=== PATIENT | female | born 1985 | race Caucasian/White ===

== ENCOUNTER 2018-04-30 15:58 | Emergency (ER) | payer MEDICARE, MEDICAID, SELFPAY ==
[2018-04-30 16:00] VITALS: BP 152/90; PULSE 103; RESP 18; TEMP 37.1; O2SAT 95; BMI 45.2
--- NOTE | 2018-04-30 16:10 | RAD_ITS ---
STUDY: X-RAY - ABDOMEN/PELVIS REASON FOR EXAM: Female, 33 years old. Constipation x3 days TECHNIQUE: Two AP supine views of the abdomen and pelvis. COMPARISON: None. FINDINGS: Normal visualized lung bases. Generalized paucity of bowel gas. Only mild fecal retention is noted in the rectosigmoid colon. There is no demonstrated free abdominal air. The visualized liver, spleen and kidneys are grossly normal in size and morphology. Normal soft tissue structures. Normal visualized osseous structures. RAD/Abdomen Single View IMPRESSION: No evidence of obstruction. Generalized paucity of bowel gas. Small amount of fecal retention in the rectosigmoid colon. Electronically Signed: Surendra Collins DO at 16:40 EDT Tel , Service support ,
--- NOTE | 2018-04-30 16:11 | ED.VISSUMM ---
- ER Visit Summary Date of Service: 04/30/18 Chief Complaint: Constipation History of Present Illness: The patient is a 33 F reports constipation for the past couple of days. She feels the urge to have a bowel movement but unable to pass stool. She reports rectal pressure but no abdominal pain. She denies any change in medication. She states she recently stopped drinking pop and started drinking more coffee. Prior abdominal surgery significant for cholecystectomy. She is on the Depo shot. Physical Examination: Vital signs unremarkable. Patient standing at bedside no acute distress. Heart is regular rate and rhythm. Lung sounds are clear. Abdomen is soft and nontender. Hypoactive bowel sounds noted throughout. Test Results: Abdominal x-ray reveals no obstruction. There is a small amount of fecal retention in the rectosigmoid colon. Emergency Department Course and Treatment: Rectal exam was performed. There is soft stool in the rectal vault. A soapsuds enema is performed with good results. On repeat evaluation patient feels significantly improved. Treatment Plan: [] Disposition: Discharge Impression: Constipation This note was generated with [employer] dictation software. It may contain incorrect words, spelling, and punctuation that were not noted in review of the chart prior to signing ED Disposition - Plan for ED Patient: Chief Complaint: Constipation Referrals: Winston Ruiz DO [Primary Care Provider] -
--- NOTE | 2018-04-30 18:12 | ED.DEP ---
ED Disposition - Plan for ED Patient: Disposition: Home or Assisted Living Chief Complaint: Constipation Instructions: ED Constipation Referrals: Winston Ruiz DO [Primary Care Provider] - As Needed
--- NOTE | 2018-04-30 18:21 | ED.RN ---
DISCHARGE INSTRUCTIONS GIVEN TO AND REVIEWED WITH PATIENT, PATIENT DENIES QUESTIONS OR CONCERNS AND VOICES UNDERSTANDING OF DISCHARGE INSTRUCTIONS. PT AMBULATES OUT OF ROOM WITHOUT DIFFICULTY .
== END 2018-04-30 18:22 | disposition home or self-care (01) ==
PROVIDERS: Emergency Provider Emergency Medicine; Family Provider Student in an Organized Health Care Education/Training Program; PCP Student in an Organized Health Care Education/Training Program
DX: K59.00 Constipation, unspecified (principal); E78.00 Pure hypercholesterolemia, unspecified; K21.9 Gastro-esophageal reflux disease without esophagitis; Z79.899 Other long term (current) drug therapy; Z72.0 Tobacco use
CPT/HCPCS: 74018; 99284

== ENCOUNTER 2020-05-31 07:12 | Emergency (ER) | payer MEDICARE, MEDICAID, SELFPAY ==
[2020-05-31 07:13] VITALS: BP 146/109; PULSE 99; RESP 16; TEMP 36.4; O2SAT 97; BMI 51.6
--- NOTE | 2020-05-31 07:23 | EKG12_ITS ---
Test Reason : Blood Pressure : / mmHG Vent. Rate : 087 BPM Atrial Rate : 087 BPM P-R Int : 164 ms QRS Dur : 100 ms QT Int : 380 ms P-R-T Axes : 045 011 018 degrees QTc Int : 457 ms Normal sinus rhythm Normal ECG Confirmed by CARLINE MELENDEZ, AUDRA ([id number]), production editor CODY LLANOS ([id number]) on 06/04/2020 11:12:47 AM Referred By: KRISTEN Confirmed By:AUDRA CROWLEY MD
--- NOTE | 2020-05-31 07:35 | ED.VIS.PSYCH ---
History of Present Illness Chief Complaint: Suicidal Informant: Patient Onset: Weeks Context: Sudden Onset Conflict: - - Is continued medication 1 month ago because father thought she was taking too many pills. She lives with her father and 2 children who are 13 and 10 years of age. Timing: Continuous Current Severity: Mild Maximum Severity: Moderate Worsened by: - - Continuation of medicine because her father thought she was taking too many medications. Relieved by: Nothing Associated Symptoms: Depressed, Change in sleeping, Decreased Interest, Suicidal Thoughts. Negative for: Change in Eating, Guilt, Hopelessness, Easily distracted, Grandiosity, Flight of Ideas, Increased activity, Pressured Speech, Agitated, Angry, Hostile, Threatening, Confusion, Paranoia, Visual Hallucinations, Auditory Hallucinations Specific plan (suicidal thought): Overdose Narrative: Patient a 35-year-old woman who has history of psychiatric disorders and has been admitted 13 times for suicidal ideation and prior attempts. She presents because she is thought of hurting herself for the past week. She states she would overdose. She discontinued taking her medications 1 month ago because her father told her that she is taking too many meds and she should not be on that many meds. She also states that he looked up the side effects and noted there were many side effects. Patient states she does not have menstrual periods. She did not have any exposure to person under investigation for Covid or symptoms of Covid. She has no other complaints. Prior similar symptoms: Yes Recent Illness/Hospitalization: No - Last admission several years ago. - Past Medical History (1) Suicidal behavior Status: Acute (2) Bipolar disorder Status: Chronic (3) Depression Status: Chronic (4) History of posttraumatic stress disorder (PTSD) Status: Chronic Past Medical History - Allergies and Home Meds Allergies/Adverse Reactions: Allergies adhesive tape Allergy (Verified 05/31/20 07:13) Rash mirtazapine [From Remeron] Adverse Reaction (Intermediate, Verified 04/30/18 16:00) EXTREME MOOD SWINGS EXTREME MOOD SWINGS Primary Care Physician: Winston Ruiz DO [Primary Care Provider] - Prior records reviewed: Yes Surgical History: cholecystectomy, - - states she had collapsed lungs at one time Lives: With Family Smoking Status: Former smoker Alcohol: None Drugs: None - Family History Maternal Family History: Reports: No pertinent history Paternal Family History: Reports: No pertinent history Review of Systems General: Denies: Chills, Fever, Sweats Eyes: Denies: Visual changes - bilaterally, Blurred Vision - bilaterally, Diplopia ENT: Denies: Bilateral ear pain, Rhinorrhea, Sore throat Cardiovascular: Denies: Chest pain, Palpitations Respiratory: Reports: Dyspnea on exertion - Patient states minimal activity causes her to be short of breath. This is a chronic issue.. Denies: Dyspnea, Cough Gastrointestinal: Denies: Abdominal pain, Nausea, Vomiting, Diarrhea, Melena, Hematochezia Genitourinary: Denies: Dysuria, Hematuria, Frequency Musculoskeletal: Denies: Back pain, Extremity Pain Skin: Denies: Rash, Wounds Neurological: Denies: Headache, Weakness, Numbness Psych: Reports: Depression, Anxiety, Suicidal thoughts, Suicidal ideations Endocrine: Denies: Polyuria, Polydipsia Hematologic: Denies: Easy bruising, Easy bleeding Physical Exam Vital Signs/Narrative: Vital Signs Temp Pulse Resp BP Pulse Ox 05/31/20 07:13 97.6 F L 99 16 146/109 H 97 Inital Vital Signs reviewed: Yes General: Well nourished, Well developed, Obese Head: Normocephalic, Atraumatic Eyes: Perrl, EOMI ENT: Moist mucous membranes, No rhinorrhea Neck: Supple, Nontender, No lymphadenopathy, No JVD Cardiovascular: Regular rate, Regular rhythm, No murmurs, Normal S1, Normal S2 Respiratory: No distress, CTA bilaterally, Chest nontender Abdomen: Soft, Nontender, Nondistended, Normal bowel sounds, No masses Back: Nontender, Normal Inspection Extremities: Nontender, No Edema, Healed prior injuries Skin: Normal color, No rash Neurological: Alert, Oriented x3, Cranial nerves II-XII grossly intact, Normal Strength, Normal Sensation Psych: Depressed, Blunted Affect, Poverty of Speech, Suicidal thoughts, Limited Insight, Limited Judgement. Negative for: Logical sequential goal directed thoughts, No suicidal or homicidal ideation, Normal Stable Appropriate Affect, Good Insight, Good Judgement, Normal Appearance, Irritable, Euphoric, Labile, Pressured Speech, Flight of Ideas, Incoherent thoughts, Homicidal thoughts, Hallucinations, Delusions, Paranoid Ideation Diagnostic/Tx/Re-eval Laboratory Results 05/31/20 05/31/20 05/31/20 07:40 07:40 07:40 WBC 8.1 RBC 5.33 Hgb 14.9 Hct 45.9 MCV 86.1 MCH 28.0 MCHC 32.5 RDW Std Deviation 38.7 RDW Coeff of Jeri 12.3 Plt Count 324 MPV 9.7 Immature Gran % (Auto) 0.400 Neut % (Auto) 49.4 Lymph % (Auto) 36.4 [place] % (Auto) 10.5 H Eos % (Auto) 2.6 Baso % (Auto) 0.7 Absolute Neuts (auto) 4.0 Absolute Lymphs (auto) 2.95 Nucleated RBC % 0 Sodium 139 Potassium 3.4 L Chloride 102 Carbon Dioxide 30.0 Anion Gap 7 BUN 10 Creatinine 0.88 Estim Creat Clear Calc 95.57 Est GFR (MDRD) Af Amer 94 Est GFR (MDRD) Non-Af 77 BUN/Creatinine Ratio 11.4 Glucose 98 Calcium 8.9 Serum , Qual Urine Color Urine Clarity Urine pH Ur Specific Mina Urine Protein Urine Glucose (UA) Urine Ketones Urine Occult Blood Urine Nitrite Urine Bilirubin Urine Urobilinogen Ur Leukocyte Esterase Urine RBC Urine WBC Ur Squamous Epith Cells Urine Bacteria Urine Mucus Urine Opiates Screen Urine Methadone Screen Ur Barbiturates Screen Ur Phencyclidine Scrn Ur Amphetamines Screen U Methamphetamin-MDMA U Benzodiazepines Scrn Urine Cocaine Screen U Cannabinoids Screen Ur Drug Screen Comment Ethyl Alcohol < 3.0 05/31/20 05/31/20 05/31/20 07:40 07:40 07:40 WBC RBC Hgb Hct MCV MCH MCHC RDW Std Deviation RDW Coeff of Jeri Plt Count MPV Immature Gran % (Auto) Neut % (Auto) Lymph % (Auto) [place] % (Auto) Eos % (Auto) Baso % (Auto) Absolute Neuts (auto) Absolute Lymphs (auto) Nucleated RBC % Sodium Potassium Chloride Carbon Dioxide Anion Gap BUN Creatinine Estim Creat Clear Calc Est GFR (MDRD) Af Amer Est GFR (MDRD) Non-Af BUN/Creatinine Ratio Glucose Calcium Serum , Qual NEGATIVE Urine Color Yellow Urine Clarity Clear Urine pH 6.0 Ur Specific Mina 1.015 Urine Protein Negative Urine Glucose (UA) Normal Urine Ketones Negative Urine Occult Blood 10 H Urine Nitrite Negative Urine Bilirubin Negative Urine Urobilinogen Normal Ur Leukocyte Esterase Negative Urine RBC 0-5 SEEN Urine WBC 0 SEEN Ur Squamous Epith Cells 5-10 SEEN Urine Bacteria 2+ Urine Mucus 0 SEEN Urine Opiates Screen NEGATIVE Urine Methadone Screen NEGATIVE Ur Barbiturates Screen NEGATIVE Ur Phencyclidine Scrn NEGATIVE Ur Amphetamines Screen NEGATIVE U Methamphetamin-MDMA NEGATIVE U Benzodiazepines Scrn NEGATIVE Urine Cocaine Screen NEGATIVE U Cannabinoids Screen NEGATIVE Ur Drug Screen Comment Ethyl Alcohol Has bacteriuria without symptoms. There is no evidence of infection since there is no pyuria and the macro is negative for leukoesterase and nitrites. This is a contaminated specimen since she has 5-10 epithelial cells which is abnormal. Her graph based on my medical opinion patient is medically cleared for transfer to psychiatric facility to receive definitive care for her depression and suicidal ideation. - EKG Initial EKG Interpretation: Sinus Rhythm - Normal sinus rhythm with a ventricular rate 87. CO interval 164 ms. QRS duration 100 ms. QT duration 380 ms. [place] is normal. The EKG is normal. Restraints applied: No Suicide precautions were initiated. Appropriate laboratory screening tests were ordered. Will obtain psychiatric evaluation for patient. Patient was accepted by psychiatrist at [facility]. [place] slip has been completed by me. ED Disposition - Plan for ED Patient: Disposition: Psychiatric Hospital or Unit Diagnosis: Depression with suicidal ideation Referrals: Winston Ruiz DO [Primary Care Provider] -
[2020-05-31 07:59] LABS: Mucous, Urine 0 SEEN /hpf (<or=2+); White Blood Cells 0 SEEN /hpf (0-5)
[2020-05-31 08:11] LABS: Color, Urine Yellow (Yellow); Glucose, Dipstick Normal (Normal); Ketone-Dipstick Negative (Negative); Leukocyte Esterase-Dipstick Negative /ul (Negative); Nitrite-Dipstick Negative (Negative); Occult Blood-Urine 10 /ul (Negative); Protein-Dipstick Negative (Negative); Specific Gravity, Urine 1.015 (1.002-1.030); Urine Bilirubin Dipstick Negative (Negative); Urine Clarity Clear (Clear); Urine Urobilinogen Normal (Normal)
[2020-05-31 08:16] VITALS: RESP 18
[2020-05-31 08:16] LABS: Absolute Lymphocyte Count 2.95 X10^3/uL (0.83-4.51); Basophil# 0.06 X10^3/uL; Basophil% 0.7 % (0-1); Eosinophil# 0.21 X10^3/uL; Eosinophils% 2.6 % (0-5); Hematocrit 45.9 % (37-47); Hemoglobin 14.9 g/dL (12.0-15.0); Lymphocyte # 2.95 X10^3/ul (4.0); Lymphocyte % 36.4 % (19-41); Mean Corp Hgb Conc 32.5 g/dL (32-36); Mean Corpuscular Volume 86.1 fL (81-99); Mean Platelet Vol. 9.7 fl (6.2-12.0); Monocyte# 0.85 X10^3/uL; Monocyte% 10.5 % (0-10); NRBC Flagged by Analyzer 0 % (0-5); Neutrophil % 49.4 % (47-70); Platelet Count 324 K/mm3 (150-450); RBC Distribution Width CV 12.3 % (11.6-14.6); RBC Distribution Width SD 38.7 fl (35.1-43.9); Red Blood Count 5.33 M/mm3 (4.2-5.4); White Blood Count 8.1 K/mm3 (4.4-11.0)
[2020-05-31 08:17] LABS: Bacteria 2+ /hpf (None Seen); Red Blood Cells-Urine 0-5 SEEN /hpf (0-5); Squamous Epithelial Cells - UA 5-10 SEEN /hpf (5-10)
[2020-05-31 08:19] LABS: Amphetamine Urine VISTA NEGATIVE (<1000 ng/mL); Barbiturate Urine VISTA NEGATIVE (< 200 ng/mL); Benzodiazepine Urine VISTA NEGATIVE (< 200 ng/mL); Cocaine Urine VISTA NEGATIVE (< 300 ng/mL); Ecstacy Urine VISTA NEGATIVE (< 500 ng/mL); Methadone Urine VISTA NEGATIVE (< 300 ng/mL); PCP Urine VISTA NEGATIVE (< 25 ng/mL); THC Urine VISTA NEGATIVE (< 50 ng/mL); Vista UDS pH Range 5
[2020-05-31 08:22] LABS: Internal QC Validated? YES +Cl - CLEAR BKGD; Pregnancy, Serum, hCG Quali. NEGATIVE Negative
[2020-05-31 08:24] LABS: Alcohol, Blood (Medical)-Serum < 3.0 mg/dL
[2020-05-31 08:25] LABS: Anion Gap 7 (5-15); BUN 10 mg/dL (7-18); BUN/Creat Ratio 11.4 RATIO (10-20); Calcium,Total 8.9 mg/dL (8.5-10.1); Chloride 102 mmol/L (98-107); Creatinine, Serum 0.88 mg/dL (0.55-1.02); EST Glomerular Filtration Rate 77 mL/min (>60); Est Glom Filt Rate - Afr Amer 94 mL/min (>60); Estimated Creatinine Clearance 95.57 ml/min; Glucose 98 mg/dL (74-106); Potassium 3.4 mmol/L (3.5-5.1); Sodium Level 139 mmol/L (136-145)
--- NOTE | 2020-05-31 08:31 | NURSING ---
CALLED [facility]. NEED TO FAX CHART TO THEM.
--- NOTE | 2020-05-31 08:39 | NURSING ---
FAXED CHART TO [facility]. [phone]
[2020-05-31] MEDS: LORazepam 1 MG Tablet PO (08:57)
--- NOTE | 2020-05-31 09:11 | NURSING ---
NORMAN, [facility], CALLED TO TALK TO PATIENT
[2020-05-31 10:08] VITALS: RESP 16
[2020-05-31 11:03] VITALS: RESP 14
--- NOTE | 2020-05-31 11:46 | NURSING ---
FAXED COVID RESULTS TO [facility]
--- NOTE | 2020-05-31 12:23 | CM.ED ---
Social Work Telephone call from Marce at [facility], Marce reporting that patient has been accepted at [facility] and to have updated ED staff on patient being accepted. Marce inquiring about this socially responsible investment adviser being able to assist with a release of information for patient director of casework department. Marce to fax release of information and this socially responsible investment adviser to speak with patient about signing release of information. Will continue to follow. Jacinta LIMA, VEGA
--- NOTE | 2020-05-31 12:48 | CM.ED ---
Social Work Release of information obtained. This social media project manager met with patient in room. Introduced self and social media project manager role. This social media project manager updated patient on patient transfer to [facility], patient voiced understanding. This social media project manager broached topic of release of information for the [facility]. Patient signing release of information. Patient with no further questions. Patient did request for patient father, Amaury to be updated on patient transfer. Telephone call to Amaury: This social media project manager updated Amaury on patient disposition. Amaury thanking this social media project manager. Signed release of information faxed back to the [facility]. Attn: Hanna. Jacinta Lancaster LINE HAUL OWNER OPERATOR, VEGA
[2020-05-31 13:00] VITALS: BP 119/81; PULSE 89; RESP 18; O2SAT 98
[2020-05-31 14:05] VITALS: PULSE 17
== END 2020-05-31 16:00 ==
PROVIDERS: Emergency Provider Emergency Medicine; PCP Student in an Organized Health Care Education/Training Program
DX: F31.9 Bipolar disorder, unspecified (principal); F43.10 Post-traumatic stress disorder, unspecified; R45.851 Suicidal ideations; E66.9 Obesity, unspecified; Z87.891 Personal history of nicotine dependence; Z91.5 Personal history of self-harm
CPT/HCPCS: 80048; 80307; 80320; 81001; 84703; 85025; 87635; 93005; 99284; G0480; U0002

== ENCOUNTER 2020-11-04 08:50 | Emergency (ER) | payer MEDICARE, MEDICAID, SELFPAY ==
[2020-11-04 08:51] VITALS: BP 165/111; PULSE 105; RESP 16; TEMP 35.7; O2SAT 99; BMI 61.6
--- NOTE | 2020-11-04 09:05 | ED.DCSUM_ITS ---
History of Present Illness Chief Complaint: Chest Pain Informant: Patient Narrative: 35-year-old female presents with chest pain that radiates to her back for several months. She states that it worse with eating and swallowing. She states that yesterday she could feel her food going down the center of her chest going into her back and it burned. It is worse with laying down. She states that her blood pressure was recently elevated and she was placed on lisinopril 10 mg. This was 1 month ago. She tells me that she missed her appointment for follow-up. She states that she takes 2 medications for heartburn as this feels similar she wanted to mention that. She had an appointment with a surgeon who recommended an EGD but that they could not proceed into her blood pressure was better. She currently takes famotidine and pantoprazole for GERD. She states she has been on those 2 medications for years. The patient states that she has some mental health disorders that present her from regularly seeing doctors. She called her doctor's office today to schedule follow-up but she states she was referred here for chest pain evaluation. She denies any known coronary artery disease. She has a history of smoking (having quit greater than 3 months ago) as well as polysubstance drug abuse. She denies any prior stress test or heart catheterization. - Past Medical History (1) Bipolar disorder Status: Chronic (2) Depression Status: Chronic (3) Anxiety Status: Chronic Past Medical History - Allergies and Home Meds Allergies/Adverse Reactions: Allergies adhesive tape Allergy (Verified 11/04/20 08:51) Rash mirtazapine [From Remeron] Adverse Reaction (Intermediate, Verified 11/04/20 08:51) EXTREME MOOD SWINGS EXTREME MOOD SWINGS Primary Care Physician: Winston Ruiz DO [Primary Care Provider] - 1 Week Past Medical History: - - Hypertension GERD Surgical History: cholecystectomy, - - states she had collapsed lungs at one time Smoking Status: Former smoker Drugs: - - Sober - Family History Maternal Family History: Reports: No pertinent history Paternal Family History: Reports: No pertinent history Review of Systems General: Reports: Malaise. Denies: Chills, Fever, Sweats Eyes: Denies: Visual changes - bilaterally, Diplopia ENT: Denies: Rhinorrhea, Sore throat Cardiovascular: Reports: Chest pain. Denies: Palpitations Respiratory: Denies: Dyspnea, Cough, Dyspnea on exertion Gastrointestinal: Reports: Nausea. Denies: Abdominal pain, Vomiting, Diarrhea, Melena, Hematochezia Genitourinary: Denies: Dysuria, Hematuria, Frequency Musculoskeletal: Denies: Back pain, Extremity Pain Skin: Denies: Rash, Wounds Neurological: Denies: Headache, Weakness, Numbness Physical Exam Vital Signs/Narrative: Vital Signs Temp Pulse Resp BP Pulse Ox 11/04/20 08:51 96.3 F L 105 H 16 165/111 H 99 Inital Vital Signs reviewed: Yes General: Well nourished, Well developed, Obese, No Acute Distress Head: Normocephalic, Atraumatic Eyes: Perrl, EOMI ENT: Moist mucous membranes, No rhinorrhea Neck: Supple, Nontender Cardiovascular: Regular rate, Regular rhythm, No murmurs Respiratory: No distress, CTA bilaterally, Chest nontender Abdomen: Soft, Nontender, Nondistended, Normal bowel sounds Back: Nontender, Normal Inspection Extremities: Nontender, No edema Skin: Normal color, No rash, - - Multiple healed extremity lacerations from self cutting Neurological: Alert, Oriented x3, Cranial nerves II-XII grossly intact, Normal Strength, Normal Sensation Psychological: Normal affect, Normal Mood Diagnostic/Tx/Re-eval Clinical Impression(s) from Imaging Studies Chest X-Ray 11/04/20 09:36 IMPRESSION: Normal x-ray examination of the chest and unchanged since 03/17/2016. Electronically Signed: Phong Rizzo MD at 10:01 EDT , Service support , Laboratory Last Values WBC 7.0 K/mm3 (4.4-11.0) 11/04/20 09:25 RBC 4.97 M/mm3 (4.2-5.4) 11/04/20 09:25 Hgb 13.8 g/dL (12.0-15.0) 11/04/20 09:25 Hct 41.6 % (37-47) 11/04/20 09:25 MCV 83.7 fL (81-99) 11/04/20 09:25 MCH 27.8 pg (27.0-32.0) 11/04/20 09:25 MCHC 33.2 g/dL (32-36) 11/04/20 09:25 RDW Std Deviation 38.5 fl (35.1-43.9) 11/04/20 09:25 RDW Coeff of Jeri 12.8 % (11.6-14.6) 11/04/20 09:25 Plt Count 303 K/mm3 (150-450) 11/04/20 09:25 MPV 9.9 fl (6.2-12.0) 11/04/20 09:25 Immature Gran % (Auto) 0.100 % (0.0-0.9) 11/04/20 09:25 Neut % (Auto) 47.0 % (47-70) 11/04/20 09:25 Lymph % (Auto) 38.9 % (19-41) 11/04/20 09:25 [place] % (Auto) 10.4 % (0-10) H 11/04/20 09:25 Eos % (Auto) 2.9 % (0-5) 11/04/20 09:25 Baso % (Auto) 0.7 % (0-1) 11/04/20 09:25 Absolute Neuts (auto) 3.3 X10^3/uL (2.0-7.7) 11/04/20 09:25 Absolute Lymphs (auto) 2.73 X10^3/uL (0.83-4.51) 11/04/20 09:25 Nucleated RBC % 0 % (0-5) 11/04/20 09:25 Sodium 135 mmol/L (136-145) L 11/04/20 09:25 Potassium 4.3 mmol/L (3.5-5.1) 11/04/20 09:25 Chloride 102 mmol/L (98-107) 11/04/20 09:25 Carbon Dioxide 29.0 mmol/L (21.0-32.0) 11/04/20 09:25 Anion Gap 4 (5-15) L 11/04/20 09:25 BUN 8 mg/dL (7-18) 11/04/20 09:25 Creatinine 0.81 mg/dL (0.55-1.02) 11/04/20 09:25 Estim Creat Clear Calc 89.89 ml/min 04/05/21 09:25 Est GFR (MDRD) Af Amer 102 mL/min (>60) 11/04/20 09:25 Est GFR (MDRD) Non-Af 85 mL/min (>60) 11/04/20 09:25 BUN/Creatinine Ratio 9.9 RATIO (10-20) L 11/04/20 09:25 Glucose 112 mg/dL (74-106) H 11/04/20 09:25 Calcium 8.7 mg/dL (8.5-10.1) 11/04/20 09:25 Troponin I < 0.015 ng/mL (<0.045) 11/04/20 09:25 - EKG Initial EKG Interpretation: Sinus Rhythm - EKG demonstrates a normal sinus rhythm at a rate of 91. No concerning features of ACS or ectopy noted. This appears grossly unchanged from EKG dated 31 May 2020. - Medical Decision Making Potation of the single portable chest x-ray is no acute process. EKG is a normal sinus rhythm. CBC BMP negative and troponin is negative. Patient does have risk factors for coronary artery disease (obesity and being a former smoker) I think is more likely that her chest pain is noncardiac from GERD and possibly from her hypertension. Her can increase her lisinopril to 20 mg a day have her record her readings and discuss with her doctor. I can also add some Carafate. She needs to see her doctor in about 1 week and they can reevaluate discuss potential need for cardiac stress testing. ED Disposition - Plan for ED Patient: Disposition: Home or Assisted Living Diagnosis: Hypertension, Chest pain, GERD (gastroesophageal reflux disease), Obesity Instructions: ED Chest Pain, Uncertain Cause, ED GERD (Adult), ED Hypertension, Established Prescriptions: Sucralfate [Carafate] 1 gm PO 4X/DAY #56 tab Prescription Printed Lisinopril [Zestril] 20 mg PO DAILY #30 tab Prescription Printed Referrals: Winston Ruiz DO [Primary Care Provider] - 1 Week Additional Instructions: I would recommend increasing your lisinopril to 20 mg a day. You should monitor your blood pressure and report the readings to your doctor in 1 week. I would recommend adding Carafate to your reflux regimen for the next 2 weeks.
--- NOTE | 2020-11-04 09:22 | EKG12_ITS ---
Test Reason : CP Blood Pressure : / mmHG Vent. Rate : 091 BPM Atrial Rate : 091 BPM P-R Int : 158 ms QRS Dur : 094 ms QT Int : 378 ms P-R-T Axes : 034 018 014 degrees QTc Int : 464 ms Normal sinus rhythm Normal ECG Confirmed by JUAREZ MELENDEZ, JULI ([id number]), staff editor FOREIGN SIMENTAL ([id number]) on 11/08/2020 2:22:45 PM Referred By: LING Confirmed By:JULI PIZARRO MD
--- NOTE | 2020-11-04 09:36 | RAD_ITS ---
STUDY: X-RAY CHEST REASON FOR EXAM: Female, 35 years old. Chest pain TECHNIQUE: AP upright portable view. COMPARISON: 03/17/2016. FINDINGS: The lungs are clear and expanded. There is no demonstrated pleural abnormality. Normal size heart. Normal mediastinum and sharlene. Normal visualized pulmonary arteries. Normal visualized aortic arch and descending thoracic aorta. Normal visualized thoracic spine. Normal visualized ribs, clavicles, and shoulders. There is no demonstrated abnormality of the visualized soft tissue structures of the upper abdomen. RAD/Chest 1 View (Portable) IMPRESSION: Normal x-ray examination of the chest and unchanged since 03/17/2016. Electronically Signed: Phong Rizzo MD at 10:01 EDT , Service support ,
[2020-11-04 09:40] LABS: Absolute Lymphocyte Count 2.73 X10^3/uL (0.83-4.51); Absolute Neutrophil Count 3.3 X10^3/uL (2.0-7.7); Basophil# 0.05 X10^3/uL; Basophil% 0.7 % (0-1); Eosinophils% 2.9 % (0-5); Hematocrit 41.6 % (37-47); Hemoglobin 13.8 g/dL (12.0-15.0); Lymphocyte # 2.73 X10^3/ul (4.0); Lymphocyte % 38.9 % (19-41); Mean Corp Hgb Conc 33.2 g/dL (32-36); Mean Corpuscular Hgb 27.8 pg (27.0-32.0); Mean Corpuscular Volume 83.7 fL (81-99); Mean Platelet Vol. 9.9 fl (6.2-12.0); Monocyte# 0.73 X10^3/uL; Monocyte% 10.4 % (0-10); NRBC Flagged by Analyzer 0 % (0-5); Neutrophil # 3.29 X10^3/uL (2.7-7.7); Platelet Count 303 K/mm3 (150-450); RBC Distribution Width CV 12.8 % (11.6-14.6); RBC Distribution Width SD 38.5 fl (35.1-43.9); Red Blood Count 4.97 M/mm3 (4.2-5.4)
[2020-11-04 10:06] LABS: Anion Gap 4 (5-15); BUN 8 mg/dL (7-18); BUN/Creat Ratio 9.9 RATIO (10-20); Calcium,Total 8.7 mg/dL (8.5-10.1); Chloride 102 mmol/L (98-107); Creatinine, Serum 0.81 mg/dL (0.55-1.02); EST Glomerular Filtration Rate 85 mL/min (>60); Est Glom Filt Rate - Afr Amer 102 mL/min (>60); Estimated Creatinine Clearance 89.89 ml/min; Glucose 112 mg/dL (74-106); Potassium 4.3 mmol/L (3.5-5.1); Sodium Level 135 mmol/L (136-145)
[2020-11-04 10:29] VITALS: BP 185/121; PULSE 74; RESP 16; O2SAT 97
== END 2020-11-04 10:29 | disposition home or self-care (01) ==
PROVIDERS: Emergency Provider Emergency Medicine; PCP Student in an Organized Health Care Education/Training Program
DX: R07.9 Chest pain, unspecified (principal); I10 Essential (primary) hypertension; K21.9 Gastro-esophageal reflux disease without esophagitis; F31.9 Bipolar disorder, unspecified; E66.9 Obesity, unspecified; Z68.44 Body mass index [BMI] 60.0-69.9, adult; Z79.899 Other long term (current) drug therapy; Z87.891 Personal history of nicotine dependence
CPT/HCPCS: 71045; 80048; 84484; 85025; 93005; 99285

== ENCOUNTER 2021-01-21 13:11 | Emergency (ER) | payer MEDICARE, MEDICAID, SELFPAY ==
[2021-01-21 13:12] VITALS: BP 130/59; PULSE 108; RESP 18; TEMP 36.2; O2SAT 96; BMI 55.9
--- NOTE | 2021-01-21 13:14 | RAD_ITS ---
STUDY: X-RAY - LEFT ANKLE REASON FOR EXAM: Female, 35 years old. INJURY TECHNIQUE: view(s) of the ankle. COMPARISON: None. FINDINGS: There is no evidence of osseous or articular abnormality seen. The ankle mortise is unremarkable. No soft tissue swelling There is large plantar heel spur. RAD/Ankle min 3 Views IMPRESSION: There is evidence of plantar heel spur there rest of the study is negative. Electronically Signed: [place], at 13:36 EDT Tel , Service support ,
--- NOTE | 2021-01-21 15:26 | EDS_ITS ---
HPI History of Present Illness HPI Narrative: Patient presents with left ankle injury that occurred yesterday. Patient states she tripped and fell. Patient states her pain is worse over the ankle and forefoot. Patient describes her pain as dull and aching. Patient states pain is worse with movement and weightbearing. Patient denies any paresthesias or weakness. Patient denies any other injuries. Chief Complaint: Lower Extremity Injury Occured/Mechanism Mechanism/Context: Yes fall Onset/Context/Timing Onset: Yesterday Context: Sudden Onset Timing: Continuous Quality of Pain: Dull and Aching Location: Left foot and ankle Worsened by: Weightbearing and ambulation Relieved by: Nothing Associated Symptoms Associated Symptoms: Negative for Parasthesia and Weakness PFSH [facility] Medical History Bipolar disorder Home Medications pantoprazole 40 mg PO DAILY 12/19/15 [History Last Taken 02/18/17 08:00] cholecalciferol (vitamin D3) 1 cap PO MO 02/11/17 [History Last Taken Unknown] duloxetine 30 mg PO DAILY 11/04/20 [History Last Taken Unknown] famotidine 40 mg PO BID 11/04/20 [History Last Taken Unknown] lisinopril 10 mg PO DAILY 11/04/20 [History Last Taken Unknown] lisinopril 20 mg PO DAILY #30 tab 11/04/20 [Rx Last Taken Unknown] sucralfate 1 gm PO 4X/DAY #56 tab 11/04/20 [Rx Last Taken Unknown] Allergy/AdvReac Type Severity Reaction Status Date / Time adhesive tape Allergy Rash Verified 01/21/21 13:13 mirtazapine [From Remeron] AdvReac Intermediate EXTREME Verified 01/21/21 13:13 MOOD SWINGS Social History Smoking Status: Never smoker ROS ROS ED Constitutional Constitutional ED: Denies chills or fever(s) Eyes Eyes: Denies blurry vision or change in vision ENT ENT ED: Denies rhinorrhea or sore throat Cardiovascular Cardiovascular: Denies chest pain or palpitations Respiratory/Chest Respiratory/Chest: Denies cough or dyspnea Gastrointestinal Gastrointestinal: Denies nausea or vomiting Genitourinary Genitourinary ED: Denies dysuria or hematuria Musculoskeletal Musculoskeletal: Denies back pain or neck pain Integumentary Denies abscess or rash Neurologic Neurologic: Denies headache(s) or weakness Allergic/Immunologic Allergic/Immunologic ED: Denies mouth swelling or urticaria EXAM Physical Exam Const Vital Signs: 01/21/21 13:12 01/21/21 15:44 Temperature 97.2 F L Temperature Source Temporal Pulse Rate 108 H 81 Respiratory Rate 18 18 Blood Pressure 130/59 H Blood Pressure Mean 82 Pulse Ox 96 Oxygen Delivery Method Room Air Positive well nourished, well developed and obese General Appearance ED: well developed Nutritional Appearance: obese HEENT Reports moist mucous membranes normocephalic Extremity Extremity Narrative: There is tenderness and mild edema over the left forefoot, midfoot, and left ankle. There is no deformity. There is no bony crepitance or step-off. There is no ecchymosis noted. Range of motion was limited in all motions of the left foot and ankle secondary to pain. Pedal pulses are equal bilateral. Sensation was intact to light touch in all digits. Capillary refill was less than 2 seconds in all digits. Neuro oriented x3, CN's II-XII intact bilaterally, moves all extremities and no sensory deficits noted Sensorium / Orientation: alert Psych mental status grossly normal MDM MDM MDM Narrative Medical decision making narrative: X-rays of the left foot were obtained. There are 3 views. On my interpretation, there is no acute fracture. There is no dislocation. There is no soft tissue swelling. Radiologist also interpreted the x-rays and agrees. Patient was given a walking boot. Patient was instructed to ice and elevate the left foot and ankle. Patient was instructed to take Tylenol as needed for pain. Patient was instructed to follow-up with her primary care physician in 5 to 7 days. Patient understood and was agreeable with the plan. All questions were answered. Radiography Diagnostic Testing: Radiology Impression Ankle X-Ray 01/21/21 13:14 IMPRESSION: There is evidence of plantar heel spur there rest of the study is negative. Electronically Signed: Sarwat Murphyjacey, at 13:36 EDT Tel , Service support , Discharge Plan Triage Chief Complaint: Lower Extremity Injury ED Provider: Parviz Condon Dx/Rx/DC Orders Clinical Impression: Sprain of left foot Instructions: ED Foot Sprain Prescriptions: No Action pantoprazole 40 MG tablet 40 mg PO DAILY RF: 0 cholecalciferol (vitamin D3) 50,000 UNIT capsule 1 cap PO MO RF: 0 famotidine 40 MG tablet 40 mg PO BID RF: 0 lisinopril 10 MG tablet 10 mg PO DAILY RF: 0 duloxetine 30 MG capsule 30 mg PO DAILY RF: 0 lisinopril 20 MG tablet 20 mg PO DAILY Qty: 30 RF: 0 sucralfate 1 GM tablet 1 gm PO 4X/DAY Qty: 56 RF: 0 Primary Care Provider: Winston Ruiz Referrals: Wisnton Ruiz DO [Primary Care Provider] - 5-7 Days Disposition Disposition: Home, Self Care Discharge Date/Time: 01/21/21 15:47
[2021-01-21 15:44] VITALS: PULSE 81; RESP 18
--- NOTE | 2021-01-21 15:46 | ED.RN ---
THIS NURSE REVIEWED D/C INSTRUCTIONS WITH PT. PT VERBALIZED UNDERSTANDING OF INSTRUCTIONS. PT DENIES FURTHER NEEDS OR QUESTIONS AT THIS TIME
== END 2021-01-21 15:47 | disposition home or self-care (01) ==
PROVIDERS: Emergency Provider Emergency Medicine; PCP Student in an Organized Health Care Education/Training Program
DX: S93.602A Unspecified sprain of left foot, initial encounter (principal); E66.9 Obesity, unspecified; W01.0XXA Fall on same level from slipping, tripping and stumbling without subsequent striking against object, initial encounter
CPT/HCPCS: 73610; 99282

== ENCOUNTER 2021-04-30 13:01 | Emergency (ER) | payer MEDICARE, MEDICAID, SELFPAY ==
[2021-04-30 13:02] VITALS: BP 164/131; PULSE 120; RESP 19; TEMP 36.3; O2SAT 100; BMI 53.1
--- NOTE | 2021-04-30 14:20 | EDS_ITS ---
HPI History of Present Illness Chief Complaint: Suicidal Informant: patient Onset/Context/Timing Onset: Month(s) Context: Gradual Onset Timing: Continuous Quality: Suicidal thoughts Worsened by: Nothing Relieved by: Nothing Narrative Narrative: Patient presents with suicidal ideations that have been getting worse over the past few months. Patient states she stopped taking her medications months ago. Patient states she has thought of overdosing on her pills. Patient states that after she stopped taking her medications the started using medical marijuana. Patient states she stopped that 3 days ago. Patient states she has been having some auditory and visual hallucinations. Patient states her visual hallucinations were that the blanket on her bed was moving and she was seeing shadows and flashes of light. Patient states her auditory hallucinations were hearing music and a john of air past her ear. PFSH PFS Medical History (Updated 04/30/21 @ 17:[address] Parviz Condon DO) Bipolar disorder HTN (hypertension) Home Medications NK 04/30/21 [History Last Taken Unknown] Allergy/AdvReac Type Severity Reaction Status Date / Time adhesive tape Allergy Rash Verified 04/30/21 13:04 mirtazapine [From Remeron] AdvReac Intermediate EXTREME Verified 04/30/21 13:04 MOOD SWINGS Surgical History (Updated 04/30/21 @ 14:[address] Parviz Condon DO) History of lung surgery Hx of cholecystectomy Social History (Updated 04/30/21 @ 14:[address] Parviz Condon DO) Smoking Status: Former smoker substance use type: marijuana ROS ROS ED Constitutional Constitutional ED: Denies chills or fever(s) Eyes Eyes: Denies blurry vision or change in vision ENT ENT ED: Denies rhinorrhea or sore throat Cardiovascular Cardiovascular: Denies chest pain or palpitations Respiratory/Chest Respiratory/Chest: Reports dyspnea; Denies cough Gastrointestinal Gastrointestinal: Reports nausea and vomiting Genitourinary Genitourinary ED: Denies dysuria or hematuria Musculoskeletal Musculoskeletal: Reports back pain and neck pain Integumentary Denies abscess or rash Neurologic Neurologic: Reports headache(s); Denies weakness Psychiatric Psychiatric: Reports depression, suicidal thoughts and visual hallucinations Allergic/Immunologic Allergic/Immunologic ED: Denies mouth swelling or urticaria EXAM Physical Exam Const Vital Signs: 04/30/21 13:02 04/30/21 17:07 04/30/21 18:46 Temperature 97.3 F L Temperature Source Temporal Pulse Rate 120 H 88 78 Respiratory Rate 19 H 18 16 Blood Pressure 164/131 H 132/91 H Blood Pressure Mean 142 104 Pulse Ox 100 98 Oxygen Delivery Method Room Air Room Air 04/30/21 20:26 04/30/21 21:38 Temperature Temperature Source Pulse Rate Respiratory Rate 20 H 18 Blood Pressure Blood Pressure Mean Pulse Ox Oxygen Delivery Method Positive well nourished, well developed and obese General Appearance ED: well developed Nutritional Appearance: obese morbidly obese HEENT normocephalic and atraumatic Neck supple and no JVD Resp normal respiratory effort and clear to auscultation bilaterally Cardio no murmurs Rate: regular rate Rhythm: regular rhythm GI non-tender and non-distended Auscultation: normoactive bowel sounds Palpation: soft Extremity normal to inspection General Extremety ED: Negative for edema or tenderness General Extremity: Negative for edema Neuro oriented x3, CN's II-XII intact bilaterally and no sensory deficits noted Sensorium / Orientation: alert Motor Exam: strength 5/5 throughout Psych mental status grossly normal Activity / Motor Behavior: avoids eye contact Speech: soft Mood & Affect: depressed and flat affect Thought Content: suicidality Skin Rashes: no rashes MDM MDM MDM Narrative Medical decision making narrative: Patient was given a dose of Vistaril here for her anxiety. CBC and comprehensive metabolic profile were obtained and were essentially within normal limits. Serum alcohol level was normal. Urine toxin was positive for benzodiazepines and cannabinoids. Serum hCG was negative. EKG was obtained. On my interpretation, it showed a normal sinus rhythm with a rate of 78. ND interval, QRS interval, and QTc intervals were all normal. [place] was normal. There are no acute ST or T wave changes. Patient is medically cleared for psychiatric placement. [place] slip was placed on the chart. highway maintenance worker is attempting to find placement for the patient. She was able to find placement at [facility]. Patient will be transferred there. Lab Data Attestation: I reviewed the patient's lab results. Labs: Laboratory Results - last 24 hr 04/30/21 04/30/21 04/30/21 14:09 14:09 14:09 WBC 5.7 RBC 5.72 H Hgb 15.9 H Hct 49.1 H MCV 85.8 MCH 27.8 MCHC 32.4 RDW Std Deviation 40.3 RDW Coeff of Jeri 13.1 Plt Count 352 MPV 10.3 Immature Gran % (Auto) 0.000 Neut % (Auto) 47.2 Lymph % (Auto) 40.9 [place] % (Auto) 8.5 Eos % (Auto) 2.5 Baso % (Auto) 0.9 Absolute Neuts (auto) 2.7 Absolute Lymphs (auto) 2.32 Nucleated RBC % 0 Sodium 139 Potassium 3.7 Chloride 102 Carbon Dioxide 29.0 Anion Gap 8 BUN 6 L Creatinine 0.96 Estim Creat Clear Calc 86.76 Est GFR (MDRD) Af Amer 84 Est GFR (MDRD) Non-Af 69 BUN/Creatinine Ratio 6.2 L Glucose 101 Calcium 10.2 H Total Bilirubin 1.10 H AST 154 H ALT 107 H Alkaline Phosphatase 80 Total Protein 8.4 H Albumin 4.7 Globulin 3.7 Albumin/Globulin Ratio 1.3 Serum , Qual Urine Opiates Screen Urine Methadone Screen Ur Barbiturates Screen Ur Phencyclidine Scrn Ur Amphetamines Screen U Methamphetamin-MDMA U Benzodiazepines Scrn Urine Cocaine Screen U Cannabinoids Screen Ur Drug Screen Comment Ethyl Alcohol < 3.0 04/30/21 04/30/21 14:09 16:15 WBC RBC Hgb Hct MCV MCH MCHC RDW Std Deviation RDW Coeff of Jeri Plt Count MPV Immature Gran % (Auto) Neut % (Auto) Lymph % (Auto) [place] % (Auto) Eos % (Auto) Baso % (Auto) Absolute Neuts (auto) Absolute Lymphs (auto) Nucleated RBC % Sodium Potassium Chloride Carbon Dioxide Anion Gap BUN Creatinine Estim Creat Clear Calc Est GFR (MDRD) Af Amer Est GFR (MDRD) Non-Af BUN/Creatinine Ratio Glucose Calcium Total Bilirubin AST ALT Alkaline Phosphatase Total Protein Albumin Globulin Albumin/Globulin Ratio Serum , Qual NEGATIVE Urine Opiates Screen NEGATIVE Urine Methadone Screen NEGATIVE Ur Barbiturates Screen NEGATIVE Ur Phencyclidine Scrn NEGATIVE Ur Amphetamines Screen NEGATIVE U Methamphetamin-MDMA NEGATIVE U Benzodiazepines Scrn POSITIVE H Urine Cocaine Screen NEGATIVE U Cannabinoids Screen POSITIVE H Ur Drug Screen Comment Ethyl Alcohol EKG Initial EKG: Attestation: I personally reviewed and interpreted this EKG as follows: Interpretation: Sinus Rhythm (78) and No Acute Injury Pattern Prior EKG tracings: available for review Prior: Unchanged (11/04/2020) Discharge Plan Triage Chief Complaint: Suicidal ED Provider: Parviz Condon Dx/Rx/DC Orders Clinical Impression: Depression with suicidal ideation Prescriptions: No Action NK RF: 0 Primary Care Provider: Winston Ruiz Referrals: Winston Ruiz DO [Primary Care Provider] - Disposition Disposition: Psychiatric Hospital or Unit Discharge Location: [facility]
[2021-04-30 14:42] LABS: Absolute Lymphocyte Count 2.32 X10^3/uL (0.83-4.51); Absolute Neutrophil Count 2.7 X10^3/uL (2.0-7.7); Basophil# 0.05 X10^3/uL; Basophil% 0.9 % (0-1); Eosinophil# 0.14 X10^3/uL; Eosinophils% 2.5 % (0-5); Hematocrit 49.1 % (37-47); Hemoglobin 15.9 g/dL (12.0-15.0); Lymphocyte # 2.32 X10^3/ul (0.83-4.51); Lymphocyte % 40.9 % (19-41); Mean Corp Hgb Conc 32.4 g/dL (32-36); Mean Corpuscular Hgb 27.8 pg (27.0-32.0); Mean Corpuscular Volume 85.8 fL (81-99); Mean Platelet Vol. 10.3 fl (6.2-12.0); Monocyte# 0.48 X10^3/uL; Monocyte% 8.5 % (0-10); NRBC Flagged by Analyzer 0 % (0-5); Neutrophil # 2.68 X10^3/uL (2.7-7.7); Neutrophil % 47.2 % (47-70); Platelet Count 352 K/mm3 (150-450); RBC Distribution Width CV 13.1 % (11.6-14.6); RBC Distribution Width SD 40.3 fl (35.1-43.9); Red Blood Count 5.72 M/mm3 (4.2-5.4); White Blood Count 5.7 K/mm3 (4.4-11.0)
[2021-04-30 14:44] LABS: Internal QC Validated? YES +Cl - CLEAR BKGD; Pregnancy, Serum, hCG Quali. NEGATIVE Negative
[2021-04-30 14:48] LABS: Alcohol, Blood (Medical)-Serum < 3.0 mg/dL
[2021-04-30 14:53] LABS: ALB/GLOB Ratio 1.3 RATIO (0.9-2.4); AST(SGOT) 154 U/L (15-37); Alanine Aminotransfer ALT/SGPT 107 U/L (13-56); Albumin, Serum 4.7 g/dL (3.2-5.0); Alkaline Phosphatase 80 U/L (45-117); Anion Gap 8 (5-15); BUN 6 mg/dL (7-18); BUN/Creat Ratio 6.2 RATIO (10-20); Calcium,Total 10.2 mg/dL (8.5-10.1); Chloride 102 mmol/L (98-107); Creatinine, Serum 0.96 mg/dL (0.55-1.02); EST Glomerular Filtration Rate 69 mL/min (>60); Est Glom Filt Rate - Afr Amer 84 mL/min (>60); Estimated Creatinine Clearance 86.76 ml/min; Globulin 3.7 g/dL (2.2-4.2); Glucose 101 mg/dL (74-106); Potassium 3.7 mmol/L (3.5-5.1); Protein, Total 8.4 g/dL (6.4-8.2); Sodium Level 139 mmol/L (136-145)
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
--- NOTE | 2021-04-30 16:23 | CM.ED ---
SOCIAL WORK Referral called and faxed to [facility]. Pending review at this time. Sushma Sena, CABLE FORMER, DIESEL ENGINE ASSEMBLER
[2021-04-30] MEDS: hydrOXYzine PAM 25 MG Capsule PO (16:36)
--- NOTE | 2021-04-30 16:57 | ED.RN ---
PT'S CREDIT CARD FOUND BY THIS RN IN BATHROOM. CREDIT CARD PLACED IN PATIENT BELONGINGS SINCE PT IS IN SUICIDAL PRECAUTIONS
[2021-04-30 17:05] LABS: Amphetamine Urine VISTA NEGATIVE (<1000 ng/mL); Barbiturate Urine VISTA NEGATIVE (< 200 ng/mL); Benzodiazepine Urine VISTA POSITIVE (< 200 ng/mL); Cocaine Urine VISTA NEGATIVE (< 300 ng/mL); Ecstacy Urine VISTA NEGATIVE (< 500 ng/mL); Methadone Urine VISTA NEGATIVE (< 300 ng/mL); PCP Urine VISTA NEGATIVE (< 25 ng/mL); THC Urine VISTA POSITIVE (< 50 ng/mL); Vista UDS pH Range 5
[2021-04-30 17:07] VITALS: BP 132/91; PULSE 88; RESP 18; O2SAT 98
--- NOTE | 2021-04-30 17:34 | EKG12_ITS ---
Test Reason : MEDICAL CLEARANCE Blood Pressure : / mmHG Vent. Rate : 078 BPM Atrial Rate : 078 BPM P-R Int : 170 ms QRS Dur : 100 ms QT Int : 396 ms P-R-T Axes : 050 016 023 degrees QTc Int : 451 ms Normal sinus rhythm Normal ECG Confirmed by CARLINE MELENDEZ, AUDRA ([id number]), editor news CODY LLANOS ([id number]) on 05/05/2021 7:46:52 AM Referred By: DAVID Confirmed By:AUDRA CROWLEY MD
--- NOTE | 2021-04-30 17:48 | CM.ED ---
SOCIAL WORK Received call from [employer] requesting EKG and copy of [place]. EKG obtained. Copies faxed to [facility] at this time. Sushma Sena, PENCILLER, RAIL CAR MECHANIC
--- NOTE | 2021-04-30 18:04 | CM.ED ---
SOCIAL WORK Patient accepted to [facility] by Dr. Quinteros. Patient to go to room 111B. Nurse to call report to [phone]. Rn Lpn Lvn to set up transport. Patient updated. Sushma Sena MSW, GRADUATE TEACHING ASSISTANT
--- NOTE | 2021-04-30 18:26 | ED.RN ---
2 ATTEMPTS TO GIVE REPORT. THEY ARE TO CALL BACK.
[2021-04-30 18:46] VITALS: PULSE 78; RESP 16
--- NOTE | 2021-04-30 20:04 | CM.ED ---
SOCIAL WORK Attempted to contact [facility] and [facility] for transportation due to long wait time through [employer]. Both companies report unable to help with transport. Sushma Sena, VB NET DEVELOPER, GEODETIC TECHNICIAN
[2021-04-30 20:26] VITALS: RESP 20
[2021-04-30] MEDS: Famotidine 20 MG Tablet 40 MG PO (20:46)
[2021-04-30 21:38] VITALS: RESP 18
[2021-04-30] MEDS: MELATONIN 10 MG TABLET PO (22:45)
== END 2021-05-01 01:19 ==
PROVIDERS: Emergency Provider Emergency Medicine; PCP Student in an Organized Health Care Education/Training Program
DX: F32.9 Major depressive disorder, single episode, unspecified (principal); R45.851 Suicidal ideations; E66.01 Morbid (severe) obesity due to excess calories; F12.10 Cannabis abuse, uncomplicated; Z87.891 Personal history of nicotine dependence
CPT/HCPCS: 80053; 80307; 82077; 84703; 85025; 87426; 93005; 99285

== ENCOUNTER 2021-06-26 22:38 | Emergency (ER) | payer MEDICARE, MEDICAID, SELFPAY ==
[2021-06-26 22:39] VITALS: BP 158/100; PULSE 124; RESP 16; TEMP 36.1; O2SAT 98; BMI 51.9
--- NOTE | 2021-06-26 22:54 | EDS_ITS ---
HPI HPI - Female History of Present Illness Chief Complaint: Vag Bleeding Informant: patient Pain Pain: Positive for Pelvic Pain Onset: Yesterday Context: Gradual Onset Timing: Intermittent Quality: Positive for Cramping Location: Suprapubic Worsened by: Movement Bleeding Issue: Positive for Vaginal bleeding and Passing clots Onset: Yesterday Context: Gradual Onset Timing: Continuous Current Severity: Heavy Current pads/hr: 3 Maximum Severity: Heavy Vaginal Discharge Onset: Yesterday Associated Symptoms Associated Symptoms: Negative for Dysuria and Frequency Narrative Narrative: Patient presents with vaginal bleeding and vaginal discharge that began yesterday. Patient states that she noted some brown vaginal discharge yesterday. Patient states that today her bleeding became heavier. Patient states she has been passing some clots. Patient states that at times her bleeding is heavy enough to go through 3-4 pads per hour. Patient states that in the past she had been on the Depo-Provera shot but has not followed up with an WOOD ROOM SUPERVISOR in several months. Patient states her last normal menstrual period was approximately 5 years ago. Patient denies any dysuria or urinary frequency. PFSH PFS Medical History Bipolar disorder HTN (hypertension) Home Medications Lacto.acidophilus-Bif.animalis [Daily Probiotic] 1 cap PO DAILY 06/26/21 [History Last Taken Unknown] norethindrone acetate [Aygestin] 5 mg PO DAILY #7 tab 06/27/21 [Rx Last Taken Unknown] Allergy/AdvReac Type Severity Reaction Status Date / Time adhesive tape Allergy Rash Verified 06/26/21 22:40 mirtazapine [From Remeron] AdvReac Intermediate EXTREME Verified 06/26/21 22:40 MOOD SWINGS Surgical History History of lung surgery Hx of cholecystectomy Social History Smoking Status: Current every day smoker tobacco type: cigarettes substance use type: marijuana ROS ROS ED Constitutional Constitutional ED: Denies chills or fever(s) Eyes Eyes: Denies blurry vision or change in vision ENT ENT ED: Denies rhinorrhea or sore throat Cardiovascular Cardiovascular: Denies chest pain or palpitations Respiratory/Chest Respiratory/Chest: Denies cough or dyspnea Gastrointestinal Gastrointestinal: Reports nausea and vomiting Genitourinary Genitourinary ED: Denies dysuria or hematuria Musculoskeletal Musculoskeletal: Denies back pain or neck pain Integumentary Denies abscess or rash Neurologic Neurologic: Denies headache(s) or weakness Allergic/Immunologic Allergic/Immunologic ED: Denies mouth swelling or urticaria EXAM Physical Exam Const Vital Signs: 06/26/21 22:39 06/26/21 22:56 Temperature 96.9 F L Temperature Source Temporal Pulse Rate 124 H Pulse Rate [Lying] 98 Pulse Rate [Sitting] 106 H Pulse Rate [Standing] 121 H Respiratory Rate 16 Blood Pressure 158/100 H Blood Pressure [Lying] 114/81 H Blood Pressure [Sitting] 140/96 H Blood Pressure [Standing] 130/93 H Blood Pressure Mean 119 Blood Pressure Mean [Lying] 92 Blood Pressure Mean [Sitting] 110 Blood Pressure Mean [Standing] 105 Pulse Ox 98 Oxygen Delivery Method Room Air Positive well nourished and well developed General Appearance ED: well developed HEENT Reports moist mucous membranes Neck supple and no JVD Resp normal respiratory effort and clear to auscultation bilaterally Cardio regular rate, regular rhythm and no murmurs GI normal to inspection, nondistended, normoactive bowel sounds and non-tender Palpation: soft Extremity normal to inspection General Extremety ED: Negative for edema or tenderness General Extremity: Negative for edema Neuro oriented x3, CN's II-XII intact bilaterally and no sensory deficits noted Sensorium / Orientation: alert Motor Exam: strength 5/5 throughout Psych mental status grossly normal Skin no rashes or lesions noted MDM MDM MDM Narrative Medical decision making narrative: Patient was given IV fluids. CBC was within normal limits. Comprehensive metabolic profile was normal. Urinalysis showed occult blood of 250 with greater than 100 red blood cells. There were 0-5 white blood cells. Serum hCG was negative. Patient was advised of her findings. Patient was given a prescription for a short course of Aygestin. Patient was instructed to follow-up with her WOOD ROOM SUPERVISOR in 3 to 5 days. Patient understood and was agreeable with the plan. All questions were answered. Lab Data Attestation: I reviewed the patient's lab results. Labs: Laboratory Results - last 24 hr 06/26/21 06/26/21 06/26/21 22:50 23:15 23:15 WBC 9.5 RBC 5.09 Hgb 14.6 Hct 43.6 MCV 85.7 MCH 28.7 MCHC 33.5 RDW Std Deviation 43.6 RDW Coeff of Jeri 14.0 Plt Count 294 MPV 10.3 Immature Gran % (Auto) 0.700 Neut % (Auto) 56.5 Lymph % (Auto) 31.1 [place] % (Auto) 8.2 Eos % (Auto) 2.8 Baso % (Auto) 0.7 Absolute Neuts (auto) 5.4 Absolute Lymphs (auto) 2.97 Nucleated RBC % 0 Sodium 138 Potassium 4.1 Chloride 104 Carbon Dioxide 28.0 Anion Gap 6 BUN 4 L Creatinine 0.86 Estim Creat Clear Calc 96.85 Est GFR (MDRD) Af Amer 95 Est GFR (MDRD) Non-Af 78 BUN/Creatinine Ratio 4.6 L Glucose 108 H Calcium 8.9 Total Bilirubin 0.80 AST 51 H ALT 46 Alkaline Phosphatase 73 Total Protein 7.4 Albumin 3.5 Globulin 3.9 Albumin/Globulin Ratio 0.9 Serum , Qual Urine Color Red Urine Clarity Cloudy Urine pH 5.0 Ur Specific [place] 1.015 Urine Protein 100 H Urine Glucose (UA) Normal Urine Ketones 5 H Urine Occult Blood 250 H Urine Nitrite Negative Urine Bilirubin Negative Urine Urobilinogen Normal Ur Leukocyte Esterase 100 H Urine RBC > 100 SEEN Urine WBC 0-5 SEEN Ur Squamous Epith Cells 0-5 SEEN Urine Bacteria 1+ Urine Mucus RARE 06/26/21 23:15 WBC RBC Hgb Hct MCV MCH MCHC RDW Std Deviation RDW Coeff of Jeri Plt Count MPV Immature Gran % (Auto) Neut % (Auto) Lymph % (Auto) [place] % (Auto) Eos % (Auto) Baso % (Auto) Absolute Neuts (auto) Absolute Lymphs (auto) Nucleated RBC % Sodium Potassium Chloride Carbon Dioxide Anion Gap BUN Creatinine Estim Creat Clear Calc Est GFR (MDRD) Af Amer Est GFR (MDRD) Non-Af BUN/Creatinine Ratio Glucose Calcium Total Bilirubin AST ALT Alkaline Phosphatase Total Protein Albumin Globulin Albumin/Globulin Ratio Serum , Qual NEGATIVE Urine Color Urine Clarity Urine pH Ur Specific [place] Urine Protein Urine Glucose (UA) Urine Ketones Urine Occult Blood Urine Nitrite Urine Bilirubin Urine Urobilinogen Ur Leukocyte Esterase Urine RBC Urine WBC Ur Squamous Epith Cells Urine Bacteria Urine Mucus Discharge Plan Triage Chief Complaint: Vag Bleeding ED Provider: Parviz Condon Dx/Rx/DC Orders Clinical Impression: Abnormal vaginal bleeding Instructions: ED Dysfunctional Uterine Bleeding Prescriptions: New norethindrone acetate [Aygestin] 5 mg tablet 5 mg PO DAILY Qty: 7 RF: 0 No Action Daily Probiotic 2.5 billion cell Capsule 1 cap PO DAILY RF: 0 Primary Care Provider: Winston Ruiz Referrals: Winston Ruiz, [Primary Care Provider] - 3-5 Days Salena Solis MD [STAFF PHYSICIAN] - 3-5 Days Disposition Disposition: Home, Self Care
[2021-06-26 22:56] VITALS: BP 114/81; BP 130/93; BP 140/96; PULSE 106; PULSE 121; PULSE 98
[2021-06-26 23:06] LABS: Color, Urine Red (Yellow); Glucose, Dipstick Normal (Normal); Ketone-Dipstick 5 mg/dl (Negative); Leukocyte Esterase-Dipstick 100 /ul (Negative); Nitrite-Dipstick Negative (Negative); Occult Blood-Urine 250 /ul (Negative); Protein-Dipstick 100 mg/dl (Negative); Specific Gravity, Urine 1.015 (1.002-1.030); Urine Bilirubin Dipstick Negative (Negative); Urine Clarity Cloudy (Clear); Urine Urobilinogen Normal (Normal)
[2021-06-26 23:36] LABS: Bacteria 1+ /hpf (None Seen); Red Blood Cells-Urine > 100 SEEN /hpf (0-5); Squamous Epithelial Cells - UA 0-5 SEEN /hpf (5-10); White Blood Cells 0-5 SEEN /hpf (0-5)
[2021-06-26 23:37] LABS: Mucous, Urine RARE /hpf (<or=2+)
[2021-06-26 23:48] LABS: Absolute Lymphocyte Count 2.97 X10^3/uL (0.83-4.51); Absolute Neutrophil Count 5.4 X10^3/uL (2.0-7.7); Basophil# 0.07 X10^3/uL; Basophil% 0.7 % (0-1); Eosinophil# 0.27 X10^3/uL; Eosinophils% 2.8 % (0-5); Hematocrit 43.6 % (37-47); Hemoglobin 14.6 g/dL (12.0-15.0); Lymphocyte # 2.97 X10^3/ul (0.83-4.51); Lymphocyte % 31.1 % (19-41); Mean Corp Hgb Conc 33.5 g/dL (32-36); Mean Corpuscular Hgb 28.7 pg (27.0-32.0); Mean Corpuscular Volume 85.7 fL (81-99); Mean Platelet Vol. 10.3 fl (6.2-12.0); Monocyte# 0.78 X10^3/uL; Monocyte% 8.2 % (0-10); NRBC Flagged by Analyzer 0 % (0-5); Neutrophil # 5.38 X10^3/uL (2.7-7.7); Neutrophil % 56.5 % (47-70); Platelet Count 294 K/mm3 (150-450); RBC Distribution Width SD 43.6 fl (35.1-43.9); Red Blood Count 5.09 M/mm3 (4.2-5.4); White Blood Count 9.5 K/mm3 (4.4-11.0)
[2021-06-26 23:56] LABS: Internal QC Validated? YES +Cl - CLEAR BKGD; Pregnancy, Serum, hCG Quali. NEGATIVE Negative
[2021-06-27 00:05] LABS: ALB/GLOB Ratio 0.9 RATIO (0.9-2.4); AST(SGOT) 51 U/L (15-37); Alanine Aminotransfer ALT/SGPT 46 U/L (13-56); Albumin, Serum 3.5 g/dL (3.2-5.0); Alkaline Phosphatase 73 U/L (45-117); Anion Gap 6 (5-15); BUN 4 mg/dL (7-18); BUN/Creat Ratio 4.6 RATIO (10-20); Calcium,Total 8.9 mg/dL (8.5-10.1); Chloride 104 mmol/L (98-107); Creatinine, Serum 0.86 mg/dL (0.55-1.02); EST Glomerular Filtration Rate 78 mL/min (>60); Est Glom Filt Rate - Afr Amer 95 mL/min (>60); Estimated Creatinine Clearance 96.85 ml/min; Globulin 3.9 g/dL (2.2-4.2); Glucose 108 mg/dL (74-106); Potassium 4.1 mmol/L (3.5-5.1); Protein, Total 7.4 g/dL (6.4-8.2); Sodium Level 138 mmol/L (136-145)
[2021-06-27] MEDS: 0.9% Normal Saline 1,000 ML 1000 ML IV (00:14)
[2021-06-27 02:04] VITALS: BP 128/68; PULSE 85; RESP 18; O2SAT 99
== END 2021-06-27 02:05 | disposition home or self-care (01) ==
PROVIDERS: Emergency Provider Emergency Medicine; PCP Student in an Organized Health Care Education/Training Program
DX: N93.9 Abnormal uterine and vaginal bleeding, unspecified (principal); F17.210 Nicotine dependence, cigarettes, uncomplicated
CPT/HCPCS: 80053; 81001; 84703; 85025; 96360; 96361; 99285; J7030; A4216

== ENCOUNTER 2021-10-27 17:23 | Emergency (ER) | payer MEDICARE, MEDICAID, SELFPAY ==
[2021-10-27 17:24] VITALS: BP 150/79; PULSE 93; RESP 16; TEMP 36.2; BMI 44.4
--- NOTE | 2021-10-27 17:42 | EKG12_ITS ---
Test Reason : CP Blood Pressure : / mmHG Vent. Rate : 081 BPM Atrial Rate : 081 BPM P-R Int : 156 ms QRS Dur : 102 ms QT Int : 374 ms P-R-T Axes : 045 007 010 degrees QTc Int : 434 ms Normal sinus rhythm Normal ECG Confirmed by CARLINE MELENDEZ, AUDRA ([id number]), film editor supervisor CODY LLANOS ([id number]) on 10/28/2021 10:30:49 AM Referred By: DUKE/TIM Confirmed By:AUDRA CROWLEY MD
--- NOTE | 2021-10-27 17:44 | EDS_ITS ---
HPI History of Present Illness Chief Complaint: Chest Pain Narrative Narrative: 36-year-old female presenting with abdominal pain and cramping for 1 year. She states she seen her primary care and a GI doctor. She has had upper and lower endoscopy. She was tested for H. pylori twice. She states that nobody has found a cause. She reports an unintentional 100 pound weight loss over the last year. She has chronic nausea and diarrhea. No urinary complaints. No vaginal complaints. She has not had a fever. Patient states that she has had some intermittent chest pain for the last 4 days. She states that it is like clockwork and happens every 30 minutes. She states she has a hi story of GERD and thinks it may be this. Its not sharp or pleuritic in nature. She does state that it is burning. She states she tries to eat healthy but does drink a lot of pop. Cough or shortness of breath. [facility] Medical History Bipolar disorder HTN (hypertension) Home Medications Lacto.acidophilus-Bif.animalis [Daily Probiotic] 1 cap PO DAILY 06/26/21 [History Last Taken Unknown] norethindrone acetate [Aygestin] 5 mg PO DAILY #7 tab 06/27/21 [Rx Last Taken Unknown] Allergy/AdvReac Type Severity Reaction Status Date / Time adhesive tape Allergy Rash Verified 10/27/21 17:24 mirtazapine [From Remeron] AdvReac Intermediate EXTREME Verified 10/27/21 17:24 MOOD SWINGS Surgical History History of lung surgery Hx of cholecystectomy Social History Smoking Status: Current every day smoker tobacco type: cigarettes substance use type: marijuana ROS ROS ED Constitutional Constitutional ED: Denies chills or fever(s) Eyes Eyes: Denies blurry vision or change in vision ENT ENT ED: Denies rhinorrhea or sore throat Cardiovascular Cardiovascular: Reports as per HPI Respiratory/Chest Respiratory/Chest: Denies cough or dyspnea Gastrointestinal Gastrointestinal: Reports abdominal pain, diarrhea and nausea Genitourinary Genitourinary ED: Denies dysuria or hematuria Musculoskeletal Musculoskeletal: Denies arthralgias or myalgias Integumentary Denies rash Neurologic Neurologic: Denies headache(s) or paresthesias Psychiatric Psychiatric: Denies anxiety or depression EXAM Physical Exam Const Vital Signs: 10/27/21 17:24 10/27/21 17:59 Temperature 97.2 F L Temperature Source Temporal Pulse Rate 93 72 Respiratory Rate 16 20 H Blood Pressure 150/79 H 107/52 L Blood Pressure Mean 102 70 Pulse Ox 99 Oxygen Delivery Method Room Air Positive obese General Appearance ED: NAD; Negative for pallor Nutritional Appearance: obese HEENT Reports moist mucous membranes normocephalic and atraumatic Eyes PERRL and EOMs intact bilaterally General Eye ED: Negative for pale conjunctiva or scleral icterus Cardio regular rate and regular rhythm GI soft to palpation and non-distended; Negative for hepatosplenomegaly GI Narrative: Patient reports diffuse tenderness on exam. Neuro oriented x3 Sensorium / Orientation: awake and alert Psych mental status grossly normal Skin no rashes or lesions noted and no wounds General Skin Exam: Negative for jaundice or pallor Heart Score History: Slightly/Non-Suspicious ECG: Normal Age: </= 45 years Risk Factors: 1 or 2 Risk Factors Troponin: </= Normal Limit Score: 1 MDM MDM MDM Narrative Medical decision making narrative: Patient presenting with 1 year of diarrhea and abdominal cramping. She is seen by GI, general surgery. She is at upper and lower endoscopies. She states that she wants to find the answer behind this problem. She reports 100 pound weight loss which is unintentional. Patient's EKG is sinus rhythm with a ventricular rate of 81 bpm without sign of ischemic change or dysrhythmia. Chest x-ray on my interpretation shows no acute cardiopulmonary process and radiologist agree. CBC, CMP unremarkable with exception of potassium 3.2. High-sensitivity troponin is less than 3. Lipase negative. CT of the abdomen pelvis with IV contrast shows no abnormalities but does show fatty liver. Patient counseled on findings. I do not believe her chest pain is cardiac in nature. The patient herself does not believe this either and she states she does not want to stay for a delta troponin. I think that this is reasonable. I have clinically very little suspicion for PE and therefore I did not work her up for this. Patient with a long-term chronic abdominal issue with GI follow-up and surgical follow-up I think is appropriate for discharge. Impression: 1. Chest pain noncardiac 2. Abdominal pain 3. Diarrhea 4. Fatty liver Lab Data Attestation: I reviewed the patient's lab results. Labs: Laboratory Results - last 24 hr 10/27/21 10/27/21 10/27/21 17:55 17:55 19:55 WBC 8.8 RBC 5.57 H Hgb 14.4 Hct 43.0 MCV 77.2 L MCH 25.9 L MCHC 33.5 RDW Std Deviation 42.0 RDW Coeff of Jeri 15.1 H Plt Count 370 MPV 11.0 Immature Gran % (Auto) 0.200 Neut % (Auto) 56.8 Lymph % (Auto) 30.9 [place] % (Auto) 9.1 Eos % (Auto) 2.4 Baso % (Auto) 0.6 Absolute Neuts (auto) 5.0 Absolute Lymphs (auto) 2.71 Nucleated RBC % 0 Sodium 140 Potassium 3.2 L Chloride 104 Carbon Dioxide 29.0 Anion Gap 7 BUN 4 L Creatinine 0.96 Estim Creat Clear Calc 86.76 Est GFR (MDRD) Af Amer 84 Est GFR (MDRD) Non-Af 70 BUN/Creatinine Ratio 4.2 L Glucose 89 Calcium 9.1 Total Bilirubin 0.60 Direct Bilirubin 0.15 AST 14 L ALT 21 Alkaline Phosphatase 55 Troponin I High Sens < 3 L Cancelled Total Protein 7.1 Albumin 3.6 Globulin 3.5 Lipase 105 Radiography Diagnostic Testing: Clinical Impression(s) from Imaging Studies Abdomen/Pelvis CT 10/27/21 18:20 IMPRESSION: Fatty liver, no discrete lesion No free intraperitoneal fluid, air, or suspicious adenopathy, normal appendix visualized Electronically Signed: Jerry Chavez MD at 18:47 EDT Reading Location ID and State: [facility] / [place] , Service support , Chest X-Ray 10/27/21 18:25 IMPRESSION: Normal x-ray examination of the chest. Electronically Signed: Jerry Chavez MD at 18:40 EDT , Discharge Plan Triage Chief Complaint: Chest Pain ED Provider: Miguel Voss Dx/Rx/DC Orders Instructions: ED Abdominal Pain Unkn Cause Fem, ED Chest Pain, Noncardiac Prescriptions: No Action Daily Probiotic 2.5 billion cell Capsule 1 cap PO DAILY RF: 0 norethindrone acetate [Aygestin] 5 mg tablet 5 mg PO DAILY Qty: 7 RF: 0 Primary Care Provider: Winston Ruiz Referrals: Winston Ruiz DO [Primary Care Provider] - Disposition Disposition: Home, Self Care
[2021-10-27 17:59] VITALS: BP 107/52; PULSE 72; RESP 20; O2SAT 99
[2021-10-27 18:07] LABS: Absolute Lymphocyte Count 2.71 X10^3/uL (0.83-4.51); Basophil# 0.05 X10^3/uL; Basophil% 0.6 % (0-1); Eosinophil# 0.21 X10^3/uL; Eosinophils% 2.4 % (0-5); Hemoglobin 14.4 g/dL (12.0-15.0); Lymphocyte # 2.71 X10^3/ul (0.83-4.51); Lymphocyte % 30.9 % (19-41); Mean Corp Hgb Conc 33.5 g/dL (32-36); Mean Corpuscular Hgb 25.9 pg (27.0-32.0); Mean Corpuscular Volume 77.2 fL (81-99); Monocyte% 9.1 % (0-10); NRBC Flagged by Analyzer 0 % (0-5); Neutrophil # 4.98 X10^3/uL (2.7-7.7); Neutrophil % 56.8 % (47-70); Platelet Count 370 K/mm3 (150-450); RBC Distribution Width CV 15.1 % (11.6-14.6); Red Blood Count 5.57 M/mm3 (4.2-5.4); White Blood Count 8.8 K/mm3 (4.4-11.0)
--- NOTE | 2021-10-27 18:20 | CT_ITS ---
STUDY: CT ABDOMEN AND PELVIS WITH CONTRAST REASON FOR EXAM: Female, 36 years old. Diffuse abdominal pain RADIATION DOSAGE (If Supplied By Facility): CTDIvol = ( 25.38 ) mGy, DLP = ( 1387.36 ) mGycm TECHNIQUE: Transaxial images were obtained from the dome of the diaphragm to the symphysis pubis without oral contrast. IV 100mL Isovue-370 was administered. Sagittal and coronal images were reconstructed. Individualized dose optimization techniques were used for this CT. COMPARISON: None. FINDINGS: The visualized lung bases are unremarkable. The visualized portions of the heart are within normal limits. There is decreased attenuation of the liver consistent with steatosis, there is focal fatty sparing along the falciform ligament. There is non-visualization of the gallbladder, which may be secondary to either contraction or a prior cholecystectomy. Normal spleen. Normal pancreas. Normal bilateral adrenal glands. Normal right kidney. Normal left kidney. Normal visualized stomach. Normal small intestine. Normal colon. The appendix is visualized and appears normal. Appendix seen on coronal recon images 75 through 78 Normal abdominal aorta. Normal inferior vena cava. Normal retroperitoneum. Normal urinary bladder. Normal visualized uterus. No suspicious cystic mass or free fluid. Normal abdominal wall. Normal osseous structures. CT/Abdomen/Pelvis W IV Cont ONLY IMPRESSION: Fatty liver, no discrete lesion No free intraperitoneal fluid, air, or suspicious adenopathy, normal appendix visualized Electronically Signed: Jerry Chavez MD at 18:47 EDT ,
--- NOTE | 2021-10-27 18:25 | RAD_ITS ---
STUDY: X-RAY CHEST REASON FOR EXAM: Female, 36 years old. Chest pain TECHNIQUE: Single AP portable view of the chest. COMPARISON: 11/04/2020 FINDINGS: EKG leads overlie the chest The lungs are clear and expanded. There is no demonstrated pleural abnormality. Normal size heart. Normal mediastinum and sharlene. Normal visualized pulmonary arteries. Normal visualized aortic arch and descending thoracic aorta. Normal visualized thoracic spine. Normal visualized ribs, clavicles, and shoulders. There is no demonstrated abnormality of the visualized soft tissue structures of the upper abdomen. RAD/Chest 1 View (Portable) IMPRESSION: Normal x-ray examination of the chest. Electronically Signed: Jerry Chavez MD at 18:40 EDT ,
[2021-10-27 18:32] LABS: AST(SGOT) 14 U/L (15-37); Alanine Aminotransfer ALT/SGPT 21 U/L (13-56); Albumin, Serum 3.6 g/dL (3.2-5.0); Alkaline Phosphatase 55 U/L (45-117); Anion Gap 7 (5-15); BUN 4 mg/dL (7-18); BUN/Creat Ratio 4.2 RATIO (10-20); Bilirubin, Direct 0.15 mg/dL (0.00-0.30); Calcium,Total 9.1 mg/dL (8.5-10.1); Chloride 104 mmol/L (98-107); Creatinine, Serum 0.96 mg/dL (0.55-1.02); EST Glomerular Filtration Rate 70 mL/min (>60); Est Glom Filt Rate - Afr Amer 84 mL/min (>60); Estimated Creatinine Clearance 86.76 ml/min; Globulin 3.5 g/dL (2.2-4.2); Glucose 89 mg/dL (74-106); Lipase 105 U/L (73-393); Potassium 3.2 mmol/L (3.5-5.1); Protein, Total 7.1 g/dL (6.4-8.2); Sodium Level 140 mmol/L (136-145); Troponin-I HS < 3 pg/mL (3.0-54.0)
[2021-10-27 20:27] VITALS: BP 105/52; PULSE 74; RESP 16
== END 2021-10-27 20:28 | disposition home or self-care (01) ==
PROVIDERS: Emergency Provider Student in an Organized Health Care Education/Training Program; PCP Student in an Organized Health Care Education/Training Program; Visit Provider Student in an Organized Health Care Education/Training Program
DX: R07.89 Other chest pain (principal); Z68.41 Body mass index [BMI] 40.0-44.9, adult; K76.0 Fatty (change of) liver, not elsewhere classified; K52.9 Noninfective gastroenteritis and colitis, unspecified; E66.9 Obesity, unspecified
CPT/HCPCS: 71045; 74177; 80048; 80076; 83690; 84484; 85025; 93005; 99284; Q9967; A4216

== ENCOUNTER 2022-01-01 04:43 | Emergency (ER) | payer MEDICARE, MEDICAID, SELFPAY ==
[2022-01-01 04:45] VITALS: BP 149/112; PULSE 121; RESP 18; TEMP 37; O2SAT 94; BMI 40.6
--- NOTE | 2022-01-01 05:31 | RAD_ITS ---
STUDY: X-RAY - ACUTE ABDOMINAL SERIES REASON FOR EXAM: Female, 36 years old patient with abdominal pain. TECHNIQUE: Single view of the chest. Supine, and erect view(s) of the abdomen were obtained. COMPARISON: Chest radiograph dated 10/27/2021 and radiograph of the abdomen dated 04/30/2018. FINDINGS: The lungs are clear and expanded. Normal size heart. Normal mediastinum and sharlene. There is prominence of the pulmonary hilar arteries without peripheral pulmonary vascular congestion. Normal visualized aortic arch and descending thoracic aorta. There is minimal stool visible. There are multiple air-fluid levels visible within the small bowel and colon. Appearance suggests possible sequela of acute infectious or inflammatory enteritis. There is no obvious organomegaly or mass. No pathologic calcifications are visualized. Normal visualized osseous structures. RAD/Acute Abdomen Inc Chest IMPRESSION: 1. No evidence of acute cardiopulmonary disease. 2. Findings suggest possible acute infectious or inflammatory enteritis. Electronically Signed: Josee Patterson MD at 6:40 EDT ,
[2022-01-01] MEDS: 0.9% Normal Saline 1,000 ML 999 ML IV (05:45)
[2022-01-01 05:46] LABS: Absolute Lymphocyte Count 3.29 X10^3/uL (0.83-4.51); Absolute Neutrophil Count 4.8 X10^3/uL (2.0-7.7); Basophil# 0.07 X10^3/uL; Basophil% 0.8 % (0-1); Eosinophil# 0.24 X10^3/uL; Eosinophils% 2.6 % (0-5); Hematocrit 43.5 % (37-47); Hemoglobin 14.7 g/dL (12.0-15.0); Lymphocyte # 3.29 X10^3/ul (0.83-4.51); Lymphocyte % 35.8 % (19-41); Mean Corp Hgb Conc 33.8 g/dL (32-36); Mean Corpuscular Hgb 27.1 pg (27.0-32.0); Mean Corpuscular Volume 80.3 fL (81-99); Mean Platelet Vol. 10.2 fl (6.2-12.0); Monocyte# 0.79 X10^3/uL; Monocyte% 8.6 % (0-10); NRBC Flagged by Analyzer 0 % (0-5); Neutrophil # 4.77 X10^3/uL (2.7-7.7); Platelet Count 406 K/mm3 (150-450); RBC Distribution Width CV 15.9 % (11.6-14.6); Red Blood Count 5.42 M/mm3 (4.2-5.4); White Blood Count 9.2 K/mm3 (4.4-11.0)
[2022-01-01 05:52] LABS: Mucous, Urine 0 SEEN /hpf (<or=2+)
[2022-01-01 06:07] LABS: AST(SGOT) 23 U/L (15-37); Alanine Aminotransfer ALT/SGPT 21 U/L (13-56); Alkaline Phosphatase 65 U/L (45-117); Anion Gap 8 (5-15); BUN 5 mg/dL (7-18); BUN/Creat Ratio 5.5 RATIO (10-20); Bilirubin, Direct 0.19 mg/dL (0.00-0.30); Calcium,Total 9.2 mg/dL (8.5-10.1); Chloride 103 mmol/L (98-107); Creatinine, Serum 0.91 mg/dL (0.55-1.02); EST Glomerular Filtration Rate 74 mL/min (>60); Est Glom Filt Rate - Afr Amer 89 mL/min (>60); Estimated Creatinine Clearance 91.53 ml/min; Globulin 3.6 g/dL (2.2-4.2); Glucose 108 mg/dL (74-106); Lipase 63 U/L (73-393); Magnesium 2.7 mg/dL (1.6-2.6); Potassium 2.6 mmol/L (3.5-5.1); Protein, Total 7.6 g/dL (6.4-8.2); Sodium Level 139 mmol/L (136-145)
[2022-01-01 06:16] LABS: Color, Urine Yellow (Yellow); Glucose, Dipstick Normal (Normal); Ketone-Dipstick Negative (Negative); Leukocyte Esterase-Dipstick 25 /ul (Negative); Nitrite-Dipstick Negative (Negative); Occult Blood-Urine 50 /ul (Negative); Protein-Dipstick 30 mg/dl (Negative); Specific Gravity, Urine 1.015 (1.002-1.030); Urine Bilirubin Dipstick Negative (Negative); Urine Clarity Sl. Cloudy (Clear); Urine Urobilinogen Normal (Normal)
[2022-01-01 06:20] LABS: Internal QC Validated? YES +Cl - CLEAR BKGD; Pregnancy, Urine Negative Negative
[2022-01-01 06:22] LABS: Squamous Epithelial Cells - UA 0-5 SEEN /hpf (5-10); White Blood Cells 5-10 SEEN /hpf (0-5)
[2022-01-01 06:23] LABS: Bacteria 2+ /hpf (None Seen); Red Blood Cells-Urine 0-5 SEEN /hpf (0-5)
[2022-01-01] MEDS: Ceftriaxone 1 GM/50 ML BAG IV (06:42)
--- NOTE | 2022-01-01 06:57 | ED.RN ---
0635 Pt ,made aware that her potassium is low and she is getting potassium. pt also made aware that she has a uti.pt became angry and said that she could not swallow that pill because it is toofucking big offerred to split the pill in half and she became more irrate.pt stated that she is having pain and what the fuck are you doing for my abdominal pain. i have burning between my anus and front. Pt made aware that a UTI can cause burning and abdominal pain. Pt then got on the phone and was complaining to some one on the phone and being verbally abusive about her care. made aware that the pt also wanted to take her Ativan that she has in her purse. Made dr Jiménez aware of her believing that she is not being cared for and her pain is not being addressed.
--- NOTE | 2022-01-01 07:04 | EDS_ITS ---
HPI History of Present Illness Chief Complaint: Constipation Narrative Narrative: Patient is a 36-year-old female who states that she has had abdominal issues for years. She reports she seen her doctor multiple times as well as multiple specialists with no obvious answer. She states that she has been having intermittent rectal pain and constipation and that the no one can give her an answer for. She states she contacted her doctor because of these persistent symptoms and she was advised to go to the hospital for further evaluation and secondary to this presents at this time. [facility] Medical History Bipolar disorder HTN (hypertension) Home Medications Lacto.acidophilus-Bif.animalis [Daily Probiotic] 1 cap PO DAILY 06/26/21 [History Last Taken Unknown] norethindrone acetate [Aygestin] 5 mg PO DAILY #7 tab 06/27/21 [Rx Last Taken Unknown] cephalexin 500 mg PO BID 7 Days #140 ml 01/01/22 [Rx Last Taken Unknown] methocarbamol 1,000 mg PO TID PRN #30 tab 01/01/22 [Rx Last Taken Unknown] potassium chloride 20 meq PO DAILY 10 Days #150 ml 01/01/22 [Rx Last Taken Unknown] Allergy/AdvReac Type Severity Reaction Status Date / Time adhesive tape Allergy Rash Verified 01/01/22 04:44 mirtazapine [From Remeron] AdvReac Intermediate EXTREME Verified 01/01/22 04:44 MOOD SWINGS Surgical History History of lung surgery Hx of cholecystectomy Social History Smoking Status: Current every day smoker tobacco type: cigarettes substance use type: marijuana ROS ROS ED Constitutional Constitutional ED: Denies chills or fever(s) ENT ENT ED: Denies sore throat Cardiovascular Cardiovascular: Denies chest pain Respiratory/Chest Respiratory/Chest: Denies cough or dyspnea Gastrointestinal Gastrointestinal: Reports abdominal pain, constipation and nausea; Denies diarrhea or vomiting Genitourinary Genitourinary ED: Denies dysuria Musculoskeletal Musculoskeletal: Denies back pain or myalgias Integumentary Denies rash Neurologic Neurologic: Denies headache(s) Psychiatric Psychiatric: Reports anxiety Hematologic/Lymphatic Hematologic/Lymphatic: Denies easy bleeding or easy bruising EXAM Physical Exam Const Vital Signs: 01/01/22 04:45 Temperature 98.6 F Temperature Source Temporal Pulse Rate 121 H Respiratory Rate 18 Blood Pressure 149/112 H Blood Pressure Mean 124 Pulse Ox 94 Oxygen Delivery Method Room Air Positive well nourished, well developed and obese General Appearance ED: well developed Nutritional Appearance: obese HEENT Reports moist mucous membranes Eyes PERRL and EOMs intact bilaterally Neck supple Resp normal respiratory effort and clear to auscultation bilaterally Cardio regular rate and regular rhythm GI non-tender and non-distended GI Narrative: Abdomen is obese soft nontender nondistended with hypoactive bowel sounds. No voluntary guarding or rigidity. No pulsatile mass or fluid wave. No increased tympany Palpation: soft Narrative: Rectal exam shows a singular nonthrombosed nonbleeding hemorrhoid. Rectal tone is normal there is no retained stool in the rectal vault. No masses palpated. Extremity normal to inspection Neuro oriented x3 and CN's II-XII intact bilaterally Sensorium / Orientation: alert Motor Exam: strength 5/5 throughout Psych Attitude: agitated Mood & Affect: anxious Skin no rashes or lesions noted MDM MDM MDM Narrative Medical decision making narrative: Patient presented to the ER hypertensive and tachycardic but was very nervous/anxious and states that these changes are normal for her. She stated that the symptoms are longstanding but that she is not had a adequate answer about why she is having her symptoms and so she presented for reevaluation. She does not have any obvious signs of blockage on physical exam and did not have risk factors for this so elected to perform acute abdominal series versus CT scan. The x-ray revealed a nonobstructive bowel gas pattern without fecal impaction. Blood work revealed hypokalemia at 2.6 and urinary tract infection but otherwise no leukocytosis or signs of acute kidney injury. The patient's urine was sent for culture and she was started on Rocephin. Potassium was ordered but patient did not want to take the oral pills and refused the IV potassium. Therefore this time as the physical exam and work-up does not reveal signs of obstruction and her infection is not leading to septic changes I do not feel there is need for further work-up and patient can be discharged and follow-up on an outpatient basis Lab Data Attestation: I reviewed the patient's lab results. Labs: Laboratory Results - last 24 hr 01/01/22 01/01/22 01/01/22 05:40 05:40 05:50 WBC 9.2 RBC 5.42 H Hgb 14.7 Hct 43.5 MCV 80.3 L MCH 27.1 MCHC 33.8 RDW Std Deviation 46.0 H RDW Coeff of Jeri 15.9 H Plt Count 406 MPV 10.2 Immature Gran % (Auto) 0.200 Neut % (Auto) 52.0 Lymph % (Auto) 35.8 [place] % (Auto) 8.6 Eos % (Auto) 2.6 Baso % (Auto) 0.8 Absolute Neuts (auto) 4.8 Absolute Lymphs (auto) 3.29 Nucleated RBC % 0 Sodium 139 Potassium 2.6 L* Chloride 103 Carbon Dioxide 28.0 Anion Gap 8 BUN 5 L Creatinine 0.91 Estim Creat Clear Calc 91.53 Est GFR (MDRD) Af Amer 89 Est GFR (MDRD) Non-Af 74 BUN/Creatinine Ratio 5.5 L Glucose 108 H Calcium 9.2 Magnesium 2.7 H Total Bilirubin 0.90 Direct Bilirubin 0.19 AST 23 ALT 21 Alkaline Phosphatase 65 Total Protein 7.6 Albumin 4.0 Globulin 3.6 Lipase 63 L Urine Color Yellow Urine Clarity Sl. Cloudy Urine pH 6.0 Ur Specific [place] 1.015 Urine Protein 30 H Urine Glucose (UA) Normal Urine Ketones Negative Urine Occult Blood 50 H Urine Nitrite Negative Urine Bilirubin Negative Urine Urobilinogen Normal Ur Leukocyte Esterase 25 H Urine RBC 0-5 SEEN Urine WBC 5-10 SEEN Ur Squamous Epith Cells 0-5 SEEN Urine Bacteria 2+ Urine Mucus 0 SEEN Urine Test Negative Radiography Diagnostic Testing: Clinical Impression(s) from Imaging Studies Acute Abdomen Series 01/01/22 05:31 IMPRESSION: 1. No evidence of acute cardiopulmonary disease. 2. Findings suggest possible acute infectious or inflammatory enteritis. Electronically Signed: Josee Patterson MD at 6:40 EDT Reading Location ID and State: [facility] / [place] , Service support , Acute abdominal series with 1 view chest as interpreted by the emergency medicine physician reveals a nonobstructive bowel gas pattern with no acute cardiopulmonary disease in the chest Discharge Plan Triage Chief Complaint: Constipation ED Provider: Les Jiménez Dx/Rx/DC Orders Clinical Impression: Urinary tract infection, Acute hypokalemia, Constipation Instructions: Treating Constipation, Anatomy of the Digestive System, ED Hypokalemia Prescriptions: New potassium chloride 20 mEq/15 mL liquid 20 meq PO DAILY 10 Days Qty: 150 RF: 0 cephalexin 250 mg/5 mL suspension for reconstitution 500 mg PO BID 7 Days Qty: 140 RF: 0 methocarbamol 500 mg tablet 1,000 mg PO TID PRN (Reason: Muscle pain/spasm) Qty: 30 RF: 0 No Action Daily Probiotic 2.5 billion cell Capsule 1 cap PO DAILY RF: 0 norethindrone acetate [Aygestin] 5 mg tablet 5 mg PO DAILY Qty: 7 RF: 0 Primary Care Provider: Winston Ruiz Referrals: Winston Ruiz DO [Primary Care Provider] - Activity Restrictions/Additional Instructions: Please take your medication as directed to improve your potassium value and re solve your UTI. Please talk to your doctor about having your potassium level rechecked when you finish the 10-day course of supplementation and return to the ER should you have any further concerns. Please take 1 capful of MiraLAX daily to help prevent further constipation issue Disposition Disposition: Home, Self Care Discharge Date/Time: 01/01/22 07:47
[2022-01-01 07:43] VITALS: PULSE 100; RESP 16; O2SAT 97
== END 2022-01-01 07:47 | disposition home or self-care (01) ==
PROVIDERS: Emergency Provider Emergency Medicine; PCP Student in an Organized Health Care Education/Training Program; Visit Provider Emergency Medicine
DX: K59.00 Constipation, unspecified (principal); Z68.41 Body mass index [BMI] 40.0-44.9, adult; N39.0 Urinary tract infection, site not specified; E87.6 Hypokalemia; I10 Essential (primary) hypertension; E66.9 Obesity, unspecified; F17.210 Nicotine dependence, cigarettes, uncomplicated; Z79.899 Other long term (current) drug therapy
CPT/HCPCS: 74022; 80048; 80076; 81001; 81025; 83690; 83735; 85025; 87086; 87088; 96365; 99282; A4216

== ENCOUNTER 2022-02-18 12:44 | Emergency (ER) | payer MEDICARE, MEDICAID, SELFPAY ==
[2022-02-18 12:45] VITALS: BP 141/91; PULSE 95; RESP 14; TEMP 36.8; O2SAT 100; BMI 38.4
--- NOTE | 2022-02-18 13:14 | ED.RN ---
PT REQUESTED TO BE PUT ON THE MONITOR BECAUSE SHE NEEDS TO MAKE SURE HER HEART IS OK D/T A YEAR OF VITAMIN AND POTASSIUM DEFICIENCY. PT STATES SYMPTOMS HAVE BEEN GOING ON FOR A YEAR OR LONGER. PT THEN ASKED QUESTIONS ABOUT HER HOME PULSE OX AND ASKED WHAT CERTAIN LINES MEAN. THIS NURSE WAS EXPLAINING THE INFO PT BECAME AGITATED AND ARGUMENTATIVE. AT THIS POINT THIS NURSE STOPPED TALKING AND ALLOWED THE PT TO VENT. PT WAS UNSATISFIED WITH ANY RESPONSE SO NOTHING ELSE WAS SAID EXCEPT THE DR WILL BE IN SHORTLY.
--- NOTE | 2022-02-18 13:37 | EKG12_ITS ---
Test Reason : OTHER PAIN Blood Pressure : / mmHG Vent. Rate : 067 BPM Atrial Rate : 067 BPM P-R Int : 158 ms QRS Dur : 098 ms QT Int : 412 ms P-R-T Axes : 024 013 012 degrees QTc Int : 435 ms Normal sinus rhythm Normal ECG Confirmed by JUAREZ MELENDEZ, JULI ([id number]), manager editorial GUERRERO SANTOS ([id number]) on 02/19/2022 2:19:48 PM Referred By: Confirmed By:JULI PIZARRO MD
--- NOTE | 2022-02-18 13:39 | EDS_ITS ---
HPI History of Present Illness Chief Complaint: Other, Pain/Inj Detail of Chief Complaint: Not feeling well for 1 year Informant: patient Narrative Narrative: Patient presents to the emergency department with multiple complaints. Patient states that she has not been feeling well for over a year. She tells me she is lost about 130 pounds in the last year. Patient also states that she has very little appetite and quickly gets full when she tries to eat. Patient tells me she has vitamin deficiencies of folate and B12 and potassium. Patient states she has been to her primary care physician 100s of times and they can never find a thing wrong with her. Patient tells me she has had diarrhea for a year. She has had a cough for a month or 2. She denies any fevers. She denies urinary symptoms. Patient complains of extreme fatigue. She has had paresthesias in her arms. Prior similar symptoms: Yes PFSH [facility] Medical History Bipolar disorder HTN (hypertension) Home Medications Lactobacillus acidophilus-Bifidobac.animalis 2.5 billion cell capsule (Daily Probiotic) 1 cap PO DAILY 06/26/21 [History Last Taken Unknown] norethindrone acetate 5 mg tablet (Aygestin) 5 mg PO DAILY #7 tabs 06/27/21 [Rx Last Taken Unknown] methocarbamol 500 mg tablet 1,000 mg PO TID PRN Muscle pain/spasm #30 tabs 01/01/22 [Rx Last Taken Unknown] potassium chloride 20 mEq/15 mL oral liquid 20 meq (15 mL) PO DAILY 10 days #150 mL 01/01/22 [Rx Last Taken Unknown] potassium chloride 20 mEq tablet,extended release(part/cryst) 1 tab PO DAILY 02/18/22 [History Last Taken Unknown] sulfamethoxazole 800 mg-trimethoprim 160 mg tablet 1 tab PO BID #6 TABLETS 02/18/22 [Rx Last Taken Unknown] Allergy/AdvReac Type Severity Reaction Status Date / Time adhesive tape Allergy Rash Verified 02/18/22 12:48 mirtazapine [From Remeron] AdvReac Intermediate EXTREME Verified 02/18/22 12:48 MOOD SWINGS Surgical History History of lung surgery Hx of cholecystectomy Social History Smoking Status: Current every day smoker tobacco type: cigarettes substance use type: marijuana ROS ROS ED Review of Systems ROS Unobtainable: other Constitutional Constitutional ED: Reports lethargy; Denies chills, fever(s), sweats or weight loss Eyes Eyes: Denies blurry vision, change in vision or diplopia ENT ENT ED: Denies rhinorrhea or sore throat Cardiovascular Cardiovascular: Reports chest pain and racing heartbeat; Denies orthopnea Respiratory/Chest Respiratory/Chest: Reports cough, dyspnea and dyspnea on exertion; Denies orthopnea or sputum Gastrointestinal Gastrointestinal: Denies abdominal pain, diarrhea, nausea or vomiting Genitourinary Genitourinary ED: Denies dysuria, hematuria or urinary frequency Musculoskeletal Musculoskeletal: Reports myalgias; Denies arthralgias, back pain or neck pain Integumentary Denies abscess, Abrasions or rash Neurologic Neurologic: Reports paresthesias and weakness; Denies headache(s) Psychiatric Psychiatric: Reports anxiety; Denies depression or suicidal thoughts Endocrine Endocrinology: Denies polydipsia, polyphagia or polyuria Hematologic/Lymphatic Hematologic/Lymphatic: Denies easy bleeding, easy bruising or lymphadenopathy Allergic/Immunologic Allergic/Immunologic ED: Denies mouth swelling, tongue swelling or urticaria EXAM Physical Exam Const Vital Signs: 02/18/22 12:45 02/18/22 12:51 02/18/22 14:45 Temperature 98.2 F Temperature Source Temporal Pulse Rate 95 61 Respiratory Rate 14 23 H Respiratory Effort Normal Non-Labored Respiratory Pattern Normal Blood Pressure 141/91 H 130/80 H Blood Pressure Mean 107 96 Pulse Ox 100 98 Oxygen Delivery Method Room Air Positive well nourished and well developed General Appearance ED: well developed and NAD HEENT Reports TM's clear and moist mucous membranes normocephalic and atraumatic; Negative for trauma or tenderness Tympanic Membrane ED: Yes TM's clear Eyes PERRL and EOMs intact bilaterally General Eye ED: Negative for pale conjunctiva or scleral icterus Neck no lymphadenopathy, supple and no JVD General: Negative for tenderness Chest Wall inspection of chest normal and palpation of chest normal Chest: Negative for tenderness Resp normal respiratory effort and clear to auscultation bilaterally Effort and Inspection: Negative for respiratory distress or pain with movement Auscultation: Negative for rhonchi, wheezes or diminished lung sounds Cardio regular rate, regular rhythm, S1 normal heart sound, S2 normal heart sound and no murmurs Peripheral Pulses: pulses 2+ throughout GI normal to inspection, nondistended, normoactive bowel sounds, soft to palpation, non-tender, non-distended and no masses Back/Spine no CVA tenderness and no thoracic nor lumbar tenderness Extremity normal to inspection General Extremety ED: Negative for edema General Extremity: Negative for edema Neuro oriented x3, CN's II-XII intact bilaterally, no sensory deficits noted and gait normal Sensorium / Orientation: awake, alert, oriented to person, oriented to place and oriented to time Motor Exam: strength 5/5 throughout and strength abnormal Psych mental status grossly normal Skin no rashes or lesions noted and no wounds MDM MDM MDM Narrative Medical decision making narrative: Established on arrival. Lab work-up was unremarkable other than a slightly depressed potassium at 3.2 for which I did give her 40 mEq of potassium chloride p.o. Urinalysis did show 25-50 RBCs and 10-25 WBCs as well as +2 bacteria therefore urine culture was sent. Patient will be started on Bactrim for 3 days. Etiology of patient's symptoms unclear and she is seeing her primary care physician as well as GI and general surgeon and no etiology for symptomatology has been found. This point I do not see any acute or emergent disease process. Patient will be discharged home with a prescription for Bactrim and advised to return if condition should worsen anyway. Lab Data Attestation: I reviewed the patient's lab results. Labs: Laboratory Results - last 24 hr 02/18/22 02/18/22 02/18/22 13:51 14:00 14:00 WBC 8.1 RBC 5.24 Hgb 14.3 Hct 43.6 MCV 83.2 MCH 27.3 MCHC 32.8 RDW Std Deviation 41.4 RDW Coeff of Jeri 13.6 Plt Count 357 MPV 10.7 Immature Gran % (Auto) 0.200 Neut % (Auto) 55.7 Lymph % (Auto) 34.2 [place] % (Auto) 7.1 Eos % (Auto) 2.2 Baso % (Auto) 0.6 Absolute Neuts (auto) 4.5 Absolute Lymphs (auto) 2.78 Nucleated RBC % 0 Sodium 139 Potassium 3.2 L Chloride 104 Carbon Dioxide 30.0 Anion Gap 5 BUN 5 L Creatinine 0.92 Estim Creat Clear Calc 90.54 Est GFR (MDRD) Af Amer 89 Est GFR (MDRD) Non-Af 73 BUN/Creatinine Ratio 5.5 L Glucose 93 Calcium 9.2 Magnesium 2.1 Total Bilirubin 0.70 AST 13 L ALT 15 Alkaline Phosphatase 62 Troponin I High Sens < 3 L Total Protein 7.3 Albumin 3.9 Globulin 3.4 Albumin/Globulin Ratio 1.1 Lipase 60 L TSH 0.83 Urine Color Yellow Urine Clarity Sl. Cloudy Urine pH 5.0 Ur Specific [place] 1.025 Urine Protein 30 H Urine Glucose (UA) Normal Urine Ketones 5 H Urine Occult Blood 250 H Urine Nitrite Negative Urine Bilirubin 1 H Urine Urobilinogen 1 H Ur Leukocyte Esterase 100 H Urine RBC 25-50 SEEN Urine WBC 10-25 SEEN Ur Squamous Epith Cells 0-5 SEEN Urine Bacteria 2+ Urine Mucus 0 SEEN Radiography Chest X-Ray - ED: 1 View Diagnostic Testing: Clinical Impression(s) from Imaging Studies Chest X-Ray 02/18/22 14:10 IMPRESSION: Normal x-ray examination of the chest. Electronically Signed: Baldo Florez MD at 14:29 EDT , 1 view chest x-ray obtained interpreted by myself no acute disease process. Radiology in agreement. EKG Initial EKG: Comments: Sinus rhythm with a rate of 67 bpm with no acute ST segment changes Discharge Plan Triage Chief Complaint: Other, Pain/Inj ED Provider: Harley Wilson Dx/Rx/DC Orders Clinical Impression: Weakness, Chronic diarrhea, Acute hypokalemia Instructions: ED Diarrhea, Unknown Cause, ED Hypokalemia, ED Weakness (Uncertain Cause) Prescriptions: New sulfamethoxazole-trimethoprim [sulfamethoxazole-trimethoprim] 1 TABLET tablet 1 tab PO BID Qty: 6 0RF No Action Daily Probiotic 2.5 billion cell Capsule 1 cap PO DAILY norethindrone acetate [Aygestin] 5 mg tablet 5 mg PO DAILY Qty: 7 0RF potassium chloride 20 mEq/15 mL liquid 20 meq PO DAILY 10 Days Qty: 150 0RF methocarbamol 500 mg tablet 1,000 mg PO TID PRN (Reason: Muscle pain/spasm) Qty: 30 0RF potassium chloride 20 mEq tablet,ER particles/crystals 1 tab PO DAILY Primary Care Provider: Care Physician,No Primary Referrals: Parviz Guadarrama MD [STAFF PHYSICIAN] - 3-5 Days Winston Ruiz DO [NON-STAFF] - Disposition Disposition: Home, Self Care
[2022-02-18 13:55] LABS: Mucous, Urine 0 SEEN /hpf (<or=2+)
[2022-02-18 13:57] LABS: Color, Urine Yellow (Yellow); Glucose, Dipstick Normal (Normal); Ketone-Dipstick 5 mg/dl (Negative); Leukocyte Esterase-Dipstick 100 /ul (Negative); Nitrite-Dipstick Negative (Negative); Occult Blood-Urine 250 /ul (Negative); Protein-Dipstick 30 mg/dl (Negative); Specific Gravity, Urine 1.025 (1.002-1.030); Urine Bilirubin Dipstick 1 mg/dL (Negative); Urine Clarity Sl. Cloudy (Clear); Urine Urobilinogen 1 mg/dl (Normal)
[2022-02-18 14:04] LABS: Bacteria 2+ /hpf (None Seen); Red Blood Cells-Urine 25-50 SEEN /hpf (0-5); Squamous Epithelial Cells - UA 0-5 SEEN /hpf (5-10); White Blood Cells 10-25 SEEN /hpf (0-5)
[2022-02-18] MEDS: 0.9% Normal Saline 1,000 ML 150 ML IV (14:08)
--- NOTE | 2022-02-18 14:10 | RAD_ITS ---
STUDY: X-RAY CHEST REASON FOR EXAM: Female, 36 years old. Dyspnea TECHNIQUE: Single AP portable view of the chest. COMPARISON: Comparison is made with prior study of 10/27/2021. FINDINGS: EKG electrodes are seen. The lungs are clear and expanded. There is no demonstrated pleural abnormality. Normal size heart. Normal mediastinum and sharlene. Normal visualized pulmonary arteries. Normal visualized aortic arch and descending thoracic aorta. Normal visualized thoracic spine. Normal visualized ribs, clavicles, and shoulders. There is no demonstrated abnormality of the visualized soft tissue structures of the upper abdomen. RAD/Chest 1 View (Portable) IMPRESSION: Normal x-ray examination of the chest. Electronically Signed: Baldo Florez MD at 14:29 EDT ,
[2022-02-18 14:12] LABS: Absolute Lymphocyte Count 2.78 X10^3/uL (0.83-4.51); Absolute Neutrophil Count 4.5 X10^3/uL (2.0-7.7); Basophil# 0.05 X10^3/uL; Basophil% 0.6 % (0-1); Eosinophil# 0.18 X10^3/uL; Eosinophils% 2.2 % (0-5); Hematocrit 43.6 % (37-47); Hemoglobin 14.3 g/dL (12.0-15.0); Lymphocyte # 2.78 X10^3/ul (0.83-4.51); Lymphocyte % 34.2 % (19-41); Mean Corp Hgb Conc 32.8 g/dL (32-36); Mean Corpuscular Hgb 27.3 pg (27.0-32.0); Mean Corpuscular Volume 83.2 fL (81-99); Mean Platelet Vol. 10.7 fl (6.2-12.0); Monocyte# 0.58 X10^3/uL; Monocyte% 7.1 % (0-10); NRBC Flagged by Analyzer 0 % (0-5); Neutrophil # 4.52 X10^3/uL (2.7-7.7); Neutrophil % 55.7 % (47-70); Platelet Count 357 K/mm3 (150-450); RBC Distribution Width CV 13.6 % (11.6-14.6); RBC Distribution Width SD 41.4 fl (35.1-43.9); Red Blood Count 5.24 M/mm3 (4.2-5.4); White Blood Count 8.1 K/mm3 (4.4-11.0)
[2022-02-18 14:39] LABS: ALB/GLOB Ratio 1.1 RATIO (0.9-2.4); AST(SGOT) 13 U/L (15-37); Alanine Aminotransfer ALT/SGPT 15 U/L (13-56); Albumin, Serum 3.9 g/dL (3.2-5.0); Alkaline Phosphatase 62 U/L (45-117); Anion Gap 5 (5-15); BUN 5 mg/dL (7-18); BUN/Creat Ratio 5.5 RATIO (10-20); Calcium,Total 9.2 mg/dL (8.5-10.1); Chloride 104 mmol/L (98-107); Creatinine, Serum 0.92 mg/dL (0.55-1.02); EST Glomerular Filtration Rate 73 mL/min (>60); Est Glom Filt Rate - Afr Amer 89 mL/min (>60); Estimated Creatinine Clearance 90.54 ml/min; Globulin 3.4 g/dL (2.2-4.2); Glucose 93 mg/dL (74-106); Lipase 60 U/L (73-393); Magnesium 2.1 mg/dL (1.6-2.6); Potassium 3.2 mmol/L (3.5-5.1); Protein, Total 7.3 g/dL (6.4-8.2); Sodium Level 139 mmol/L (136-145); Thyroid Stim Hormone (TSH) 0.83 uIU/mL (0.358-3.74); Troponin-I HS < 3 pg/mL (3.0-54.0)
[2022-02-18 14:45] VITALS: BP 130/80; PULSE 61; RESP 23; O2SAT 98
[2022-02-18] MEDS: Potassium Chloride Oral Tablet 20 MEQ 40 MEQ PO (15:06)
--- NOTE | 2022-02-18 15:09 | ED.RN ---
NURSE OFFERED TO EITHER DISSOLVE POTASSIUM IN WATER OR TO BREAK IN HALF AFTER PT. STATED, I'LL CHOKE ON THOSE. PT. DECLINED EITHER OPTION AND CHOSE TO TAKE PILLS WHOLE. WILL CONTINUE TO MONITOR.
[2022-02-18] MEDS: Smz/Tmp Ds Tablet 1 TABLET PO (15:25)
== END 2022-02-18 15:30 | disposition home or self-care (01) ==
PROVIDERS: Emergency Provider Emergency Medicine; Visit Provider Emergency Medicine
DX: R53.1 Weakness (principal); K52.9 Noninfective gastroenteritis and colitis, unspecified; E87.6 Hypokalemia; I10 Essential (primary) hypertension; F17.210 Nicotine dependence, cigarettes, uncomplicated; Z79.899 Other long term (current) drug therapy
CPT/HCPCS: 71045; 80053; 81001; 83690; 83735; 84443; 84484; 85025; 87086; 87088; 87811; 93005; 96360; 99283; J7030; A4216

== ENCOUNTER 2025-04-18 16:19 | Emergency (ER) | payer MEDICARE, MEDICAID, SELFPAY ==
[2025-04-18 16:20] VITALS: BP 136/78; PULSE 78; RESP 16; TEMP 36.8; O2SAT 98; BMI 35.2
--- NOTE | 2025-04-18 16:34 | EKG12_ITS ---
Test Reason : CP Blood Pressure : */* mmHG Vent. Rate : 64 BPM Atrial Rate : 64 BPM P-R Int : 144 ms QRS Dur : 98 ms QT Int : 420 ms P-R-T Axes : 24 24 23 degrees QTcB Int : 433 ms Normal sinus rhythm Poor R-wave progression ; consider anterior infarct, lead placement, or normal variant Abnormal ECG Confirmed by CARLINE MELENDEZ, AUDRA ([id number]), content editor GUERRERO SANTOS ([id number]) on 04/20/2025 10:36:30 AM Referred By: DUKE Confirmed By: AUDRA CROWLEY MD
--- NOTE | 2025-04-18 16:35 | EX.ED.DYSGE1 ---
HPI History of Present Illness Chief Complaint: Chest Pain Detail of Chief Complaint: Intermittent chest pain, concern my potassium is low, poor p.o. intake Informant: patient Onset/Context/Timing Onset: Days (For all of her symptoms) Context: Sudden Onset (Lasting 5 minutes described as a nail going through her back and her chest) Timing: Intermittent and Lasts (Approximately 5 minutes) Quality: Sharp Location: back to chest Current Severity: Gone Maximum Severity: Severe Worsened by: Nothing Relieved by: nothing Associated Symptoms Associated Symptoms: I believe my potassium is low Narrative Narrative: patient is a 39-year-old female who presents because of intermittent chest pain, concern potassium is low and not feeling well. Patient has no local physician. She is from [place]. She states she has been admitted in the past. Review of prior ER visits indicates that she canceled an appointment with Veronique Ruiz or internal medicine on February 26, 2022. ER visits are from 2021 and 2020 for hypokalemia and unspecified chest pain. There is been no recent ED visits at [facility]. She has had no recent inpatient visits either. Nothing precipitates the chest pain and nothing exacerbates or alleviates the chest pain the last 5 minutes describes a nail going through her back into her chest. She denies shortness of breath. She denies history of VTE. She has no risk factors for VTE. She is status post hysterectomy September of this year. She denies leg pain, swelling discoloration. She does endorse poor p.o. intake, thirst, she states she is taking 4 potassium powder packs a day. She also states she is on magnesium. I do not see this as at listed med. She endorses decreased urine output. She denies frequency, urgency, hematuria or dysuria. Prior similar symptoms: Yes [facility] Medical History Anemia Dumping syndrome Thyroid cancer HTN (hypertension) Bipolar disorder Home Medications ?Medication ?Instructions ?Recorded ?Last Taken ?Type sulfamethoxazole 800 1 tab PO BID #6 TABLETS 02/18/22 Unknown Rx mg-trimethoprim 160 mg tablet ascorbic acid (vitamin C) 1,000 mg 1,000 mg PO DAILY 04/18/25 Unknown History tablet ferrous sulfate 325 mg (65 mg 325 mg PO BID 04/18/25 Unknown History iron) tablet (FeroSul) folic acid 1 mg tablet 1 mg PO DAILY 04/18/25 Unknown History lamotrigine 200 mg tablet 200 mg PO DAILY 04/18/25 Unknown History levothyroxine 200 mcg tablet 200 mcg PO DAILY 04/18/25 Unknown History magnesium oxide 400 mg (241.3 mg 400 mg PO DAILY 04/18/25 Unknown History magnesium) tablet potassium chloride 20 mEq oral 20 meq PO Q6H 04/18/25 Unknown History packet prazosin 1 mg capsule 1 mg PO QHS 04/18/25 Unknown History Allergy/AdvReac Type Severity Reaction Status Date / Time adhesive tape Allergy Rash Verified 04/18/25 16:22 mirtazapine (From Remeron) AdvReac Intermediate EXTREME Verified 04/18/25 16:22 MOOD SWINGS Surgical History H/O thyroidectomy History of lung surgery Hx of cholecystectomy Social History Smoking Status: Current every day smoker tobacco type: cigarettes substance use type: marijuana ROS ROS ED Constitutional Constitutional ED: Denies chills, fever(s) or subjective Eyes Eyes: Denies blurry vision or change in vision ENT ENT ED: Denies ear pain, rhinorrhea or sore throat Cardiovascular Cardiovascular: Reports chest pain; Denies orthopnea, palpitations, paroxysmal nocturnal dyspnea or racing heartbeat Respiratory/Chest Respiratory/Chest: Denies cough, dyspnea, dyspnea on exertion, orthopnea or paroxysmal nocturnal dyspnea Gastrointestinal Gastrointestinal: Denies abdominal pain, nausea or vomiting Musculoskeletal Musculoskeletal: Reports back pain; Denies arthralgias, myalgias or neck pain Integumentary Denies abscess, Abrasions or rash Neurologic Neurologic: Denies headache(s), paresthesias or weakness Psychiatric Psychiatric: Reports depression; Denies anxiety Endocrine Endocrinology: Denies cold intolerance Hematologic/Lymphatic Hematologic/Lymphatic: Reports systems reviewed and no addt'l complaints, except as documented EXAM Physical Exam Const Vital Signs: 04/18/25 16:20 04/18/25 16:43 04/18/25 17:15 Temperature 98.3 F Temperature Source Oral Pulse Rate 78 55 L Respiratory Rate 16 23 H Respiratory Effort Normal Non-Labored Blood Pressure 136/78 H 113/66 Blood Pressure Mean 97 81 Pulse Ox 98 97 Oxygen Delivery Method Room Air 04/18/25 18:00 Temperature Temperature Source Pulse Rate 62 Respiratory Rate 18 Respiratory Effort Blood Pressure 96/52 L Blood Pressure Mean 66 Pulse Ox 100 Oxygen Delivery Method Positive well nourished and well developed General Appearance ED: well developed and NAD; Negative for cyanotic or diaphoretic HEENT Reports moist mucous membranes HEENT Narrative: Head is atraumatic and normocephalic. Ears normal Eyes PERRL and EOMs intact bilaterally General Eye ED: Negative for pale conjunctiva or scleral icterus Neck no lymphadenopathy, supple and no JVD Chest Wall palpation of chest normal Resp normal respiratory effort and clear to auscultation bilaterally Cardio regular rate, regular rhythm, S1 normal heart sound, S2 normal heart sound and no murmurs GI normal to inspection, nondistended, normoactive bowel sounds, non-tender, non-distended and no masses; Negative for hepatosplenomegaly Back/Spine no CVA tenderness Thoracic Spine / Upper Back: thoracic spinal tenderness Extremity normal to inspection General Extremety ED: Negative for edema or tenderness General Extremity: Negative for edema Neuro oriented x3, CN's II-XII intact bilaterally and no sensory deficits noted Sensorium / Orientation: alert Motor Exam: strength 5/5 throughout Psych Psych Narrative: There is no eye contact during the history or physical. Patient spoke slowly and in a monotone voice. Mood & Affect: depressed Skin no rashes or lesions noted, no wounds and skin turgor normal Skin Narrative: Patient has multiple well-healed self-inflicted wounds that are remote to her extremities. MDM MDM MDM Narrative Medical decision making narrative: Patient's chest pain is not consistent with cardiac. Because of her prior history of hypokalemia and the fact that she has had multiple results with low potassium basic metabolic panel was obtained to assess potassium and renal function as well as CO2 anion gap. Magnesium was added especially since she reports that she is taking 4 packets now of potassium and also states she is on magnesium. If her magnesium is low this may be the reason why she has persistent low hypokalemia. Neurocheck asked if there was any issues when I was in the room with her. I told her that we would look into possible causes of her chest pain and obtain blood work to assess her potassium and magnesium. She also was told that her EKG was normal. The nurse informing that she is upset because she feels this is a waste of her time because they will not find anything. I told the nurse the only thing I said before I left the room was that her EKG was normal. From what I am able to understand patient is upset that her EKG is normal Lab Data Attestation: I reviewed the patient's lab results. Lab results narrative: Electrolyte panel was normal potassium is slightly elevated magnesium. Labs: Laboratory Results - last 24 hr 04/18/25 16:50 Sodium 143 Potassium 3.6 Chloride 102 Carbon Dioxide 26.3 Anion Gap 15 BUN 4 Creatinine 0.80 Estim Creat Clear Calc 126.41 Est GFR (MDRD) Non-Af 96 BUN/Creatinine Ratio 5.1 L Glucose 83 Calcium 9.4 Magnesium 2.3 H Treatment and Re-Evaluation :: Patient's nurse Yhoana was present when I informed of the results. Patient asked what was the cause of her chest pain. She was informed that 50% of patients to go to any emergency room the answer is undetermined. She was informed that my responsibilities emergency physician is to determine if she has a life-threatening issue which she does not. Her response was hide like my paperwork to go home. Discharge Plan Triage Chief Complaint: Chest Pain ED Provider: Dwain Plasencia Dx/Rx/DC Orders Clinical Impression: Intermittent chest pain, History of posttraumatic stress disorder (PTSD), Smoker, Depression Instructions: ED Chest Pain, Noncardiac Prescriptions: No Action sulfamethoxazole-trimethoprim [sulfamethoxazole-trimethoprim] 1 TABLET tablet 1 tab PO BID Qty: 6 0RF ascorbic acid (vitamin C) 1,000 mg tablet 1,000 mg PO DAILY ferrous sulfate [FeroSul] 325 mg (65 mg iron) tablet 325 mg PO BID folic acid 1 mg tablet 1 mg PO DAILY lamotrigine 200 mg tablet 200 mg PO DAILY levothyroxine 200 mcg tablet 200 mcg PO DAILY magnesium oxide 400 mg (241.3 mg magnesium) tablet 400 mg PO DAILY potassium chloride 20 mEq packet 20 meq PO Q6H prazosin 1 mg capsule 1 mg PO QHS Primary Care Provider: JOSE A ERVIN Referrals: Care Physician,No Primary [Non-Staff, Medical] Doctor,Your [Non-Staff, None] Print Language: Yakut Disposition Disposition: Home, Self Care
[2025-04-18 17:15] VITALS: BP 113/66; PULSE 55; RESP 23; O2SAT 97
--- NOTE | 2025-04-18 17:21 | ED.RN ---
Pt was notably tearful after being seen by the MD. This RN asked what happened, why she was upset. Pt states this is just a waste of time, everything is gonna come back normal. This RN provided emotional support stating that her complaint is certainly a valid reason to be seen and that ultimately the best case would be that all the results are normal and she can go home. Pt was assured that the appropriate testing was ordered to r/o cardiac issue and to check her chemistry d/t her history. Dr. Plasencia notified of pt's behavior.
[2025-04-18 17:30] LABS: Anion Gap 15 (5-15); BUN 4 mg/dL (4-19); BUN/Creat Ratio 5.1 RATIO (10-20); Calcium,Total 9.4 mg/dL (7.6-11.0); Carbon Dioxide 26.3 mmol/L (21.0-32.0); Chloride 102 mmol/L (98-108); Estimated Creatinine Clearance 126.41 ml/min (50-250); Glucose 83 mg/dL (70-99); Magnesium 2.3 mg/dL (1.5-2.2); Potassium 3.6 mmol/L (3.3-5.1)
[2025-04-18 18:00] VITALS: BP 96/52; PULSE 62; RESP 18; O2SAT 100
[2025-04-18 18:29] VITALS: BP 96/52; PULSE 63; RESP 17; TEMP 36.8; O2SAT 97
--- NOTE | 2025-04-18 18:29 | ED.RN ---
This RN accompanied Dr. Plasencia into room to inform pt that her lab results were normal including electrolytes. Pt immediately began aggressively removing bp cuff and tele leads and begins crying. Pt asked why she is so upset and educated that this is good news. Pt states I'm just gonna go home and continue to have chest pain forever!!?? This Rn provided emotional support and education on the necessity of following up with PCP and/or specialist who can do further testing that is not possible in the ED. RN attempted to reassure pt that with certainty we can state she is not having a cardiac event which is a great finding. Pt not responsive to feedback.
== END 2025-04-18 18:37 | disposition home or self-care (01) ==
PROVIDERS: Emergency Provider Emergency Medicine; Visit Provider Emergency Medicine
DX: R07.89 Other chest pain (principal); F31.9 Bipolar disorder, unspecified; F43.10 Post-traumatic stress disorder, unspecified; I10 Essential (primary) hypertension; D64.9 Anemia, unspecified; F17.210 Nicotine dependence, cigarettes, uncomplicated; Z90.49 Acquired absence of other specified parts of digestive tract; Z90.89 Acquired absence of other organs; Z85.850 Personal history of malignant neoplasm of thyroid; Z79.890 Hormone replacement therapy; Z79.899 Other long term (current) drug therapy; Z90.710 Acquired absence of both cervix and uterus
CPT/HCPCS: 80048; 83735; 93005; 99283; A4216

== ENCOUNTER 2025-05-19 18:13 | Emergency (ER) | payer MEDICARE, MEDICAID, SELFPAY ==
[2025-05-19 18:14] VITALS: BP 131/76; PULSE 90; RESP 18; TEMP 36.8; O2SAT 99; BMI 35.3
--- NOTE | 2025-05-19 18:28 | EKG12_ITS ---
Test Reason : CP Blood Pressure : */* mmHG Vent. Rate : 81 BPM Atrial Rate : 81 BPM P-R Int : 158 ms QRS Dur : 100 ms QT Int : 388 ms P-R-T Axes : 66 30 33 degrees QTcB Int : 450 ms Normal sinus rhythm Normal ECG Confirmed by CARLINE MELENDEZ, AUDRA ([id number]), web content editor GUERRERO SANTOS ([id number]) on 05/21/2025 9:27:30 AM Referred By: CRISTINA Confirmed By: AUDRA CROWLEY MD
--- OUTSIDE RECORDS SUMMARY | 2025-05-19 18:58 | XMS RPT_ITS | CCD ---
Author Organization [facility] Care Team Providers Care Cnc Service Technician Name Role Phone NICHOLAS BRANCH Admitting Unavailable NICHOLAS BRANCH Attending Unavailable VALERI MCCORD MD Admitting Unavailable VALERI MCCORD MD Attending Unavailable VALERI MCCORD MD Primary Care Unavailable Winston Ruiz Primary Care Provider Winston Ruiz DO Primary Care Provider PHYSICIAN, PATIENT UNSURE Primary Care Physician Unavailable Winston Ruiz DO Primary Care Provider Winston Ruiz DO Primary Care Provider WINSTON RUIZ Primary Care Unavailable Winston Ruiz Primary Care Provider WINSTON RUIZ Primary Care Unavailable Winston Ruiz DO Primary Care Provider [facility], Other Prima ry Care Provider Power Delaney Unavailable Unavailable Olga Dhillon CNP Primary Care Provider Olga Dhillon CNP Primary Care Provider Santi Lam Primary Care Provider Eri Mckeon CNP Primary Care Provider [phone] Michelle Rain CNP Primary Care Provider SANTI LAM Primary Care Unavailable Michelle Rain Primary Care Provider [phone] MICHELLE RAIN Primary Care Unavailable POWER PARKER Referring Unavailable MICHELLE RAIN Primary Care Unavailable POWER PARKER Referring Unavailable Varinder Patel DO Primary Care Provider [phone] MICHELLE RAIN Primary Care Unavailable POWER PAREKR Referring Unavailable POWER PARKER Referring Unavailable POWER PARKER Attending Unavailable BRISEYDA, MICHELLE Joshi Primary Care Unavailable PATEL, VARINDER T Primary Care Unavailable SHANNAN GURROLA Attending Unavailable SWIKEIT, MICHELLE L Primary Care Unavailable BRAD GARCIA Attending Unavailable SWIKEIT, MICHELLE L Primary Care Unavailable POWER PARKER Attending Unavailable SWIHART, MICHELLE L Primary Care Unavailable SWIHART, MICHELLE L Primary Care Unavailable POWER PARKER Attending Unavailable CAROLE, SANTI Primary Care Unavailable JOSE WHITEHEAD Attending Unavailable LOPARO MAETINEE Referring Unavailable CAROLE, SANTI Primary Care Unavailable CAROLE, SANTI Primary Care Unavailable CAROLE, SANTI Primary Care Unavailable JOSE WHITEHEAD Attending Unavailable RuizWinston santoro DO L Primary Care Provider [phone] STONE, OLGA RADHA Primary Care Unavailable SYSTEM, PROVIDER NOT IN Attending Unavaila ble SYSTEM, PROVIDER NOT IN Referring Unavaila ble SYSTEM, PROVIDER NOT IN Attending Unavaila ble STONE, OLGA RADHA Primary Care Unavailable SYSTEM, PROVIDER NOT IN Referring Unavaila ble SYSTEM, PROVIDER NOT IN Attending Unavaila ble STONE, OLGA RADHA Primary Care Unavailable SYSTEM, PROVIDER NOT IN Referring Unavaila ble SYSTEM, PROVIDER NOT IN Attending Unavaila ble STONE, OLGA RADHA Primary Care Unavailable SYSTEM, PROVIDER NOT IN Referring Unavaila ble STONE, OLGA RADHA Primary Care Unavailable SYSTEM, PROVIDER NOT IN Attending Unavaila ble SYSTEM, PROVIDER NOT IN Referring Unavaila ble STONE, OLGA RADHA Primary Care Unavailable [facility], OTHER Prima ry Care Unavailable MICHELLE RAIN Referring Unavailable ELIAZAR CALDWELL JR, JR Attending Unavaila ble Michelle Rain CNP Unavailable [phone] SELF Referring Unavailable MICHELLE RAIN Primary Care Unavailable PATELVARINDER T Attending Unavailable PATEL, VARINDER T Primary Care Unavailable PATEL, VARINDER T Referring Unavailable CARLOS BROWNE Attending Unavailable BRISEYDA, MICHELLE NEAL Primary Care Unavailable POWER PARKER Referring Unavailable Jose A Dougherty CNP Primary Care Provider MICHELLE RAIN VAL Primary Care Unavailable PASKEY, TORY NEAL Attending Unavailable GILLES KIM Attending Unavailable SWIHART, MICHELLE VAL Primary Care Unavailable SWIHART, MICHELLE VAL Primary Care Unavailable PASKEY, TORY NEAL Attending Unavailable MYLES, EVANGELISTA MARTINES Admitting Unavailable NIKHIL, EVANGELISTA MARTINES Referring Unavailable SWIHART, MICHELLE VAL Primary Care Unavailable MYLES, EVANGELISTA MARTINES Attending Unavailable SWIHART, MICHELLE VAL Primary Care Unavailable MADHU NYE Attending Unavailable SWIHART, MICHELLE VAL Primary Care Unavailable DOUGHERTY, JOSE A K Primary Care Unavailable LINDSAY SHERMAN Attending Unavailab le SWIHART, MICHELLE VAL Primary Care Unavailable PASKEY, TORY NEAL Attending Unavailable SWIHART, MICHELLE VAL Primary Care Unavailable PASKEY, TORY NEAL Attending Unavailable SWIHART, MICHELLE VAL Primary Care Unavailable SANJAY TILLEY Attending Unavaila ble SWIHART, MICHELLE VAL Primary Care Unavailable SELINA OWEN Attending Unavailable SWIHART, MICHELLE VAL Primary Care Unavailable VIRAMONTESLUTHER Driscoll Attending Unavailab le SWIHART, MICHELLE VAL Primary Care Unavailable VIRAMONTESLUTHER Driscoll Attending Unavailab le VIRAMONTES, LUTHER OWEN Attending Unavailab le SWIHART, MICHELLE VAL Primary Care Unavailable NABEEL DOBBINS Attending Unavailable SWIHART, MICHELLE VAL Primary Care Unavailable SWIHART, MICHELLE VAL Primary Care Unavailable NABEEL DOBBINS Attending Unavailable BRANDON NORTON Attending Unavail able BRANDON NORTON Admitting Unavail able DOUGHERTY, JOSE A K Primary Care Unavailable CATIE ORTEGA Attending Unavailable SWIHART, MICHELLE VAL Primary Care Unavailable SWIHART, MICHELLE VAL Primary Care Unavailable CODY OTERO Attending Unavailab le PASKEY, TORY NEAL Admitting Unavailable SWIHART, MICHELLE VAL Primary Care Unavailable PASKEY, TORY NEAL Attending Unavailable PASKEY, TORY NEAL Admitting Unavailable Brad Beckman Attending Unavailable Care Physician, No Primary Primary Care Unava ilable Care Physician, No Primary Referring Unava ilable Plasencia, Dwain Attending Unavailable VICKY QUEVEDO Primary Care Unavailable MAST TIRE INSTALLER[employer]ENTRAL SUPPLY MANAGER, HARRIET Primary Care Physician PHYSICIAN, PATIENT UNSURE Primary Care DR YOHANNES Gann DO Attending Unavailable MAST HARRIET SCHAFER Attending Unavailabl e MAST HARRIET SCHAFER Primary Care Unavailabl e Allergies Allergy Classification Reported Allergen(s) Allergy Type Date of Onset Reaction(s) Facility Adhesive Tape (4 sources) Adhesive Tape Substance Allergy 10-18-[address] [facility] Mirtazapine (4 sources) Mirtazapine Drug Allergy 01-13-20 11 Mental Status Change [facility] (20 sources) Adhesive Tape; Translations: [ADHESIVE TAPE (ROSINS)] Propensity to adverse reactions (disorder) 10-18-19 09 [facility] (20 sources) Mirtazapine; Translations: [MIRTAZAPINE] Drug Allergy 01-13-20 11 Other (See Comments), Mental Status Change, Hallucinations [facility] (1 source) Adhesive Tape; Translations: [TAPE] Propensity to adverse reactions (disorder) [facility] (1 source) Mirtazapine Drug Allergy [facility] (3 sources) Adhesive Tape; Translations: [adhesive tape] Propensity to adverse reactions to drug 03-11-20 20 [place] (16 sources) Adhesive agent Propensity to adverse reactions to drug 10-29-19 23 [facility] (20 sources) Adhesive Tape-Silicones; Translations: [ADHESIVE TAPE-SILICONES] Propensity to adverse reactions to drug 10-18-19 09 [facility] (2 sources) Adhesive bandage Drug allergy [facility] Medications Current Medications Medication Drug Class(es) Dates Sig (Normalized) Sig (Original) 8 hr acetaminophen 650 mg extended release oral tablet (20 sources) Start: 06-14-2023 take 1 tablet by mouth every eight hours as needed for pain acetaminophen (TYLENOL ER) 650 MG CR tablet Indications: Radiculopathy, unspecified spinal region Take 1 (one) tablet (650 mg total) by mouth every 8 (eight) hours as needed for pain . 30 tablet 1 06/14/2023 Active acetaminophen 500 mg / diphenhydrAMINE hydrochloride 25 mg oral tablet (1 source) Histamine-1 Receptor Antagonist Start: 05-15-2025 take 1 tablet by mouth once daily at bedtime Tylenol PM Extra Strength oral tablet tab(s), Oral, qHS, 0 Refill(s) Start Date: 05/15/25 Status: Ordered Medication Dispense Status: Completed Total Allowed Fills: 1 Fills Dispensed: 0 acetaminophen 325 mg / HYDROcodone bitartrate 5 mg oral tablet (4 sources) Opioid Agonist Start: 08-06-2023 End: 08-09-2023 HYDROcodone-acetami nophen (NORCO) 5-325 mg per tablet Indications: Thyroid nodule Take 1 (one) tablet by mouth every 6 (six) hours as needed (Days supply per fill: 3) . 12 tablet 0 08/06/2023 08/09/2023 Active Start: 08-04-2023 End: 08-06-2023 take 1-2 tablets by mouth every four hours as needed 1-2 tablet, Oral, Every 4 hours PRN (may repeat), moderate to severe pain, Starting on Wed08/04/23 at 2014 Initiate with 1 tablet oral every 4 hours prn moderate to severe pain. For unrelieved pain, may repeat 1 tablet within 60 minutes of initial dose. If pain is RELIEVED after repeat dose, change to two tablets of 5/325 mg every 4 hours prn moderate to severe pain. If pain is UNrelieved after repeat dose, or patient requires dose reduction, call physician. Start: 03-07-2023 End: 03-07-2023 hydroCODone-acetaminophen (N ORCO) 5-325 MG per tablet 1 tablet Albuterol (2 sources) beta2-Adrenergic Agonist Start: 05-15-2025 albut luanne 0 Refill(s) Start Date: 05/15/25 Status: Ordered Medication Dispense Status: Completed Total Allowed Fills: 1 Fills Dispensed: 0 Start: 12-14-2024 take 2 puff(s) by in halation every six hours as needed albuterol 90 mcg/actuation inhaler Inhale 2 (two) puffs every 6 (six) hours as needed . 6.7 g 12/14/2024 Active Ascorbic Acid (20 sources) Vitamin C Start: 05-15-2025 Vitamin C qDay , 0 Refill(s) Start Date: 05/15/25 Status: Ordered Medication Dispense Status: Completed Total Allowed Fills: 1 Fills Dispensed: 0 Start: 02-27-2025 take 1 tablet by juanito th once daily ascorbic acid, vitamin C, (vitamin C) 1000 MG tablet Indications: Body aches Take 1 (one) tablet (1,000 mg total) by mouth daily . 90 tablet 02/27/2025 Active Start: 05-09-2024 take 1 tablet by juanito th once daily ascorbic acid, vitamin C, (vitamin C) 1000 MG tablet Take 1 (one) tablet (1,000 mg total) by mouth daily . 30 tablet 1 05/09/2024 Active Start: 11-22-2023 take 1 tablet by juanito th once daily ascorbic acid, vitamin C, (vitamin C) 1000 MG tablet Take 1 (one) tablet (1,000 mg total) by mouth daily . 30 tablet 1 11/22/2023 Active Start: 08-05-2023 End: 08-06-2023 take 1000 mg by mouth once daily 1,000 mg, Oral, Daily, First dose on Jenny 08/05/23 at 0900 take 1 tablet by juanito th once daily ascorbic acid, vitamin C, (vitamin C) 1000 MG tablet Take 1 (one) tablet (1,000 mg total) by mouth daily . 0 Active atorvastatin 40 mg oral tablet (4 sources) HMG-CoA Reductase Inhibitor Start: 09-10-2016 atorvastatin 40 mg oral tablet Dose : 40 mg = 1 tab(s), Oral, qHS, 0 Refill(s) Start Date: 09/10/16 Status: Ordered Medication Dispense Status: Completed Total Allowed Fills: 1 Fills Dispensed: 0 ATORVASTATIN TONEY CIUM PO Take by mouth High cholesterol 0 Active b 12 injection (1 source) Start: 05-15-2025 b 12 injection b 12 injection, 0 Refill(s), 113.6 Start Date: 05/15/25 Status: Ordered Medication Dispense Status: Completed Total Allowed Fills: 1 Fills Dispensed: 0 bisacodyl 5 mg delayed release oral tablet (16 sources) Stimulant Laxative Start: 04-08-2023 End: 06-01-2023 bisacodyL (DULCOLAX) 5 mg EC tablet Take 4 tablets 8PM the evening before your colonoscopy . 4 tablet 0 04/08/2023 06/01/2023 Discontinued (Therapy completed) Start: 10-15-2021 Bisacodyl (DUL COLAX) 5 mg tab Use as directed for Miralax / Gatorade Bowel Prep Kit 4 tablet 0 10/15/2021 Active Comment on above: Use as directed for Miralax / Gatorade Bowel Prep Kit busPIRone hydrochloride 15 mg oral tablet (9 sources) Start: 10-30-2021 End: 12-06-2021 take 0.5 tablet by mouth three times daily, then take 1 tablet by mouth three times daily busPIRone (BUSPAR) 15 mg tablet Take 0.5 tablets by mouth three times daily for 7 days, THEN 1 tablet three times daily. 101 tablet 1 10/30/2021 12/06/2021 Active Start: 09-10-2016 take 1 dose by mouth three times daily as needed for anxiety BuSpar Dose : 15 mg =, Oral, TID, PRN Anxiety, 0 Refill(s) Start Date: 09/10/16 Status: Ordered Medication Dispense Status: Completed Total Allowed Fills: 1 Fills Dispensed: 0 busPIRone HCl (B USPAR PO) Take by mouth anxiety 0 Active Comment on above: Take 0.5 tablets by mouth three times daily for 7 days, THEN 1 tablet three times daily. calcium carbonate 1250 mg / cholecalciferol 200 unt oral tablet (20 sources) Vitamin D Start: 04-06-2023 End: 04-05-2024 take 1 tablet by mouth twice daily at mealtime calcium-vitamin D (OS-TONEY +D) 500 mg-5 mcg (200 unit) per tablet Take 1 (one) tablet by mouth 2 (two) times a day with meals . 60 tablet 11 04/06/2023 04/05/2024 Active cholecalciferol 0.01 mg oral capsule (20 sources) Vitamin D take 1 capsule by mouth once daily cholecalciferol, vitamin D3, 10 mcg (400 unit) cap Take 400 Units by mouth once daily. Active take 25924 [IU] by mouth once da reza Cholecalciferol (VITAMIN D3 PO) Take 50,000 Units by mouth daily supplement 0 Active take 82469 [IU] by mouth once da rzea Cholecalciferol (VITAMIN D3 PO) Take 50,000 Units by mouth daily supplement 0 Active Comment on above: Take [address] [facility] once daily. citalopram 40 mg oral tablet (2 sources) Serotonin Reuptake Inhibitor Start: 09-10-19 CeleXA 40 mg oral tablet Dose : 40 mg = 1 tab(s), Oral, qDay, 0 Refill(s) Start Date: 09/10/16 Status: Ordered Medication Dispense Status: Completed Total Allowed Fills: 1 Fills Dispensed: 0 colestipol hydrochloride 1000 mg oral tablet (1 source) Bile Acid Sequestrant Start: 03-07-20 take 1 tablet by mouth twice daily colestipoL (Colestid) 1 gram tablet Take 1 (one) tablet (1 g total) by mouth 2 (two) times a day . 60 tablet 2 03/07/2025 Active cyclobenzaprine hydrochloride 10 mg oral tablet (20 sources) Muscle Relaxant Start: 05-15-20 cyclobenzaprine 10 mg oral tablet Dose : 10 mg = 1 tab(s), Oral, TID, PRN as needed for spasm, # 30 tab(s), 0 Refill(s) Start Date: 05/15/25 Status: Ordered Medication Dispense Status: Completed Quantity: 30.0 Unit: tab(s) Total Allowed Fills: 1 Fills Dispensed: 0 Start: 08-10-2024 take 1 tablet by juanito three times daily as needed for muscle spasms cyclobenzaprine (FLEXERIL) 10 MG tablet Indications: Radiculopathy, unspecified spinal region Take 1 (one) tablet (10 mg total) by mouth 3 (three) times a day as needed for muscle spasms . 30 tablet 08/10/2024 Active Start: 05-09-2024 take 1 tablet by juanito th three times daily as needed for muscle spasms cyclobenzaprine (FLEXERIL) 10 MG tablet Indications: Radiculopathy, unspecified spinal region Take 1 (one) tablet (10 mg total) by mouth 3 (three) times a day as needed for muscle spasms . 30 tablet 05/09/2024 Active Start: 11-22-2023 take 1 tablet by juanito three times daily as needed for muscle spasms cyclobenzaprine (FLEXERIL) 10 MG tablet Indications: Radiculopathy, unspecified spinal region Take 1 (one) tablet (10 mg total) by mouth 3 (three) times a day as needed for muscle spasms . 30 tablet 0 11/22/2023 Active Start: 07-08-2023 take 1 tablet by juanito th three times daily as needed for muscle spasms cyclobenzaprine (FLEXERIL) 10 MG tablet Indications: Radiculopathy, unspecified spinal region Take 1 (one) tablet (10 mg total) by mouth 3 (three) times a day as needed for muscle spasms . 90 tablet 0 07/08/2023 Active Start: 06-14-2023 take 1 tablet by juanito th three times daily as needed for muscle spasms cyclobenzaprine (FLEXERIL) 5 MG tablet Indications: Radiculopathy, unspecified spinal region Take 1 (one) tablet (5 mg total) by mouth 3 (three) times a day as needed for muscle spasms . 30 tablet 1 06/14/2023 Active diclofenac sodium 75 mg delayed release oral tablet (5 sources) Nonsteroidal Anti-inflammatory Drug Start: 04-02-2023 End: 05-02-2023 take 1 tablet by mouth twice daily at mealtime diclofenac sodium (VOLTAREN) 75 MG EC tablet Indications: Radiculopathy, unspecified spinal region Take 1 (one) tablet (75 mg total) by mouth 2 (two) times a day with meals . 60 tablet 0 04/02/2023 05/02/2023 Active ferrous sulfate (11 sources) Start: 05-15-2025 ferrous sulfate Oral, 0 Refill(s) Start Date: 05/15/25 Status: Ordered Medication Dispense Status: Completed Total Allowed Fills: 1 Fills Dispensed: 0 Start: 02-27-2025 take 1 tablet by juanito th twice daily ferrous sulfate 325 (65 FE) MG tablet Indications: Other iron deficiency anemia Take 1 (one) tablet (325 mg total) by mouth 2 (two) times a day . 180 tablet 02/27/2025 Active Start: 11-22-2023 End: 05-09-2025 take 1 tablet by mouth once daily at breakfast ferrous sulfate 325 (65 FE) MG tablet Take 1 (one) tablet (325 mg total) by mouth daily with breakfast . 30 tablet 2 05/09/2024 05/09/2025 Active FIBER, CALCIUM POLYCARBOPHIL , ORAL (8 sources) FIBER, CALCIUM P OLYCARBOPHIL, ORAL Take by mouth. Active FIBER, CALCIUM P OLYCARBOPHIL, ORAL Take by mouth. 0 Active Folic Acid (2 sources) Start: 05-15-2025 folic acid qDa y, 0 Refill(s) Start Date: 05/15/25 Status: Ordered Medication Dispense Status: Completed Total Allowed Fills: 1 Fills Dispensed: 0 Start: 02-27-2025 take 1 tablet by juanito once daily folic acid (FOLVITE) 1 MG tablet Indications: Hypokalemia Take 1 (one) tablet (1 mg total) by mouth daily . 90 tablet 02/27/2025 Active gabapentin 300 mg oral capsule (2 sources) Anti-epileptic Agent Start: 09-10-2016 Neurontin 300 mg oral capsule Dose : 300 mg = 1 cap(s), Oral, BIDM, 0 Refill(s) Start Date: 09/10/16 Status: Ordered Medication Dispense Status: Completed Total Allowed Fills: 1 Fills Dispensed: 0 hydrocortisone 25 mg/ml topical cream (1 source) Corticosteroid Start: 02-27-2025 hydrocortisone (Proctosol HC) 2.5 % rectal cream Indications: Rectal irritation Insert into the rectum 2 (two) times a day Apply to rectum twice daily for irritation . 30 g 02/27/2025 Active hydrOXYzine hydrochloride 50 mg oral tablet (20 sources) Antihistamine Start: 02-27-2025 take 1 tablet by mouth every six hours hydrOXYzine (ATARAX) 50 MG tablet Indications: Anxiety and depression Take 1 (one) tablet (50 mg total) by mouth every 6 (six) hours . 90 tablet 3 02/27/2025 Active Start: 08-05-2023 End: 08-06-2023 take 1 tablet by mouth every twelve hours as needed for anxiety 50 mg, Oral, Every 12 hours PRN, anxiety, Starting on [facility] 08/05/23 at 1109 Start: 08-04-2023 End: 09-03-2023 take 1 capsule by mouth twice daily as needed for anxiety hydrOXYzine (VISTARIL) 50 MG capsule Indications: Anxiety Take 1 (one) capsule (50 mg total) by mouth 2 (two) times a day as needed for anxiety . 60 capsule 0 08/04/2023 09/03/2023 Active Start: 07-08-2023 End: 09-06-2023 take 1 capsule by mouth twice daily hydrOXYzine (VISTARIL) 100 MG capsule Indications: Anxiety Take 1 (one) capsule (100 mg total) by mouth 2 (two) times a day . 60 capsule 1 07/08/2023 08/03/2023 Discontinued Start: 06-14-2023 End: 07-14-2023 take 1 capsule by mouth twice daily hydrOXYzine (VISTARIL) 50 MG capsule Indications: Anxiety Take 1 (one) capsule (50 mg total) by mouth 2 (two) times a day . 60 capsule 0 06/14/2023 07/14/2023 Active Start: 05-31-2023 End: 06-30-2023 take 1 capsule by mouth twice daily hydrOXYzine (VISTARIL) 25 MG capsule Indications: Anxiety Take 1 (one) capsule (25 mg total) by mouth 2 (two) times a day . 60 capsule 0 05/31/2023 06/14/2023 Discontinued (Reorder (Suppress CancelRx Message to Pharmacy)) Start: 09-14-2016 take [address] [facility] three times daily as needed for anxiety hydrOXYzine (VISTARIL) 50 MG capsule Indications: Anxiety Take 1 (one) capsule (50 mg total) by mouth 3 (three) times a day as needed for anxiety . 90 capsule 1 11/17/2023 Active take 50 mg by mouth every six hours hydroxyzine HCl (ATARAX ORAL) Take 50 mg by mouth every 6 hours. Active hydroxyzine HCl (ATARAX ORAL) Take by mouth. 0 Active ibuprofen 600 mg oral tablet (20 sources) Nonsteroidal Anti-inflammatory Drug Start: 05-15-2025 ibuprofen 600 mg oral tablet 0 Refill(s) Start Date: 05/15/25 Status: Ordered Medication Dispense Status: Completed Total Allowed Fills: 1 Fills Dispensed: 0 Start: 12-14-2024 take 1 tablet by juanito th every six hours as needed for pain ibuprofen (ADVIL,MOTRIN) 600 MG tablet Indications: Arthralgia, unspecified joint Take 1 (one) tablet (600 mg total) by mouth every 6 (six) hours as needed for pain . 90 tablet 12/14/2024 Active Start: 09-13-2024 End: 10-13-2024 take 1 tablet by mouth every six hours as needed for pain ibuprofen (ADVIL,MOTRIN) 600 MG tablet Take 1 (one) tablet (600 mg total) by mouth every 6 (six) hours as needed for pain . 60 tablet 09/13/2024 9:45 AM EST 09/13/2024 10/13/2024 Active Start: 12-26-2023 take 1 tablet by juanito th every eight hours as needed ibuprofen (MOTRIN) 800 mg tablet Take 1 tablet by mouth every 8 hours as needed for pain. 21 tablet 12/26/2023 Active Start: 09-10-2016 take 1 dose by mouth three times daily as needed for pain Motrin Dose : 800 mg =, Oral, TID, PRN as needed for pain, 0 Refill(s) Start Date: 09/10/16 Status: Ordered Medication Dispense Status: Completed Total Allowed Fills: 1 Fills Dispensed: 0 iv contrast (will be provided with radiology test) (3 sources) Start: 12-09-2021 End: 12-10-2021 inject 1 dose intravenously once iv contrast (will be provided with radiology test) Indications: Acute nonintractable headache, unspecified headache type , Word finding difficulty , Memory deficit , Bilateral leg paresthesia CT Brain WO/W - No IV access, insert saline lock prior to the sedation, infusion, injection for imaging exam. Discontinue saline lock post exam. If Pt. has a central line or IVAD, may access for administration according to line specific nursing protocol. Once exam is complete flush line and de-access according to line specific nursing protocol in the CT contrast administration guidelines link. 1 Each 0 12/09/2021 12/10/2021 Active Comment on above: CT Brain WO/W - No I V access, insert saline lock prior to the sedation, infusion, injection for imaging exam. Discontinue saline lock post exam. If Pt. has a central line or IVAD, may access for administration according to line specific nursing protocol. Once exam is complete flush line and de-access according to line specific nursing protocol in the CT contrast administration guidelines link. ketorolac tromethamine 10 mg oral tablet (2 sources) Nonsteroidal Anti-inflammatory Drug, Cyclooxygenase Inhibitor Start: 11-01-2023 End: 11-06-2023 take 1 tablet by mouth every six hours as needed for pain ketorolac (TORADOL) 10 mg tablet Take 1 (one) tablet (10 mg total) by mouth every 6 (six) hours as needed for pain . 20 tablet 0 11/01/2023 11/06/2023 Active Start: 10-13-2023 take 1 tablet by juanito th three times daily as needed for pain ketorolac (TORADOL) 10 mg tablet Take 1 (one) tablet (10 mg total) by mouth 3 (three) times a day as needed for pain . 15 tablet 0 10/13/2023 Active lamoTRIgine 100 mg oral tablet (20 sources) Mood Stabilizer, Anti-epileptic Agent Start: 05-15-2025 lamoTRIgine 100 mg oral tablet 0 Refill(s) Start Date: 05/15/25 Status: Ordered Medication Dispense Status: Completed Total Allowed Fills: 1 Fills Dispensed: 0 Start: 02-16-2025 End: 03-07-2025 take 1 tablet by mouth once daily lamoTRIgine (LAMICTAL) 200 MG tablet Indications: Mood disorder Take 1 (one) tablet (200 mg total) by mouth daily . Start this dose after taking 150 mg daily for one week. . 30 tablet 1 02/16/2025 03/07/2025 Discontinued (Dose adjustment) Start: 05-24-2024 End: 08-03-2024 take 1 tablet by mouth once daily lamoTRIgine (LAMICTAL) 100 MG tablet Indications: Mood disorder Take 1 (one) tablet (100 mg total) by mouth daily . 30 tablet 1 08/03/2024 Active Start: 11-17-2023 take 1 tablet by juanito th once daily lamoTRIgine (LAMICTAL) 100 MG tablet Indications: Mood disorder (HCC) Take 1 (one) tablet (100 mg total) by mouth daily Start . 30 tablet 1 11/17/2023 Active Start: 09-14-2023 take 1 tablet by juanito th once daily lamoTRIgine (LAMICTAL) 100 MG tablet Indications: Mood disorder (HCC) Take 1 (one) tablet (100 mg total) by mouth daily Start Start: 09/14/23. 30 tablet 1 09/14/2023 Active Start: 09-14-2023 take 1 tablet by juanito th once daily lamoTRIgine (LAMICTAL) 100 MG tablet Indications: Mood disorder (HCC) Take 1 (one) tablet (100 mg total) by mouth daily Start Start: 09/14/23. 30 tablet 1 09/14/2023 Active Start: 12-31-2021 End: 09-16-2023 take 1 tablet by mouth once daily, then take 2 tablets by mouth once daily lamoTRIgine (LAMICTAL) 25 MG tablet Indications: Mood disorder (HCC) Take 1 (one) tablet (25 mg total) by mouth daily for 14 days, THEN 2 (two) tablets (50 mg total) daily for 16 days. 46 tablet 0 08/17/2023 09/16/2023 Active Start: 10-30-2021 End: 12-13-2021 take 1 tablet by mouth once daily, then take 2 tablets by mouth once daily lamoTRIgine (LAMICTAL) 25 mg tablet Take 1 tablet by mouth once daily for 14 days, THEN 2 tablets once daily. 74 tablet 1 10/30/2021 12/13/2021 Active take 50 mg by mouth once daily l amotrigine (LAMICTAL ORAL) Take 50 mg by mouth once daily. Active lamotrigine (RAMIREZ ICTAL ORAL) Take by mouth. 0 Active lamoTRIgine (RAMIREZ ICTAL PO) Take by mouth 0 Active Comment on above: Take 1 tablet by juanito th once daily for 14 days, THEN 2 tablets once daily. levothyroxine sodium 0.2 mg oral tablet (20 sources) l-Thyroxine Start: 05-15-2025 levothyroxine 200 mcg (0.2 mg) oral tablet 0 Refill(s) Start Date: 05/15/25 Status: Ordered Medication Dispense Status: Completed Total Allowed Fills: 1 Fills Dispensed: 0 Start: 02-27-2025 levothyroxine (SYNTHROID, LEVOTHROID) 200 MCG tablet Indications: Hypothyroidism, unspecified type Take 1 (one) tablet (200 mcg total) by mouth daily on an empty stomach, with water, 1 hr before food / drinks / meds, and 4 hrs apart from calcium, magnesium, iron, multivitamin supplements. Take double dose next day if miss one day . 90 tablet 02/27/2025 Active Start: 11-24-2023 take 1 tablet by juanito th once daily levothyroxine (SYNTHROID, LEVOTHROID) 175 MCG tablet Indications: Hypothyroidism, unspecified type Take 1 (one) tablet (175 mcg total) by mouth daily . 30 tablet 1 11/24/2023 Active Start: 10-19-2023 End: 08-29-2024 take 1 tablet by mouth once daily before breakfast levothyroxine (SYNTHROID) 200 mcg tablet Indications: Postoperative hypothyroidism TAKE 1 TABLET BY MOUTH ONCE DAILY BEFORE BREAKFAST 30 tablet 3 09/25/2024 Active Start: 08-06-2023 End: 08-06-2023 levothyroxine (SYNTHROID, LEVOTHROID) tablet 175 mcg Start: 08-05-2023 End: 10-19-2023 levothyroxine (SYNTHROID, LEVOTHROID) 175 MCG tablet Take 1 (one) tablet (175 mcg total) by mouth daily on an empty stomach, with water, 1 hr before food / drinks / meds, and 4 hrs apart from calcium, magnesium, iron, multivitamin supplements. Take double dose next day if miss one day . 30 tablet 11 10/08/2023 10/19/2023 Discontinued (Reorder (Suppress CancelRx Message to Pharmacy)) Start: 08-05-2023 End: 08-05-2023 levothyroxine (SYNTHROID, LEVOTHROID) tablet 88 mcg End: 03-02-2024 take 175 ug by mouth every other day in the morning, then take 200 ug by mouth every week, then take 175 ug by mouth every other day levothyroxine sodium (SYNTHROID ORAL) Take 175 mcg by mouth every other day in the morning. 200 mcg 3x/wk and 175mcg every other day. 0 03/02/2024 Discontinued levothyroxine so dium (SYNTHROID ORAL) Take by mouth. 0 Active lidocaine 0.05 mg/mg medicated patch (1 source) Antiarrhythmic, Amide Local Anesthetic Start: 04-27-2025 End: 05-04-2025 Lidoderm 5% topical patch Apply 1 patch(es), Topical, Daily, X 7 day(s), # 7 patch(es), 0 Refill(s), 113.6 Start Date: 04/27/25 Stop Date: 05/04/25 Status: Ordered Medication Dispense Status: Completed Quantity: 7.0 Unit: patch(es) Total Allowed Fills: 1 Fills Dispensed: 0 LORazepam 0.5 mg oral tablet (3 sources) Benzodiazepine Start: 05-27-2022 End: 06-03-2022 take 1 tablet by mouth twice daily LORazepam (ATIVAN) 0.5 mg Indications: Nausea , Anxiety with depression Take 1 tablet by mouth twice daily for 7 days. 14 tablet 0 05/27/2022 06/03/2022 Active Start: 10-23-2021 End: 10-30-2021 take 1 tablet by mouth twice daily as needed LORazepam (ATIVAN) 0.5 mg Indications: Anxiety with depression , Situational anxiety Take 1 tablet by mouth twice daily as needed for up to 7 days. 14 tablet 0 10/23/2021 10/30/2021 Comment on above: Take 1 tablet by juanito th twice daily as needed for up to 7 days. Take 1 tablet by juanito th twice daily for 7 days. magnesium oxide 400 mg oral tablet (8 sources) Start: 02-27-2025 End: 05-28-2025 take 1 tablet by mouth once daily magnesium oxide (MAG-OX) 400 mg (241.3 mg magnesium) tablet Indications: Anxiety and depression Take 1 (one) tablet (400 mg total) by mouth daily . 90 tablet 02/27/2025 05/28/2025 Active Start: 05-29-2024 End: 06-28-2024 take 1 tablet by mouth once daily magnesium oxide (MAG-OX) 400 mg (241.3 mg magnesium) tablet Take 1 (one) tablet (400 mg total) by mouth daily . 30 tablet 05/29/2024 Active magniesum oxide (1 source) Start: 05-15-2025 magniesum oxid e magniesum oxide, 0 Refill(s), 113.6 Start Date: 05/15/25 Status: Ordered Medication Dispense Status: Completed Total Allowed Fills: 1 Fills Dispensed: 0 1 ml medroxyPROGESTERone acetate 150 mg/ml prefilled syringe (20 sources) Progestin Start: 09-03-2021 End: 08-05-2022 medroxyPROGESTERone 150 mg injection (DEPO-PROVERA) Start: 09-03-2021 medroxyPROGEST ERone (DEPO-PROVERA) 150 mg/mL injection Indications: Menorrhagia with irregular cycle Inject 1 mL intramuscularly every 12 weeks. 1 mL 4 09/03/2021 Active Comment on above: Inject 1 mL intramus cularly every 12 weeks. methylPREDNISolone (3 sources) Corticosteroid Start : 01-10 End: 01-16 methylPREDNISolone (MEDROL, LAURA,) 4 mg Dose-Pack Indications: Acute right ankle pain , Pain in right foot , Calf swelling As instructed per package 21 tablet 0 01/11/2024 01/17/2024 Active naltrexone hydrochloride 50 mg oral tablet (2 sources) Opioid Antagonist Start : 09-10 naltrexone 50 mg oral tablet Dose : 50 mg = 1 tab(s), Oral, qDay, 0 Refill(s) Start Date: 09/10/16 Status: Ordered Medication Dispense Status: Completed Total Allowed Fills: 1 Fills Dispensed: 0 Naproxen (2 sources) Nonsteroidal Anti-inflammatory Drug NAPROXEN PO Take by mouth 0 Active 24 hr nicotine 0.875 mg/hr transdermal system (3 sources) Cholinergic Nicotinic Agonist Start : 10-19 End: 11-18 apply 1 dose transdermal route once daily nicotine (NICODERM CQ) 21 mg/24 hr Indications: Tobacco use Place 1 (one) patch on the skin daily . 28 patch 0 10/20/2023 11/19/2023 Active Start: 09-14-2016 take 1 dose by mouth every two hours as needed Nicorette 2 mg oral transmucosal gum 2 mg Dose = 1 EA, Chewed, q2h, PRN Nicotine craving, 0 Refill(s) Start Date: 09/14/16 Status: Ordered Medication Dispense Status: Completed Total Allowed Fills: 1 Fills Dispensed: 0 omeprazole 40 mg delayed release oral capsule (5 sources) Proton Pump Inhibitor Start: 04-08-2023 End: 04-07-2024 take 1 capsule by mouth once daily omeprazole (PRILOSEC) 40 MG capsule Take 1 (one) capsule (40 mg total) by mouth daily . 30 capsule 11 04/08/2023 04/07/2024 Active ondansetron 4 mg disintegrating oral tablet (20 sources) Serotonin-3 Receptor Antagonist Start: 05-15-2025 ondansetron 4 mg oral tablet, disintegrating 0 Refill(s) Start Date: 05/15/25 Status: Ordered Medication Dispense Status: Completed Total Allowed Fills: 1 Fills Dispensed: 0 Start: 03-02-2025 End: 03-09-2025 take 1 tablet by mouth every eight hours as needed for nausea ondansetron (ZOFRAN-ODT) 4 MG disintegrating tablet Dissolve 1 (one) tablet (4 mg total) on top of tongue every 8 (eight) hours as needed for nausea . 20 tablet 03/02/2025 03/09/2025 Active Start: 08-04-2023 End: 08-04-2023 take 4 mg intravenously every twenty-four hours as needed for nausea and vomiting 4 mg, Intravenous, Once as needed, nausea, vomiting, Starting on Wed08/04/23 at 1632, For 1 dose, PACU (only) Administer first as needed for nausea/vomiting, or as directed by anesthesia Start: 06-01-2023 End: 10-05-2023 take 1 tablet by mouth every eight hours as needed for nausea ondansetron (ZOFRAN) 8 MG tablet Take 1 (one) tablet (8 mg total) by mouth every 8 (eight) hours as needed for nausea (nausea or vomiting) . 20 tablet 2 06/01/2023 10/05/2023 Discontinued (Therapy completed) Start: 03-07-2023 End: 03-08-2023 ondansetron (ZOFRAN-ODT) disintegrating tablet 1 Each Start: 08-04-2021 End: 02-17-2022 take 1 tablet by mouth every six hours as needed for nausea ondansetron orally disintegrating (ZOFRAN ODT) 4 mg disintegrating tablet Indications: Nausea and vomiting, unspecified vomiting type Take 1 tablet by mouth every 6 hours as needed for nausea/vomiting. 30 tablet 2 08/04/2021 02/17/2022 Discontinued (Other) Comment on above: Take 1 tablet by juanito every 6 hours as needed for nausea/vomiting. paliperidone (2 sources) Atypical Antipsychotic Paliperid one (INVEGA PO) Take by mouth Bipolar disorder 0 Active pantoprazole 40 mg delayed release oral tablet (20 sources) Proton Pump Inhibitor Start: 05-15-20 End: 08-13-19 26 take 1 tablet by mouth once daily pantoprazole 40 mg oral enteric coated tablet Dose : 40 mg =, Oral, qDay, # 30 EA, 2 Refill(s), Pharmacy: [facility], 175, cm, 05/15/25 13:56:00 EDT, Height, kg, 05/15/25 13:56:00 EDT, Dosing Weight Start Date: 05/15/25 Stop Date: 08/13/25 Status: Ordered Medication Dispense Status: Completed Quantity: 30.0 Unit: EA Total Allowed Fills: 3 Fills Dispensed: 0 Start: 05-15-2025 take 1 dose by mouth once daily Protonix Oral, qDay, 0 Refill(s) Start Date: 05/15/25 Status: Ordered Medication Dispense Status: Completed Total Allowed Fills: 1 Fills Dispensed: 0 Start: 02-27-2025 take 1 tablet by juanito th twice daily pantoprazole (PROTONIX) 40 MG tablet Indications: Gastroesophageal reflux disease without esophagitis Take 1 (one) tablet (40 mg total) by mouth 2 (two) times a day . 180 tablet 02/27/2025 Active Start: 05-09-2024 take 1 tablet by juanito th twice daily pantoprazole (PROTONIX) 40 MG tablet Take 1 (one) tablet (40 mg total) by mouth 2 (two) times a day . 60 tablet 2 05/09/2024 Active Start: 06-01-2023 End: 08-06-2023 take 1 tablet by mouth twice daily pantoprazole (PROTONIX) 40 MG tablet Take 1 (one) tablet (40 mg total) by mouth 2 (two) times a day . 60 tablet 2 06/01/2023 Active Start: 09-11-2020 End: 04-08-[address] (PROTONIX) 4 0 mg tablet Indications: Gastroesophageal reflux disease, unspecified whether esophagitis present , Nausea and vomiting, unspecified vomiting type , Generalized abdominal pain In the morning, TAKE 1 TABLET DAILY ON EMPTY STOMACH 30 tablet 5 08/04/2021 Active Start: 09-10-2016 take 1 dose by mouth once daily pantoprazole Dose : 40 mg =, Oral, qDay, 0 Refill(s) Start Date: 09/10/16 Status: Ordered Medication Dispense Status: Completed Total Allowed Fills: 1 Fills Dispensed: 0 Comment on above: In the morning, TAKE 1 TABLET DAILY ON EMPTY STOMACH polyethylene glycol 3350 [id number] mg / potassium chloride 2970 mg / sodium bicarbonate 6740 mg / sodium chloride 5860 mg / sodium sulfate 72491 mg powder for oral solution (1 source) Osmotic Laxative Start: 04-08-2023 End: 04-08-2023 polyethylene glycol (GoLYTELY) 236-22.74-6.74 -5.86 gram solution Take 4,000 mL by mouth once for 1 dose . 4000 mL 0 04/08/2023 04/08/2023 Active potassium chloride 20 meq powder for oral solution (20 sources) Start: 05-15-2025 potassium chloride 20 mEq oral powder for reconstitution 0 Refill(s) Start Date: 05/15/25 Status: Ordered Medication Dispense Status: Completed Total Allowed Fills: 1 Fills Dispensed: 0 Start: 03-02-2025 End: 03-17-2025 take 40 mEq by mouth twice daily potassium chloride (K HOME-CON) 20 mEq packet Take 40 (forty) mEq by mouth 2 (two) times a day for 15 days . 60 packet 03/02/2025 03/17/2025 Active Start: 02-28-2025 take 20 mEq by mouth twice mindi ly potassium chloride (KLOR-CON) 20 mEq packet Take 20 (twenty) mEq by mouth 2 (two) times a day . 90 packet 02/28/2025 Active Start: 06-01-2024 take 20 mEq by mouth once juan y potassium chloride (KLOR-CON) 20 mEq packet Take 20 (twenty) mEq by mouth daily . 30 packet 1 06/01/2024 Active Start: 03-02-2024 End: 04-01-2024 take 20 mEq by mouth twice daily potassium chloride (K HOME-CON) 20 mEq packet Indications: Hypokalemia Take 20 mEq by mouth two times a day. 60 Packet 0 03/02/2024 04/01/2024 Active Start: 04-02-2023 End: 07-14-2023 take 20 mEq by mouth once daily potassium chloride (KL OR-CON) 20 mEq packet Indications: Hypokalemia Take 20 (twenty) mEq by mouth daily . 30 packet 0 06/14/2023 Active Start: 03-07-2023 End: 03-12-2023 take 1 tablet by mouth twice daily at mealtime Potassium chloride 20 MEQ Tab CR tablet Take 1 tablet by mouth 2 times daily with meals for 5 days. 10 tablet 0 03/07/2023 03/12/2023 Active Start: 04-13-2022 take 15 mL by mouth once daily potassium chloride 20 mEq/15 mL solution TAKE 15ML BY MOUTH DAILY 473 mL 2 04/13/2022 Active Start: 02-13-2022 End: 05-14-2022 take 15 mL by mouth once daily potassium chloride 20 m Eq/15 mL solution Take 15 mL by mouth once daily. 473 mL 2 02/13/2022 04/13/2022 Discontinued Start: 12-31-2021 Potassium Chlo ride (Pqo-Lvfu-Gpi M20) 20 mEq oral tablet, extended release Dose : 20 mEq = 1 tab(s), Oral, qDay, # 30 tab(s), 0 Refill(s) Start Date: 12/31/21 Status: Ordered Medication Dispense Status: Completed Quantity: 30.0 Unit: tab(s) Total Allowed Fills: 1 Fills Dispensed: 0 Start: 12-31-2021 Potassium Chlo ride (Jpd-Utcy-Jdj M20) 20 mEq oral tablet, extended release Dose : 20 mEq = 1 tab(s), Oral, qDay, # 30 tab(s), 0 Refill(s) Start Date: 12/31/21 Status: Ordered Start: 12-23-2021 End: 02-13-2022 take 1 tablet by mouth once daily at breakfast potassium chloride 20 mEq TbER Indications: Hypokalemia Take 1 tablet by mouth daily with breakfast. 90 tablet 1 12/23/2021 02/13/2022 Discontinued Start: 01-27-2021 End: 08-04-2021 take 1 tablet by mouth once daily potassium chloride ER (KLOR-CON M20) 20 mEq tablet Take 1 tablet by mouth once daily. 30 tablet 5 01/27/2021 08/04/2021 Discontinued Comment on above: Take 1 tablet by juanito th daily with breakfast. Take 15 mL by mouth once daily. TAKE 15ML BY MOUTH D AILY prazosin 1 mg oral capsule (14 sources) alpha-Adrenergic Risa Start: 05-15-2025 prazosin 1 mg oral capsule 0 Refill(s) Start Date: 05/15/25 Status: Ordered Medication Dispense Status: Completed Total Allowed Fills: 1 Fills Dispensed: 0 Start: 02-27-2025 take 1 capsule by [facility] once daily prazosin (MINIPRESS) 1 MG capsule Indications: Nightmare Take 1 (one) capsule (1 mg total) by mouth nightly . 90 capsule 02/27/2025 Active Start: 05-24-2024 End: 08-03-2024 take 1 capsule by mouth once daily prazosin (MINIPRESS) 1 MG capsule Indications: Nightmares Take 1 (one) capsule (1 mg total) by mouth nightly . 30 capsule 1 08/03/2024 Active Start: 12-24-2020 End: 08-04-2021 take 1 capsule by mouth once daily prazosin (MINIPRESS) 2 mg cap Take 2 mg by mouth once daily. 12/24/2020 08/04/2021 Discontinued Start: 09-10-2016 prazosin 5 mg oral capsule Dose : 5 mg = 1 cap(s), Oral, qHS, 0 Refill(s) Start Date: 09/10/16 Status: Ordered Medication Dispense Status: Completed Total Allowed Fills: 1 Fills Dispensed: 0 PRAZOSIN HCL PO Take by mouth 0 Active predniSONE 10 mg oral tablet (6 sources) Start: 02-22-2024 End: 03-09-2024 take 2 tablets by mouth once daily, then take 1 tablet by mouth once daily, then take 0.5 tablet by mouth once daily predniSONE (DELTASONE) 10 mg tablet Indications: Tenosynovitis of right ankle , Calf swelling , Paresthesia and pain of both upper extremities Take 2 tablets by mouth once daily for 4 days, THEN 1 tablet once daily for 4 days, THEN 0.5 tablets once daily for 8 days. 16 tablet 0 02/22/2024 03/09/2024 Active Start: 10-06-2021 End: 10-30-2021 predniSONE (DELTASONE) 10 mg tablet Take 6 pills (all at once) on day 1, 5 pills on day 2, 4 pills on day 3, 3 pills on day 4, 2 pills on day 5, and 1 pill on day 6. 21 tablet 0 10/06/2021 10/30/2021 Discontinued (Course of therapy completed) Comment on above: Take 6 pills (all at once) on day 1, 5 pills on day 2, 4 pills on day 3, 3 pills on day 4, 2 pills on day 5, and 1 pill on day 6. promethazine hydrochloride 25 mg oral tablet (20 sources) Phenothiazine Start: 11-01-19 take 1 tablet by mouth every six hours as needed promethazine (PHENERGAN) 25 MG tablet Take 1 (one) tablet (25 mg total) by mouth every 6 (six) hours as needed (headache, take with 1-2 benadryl to sleep) . 20 tablet 11/01/2023 Active Start: 03-07-2023 End: 03-07-2023 Promethazine (PHENERGAN) tab let 25 mg Start: 05-27-2022 End: 03-02-2024 take 1-2 tablets by mouth every eight hours as needed for nausea promethazine (PHENERGAN) 12.5 mg tablet Indications: Nausea , Generalized abdominal pain , Early satiety , Bloating Take 1-2 tablets by mouth every 8 hours as needed for nausea, vomiting 20 tablet 1 05/27/2022 03/02/2024 Discontinued Comment on above: Take 1-2 tablets by mouth every 8 hours as needed for nausea, vomiting propranolol hydrochloride 20 mg oral tablet (8 sources) beta-Adrenergic Risa Start: 12-31-2021 propranolol 20 mg oral tablet Dose : 20 mg = 1 tab(s), Oral, BID, # 180 tab(s), 0 Refill(s) Start Date: 12/31/21 Status: Ordered Medication Dispense Status: Completed Quantity: 180.0 Unit: tab(s) Total Allowed Fills: 1 Fills Dispensed: 0 Start: 10-30-2021 End: 11-29-2021 take 1 tablet by mouth twice daily propranolol (INDERAL) 20 mg tablet Take 1 tablet by mouth twice daily. 60 tablet 1 10/30/2021 Active Comment on above: Take 1 tablet by [facility] twice daily. 24 hr QUEtiapine 150 mg extended release oral tablet (7 sources) Atypical Antipsychotic Start: End: take 1 tablet by mouth once daily QUEtiapine (SEROQUEL XR) 150 mg 24 hr tablet Indications: Mood disorder (HCC) Take 1 (one) tablet (150 mg total) by mouth nightly . 30 tablet 1 08/04/2023 Active Start: 01-04-2021 End: 06-27-2021 take 1 tablet by mouth once daily QUEtiapine (SEROQUEL) 300 mg tablet Take 300 mg by mouth once daily. 01/04/2021 06/27/2021 Discontinued Start: 09-10-2016 SEROquel 400 m g oral tablet Dose : 400 mg = 1 tab(s), Oral, qHS, 0 Refill(s) Start Date: 09/10/16 Status: Ordered Medication Dispense Status: Completed Total Allowed Fills: 1 Fills Dispensed: 0 sucralfate 1000 mg oral tablet (10 sources) Aluminum Complex Start: 05-15-2025 sucralfate 1 g oral tablet 0 Refill(s) Start Date: 05/15/25 Status: Ordered Medication Dispense Status: Completed Total Allowed Fills: 1 Fills Dispensed: 0 Start: 02-27-2025 End: 05-28-2025 take 1 tablet by mouth four times daily before mealtime sucralfate (CARAFATE) 1 gram tablet Indications: Chronic nausea Take 1 (one) tablet (1 g total) by mouth 4 (four) times a day before meals . 120 tablet 2 02/27/2025 05/28/2025 Active Start: 04-08-2023 End: 06-01-2023 take 1 tablet by mouth four times daily before mealtime sucralfate (CARAFATE) 1 gram tablet Take 1 (one) tablet (1 g total) by mouth 4 (four) times a day before meals . 30 tablet 0 04/08/2023 06/01/2023 Discontinued (Therapy completed) topiramate (2 sources) Topiramate (TOPAMAX PO) Take by mouth 0 Active tranexamic acid 650 mg oral tablet (1 source) Antifibrinolytic Agent Start: 06-20-20 End: 06-25-20 take 2 tablets by mouth three times daily tranexamic acid (LYSTEDA) 650 mg tablet Indications: Abnormal uterine bleeding Take 2 (two) tablets (1,300 mg total) by mouth 3 (three) times a day for 5 days . 30 tablet 06/20/2024 06/25/2024 Active traZODone hydrochloride 50 mg oral tablet (20 sources) Serotonin Reuptake Inhibitor Start: 05-15-20 traZODone 50 mg oral tablet 0 Refill(s) Start Date: 05/15/25 Status: Ordered Medication Dispense Status: Completed Total Allowed Fills: 1 Fills Dispensed: 0 Start: 05-24-2024 End: 10-02-2024 traZODone (DESYREL) 50 MG ta blet Indications: Insomnia due to other mental disorder Take 1.5 (one and a half) tablets (75 mg total) by mouth nightly as needed for sleep . 45 tablet 1 08/03/2024 Active Start: 11-17-2023 End: 01-16-2024 traZODone (DESYREL) 50 MG ta blet Indications: Insomnia due to other mental disorder Take 1.5 (one and a half) tablets (75 mg total) by mouth nightly as needed for sleep . 45 tablet 1 11/17/2023 01/16/2024 Active Start: 09-21-2023 End: 11-18-2023 take 0.5 tablet by mouth once daily, then take 1 tablet by mouth once daily traZODone (DESYREL) 50 MG tablet Indications: Insomnia due to other mental disorder Take 0.5 (one-half) tablet (25 mg total) by mouth nightly AND 1 (one) tablet (50 mg total) nightly. 45 tablet 0 10/19/2023 11/18/2023 Active Start: 09-07-2023 take 0.5 tablet by m outh once daily as needed for sleep traZODone (DESYREL) 50 MG tablet Indications: Insomnia due to other mental disorder Take 0.5 (one-half) tablet (25 mg total) by mouth nightly as needed for sleep . May take with one of the 50-mg trazodone tablets nightly for sleep . 30 tablet 1 09/07/2023 Active Start: 08-17-2023 take 1 tablet by juanito th once daily as needed for sleep traZODone (DESYREL) 50 MG tablet Indications: Insomnia due to other mental disorder Take 1 (one) tablet (50 mg total) by mouth nightly as needed for sleep . 30 tablet 1 08/17/2023 Active Start: 09-10-2016 traZODone 100 mg oral tablet Dose : 100 mg = 1 tab(s), Oral, qHS, 0 Refill(s) Start Date: 09/10/16 Status: Ordered Medication Dispense Status: Completed Total Allowed Fills: 1 Fills Dispensed: 0 trazodone HCl (T RAZODONE ORAL) Take by mouth. 0 Active vitamin b12 1 mg/ml injectable solution (20 sources) Vitamin B12 Start: 12-14-2024 inject 1 mL by subcutaneous injection every 30 days cyanocobalamin (B-12) 1,000 mcg/mL injection Indications: B12 deficiency Inject 1 mL (1,000 mcg total) under the skin every 30 (thirty) days . 1 mL 2 12/14/2024 Active take 1 tablet by mouth once juan y cyanocobalamin (VITAMIN B-12) 1,000 mcg tab Take 1,000 mcg by mouth once daily. Active Comment on above: Take 1,000 mcg by [facility] once daily. Completed/Discontinued Medications Medication Drug Class(es) Dates Sig (Normalized) Sig (Original) acetaminophen 325 mg / oxyCODONE hydrochloride 5 mg oral tablet (2 sources) Opioid Agonist Start: 05-07-2023 End: 05-14-2023 oxyCODONE-acetami nophen (PERCOCET) 5-325 mg per tablet Indications: Bilateral carpal tunnel syndrome Take 1 (one) tablet by mouth every 6 (six) hours as needed for pain (Days supply per fill: 5) . 20 tablet 0 05/07/2023 05/14/2023 baclofen 20 mg oral tablet (2 sources) gamma-Aminobutyr ic Acid-ergic Agonist Start: 04-27-2025 End: 05-02-2025 baclofen 20 mg oral tablet Dose : 20 mg = 1 tab(s), Oral, TID, # 15 tab(s), 0 Refill(s) Start Date: 04/27/25 Stop Date: 05/02/25 Status: Ordered Medication Dispense Status: Completed Quantity: 15.0 Unit: tab(s) Total Allowed Fills: 1 Fills Dispensed: 0 calcium chloride 0.0014 meq/ml / potassium chloride 0.004 meq/ml / sodium chloride 0.103 meq/ml / sodium lactate 0.028 meq/ml injectable solution (2 sources) Start: 08-04-2023 End: 08-05-2023 take 50 mL intravenously every hour 50 mL/hr, Intravenous, Continuous, Starting on Wed08/04/23 at 1730, PACU (only) Start: 08-04-2023 End: 08-05-2023 lactated Ringers infusion calcium polycarbophil 625 mg oral tablet (1 source) Start: 02-27-2025 End: 03-07-2025 take 1 tablet by mouth once daily polycarbophil (FIBERCON) 625 mg tablet Indications: Diarrhea, unspecified type Take 1 (one) tablet (625 mg total) by mouth daily . 30 tablet 2 02/27/2025 03/07/2025 Discontinued (Alternate therapy) cephalexin 50 mg/ml oral suspension (3 sources) Cephalosporin Antibacterial Start: 01-01-2022 End: 02-17-2022 take 10 mL by mouth twice daily cephALEXin (KEFLEX) 250 mg/5 mL suspension TAKE 10 ML BY MOUTH TWICE DAILY FOR 7 DAYS, DISCRAD REMAINDER. 0 01/01/2022 02/17/2022 Discontinued (Other) Comment on above: TAKE 10 ML BY MOUTH TWICE DAILY FOR 7 DAYS, DISCRAD REMAINDER. cosyntropin (CORTROSYN) IV Push 0.25 mg (2 sources) Start: 07-14-2023 End: 07-14-2023 cosyntropin (CORTROSYN) IV Push 0.25 mg dicyclomine hydrochloride 20 mg oral tablet (20 sources) Anticholinergic Start: 06-01-2023 End: 05-31-2024 take 1 tablet by mouth four times daily as needed dicyclomine (BENTYL) 20 mg tablet Take 1 (one) tablet (20 mg total) by mouth 4 (four) times a day as needed . 120 tablet 5 06/01/2023 10/05/2023 Discontinued (Patient's Request) Start: 03-07-2023 End: 03-07-2023 Dicyclomine (BENTYL) capsule 10 mg docusate sodium 50 mg / sennosides, shelter 8.6 mg oral tablet (1 source) Start: 08-04-2023 End: 08-06-2023 take 1 tablet by mouth twice daily 1 tablet, Oral, 2 times daily, First dose on Wed08/04/23 at 2200 NOT for abdominal surgery patients. Hold for loose stools. Do Not Crush or Chew if administering orally due to bitter taste. May be crushed if given via tube. DULoxetine 60 mg delayed release oral capsule (1 source) Serotonin and Norepinephrine Reuptake Inhibitor Start: 11-14-2020 End: 02-13-2021 take 1 capsule by mouth once daily DULoxetine (CYMBALTA) 60 mg capsule Indications: Anxiety with depression Take 1 capsule by mouth once daily. 30 capsule 2 11/14/2020 02/13/2021 Discontinued 0.3 ml enoxaparin sodium 100 mg/ml prefilled syringe (2 sources) Low Molecular Weight Heparin Start: 08-05-2023 End: 08-06-2023 inject 30 mg by subcutaneous injection once daily 30 mg, Subcutaneous, Daily, First dose on Jenny 08/05/23 at 0900 Administer in abdomen unless otherwise directed by prescriber. Notify physician if patient refuses. Indication: VTE Prophylaxis Start: 08-04-2023 End: 08-04-2023 enoxaparin (LOVENOX) syringe 40 mg Ethinyl Estradiol / Levonorgestrel (4 sources) Progestin, Estrogen, Progestin-containing Intrauterine Device Start: 11-05-2023 End: 06-20-2024 take 1 tablet by mouth once daily levonorgestrel-ethinyl estradiol (AVIANE,ALESSE,LESSINA) 0.1-20 mg-mcg per tablet Indications: Breakthrough bleeding on Nexplanon Take 1 (one) tablet by mouth daily . 30 tablet 1 11/05/2023 06/20/2024 Discontinued (Patient Discharge) Start: 11-05-2023 End: 11-04-2024 take 1 tablet by mouth once daily levonorgestrel-ethinyl estradiol (AVIANE,ALESSE,LESSINA) 0.1-20 mg-mcg per tablet Indications: Breakthrough bleeding on Nexplanon Take 1 (one) tablet by mouth daily . 30 tablet 1 11/05/2023 11/04/2024 Active etonogestrel 68 mg drug implant (14 sources) Progestin Start: 09-28-2023 End: 09-28-2023 etonogestreL (NEXPLANON) 68 mg subdermal implant 68 mg Start: 09-28-2023 End: 09-28-2023 etonogestreL (NEXPLANON) 68 mg subdermal implant 68 mg etonogestrel (NE XPLANON) 68 mg impl subdermal implant 68 mg by SUBDERMAL route. Active fentaNYL (SUBLIMAZE) inj syringe 25 mcg (1 source) Start: 08-04-2023 End: 08-04-2023 25 mcg, Intravenous, Every 5 min PRN, Pain, Starting on Wed08/04/23 at 1632, For 12 doses, PACU (only) [] Do not give more than 300 mcg while in PACU. Gatorade Sports Drink (8 sources) Start: 10-15-2021 Gatorade Sports Drink Use as directed for Miralax / Gatorade Bowel Prep Kit 0 10/15/2021 Active Comment on above: Use as directed for Miralax / Gatorade Bowel Prep Kit hydroCHLOROthiazide 12.5 mg oral capsule (1 source) Thiazide Diuretic Start: 12-09-2020 End: 06-27-2021 take 1 capsule by mouth once daily hydroCHLOROthiazide 12.5 mg capsule Indications: Essential hypertension Take 1 capsule by mouth once daily. 30 capsule 12 12/09/2020 06/27/2021 Discontinued 0.5 ml HYDROmorphone hydrochloride 1 mg/ml prefilled syringe (2 sources) Opioid Agonist Start: 08-04-2023 End: 08-06-2023 take 0.25 mg intravenously every three hours as needed 0.25 mg, Intravenous, Every 3 hours PRN (may repeat), moderate to severe pain, Starting on Wed08/04/23 at 2015 Initiate with 0.25 mg IV every 3 hours prn moderate to severe pain. For unrelieved pain, may repeat 0.25 mg within 30 minutes of initial dose. Start: 08-04-2023 End: 08-04-2023 0.25 mg, Intravenous, Every 5 min PRN, Pain, Starting on Wed08/04/23 at 1632, For 8 doses, PACU (only) Give if fentanyl not effective or not ordered. Do not give more than 2 mg total. lisinopril 20 mg oral tablet (1 source) Angiotensin Converting Enzyme Inhibitor Start: 11-14-2020 End: 06-27-2021 take 1 tablet by mouth once daily lisinopril (ZESTRIL, PRINIVIL) 20 mg tablet Indications: Essential hypertension Take 1 tablet by mouth once daily. 30 tablet 11/14/2020 06/27/2021 Discontinued medroxyPROGESTERone 150 mg/mL intramuscular suspension (2 sources) Start: 12-31-2021 inject 1 mL by intramuscular injection every three months medroxyPROGESTERone 150 mg/mL intramuscular suspension Dose : 150 mg = 1 mL, Intramuscular, q3mo, # 1 mL, 0 Refill(s) Start Date: 12/31/21 Status: Ordered Medication Dispense Status: Completed Quantity: 1.0 Unit: mL Total Allowed Fills: 1 Fills Dispensed: 0 Start: 12-31-2021 inject 1 mL by intra muscular injection every three months medroxyPROGESTERone 150 mg/mL intramuscular suspension Dose : 150 mg = 1 mL, Intramuscular, q3mo, # 1 mL, 0 Refill(s) Start Date: 12/31/21 Status: Ordered meloxicam 15 mg oral tablet (12 sources) Nonsteroidal Anti-inflammatory Drug Start: 04-27-2023 End: 04-26-2024 take 1 tablet by mouth once daily meloxicam (MOBIC) 15 MG tablet Indications: Radiculopathy, unspecified spinal region Take 1 (one) tablet (15 mg total) by mouth daily . 30 tablet 11 04/27/2023 07/14/2023 Discontinued (Ineffective) metoclopramide 5 mg oral tablet (1 source) Dopamine-2 Receptor Antagonist Start: 02-27-2025 End: 03-07-2025 take 1 tablet by mouth three times daily metoclopramide (REGLAN) 5 MG tablet Indications: Chronic nausea Take 1 (one) tablet (5 mg total) by mouth 3 (three) times a day . 90 tablet 02/27/2025 03/07/2025 Discontinued 5 ml midazolam 1 mg/ml injection (1 source) Benzodiazepine Start: 08-04-2023 End: 08-04-2023 midazolam (VERSED) injection 2 mg Start: 08-04-2023 End: 08-04-2023 midazolam (VERSED) injection 2 mg naloxone (NARCAN) injection 0.1 mg (1 source) Start: 08-04-2023 End: 08-06-2023 naloxone (NARCAN) injection 0.1 mg ondansetron (ZOFRAN-ODT) disintegrating tablet 4 mg (1 source) Start: 08-04-2023 End: 08-06-2023 take 1 tablet by mouth every six hours as needed for nausea and vomiting ondansetron (ZOFRAN-ODT) disintegrating tablet 4 mg perflutren lipid microspheres 1.3 mL in NaCl (PF) 0.9% 10 mL injection (DEFINITY) (20 sources) Start: 11-14-2020 End: 02-13-2022 perflutren lipid microspheres 1.3 mL in NaCl (PF) 0.9% 10 mL injection (DEFINITY) [id number] a3-dha 18 mg iron-800 mcg-290 mg cppt (20 sources) End: 03-02-2024 [id number] ga3-dha 18 mg iron-800 mcg-290 mg cppt Take by mouth. 0 03/02/2024 Discontinued [id number] xmo--[id number] 18 mg iron-800 mcg-290 mg cppt Take by mouth. 0 Active Comment on above: Take by mouth. polyethylene glycol 3350 44962 mg powder for oral solution (8 sources) Osmotic Laxative Start: 10-15-2021 polyethylene glycol 3350 (MIRALAX, GLYCOLAX) 17 gram/dose powder Use as directed for Miralax / Gatorade Bowel Prep Kit 238 g 0 10/15/2021 Active Comment on above: Use as directed for Miralax / Gatorade Bowel Prep Kit potassium bicarbonate 25 meq effervescent oral tablet (1 source) Start: 03-07-2023 End: 03-07-2023 potassium bicarbonate (EFFER-K) effervescent tablet 50 mEq POTASSIUM-99 ORAL (20 sources) End: 03-02-2024 POTASSIUM-99 ORAL Take by mouth. 0 03/02/2024 Discontinued POTASSIUM-99 ORA L Take by mouth. 0 Active Comment on above: Take by mouth. 1000 ml sodium chloride 9 mg/ml injection (20 sources) Start: 08-04-2023 End: 08-05-2023 take 30 mL intravenously every hour 30 mL/hr, Intravenous, Continuous, Starting on Wed08/04/23 at 2115 Start: 11-14-2020 End: 02-13-2022 sodium chloride 0.9 % (flush ) 10 mL (BD POSIFLUSH) Problems Active Problems Problem Classification Problem Date Documented Da te Episodic/Chronic Abdominal pain (20 sources) Chronic pelvic pain of female; Translations: [Pelvic and perineal pain] Onset: 3 Resolved: 4 Episodic Anal and rectal conditions (2 sources) Proctoptosis; Translations: [Anal prolapse] Episodic Anxiety disorders (20 sources) Generalized anxiety disorder; Translations: [Generalized anxiety disorder] Onset: 2 Chronic Calculus of urinary tract (2 sources) Calculus of kidney; Translations: [Calculus of kidney] Onset: 5 Episodic Cancer of thyroid (3 sources) Malignant tumor of thyroid gland; Translations: [Malignant neoplasm of thyroid gland] Onset: 4 10-19-2023 Chronic Cancer of thyroid (1 source) History of malignant neoplasm of thyroid 05-15-2025 Episodic Chronic obstructive pulmonary disease and bronchiectasis (2 sources) Mucopurulent chronic bronchitis; Translations: [Mucopurulent chronic bronchitis] Onset: 5 Chronic Complications of surgical procedures or medical care (4 sources) Postoperative hypothyroidism; Translations: [Postprocedural hypothyroidism] Onset: 4 02-22-2024 Chronic Complications of surgical procedures or medical care (1 source) 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 Episodic Contraceptive and procreative management (4 sources) Patient encounter status; Translations: [Encounter for surveillance of injectable contraceptive] Episodic Disorders of lipid metabolism (20 sources) Hypercholesterolemia; Translations: [Hypertriglyceridemia] Onset: 6 03-11-2020 Chronic Esophageal disorders (20 sources) Gastroesophageal reflux disease; Translations: [Gastro-esophageal reflux disease without esophagitis] Onset: 1 Resolved: 1 03-11-2020 Chronic Essential hypertension (20 sources) Essential hypertension; Translations: [Essential (primary) hypertension] Onset: 1 09-20-2020 Chronic Gastritis and duodenitis (3 sources) Helicobacter pylori-associated gastritis; Translations: [Gastritis, unspecified, without bleeding] Episodic Genitourinary symptoms and ill-defined conditions (1 source) Hematuria, unspecified; Translations: [Hematuria, unspecified] Onset: 2 Episodic Menstrual disorders (20 sources) Amenorrhea; Translations: [Amenorrhea, unspecified] Onset: 4 10-30-2013 Chronic Miscellaneous mental health disorders (1 source) Hypochondriasis; Translations: [Other hypochondriacal disorders] Chronic Mood disorders (20 sources) Depressive disorder; Translations: [Depression] Onset: 1 12-17-2010 Chronic Nausea and vomiting (13 sources) Nausea and vomiting; Translations: [Nausea with vomiting, unspecified] Onset: 4 Episodic Nonmalignant breast conditions (1 source) Pain of breast; Translations: [Mastodynia] Episodic Nonspecific chest pain (4 sources) Chest pain, unspecified; Translations: [Other chest pain] Onset: 3 Episodic Nutritional deficiencies (20 sources) Vitamin D deficiency; Translations: [Vitamin D deficiency, unspecified] Onset: 3 11-07-2012 Chronic Nutritional deficiencies (4 sources) Cobalamin deficiency; Translations: [Deficiency of other specified B group vitamins] Episodic Osteoarthritis (3 sources) Arthritis 09-10-2016 Chronic Other aftercare (1 source) Marijuana user; Translations: [Other intermediate (current) drug therapy] Episodic Other aftercare (4 sources) Surgical follow-up; Translations: [Aftercare following surgery for neoplasm] 08-13-2023 Episodic Other connective tissue disease (3 sources) Fibromyositis 09-10-2016 Episodic Other connective tissue disease (1 source) Pain in right foot; Translations: [Pain in right foot] 01-11-2024 Episodic Other connective tissue disease (3 sources) Swollen calf; Translations: [Other specified soft tissue disorders] 01-11-2024 Episodic Other connective tissue disease (1 source) Tenosynovitis of right ankle; Translations: [Synovitis and tenosynovitis, unspecified] 02-22-2024 Episodic Other connective tissue disease (1 source) Synovitis and tenosynovitis, unspecified; Translations: [Tenosynovitis of right ankle] Onset: 4 Episodic Other connective tissue disease (1 source) Peroneal tendinitis, right leg; Translations: [Peroneal tendinitis of lower leg, right] Onset: 4 Episodic Other female genital disorders (1 source) Deep pain on intercourse; Translations: [Deep dyspareunia] Chronic Other female genital disorders (10 sources) Abnormal uterine bleeding; Translations: [Abnormal uterine and vaginal bleeding, unspecified] Onset: 5 Chronic Other female genital disorders (5 sources) Abnormal uterine and vaginal bleeding, unspecified; Translations: [Abnormal uterine and vaginal bleeding, unspecified] Onset: 2 Chronic Other gastrointestinal disorders (1 source) Irritable bowel syndrome; Translations: [Irritable bowel syndrome without diarrhea] 10-05-2023 Chronic Other gastrointestinal disorders (20 sources) Diarrhea; Translations: [Diarrhea, unspecified] Onset: 3 Resolved: 4 Episodic Other gastrointestinal disorders (1 source) Constipation, unspecified; Translations: [Constipation, unspecified] Onset: 2 Episodic Other gastrointestinal disorders (1 source) Abdominal bloating; Translations: [Abdominal distension (gaseous)] Episodic Other gastrointestinal disorders (3 sources) Dysphagia; Translations: [Dysphagia, unspecified] Onset: 5 08-03-2023 Episodic Other gastrointestinal disorders (1 source) Swallowing painful; Translations: [Dysphagia, unspecified] 08-03-2023 Episodic Other gastrointestinal disorders (4 sources) Oropharyngeal dysphagia; Translations: [Dysphagia, oropharyngeal phase] 08-30-2023 Episodic Other gastrointestinal disorders (4 sources) Dysphagia, unspecified; Translations: [Dysphagia, unspecified] Onset: 5 Episodic Other gastrointestinal disorders (4 sources) Diarrhea, unspecified; Translations: [Diarrhea, unspecified] Onset: 5 Episodic Other lower respiratory disease (1 source) Dyspnea; Translations: [Shortness of breath] 02-05-2021 Episodic Other nervous system disorders (20 sources) Bilateral carpal tunnel syndrome; Translations: [Carpal tunnel syndrome, bilateral upper limbs] Onset: 3 Chronic Other nervous system disorders (1 source) Pain in limb - multiple; Translations: [Paresthesia of skin] 02-22-2024 Episodic Other non-traumatic joint disorders (2 sources) Acute ankle pain; Translations: [Pain in right ankle and joints of right foot] 01-11-2024 Episodic Other non-traumatic joint disorders (1 source) Pain in right ankle and joints of right foot; Translations: [Acute right ankle pain] Onset: 4 Episodic Other nutritional; endocrine; and metabolic disorders (2 sources) Morbid obesity; Translations: [Morbid (severe) obesity due to excess calories] Onset: 0 03-07-2020 Chronic Other nutritional; endocrine; and metabolic disorders (2 sources) Severe obesity; Translations: [Morbid (severe) obesity due to excess calories] Onset: 0 03-11-2020 Chronic Other nutritional; endocrine; and metabolic disorders (9 sources) Obese class II; Translations: [Obesity, unspecified] Onset: 4 03-02-2024 Chronic Other nutritional; endocrine; and metabolic disorders (1 source) Obesity, unspecified; Translations: [Obesity, Class II, BMI 35-39.9] Onset: 4 Chronic Other nutritional; endocrine; and metabolic disorders (2 sources) Abnormal weight loss; Translations: [Abnormal weight loss] Episodic Other nutritional; endocrine; and metabolic disorders (1 source) Personal history of other endocrine, nutritional and metabolic disease; Translations: [History of hypothyroidism] Onset: 4 Episodic Other screening for suspected conditions (not mental disorders or infectious disease) (2 sources) Cancer cervix screening status; Translations: [Encounter for screening for malignant neoplasm of cervix] Episodic Other upper respiratory disease (2 sources) Disorder of the larynx; Translations: [Paralysis of vocal cords and larynx, unilateral] 08-30-2023 Chronic Other upper respiratory disease (1 source) Vocal cord paralysis 05-15-2025 Chronic Other upper respiratory disease (1 source) Feeling of lump in throat; Translations: [Globus sensation] 08-03-2023 Episodic Other upper respiratory disease (5 sources) Vocal fatigue; Translations: [Other voice and resonance disorders] 08-13-2023 Episodic Other upper respiratory disease (2 sources) Pain in throat; Translations: [Pain in throat] 08-14-2024 Episodic Personality disorders (20 sources) Borderline personality disorder; Translations: [Borderline personality disorder] Onset: 2 Chronic Residual codes; unclassified (20 sources) Obstructive sleep apnea syndrome; Translations: [Obstructive sleep apnea (adult) (pediatric)] Onset: 3 03-11-2020 Chronic Residual codes; unclassified (3 sources) Sleep apnea 09-10-2016 Chronic Residual codes; unclassified (1 source) Obstructive sleep apnea (adult) (pediatric); Translations: [AGUSTO (obstructive sleep apnea)] Onset: 1 Chronic Residual codes; unclassified (2 sources) Early satiety; Translations: [Early satiety] Episodic Residual codes; unclassified (2 sources) Pain; Translations: [Pain, unspecified] 01-11-2024 Episodic Residual codes; unclassified (1 source) Pain, unspecified; Translations: [Pain] Onset: 4 Episodic Schizophrenia and other psychotic disorders (20 sources) Schizoaffective schizophrenia; Translations: [Schizoaffective disorder, unspecified] Onset: 3 10-28-2022 Chronic Spondylosis; intervertebral disc disorders; other back problems (3 sources) Degeneration of lumbar intervertebral disc; Translations: [Other intervertebral disc degeneration, lumbar region] 04-27-2023 Chronic Substance-related disorders (20 sources) Psychoactive substance abuse; Translations: [Cannabis abuse, uncomplicated] Onset: 6 06-03-2016 Chronic Syncope (2 sources) Syncope and collapse; Translations: [Syncope and collapse] Onset: 5 Episodic Thyroid disorders (20 sources) Nontoxic single thyroid nodule; Translations: [Thyroid nodule] Onset: 8 06-09-2018 Chronic Unclassified (1 source) VAGINAL BLEEDING, DYSURIA Onset: 2 Unclassified (2 sources) Consult Onset: 5 Unclassified (1 source) Bipolar (qualifier value) 05-15-2025 Unclassified (1 source) First encounter by subject 05-15-2025 Urinary tract infections (1 source) Urinary tract infection, site not specified; Translations: [Urinary tract infection, site not specified] Onset: 2 Episodic Past or Other Problems Problem Classification Problem Date Documented Date Episodic/Chronic Cardiac dysrhythmias (2 sources) Palpitations; Translations: [Palpitations] Onset: 08-02-2024 Episodic Deficiency and other anemia (3 sources) Anemia; Translations: [Anemia, unspecified] Onset: 08-31-2024 08-31-2024 Episodic Deficiency and other anemia (2 sources) Anemia, unspecified; Translations: [Anemia, unspecified] Onset: 08-31-2024 Episodic Diabetes mellitus without complication (20 sources) Impaired fasting glycemia; Translations: [Impaired fasting glucose] Onset: 03-03-2016 03-03-2016 Episodic Fluid and electrolyte disorders (12 sources) Hypokalemia; Translations: [Hypokalemia] Onset: 06-24-2022 Episodic Headache; including migraine (20 sources) Acute headache; Translations: [Acute nonintractable headache, unspecified headache type] Onset: 12-09-2021 Episodic Malaise and fatigue (20 sources) Fatigue; Translations: [Other fatigue] Onset: 07-08-2023 Episodic Mood disorders (14 sources) Mood disorders; Translations: [Depression, unspecified] Onset: 05-03-2023 Resolved: 09-08-2023 Other complications of (17 sources) Supervision of other high risk pregnancies, unspecified trimester; Translations: [Supervision of other high-risk ] Onset: 07-02-2009 Resolved: 03-18-2010 03-18-2010 Episodic Other complications of (17 sources) Reduced movement; Translations: [Decreased movements, unspecified trimester, not applicable or unspecified] Onset: 09-05-2009 Resolved: 03-18-2010 03-18-2010 Episodic Other connective tissue disease (20 sources) Plantar fascial fibromatosis; Translations: [Plantar fascial fibromatosis] Onset: 04-05-2012 04-05-2012 Episodic Other connective tissue disease (20 sources) Myofascial pain syndrome; Translations: [Myalgia, other site] Onset: 08-12-2016 08-12-2016 Episodic Other connective tissue disease (20 sources) Muscle pain; Translations: [Myalgia, unspecified site] Onset: 07-13-2017 07-13-2017 Episodic Other connective tissue disease (4 sources) Other specified soft tissue disorders; Translations: [Calf swelling] Onset: 01-11-2024 Episodic Other nervous system disorders (20 sources) Word finding difficulty ; Translations: [Other speech disturbances] Onset: 12-09-2021 12-09-2021 Episodic Other nervous system disorders (20 sources) Paresthesia of lower extremity; Translations: [Paresthesia of skin] Onset: 12-09-2021 12-09-2021 Episodic Other nervous system disorders (2 sources) Paresthesia of skin; Translations: [Disturbance of skin sensation] Onset: 03-02-2024 03-02-2024 Episodic Other non-traumatic joint disorders (20 sources) Pain in lower limb; Translations: [Pain in unspecified knee] Onset: 12-09-2006 12-09-2006 Episodic Other nutritional; endocrine; and metabolic disorders (20 sources) Body mass index 40+ - severely obese; Translations: [Morbid (severe) obesity due to excess calories] Onset: 12-09-2006 Resolved: 02-23-2022 10-26-2017 Chronic Other nutritional; endocrine; and metabolic disorders (20 sources) Unintentional weight loss; Translations: [Abnormal weight loss] Onset: 04-08-2023 Episodic Other upper respiratory disease (2 sources) Pain in throat; Translations: [Pain in throat] Onset: 08-14-2024 Episodic Other upper respiratory disease (2 sources) Other voice and resonance disorders; Translations: [Other voice and resonance disorders] Onset: 08-14-2024 Episodic Pleurisy; pneumothorax; pulmonary collapse (20 sources) Pleural effusion; Translations: [Pleural effusion, not elsewhere classified] Onset: 06-27-2008 07-10-2008 Episodic Residual codes; unclassified (20 sources) Memory impairment; Translations: [Other amnesia] Onset: 12-09-2021 12-09-2021 Episodic Residual codes; unclassified (2 sources) Personal history of other drug therapy; Translations: [Personal history of other drug therapy] Onset: 08-17-2023 Episodic Residual codes; unclassified (1 source) Tobacco use; Translations: [Tobacco use] Onset: 03-02-2024 Episodic Spondylosis; intervertebral disc disorders; other back problems (20 sources) Low back pain; Translations: [Neck pain] Onset: 08-12-2016 03-11-2020 Episodic Sprains and strains (20 sources) Sprain of ligament of lumbosacral joint; Translations: [Sprain of unspecified parts of lumbar spine and pelvis, initial encounter] Onset: 05-31-2023 04-27-2023 Episodic Suicide and intentional self-inflicted injury (2 sources) Suicidal ideations; Translations: [Suicidal ideations] Onset: 09-07-2023 Episodic Superficial injury; contusion (2 sources) Contusion of left elbow, initial encounter; Translations: [Contusion of left elbow, initial encounter] Onset: 05-23-2023 Episodic Results Test Name Value Interpretation Reference Range Facility .Auto Diffon 05-15-2025 Basophil, Absolute 0.1 10 3/mcL Normal 0.0-0.3 [facility] Comment on above: Performed By: #### A WOLF, FE, ADIFF, CBC, IBC, GFR, CMP #### [address] [id number] Basophils/100 WBC (Bld) 0.7 % Normal 0.0-2.5 [facility] Comment on above: Performed By: #### A WOLF, FE, ADIFF, CBC, IBC, GFR, CMP #### [address] [address] Eosinophil, Absolute 0.1 10 3/mcL Normal 0.0-0.7 [facility] Comment on above: Performed By: #### A WOLF, FE, ADIFF, CBC, IBC, GFR, CMP #### [address] [address] Eosinophils/100 WBC (Bld) 1.9 % Normal 0.0-6.0 [facility] Comment on above: Performed By: #### A WOLF, FE, ADIFF, CBC, IBC, GFR, CMP #### [address] [address] Lymphocyte, Absolute 1.7 10 3/mcL Normal 0.9-4.3 [facility] Comment on above: Performed By: #### A WOLF, FE, ADIFF, CBC, IBC, GFR, CMP #### [address] [address] Lymphocytes/100 WBC (Bld) 21.7 % Normal 20.0-40.0 [facility] Comment on above: Performed By: #### A WOLF, FE, ADIFF, CBC, IBC, GFR, CMP #### [address] [address] Monocyte, Absolute 0.6 10 3/mcL Normal 0.1-1.4 [facility] Comment on above: Performed By: #### A WOLF, FE, ADIFF, CBC, IBC, GFR, CMP #### [address] [address] Monocytes/100 WBC (Bld) 7.1 % Normal 2.0-13.0 [facility] Comment on above: Performed By: #### A WOLF, FE, ADIFF, CBC, IBC, GFR, CMP #### [address] [address] Neutrophils/100 WBC (Bld) 68.6 % Normal 50.0-75.0 [facility] Comment on above: Performed By: #### A WOLF, FE, ADIFF, CBC, IBC, GFR, CMP #### [address] [address] .GFRon 05-15-2025 Estimated Glomerular Filtration Rate 96 ml/min/1.73sqm Normal [facility] Comment on above: Result Comment: Stages of Chronic Kidney Disease (CKD) Stage Description eGFR(ml/min/1.73 sq.m.) CKD 1 Normal kidney function or >=90 normal kindney function with possible kidney damage (ex. Proteinuria) CKD 2 Kidney damage with mild loss 60-89 of kidney function CKD 3a Mild to moderate loss of kidney 45-59 function CKD 3b Moderate to severe loss of 30-44 of kindey function CKD 4 Severe loss of kidney function 15-29 CKD 5 Kidney failure <15 Note: (go live 2024) the eGFR calculation was updated to the 2020 CKD-EPI creatinine equation without a race factor to calculate the eGFR results. Performed By: #### A WOLF, FE, ADIFF, CBC, IBC, GFR, CMP #### [address] [address] .NEUABSon 05-15-2025 Neutrophil, Absolute 5.4 10 3/mcL Normal 2.3-8.1 [facility] Comment on above: Performed By: #### A WOLF, FE, ADIFF, CBC, IBC, GFR, CMP #### [address] [address] CBCon 05-15-2025 Erythrocyte distribution width (RBC) [Ratio] 13.4 % Normal 11.5-15.5 [facility] Comment on above: Performed By: #### A WOLF, FE, ADIFF, CBC, IBC, GFR, CMP #### [place] [address] Hematocrit (Bld) [Volume fraction] 40.8 % Normal 34.0-46.0 [facility] Comment on above: Performed By: #### A WOLF, FE, ADIFF, CBC, IBC, GFR, CMP #### [place] [address] Hgb 14.0 G/dL Normal 12.0-16.0 [facility] Comment on above: Performed By: #### A WOLF, FE, ADIFF, CBC, IBC, GFR, CMP #### [place] [address] MCH (RBC) [Entitic mass] 31.4 pg Normal 27.0-33.0 [facility] Comment on above: Performed By: #### A WOLF, FE, ADIFF, CBC, IBC, GFR, CMP #### [place] [address] MCHC 34.2 G/dL Normal 32.0-36.0 [facility] Comment on above: Performed By: #### A WOLF, FE, ADIFF, CBC, IBC, GFR, CMP #### [place] [address] MCV (RBC) [Entitic vol] 91.8 fL Normal 80.0-99.0 [facility] Comment on above: Performed By: #### A WOLF, FE, ADIFF, CBC, IBC, GFR, CMP #### [place] [id number] Platelet 307 10 3/mcL Normal 150-450 [facility] Comment on above: Performed By: #### A WOLF, FE, ADIFF, CBC, IBC, GFR, CMP #### [place] [id number] Platelet mean volume (Bld) [Entitic vol] 8.8 fL Normal 6.6-10.5 [facility] Comment on above: Performed By: #### A WOLF, FE, ADIFF, CBC, IBC, GFR, CMP #### [address] [address] RBC 4.44 10 6/mcL Normal 4.10-5.30 [facility] Comment on above: Performed By: #### A WOLF, FE, ADIFF, CBC, IBC, GFR, CMP #### [address] [address] WBC 7.8 10 3/mcL Normal 4.5-10.8 [facility] Comment on above: Performed By: #### A WOLF, FE, ADIFF, CBC, IBC, GFR, CMP #### [address] [address] CMPon 05-15-2025 Albumin Level 4.2 G/dL Normal 3.5-5.0 [facility] Comment on above: Performed By: #### A WOLF, FE, ADIFF, CBC, IBC, GFR, CMP #### [place] [id number] Albumin/Globulin [Mass ratio] 1.5 {ratio} Normal 1.1-2.5 [facility] Comment on above: Performed By: #### A WOLF, FE, ADIFF, CBC, IBC, GFR, CMP #### [address] [address] ALP [Catalytic activity/Vol] 53 U/L Normal 40-135 [facility] Comment on above: Performed By: #### A WOLF, FE, ADIFF, CBC, IBC, GFR, CMP #### [address] [address] ALT [Catalytic activity/Vol] 12 U/L Low 14-59 [facility] Comment on above: Performed By: #### A WOLF, FE, ADIFF, CBC, IBC, GFR, CMP #### [address] [address] AST [Catalytic activity/Vol] 10 U/L Normal 10-40 [facility] Comment on above: Performed By: #### A WOLF, FE, ADIFF, CBC, IBC, GFR, CMP #### [address] [address] Bili Total 0.4 mg/dL Normal 0.2-1.0 [facility] Comment on above: Result Comment: Use of this assay is not recommended for patients undergoing treatment with eltrombopag due to the potential for falsely elevated results. Performed By: #### A WOLF, FE, ADIFF, CBC, IBC, GFR, CMP #### [address] [address] BUN/Creatinine Ratio 13 ratio Normal 7-27 [facility] Comment on above: Performed By: #### A WOLF, FE, ADIFF, CBC, IBC, GFR, CMP #### [address] [address] Calcium [Mass/Vol] 9.0 mg/dL Normal 8.4-10.[address] [facility] Comment on above: Performed By: #### A WOLF, FE, ADIFF, CBC, IBC, GFR, CMP #### [address] [address] Chloride [Moles/Vol] 100 mmol/L Normal 98-107 [facility] Comment on above: Performed By: #### A WOLF, FE, ADIFF, CBC, IBC, GFR, CMP #### [address] [address] CO2 [Moles/Vol] 33 mmol/L High 22-29 [facility] Comment on above: Performed By: #### A WOLF, FE, ADIFF, CBC, IBC, GFR, CMP #### [address] [address] Creatinine [Mass/Vol] 0.79 mg/dL Normal 0.51-0.95 [facility] Comment on above: Performed By: #### A WOLF, FE, ADIFF, CBC, IBC, GFR, CMP #### [address] [address] Electrolyte Balance 7.0 mEq/L Normal 4.0-15.0 [facility] Comment on above: Performed By: #### A WOLF, FE, ADIFF, CBC, IBC, GFR, CMP #### [address] [address] Globulin 2.8 G/dL Normal 2.7-4.4 [facility] Comment on above: Performed By: #### A WOLF, FE, ADIFF, CBC, IBC, GFR, CMP #### [place] [address] Glucose [Mass/Vol] 77 mg/dL Normal 70-[address] [facility] Comment on above: Performed By: #### A WOLF, FE, ADIFF, CBC, IBC, GFR, CMP #### [place] [id number] Potassium [Moles/Vol] 3.5 mmol/L Normal 3.5-5.1 [facility] Comment on above: Performed By: #### A WOLF, FE, ADIFF, CBC, IBC, GFR, CMP #### [address] [address] Sodium [Moles/Vol] 140 mmol/L Normal 136-[address] [facility] Comment on above: Performed By: #### A WOLF, FE, ADIFF, CBC, IBC, GFR, CMP #### [address] [address] Total Protein 7.0 G/dL Normal 6.4-8.2 [facility] Comment on above: Performed By: #### A WOLF, FE, ADIFF, CBC, IBC, GFR, CMP #### [address] [address] Urea nitrogen [Mass/Vol] 10 mg/dL Normal 7-18 [facility] Comment on above: Performed By: #### A WOLF, FE, ADIFF, CBC, IBC, GFR, CMP #### [place] [address] [place], [place] [address] FEon 05-15-2025 Iron [Mass/Vol] 55 ug/dL Normal 50-170 [facility] Comment on above: Performed By: #### A WOLF, FE, ADIFF, CBC, IBC, GFR, CMP #### [place] [address] [place], [place] [address] IBCon 05-15-2025 TIBC 328 mcg/dL Normal 250-450 [facility] Comment on above: Performed By: #### A WOLF, FE, ADIFF, CBC, IBC, GFR, CMP #### [place] [address] [place], [place] [address] LABORATORYOrdered By: SYSTEM SYSTEM on 05-15-2025 Albumin BCP dye [Mass/Vol] 4.2 G/dL Normal 3.5 - 5.0 G/dL AO ADM SS Albumin/Globulin [Mass ratio] 1.5 {ratio} Normal 1.1 - 2.5 ratio AO ADM SS ALP [Catalytic activity/Vol] 53 U/L Normal 40 - 135 U/L AO ADM SS ALT With P-5'-P [Catalytic activity/Vol] 12 U/L Low 14 - 59 U/L AO ADM SS AST With P-5'-P [Catalytic activity/Vol] 10 U/L Normal 10 - 40 U/L AO ADM SS Basophils (Bld) [#/Vol] 0.1 103/mcL Normal 0.0 - 0.3 10^3/mcL AO Workflow SS Basophils/100 WBC (Bld) 0.7 % Normal 0.0 - 2.5 % AO Workflow SS Bilirubin [Mass/Vol] 0.4 mg/dL Normal 0.2 - 1.0 mg/dL AO ADM SS Comment on above: Interpretive Data: U se of this assay is not recommended for patients undergoing treatment with eltrombopag due to the potential for falsely elevated results. Calcium [Mass/Vol] 9.0 mg/dL Normal 8.4 - 10. 2 mg/dL AO ADM SS Chloride [Moles/Vol] 100 mmol/L Normal 98 - 107 mmol/L AO ADM SS CO2 [Moles/Vol] 33 mmol/L High 22 - 29 mmol/L AO ADM SS Creatinine [Mass/Vol] 0.79 mg/dL Normal 0.51 - 0.95 mg/dL AO ADM SS Electrolyte Balance 7.0 mEq/L Normal 4.0 - 15 .0 mEq/L AO ADM SS Eosinophil, Absolute 0.1 103/mcL Normal 0.0 - 0.7 10^3/mcL AO Workflow SS Eosinophils/100 WBC (Bld) 1.9 % Normal 0.0 - 6.0 % AO Workflow SS Erythrocyte distribution width (RBC) [Ratio] 13.4 % Normal 11.5 - 15.5 % AO Workflow SS Globulin 2.8 G/dL Normal 2.7 - 4.4 G/dL AO ADM SS GLOMERULAR FILTRATION RATE/1.73 SQ M.PREDICTED:ARVRAT: PT:SER/PLAS/BLD:QN: CREATININE-BASED FORMULA (CKD-EPI 2020) 96 ml/min/1.73sqm Invalid Interpretation Code AO Chemistry S Comment on above: Interpretive Data: Stages of Chronic Kidney Disease (CKD) Stage Description eGFR(ml/min/1.73 sq.m.) CKD 1 Normal kidney function or >=90 normal kindney function with possible kidney damage (ex. Proteinuria) CKD 2 Kidney damage with mild loss 60-89 of kidney function CKD 3a Mild to moderate loss of kidney 45-59 function CKD 3b Moderate to severe loss of 30-44 of kindey function CKD 4 Severe loss of kidney function 15-29 CKD 5 Kidney failure <15 Note: (go live 2024) the eGFR calculation was updated to the 2020 CKD-EPI creatinine equation without a race factor to calculate the eGFR results. Glucose [Mass/Vol] 77 mg/dL Normal 70 - 105 mg/dL AO ADM SS Hematocrit (Bld) [Volume fraction] 40.8 % Normal 34.0 - 46.0 % AO Workflow SS Hemoglobin (Bld) [Mass/Vol] 14.0 G/dL Normal 12.0 - 16.0 G/dL AO Workflow SS Iron [Mass/Vol] 55 ug/dL Normal 50 - 170 mcg/dL AO ADM SS Iron binding capacity [Mass/Vol] 328 mcg/dL Normal 250 - 450 mcg/dL AO ADM SS Lymphocytes (Bld) [#/Vol] 1.7 103/mcL Normal 0.9 - 4.3 10^3/mcL AO Workflow SS Lymphocytes/100 WBC (Bld) 21.7 % Normal 20.0 - 40.0 % AO Workflow SS MCH (RBC) [Entitic mass] 31.4 pg Normal 27.0 - 33.0 pg AO Workflow SS MCHC 34.2 G/dL Normal 32.0 - 36.0 G/dL AO Workflow SS MCV (RBC) [Entitic vol] 91.8 fL Normal 80.0 - 99.0 fL AO Workflow SS Monocytes (Bld) [#/Vol] 0.6 103/mcL Normal 0.1 - 1.4 10^3/mcL AO Workflow SS Monocytes/100 WBC (Bld) 7.1 % Normal 2.0 - 13.0 % AO Workflow SS Neutrophils (Bld) [#/Vol] 5.4 103/mcL Normal 2.3 - 8.1 10^3/mcL AO Workflow SS Neutrophils/100 WBC (Bld) 68.6 % Normal 50.0 - 75.0 % AO Workflow SS Platelet mean volume (Bld) [Entitic vol] 8.8 fL Normal 6.6 - 10.5 fL AO Workflow SS Platelets (Bld) [#/Vol] 307 103/mcL Normal 150 - 450 10^3/mcL AO Workflow SS Potassium [Moles/Vol] 3.5 mmol/L Normal 3.5 - 5.1 mmol/L AO ADM SS Protein [Mass/Vol] 7.0 G/dL Normal 6.4 - 8.2 G/dL AO ADM SS RBC (Bld) [#/Vol] 4.44 106/mcL Normal 4.10 - 5.3 0 10^6/mcL AO Workflow SS Sodium [Moles/Vol] 140 mmol/L Normal 136 - 145 mmol/L AO ADM SS Urea nitrogen [Mass/Vol] 10 mg/dL Normal 7 - 18 mg/dL AO ADM SS Urea nitrogen/Creatinine [Mass ratio] 13 ratio Normal 7 - 27 ratio AO ADM SS WBC (Bld) [#/Vol] 7.8 103/mcL Normal 4.5 - 10.8 10^3/mcL AO Workflow SS .Auto Diffon 04-27-2025 Basophil, Absolute 0.1 10 3/mcL Normal 0.0-0.3 [facility] Comment on above: Performed By: #### B MP, TROPHS, ADIFF, CBC, ANEU, MDW, GFR #### [place] [address] [place], [place] [address] Basophils/100 WBC (Bld) 0.8 % Normal 0.0-2.5 [facility] Comment on above: Performed By: #### B MP, TROPHS, ADIFF, CBC, ANEU, MDW, GFR #### [address] [address] Eosinophil, Absolute 0.1 10 3/mcL Normal 0.0-0.7 [facility] Comment on above: Performed By: #### B MP, TROPHS, ADIFF, CBC, ANEU, MDW, GFR #### [address] [address] Eosinophils/100 WBC (Bld) 2.0 % Normal 0.0-6.0 [facility] Comment on above: Performed By: #### B MP, TROPHS, ADIFF, CBC, ANEU, MDW, GFR #### [address] [address] Lymphocyte, Absolute 2.0 10 3/mcL Normal 0.9-4.3 [facility] Comment on above: Performed By: #### B MP, TROPHS, ADIFF, CBC, ANEU, MDW, GFR #### [address] [address] Lymphocytes/100 WBC (Bld) 26.4 % Normal 20.0-40.0 [facility] Comment on above: Performed By: #### B MP, TROPHS, ADIFF, CBC, ANEU, MDW, GFR #### [address] [address] Monocyte, Absolute 0.7 10 3/mcL Normal 0.1-1.4 [facility] Comment on above: Performed By: #### B MP, TROPHS, ADIFF, CBC, ANEU, MDW, GFR #### [address] [address] Monocytes/100 WBC (Bld) 9.7 % Normal 2.0-13.0 [facility] Comment on above: Performed By: #### B MP, TROPHS, ADIFF, CBC, ANEU, MDW, GFR #### [address] [address] Neutrophils/100 WBC (Bld) 61.1 % Normal 50.0-75.0 [facility] Comment on above: Performed By: #### B MP, TROPHS, ADIFF, CBC, ANEU, MDW, GFR #### [address] [address] .GFRon 04-27-2025 Estimated Glomerular Filtration Rate 92 ml/min/1.73sqm Normal [facility] Comment on above: Result Comment: Stages of Chronic Kidney Disease (CKD) Stage Description eGFR(ml/min/1.73 sq.m.) CKD 1 Normal kidney function or >=90 normal kindney function with possible kidney damage (ex. Proteinuria) CKD 2 Kidney damage with mild loss 60-89 of kidney function CKD 3a Mild to moderate loss of kidney 45-59 function CKD 3b Moderate to severe loss of 30-44 of kindey function CKD 4 Severe loss of kidney function 15-29 CKD 5 Kidney failure <15 Note: (go live 2024) the eGFR calculation was updated to the 2020 CKD-EPI creatinine equation without a race factor to calculate the eGFR results. Performed By: #### A WOLF, FE, ADIFF, CBC, IBC, GFR, CMP #### [address] [address] .MDWon 04-27-2025 Monocyte Distribution Width Not performed Normal 0.00-20.00 [facility] Comment on above: Result Comment: MDW testing performed only on adult ER patients between the ages of 18-89 years. Performed By: #### A WOLF, FE, ADIFF, CBC, IBC, GFR, CMP #### [address] [address] .NEUABSon 04-27-2025 Neutrophil, Absolute 4.6 10 3/mcL Normal 2.3-8.1 [facility] Comment on above: Performed By: #### A WOLF, FE, ADIFF, CBC, IBC, GFR, CMP #### [address] [address] BMPon 04-27-2025 BUN/Creatinine Ratio 6 ratio Low 7-27 [facility] Comment on above: Performed By: #### A WOLF, FE, ADIFF, CBC, IBC, GFR, CMP #### [place] [id number] Calcium [Mass/Vol] 9.2 mg/dL Normal 8.4-10.[address] [facility] Comment on above: Performed By: #### A WOLF, FE, ADIFF, CBC, IBC, GFR, CMP #### [place] [address] Chloride [Moles/Vol] 103 mmol/L Normal 98-107 [facility] Comment on above: Performed By: #### A WOLF, FE, ADIFF, CBC, IBC, GFR, CMP #### [place] [address] CO2 [Moles/Vol] 32 mmol/L High 22-29 [facility] Comment on above: Performed By: #### A WOLF, FE, ADIFF, CBC, IBC, GFR, CMP #### [place] [address] Creatinine [Mass/Vol] 0.82 mg/dL Normal 0.51-0.95 [facility] Comment on above: Performed By: #### A WOLF, FE, ADIFF, CBC, IBC, GFR, CMP #### [place] [address] Electrolyte Balance 7.0 mEq/L Normal 4.0-15.0 [facility] Comment on above: Performed By: #### A WOLF, FE, ADIFF, CBC, IBC, GFR, CMP #### [place] [address] Glucose [Mass/Vol] 105 mg/dL Normal 70-[address] [facility] Comment on above: Performed By: #### A WOLF, FE, ADIFF, CBC, IBC, GFR, CMP #### [address] [address] Potassium [Moles/Vol] 3.9 mmol/L Normal 3.5-5.1 [facility] Comment on above: Performed By: #### A WOLF, FE, ADIFF, CBC, IBC, GFR, CMP #### [address] [address] Sodium [Moles/Vol] 142 mmol/L Normal 136-[address] [facility] Comment on above: Performed By: #### A WOLF, FE, ADIFF, CBC, IBC, GFR, CMP #### [address] [address] Urea nitrogen [Mass/Vol] 5 mg/dL Low 7-18 [facility] Comment on above: Performed By: #### A WOLF, FE, ADIFF, CBC, IBC, GFR, CMP #### [address] [address] CBCon 04-27-2025 Erythrocyte distribution width (RBC) [Ratio] 13.4 % Normal 11.5-15.5 [facility] Comment on above: Performed By: #### B RAJIV, TROPHS, ADIFF, CBC, ANEU, MDW, GFR #### [address] [address] Hematocrit (Bld) [Volume fraction] 42.7 % Normal 34.0-46.0 [facility] Comment on above: Performed By: #### B RAJIV, TROPHS, ADIFF, CBC, ANEU, MDW, GFR #### [address] [address] Hgb 14.9 G/dL Normal 12.0-16.0 [facility] Comment on above: Performed By: #### B RAJIV, TROPHS, ADIFF, CBC, ANEU, MDW, GFR #### [address] [address] MCH (RBC) [Entitic mass] 31.6 pg Normal 27.0-33.0 [facility] Comment on above: Performed By: #### B MP, TROPHS, ADIFF, CBC, ANEU, MDW, GFR #### [place] [address] MCHC 34.9 G/dL Normal 32.0-36.0 [facility] Comment on above: Performed By: #### B MP, TROPHS, ADIFF, CBC, ANEU, MDW, GFR #### [place] [address] MCV (RBC) [Entitic vol] 90.6 fL Normal 80.0-99.0 [facility] Comment on above: Performed By: #### B MP, TROPHS, ADIFF, CBC, ANEU, MDW, GFR #### [place] [address] Platelet 279 10 3/mcL Normal 150-450 [facility] Comment on above: Performed By: #### B MP, TROPHS, ADIFF, CBC, ANEU, MDW, GFR #### [place] [address] Platelet mean volume (Bld) [Entitic vol] 7.9 fL Normal 6.6-10.5 [facility] Comment on above: Performed By: #### B MP, TROPHS, ADIFF, CBC, ANEU, MDW, GFR #### [place] [address] RBC 4.72 10 6/mcL Normal 4.10-5.30 [facility] Comment on above: Performed By: #### B MP, TROPHS, ADIFF, CBC, ANEU, MDW, GFR #### [place] [address] WBC 7.7 10 3/mcL Normal 4.5-10.8 [facility] Comment on above: Performed By: #### B MP, TROPHS, ADIFF, CBC, ANEU, MDW, GFR #### [place] [address] LABORATORYOrdered By: SYSTEM SYSTEM on 04-27-2025 Basophils (Bld) [#/Vol] 0.1 103/mcL Normal 0.0 - 0.3 10^3/mcL AO Workflow SS Basophils/100 WBC (Bld) 0.8 % Normal 0.0 - 2.5 % AO Workflow SS Calcium [Mass/Vol] 9.2 mg/dL Normal 8.4 - 10. 2 mg/dL AO ADM SS Chloride [Moles/Vol] 103 mmol/L Normal 98 - 107 mmol/L AO ADM SS CO2 [Moles/Vol] 32 mmol/L High 22 - 29 mmol/L AO ADM SS Creatinine [Mass/Vol] 0.82 mg/dL Normal 0.51 - 0.95 mg/dL AO ADM SS Electrolyte Balance 7.0 mEq/L Normal 4.0 - 15 .0 mEq/L AO ADM SS Eosinophil, Absolute 0.1 103/mcL Normal 0.0 - 0.7 10^3/mcL AO Workflow SS Eosinophils/100 WBC (Bld) 2.0 % Normal 0.0 - 6.0 % AO Workflow SS Erythrocyte distribution width (RBC) [Ratio] 13.4 % Normal 11.5 - 15.5 % AO Workflow SS Estimated Glomerular Filtration Rate 92 ml/min/1.73sqm Invalid Interpretation Code AO Chemistry S Comment on above: Interpretive Data: Stages of Chronic Kidney Disease (CKD) Stage Description eGFR(ml/min/1.73 sq.m.) CKD 1 Normal kidney function or >=90 normal kindney function with possible kidney damage (ex. Proteinuria) CKD 2 Kidney damage with mild loss 60-89 of kidney function CKD 3a Mild to moderate loss of kidney 45-59 function CKD 3b Moderate to severe loss of 30-44 of kindey function CKD 4 Severe loss of kidney function 15-29 CKD 5 Kidney failure <15 Note: (go live 2024) the eGFR calculation was updated to the 2020 CKD-EPI creatinine equation without a race factor to calculate the eGFR results. Glucose [Mass/Vol] 105 mg/dL Normal 70 - 105 mg/dL AO ADM SS Hematocrit (Bld) [Volume fraction] 42.7 % Normal 34.0 - 46.0 % AO Workflow SS Hemoglobin (Bld) [Mass/Vol] 14.9 G/dL Normal 12.0 - 16.0 G/dL AO Workflow SS Lymphocytes (Bld) [#/Vol] 2.0 103/mcL Normal 0.9 - 4.3 10^3/mcL AO Workflow SS Lymphocytes/100 WBC (Bld) 26.4 % Normal 20.0 - 40.0 % AO Workflow SS MCH (RBC) [Entitic mass] 31.6 pg Normal 27.0 - 33.0 pg AO Workflow SS MCHC 34.9 G/dL Normal 32.0 - 36.0 G/dL AO Workflow SS MCV (RBC) [Entitic vol] 90.6 fL Normal 80.0 - 99.0 fL AO Workflow SS Monocyte distribution width Auto (Bld) [Entitic vol] Not Performed 1 *NA* (04/27/25 7:49 PM) Invalid Interpretation Code 0.00 - 20.00 AO Hematology S Comment on above: Result Comment: MDW testing performed only on adult ER patients between the ages of 18-89 years. Monocytes (Bld) [#/Vol] 0.7 103/mcL Normal 0.1 - 1.4 10^3/mcL AO Workflow SS Monocytes/100 WBC (Bld) 9.7 % Normal 2.0 - 13.0 % AO Workflow SS Neutrophils (Bld) [#/Vol] 4.6 103/mcL Normal 2.3 - 8.1 10^3/mcL AO Workflow SS Neutrophils/100 WBC (Bld) 61.1 % Normal 50.0 - 75.0 % AO Workflow SS Platelet mean volume (Bld) [Entitic vol] 7.9 fL Normal 6.6 - 10.5 fL AO Workflow SS Platelets (Bld) [#/Vol] 279 103/mcL Normal 150 - 450 10^3/mcL AO Workflow SS Potassium [Moles/Vol] 3.9 mmol/L Normal 3.5 - 5.1 mmol/L AO ADM SS RBC (Bld) [#/Vol] 4.72 106/mcL Normal 4.10 - 5.3 0 10^6/mcL AO Workflow SS Sodium [Moles/Vol] 142 mmol/L Normal 136 - 145 mmol/L AO ADM SS Troponin I.cardiac DL <= 0.01 ng/mL [Mass/Vol] ng/L Normal 0 - 51 ng/L AO ADM SS Comment on above: Interpretive Data: H igh Sensitive Troponin I Reference Ranges: Female: 0-51 ng/L Male: 0-76 ng/L Testing performed on [employer] using a homogeneous sandwich chemiluminescent immunoassay based on [employer] technology. Urea nitrogen [Mass/Vol] 5 mg/dL Low 7 - 18 mg/dL AO ADM SS Urea nitrogen/Creatinine [Mass ratio] 6 ratio Low 7 - 27 ratio AO ADM SS WBC (Bld) [#/Vol] 7.7 103/mcL Normal 4.5 - 10.8 10^3/mcL AO Workflow SS TROPHSon 04-27-2025 High Sensitivity Troponin I <4 Normal 0-51 [facility] Comment on above: Result Comment: High Sensitive Troponin I Reference Ranges: Female: 0-51 ng/L Male: 0-76 ng/L Testing performed on [employer] using a homogeneous sandwich chemiluminescent immunoassay based on [employer] technology. Performed By: #### A WOLF, FE, ADIFF, CBC, IBC, GFR, CMP #### [place] [id number] [place], [place] [address] XR SPINE LUMBOSACRAL MINIMUM 4 VIEWSon 04-27-2025 XR SPINE LUMBOSACRAL MINIMUM 4 VIEWS ORIGINAL EXAMINATION: 4 XRAY VIEWS OF THE LUMBAR SPINE 04/27/2025 8:47 pm COMPARISON: None. HISTORY: ORDERING SYSTEM PROVIDED HISTORY: Reason for Exam: fall, pain FINDINGS: Vertebral body heights and alignment are preserved. No significant degenerative change by radiograph. IMPRESSION: No acute osseous abnormality. Interpreted by: Rocky Duenas Preliminary Report By: Rocky Duenas Electronically signed By Rocky Duenas Dictated Date: 04/27/2025 9:08:21 PM Prelim Date: 04/27/2025 9:09:08 PM Sign Date: 04/27/2025 9:09:08 PM Ordering Provider: YOHANNES HOGUE RP Normal [facility] 12 Lead EKGon 04-18-2025 12 Lead EKG [facility] [address] [place] [address] 12 Lead EKG 04/18/25 1630 MR#: [id number] Acct: [id number] Name: DAMARIS DYKES Rep #: [id number] : 1985 39 From: Brendan Kumar MD Attending Dr: Status: DEP ER Ordering Dr: Dwain Plasencia MD Date: 04/18/25 Location: ED Sex: F C Admitted: Test Reason : CP Blood Pressure : */* mmHG Vent. Rate : 64 BPM Atrial Rate : 64 BPM P-R Int : 144 ms QRS Dur : 98 ms QT Int : 420 ms P-R-T Axes : 24 24 23 degrees QTcB Int : 433 ms Normal sinus rhythm Poor R-wave progression ; consider anterior infarct, lead placement, or normal variant Abnormal ECG Confirmed by CARLINE MELENDEZ, BRENDAN ([id number]), editorial project manager GUERRERO SANTOS ([id number]) on 04/20/2025 10:36:30 AM Referred By: Confirmed By: BRENDAN KUMAR MD 04/20/25 1036 Date Brendan Kumar MD CC: Dr. Dwain Plasencia MD; JOSE A DOUGHERTY Signed Normal [facility] Basic Metabolic Profile (BMP )on 04-18-2025 BUN/CRE 5.1 RATIO Low 10-20 [facility] Comment on above: Performed By: #### L 501.5200, L500.2500 #### [facility] [address] [place], [address] Calcium [Mass/Vol] 9.4 mg/dL Normal 7.6-11.0 [facility] Comment on above: Performed By: #### L [id number], [id number] #### [facility] [address] [place], [address] Chloride [Moles/Vol] 102 mmol/L Normal 98-108 [facility] Comment on above: Performed By: #### L [id number], [id number] #### [facility] [address] [place], [address] CO2 [Moles/Vol] 26.3 mmol/L Normal 21.0-32.0 [facility] Comment on above: Performed By: #### L [id number], [id number] #### [facility] [address] [place], [address] Creatinine [Mass/Vol] 0.80 mg/dL Normal 0.70-1.20 [facility] Comment on above: Performed By: #### L [id number], L500.2500 #### [facility] [address] [place], [address] ECRCL 126.41 ml/min Normal 50-250 [facility] Comment on above: Performed By: #### L [id number], L500.2500 #### [facility] [address] [place], [address] GAP 15 Normal 5-15 [facility] Comment on above: Performed By: #### L [id number], L500.2500 #### [facility] [address] [place], [address] GFR/1.73 sq M.predicted among non-blacks MDRD (S/P/Bld) [Vol rate/Area] 96 mL/min/{1.73_m2} Normal >60 [facility] Comment on above: Result Comment: mL/m in/1.73m2 CKD-EPI Creatinine Equation (2020) Performed By: #### L 501.5200, L500.2500 #### [facility] [address] [place], [place], [id number] Glucose [Mass/Vol] 83 mg/dL Normal 70-99 [facility] Comment on above: Performed By: #### L 501.5200, L500.2500 #### [facility] [address] [place], [address] Potassium [Moles/Vol] 3.6 mmol/L Normal 3.3-5.1 [facility] Comment on above: Performed By: #### L 501.5200, L500.2500 #### [facility] [address] [place], [address] Sodium [Moles/Vol] 143 mmol/L Normal 133-145 [facility] Comment on above: Performed By: #### L 501.5200, L500.2500 #### [facility] [address] [place], [address] Urea nitrogen [Mass/Vol] 4 mg/dL Normal 4-19 [facility] Comment on above: Performed By: #### L 501.5200, L500.2500 #### [facility] [address] [place], [address] Emergency Department Summary on 04-18-2025 Emergency Department Summary [facility] Medical Records Department [address] [place] [address] Emergency Department Summary 04/18/25 MR#: [id number] Acct: [id number] Name: DAMARIS DYKES Rep #: [id number] : 1985 39 From: Dwain Plasencia MD PCP: JOSE A DOUGHERTY Status:REG ER Location: ED ADDENDUM by Dr. Dwain Plasencia MD on 04/18/25 at 1833 EKG that was obtained at 1630 was remarkable for a abnormal R wave progression. Rate was 64. OH interval 244 ms per cures duration 98 ms. QT duration of 120 ms. Kermit is normal. There is no ischemic changes noted. 04/18/25 1833 Cosigner Signature (if applicable): cc: JOSE A DOUGHERTY * Signed HPI History of Present Illness Chief Complaint: Chest Pain Detail of Chief Complaint: Intermittent chest pain, concern my potassium is low, poor p.o. intake Informant: patient Onset/Context/Timing Onset: Days (For all of her symptoms) Context: Sudden Onset (Lasting 5 minutes described as a nail going through her back and her chest) Timing: Intermittent and Lasts (Approximately 5 minutes) Quality: Sharp Location: back to chest Current Severity: Gone Maximum Severity: Severe Worsened by: Nothing Relieved by: nothing Associated Symptoms Associated Symptoms: I believe my potassium is low Narrative Narrative: patient is a 39-year-old female who presents because of intermittent chest pain, concern potassium is low and not feeling well. Patient has no local physician. She is from [place]. She states she has been admitted in the past. Review of prior ER visits indicates that she canceled an appointment with Veronique Ruiz or internal medicine on February 26, 2022. ER visits are from 2021 and 2020 for hypokalemia and unspecified chest pain. There is been no recent ED visits at [facility]. She has had no recent inpatient visits either. Nothing precipitates the chest pain and nothing exacerbates or alleviates the chest pain the last 5 minutes describes a nail going through her back into her chest. She denies shortness of breath. She denies history of VTE. She has no risk factors for VTE. She is status post hysterectomy September of this year. She denies leg pain, swelling discoloration. She does endorse poor p.o. intake, thirst, she states she is taking 4 potassium powder packs a day. She also states she is on magnesium. I do not see this as at listed med. She endorses decreased urine output. She denies frequency, urgency, hematuria or dysuria. Prior similar symptoms: Yes [facility] Medical History Anemia Dumping syndrome Thyroid cancer HTN (hypertension) Bipolar disorder Home Medications ???Medication ???Instructions ???Recorded ???Last Taken ???Type sulfamethoxazole 800 1 tab PO BID #6 TABLETS 02/18/22 U nknown Rx mg-trimethoprim 160 mg tablet ascorbic acid (vitamin C) 1,000 mg 1,000 mg PO DAILY 04/18/25 Unkno wn History tablet ferrous sulfate 325 mg (65 mg 325 mg PO BID 04/18/25 Unknown His tory iron) tablet (FeroSul) folic acid 1 mg tablet 1 mg PO DAILY 04/18/25 Unknown His tory lamotrigine 200 mg tablet 200 mg PO DAILY 04/18/25 Unknown H istory levothyroxine 200 mcg tablet 200 mcg PO DAILY 04/18/25 Unknown History magnesium oxide 400 mg (241.3 mg 400 mg PO DAILY 04/18/25 Unknown H istory magnesium) tablet potassium chloride 20 mEq oral 20 meq PO Q6H 04/18/25 Unknown His tory packet prazosin 1 mg capsule 1 mg PO QHS 04/18/25 Unknown Histo ry Allergy/AdvReac Type Severity Reaction Status Date / Time adhesive tape Allergy Rash Verified 04/18/25 16:22 mirtazapine (From Remeron) AdvReac Intermediate EXTREME Verified 04/18/25 16:22 MOOD SWINGS Surgical History H/O thyroidectomy History of lung surgery Hx of cholecystectomy Social History Smoking Status: Current every day smoker tobacco type: cigarettes substance use type: marijuana ROS ROS ED Constitutional Constitutional ED: Denies chills, fever(s) or subjective Eyes Eyes: Denies blurry vision or change in vision ENT ENT ED: Denies ear pain, rhinorrhea or sore throat Cardiovascular Cardiovascular: Reports chest pain; Denies orthopnea, palpitations, paroxysmal nocturnal dyspnea or racing heartbeat Respiratory/Chest Respiratory/Chest: Denies cough, dyspnea, dyspnea on exertion, orthopnea or paroxysmal nocturnal dyspnea Gastrointestinal Gastrointestinal: Denies abdominal pain, nausea or vomiting Musculoskeletal Musculoskeletal: Reports back pain; Denies arthralgias, myalgias or neck pain Integumentary Denies abscess, Abrasions or rash Neurologic Neurologic: Denies headache(s), paresthesias or weakness Psychiatric Psych (more content not included)... Normal [facility] Magnesiumon 04-18-2025 Magnesium [Mass/Vol] 2.3 mg/dL High 1.5-2.2 [facility] Comment on above: Performed By: #### L 501.5200, L500.2500 #### [facility] [address] [place], [place], [id number] CELIAC DISEASE COMPREHENSIVE PANELon 03-23-2025 IMMUNOGLOBULIN A 130 mg/dL Normal 47-310 [facility] Comment on above: Order Comment: FASTI NG:YES FASTING: YES Performed By: #### 1 [id number] #### [facility]/[place] [address] [facility] [place] [address] Carrier Loader: Lalo Treadwell M.D.,PhD INTERPRETATION see note Normal [facility] Comment on above: Order Comment: FASTI NG:YES FASTING: YES Result Comment: No s erological evidence of celiac disease. tTG IgA may normalize in individuals with celiac disease who maintain a gluten-free diet. Consider HLA DQ2 and DQ8 testing to rule out celiac disease. Celiac disease is extremely rare in the absence of DQ2 or DQ8. Performed By: #### 1 [id number] #### [facility]Psychiatric [address] [facility] [place] Carrier Loader: Lalo Treadwell M.D.,PhD TISSUE TRANSGLUTAMINASE AB, IGA <1.0 Normal <15.0 [facility] Comment on above: Order Comment: FASTI NG:YES FASTING: YES Result Comment: Value Interpretation <15.0 Antibody not detected > or = 15.0 Antibody detected Performed By: #### 1 [id number] #### [facility] [address] [facility] [place], [place] Carrier Loader: Lalo Treadwell M.D.,PhD TISSUE EXAMon 03-20-2025 TISSUE EXAM Surgical Pathology R eport Case: [id number] Authorizing Provider: Brandon Norton, Collected: 03/20/2025 09:24 AM Ordering Location: [facility] Surgery Received: 03/20/2025 01:28 PM Center Periop Pathologist: Iain Chester DO Specimens: A) - Esophagus, distal esophagus bx B) - Duodenum A. Esophagus, Distal, biopsy: Squamous mucosa with mild non-specific chronic inflammation and reactive epithelial change. Negative for intestinal metaplasia and dysplasia. B. Duodenum, biopsy: Duodenal mucosa without diagnostic abnormality. at 0857 EDT Dysphagia, unspecified type [R13.10] Nausea and vomiting, unspecified vomiting type [R11.2] Diarrhea, unspecified type [R19.7] A. Received in formalin, designated esophagus biopsy-distal esophagus biopsy, are 2 pink-koch fragment(s) of tissue measuring 0.4 x 0.3 x 0.2 cm in aggregate. Totally submitted in 1 cassette(s). B. Received in formalin, designated duodenum biopsy, are 4 pink-berger fragment(s) of tissue measuring 0.5 x 0.4 x 0.2 cm in aggregate. Totally submitted in 1 cassette(s). JK Gross examination performed at: [facility] - [address] [place] [id number] Microscopic examination is performed. Normal [facility] Comment on above: Performed By: #### 4 [id number] #### LAB [address] [place], [place] [id number] Lul Brennan M.D. [id number] ED Prov Noteon 03-02-2025 ED Prov Note HPI: 03/02/2025, Time: @NOWNR@ Damaris Le Donis is a 39 y.o. female presenting to the ED for here because her potassium is low and nauseated with decreased appetite and stomach upset, beginning last few days ago. The complaint has been constant, moderate in severity, and worsened by nothing. States has not been able to afford her medications including her potassium pills. No fever or chills. Also complains of diffuse mild chest discomfort yesterday but not today ROS: Pertinent positives and negatives are stated within HPI, all other systems reviewed and are negative. PAST HISTORY Past Medical History: @PMHP@ Past Surgical History: has a past surgical history that includes Plantar fascia surgery (Bilateral); Cholecystectomy; Lung surgery (Left); Esophagogastroduodenoscopy (02/24/2021); Colonoscopy (11/10/2021); Carpal Tunnel Release Open (Right, 04/29/2023); Colonoscopy (N/A, 05/14/2023); US Thyroid Biopsy With FNA (06/08/2023); Multiple tooth extractions; PIERCINGS AND TATTOOS; Dilation and curettage of uterus; Colposcopy; Thoracentesis; Thyroidectomy (Bilateral, 08/04/2023); and HYSTERECTOMY ROBOTIC XI WITH BILATERAL SALPINGECTOMY (N/A, 09/12/2024). Social History: reports that she has been smoking cigarettes. She has a 20 pack-year smoking history. She has never used smokeless tobacco. She reports that she does not currently use alcohol. She reports current drug use. Frequency: 7.00 times per week. Drug: Marijuana. Family History: family history includes Achalasia in her maternal grandmother and mother; Alzheimer's disease in her maternal grandmother; Arthritis in her mother; Asthma in her brother and mother; Breast cancer in her paternal grandmother; COPD in her maternal grandmother; Colon cancer in her maternal great-grandfather; Coronary artery disease in her maternal grandmother; Diabetes in her maternal grandmother and mother; Fibromyalgia in her mother; Heart attack in her maternal grandmother; Heart failure in her mother; Hypertension in her father and mother; Peripheral vascular disease in her father and mother; Restless legs syndrome in her mother; Rheum arthritis in her maternal grandmother; Sleep apnea in her mother; Stroke in her mother; Thyroid disease in her mother; psychiatric disorder in her mother. The patient's home medications have been reviewed. Allergies: Mirtazapine and Adhesive tape-silicones RESULTS All laboratory and radiology results have been personally reviewed by myself LABS: Results for orders placed or performed during the hospital encounter of 03/02/25 EKG 12-lead Collection Time: 03/02/25 12:09 PM Result Value Ref Range Ventricular Rate 61 BPM Atrial Rate 61 BPM P-R Interval 144 ms QRS Duration 106 ms Q-T Interval 462 ms QTC Calculation (Bezet) 465 ms P Kermit 19 degrees R Kermit 18 degrees T Kermit 9 degrees POC CBC and Differential Collection Time: 03/02/25 12:15 PM Result Value Ref Range WBC 7.67 4.50 - 11.00 K/mcL RBC 5.47 (H) 4.00 - 5.20 M/mcL Hemoglobin 16.6 (H) 12.0 - 16.0 g/dL Hematocrit 48.5 (H) 36.0 - 46.0 % MCV 88.7 80.0 - 100.0 fL MCH 30.3 26.0 - 34.0 pg MCHC 34.2 31.0 - 37.0 g/dL RDW - CV 12.8 11.6 - 14.8 % Platelets 348 150 - 400 K/mcL MPV 9.9 9.4 - 12.4 fL Neutrophils 55.7 % Lymphocytes 34.4 % Monocytes 7.4 % Eosinophils 2.0 % Basophils 0.4 % IG Percent 0.10 % Neutrophils Abs 4.27 1.70 - 7.00 K/mcL Lymphocytes Abs 2.64 0.90 - 4.00 K/mcL Monocytes Abs 0.57 0.30 - 0.90 K/mcL Eosinophils Abs 0.15 0.00 - 0.50 K/mcL Basophils Abs 0.03 0.00 - 0.30 K/mcL IG Absolute 0.01 0.00 - 0.30 K/mcL POC Basic Metabolic Panel Collection Time: 03/02/25 12:22 PM Result Value Ref Range Glucose 95 65 - 99 mg/dL BUN 5 (L) 8 - 25 mg/dL Creatinine 0.78 0.40 - 1.10 mg/dL GFR 99 >=60 mL/min/1.73 m2 Sodium 139 135 - 145 mmol/L Potassium 2.7 (CL) 3.5 - 5.1 mmol/L Chloride 92 (L) 98 - 108 mmol/L TCO2 31 21 - 32 mmol/L Ionized Calcium 4.2 (L) 4.5 - 5.3 mg/dL POC Troponin I Collection Time: 03/02/25 12:47 PM Result Value Ref Range Troponin I <0.05 <0.05 ng/mL POC Basic Metabolic Panel Collection Time: 03/02/25 3:19 PM Result Value Ref Range Glucose 91 65 - 99 mg/dL BUN 4 (L) 8 - 25 mg/dL Creatinine 0.73 0.40 - 1.10 mg/dL GFR 107 >=60 mL/min/1.73 m2 Sodium 141 135 - 145 mmol/L Potassium 2.6 (CL) 3.5 - 5.1 mmol/L Chloride 96 (L) 98 - 108 mmol/L TCO2 33 (H) 21 - 32 mmol/L Ionized Calcium 4.3 (L) 4.5 - 5.3 mg/dL POC Basic Metabolic Panel Collection Time: 03/02/25 6:47 PM Result Value Ref Range Glucose 102 (H) 65 - 99 mg/dL BUN 4 (L) 8 - 25 mg/dL Creatinine 0.75 0.40 - 1.10 mg/dL GFR 103 >=60 mL/min/1.73 m2 Sodium 142 135 - 145 mmol/L Potassium 2.9 (L) 3.5 - 5.1 mmol/L Chloride 9 (more content not included)... Normal [facility] POC BASIC METABOLIC PANEL - [facility] 03-02-2025 Chloride [Moles/Vol] 97 mmol/L Low 98-108 [facility] Comment on above: Order Comment: [facility] has implemented the eGFR calculation approach that does not have a coefficient for race that conforms to the NKF-ASN Task Force Recommendations. CO2 [Moles/Vol] 34 mmol/L High 21-32 [facility] Comment on above: Order Comment: [facility] has implemented the eGFR calculation approach that does not have a coefficient for race that conforms to the NKF-ASN Task Force Recommendations. Creatinine [Mass/Vol] 0.75 mg/dL Normal 0.40-1.10 [facility] Comment on above: Order Comment: [facility] has implemented the eGFR calculation approach that does not have a coefficient for race that conforms to the NKF-ASN Task Force Recommendations. Glucose [Mass/Vol] 102 mg/dL High 65-99 [facility] Comment on above: Order Comment: [facility] has implemented the eGFR calculation approach that does not have a coefficient for race that conforms to the NKF-ASN Task Force Recommendations. POC GFR 103 mL/min/1.73 m2 Normal >=60 [facility] Comment on above: Order Comment: [facility] has implemented the eGFR calculation approach that does not have a coefficient for race that conforms to the NKF-ASN Task Force Recommendations. Result Comment: Rigo mated GFR was calculated using the 2020 CKD-EPI creatinine equation. POC IONIZED CALCIUM 4.5 mg/dL Normal 4.5-5.3 [facility] Comment on above: Order Comment: [facility] has implemented the eGFR calculation approach that does not have a coefficient for race that conforms to the NKF-ASN Task Force Recommendations. Potassium [Moles/Vol] 2.9 mmol/L Low 3.5-5.1 [facility] Comment on above: Order Comment: [facility] has implemented the eGFR calculation approach that does not have a coefficient for race that conforms to the NKF-ASN Task Force Recommendations. Sodium [Moles/Vol] 142 mmol/L Normal 135-145 [facility] Comment on above: Order Comment: [facility] has implemented the eGFR calculation approach that does not have a coefficient for race that conforms to the NKF-ASN Task Force Recommendations. Urea nitrogen [Mass/Vol] 4 mg/dL Low 8-25 [facility] Comment on above: Order Comment: [facility] has implemented the eGFR calculation approach that does not have a coefficient for race that conforms to the NKF-ASN Task Force Recommendations. Chloride [Moles/Vol] 96 mmol/L Low 98-108 [facility] Comment on above: Order Comment: Criti toney result acted upon time of test. Test performed at bedside.[facility] has implemented the eGFR calculation approach that does not have a coefficient for race that conforms to the NKF-ASN Task Force Recommendations. CO2 [Moles/Vol] 33 mmol/L High 21-32 [facility] Comment on above: Order Comment: Criti toney result acted upon time of test. Test performed at bedside.[facility] has implemented the eGFR calculation approach that does not have a coefficient for race that conforms to the NKF-ASN Task Force Recommendations. Creatinine [Mass/Vol] 0.73 mg/dL Normal 0.40-1.10 [facility] Comment on above: Order Comment: Criti toney result acted upon time of test. Test performed at bedside.[facility] has implemented the eGFR calculation approach that does not have a coefficient for race that conforms to the NKF-ASN Task Force Recommendations. Glucose [Mass/Vol] 91 mg/dL Normal 65-99 [facility] Comment on above: Order Comment: Criti toney result acted upon time of test. Test performed at bedside.[facility] has implemented the eGFR calculation approach that does not have a coefficient for race that conforms to the NKF-ASN Task Force Recommendations. POC GFR 107 mL/min/1.73 m2 Normal >=60 [facility] Comment on above: Order Comment: Criti toney result acted upon time of test. Test performed at bedside.[facility] has implemented the eGFR calculation approach that does not have a coefficient for race that conforms to the NKF-ASN Task Force Recommendations. Result Comment: Rigo mated GFR was calculated using the 2020 CKD-EPI creatinine equation. POC IONIZED CALCIUM 4.3 mg/dL Low 4.5-5.3 [facility] Comment on above: Order Comment: Criti toney result acted upon time of test. Test performed at bedside.[facility] has implemented the eGFR calculation approach that does not have a coefficient for race that conforms to the NKF-ASN Task Force Recommendations. Potassium [Moles/Vol] 2.6 mmol/L Off scale low 3.5-5.1 [facility] Comment on above: Order Comment: Criti toney result acted upon time of test. Test performed at bedside.[facility] has implemented the eGFR calculation approach that does not have a coefficient for race that conforms to the NKF-ASN Task Force Recommendations. Sodium [Moles/Vol] 141 mmol/L Normal 135-145 [facility] Comment on above: Order Comment: Criti toney result acted upon time of test. Test performed at bedside.[facility] has implemented the eGFR calculation approach that does not have a coefficient for race that conforms to the NKF-ASN Task Force Recommendations. Urea nitrogen [Mass/Vol] 4 mg/dL Low 8-25 [facility] Comment on above: Order Comment: Criti toney result acted upon time of test. Test performed at bedside.[facility] has implemented the eGFR calculation approach that does not have a coefficient for race that conforms to the NKF-ASN Task Force Recommendations. Chloride [Moles/Vol] 92 mmol/L Low 98-108 [facility] Comment on above: Order Comment: Criti toney result acted upon time of test. Test performed at bedside. [facility] has implemented the eGFR calculation approach that does not have a coefficient for race that conforms to the NKF-ASN Task Force Recommendations. CO2 [Moles/Vol] 31 mmol/L Normal 21-32 [facility] Comment on above: Order Comment: Criti toney result acted upon time of test. Test performed at bedside. [facility] has implemented the eGFR calculation approach that does not have a coefficient for race that conforms to the NKF-ASN Task Force Recommendations. Creatinine [Mass/Vol] 0.78 mg/dL Normal 0.40-1.10 [facility] Comment on above: Order Comment: Criti toney result acted upon time of test. Test performed at bedside. [facility] has implemented the eGFR calculation approach that does not have a coefficient for race that conforms to the NKF-ASN Task Force Recommendations. Glucose [Mass/Vol] 95 mg/dL Normal 65-99 [facility] Comment on above: Order Comment: Criti toney result acted upon time of test. Test performed at bedside. [facility] has implemented the eGFR calculation approach that does not have a coefficient for race that conforms to the NKF-ASN Task Force Recommendations. POC GFR 99 mL/min/1.73 m2 Normal >=60 [facility] Comment on above: Order Comment: Criti toney result acted upon time of test. Test performed at bedside. [facility] has implemented the eGFR calculation approach that does not have a coefficient for race that conforms to the NKF-ASN Task Force Recommendations. Result Comment: Rigo mated GFR was calculated using the 2020 CKD-EPI creatinine equation. POC IONIZED CALCIUM 4.2 mg/dL Low 4.5-5.3 [facility] Comment on above: Order Comment: Criti toney result acted upon time of test. Test performed at bedside. [facility] has implemented the eGFR calculation approach that does not have a coefficient for race that conforms to the NKF-ASN Task Force Recommendations. Potassium [Moles/Vol] 2.7 mmol/L Off scale low 3.5-5.1 [facility] Comment on above: Order Comment: Criti toney result acted upon time of test. Test performed at bedside. [facility] has implemented the eGFR calculation approach that does not have a coefficient for race that conforms to the NKF-ASN Task Force Recommendations. Sodium [Moles/Vol] 139 mmol/L Normal 135-145 [facility] Comment on above: Order Comment: Criti toney result acted upon time of test. Test performed at bedside. [facility] has implemented the eGFR calculation approach that does not have a coefficient for race that conforms to the NKF-ASN Task Force Recommendations. Urea nitrogen [Mass/Vol] 5 mg/dL Low 8-25 [facility] Comment on above: Order Comment: Criti toney result acted upon time of test. Test performed at bedside. [facility] has implemented the eGFR calculation approach that does not have a coefficient for race that conforms to the NKF-ASN Task Force Recommendations. POC CBC AND DIFFERENTIALon 0 03-02-2025 BASOPHILS ABSOLUTE COUNT 0.03 K/mcL Normal 0.00-0.30 [facility] Basophils/100 WBC (Bld) 0.4 % Normal [facility] Eosinophils (Bld) [#/Vol] 0.15 10*3/uL Normal 0.00-0.50 [facility] Eosinophils/100 WBC (Bld) 2.0 % Normal [facility] Erythrocyte distribution width (RBC) [Ratio] 12.8 % Normal 11.6-14.8 [facility] Hematocrit (Bld) [Volume fraction] 48.5 % High 36.0-46.0 [facility] Hemoglobin (Bld) [Mass/Vol] 16.6 g/dL High 12.0-16.0 [facility] Comment on above: Result Comment: Hemo globin result outside normal range for a female patient, consider a mixing issue. IG ABSOLUTE 0.01 K/mcL Normal 0.00-0.30 [facility] IG PERCENT 0.10 % Normal [facility] Comment on above: Result Comment: The IG parameter is the percentage of metamyelocytes, myelocytes and promyelocytes. An immature granulocyte count (IG) of 1% or more suggests the possibility of infection, an IG count of 3% is very likely related to an infection. Lymphocytes (Bld) [#/Vol] 2.64 10*3/uL Normal 0.90-4.00 [facility] Lymphocytes/100 WBC (Bld) 34.4 % Normal [facility] MCH (RBC) [Entitic mass] 30.3 pg Normal 26.0-34.0 [facility] MCV (RBC) [Entitic vol] 88.7 fL Normal 80.0-100.0 [facility] MEAN CORPUSCULAR HEMOGLOBIN CONC 34.2 g/dL Normal 31.0-37.0 [facility] Monocytes (Bld) [#/Vol] 0.57 10*3/uL Normal 0.30-0.90 [facility] [facility] Monocytes/100 WBC (Bld) 7.4 % Normal [facility] NEUTROPHILS ABSOLUTE COUNT 4.27 K/mcL Normal 1.70-7.00 [facility] Neutrophils/100 WBC (Bld) 55.7 % Normal [facility] Platelet mean volume (Bld) [Entitic vol] 9.9 fL Normal 9.4-12.4 [facility] Platelets (Bld) [#/Vol] 348 10*3/uL Normal 150-400 [facility] RBC (Bld) [#/Vol] 5.47 10*6/uL High 4.00-5.20 [facility] WBC (Bld) [#/Vol] 7.67 10*3/uL Normal 4.50-11.00 [facility] POC TROPONIN I RALSon 2024 POC TROPONIN I < Normal <0.05 [facility] XR CHEST PA/APon 03-02-2025 XR CHEST PA/AP EXAMINATION: XR CHEST PA/AP 03/02/2025 12:43 pm HISTORY: ORDERING SYSTEM PROVIDED HISTORY: cp, TECHNOLOGIST PROVIDED HISTORY: Illness/Other Reason for exam: chest pain Cancer History: Thyroid cancer Surgery, RadiationHistory: Thyroidectomy Encounter Type: Initial Additional signs and symptoms: back pain ORDERING SYSTEM PROVIDED DIAGNOSIS CODES: COMPARISON: 01/08/2025 FINDINGS: Heart and vascularity are unremarkable. Lungs are free of focal infiltrates. Grossly no bony abnormality is appreciated. EKG leads overlie the chest. IMPRESSION: No acute heart or lung disease identified. Workstation ID: [id number] Dictated by: ELIAZAR VILLAR on WedMar 02, 2025 12:50:49 PM EDT Transcribed by: ELIAZAR VILLAR on WedMar 02, 2025 12:50:49 PM EDT Finalized by: ELIAZAR VILLAR on WedMar 02, 2025 12:50:49 PM EDT Normal [facility] Comment on above: Order Comment: Injur y/Trauma or Illness?:Illness/OtherHow long have you had these symptoms (acute/chronic)?:AcuteReason for exam?:chest painHistory of cancer?:Thyroid cancerSurgeries, chemotherapy, or radiation?:ThyroidectomyType of Exam?:InitialAdditional signs and symptoms?:back pain CT KIDNEY STONEon 01-14-2025 CT KIDNEY STONE EXAMINATION: CT KIDNEY STONE HISTORY: ORDERING SYSTEM PROVIDED HISTORY: Urolithiasis, symptomatic, TECHNOLOGIST PROVIDED HISTORY: Illness/Other Reason for exam: Urolithiasis, symptomatic Encounter Type: Initial Additional signs and symptoms: pain ORDERING SYSTEM PROVIDED DIAGNOSIS CODES: COMPARISON: None TECHNIQUE: Dose reduction techniques were achieved by using automated exposure control and/or adjustment of mA and/or kV according to patient size and/or use of iterative reconstruction technique. Noncontrast images from the lung bases through the symphysis CONTRAST: None FINDINGS: The lung bases are clear. Cholecystectomy is noted. Included portions of the liver and spleen appear normal. The pancreas and adrenals are unremarkable. The right kidney appears normal. Suspected nonobstructing sub mm calculi in the left kidney. The left kidney otherwise appears normal. No hydronephrosis or ureteral calculus. No upper abdominal or periaortic lymphadenopathy. Scans of the pelvis show no mass, lymphadenopathy or free fluid. Hysterectomy noted. No bladder wall thickening or bladder calculus. The stomach and small bowel loops appear normal. No small bowel obstruction. No free air. The appendix is normal. Negative for colitis or diverticulitis. No hernias are identified. Bony structures are unremarkable. IMPRESSION: Possible tiny nonobstructing sub mm left renal calculi. Negative for hydronephrosis or ureteral calculus. Otherwise unremarkable noncontrast CT study. Workstation ID: [id number] Dictated by: ELIAZAR BEAN on WedJan 14, 2025 11:54:46 AM EDT Transcribed by: ELIAZAR BEAN on [place] Jan 14, 2025 11:54:46 AM EDT Finalized by: ELIAZAR BEAN on [place] Jan 14, 2025 11:54:46 AM EDT [facility] Comment on above: Order Comment: [facility] has implemented the eGFR calculation approach that does not have a coefficient for race that conforms to the NKF-ASN Task Force Recommendations. ED Prov Noteon 01-14-2025 ED Prov Note ED PROVIDER NOTE [facility] EMERGENCY [facility] NAME: Damaris Dykes AGE: 39 y.o. : 1985 VISIT DATE: 01/14/2025 CSN: [id number] PCP: Michelle Rain, BEATRICE Chief Complaint Patient presents with Abdominal Pain Chief complaint abdominal pain History of present illness 3-year-old female who is here with left-sided flank pain radiating to left lower quadrant with anorexia nausea hurts to urinate. She is well-known to emergency department for bronchitis and hypokalemia. 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, side unknown Dumping syndrome Gastric Gallstones GERD (gastroesophageal reflux disease) Heart palpitations 09/2024 wearing heart monitor 09-12-2024 in preop Heel spur Hyperlipidemia Hypertension Knee dislocation left MDD (major depressive disorder) Obesity 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, normal COLONOSCOPY N/A 05/14/2023 with biopsy; Surgeon: Brandon Norton MD COLPOSCOPY DILATION AND CURETTAGE OF UTERUS ESOPHAGOGASTRODUODENOSCOPY 02/24/[address] [facility], mild chronic inactive gastritis with rare h-pylori HYSTERECTOMY ROBOTIC XI WITH BILATERAL SALPINGECTOMY N/A 09/12/2024 Procedure: HYSTERECTOMY ROBOTIC XI WITH BILATERAL SALPINGECTOMY; Surgeon: Tory Vela MD; Location: Main DC; Service: [employer]; Laterality: N/A; Dr. Montoya proctoring LUNG SURGERY Left early 20's, filled with fluid MULTIPLE TOOTH EXTRACTIONS wears dentures PIERCINGS AND TATTOOS PLANTAR FASCIA SURGERY Bilateral THORACENTESIS THYROIDECTOMY Bilateral 08/04/2023 TOTAL THYROIDECTOMY-papillary carcinoma classic subtype pT1a pN......Dr. Gilles Kim US THYROID BIOPSY WITH FNA 06/08/2023 US THYROID BIOPSY WITH FNA 06/08/2023 Danny Arevalo DO ULTRASOUND Family History Problem Relation Age of Onset Arthritis Mother Diabetes Mother edentulous Achalasia Mother Asthma Mother with atopy Hypertension Mother Other (psychiatric disorder) Mother Stroke Mother Thyroid disease Mother Fibromyalgia Mother Sleep apnea Mother Restless legs syndrome Mother Peripheral vascular disease Mother Heart failure Mother Hypertension Father Peripheral vascular disease Father Achalasia Maternal Grandmother Alzheimer's disease Maternal Grandmother COPD Maternal Grandmother Coronary artery disease Maternal Grandmother Heart attack Maternal Grandmother Diabetes Maternal Grandmother Rheum arthritis Maternal Grandmother Breast cancer Paternal Grandmother Asthma Brother atopy Colon cancer Maternal Great-Grandfather unknown age of onset Rectal cancer Neg Hx Social History [1] Previous Medications Medication Sig acetaminophen (TYLENOL ER) 650 MG CR tablet Take 1 (one) tablet (650 mg total) by mouth every 8 (eight) hours as needed for pain . albuterol 90 mcg/actuation inhaler Inhale 2 (two) puffs every 6 (six) hours as needed . ascorbic acid, vitamin C, (vitamin C) 1000 MG tablet Take 1 (one) tablet (1,000 mg total) by mouth daily . cyanocobalamin (B-12) 1,000 mcg/mL injection Inject 1 mL (1,000 mcg total) under the skin every 30 (thirty) days . cyclobenzaprine (FLEXERIL) 10 MG tablet Take 1 (one) tablet (10 mg total) by mouth 3 (three) times a day as needed for muscle spasms . ferrous sulfate 325 (65 FE) MG tablet Take 1 (one) tablet (325 mg total) by mouth 2 (two) times a day . hydrOXYzine (ATARAX) 50 MG tablet Take 1 (one) tablet (50 mg total) by mouth every 6 (six) hours . ibuprofen (ADVIL,MOTRIN) 600 MG tablet Take 1 (one) tablet (600 mg total) by mouth every 6 (six) hours as needed for pain . lamoTRIgine (LAMICTAL) 100 MG tablet Take 1 (one) tablet (100 mg total) by mouth daily . levothyroxine (SYNTHROID, LEVOTHROID) 200 MCG tablet Take 1 (one) tablet (200 mcg total) by mouth daily on an empty stomach, with water, 1 hr before food / drinks / meds, and 4 hrs apart from calcium, magnesium, iron, multivitamin supplements. Take double dose next day if miss one day . magnesium oxide (MAG (more content not included)... Normal [facility] POC BASIC METABOLIC PANEL Elieser De León 01-14-2025 Chloride [Moles/Vol] 100 mmol/L Normal 98-108 [facility] Comment on above: Order Comment: [facility] has implemented the eGFR calculation approach that does not have a coefficient for race that conforms to the NKF-ASN Task Force Recommendations. CO2 [Moles/Vol] 31 mmol/L Normal 21-32 [facility] Comment on above: Order Comment: [facility] has implemented the eGFR calculation approach that does not have a coefficient for race that conforms to the NKF-ASN Task Force Recommendations. Creatinine [Mass/Vol] 0.77 mg/dL Normal 0.40-1.10 [facility] Comment on above: Order Comment: [facility] has implemented the eGFR calculation approach that does not have a coefficient for race that conforms to the NKF-ASN Task Force Recommendations. Glucose [Mass/Vol] 109 mg/dL High 65-99 [facility] Comment on above: Order Comment: [facility] has implemented the eGFR calculation approach that does not have a coefficient for race that conforms to the NKF-ASN Task Force Recommendations. POC GFR 100 mL/min/1.73 m2 Normal >=60 [facility] Comment on above: Order Comment: [facility] has implemented the eGFR calculation approach that does not have a coefficient for race that conforms to the NKF-ASN Task Force Recommendations. Result Comment: Rigo mated GFR was calculated using the 2020 CKD-EPI creatinine equation. POC IONIZED CALCIUM 4.7 mg/dL Normal 4.5-5.3 [facility] Comment on above: Order Comment: [facility] has implemented the eGFR calculation approach that does not have a coefficient for race that conforms to the NKF-ASN Task Force Recommendations. Potassium [Moles/Vol] 2.9 mmol/L Low 3.5-5.1 [facility] Comment on above: Order Comment: [facility] has implemented the eGFR calculation approach that does not have a coefficient for race that conforms to the NKF-ASN Task Force Recommendations. Sodium [Moles/Vol] 139 mmol/L Normal 135-145 [facility] Comment on above: Order Comment: [facility] has implemented the eGFR calculation approach that does not have a coefficient for race that conforms to the NKF-ASN Task Force Recommendations. Urea nitrogen [Mass/Vol] 5 mg/dL Low 8-25 [facility] Comment on above: Order Comment: [facility] has implemented the eGFR calculation approach that does not have a coefficient for race that conforms to the NKF-ASN Task Force Recommendations. POC CBC AND DIFFERENTIALon 0 01-14-2025 BASOPHILS ABSOLUTE COUNT 0.05 K/mcL Normal 0.00-0.30 [facility] Basophils/100 WBC (Bld) 0.6 % Normal [facility] Eosinophils (Bld) [#/Vol] 0.15 10*3/uL Normal 0.00-0.50 [facility] Eosinophils/100 WBC (Bld) 1.8 % Normal [facility] Erythrocyte distribution width (RBC) [Ratio] 12.9 % Normal 11.6-14.8 [facility] Hematocrit (Bld) [Volume fraction] 45.1 % Normal 36.0-46.0 [facility] Hemoglobin (Bld) [Mass/Vol] 15.1 g/dL Normal 12.0-16.0 [facility] IG ABSOLUTE 0.01 K/mcL Normal 0.00-0.30 [facility] IG PERCENT 0.10 % Normal [facility] Comment on above: Result Comment: The IG parameter is the percentage of metamyelocytes, myelocytes and promyelocytes. An immature granulocyte count (IG) of 1% or more suggests the possibility of infection, an IG count of 3% is very likely related to an infection. Lymphocytes (Bld) [#/Vol] 2.46 10*3/uL Normal 0.90-4.00 [facility] Lymphocytes/100 WBC (Bld) 29.6 % Normal [facility] MCH (RBC) [Entitic mass] 30.1 pg Normal 26.0-34.0 [facility] MCV (RBC) [Entitic vol] 89.8 fL Normal 80.0-100.0 [facility] MEAN CORPUSCULAR HEMOGLOBIN CONC 33.5 g/dL Normal 31.0-37.0 [facility] Monocytes (Bld) [#/Vol] 0.66 10*3/uL Normal 0.30-0.90 [facility] Monocytes/100 WBC (Bld) 8.0 % Normal [facility] NEUTROPHILS ABSOLUTE COUNT 4.97 K/mcL Normal 1.70-7.00 [facility] Neutrophils/100 WBC (Bld) 59.9 % Normal [facility] Platelet mean volume (Bld) [Entitic vol] 9.6 fL Normal 9.4-12.4 [facility] Platelets (d) [#/Vol] 377 10*3/uL Normal 150-400 [facility] RBC (d) [#/Vol] 5.02 10*6/uL Normal 4.00-5.20 [facility] WBC (Bld) [#/Vol] 8.30 10*3/uL Normal 4.50-11.00 [facility] POC URINALYSIS DIPSTICK,AUTO - RALSon 01-14-2025 POC BILIRUBIN, URINE Small Abnormal Negative [facility] POC BLOOD, URINE Trace-intact Abnormal Negative [facility] POC GLUCOSE, URINE Negative Normal Negative [facility] POC KETONES, URINE 15 mg/dL Abnormal Negative [facility] POC LEUKOCYTE ESTERASE, URINE Negative Normal Negative [facility] POC NITRITE, URINE Negative Normal Negative [facility] POC PH, URINE 5.5 Normal 5.0-7.0 [facility] POC SPECIFIC GRAVITY >= High 1.005-1.025 [facility] POC UROBILINOGEN 0.2 mg/dL Normal < 2.0 [facility] Protein (U) [Mass/Vol] 30 mg/dL Abnormal Negative [facility] ED Prov Noteon 01-08-2025 ED Prov Note ED PROVIDER NOTE [facility] EMERGENCY DEPARTMENT NAME: Damaris Dykes AGE: 39 y.o. : 1985 VISIT DATE: 01/08/2025 CSN: [id number] PCP: Michelle Rain, CENTRAL SUPPLY MANAGER Chief Complaint Patient presents with Cough Chief complaint chest tightness History of present illness 39-year-old female who was recently treated for bronchitis with Medrol antibiotic and Mucinex still short of breath now she is having paresthesias along the chest and arms. When she gets the symptoms typically her potassium is low and is here for assessment. 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, normal COLONOSCOPY N/A 05/14/2023 with biopsy; Surgeon: Brandon Norton MD COLPOSCOPY DILATION AND CURETTAGE OF UTERUS ESOPHAGOGASTRODUODENOSCOPY 02/24/[address] [facility], mild chronic inactive gastritis with rare h-pylori HYSTERECTOMY ROBOTIC XI WITH BILATERAL SALPINGECTOMY N/A 09/12/2024 Procedure: HYSTERECTOMY ROBOTIC XI WITH BILATERAL SALPINGECTOMY; Surgeon: Tory Vela MD; Location: Main OR; Service: [employer]; Laterality: N/A; Dr. Montoya proctoring LUNG SURGERY Left early 20's, filled with fluid MULTIPLE TOOTH EXTRACTIONS wears dentures PIERCINGS AND TATTOOS PLANTAR FASCIA SURGERY Bilateral THORACENTESIS THYROIDECTOMY Bilateral 08/04/2023 TOTAL THYROIDECTOMY-papillary carcinoma classic subtype pT1a pN......Dr. Gilles Kim THYROID BIOPSY WITH FNA 06/08/2023 THYROID BIOPSY WITH FNA 06/08/2023 Danny Arevalo DO ULTRASOUND Family History Problem Relation Age of Onset Arthritis Mother Diabetes Mother edentulous Achalasia Mother Asthma Mother with atopy Hypertension Mother Other (psychiatric disorder) Mother Stroke Mother Thyroid disease Mother Fibromyalgia Mother Sleep apnea Mother Restless legs syndrome Mother Peripheral vascular disease Mother Heart failure Mother Hypertension Father Peripheral vascular disease Father Achalasia Maternal Grandmother Alzheimer's disease Maternal Grandmother COPD Maternal Grandmother Coronary artery disease Maternal Grandmother Heart attack Maternal Grandmother Diabetes Maternal Grandmother Rheum arthritis Maternal Grandmother Breast cancer Paternal Grandmother Asthma Brother atopy Colon cancer Maternal Great-Grandfather unknown age of onset Rectal cancer Neg Hx Social History [1] Previous Medications Medication Sig acetaminophen (TYLENOL ER) 650 MG CR tablet Take 1 (one) tablet (650 mg total) by mouth every 8 (eight) hours as needed for pain . albuterol 90 mcg/actuation inhaler Inhale 2 (two) puffs every 6 (six) hours as needed . ascorbic acid, vitamin C, (vitamin C) 1000 MG tablet Take 1 (one) tablet (1,000 mg total) by mouth daily . cyanocobalamin (B-12) 1,000 mcg/mL injection Inject 1 mL (1,000 mcg total) under the skin every 30 (thirty) days . cyclobenzaprine (FLEXERIL) 10 MG tablet Take 1 (one) tablet (10 mg total) by mouth 3 (three) times a day as needed for muscle spasms . ferrous sulfate 325 (65 FE) MG tablet Take 1 (one) tablet (325 mg total) by mouth 2 (two) times a day . hydrOXYzine (ATARAX) 50 MG tablet Take 1 (one) tablet (50 mg total) by mouth every 6 (six) hours . ibuprofen (ADVIL,MOTRIN) 600 MG tablet Take 1 (one) tablet (600 mg total) by mouth every 6 (six) hours as needed for pain . lamoTRIgine (LAMICTAL) 100 MG tablet Take 1 (one) tablet (100 mg total) by mouth daily . levothyroxine (SYNTHROID, LEVOTHROID) 200 MCG tablet Take 1 (one) tablet (200 mcg total) by mouth daily on an empty stomach, with water, 1 hr before food / drinks / meds, and 4 hrs apart from calcium, magnesium, iron, multivitamin supplements. Take double dose next day if miss one (more content not included)... Normal [facility] POC BASIC METABOLIC PANEL - [facility] 01-08-2025 Chloride [Moles/Vol] 99 mmol/L Normal 98-108 [facility] Comment on above: Order Comment: Criti toney result acted upon time of test. Test performed at bedside. [facility] has implemented the eGFR calculation approach that does not have a coefficient for race that conforms to the NKF-ASN Task Force Recommendations. CO2 [Moles/Vol] 34 mmol/L High 21-32 [facility] Comment on above: Order Comment: Criti otney result acted upon time of test. Test performed at bedside. [facility] has implemented the eGFR calculation approach that does not have a coefficient for race that conforms to the NKF-ASN Task Force Recommendations. Creatinine [Mass/Vol] 0.64 mg/dL Normal 0.40-1.10 [facility] Comment on above: Order Comment: Criti toney result acted upon time of test. Test performed at bedside. [facility] has implemented the eGFR calculation approach that does not have a coefficient for race that conforms to the NKF-ASN Task Force Recommendations. Glucose [Mass/Vol] 95 mg/dL Normal 65-99 [facility] Comment on above: Order Comment: Criti toney result acted upon time of test. Test performed at bedside. [facility] has implemented the eGFR calculation approach that does not have a coefficient for race that conforms to the NKF-ASN Task Force Recommendations. POC GFR 115 mL/min/1.73 m2 Normal >=60 [facility] Comment on above: Order Comment: Criti toney result acted upon time of test. Test performed at bedside. [facility] has implemented the eGFR calculation approach that does not have a coefficient for race that conforms to the NKF-ASN Task Force Recommendations. Result Comment: Rigo mated GFR was calculated using the 2020 CKD-EPI creatinine equation. POC IONIZED CALCIUM 4.3 mg/dL Low 4.5-5.3 [facility] Comment on above: Order Comment: Criti toney result acted upon time of test. Test performed at bedside. [facility] has implemented the eGFR calculation approach that does not have a coefficient for race that conforms to the NKF-ASN Task Force Recommendations. Potassium [Moles/Vol] 2.5 mmol/L Off scale low 3.5-5.1 [facility] Comment on above: Order Comment: Criti toney result acted upon time of test. Test performed at bedside. [facility] has implemented the eGFR calculation approach that does not have a coefficient for race that conforms to the NKF-ASN Task Force Recommendations. Sodium [Moles/Vol] 142 mmol/L Normal 135-145 [facility] Comment on above: Order Comment: Criti toney result acted upon time of test. Test performed at bedside. [facility] has implemented the eGFR calculation approach that does not have a coefficient for race that conforms to the NKF-ASN Task Force Recommendations. Urea nitrogen [Mass/Vol] 5 mg/dL Low 8-25 [facility] Comment on above: Order Comment: Criti toney result acted upon time of test. Test performed at bedside. [facility] has implemented the eGFR calculation approach that does not have a coefficient for race that conforms to the NKF-ASN Task Force Recommendations. POC CBC AND DIFFERENTIALon 0 01-08-2025 BASOPHILS ABSOLUTE COUNT 0.04 K/mcL Normal 0.00-0.30 [facility] Basophils/100 WBC (Bld) 0.5 % Normal [facility] Eosinophils (Bld) [#/Vol] 0.16 10*3/uL Normal 0.00-0.50 [facility] Eosinophils/100 WBC (Bld) 2.1 % Normal [facility] Erythrocyte distribution width (RBC) [Ratio] 12.8 % Normal 11.6-14.8 [facility] Hematocrit (Bld) [Volume fraction] 42.5 % Normal 36.0-46.0 [facility] Hemoglobin (Bld) [Mass/Vol] 14.2 g/dL Normal 12.0-16.0 [facility] IG ABSOLUTE 0.00 K/mcL Normal 0.00-0.30 [facility] IG PERCENT 0.00 % Normal [facility] Comment on above: Result Comment: The IG parameter is the percentage of metamyelocytes, myelocytes and promyelocytes. An immature granulocyte count (IG) of 1% or more suggests the possibility of infection, an IG count of 3% is very likely related to an infection. Lymphocytes (Bld) [#/Vol] 2.05 10*3/uL Normal 0.90-4.00 [facility] Lymphocytes/100 WBC (Bld) 26.3 % Normal [facility] MCH (RBC) [Entitic mass] 29.8 pg Normal 26.0-34.0 [facility] MCV (RBC) [Entitic vol] 89.3 fL Normal 80.0-100.0 [facility] MEAN CORPUSCULAR HEMOGLOBIN CONC 33.4 g/dL Normal 31.0-37.0 [facility] Monocytes (Bld) [#/Vol] 0.79 10*3/uL Normal 0.30-0.90 [facility] Monocytes/100 WBC (Bld) 10.1 % Normal [facility] NEUTROPHILS ABSOLUTE COUNT 4.75 K/mcL Normal 1.70-7.00 [facility] Neutrophils/100 WBC (Bld) 61.0 % Normal [facility] Platelet mean volume (Bld) [Entitic vol] 9.7 fL Normal 9.4-12.4 [facility] Platelets (Bld) [#/Vol] 303 10*3/uL Normal 150-400 [facility] RBC (Bld) [#/Vol] 4.76 10*6/uL Normal 4.00-5.20 [facility] WBC (Bld) [#/Vol] 7.79 10*3/uL Normal 4.50-11.00 [facility] POC TROPONIN I RALSon 2024 POC TROPONIN I < Normal <0.05 [facility] XR CHEST AP/PA AND LATon XR CHEST AP/PA AND LAT EXAMINATION: XR CHEST AP/PA AND LAT 01/08/2025 6:14 pm HISTORY: ORDERING SYSTEM PROVIDED HISTORY: Cough congestion, TECHNOLOGIST PROVIDED HISTORY: Illness/Other Reason for exam: cough for several days and worsening Cancer History: Thyroid cancer Surgery, RadiationHistory: Thyroidectomy Encounter Type: Initial Additional signs and symptoms: na ORDERING SYSTEM PROVIDED DIAGNOSIS CODES: COMPARISON: August 02, 2024. FINDINGS: Heart and mediastinal contours are normal. The lungs and pleural spaces are clear. IMPRESSION: No active disease. Workstation ID: [id number] Dictated by: PABLO WEBB on WedJan 08, 2025 7:58:04 PM EDT Transcribed by: PABLO WEBB on WedJan 08, 2025 7:58:04 PM EDT Finalized by: PABLO WEBB on WedJan 08, 2025 7:58:04 PM EDT Normal [facility] Comment on above: Order Comment: Injur y/Trauma or Illness?:Illness/OtherHow long have you had these symptoms (acute/chronic)?:AcuteReason for exam?:cough for several days and worseningHistory of cancer?:Thyroid cancerSurgeries, chemotherapy, or radiation?:ThyroidectomyType of Exam?:InitialAdditional signs and symptoms?:na ED Prov Noteon 12-14-2024 ED Prov Note ED PROVIDER NOTE [facility] EM[facility] NAME: Damaris Dykes AGE: 39 y.o. : 1985 VISIT DATE: 12/14/2024 CSN: [id number] PCP: Michelle Rain, CENTRAL SUPPLY MANAGER Chief Complaint Patient presents with Cough Chest Discomfort Chief complaint cough History of present illness 39-year-old female has a past medical history of bronchitis. She is here with a 2-day history of nonproductive cough with mucopurulent discharge. This has been present and now saw her primary care was placed on Tessalon Perles now is here with ongoing cough. 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, normal COLONOSCOPY N/A 05/14/2023 with biopsy; Surgeon: Brandon Norton MD COLPOSCOPY DILATION AND CURETTAGE OF UTERUS ESOPHAGOGASTRODUODENOSCOPY 02/24/[address] [facility], mild chronic inactive gastritis with rare h-pylori HYSTERECTOMY ROBOTIC XI WITH BILATERAL SALPINGECTOMY N/A 09/12/2024 Procedure: HYSTERECTOMY ROBOTIC XI WITH BILATERAL SALPINGECTOMY; Surgeon: Tory Vela MD; Location: Main OR; Service: [employer]; Laterality: N/A; Dr. Montoya proctoring LUNG SURGERY Left early 20's, filled with fluid MULTIPLE TOOTH EXTRACTIONS wears dentures PIERCINGS AND TATTOOS PLANTAR FASCIA SURGERY Bilateral THORACENTESIS THYROIDECTOMY Bilateral 08/04/2023 TOTAL THYROIDECTOMY-papillary carcinoma classic subtype pT1a pN......Dr. Gilles Kim US THYROID BIOPSY WITH FNA 06/08/2023 US THYROID BIOPSY WITH FNA 06/08/2023 Danny Arevalo DO [facility] ULTRASOUND Family History Problem Relation Age of Onset Arthritis Mother Diabetes Mother edentulous Achalasia Mother Asthma Mother with atopy Hypertension Mother Other (psychiatric disorder) Mother Stroke Mother Thyroid disease Mother Fibromyalgia Mother Sleep apnea Mother Restless legs syndrome Mother Peripheral vascular disease Mother Heart failure Mother Hypertension Father Peripheral vascular disease Father Achalasia Maternal Grandmother Alzheimer's disease Maternal Grandmother COPD Maternal Grandmother Coronary artery disease Maternal Grandmother Heart attack Maternal Grandmother Diabetes Maternal Grandmother Rheum arthritis Maternal Grandmother Breast cancer Paternal Grandmother Asthma Brother atopy Colon cancer Maternal Great-Grandfather unknown age of onset Rectal cancer Neg Hx Social History [1] Previous Medications Medication Sig acetaminophen (TYLENOL ER) 650 MG CR tablet Take 1 (one) tablet (650 mg total) by mouth every 8 (eight) hours as needed for pain . ascorbic acid, vitamin C, (vitamin C) 1000 MG tablet Take 1 (one) tablet (1,000 mg total) by mouth daily . benzonatate (TESSALON) 100 MG capsule Take 1 (one) capsule (100 mg total) by mouth 3 (three) times a day as needed for cough . cyanocobalamin (B-12) 1,000 mcg/mL injection Inject 1 mL (1,000 mcg total) under the skin every 30 (thirty) days . cyclobenzaprine (FLEXERIL) 10 MG tablet Take 1 (one) tablet (10 mg total) by mouth 3 (three) times a day as needed for muscle spasms . ferrous sulfate 325 (65 FE) MG tablet Take 1 (one) tablet (325 mg total) by mouth 2 (two) times a day . hydrOXYzine (ATARAX) 50 MG tablet Take 1 (one) tablet (50 mg total) by mouth every 6 (six) hours . ibuprofen (ADVIL,MOTRIN) 600 MG tablet Take 1 (one) tablet (600 mg total) by mouth every 6 (six) hours as needed for pain . lamoTRIgine (LAMICTAL) 100 MG tablet Take 1 (one) tablet (100 mg total) by mouth daily . levothyroxine (SYNTHROID, LEVOTHROID) 200 MCG tablet Take 1 (one) tablet (200 mcg total) by mouth daily on an empty stomach, with water, 1 hr before food / drinks / meds, and 4 hrs apart from calcium, magnesium, iron, multivitamin supplements. Take double dose next day if miss one day . magnesium (more content not included)... Normal [facility] ED Prov Noteon 10-30-2024 ED Prov Note [facility] ATTENDING NOTE: NAME: Damaris Dykes CSN: [id number] 39 y.o. PCP: Michelle Rain CNP History: Chief Complaint: Nausea HPI: The history was obtained from the patient. Damaris is a 39 y.o. female who presents with a chief complaint of Nausea. As per the patient she has been sick for about 2 weeks with nausea vomiting diarrhea unable to keep anything down also having some upper abdominal burning has a history of dumping syndrome abnormal electrolytes hypertension hyperlipidemia and wanted to get checked out. 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, normal COLONOSCOPY N/A 05/14/2023 with biopsy; Surgeon: Brandon Norton MD COLPOSCOPY DILATION AND CURETTAGE OF UTERUS ESOPHAGOGASTRODUODENOSCOPY 02/24/[address] [facility], mild chronic inactive gastritis with rare h-pylori HYSTERECTOMY ROBOTIC XI WITH BILATERAL SALPINGECTOMY N/A 09/12/2024 Procedure: HYSTERECTOMY ROBOTIC XI WITH BILATERAL SALPINGECTOMY; Surgeon: Tory Vela MD; Location: Main OR; Service: T[employer]-Rob[employer]; Laterality: N/A; Dr. Montoya proctoring LUNG SURGERY Left early 20's, filled with fluid MULTIPLE TOOTH EXTRACTIONS wears dentures PIERCINGS AND TATTOOS PLANTAR FASCIA SURGERY Bilateral THORACENTESIS THYROIDECTOMY Bilateral 08/04/2023 TOTAL THYROIDECTOMY-papillary carcinoma classic subtype pT1a pN......Dr. Gilles Kim US THYROID BIOPSY WITH FNA 06/08/2023 US THYROID BIOPSY WITH FNA 06/08/2023 aDnny Arevalo DO ULTRASOUND FAM. Hx: Family History Problem Relation Age of Onset Arthritis Mother Diabetes Mother edentulous Achalasia Mother Asthma Mother with atopy Hypertension Mother Other (psychiatric disorder) Mother Stroke Mother Thyroid disease Mother Fibromyalgia Mother Sleep apnea Mother Restless legs syndrome Mother Peripheral vascular disease Mother Hypertension Father Peripheral vascular disease Father Achalasia Maternal Grandmother Alzheimer's disease Maternal Grandmother COPD Maternal Grandmother Coronary artery disease Maternal Grandmother Heart attack Maternal Grandmother Diabetes Maternal Grandmother Rheum arthritis Maternal Grandmother Breast cancer Paternal Grandmother Asthma Brother atopy Colon cancer Maternal Great-Grandfather unknown age of onset Rectal cancer Neg Hx SOC. Hx: Social History [1] MEDs: Previous Medications Medication Sig acetaminophen (TYLENOL ER) 650 MG CR tablet Take 1 (one) tablet (650 mg total) by mouth every 8 (eight) hours as needed for pain . ascorbic acid, vitamin C, (vitamin C) 1000 MG tablet Take 1 (one) tablet (1,000 mg total) by mouth daily . (Patient taking differently: Take 1 (one) tablet (1,000 mg total) by mouth daily in the evening .) cyclobenzaprine (FLEXERIL) 10 MG tablet Take 1 (one) tablet (10 mg total) by mouth 3 (three) times a day as needed for muscle spasms . ferrous sulfate 325 (65 FE) MG tablet Take 1 (one) tablet (325 mg total) by mouth daily with breakfast . (Patient taking differently: Take 1 (one) tablet (325 mg total) by mouth daily in the evening .) ibuprofen (ADVIL,MOTRIN) 600 MG tablet Take 1 (one) tablet (600 mg total) by mouth every 6 (six) hours as needed for pain . lamoTRIgine (LAMICTAL) 100 MG tablet Take 1 (one) tablet (100 mg total) by mouth daily . (Patient taking differently: Take 1 (one) tablet (100 mg total) by mouth daily in the evening .) levothyroxine (SYNTHROID, LEVOTHROID) 200 MCG tablet Take 1 (one) tablet (200 mcg total) by mouth daily on an empty stomach, with water, 1 hr before food / drinks / meds, and 4 hrs apart from calcium, magnesium, iron, multivitamin supplements. Take double dose next day if miss one day . magnesium oxide (MAG-OX) 400 mg (24 (more content not included)... Normal [facility] POC CBC AND DIFFERENTIALon 0 10-30-2024 BASOPHILS ABSOLUTE COUNT 0.02 K/mcL Normal 0.00-0.30 [facility] Basophils/100 WBC (Bld) 0.2 % Normal [facility] Eosinophils (Bld) [#/Vol] 0.11 10*3/uL Normal 0.00-0.50 [facility] Eosinophils/100 WBC (Bld) 1.1 % Normal [facility] Erythrocyte distribution width (RBC) [Ratio] 12.4 % Normal 11.6-14.8 [facility] Hematocrit (Bld) [Volume fraction] 44.2 % Normal 36.0-46.0 [facility] Hemoglobin (Bld) [Mass/Vol] 14.7 g/dL Normal 12.0-16.0 [facility] IG ABSOLUTE 0.01 K/mcL Normal 0.00-0.30 [facility] IG PERCENT 0.10 % Normal [facility] Comment on above: Result Comment: The IG parameter is the percentage of metamyelocytes, myelocytes and promyelocytes. An immature granulocyte count (IG) of 1% or more suggests the possibility of infection, an IG count of 3% is very likely related to an infection. Lymphocytes (Bld) [#/Vol] 2.20 10*3/uL Normal 0.90-4.00 [facility] Lymphocytes/100 WBC (Bld) 21.6 % Normal [facility] MCH (RBC) [Entitic mass] 30.1 pg Normal 26.0-34.0 [facility] MCV (RBC) [Entitic vol] 90.4 fL Normal 80.0-100.0 [facility] MEAN CORPUSCULAR HEMOGLOBIN CONC 33.3 g/dL Normal 31.0-37.0 [facility] Monocytes (Bld) [#/Vol] 0.66 10*3/uL Normal 0.30-0.90 [facility] Monocytes/100 WBC (Bld) 6.5 % Normal [facility] NEUTROPHILS ABSOLUTE COUNT 7.19 K/mcL High 1.70-7.00 [facility] Neutrophils/100 WBC (Bld) 70.5 % Normal [facility] Platelet mean volume (Bld) [Entitic vol] 9.8 fL Normal 9.4-12.4 [facility] Platelets (Bld) [#/Vol] 335 10*3/uL Normal 150-400 [facility] RBC (Bld) [#/Vol] 4.89 10*6/uL Normal 4.00-5.20 [facility] WBC (Bld) [#/Vol] 10.19 10*3/uL Normal 4.50-11.00 [facility] POC LIVER PANEL PLUS [facility] 10-30-2024 Albumin [Mass/Vol] 4.7 g/dL Normal 3.2-5.2 [facility] ALP [Catalytic activity/Vol] 52 U/L Normal 40-140 [facility] ALT [Catalytic activity/Vol] 8 U/L Normal 0-40 [facility] Amylase [Catalytic activity/Vol] 32 U/L Normal 25-115 [facility] Amylase [Catalytic activity/Vol] 15 U/L Normal 7-33 [facility] AST [Catalytic activity/Vol] 25 U/L Normal 0-45 [facility] Bilirubin [Mass/Vol] 0.7 mg/dL Normal 0.0-1.3 [facility] Protein [Mass/Vol] 7.8 g/dL Normal 6.0-8.0 [facility] POC VBG (EPOC) WITH FULL ROSS [facility] BASE EXCESS, VENOUS 4.9 High -2.0-2.0 [facility] Comment on above: Order Comment: [facility] has implemented the eGFR calculation approach that does not have a coefficient for race that conforms to the NKF-ASN Task Force Recommendations. Specimens collected in a lithium heparin tube may show erroneous pO2, pCO2 and related calculations due to aerobic handling. If the most accurate venous blood gas results are needed, use a heparinized blood gas syringe. Critical result acted upon time of test. Test performed at bedside. CALCIUM IONIZED 4.3 mg/dL Low 4.5-5.3 [facility] Comment on above: Order Comment: [facility] has implemented the eGFR calculation approach that does not have a coefficient for race that conforms to the NKF-ASN Task Force Recommendations. Specimens collected in a lithium heparin tube may show erroneous pO2, pCO2 and related calculations due to aerobic handling. If the most accurate venous blood gas results are needed, use a heparinized blood gas syringe. Critical result acted upon time of test. Test performed at bedside. Chloride [Moles/Vol] 98 mmol/L Normal 98-108 [facility] Comment on above: Order Comment: [facility] has implemented the eGFR calculation approach that does not have a coefficient for race that conforms to the NKF-ASN Task Force Recommendations. Specimens collected in a lithium heparin tube may show erroneous pO2, pCO2 and related calculations due to aerobic handling. If the most accurate venous blood gas results are needed, use a heparinized blood gas syringe. Critical result acted upon time of test. Test performed at bedside. Creatinine [Mass/Vol] 0.82 mg/dL Normal 0.40-1.10 [facility] Comment on above: Order Comment: [facility] has implemented the eGFR calculation approach that does not have a coefficient for race that conforms to the NKF-ASN Task Force Recommendations. Specimens collected in a lithium heparin tube may show erroneous pO2, pCO2 and related calculations due to aerobic handling. If the most accurate venous blood gas results are needed, use a heparinized blood gas syringe. Critical result acted upon time of test. Test performed at bedside. Glucose [Mass/Vol] 93 mg/dL Normal 65-99 [facility] Comment on above: Order Comment: [facility] has implemented the eGFR calculation approach that does not have a coefficient for race that conforms to the NKF-ASN Task Force Recommendations. Specimens collected in a lithium heparin tube may show erroneous pO2, pCO2 and related calculations due to aerobic handling. If the most accurate venous blood gas results are needed, use a heparinized blood gas syringe. Critical result acted upon time of test. Test performed at bedside. HCO3 (Bld) [Moles/Vol] 30.7 mmol/L High 24.0-28.0 [facility] Comment on above: Order Comment: [facility] has implemented the eGFR calculation approach that does not have a coefficient for race that conforms to the NKF-ASN Task Force Recommendations. Specimens collected in a lithium heparin tube may show erroneous pO2, pCO2 and related calculations due to aerobic handling. If the most accurate venous blood gas results are needed, use a heparinized blood gas syringe. Critical result acted upon time of test. Test performed at bedside. Hematocrit (Bld) [Volume fraction] 47 % High 36-46 [facility] Comment on above: Order Comment: [facility] has implemented the eGFR calculation approach that does not have a coefficient for race that conforms to the NKF-ASN Task Force Recommendations. Specimens collected in a lithium heparin tube may show erroneous pO2, pCO2 and related calculations due to aerobic handling. If the most accurate venous blood gas results are needed, use a heparinized blood gas syringe. Critical result acted upon time of test. Test performed at bedside. HEMOGLOBIN, CALCULATED 15.9 g/dL Normal 12.0-16.0 [facility] Comment on above: Order Comment: [facility] has implemented the eGFR calculation approach that does not have a coefficient for race that conforms to the NKF-ASN Task Force Recommendations. Specimens collected in a lithium heparin tube may show erroneous pO2, pCO2 and related calculations due to aerobic handling. If the most accurate venous blood gas results are needed, use a heparinized blood gas syringe. Critical result acted upon time of test. Test performed at bedside. Oxygen saturation in Blood 46.8 % Normal 40.0-70.0 [facility] Comment on above: Order Comment: [facility] has implemented the eGFR calculation approach that does not have a coefficient for race that conforms to the NKF-ASN Task Force Recommendations. Specimens collected in a lithium heparin tube may show erroneous pO2, pCO2 and related calculations due to aerobic handling. If the most accurate venous blood gas results are needed, use a heparinized blood gas syringe. Critical result acted upon time of test. Test performed at bedside. PCO2 VENOUS 48.3 mm Hg Normal 41.0-51.0 [facility] Comment on above: Order Comment: [facility] has implemented the eGFR calculation approach that does not have a coefficient for race that conforms to the NKF-ASN Task Force Recommendations. Specimens collected in a lithium heparin tube may show erroneous pO2, pCO2 and related calculations due to aerobic handling. If the most accurate venous blood gas results are needed, use a heparinized blood gas syringe. Critical result acted upon time of test. Test performed at bedside. PH VENOUS 7.41 Normal 7.32-7.42 [facility] Comment on above: Order Comment: [facility] has implemented the eGFR calculation approach that does not have a coefficient for race that conforms to the NKF-ASN Task Force Recommendations. Specimens collected in a lithium heparin tube may show erroneous pO2, pCO2 and related calculations due to aerobic handling. If the most accurate venous blood gas results are needed, use a heparinized blood gas syringe. Critical result acted upon time of test. Test performed at bedside. PO2 VENOUS 26 mm Hg Normal 25-40 [facility] Comment on above: Order Comment: [facility] has implemented the eGFR calculation approach that does not have a coefficient for race that conforms to the NKF-ASN Task Force Recommendations. Specimens collected in a lithium heparin tube may show erroneous pO2, pCO2 and related calculations due to aerobic handling. If the most accurate venous blood gas results are needed, use a heparinized blood gas syringe. Critical result acted upon time of test. Test performed at bedside. POC GFR 93 mL/min/1.73 m2 Normal >=60 [facility] Comment on above: Order Comment: [facility] has implemented the eGFR calculation approach that does not have a coefficient for race that conforms to the NKF-ASN Task Force Recommendations. Specimens collected in a lithium heparin tube may show erroneous pO2, pCO2 and related calculations due to aerobic handling. If the most accurate venous blood gas results are needed, use a heparinized blood gas syringe. Critical result acted upon time of test. Test performed at bedside. Result Comment: Rigo mated GFR was calculated using the 2020 CKD-EPI creatinine equation. POC LACTATE 0.9 mmol/L Normal 0.6-2.0 [facility] Comment on above: Order Comment: [facility] has implemented the eGFR calculation approach that does not have a coefficient for race that conforms to the NKF-ASN Task Force Recommendations. Specimens collected in a lithium heparin tube may show erroneous pO2, pCO2 and related calculations due to aerobic handling. If the most accurate venous blood gas results are needed, use a heparinized blood gas syringe. Critical result acted upon time of test. Test performed at bedside. Potassium [Moles/Vol] 2.7 mmol/L Off scale low 3.5-5.1 [facility] Comment on above: Order Comment: [facility] has implemented the eGFR calculation approach that does not have a coefficient for race that conforms to the NKF-ASN Task Force Recommendations. Specimens collected in a lithium heparin tube may show erroneous pO2, pCO2 and related calculations due to aerobic handling. If the most accurate venous blood gas results are needed, use a heparinized blood gas syringe. Critical result acted upon time of test. Test performed at bedside. Sodium [Moles/Vol] 141 mmol/L Normal 135-145 [facility] Comment on above: Order Comment: [facility] has implemented the eGFR calculation approach that does not have a coefficient for race that conforms to the NKF-ASN Task Force Recommendations. Specimens collected in a lithium heparin tube may show erroneous pO2, pCO2 and related calculations due to aerobic handling. If the most accurate venous blood gas results are needed, use a heparinized blood gas syringe. Critical result acted upon time of test. Test performed at bedside. Urea nitrogen [Mass/Vol] 4 mg/dL Low 8-25 [facility] Comment on above: Order Comment: [facility] has implemented the eGFR calculation approach that does not have a coefficient for race that conforms to the NKF-ASN Task Force Recommendations. Specimens collected in a lithium heparin tube may show erroneous pO2, pCO2 and related calculations due to aerobic handling. If the most accurate venous blood gas results are needed, use a heparinized blood gas syringe. Critical result acted upon time of test. Test performed at bedside. Remove drug implant deviceon 10-06-2024 Tory Vela MD 10/07/2024 5:55 PM Remove drug implant device Date/Time: 10/06/2024 2:52 PM Performed by: Tory Vela MD Authorized by: Tory Vela MD Consent: Consent obtained: Verbal and written Consent given by: Patient Procedural risks discussed: Bleeding, possible continued pain, possible conversion to open surgery, damage to other organs, , possible loss of function, repeat procedure, failure rate and infection Patient questions answered: yes Patient agrees, verbalizes understanding, and wants to proceed: yes Educational handouts given: yes Instructions and paperwork completed: yes Indication: Indication: Presence of non-biodegradable drug delivery implant Pre-procedure: Pre-procedure timeout performed: yes Prepped with: alcohol 70% and povidone-iodine Local anesthetic: Lidocaine with epinephrine The site was cleaned and prepped in a sterile fashion: yes Procedure: Procedure: Removal Small stab incision was made in arm: yes Left/right: Left Comments: Stab incision made, nexplanon grasped with hemostat and removed intact. Steri-strip placed and hemostatic. Pt tolerated procedure well [facility] HEMOGLOBINon 09-13-2024 Hemoglobin (Bld) [Mass/Vol] 11.3 g/dL Low 12.0-16.0 [facility] Comment on above: Performed By: #### [id number] #### [facility] LAB [address] [place], [place] [address] Lul Brennan M.D. [id number] OP NOTEon 09-12-2024 OP NOTE Operative Note DATE: 09/12/2024 TIME: 8:28 PM PREOPERATIVE DIAGNOSIS: Abnormal uterine bleeding [N93.9] POSTOPERATIVE DIAGNOSIS: Post-Op Diagnosis Codes: * Abnormal uterine bleeding [N93.9] PROCEDURE(S) PERFORMED: Procedure(s): HYSTERECTOMY ROBOTIC XI WITH BILATERAL SALPINGECTOMY INDICATIONS: Damaris Dykes is a 39 y.o. G2, P2 who presents with a longstanding history of abnormal uterine bleeding which has been worsening over the past 2 to 3 years. She is attempted previous medications including a progesterone IUD Depo-Provera and Nexplanon without improvement of her bleeding concerns. An endometrial biopsy was noted to be benign. She desires definitive surgical management with hysterectomy at this time. Risks of surgery reviewed in great detail, risks of bleeding, infection, injury to surrounding organs, bowel, bladder, ureters, risks of anesthesia and blood clots discussed. All questions were answered and consent was obtained. FINDINGS: 8 to 9 cm uterus, normal-appearing fallopian tubes and ovaries SURGEON: Tory Vela MD OR STAFF: Wood Finisher: Consuelo Guadarrama RN Wood Finisher Relief: Vicky Garcia RN Scrub Person: Yanci Villa RN Scrub Person Assist: Mouna Samuel ST Float: Keisha Cassidy RN STFA: Sarika Hayes ST ANESTHESIA STAFF: Anesthesiologist: Tremaine Waldron MD Anesthesiologist Project Management Manager: Isaac Madsen AA; Tamika Johnson AA SPECIMEN(S): ID Type Source Tests Collected by Time Destination A : Tissue Uterus, Cervix, Bilateral Fallopian Tubes TISSUE EXAM Tory Vela MD 09/12/2024 1146 IMPLANTS: Implant Name Type Inv. Item Serial No. Drawbridge Operator Lot No. LRB No. Used Action HEMOSTAT 4 X 4IN SURGICEL SNOW STERL - [id number] HEMOSTAT 4 X 4IN SURGICEL SNOW STERL ETHICON [id number] N/A 1 Implanted ESTIMATED BLOOD LOSS: 25 mL UOP: 300 mL TYPE OF ANESTHESIA USED: General INTRA AND IMMEDIATE POST-OP COMPLICATIONS: None PROCEDURE: The patient was brought to the operating room where general anesthetic was placed and was found to be adequate. She was prepped and draped in normal sterile fashion and placed in the dorsolithotomy position and in [facility] stirrups. SCDs were on and running for the duration of the procedure and a Mejia catheter in place for the duration of the procedure. A weighted speculum was placed the anterior lip of the cervix was grasped with a tenaculum. Uterus was sounded and the cervix just slightly dilated for a Pauline uterine manipulator to be placed into the uterine cavity. Gloves were changed and attention then turned to the abdomen. An 8 mm supraumbilical skin incision was made with the scalpel and the Veress needle placed through this incision into the abdominal cavity with a low opening intra-abdominal pressure. The abdomen was progressively insufflated with CO2 gas. The Veress needle was removed and an 8 mm bladeless trocar and sleeve were placed through this incision into the abdomen with proper placement confirmed with the laparoscope. 3 additional port sites were placed greater than 8 cm apart from each other in the left upper quadrant, and 2 within the right upper quadrant, all under direct visualization. 1 of these port sites was a 12 m port site with air seal. The robot was then docked to the patient and appropriate instruments were installed. The right fallopian tube was grasped and identified and followed out to its fimbriated edge and the underlying mesosalpinx cut and cauterized away using the vessel sealer. This dissection continued up to the level of the uterine cornua. The utero-ovarian ligament was clamped transected and ligated at that time followed by the right round ligament. Dissection took place down the anterior leaf of the broad ligament towards the lower uterine segment and vesicovaginal tissue dissected so that a bladder flap would start to be created. The similar procedure was then carried out on the patient's left side. Using blunt and sharp dissection, bladder tissue was dissected away off of the cervix and uterine arteries able to be slightly skeletonized as well. Following this the uterine arteries were clamped transected and ligated bilaterally using the vessel sealer device followed by cauterizing and cutting of surrounding small supporting accessory vasculature. Bladder tissue at this point was felt to be safely mobilized away from the lower uterine segment. Using monopolar scissors,the cervical vaginal junction was then anterior with monopolar cautery and the underlying blue Betty cup able to be identified. Using this as a marker the cervical vaginal junction was incised circumferentially for the uterus to then be uterus and cervix to then be able to be completely excised and was then able to be removed vaginally with help of the Pauline manipulator. The vaginal cuff was then closed with a 2 oh STRATAFIX suture in a running manner across the entire length (more content not included)... Normal [facility] POC , URINE - RALSo n 09-12-2024 Beta HCG ( test) Ql (U) Negative Normal Negative [facility] Comment on above: Order Comment: Negat marta: Dilute urine specimens, as indicated by a low specific gravity (<1.010) may not contain representitive levels of hCG. If is still suspected, a serum test or repeat urine test using a first morning urine specimen should be considered. Performed By: #### [id number] #### LAB [address] [place], [place] [address] Lul Brennan M.D. [id number] TISSUE EXAMon 09-12-2024 TISSUE EXAM Surgical Pathology R eport Case: [id number] Authorizing Provider: Tory Vela MD Collected: 09/12/2024 11:46 AM Ordering Location: [facility] Periop Received: 09/12/2024 02:06 PM Pathologist: Iain Chester DO Specimen: Uterus, Cervix, Bilateral Fallopian Tubes A. Uterus, Cervix & Bilateral Fallopian Tubes, hysterectomy with bilateral salpingectomy: Uterus: Weakly proliferative endometrium. Cervix with mild nonspecific chronic inflammation. Negative for squamous intraepithelial lesion. Right Fallopian Tube: Without diagnostic abnormality. Left Fallopian Tube: Without diagnostic abnormality. Abnormal uterine bleeding [N93.9] A. The specimen is received in formalin, designated uterus, cervix, bilateral fallopian tubes, and consists of a uterus with attached cervix and bilateral fallopian tubes. Uterus and cervix together measure 9.5 x 5.5 x 4 cm. Uterus and cervix together weigh 92 g. Serosal surface is finely wrinkled to bosselated pink-berger. Cervical mucosa is glistening smooth pink-koch. Cervical os measures 0.9 cm in length. Upon transection squamocolumnar junction is distinct. Endocervical canal measures 1.5 cm length while the endometrial cavity measures 5.5 cm in length and 3 cm in width. The endometrium is berger with superficial hemorrhage and averages 0.1 cm in thickness. Sectioning through the myometrium demonstrates it to be coarsely trabeculated. No bulging masses are identified. The left fallopian tube measures 4.5 cm length and average 0.8 cm in diameter. Fimbria are identified at the distal end and are free. Upon transection a pinpoint lumen is identified. The right fallopian tube measures 6.5 cm length and averages 0.8 cm in diameter. Fimbria are identified at the distal end and are free. Upon transection a pinpoint lumen is identified. Bulb Assembler sections of the specimen are submitted in 6 cassettes as follows: Block 1 anterior cervix and lower uterine segment. Block 2 posterior cervix and lower uterine segment. Block 3 full-thickness section of anterior endometrium and myometrium. Block 4 full-thickness section of posterior endometrium and myometrium. Block 5 sections of left fallopian tube. Block 6 sections of right fallopian tube. TRISTA Gross examination performed at: [facility] - [address] [place] [address] Microscopic examination is performed. Normal [facility] Comment on above: Performed By: #### [id number] #### [address] [address] Lul Brennan M.D. [id number] Endometrial biopsyon 025 Tory Vela MD 08/21/2024 3:50 PM Endometrial biopsy Date/Time: 08/21/2024 3:34 PM Performed by: Tory Vela MD Authorized by: Tory Vela MD Consent: Consent obtained: verbal and written Consent given by: patient Risks discussed: bleeding, conversion to surgery, , damage to other organs, loss of function, infection, need for repeat procedure and pain Patient agrees, verbalizes understanding, and wants to proceed: yes Indications: Indications: abnormal uterine bleeding Pre-procedure: Urine test: negative Premeds: acetaminophen Procedure: A bimanual exam was performed: no Prepped with: Betadine Tenaculum used: yes A local block was performed: no Cervix dilated: no Number of passes: 1 Findings: Cervix: normal Specimen collected: specimen collected and sent to pathology Patient tolerance: tolerated well, no immediate complications [facility] HCG ( test) Ql (U)O rdered By: Tiara Nassar on 08-21-2024 Internal Control Pass [facility] Interpretation and review of laboratory results Normal [facility] POC , urineOrdered By: Tiara Nassar on 08-21-2024 HCG ( test) Ql (U) Negative Negative [facility] TISSUE EXAMon 08-21-2024 TISSUE EXAM Surgical Pathology R eport Case: [id number] Authorizing Provider: Tory Vela MD Collected: 08/21/2024 03:34 PM Ordering Location: [facility] Received: 08/22/2024 07:56 AM Obstetrics and Gynecology Pathologist: Kevin Bush IV, MD Specimen: Endometrium A. Endometrium, biopsy: Benign weakly proliferative endometrium. (N93.9) A. Received in formalin, designated Endometrium Tissue, is soft tissue which consists of multiple wispy hemorrhagic, mucoid koch tissue fragments aggregating to 0.4 x 0.4 x 0.2 cm. Totally submitted in 1 cassette(s). JK Gross examination performed at: [facility] - [address] [place], [place] [id number] Microscopic examination is performed. Normal [facility] [place] [facility] Comment on above: Performed By: #### [id number] #### LAB [address] [place] [address] Lul Brennan M.D. [id number] ED Prov Noteon 08-04-2024 ED Prov Note ED PROVIDER NOTE [facility] NAME: Damaris Dykes AGE: 39 y.o. : 1985 VISIT DATE: 08/04/2024 CSN: [id number] PCP: Michelle Rain CNP Chief Complaint Patient presents with Leg Swelling Patient presents to ED for evaluation of right leg swelling. She also endorses that earlier today at work she thought that her hands turned blue. She states she called her primary care provider office today and they directed her here for further evaluation. She denies any recent procedures surgeries and or long travel. No specific aggravating or alleviating factors. 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, normal COLONOSCOPY N/A 05/14/2023 with biopsy; Surgeon: Brandon Norton MD COLPOSCOPY DILATION AND CURETTAGE OF UTERUS ESOPHAGOGASTRODUODENOSCOPY 02/24/[address] [facility], mild chronic inactive gastritis with rare h-pylori LUNG SURGERY Left early 20's, filled with fluid MULTIPLE TOOTH EXTRACTIONS wears dentures PIERCINGS AND TATTOOS PLANTAR FASCIA SURGERY Bilateral THORACENTESIS THYROIDECTOMY Bilateral 08/04/2023 TOTAL THYROIDECTOMY-papillary carcinoma classic subtype pT1a pN......Dr. Gilles Kim US THYROID BIOPSY WITH FNA 06/08/2023 US THYROID BIOPSY WITH FNA 06/08/2023 Danny Arevalo DO ULTRASOUND Family History Problem Relation Age of Onset Arthritis Mother Diabetes Mother edentulous Achalasia Mother Asthma Mother with atopy Hypertension Mother Other (psychiatric disorder) Mother Stroke Mother Thyroid disease Mother Fibromyalgia Mother Sleep apnea Mother Restless legs syndrome Mother Peripheral vascular disease Mother Hypertension Father Peripheral vascular disease Father Achalasia Maternal Grandmother Alzheimer's disease Maternal Grandmother COPD Maternal Grandmother Coronary artery disease Maternal Grandmother Heart attack Maternal Grandmother Diabetes Maternal Grandmother Rheum arthritis Maternal Grandmother Breast cancer Paternal Grandmother Asthma Brother atopy Colon cancer Maternal Great-Grandfather unknown age of onset Rectal cancer Neg Hx Social History Socioeconomic History Marital status: Single Tobacco Use Smoking status: Every Day Current packs/day: 1.00 Average packs/day: 1 pack/day for 20.0 years (20.0 ttl pk-yrs) Types: Cigarettes Smokeless tobacco: Never Vaping Use Vaping status: Never Used Substance and Sexual Activity Alcohol use: Not Currently Drug use: Not Currently Frequency: 1.0 times per week Types: Marijuana Comment: medical Sexual activity: Yes Partners: Male control/protection: None Social Drivers of Health Financial Resource Strain: High Risk (05/03/2023) Overall Financial Resource Strain (CARDIA) Difficulty of Paying Living Expenses: Very hard Food Insecurity: Food Insecurity Present (08/05/2023) Hunger Vital Sign Worried About Running Out of Food in the Last Year: Often true Ran Out of Food in the Last Year: Sometimes true Transportation Needs: No Transportation Needs (08/05/2023) PRAPARE - Transportation Lack of Transportation (Medical): No Lack of Transportation (Non-Medical): No Physical Activity: Inactive (05/03/2023) Exercise Vital Sign Days of Exercise per Week: 0 days Minutes of Exercise per Session: 0 min Stress: Stress Concern Present (05/03/2023) [employer] - Occupational Stress Questionnaire Feeling of Stress : Very much Social Connections: Socially Isolated (05/03/2023) Social Connection and Isolation Panel [NHANES] Frequency of Communication with Friends and Family: Never Frequency of Social Gatherings with Friends and Family: Never Attends Cheondoism Services: Never Active Member of Clubs or Organizations: No Attends Club or Organization Meetings: Never Marital Status: Living with partner Housing Stability: High Risk (08/05/2023) Housing Stability Vital Sign Unable to Pay for (more content not included)... Normal [facility] DUPLEX VENOUS LEG RIGHTon 08-04-2024 DUPLEX VENOUS LEG RIGHT Patient Info Name: DAMARIS DYKES Age: 39 years : 1985 Gender: Female Exam Date: 08/04/2024 3:29 PM Patient Status: Emergency Match Up Worker: Luiza Villar RDMS (AB), RVS Referring Physician: ROSE River; Indications M79.604 - Pain in right leg Procedure Description 90508 Duplex examination using B-mode, color and spectral Doppler of extremity veins including responses to compression and other maneuvers; unilateral or limited study. Conclusions * No evidence of deep or superficial vein thrombosis in the right lower extremity. Risk Factors Patient has a history of hypertension, hyperlipidemia, tobacco use-current and malignancy. . Report Signatures Finalized by Eliel Perez MD on 08/04/2024 03:55 PM External Iliac: - External Iliac: Normal External Iliac: Normal External Iliac: - External Iliac: - External Iliac: - Common Femoral: Complete Common Femoral: Normal Common Femoral: Normal Common Femoral: Complete Common Femoral: Normal Common Femoral: Normal Femoral: Complete Femoral: - Femoral: Normal Femoral: - Femoral: Normal Femoral: - Peroneal: Complete Peroneal: - Peroneal: - Peroneal: - Peroneal: - Peroneal: - Profunda Femoral: Complete Profunda Femoral: - Profunda Femoral: - Profunda Femoral: - Profunda Femoral: - Popliteal: Complete Popliteal: - Popliteal: Normal Popliteal: - Popliteal: Normal Popliteal: - Posterior Tibial: Complete Posterior Tibial: - Posterior Tibial: - Posterior Tibial: - Posterior Tibial: - Posterior Tibial: - Gastrocnemius: - Gastrocnemius: - Gastrocnemius: - Gastrocnemius: - Gastrocnemius: - Gastrocnemius: - Soleal: - Soleal: - Soleal: - Soleal: - Soleal: - Soleal: - Great Saphenous: Complete Great Saphenous: - Great Saphenous: Normal Great Saphenous: - Great Saphenous: Normal Great Saphenous: - Small Saphenous: - Small Saphenous: - Small Saphenous: - Small Saphenous: - Small Saphenous: - Small Saphenous: - - Normal [facility] US TRANSVAGINALon 08-03-2024 US TRANSVAGINAL Transvaginal ultraso und of the uterus performed. Transvaginal ultrasound shows uterus to measure 8.3 x 3.9 x 5.6 cm. Endometrial stripe is normal in appearance and measures 0.47 cm. Right ovary measures 3.3 x 3.2 x 2.7 cm. Within the right ovary is a simple appearing follicular cyst measuring 2.8 x 2.0 x 1.6 cm. Left ovary is normal measuring 2.9 x 2.3 x 2.0 cm. Normal transvaginal ultrasound of the uterus and ovaries with a simple appearing follicular cyst. Follicular cyst is a normal finding in a woman still of childbearing age. Overall normal transvaginal ultrasound. Dictated by: CODY PEACOCK on WedAug 08, 2024 7:51:12 AM EST Transcribed by: CODY PEACOCK on WedAug 08, 2024 7:51:12 AM EST Finalized by: CODY PEACOCK on WedAug 08, 2024 7:51:12 AM EST Normal [facility] ED Prov Noteon 08-02-2024 ED Prov Note ED PROVIDER NOTE [facility] NAME: Damaris Dykes AGE: 39 y.o. : 1985 VISIT DATE: 08/02/2024 CSN: [id number] PCP: Michelle Rain CNP Chief Complaint Patient presents with Chest Pain 39-year-old female patient presents ER for evaluation of palpitations. Patient states she has had palpitations for approximately 2 days, states at times feels chest tightness. No associate shortness of breath nausea emesis, no dyspnea with exertion. 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, normal COLONOSCOPY N/A 05/14/2023 with biopsy; Surgeon: Brandon Norton MD COLPOSCOPY DILATION AND CURETTAGE OF UTERUS ESOPHAGOGASTRODUODENOSCOPY 02/24/[address] [facility], mild chronic inactive gastritis with rare h-pylori LUNG SURGERY Left early s, filled with fluid MULTIPLE TOOTH EXTRACTIONS wears dentures PIERCINGS AND TATTOOS PLANTAR FASCIA SURGERY Bilateral THORACENTESIS THYROIDECTOMY Bilateral 08/04/2023 TOTAL THYROIDECTOMY-papillary carcinoma classic subtype pT1a pN......Dr. Gilles Kim THYROID BIOPSY WITH FNA 06/08/2023 THYROID BIOPSY WITH FNA 06/08/2023 Danny Arevalo DO ULTRASOUND Family History Problem Relation Age of Onset Arthritis Mother Diabetes Mother edentulous Achalasia Mother Asthma Mother with atopy Hypertension Mother Other (psychiatric disorder) Mother Stroke Mother Thyroid disease Mother Fibromyalgia Mother Sleep apnea Mother Restless legs syndrome Mother Peripheral vascular disease Mother Hypertension Father Peripheral vascular disease Father Achalasia Maternal Grandmother Alzheimer's disease Maternal Grandmother COPD Maternal Grandmother Coronary artery disease Maternal Grandmother Heart attack Maternal Grandmother Diabetes Maternal Grandmother Rheum arthritis Maternal Grandmother Breast cancer Paternal Grandmother Asthma Brother atopy Colon cancer Maternal Great-Grandfather unknown age of onset Rectal cancer Neg Hx Social History Socioeconomic History Marital status: Single Tobacco Use Smoking status: Every Day Current packs/day: 1.00 Average packs/day: 1 pack/day for 20.0 years (20.0 ttl pk-yrs) Types: Cigarettes Smokeless tobacco: Never Vaping Use Vaping status: Never Used Substance and Sexual Activity Alcohol use: Not Currently Drug use: Not Currently Frequency: 1.0 times per week Types: Marijuana Comment: medical Sexual activity: Yes Partners: Male control/protection: None Social Drivers of Health Financial Resource Strain: High Risk (05/03/2023) Overall Financial Resource Strain (CARDIA) Difficulty of Paying Living Expenses: Very hard Food Insecurity: Food Insecurity Present (08/05/2023) Hunger Vital Sign Worried About Running Out of Food in the Last Year: Often true Ran Out of Food in the Last Year: Sometimes true Transportation Needs: No Transportation Needs (08/05/2023) PRAPARE - Transportation Lack of Transportation (Medical): No Lack of Transportation (Non-Medical): No Physical Activity: Inactive (05/03/2023) Exercise Vital Sign Days of Exercise per Week: 0 days Minutes of Exercise per Session: 0 min Stress: Stress Concern Present (05/03/2023) [employer] - Occupational Stress Questionnaire Feeling of Stress : Very much Social Connections: Socially Isolated (05/03/2023) Social Connection and Isolation Panel [NHANES] Frequency of Communication with Friends and Family: Never Frequency of Social Gatherings with Friends and Family: Never Attends Cheondoism Services: Never Active Member of Clubs or Organizations: No Attends Club or Organization Meetings: Never Marital Status: Living with partner Housing Stability: High Risk (08/05/2023) Housing Stability Vital Sign Unable to Pay for Housing in the Last Year: Yes Number of Places Lived in the Last Year: 5 Unstable Housing in the Last Year: No Previous Medications (more content not included)... Normal [facility] POC BASIC METABOLIC PANEL - [facility] 08-02-2024 Chloride [Moles/Vol] 103 mmol/L Normal 98-108 [facility] Comment on above: Order Comment: [facility] has implemented the eGFR calculation approach that does not have a coefficient for race that conforms to the NKF-ASN Task Force Recommendations. CO2 [Moles/Vol] 31 mmol/L Normal 21-32 [facility] Comment on above: Order Comment: [facility] has implemented the eGFR calculation approach that does not have a coefficient for race that conforms to the NKF-ASN Task Force Recommendations. Creatinine [Mass/Vol] 0.91 mg/dL Normal 0.40-1.10 [facility] Comment on above: Order Comment: [facility] has implemented the eGFR calculation approach that does not have a coefficient for race that conforms to the NKF-ASN Task Force Recommendations. Glucose [Mass/Vol] 66 mg/dL Normal 65-99 [facility] Comment on above: Order Comment: [facility] has implemented the eGFR calculation approach that does not have a coefficient for race that conforms to the NKF-ASN Task Force Recommendations. POC GFR 82 mL/min/1.73 m2 Normal >=60 [facility] Comment on above: Order Comment: [facility] has implemented the eGFR calculation approach that does not have a coefficient for race that conforms to the NKF-ASN Task Force Recommendations. Result Comment: Rigo mated GFR was calculated using the 2020 CKD-EPI creatinine equation. POC IONIZED CALCIUM 4.6 mg/dL Normal 4.5-5.3 [facility] Comment on above: Order Comment: [facility] has implemented the eGFR calculation approach that does not have a coefficient for race that conforms to the NKF-ASN Task Force Recommendations. Potassium [Moles/Vol] 3.6 mmol/L Normal 3.5-5.1 [facility] Comment on above: Order Comment: [facility] has implemented the eGFR calculation approach that does not have a coefficient for race that conforms to the NKF-ASN Task Force Recommendations. Sodium [Moles/Vol] 141 mmol/L Normal 135-145 [facility] Comment on above: Order Comment: [facility] has implemented the eGFR calculation approach that does not have a coefficient for race that conforms to the NKF-ASN Task Force Recommendations. Urea nitrogen [Mass/Vol] 9 mg/dL Normal 8-25 [facility] Comment on above: Order Comment: [facility] has implemented the eGFR calculation approach that does not have a coefficient for race that conforms to the NKF-ASN Task Force Recommendations. POC CBC AND DIFFERENTIALon 0 - BASOPHILS ABSOLUTE COUNT 0.03 K/mcL Normal 0.00-0.30 [facility] Basophils/100 WBC (Bld) 0.3 % Normal [facility] Eosinophils (Bld) [#/Vol] 0.22 10*3/uL Normal 0.00-0.50 [facility] Eosinophils/100 WBC (Bld) 2.3 % Normal [facility] Erythrocyte distribution width (RBC) [Ratio] 13.1 % Normal 11.6-14.8 [facility] Hematocrit (Bld) [Volume fraction] 39.0 % Normal 36.0-46.0 [facility] Hemoglobin (Bld) [Mass/Vol] 13.3 g/dL Normal 12.0-16.0 [facility] IG ABSOLUTE 0.01 K/mcL Normal 0.00-0.30 [facility] IG PERCENT 0.10 % Normal [facility] Comment on above: Result Comment: The IG parameter is the percentage of metamyelocytes, myelocytes and promyelocytes. An immature granulocyte count (IG) of 1% or more suggests the possibility of infection, an IG count of 3% is very likely related to an infection. Lymphocytes (Bld) [#/Vol] 2.69 10*3/uL Normal 0.90-4.00 [facility] Lymphocytes/100 WBC (Bld) 27.6 % Normal [facility] MCH (RBC) [Entitic mass] 31.3 pg Normal 26.0-34.0 [facility] MCV (RBC) [Entitic vol] 91.8 fL Normal 80.0-100.0 [facility] MEAN CORPUSCULAR HEMOGLOBIN CONC 34.1 g/dL Normal 31.0-37.0 [facility] Monocytes (Bld) [#/Vol] 0.80 10*3/uL Normal 0.30-0.90 [facility] Monocytes/100 WBC (Bld) 8.2 % Normal [facility] NEUTROPHILS ABSOLUTE COUNT 6.00 K/mcL Normal 1.70-7.00 [facility] Neutrophils/100 WBC (Bld) 61.5 % Normal [facility] Platelet mean volume (Bld) [Entitic vol] 9.6 fL Normal 9.4-12.4 [facility] Platelets (Bld) [#/Vol] 332 10*3/uL Normal 150-400 [facility] RBC (Bld) [#/Vol] 4.25 10*6/uL Normal 4.00-5.20 [facility] WBC (Bld) [#/Vol] 9.75 10*3/uL Normal 4.50-11.00 [facility] POC TROPONIN I Genet 2024 POC TROPONIN I < Normal <0.05 [facility] XR CHEST PA/APon 08-02-2024 XR CHEST PA/AP EXAMINATION: XR CHEST PA/AP 08/02/2024 5:36 pm HISTORY: ORDERING SYSTEM PROVIDED HISTORY: CP, TECHNOLOGIST PROVIDED HISTORY: Illness/Other Reason for exam: chest pain and tightness with fatigue for 2 days Cancer History: Thyroid cancer Surgery, RadiationHistory: Thyroidectomy Encounter Type: Initial Additional signs and symptoms: na ORDERING SYSTEM PROVIDED DIAGNOSIS CODES: COMPARISON: 05/29/2024 FINDINGS: A single, portable, upright, frontal view of the chest was obtained. The cardiomediastinal silhouette is unremarkable. There is no pneumothorax, pulmonary vascular congestion, pleural effusion, or focal airspace consolidation. IMPRESSION: No acute cardiopulmonary disease. Workstation ID: [id number] Dictated by: SUZIE KAUR on WedAug 02, 2024 7:36:08 PM EST Transcribed by: SUZIE KAUR on WedAug 02, 2024 7:36:08 PM EST Finalized by: SUZIE KAUR on WedAug 02, 2024 7:36:08 PM EST Normal [facility] Comment on above: Order Comment: Injur y/Trauma or Illness?:Illness/OtherHow long have you had these symptoms (acute/chronic)?:AcuteReason for exam?:chest pain and tightness with fatigue for 2 daysHistory of cancer?:Thyroid cancerSurgeries, chemotherapy, or radiation?:ThyroidectomyType of Exam?:InitialAdditional signs and symptoms?:na ED Prov Noteon 05-29-2024 ED Prov Note HPI: 05/29/2024, Time: @NOWINDY@ Damaris Le Donis is a 39 y.o. female presenting to the ED for palpitations noted as she was about to go to bed, beginning last few hours ago. The complaint has been intermittent, moderate in severity, and worsened by nothing. No alleviating factors. History of hypokalemia of unknown cause but no longer takes potassium supplements. No fever chills or fatigue and no chest pain or difficulty breathing or diaphoresis ROS: Pertinent positives and negatives are stated within HPI, all other systems reviewed and are negative. PAST HISTORY Past Medical History: @[facility]@ Past Surgical History: has a past surgical history that includes Plantar fascia surgery (Bilateral); Cholecystectomy; Lung surgery (Left); Esophagogastroduodenoscopy (02/24/2021); Colonoscopy (11/10/2021); Carpal Tunnel Release Open (Right, 04/29/2023); Colonoscopy (N/A, 05/14/2023); US Thyroid Biopsy With FNA (06/08/2023); Multiple tooth extractions; PIERCINGS AND TATTOOS; Dilation and curettage of uterus; Colposcopy; Thoracentesis; and Thyroidectomy (Bilateral, 08/04/2023). Social History: reports that she has been smoking cigarettes. She has a 20 pack-year smoking history. She has never used smokeless tobacco. She reports that she does not currently use alcohol. She reports that she does not currently use drugs after having used the following drugs: Marijuana. Frequency: 1.00 time per week. Family History: family history includes Achalasia in her maternal grandmother and mother; Alzheimer's disease in her maternal grandmother; Arthritis in her mother; Asthma in her brother and mother; Breast cancer in her paternal grandmother; COPD in her maternal grandmother; Colon cancer in her maternal great-grandfather; Coronary artery disease in her maternal grandmother; Diabetes in her maternal grandmother and mother; Fibromyalgia in her mother; Heart attack in her maternal grandmother; Hypertension in her father and mother; Peripheral vascular disease in her father and mother; Restless legs syndrome in her mother; Rheum arthritis in her maternal grandmother; Sleep apnea in her mother; Stroke in her mother; Thyroid disease in her mother; psychiatric disorder in her mother. The patient's home medications have been reviewed. Allergies: Mirtazapine and Adhesive tape-silicones RESULTS All laboratory and radiology results have been personally reviewed by myself LABS: Results for orders placed or performed during the hospital encounter of 05/29/24 POC CBC and Differential Collection Time: 05/29/24 9:25 PM Result Value Ref Range WBC 11.29 (H) 4.50 - 11.00 K/mcL RBC 4.68 4.00 - 5.20 M/mcL Hemoglobin 14.1 12.0 - 16.0 g/dL Hematocrit 41.2 36.0 - 46.0 % MCV 88.0 80.0 - 100.0 fL MCH 30.1 26.0 - 34.0 pg MCHC 34.2 31.0 - 37.0 g/dL RDW - CV 12.7 11.6 - 14.8 % Platelets 349 150 - 400 K/mcL MPV 9.5 9.4 - 12.4 fL Neutrophils 55.8 % Lymphocytes 31.2 % Monocytes 10.1 % Eosinophils 2.5 % Basophils 0.3 % IG Percent 0.10 % Neutrophils Abs 6.31 1.70 - 7.00 K/mcL Lymphocytes Abs 3.52 0.90 - 4.00 K/mcL Monocytes Abs 1.14 (H) 0.30 - 0.90 K/mcL Eosinophils Abs 0.28 0.00 - 0.50 K/mcL Basophils Abs 0.03 0.00 - 0.30 K/mcL IG Absolute 0.01 0.00 - 0.30 K/mcL POC Basic Metabolic Panel Collection Time: 05/29/24 9:31 PM Result Value Ref Range Glucose 80 65 - 99 mg/dL BUN 9 8 - 25 mg/dL Creatinine 0.78 0.40 - 1.10 mg/dL GFR 99 >=60 mL/min/1.73 m2 Sodium 141 135 - 145 mmol/L Potassium 3.1 (L) 3.5 - 5.1 mmol/L Chloride 101 98 - 108 mmol/L TCO2 29 21 - 32 mmol/L Ionized Calcium 4.6 4.5 - 5.3 mg/dL POC Troponin I Collection Time: 05/29/24 9:52 PM Result Value Ref Range Troponin I <0.05 <0.05 ng/mL RADIOLOGY: Interpreted by Radiologist. XR Chest 1 View (Results Pending) NURSING NOTES AND VITALS REVIEWED The nursing notes within the ED encounter and vital signs as below have been reviewed. BP 111/71 Pulse 87 Temp 99.2 degrees F (37.3 degrees C) (Temporal) Resp (!) 23 Ht 5' 10 Wt 127 kg (280 lb) SpO2 98% BMI 40.18 kg/m Oxygen Saturation Interpretation: Normal PHY SICAL EXAM Constitutional/General: Alert and oriented x3, well appearing, non toxic in NAD Head: NC/AT Eyes: PERRL, EOMI Mouth: Oropharynx clear, handling secretions, no trismus Neck: Supple, full ROM, no meningeal signs Pulmonary: Lungs clear to auscultation bilaterally, no wheezes, rales, or rhonchi. Not in respiratory distress Cardiovascular: Regular rate and rhythm, no murmurs, gallops, or rubs. 2+ distal pulses Abdomen: Soft, non tender, non distended, (more content not included)... Normal [facility] POC BASIC METABOLIC PANEL - [facility] 05-29-2024 Chloride [Moles/Vol] 101 mmol/L Normal 98-108 [facility] Comment on above: Order Comment: [facility] has implemented the eGFR calculation approach that does not have a coefficient for race that conforms to the NKF-ASN Task Force Recommendations. CO2 [Moles/Vol] 29 mmol/L Normal 21-32 [facility] Comment on above: Order Comment: [facility] has implemented the eGFR calculation approach that does not have a coefficient for race that conforms to the NKF-ASN Task Force Recommendations. Creatinine [Mass/Vol] 0.78 mg/dL Normal 0.40-1.10 [facility] Comment on above: Order Comment: [facility] has implemented the eGFR calculation approach that does not have a coefficient for race that conforms to the NKF-ASN Task Force Recommendations. Glucose [Mass/Vol] 80 mg/dL Normal 65-99 [facility] Comment on above: Order Comment: [facility] has implemented the eGFR calculation approach that does not have a coefficient for race that conforms to the NKF-ASN Task Force Recommendations. POC GFR 99 mL/min/1.73 m2 Normal >=60 [facility] Comment on above: Order Comment: [facility] has implemented the eGFR calculation approach that does not have a coefficient for race that conforms to the NKF-ASN Task Force Recommendations. Result Comment: Rigo mated GFR was calculated using the 2020 CKD-EPI creatinine equation. POC IONIZED CALCIUM 4.6 mg/dL Normal 4.5-5.3 [facility] Comment on above: Order Comment: [facility] has implemented the eGFR calculation approach that does not have a coefficient for race that conforms to the NKF-ASN Task Force Recommendations. Potassium [Moles/Vol] 3.1 mmol/L Low 3.5-5.1 [facility] Comment on above: Order Comment: [facility] has implemented the eGFR calculation approach that does not have a coefficient for race that conforms to the NKF-ASN Task Force Recommendations. Sodium [Moles/Vol] 141 mmol/L Normal 135-145 [facility] Comment on above: Order Comment: [facility] has implemented the eGFR calculation approach that does not have a coefficient for race that conforms to the NKF-ASN Task Force Recommendations. Urea nitrogen [Mass/Vol] 9 mg/dL Normal 8-25 [facility] Comment on above: Order Comment: [facility] has implemented the eGFR calculation approach that does not have a coefficient for race that conforms to the NKF-ASN Task Force Recommendations. POC CBC AND DIFFERENTIALon 1 BASOPHILS ABSOLUTE COUNT 0.03 K/mcL Normal 0.00-0.30 [facility] Basophils/100 WBC (Bld) 0.3 % Normal [facility] Eosinophils (Bld) [#/Vol] 0.28 10*3/uL Normal 0.00-0.50 [facility] Eosinophils/100 WBC (Bld) 2.5 % Normal [facility] Erythrocyte distribution width (RBC) [Ratio] 12.7 % Normal 11.6-14.8 [facility] Hematocrit (Bld) [Volume fraction] 41.2 % Normal 36.0-46.0 [facility] Hemoglobin (Bld) [Mass/Vol] 14.1 g/dL Normal 12.0-16.0 [facility] IG ABSOLUTE 0.01 K/mcL Normal 0.00-0.30 [facility] IG PERCENT 0.10 % Normal [facility] Comment on above: Result Comment: The IG parameter is the percentage of metamyelocytes, myelocytes and promyelocytes. An immature granulocyte count (IG) of 1% or more suggests the possibility of infection, an IG count of 3% is very likely related to an infection. Lymphocytes (Bld) [#/Vol] 3.52 10*3/uL Normal 0.90-4.00 [facility] Lymphocytes/100 WBC (Bld) 31.2 % Normal [facility] MCH (RBC) [Entitic mass] 30.1 pg Normal 26.0-34.0 [facility] MCV (RBC) [Entitic vol] 88.0 fL Normal 80.0-100.0 [facility] MEAN CORPUSCULAR HEMOGLOBIN CONC 34.2 g/dL Normal 31.0-37.0 [facility] Monocytes (Bld) [#/Vol] 1.14 10*3/uL High 0.30-0.90 [facility] Monocytes/100 WBC (Bld) 10.1 % Normal [facility] NEUTROPHILS ABSOLUTE COUNT 6.31 K/mcL Normal 1.70-7.00 [facility] Neutrophils/100 WBC (Bld) 55.8 % Normal [facility] Platelet mean volume (Bld) [Entitic vol] 9.5 fL Normal 9.4-12.4 [facility] Platelets (Bld) [#/Vol] 349 10*3/uL Normal 150-400 [facility] RBC (Bld) [#/Vol] 4.68 10*6/uL Normal 4.00-5.20 [facility] WBC (Bld) [#/Vol] 11.29 10*3/uL High 4.50-11.00 [facility] POC TROPONIN I Genet 2023 POC TROPONIN I < Normal <0.05 [facility] XR CHEST PA/APon 05-29-2024 XR CHEST PA/AP EXAMINATION: XR CHEST PA/AP 05/29/2024 9:42 pm HISTORY: ORDERING SYSTEM PROVIDED HISTORY: PALPITATIONS CHEST TIGHTNESS, TECHNOLOGIST PROVIDED HISTORY: Illness/Other Reason for exam: palpitations Cancer History: Thyroid cancer Surgery, RadiationHistory: Thyroidectomy Encounter Type: Initial Additional signs and symptoms: chest tightness ORDERING SYSTEM PROVIDED DIAGNOSIS CODES: COMPARISON: PA chest from 03/31/2023. FINDINGS: Trachea, mediastinum and heart size are unremarkable. No infiltrate or nodule or effusion or pneumothorax is noted. Diaphragm and bony elements are intact. IMPRESSION: Nonacute portable chest. Workstation ID: [id number] Dictated by: DEO KING on WedMay 29, 2024 11:00:17 PM EDT Transcribed by: DEO KING on WedMay 29, 2024 11:00:17 PM EDT Finalized by: DEO KING on WedMay 29, 2024 11:00:17 PM EDT Normal [facility] Comment on above: Order Comment: [facility] has implemented the eGFR calculation approach that does not have a coefficient for race that conforms to the NKF-ASN Task Force Recommendations. [facility] 04-17-2024 [facility] Telephone (AGSPINE2) DAMARIS DYKES ([id number]) 1985 F Date Time Provider Department 04/17/24 LIBERTAD CONTI AGSPINE2 During your visit today, we recorded the following information about you: Leonela Hamilton 04/17/2024 4:14 PM Signed Received an appointment confirmation sheet from [facility] to fill out once patient is scheduled. Scanned blank copy into patient's chart. Please print once patient is scheduled and fax back. Leonela Hamilton Allergies As of Date: 04/17/2024 Noted Allergy Reaction ADHESIVE TAPE (ROSINS) 10/17/2008 Comments: blisters REMERON (MIRTAZAPINE) 01/12/2011 1 - Mental Status Change Date Reviewed: 03/02/2024 Reviewed by: Carlos Browne MD - Fully Assessed Reason for Visit: Appointment [186] Cmt: New patient Prescriptions as of 04/17/2024 - FIBER, CALCIUM POLYCARBOPHIL, ORAL Take by mouth. - levothyroxine (SYNTHROID) 200 mcg tablet Take 1 tablet by mouth daily before breakfast. - etonogestrel (NEXPLANON) 68 mg impl subdermal implant 68 mg by SUBDERMAL route. - lamotrigine (LAMICTAL ORAL) Take 50 mg by mouth once daily. - hydroxyzine HCl (ATARAX ORAL) Take 50 mg by mouth every 6 hours. - trazodone HCl (TRAZODONE ORAL) Take 50 mg by mouth daily at bedtime. - ibuprofen (MOTRIN) 800 mg tablet Take 1 tablet by mouth every 8 hours as needed for pain. - cyanocobalamin (VITAMIN B-12) 1,000 mcg tab Take 1,000 mcg by mouth once daily. - cholecalciferol, vitamin D3, 10 mcg (400 unit) cap Take 400 Units by mouth once daily. - pantoprazole DR (PROTONIX) 40 mg tablet In the morning, TAKE 1 TABLET DAILY ON EMPTY STOMACH Problem List As Of Date 04/17/2024 Noted Resolved PAIN JOINT, KNEE [M25.569] 12/09/2006 Obesity, Class III, BMI 40-49.9 (morbid obesity*12/09/2006 02/23/2022 PLEURAL EFFUSION NOS [J90] 06/27/2008 Supervision of Other High-Risk [O09.8*07/02/2009 03/18/2010 Decreased Movements, Affecting Management*09/05/2009 03/18/2010 Depression [F32.A] 12/17/2010 Plantar fascial fibromatosis [M72.2] 04/05/2012 Vitamin d deficiency [E55.9] 11/07/2012 AGUSTO (obstructive sleep apnea) [G47.33] 07/05/2013 Amenorrhea [N91.2] 10/30/2013 Impaired fasting blood sugar [R73.01] 03/03/2016 Hypertriglyceridemia [E78.1] 03/03/2016 Tetrahydrocannabinol (THC) use disorder, mild, *06/03/2016 Cervicalgia [M54.2] 08/12/2016 Chronic low back pain without sciatica [M54.50,*08/12/2016 Diffuse myofascial pain syndrome [M79.18] 08/12/2016 Myalgia [M79.10] 07/13/2017 Thyroid nodule [E04.1] 06/09/2018 Essential hypertension [I10] 09/20/2020 Gastroesophageal reflux disease [K21.9] 02/17/2021 Gastroesophageal reflux disease with esophagiti*02/24/2021 02/24/2021 Borderline personality disorder (HCC) [F60.3] 10/31/2021 Chronic post-traumatic stress disorder (PTSD) [*10/31/2021 MG (generalized anxiety disorder) [F41.1] 10/31/2021 Bipolar 2 disorder (HCC) [F31.81] 10/31/2021 Acute nonintractable headache [R51.9] 12/09/2021 Word finding difficulty [R47.89] 12/09/2021 Memory deficit [R41.3] 12/09/2021 Bilateral leg paresthesia [R20.2] 12/09/2021 Chronic bilateral thoracic back pain [M54.6, G8*12/09/2021 Thunderclap headache [G44.53] 12/09/2021 Obesity, Class II, BMI 35-39.9 [E66.9] 03/02/2024 Encounter Status:Closed by LEONELA HAMILTON on 04/17/24 [facility] 03-14-2024 [facility]NP[facility] Telephone (AGSTOW) DAMARIS DYKES ([id number]) 1985 F Date Time Provider Department 03/14/24 VARINDER PATEL During your visit today, we recorded the following information about you: Josee Boyd MA 03/14/2024 4:20 PM Signed Authorization #: Approved Lab Results: not required Test date and time: 03/29/24 1:30 pm Facility for test: [facility] Name of test: MRI cervical spine w/o IV contrast Patient cancelled test as she is moving out of the area Josee Boyd MA March 14, 2024 4:19 PM Allergies As of Date: 03/14/2024 Noted Allergy Reaction ADHESIVE TAPE (ROSINS) 10/17/2008 Comments: blisters REMERON (MIRTAZAPINE) 01/12/2011 1 - Mental Status Change Date Reviewed: 03/02/2024 Reviewed by: Carlos Browne MD - Fully Assessed Reason for Visit: Orders [681] Cmt: MRI cervical spine w/o IV contrast Prescriptions as of 03/14/2024 - FIBER, CALCIUM POLYCARBOPHIL, ORAL Take by mouth. - levothyroxine (SYNTHROID) 200 mcg tablet Take 1 tablet by mouth daily before breakfast. - potassium chloride (KLOR-CON) 20 mEq packet Take 20 mEq by mouth two times a day. - etonogestrel (NEXPLANON) 68 mg impl subdermal implant 68 mg by SUBDERMAL route. - lamotrigine (LAMICTAL ORAL) Take 50 mg by mouth once daily. - hydroxyzine HCl (ATARAX ORAL) Take 50 mg by mouth every 6 hours. - trazodone HCl (TRAZODONE ORAL) Take 50 mg by mouth daily at bedtime. - ibuprofen (MOTRIN) 800 mg tablet Take 1 tablet by mouth every 8 hours as needed for pain. - cyanocobalamin (VITAMIN B-12) 1,000 mcg tab Take 1,000 mcg by mouth once daily. - cholecalciferol, vitamin D3, 10 mcg (400 unit) cap Take 400 Units by mouth once daily. - pantoprazole DR (PROTONIX) 40 mg tablet In the morning, TAKE 1 TABLET DAILY ON EMPTY STOMACH Problem List As Of Date 03/14/2024 Noted Resolved PAIN JOINT, KNEE [M25.569] 12/09/2006 Obesity, Class III, BMI 40-49.9 (morbid obesity*12/09/2006 02/23/2022 PLEURAL EFFUSION NOS [J90] 06/27/2008 Supervision of Other High-Risk [O09.8*07/02/2009 03/18/2010 Decreased Movements, Affecting Management*09/05/2009 03/18/2010 Depression [F32.A] 12/17/2010 Plantar fascial fibromatosis [M72.2] 04/05/2012 Vitamin d deficiency [E55.9] 11/07/2012 AGUSTO (obstructive sleep apnea) [G47.33] 07/05/2013 Amenorrhea [N91.2] 10/30/2013 Impaired fasting blood sugar [R73.01] 03/03/2016 Hypertriglyceridemia [E78.1] 03/03/2016 Tetrahydrocannabinol (THC) use disorder, mild, *06/03/2016 Cervicalgia [M54.2] 08/12/2016 Chronic low back pain without sciatica [M54.50,*08/12/2016 Diffuse myofascial pain syndrome [M79.18] 08/12/2016 Myalgia [M79.10] 07/13/2017 Thyroid nodule [E04.1] 06/09/2018 Essential hypertension [I10] 09/20/2020 Gastroesophageal reflux disease [K21.9] 02/17/2021 Gastroesophageal reflux disease with esophagiti*02/24/2021 02/24/2021 Borderline personality disorder (HCC) [F60.3] 10/31/2021 Chronic post-traumatic stress disorder (PTSD) [*10/31/2021 MG (generalized anxiety disorder) [F41.1] 10/31/2021 Bipolar 2 disorder (HCC) [F31.81] 10/31/2021 Acute nonintractable headache [R51.9] 12/09/2021 Word finding difficulty [R47.89] 12/09/2021 Memory deficit [R41.3] 12/09/2021 Bilateral leg paresthesia [R20.2] 12/09/2021 Chronic bilateral thoracic back pain [M54.6, G8*12/09/2021 Thunderclap headache [G44.53] 12/09/2021 Obesity, Class II, BMI 35-39.9 [E66.9] 03/02/2024 Encounter Status:Closed by JOSEE BOYD on 03/14/24 [facility] CNPN Telephone (AGSTOW) DONISDAMARIS ([id number]) 1985 F Date Time Provider Department 03/14/24 VARINDER PATEL AGSCONNOR During your visit today, we recorded the following information about you: Josee Boyd MA 03/14/2024 4:18 PM Signed Authorization #: not required Lab Results: not required Test date and time: 04/26/24 8:50 am Facility for test: [facility] Name of test: EMG bilateral hands Patient cancelled test as she is moving out of the area Josee Boyd MA March 14, 2024 4:17 PM Allergies As of Date: 03/14/2024 Noted Allergy Reaction ADHESIVE TAPE (ROSINS) 10/17/2008 Comments: blisters REMERON (MIRTAZAPINE) 01/12/2011 1 - Mental Status Change Date Reviewed: 03/02/2024 Reviewed by: Carlos Browne MD - Fully Assessed Reason for Visit: Orders [681] Cmt: EMG bilateral hands Prescriptions as of 03/14/2024 - FIBER, CALCIUM POLYCARBOPHIL, ORAL Take by mouth. - levothyroxine (SYNTHROID) 200 mcg tablet Take 1 tablet by mouth daily before breakfast. - potassium chloride (KLOR-CON) 20 mEq packet Take 20 mEq by mouth two times a day. - etonogestrel (NEXPLANON) 68 mg impl subdermal implant 68 mg by SUBDERMAL route. - lamotrigine (LAMICTAL ORAL) Take 50 mg by mouth once daily. - hydroxyzine HCl (ATARAX ORAL) Take 50 mg by mouth every 6 hours. - trazodone HCl (TRAZODONE ORAL) Take 50 mg by mouth daily at bedtime. - ibuprofen (MOTRIN) 800 mg tablet Take 1 tablet by mouth every 8 hours as needed for pain. - cyanocobalamin (VITAMIN B-12) 1,000 mcg tab Take 1,000 mcg by mouth once daily. - cholecalciferol, vitamin D3, 10 mcg (400 unit) cap Take 400 Units by mouth once daily. - pantoprazole DR (PROTONIX) 40 mg tablet In the morning, TAKE 1 TABLET DAILY ON EMPTY STOMACH Problem List As Of Date 03/14/2024 Noted Resolved PAIN JOINT, KNEE [M25.569] 12/09/2006 Obesity, Class III, BMI 40-49.9 (morbid obesity*12/09/2006 02/23/2022 PLEURAL EFFUSION NOS [J90] 06/27/2008 Supervision of Other High-Risk [O09.8*07/02/2009 03/18/2010 Decreased Movements, Affecting Management*09/05/2009 03/18/2010 Depression [F32.A] 12/17/2010 Plantar fascial fibromatosis [M72.2] 04/05/2012 Vitamin d deficiency [E55.9] 11/07/2012 AGUSTO (obstructive sleep apnea) [G47.33] 07/05/2013 Amenorrhea [N91.2] 10/30/2013 Impaired fasting blood sugar [R73.01] 03/03/2016 Hypertriglyceridemia [E78.1] 03/03/2016 Tetrahydrocannabinol (THC) use disorder, mild, *06/03/2016 Cervicalgia [M54.2] 08/12/2016 Chronic low back pain without sciatica [M54.50,*08/12/2016 Diffuse myofascial pain syndrome [M79.18] 08/12/2016 Myalgia [M79.10] 07/13/2017 Thyroid nodule [E04.1] 06/09/2018 Essential hypertension [I10] 09/20/2020 Gastroesophageal reflux disease [K21.9] 02/17/2021 Gastroesophageal reflux disease with esophagiti*02/24/2021 02/24/2021 Borderline personality disorder (HCC) [F60.3] 10/31/2021 Chronic post-traumatic stress disorder (PTSD) [*10/31/2021 MG (generalized anxiety disorder) [F41.1] 10/31/2021 Bipolar 2 disorder (HCC) [F31.81] 10/31/2021 Acute nonintractable headache [R51.9] 12/09/2021 Word finding difficulty [R47.89] 12/09/2021 Memory deficit [R41.3] 12/09/2021 Bilateral leg paresthesia [R20.2] 12/09/2021 Chronic bilateral thoracic back pain [M54.6, G8*12/09/2021 Thunderclap headache [G44.53] 12/09/2021 Obesity, Class II, BMI 35-39.9 [E66.9] 03/02/2024 Encounter Status:Closed by JOSEE BOYD on 03/14/24 [facility] 03-03-2024 CNPN Telephone (BubbleGabW) DAMARIS DYKES ([id number]) 1985 F Date Time Provider Department 03/03/24 VARINDER PATEL BubbleGabArabella During your visit today, we recorded the following information about you: Allergies As of Date: 03/03/2024 Noted Allergy Reaction ADHESIVE TAPE (ROSINS) 10/17/2008 Comments: blisters REMERON (MIRTAZAPINE) 01/12/2011 1 - Mental Status Change Date Reviewed: 03/02/2024 Reviewed by: Carlos Bronwe MD - Fully Assessed Reason for Visit: Orders [681] Cmt: MRI Cervical spine w/ IV contrast Prescriptions as of 03/03/2024 - FIBER, CALCIUM POLYCARBOPHIL, ORAL Take by mouth. - levothyroxine (SYNTHROID) 200 mcg tablet Take 1 tablet by mouth daily before breakfast. - potassium chloride (KLOR-CON) 20 mEq packet Take 20 mEq by mouth two times a day. - predniSONE (DELTASONE) 10 mg tablet Take 2 tablets by mouth once daily for 4 days, THEN 1 tablet once daily for 4 days, THEN 0.5 tablets once daily for 8 days. - etonogestrel (NEXPLANON) 68 mg impl subdermal implant 68 mg by SUBDERMAL route. - lamotrigine (LAMICTAL ORAL) Take 50 mg by mouth once daily. - hydroxyzine HCl (ATARAX ORAL) Take 50 mg by mouth every 6 hours. - trazodone HCl (TRAZODONE ORAL) Take 50 mg by mouth daily at bedtime. - ibuprofen (MOTRIN) 800 mg tablet Take 1 tablet by mouth every 8 hours as needed for pain. - cyanocobalamin (VITAMIN B-12) 1,000 mcg tab Take 1,000 mcg by mouth once daily. - cholecalciferol, vitamin D3, 10 mcg (400 unit) cap Take 400 Units by mouth once daily. - pantoprazole DR (PROTONIX) 40 mg tablet In the morning, TAKE 1 TABLET DAILY ON EMPTY STOMACH Problem List As Of Date 03/03/2024 Noted Resolved PAIN JOINT, KNEE [M25.569] 12/09/2006 Obesity, Class III, BMI 40-49.9 (morbid obesity*12/09/2006 02/23/2022 PLEURAL EFFUSION NOS [J90] 06/27/2008 Supervision of Other High-Risk [O09.8*07/02/2009 03/18/2010 Decreased Movements, Affecting Management*09/05/2009 03/18/2010 Depression [F32.A] 12/17/2010 Plantar fascial fibromatosis [M72.2] 04/05/2012 Vitamin d deficiency [E55.9] 11/07/2012 AGUSTO (obstructive sleep apnea) [G47.33] 07/05/2013 Amenorrhea [N91.2] 10/30/2013 Impaired fasting blood sugar [R73.01] 03/03/2016 Hypertriglyceridemia [E78.1] 03/03/2016 Tetrahydrocannabinol (THC) use disorder, mild, *06/03/2016 Cervicalgia [M54.2] 08/12/2016 Chronic low back pain without sciatica [M54.50,*08/12/2016 Diffuse myofascial pain syndrome [M79.18] 08/12/2016 Myalgia [M79.10] 07/13/2017 Thyroid nodule [E04.1] 06/09/2018 Essential hypertension [I10] 09/20/2020 Gastroesophageal reflux disease [K21.9] 02/17/2021 Gastroesophageal reflux disease with esophagiti*02/24/2021 02/24/2021 Borderline personality disorder (HCC) [F60.3] 10/31/2021 Chronic post-traumatic stress disorder (PTSD) [*10/31/2021 MG (generalized anxiety disorder) [F41.1] 10/31/2021 Bipolar 2 disorder (HCC) [F31.81] 10/31/2021 Acute nonintractable headache [R51.9] 12/09/2021 Word finding difficulty [R47.89] 12/09/2021 Memory deficit [R41.3] 12/09/2021 Bilateral leg paresthesia [R20.2] 12/09/2021 Chronic bilateral thoracic back pain [M54.6, G8*12/09/2021 Thunderclap headache [G44.53] 12/09/2021 Obesity, Class II, BMI 35-39.9 [E66.9] 03/02/2024 Encounter Status:Closed by JOSEE BOYD on 03/03/24 [facility]OV[facility] 03-02-2024 CNOV Office Visit (ENAGST ) DAMARIS DYKES ([id number]) 1985 F Date Time Provider Department 03/02/24 3:00 PM CARLOS BROWNE During your visit today, we recorded the following information about you: Pulse Blood pressure Weight Height 90/minute 111/72 125.5 kg 1.778 m Carlos Browne MD 03/02/2024 6:27 PM Signed PCP: Michelle Rain CNP. Referring Provider: Power Parker MD Subjective The history is provided by the patient. Damarisgallo Dykes is a 38 year old White female with PMHx of DDD, bipolar disorder, schizoaffective disorder who presented to the endocrine clinic for postoperative hypothyroidism s/p total thyroidectomy evaluation and management History of present illness Initial History: (03/02/24) The patient was previously followed by endocrinology before she recently moved. She was previously followed by Mo Kaur MD at [facility] Endocrine note on 10/19/2023 was reviewed and history was confirmed by the patient. She initially presented with right thyroid nodule which has been stable for many years, however recent FNA showed AUS with suspicious Afirma. Subsequently the patient underwent total thyroidectomy on 08/04/2023 and was found to have incidental papillary microcarcinoma. Postoperative course was complicated by transient hypocalcemia and unilateral vocal cord paralysis. She was initially started on levothyroxine 175 mcg daily which was recently increased to 200 mcg daily based on TSH level of 8.17. Her levothyroxine was adjusted multiple times by her primary care physician. She confirms adherence to levothyroxine which she takes in the morning around 5 AM and goes back to sleep. She complains of temperature dysregulation mostly heat intolerance. The patient reports chronic GI symptoms including diarrhea and constipation, loss of appetite which has resulted in unintentional 150 pounds weight loss. She gets some relief of her GI symptoms by smoking marijuana. She also has history of chronic hypokalemia requiring IV treatment. Review of Systems Constitutional: Positive for malaise/fatigue. Gastrointestinal: Positive for diarrhea, nausea and vomiting. Musculoskeletal: Positive for back pain, joint pain and myalgias. Neurological: Positive for dizziness. HISTORY REVIEWED (electronic chart updated): PAST MEDICAL HISTORY No date: Abnormal glandular Papanicolaou smear of cervix Comment: Abn. Pap smear (cervix) No date: Arthritis No date: Closed dislocation of knee, unspecified part Comment: left No date: Depression Comment: MDD, [facility] [employer] No date: DJD (degenerative joint disease), lumbar 09/20/2020: Essential hypertension No date: Heel spur 03/2014: Hypertriglyceridemia No date: Impaired fasting glucose No date: Methamphetamine abuse (HCC) No date: Obesity, unspecified No date: Obstructive sleep apnea Comment: no longer using C-pap No date: Other specified disorder of gallbladder No date: Pleurisy without mention of effusion or current tuberculosis Comment: Pleurisy No date: Social phobia Comment: MDD, [facility] [employer] 10/2013, 06/2014: Suicidal ideation No date: Tetrahydrocannabinol (THC) use disorder, mild, abuse No date: Thyroid cancer (HCC) No date: Thyroid nodule 03/2014: Vitamin D deficiency PAST SURGICAL HISTORY No date: ABDOMINAL SURGERY HX 11/10/2021: COLONOSCOPY No date: COLPOSCOPY CERVIX UPPER/ADJACENT VAGINA Comment: Colposcopy 11/10/2021: EGD W/O BRSH SPEC VARICIES INJ 02/24/2021: ESOPHAGOGASTRODUODENOSCOPY TRANSORAL DIAGNOSTIC 02/18/2017: HYSTEROSCOPY Comment: DANDC, hysteroscopy and IUD removal / reinsertion 08/23/2007: LAPS SURG CHOLECYSTECTOMY W/CHOLANGIOGRAPHY No date: OTHER Comment: bilateral plantar fasciectomy 07/2008: PAST SURGICAL HISTORY OF Comment: L lung surgery- 2006: TEETH COMPLETE Comment: ? peridontal disease 03/21/2008: THORACENTESIS 08/2023: THYROIDECTOMY FAMILY HISTORY Problem Relation Age of Onset Asthma Mother with atopy Diabetes Mother edentulous Hypertension Mother Psychiatry Mother Stroke Mother Thyroid Mother other (fibromyalgia) Mother other (sleep apnea) Mother RLS other (peripheral vascular disease) Mother Hypertension Father other (Peripheral vascular Disease) Father Alzheimer's Disease Maternal Grandmother COPD Maternal Grandmother Coronary Artery Disease Maternal Grandmother [place] Diabetes Maternal Grandmother Emphysema Maternal Grandmother Heart Maternal Grandmother other (RA) Maternal Grandmother Breast Cancer Paternal Grandmother Asthma Brother with atopy Social History Tobacco Use Smoking status: Every Day Packs/day: 1.00 Years: 22.00 Additional pack years: 0.00 Total pack years: 22.00 Types: Cigarettes Last attempt to quit: 08/26/2018 Years since quittin.5 Smok (more content not included)... Normal [facility] CNOV Office Visit (AGSTOW ) DAMARIS DYKES ([id number]) 1985 F Date Time Provider Department 03/02/24 8:20 AM VARINDER PATEL During your visit today, we recorded the following information about you: Pulse Blood pressure Weight 67/minute 114/76 124.7 kg Varinder Patel, 03/02/2024 12:51 PM Signed [facility] [place] [address] [facility] [address] Dept: [phone] Dept Visit Date: March 01, 2024 Name: Damaris Dykes Date of : 1985 MRN/E #: [id number] Chief Complaint: Damaris Dykes is a 38 year old female here for Patient presents with: New Patient Evaluation Cough: X 2 days Subjective Aug - s/p thryoidectomy for papillary thryoid ca. Thyroid medication: 200mcg 3x/wk then 175mcg every other day. Last TSH: 5.67, and this regimen was in response to that. States 6 pills left. Found nodule 4 yrs ago, then developed globus sensation and dysphagia. 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 Lately she is noticing feeling of globus sensation and coughing up phlegm. Hypokalemia: s/p hospitalization for the same issue. Tried to put on replacement since Aug 2023. Prefers powder packets. Following Gastroenterology at [facility]. Trouble eating and swallowing, anorexia. Found that she has bad GERD and rapid gastric dumping syndrome. She has been struggling with solid answers to her situation. She smokes marijuana to maintain a stable weight and appetite. If she stops smoking she will lose weight, appetite, and feel worse with pain. T[facility] HAND appointment next week. Has a constant menstrual bleeding. S/p Nexplanon. Has light bleeding x 1-2 weeks and then heavy bleeding around menses. Associated pain. 2yrs ago ended up hospitalized for AUB. Taking Fe supplements daily. Last H/H: 13.3/41.3. 1 mo ago with ankle pain and swelling up to the knee. Saw ortho provider in [facility] and booted with x-ray/MRI and searching for DVT. Has tendosynovitis of right leg. Concern for autoimmune process. AGUSTO: can't sleep with CPAP. Stopped wearing it. Doesn't have machine anymore. Mental Health: Last mo ran out of medication. Seeing provider in [place]. animal care service worker couldn't get her an appointment until . Given another Rx but had to restart. Mood: was great on all medications, she is struggling ramping back up. Mind is in overdrive and having a hard time keeping with her own thoughts. Denies thoughts of SI/HI/AVH. She is struggling with dark thoughts, not of self harm but lack of energy and initiative. Next appointment on 03/07/2024 with in [place]. Bilateral hand numbness, intermittent throughout the day. Endorses hx of DJD of c-spine. Review of Systems Constitutional: Negative for activity change, chills and fatigue. HENT: Positive for trouble swallowing and voice change. Respiratory: Positive for cough, choking and shortness of breath. Cardiovascular: Positive for leg swelling. Negative for chest pain and palpitations. Gastrointestinal: Negative for abdominal pain and vomiting. Genitourinary: Negative for difficulty urinating. Musculoskeletal: Negative for arthralgias. Skin: Negative for rash. Social History Tobacco Use Smoking status: Every Day Packs/day: 1.00 Years: 22.00 Additional pack years: 0.00 Total pack years: 22.00 Types: Cigarettes Last attempt to quit: 08/26/2018 Years since quittin.5 Smokeless tobacco: Never Vaping Use Vaping Use: Never used Substance Use Topics Alcohol use: No Drug use: Yes Types: Marijuana Comment: Medical marijuana card, stopped using 01-27-2022, states ALLERGIES Allergen Reactions Adhesive Tape (Karen* blisters Remeron [Mirtazapin* Mental Status Change Current Outpatient Medications Medication Sig predniSONE (DELTASONE) 10 mg tablet Take 2 tablets by mouth once daily for 4 days, THEN 1 tablet once daily for 4 days, THEN 0.5 tablets once daily for 8 days. etonogestrel (NEXPLANON) 68 mg impl subdermal implant 68 mg by SUBDERMAL route. lamotrigine (LAMICTAL ORAL) Take 50 mg by mouth once daily. hydroxyzine HCl (ATARAX ORAL) Take 50 mg by mouth every 6 hours. trazodone HCl (TRAZODONE ORAL) Take 50 mg by mouth daily at bedtime. levothyroxine sodium (SYNTHROID ORAL) Take 175 mcg by mouth every other day in the morning. 200 mcg 3x/wk and 175mcg every other day. ibuprofen (MOTRIN) 800 mg tablet Take 1 tablet by mouth every 8 hours as needed for pain. cyanocobalamin (VITAMIN B-12) 1,000 mcg tab Take 1,000 mcg by mouth once daily. cholecalciferol, vitamin D3, 10 mcg (400 unit) cap Take 400 Units by mouth once daily. pantoprazole DR (PROTONIX) 40 mg tablet In the morning, TAKE 1 TABLET DAILY ON EMPTY STOMACH FIBER, CALCIUM POLYCARBOPHIL, ORAL Take by mouth. promethazine (PHENERGAN) 12.5 mg tablet Take 1-2 tablets by mouth every 8 h (more content not included)... Normal [facility] Comprehensive metabolic 2000 panelon 03-02-2024 Albumin [Mass/Vol] 4.5 g/dL 3.9 - 4.9 g/dL [facility] ALP [Catalytic activity/Vol] 50 U/L 34 - 123 U/L [facility] ALT With P-5'-P [Catalytic activity/Vol] 6 U/L Low 7 - 38 U/L [facility] Anion gap [Moles/Vol] 14 mmol/L 8 - 15 mmol/L [facility] AST With P-5'-P [Catalytic activity/Vol] 14 U/L 13 - 35 U/L [facility] Bilirubin [Mass/Vol] 0.4 mg/dL 0.2 - 1.3 mg/dL [facility] Calcium [Mass/Vol] 8.8 mg/dL 8.5 - 10. 2 mg/dL [facility] Chloride [Moles/Vol] 99 mmol/L 98 - 107 mmol/L [facility] CO2 [Moles/Vol] 28 mmol/L 22 - 30 mmol/L [facility] Creatinine [Mass/Vol] 0.91 mg/dL 0.58 - 0.96 mg/dL [facility] GFR/1.73 sq M.predicted among non-blacks MDRD (S/P/Bld) [Vol rate/Area] 82 mL/min/{1.73_m2} - PINF [facility] Comment on above: Estimated Glomerular Filtration Rate (eGFR) is calculated using the 2020 CKD-EPI creatinine equation. This equation utilizes serum creatinine, sex, and age as parameters. The creatinine assay has traceable calibration to isotope dilution-mass spectrometry. Refer to KDIGO guidelines for clinical interpretation. In patients with unstable renal function, e.g. those with acute kidney injury, the eGFR may not accurately reflect actual GFR. Glucose [Mass/Vol] 89 mg/dL 74 - 99 mg/dL [facility] Comment on above: The [place] Diabete s Association (ADA) provides guidance for cutoff values for fasting glucose and random glucose. The ADA defines fasting as no caloric intake for at least 8 hours. Fasting plasma glucose results between 100 to 125 mg/dL indicate increased risk for diabetes (prediabetes). Fasting plasma glucose results greater than or equal to 126 mg/dL meet the criteria for diagnosis of diabetes. In the absence of unequivocal hyperglycemia, results should be confirmed by repeat testing. In a patient with classic symptoms of hyperglycemia or hyperglycemic crisis, random plasma glucose results greater than or equal to 200 mg/dL meet the criteria for diagnosis of diabetes. Reference: Standards of Medical Care in Diabetes 2016, [place] Diabetes Association. Diabetes Care. 2016.39(Suppl 1). Potassium [Moles/Vol] 3.6 mmol/L Low 3.7 - 5.1 mmol/L [facility] Protein [Mass/Vol] 7.3 g/dL 6.3 - 8.0 g/dL [facility] Sodium [Moles/Vol] 141 mmol/L 136 - 144 mmol/L [facility] Urea nitrogen [Mass/Vol] 8 mg/dL 7 - 21 mg/dL [facility] Albumin [Mass/Vol] 4.5 g/dL Normal 3.9-4.9 [facility] Comment on above: Order Comment: Morgan men Type: BLOOD SPECIMEN Ordering Facility: [facility] Address: [address] [place] [address] Performed By: #### 3 016-3, 17612-5 #### [facility] CLIA [id number] [address] [place] ALP [Catalytic activity/Vol] 50 U/L Normal 34-123 [facility] Comment on above: Order Comment: Morgan bautista Type: BLOOD SPECIMEN Ordering Facility: [facility] Address: [address] [place] [address] Performed By: #### 3 016-3, 26256-3 #### [facility] CLIA [id number] [address] ALT With P-5'-P [Catalytic activity/Vol] 6 U/L Low 7-38 [facility] Comment on above: Order Comment: Speci men Type: BLOOD SPECIMEN Ordering Facility: [facility] Address: [address] [place] [address] Performed By: #### 3 016-3, 13195-2 #### [facility] CLIA [id number] [address] [place] Anion gap [Moles/Vol] 14 mmol/L Normal 8-15 [facility] Comment on above: Order Comment: Speci men Type: BLOOD SPECIMEN Ordering Facility: [facility] Address: [address] [place] [address] Performed By: #### 3 016-3, 74244-1 #### [facility] CLIA [id number] [address] AST With P-5'-P [Catalytic activity/Vol] 14 U/L Normal 13-35 [facility] Comment on above: Order Comment: Speci men Type: BLOOD SPECIMEN Ordering Facility: [facility] Address: [address] [place] [address] Performed By: #### 3 016-3, 49516-7 #### [facility] CLIA [id number] [address] [place] Bilirubin [Mass/Vol] 0.4 mg/dL Normal 0.2-1.3 [facility] Comment on above: Order Comment: Speci men Type: BLOOD SPECIMEN Ordering Facility: [facility] Address: [address] [place] [address] Performed By: #### 3 016-3, 31801-8 #### [facility] CLIA [id number] [address] [place] Calcium [Mass/Vol] 8.8 mg/dL Normal 8.5-10.2 [facility] Comment on above: Order Comment: Speci men Type: BLOOD SPECIMEN Ordering Facility: [facility] Address: [address] [place] [address] Performed By: #### 3 016-3, 58058-4 #### [facility] CLIA [id number] [address] [place] Chloride [Moles/Vol] 99 mmol/L Normal 98-107 [facility] Comment on above: Order Comment: Speci men Type: BLOOD SPECIMEN Ordering Facility: [facility] Address: [address] [place] [address] Performed By: #### 3 016-3, 69078-0 #### [facility] CLIA [id number] [address] [place] CO2 [Moles/Vol] 28 mmol/L Normal 22-30 [facility] Comment on above: Order Comment: Speci men Type: BLOOD SPECIMEN Ordering Facility: [facility] Address: [address] [place] [address] Performed By: #### 3 016-3, 62884-5 #### [facility] CLIA [id number] [address] [place] Creatinine [Mass/Vol] 0.91 mg/dL Normal 0.58-0.96 [facility] Comment on above: Order Comment: Speci men Type: BLOOD SPECIMEN Ordering Facility: [facility] Address: [address] [place] [address] Performed By: #### 3 016-3, 41980-3 #### [facility] CLIA [id number] [address] Creatinine and Glomerular filtration rate.predicted panel (S/P/Bld) 82 mL/min/1.73m??? Normal >=60 [facility] Comment on above: Order Comment: Speci men Type: BLOOD SPECIMEN Ordering Facility: [facility] Address: [address] [place] [address] Result Comment: Rigo mated Glomerular Filtration Rate (eGFR) is calculated using the 2020 CKD-EPI creatinine equation. This equation utilizes serum creatinine, sex, and age as parameters. The creatinine assay has traceable calibration to isotope dilution-mass spectrometry. Refer to KDIGO guidelines for clinical interpretation. In patients with unstable renal function, e.g. those with acute kidney injury, the eGFR may not accurately reflect actual GFR. Performed By: #### 3 016-3, 31305-1 #### [facility] CLIA [id number] [address] [place] [address] [place] Glucose [Mass/Vol] 89 mg/dL Normal 74-99 [facility] Comment on above: Order Comment: Speci men Type: BLOOD SPECIMEN Ordering Facility: [facility] Address: [address] [place] [address] Result Comment: The [place] Diabetes Association (ADA) provides guidance for cutoff values for fasting glucose and random glucose. The ADA defines fasting as no caloric intake for at least 8 hours. Fasting plasma glucose results between 100 to 125 mg/dL indicate increased risk for diabetes (prediabetes). Fasting plasma glucose results greater than or equal to 126 mg/dL meet the criteria for diagnosis of diabetes. In the absence of unequivocal hyperglycemia, results should be confirmed by repeat testing. In a patient with classic symptoms of hyperglycemia or hyperglycemic crisis, random plasma glucose results greater than or equal to 200 mg/dL meet the criteria for diagnosis of diabetes. Reference: Standards of Medical Care in Diabetes 2016, [place] Diabetes Association. Diabetes Care. 2016.39(Suppl 1). Performed By: #### 3 016-3, 96635-1 #### [facility] CLIA [id number] [address] [place] Potassium [Moles/Vol] 3.6 mmol/L Low 3.7-5.1 [facility] Comment on above: Order Comment: Morgan bautista Type: BLOOD SPECIMEN Ordering Facility: [facility] Address: [address] [place] [address] Performed By: #### 3 016-3, 44199-3 #### [facility] CLIA [id number] [address] [place] [address] [place] Protein [Mass/Vol] 7.3 g/dL Normal 6.3-8.0 [facility] Comment on above: Order Comment: Speci men Type: BLOOD SPECIMEN Ordering Facility: [facility] Address: [address] [place] [address] Performed By: #### 3 016-3, 59202-0 #### [facility] CLIA [id number] [address] [place] Sodium [Moles/Vol] 141 mmol/L Normal 136-144 [facility] Comment on above: Order Comment: Speci men Type: BLOOD SPECIMEN Ordering Facility: [facility] Address: [address] [place] [address] Performed By: #### 3 016-3, 17222-4 #### [facility] CLIA [id number] [address] [place] Urea nitrogen [Mass/Vol] 8 mg/dL Normal 7-21 [facility] Comment on above: Order Comment: Speci men Type: BLOOD SPECIMEN Ordering Facility: [facility] Address: [address] [place] [address] Performed By: #### 3 016-3, 96168-9 #### [facility] LABORATORY CLIA [id number] [address] [place] ED NOTEon 03-02-2024 ED NOTE HNO ID: [id number] Author: WILNER MORALES RN Service: Emergency Medicine Author Type: Registered Nurse Type: ED Notes Filed: 03/02/2024 18:31 Note Text: Pt d/c per order. Pt stable and ambulatory with steady gait. She sts she will follow up with pcp. Normal [facility] ED NOTE HNO ID: [id number] Author: CASS SEGURA, TANIA Service: Emergency Medicine Author Type: Registered Nurse Type: ED Notes Filed: 03/02/2024 18:15 Note Text: Patient complaints of fatigue since yesterday states that her potassium was checked today and was low Normal [facility] ED PROV NOTEon 03-02-2024 ED PROV NOTE HNO ID: [id number] Author: VICKY JAEGER APRN.CNP Service: Emergency Medicine Author Type: Nurse Practitioner Type: ED Provider Notes Filed: 03/02/2024 18:35 Note Text: ED Provider Note Patient Name: Damaris Dykes : 1985 SERVICE DATE: 03/02/24 History Patient presents with: Fatigue 38-year-old female presenting the ED with complaints of fatigue for the past 2 days. She reports a history of similar. She was seen by primary care and endocrinology today. She had her dose of levothyroxine increased and was also prescribed 20 mEq of potassium twice daily for a potassium of 3.6. Patient states she would like to have her potassium replaced because when it becomes low she becomes symptomatic. PAST MEDICAL HISTORY No date: Abnormal glandular Papanicolaou smear of cervix Comment: Abn. Pap smear (cervix) No date: Arthritis No date: Closed dislocation of knee, unspecified part Comment: left No date: Depression Comment: MDD, [facility] No date: DJD (degenerative joint disease), lumbar 09/20/2020: Essential hypertension No date: Heel spur 03/2014: Hypertriglyceridemia No date: Impaired fasting glucose No date: Methamphetamine abuse (HCC) No date: Obesity, unspecified No date: Obstructive sleep apnea Comment: no longer using C-pap No date: Other specified disorder of gallbladder No date: Pleurisy without mention of effusion or current tuberculosis Comment: Pleurisy No date: Social phobia Comment: MDD, [facility]ing [facility] 10/2013, 06/2014: Suicidal ideation No date: Tetrahydrocannabinol (THC) use disorder, mild, abuse No date: Thyroid cancer (HCC) No date: Thyroid nodule 03/2014: Vitamin D deficiency PAST SURGICAL HISTORY No date: ABDOMINAL SURGERY HX 11/10/2021: COLONOSCOPY No date: COLPOSCOPY CERVIX UPPER/ADJACENT VAGINA Comment: Colposcopy 11/10/2021: EGD W/O BRSH SPEC VARICIES INJ 02/24/2021: ESOPHAGOGASTRODUODENOSCOPY TRANSORAL DIAGNOSTIC 02/18/2017: HYSTEROSCOPY Comment: DANINES, hysteroscopy and IUD removal / reinsertion 08/23/2007: LAPS SURG CHOLECYSTECTOMY W/CHOLANGIOGRAPHY No date: OTHER Comment: bilateral plantar fasciectomy 07/2008: PAST SURGICAL HISTORY OF Comment: L lung surgery- 2006: TEETH COMPLETE Comment: ? peridontal disease 03/21/2008: THORACENTESIS 08/2023: THYROIDECTOMY FAMILY HISTORY Problem Relation Age of Onset Asthma Mother with atopy Diabetes Mother edentulous Hypertension Mother Psychiatry Mother Stroke Mother Thyroid Mother other (fibromyalgia) Mother other (sleep apnea) Mother RLS other (peripheral vascular disease) Mother Hypertension Father other (Peripheral vascular Disease) Father Alzheimer's Disease Maternal Grandmother COPD Maternal Grandmother Coronary Artery Disease Maternal Grandmother [place] Diabetes Maternal Grandmother Emphysema Maternal Grandmother Heart Maternal Grandmother other (RA) Maternal Grandmother Breast Cancer Paternal Grandmother Asthma Brother with atopy Social History Tobacco Use Smoking status: Every Day Packs/day: 1.00 Years: 22.00 Additional pack years: 0.00 Total pack years: 22.00 Types: Cigarettes Last attempt to quit: 08/26/2018 Years since quittin.5 Smokeless tobacco: Never Vaping Use Vaping Use: Never used Substance and Sexual Activity Alcohol use: No Drug use: Yes Types: Marijuana Comment: Medical marijuana card, stopped using 01-27-2022, states Sexual activity: Not Currently Partners: Male ALLERGIES Allergen Reactions Adhesive Tape (Karen* blisters Remeron [Mirtazapin* Mental Status Change Review of Systems Constitutional: Positive for fatigue. All other systems reviewed and are negative. Physical Exam Vitals [03/02/24 181] BP Pulse Temp Temp src Resp SpO2 Weight Height 120/66 84 36.6 ?C (97.8 ?F) Tympanic 20 99 % 135.6 kg (299 lb) -- Physical Exam Vitals and nursing note reviewed. Constitutional: General: She is not in acute distress. Appearance: Normal appearance. She is not ill-appearing. HENT: Head: Normocephalic and atraumatic. Right Ear: External ear normal. Left Ear: External ear normal. Eyes: Extraocular Movements: Extraocular movements intact. Conjunctiva/sclera: Conjunctivae normal. Cardiovascular: Rate and Rhythm: Normal rate and regular rhythm. Heart sounds: Normal heart sounds. Pulmonary: Effort: Pulmonary effort is normal. Breath sounds: Normal breath sounds. Abdominal: General: Abdomen is flat. Musculoskeletal: General: Normal range of motion. Cervical back: Normal range of motion. Skin: General: Skin is warm and dry. Neurological: General: No focal deficit present. Mental Status: She is alert. Psychiatric: Behavior: Behavior normal. Diagnostic Testing ED Labs Ordered and Reviewed - No data to display Procedures ED Course / Clinical Impression Clinical Impressions as (more content not included)... Normal [facility] Panel Informationon 03-02 Interpretation and review of laboratory results Abnormal [facility] THYROID STIMULATING HORMONEo n 03-02-2024 TSH Qn 9.200 m[IU]/L High [facility] Comment on above: If the patient is pr egnant, TSH reference range varies by gestational period: First Trimester (weeks 9-12): 0.180-2.990 mIU/L Second Trimester: 0.110-3.980 mIU/L Third Trimester: 0.480-4.710 mIU/L Marcelo Joshi et al. A Practical Approach for the Verifications and Determination of Site- and Trimester-Specific Reference Intervals for Thyroid Function tests in . Thyroid, 2019:29:3:412-420. Xavi Arceo et al. 2017 Guidelines of the Citizen Of [place] Thyroid Association for the Diagnosis and Management of Thyroid Disease during and the . Thyroid, 2017:27:3:315-389. TSH SerPl-aCncon 03-02-2024 TSH Qn 9.200 m[IU]/L High 0.270-4.200 [facility] Comment on above: Order Comment: Speci men Type: BLOOD SPECIMEN Ordering Facility: [facility] Address: [address] [place] [address] Result Comment: If t he patient is , TSH reference range varies by gestational period: First Trimester (weeks 9-12): 0.180-2.990 mIU/L Second Trimester: 0.110-3.980 mIU/L Third Trimester: 0.480-4.710 mIU/L Marcelo Joshi et al. A Practical Approach for the Verifications and Determination of Site- and Trimester-Specific Reference Intervals for Thyroid Function tests in . Thyroid, 2019:29:3:412-420. Xavi Arceo, et al. 2017 Guidelines of the Citizen Of [place] Thyroid Association for the Diagnosis and Management of Thyroid Disease during and the . Thyroid, 2017:27:3:315-389. Performed By: #### 3 016-3, 84417-9 #### [facility] CLIA [id number] [address] [place] BY IFA WITH REFLEXon Nuclear Ab Ql (S) Negative Normal Negative [facility] Comment on above: Order Comment: Speci men Type: BLOOD SPECIMENOrdering Facility: [facility] Address: [address] [place] [address] Result Comment: Anti -nuclear antibody test is used as an aid in diagnosis of systemic autoimmune diseases. Where positive and clinically warranted, follow-up using disease-specific testing is recommended. Low positive titers are not uncommon with advanced age, certain chronic infections, and malignancies among others. Test methodology: Indirect fluorescence immunoassay (IFA) using HEp-2 cells. Performed By: #### A NAIFR ####[facility] LABCLIA [id number] [facility] [id number] [facility] CNOVon 02-22-2024 [facility] DAMARIS DYKES ([id number]) 1985 F Date Time Provider Department 02/22/24 9:20 AM POWER PARKER [facility] During your visit today, we recorded the following information about you: Power Parker MD 02/22/2024 10:33 AM Signed CHIEF COMPLAINT: Damaris Dykes is a 38 year old female who presents today for follow up of right ankle pain. HISTORY OF PRESENT ILLNESS: Damaris Dykes is a 38 year old female with the presenting complaint of Follow Up of the Right Ankle (MRI review). She was initially evaluated for her right ankle pain and swelling that now occurred insidiously about 3 months ago about 2 months ago on 01/11/2024. At the last visit, a DVT ultrasound study was obtained and was normal. She was started on a Medrol Dosepak as well as obtaining an MRI of her right ankle. She is also placed in a tall walking boot and advised to transition out of that after 2 weeks. The the Medrol Dosepak improved both the swelling and pain, but returned when she came off of the medication. She is still wearing the boot, which will improve the pain, but still has pain when she is in the boot. Still getting intermittent swelling. Pain on the lateral lower leg and into the dorsum of the foot. No known family history of rheumatologic problems. Also with degenerative disc disease and noting that her arms are getting numb at night and so painful that it wakes her up. Does not happen to both arms at the same time. Has had right carpal tunnel syndrome surgery, which did not improve the numbness. Has also had right plantar fasciitis surgery in her right foot. Does note that she lost about 150 pounds over the last few years because she could not eat. Will have pain with eating (diagnosed with rapid gastric dumping). Following with GI. She has had somewhat fragmented care over the last few years as she was previously living in [place], [place]. She then saw endocrinology in [place], [place]. She now has all of her care managed by her previous primary care provider, but is establishing with a new [facility] primary care provider in about 2 weeks. Damaris reports a current pain level of 3 (Ankle-Right). She describes the pain as Aching, Sore. The pain is Continuous (worse at times), and has lasted for 5 Weeks. Interventions tried include Relaxation (walking boot, Ibuprofen, tylenol). She is currently taking ibuprofen, prednisone. Most recent ankle imaging was completed on 01/28/2024 (MRI ANKLE WO IVCON RIGHT) . Patient Health Questionnaire (PHQ-9) 03/12/2017 11/10/2017 10/30/2021 PHQ-9 PHQ-2 Score 6 6 5 PHQ-9 Score 25 24 21 (0-4) minimal depression, (5-9) mild depression, (10-14) moderate depression, (15-19) moderately severe depression, (20-27) severe depression PROMIS Physical Function Score No data to display Last MRI Ankle - Impression Only MRI ANKLE WO IVCON RIGHT Collected: 01/28/2024 7:40 AM (Final result) Impression: IMPRESSION: 1. NO ACUTE OSSEOUS OR SOFT TISSUE ABNORMALITY. 2. DEGENERATIVE CHANGES IN THE LATERAL MIDFOOT AT THE LATERAL CUNEIFORM CUBOID ARTICULATION. 3. MILD PERONEAL TENDINOSIS AND TENOSYNOVITIS. 4. MILD POSTERIOR TIBIALIS TENOSYNOVITIS. 5. CHRONIC PLANTAR FASCIAL THICKENING. ... PAIN EVALUATION 02/22/2024 0905 Pain Level: 3 Pain Location: Ankle-Right Description: Aching;Sore Duration Amount of Time: 5 Duration Units: Weeks Frequency: Continuous worse at times Intervention/Comfort measure: Relaxation walking boot, Ibuprofen, tylenol REVIEW OF SYSTEMS: Constitutional: patient denies any recent fever or significant change in weight Cardiovascular: patient denies any chest pain at rest Respiratory: patient denies any shortness of breath or cough Gastrointestinal: patient denies any current abdominal discomfort Integumentary: patient denies any recent skin changes Musculoskeletal: as noted in the HPI Neurologic: as noted in the HPI Endocrine: patient denies a current diagnosis of diabetes Hemoglobin A1C (%) Date Value 01/08/2021 5.9 06/28/2019 5.1 Hematologic/Lymphatic: patient denies any easily bleeding, any recent infection and denies any recent observable lymph node enlargement Psychologic: negative for any recent depression or anxiety issues SOCIAL HISTORY: Tobacco Use: 1 packs/day, for 22 years. Last attempt to quit 08/26/2018. Types: Cigarettes FAMILY HISTORY: FAMILY HISTORY Problem Relation Age of Onset Asthma Mother with atopy Diabetes Mother edentulous Hypertension Mother Psychiatry Mother Stroke Mother Thyroid Mother other (fibromyalgia) Mother other (sleep apnea) Mother RLS other (peripheral vascular disease) Mother Hypertension Father other (Peripheral vascular Disease) Father Alzheimer's Disease Maternal Grandmother COPD Maternal Grandmother Coronary Artery Disease Maternal Grandmother [place] (more content not included)... Normal [facility] CRP SerPl-mCncon 02-22-2024 CRP [Mass/Vol] mg/L Normal <0.9 [facility] Comment on above: Order Comment: Morgan bautista Type: BLOOD SPECIMENOrdering Facility: [facility] Address: [address] [place] [address] Performed By: #### 1 988-5 ####[facility] LABIA [id number] [place] [address] [place] Cyclic citrullinated peptide IgG Qnon 02-22-2024 CCP ANTIBODY IGG QUALITATIVE Negative Normal Negative [facility] Comment on above: Order Comment: Speci men Type: BLOOD SPECIMENOrdering Facility: [facility] Address: [address] [place] [address] Performed By: #### 3 3935-8 ####[facility] [id number] [place] [address] [place] ESR Westergren method (Bld) [Velocity]on 02-22-2024 ESR (Bld) [Velocity] 2 mm/h Normal 0-20 [facility] Comment on above: Order Comment: Speci men Type: BLOOD SPECIMENOrdering Facility: [facility] Address: [address] [place] [address] Performed By: #### 4 537-7 ####[facility] [id number] [address] [place] Rheumatoid fact SerPl-aCncon 02-22-2024 Rheumatoid factor Qn [IU]/mL Normal <16 [facility] Comment on above: Order Comment: Speci men Type: BLOOD SPECIMENOrdering Facility: [facility] Address: [address] [place] [address] Performed By: #### 1 1572-5 ####[facility] [id number] [address] [place] cCP IgG SerPl-aCncon 024 Cyclic citrullinated peptide IgG Qn <15 Normal <20 [facility] Comment on above: Order Comment: Speci men Type: BLOOD SPECIMENOrdering Facility: [facility] Address: [address] [place] [address] Performed By: #### 3 3935-8 ####[facility] [id number] [place] [address] [place] CNPElizabet 02-04-2024 CNPN Telephone ([facility]) DAMARIS DYKES ([id number]) 1985 F Date Time Provider Department 02/04/24 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 Follow up visit scheduled for February 22, 2024 at [facility], for follow up MRI Allergies As of Date: 02/04/2024 Noted Allergy Reaction ADHESIVE TAPE (ROSINS) 10/17/2008 Comments: blisters REMERON (MIRTAZAPINE) 01/12/2011 1 - Mental Status Change Date Reviewed: 01/27/2024 Reviewed by: Cathy Castellano, RN - Fully Assessed Reason for Visit: Appointment [186] Prescriptions as of 02/04/2024 - etonogestrel (NEXPLANON) 68 mg impl subdermal implant 68 mg by SUBDERMAL route. - lamotrigine (LAMICTAL ORAL) Take by mouth. - hydroxyzine HCl (ATARAX ORAL) Take by mouth. - trazodone HCl (TRAZODONE ORAL) Take by mouth. - levothyroxine sodium (SYNTHROID ORAL) Take by mouth. - ibuprofen (MOTRIN) 800 mg tablet Take 1 tablet by mouth every 8 hours as needed for pain. - promethazine (PHENERGAN) 12.5 mg tablet Take 1-2 tablets by mouth every 8 hours as needed for nausea, vomiting - cyanocobalamin (VITAMIN B-12) 1,000 mcg tab Take 1,000 mcg by mouth once daily. - cholecalciferol, vitamin D3, 10 mcg (400 unit) cap Take 400 Units by mouth once daily. - [id number]-[id number]- dha 18 mg iron-800 mcg-290 mg cppt Take by mouth. - POTASSIUM-99 ORAL Take by mouth. - pantoprazole DR (PROTONIX) 40 mg tablet In the morning, TAKE 1 TABLET DAILY ON EMPTY STOMACH Problem List As Of Date 02/04/2024 Noted Resolved PAIN JOINT, KNEE [M25.569] 12/09/2006 Obesity, Class III, BMI 40-49.9 (morbid obesity*12/09/2006 02/23/2022 PLEURAL EFFUSION NOS [J90] 06/27/2008 Supervision of Other High-Risk [O09.8*07/02/2009 03/18/2010 Decreased Movements, Affecting Management*09/05/2009 03/18/2010 Depression [F32.A] 12/17/2010 Plantar fascial fibromatosis [M72.2] 04/05/2012 Vitamin d deficiency [E55.9] 11/07/2012 AGUSTO (obstructive sleep apnea) [G47.33] 07/05/2013 Amenorrhea [N91.2] 10/30/2013 Impaired fasting blood sugar [R73.01] 03/03/2016 Hypertriglyceridemia [E78.1] 03/03/2016 Tetrahydrocannabinol (THC) use disorder, mild, *06/03/2016 Cervicalgia [M54.2] 08/12/2016 Chronic low back pain without sciatica [M54.50,*08/12/2016 Diffuse myofascial pain syndrome [M79.18] 08/12/2016 Myalgia [M79.10] 07/13/2017 Thyroid nodule [E04.1] 06/09/2018 Essential hypertension [I10] 09/20/2020 Gastroesophageal reflux disease [K21.9] 02/17/2021 Gastroesophageal reflux disease with esophagiti*02/24/2021 02/24/2021 Borderline personality disorder (HCC) [F60.3] 10/31/2021 Chronic post-traumatic stress disorder (PTSD) [*10/31/2021 MG (generalized anxiety disorder) [F41.1] 10/31/2021 Bipolar 2 disorder (HCC) [F31.81] 10/31/2021 Acute nonintractable headache [R51.9] 12/09/2021 Word finding difficulty [R47.89] 12/09/2021 Memory deficit [R41.3] 12/09/2021 Bilateral leg paresthesia [R20.2] 12/09/2021 Chronic bilateral thoracic back pain [M54.6, G8*12/09/2021 Thunderclap headache [G44.53] 12/09/2021 Encounter Status:Closed by KEISHA CHAVEZ on 02/04/24 [facility] MR Ankle - right WO contrast on 01-28-2024 IMPRESSION: 1. NO ACUTE OSSEOUS OR SOFT TISSUE ABNORMALITY. 2. DEGENERATIVE CHANGES IN THE LATERAL MIDFOOT AT THE LATERAL CUNEIFORM CUBOID ARTICULATION. 3. MILD PERONEAL TENDINOSIS AND TENOSYNOVITIS. 4. MILD POSTERIOR TIBIALIS TENOSYNOVITIS. 5. CHRONIC PLANTAR FASCIAL THICKENING. Talent Coordinator: [facility]PITALMimi Transcribe Date/Time: Jan 28 2024 8:56A Dictated by : VINNY STRATTON MD This examination was interpreted and the report reviewed and electronically signed by: VINNY STRATTON MD on Jan 28 2024 9:04AM [facility] DIVISION OF RADIOLOGY * * *Final Report* * * DATE OF EXAM: Jan 28 2024 7:40AM [facility] 0164 - MRI ANKLE WO IVCON RT / PROCEDURE REASON: Acute right ankle pain * * * * Physician Interpretation * * * * MRI ANKLE WO IVCON RT INDICATION: Acute right ankle pain. No specific injury. Question of acute tendinitis versus neuropathic pain or occult fracture. MRI for further evaluation. .. COMPARISON: Radiographs dated 01/11/2024 . TECHNIQUE: Multiplanar PD, T1 and T2 weighted images. RESULT: Anterior talofibular ligament: Within normal limits. Posterior talofibular ligament: Within normal limits. Anterior-inferior tibiofibular ligament: Within normal limits. Posterior tibiofibular ligament: Within normal limits. Calcaneofibular ligament: Within normal limits. Deltoid ligament: Within normal limits. Spring ligament: Within normal limits. Posterior tibial tendon: Intact with mild tenosynovitis distally. Focal thickening of the distal tendon is noted likely due to a fibrocartilaginous node.. Flexor digitorum longus tendon: Within normal limits. Flexor hallucis longus tendon: Within normal limits. Peroneal tendons: Mild tendinosis and tenosynovitis in the peroneus longus and brevis tendons. Extensor tendons: Within normal limits. Achilles' tendon: Mild fusiform thickening of the distal Achilles tendon with increased intrinsic T2 signal compatible with mild tendinosis.. Bone marrow: Subchondral edema signal in the lateral cuneiform and cuboid at the cuneiform cuboid articulation likely due to degenerative changes. Marrow signal is otherwise normal. No fractures. No marrow replacing lesions.. Talar dome: Within normal limits. Plantar fascia: Mild thickening and increased signal of the central band of the plantar fascia compatible with chronic plantar fasciitis. The tarsal tunnel and sinus tarsi are within normal limits. Joint fluid: No joint effusion or synovitis. .. Localizer images: No additional findings. DIVISION OF RADIOLOGY Provider, Arsenio Bermudez [facility] - 01/28/2024 * * *Final Report* * * DATE OF EXAM: Jan 28 2024 7:40AM [facility] 0164 - MRI ANKLE WO IVCON RT / PROCEDURE REASON: Acute right ankle pain * * * * Physician Interpretation * * * * MRI ANKLE WO IVCON RT INDICATION: Acute right ankle pain. No specific injury. Question of acute tendinitis versus neuropathic pain or occult fracture. MRI for further evaluation. .. COMPARISON: Radiographs dated 01/11/2024 . TECHNIQUE: Multiplanar PD, T1 and T2 weighted images. RESULT: Anterior talofibular ligament: Within normal limits. Posterior talofibular ligament: Within normal limits. Anterior-inferior tibiofibular ligament: Within normal limits. Posterior tibiofibular ligament: Within normal limits. Calcaneofibular ligament: Within normal limits. Deltoid ligament: Within normal limits. Spring ligament: Within normal limits. Posterior tibial tendon: Intact with mild tenosynovitis distally. Focal thickening of the distal tendon is noted likely due to a fibrocartilaginous node.. Flexor digitorum longus tendon: Within normal limits. Flexor hallucis longus tendon: Within normal limits. Peroneal tendons: Mild tendinosis and tenosynovitis in the peroneus longus and brevis tendons. Extensor tendons: Within normal limits. Achilles' tendon: Mild fusiform thickening of the distal Achilles tendon with increased intrinsic T2 signal compatible with mild tendinosis.. Bone marrow: Subchondral edema signal in the lateral cuneiform and cuboid at the cuneiform cuboid articulation likely due to degenerative changes. Marrow signal is otherwise normal. No fractures. No marrow replacing lesions.. Talar dome: Within normal limits. Plantar fascia: Mild thickening and increased signal of the central band of the plantar fascia compatible with chronic plantar fasciitis. The tarsal tunnel and sinus tarsi are within normal limits. Joint fluid: No joint effusion or synovitis. .. Localizer images: No additional findings. IMPRESSION IMPRESSION: 1. NO ACUTE OSSEOUS OR SOFT TISSUE ABNORMALITY. 2. DEGENERATIVE CHANGES IN THE LATERAL MIDFOOT AT THE LATERAL CUNEIFORM CUBOID ARTICULATION. 3. MILD PERONEAL TENDINOSIS AND TENOSYNOVITIS. 4. MILD POSTERIOR TIBIALIS TENOSYNOVITIS. 5. CHRONIC PLANTAR FASCIAL THICKENING. Talent Coordinator: LUIS Transcribe Date/Time: Jan 28 2024 8:56A Dictated by : VINNY STRATTON MD This examination was interpreted and the report reviewed and electronically signed by: VINNY STRATTON MD on Jan 28 2024 9:04AM EST [facility] Radiology Study observation (narrative) [facility] MR Ankle - right WO contrast Ordered By: [facility]cf Provider on 01-28-[address] [facility] MRI ANKLE WO IVCON RTon 01-01 MRI ANKLE WO IVCON RT * * *Final Report* * * DATE OF EXAM: Jan 28 2024 7:40AM [facility] 0164 - MRI ANKLE WO IVCON RT / PROCEDURE REASON: Acute right ankle pain * * * * Physician Interpretation * * * * MRI ANKLE WO IVCON RT INDICATION: Acute right ankle pain. No specific injury. Question of acute tendinitis versus neuropathic pain or occult fracture. MRI for further evaluation. .. COMPARISON: Radiographs dated 01/11/2024 . TECHNIQUE: Multiplanar PD, T1 and T2 weighted images. RESULT: Anterior talofibular ligament: Within normal limits. Posterior talofibular ligament: Within normal limits. Anterior-inferior tibiofibular ligament: Within normal limits. Posterior tibiofibular ligament: Within normal limits. Calcaneofibular ligament: Within normal limits. Deltoid ligament: Within normal limits. Spring ligament: Within normal limits. Posterior tibial tendon: Intact with mild tenosynovitis distally. Focal thickening of the distal tendon is noted likely due to a fibrocartilaginous node.. Flexor digitorum longus tendon: Within normal limits. Flexor hallucis longus tendon: Within normal limits. Peroneal tendons: Mild tendinosis and tenosynovitis in the peroneus longus and brevis tendons. Extensor tendons: Within normal limits. Achilles' tendon: Mild fusiform thickening of the distal Achilles tendon with increased intrinsic T2 signal compatible with mild tendinosis.. Bone marrow: Subchondral edema signal in the lateral cuneiform and cuboid at the cuneiform cuboid articulation likely due to degenerative changes. Marrow signal is otherwise normal. No fractures. No marrow replacing lesions.. Talar dome: Within normal limits. Plantar fascia: Mild thickening and increased signal of the central band of the plantar fascia compatible with chronic plantar fasciitis. The tarsal tunnel and sinus tarsi are within normal limits. Joint fluid: No joint effusion or synovitis. .. Localizer images: No additional findings. IMPRESSION: 1. NO ACUTE OSSEOUS OR SOFT TISSUE ABNORMALITY. 2. DEGENERATIVE CHANGES IN THE LATERAL MIDFOOT AT THE LATERAL CUNEIFORM CUBOID ARTICULATION. 3. MILD PERONEAL TENDINOSIS AND TENOSYNOVITIS. 4. MILD POSTERIOR TIBIALIS TENOSYNOVITIS. 5. CHRONIC PLANTAR FASCIAL THICKENING. Talent Coordinator: LUIS Transcribe Date/Time: Jan 28 2024 8:56A Dictated by : VINNY STRATTON MD This examination was interpreted and the report reviewed and electronically signed by: VINNY STRATTON MD on Jan 28 2024 9:04AM EST [id number] Normal [facility] Basic metabolic 2000 panelon 01-27-2024 Anion gap [Moles/Vol] 8 mmol/L Normal 8-15 [facility] Comment on above: Order Comment: Speci men Type: BLOOD SPECIMENOrdering Facility: [facility] Address: [address] [id number] Performed By: #### L [id number], 88381-5 ####[facility] LABCLIA [id number] [place] [address] [place] Calcium [Mass/Vol] 9.3 mg/dL Normal 8.5-10.2 [facility] Comment on above: Order Comment: Speci men Type: BLOOD SPECIMENOrdering Facility: [facility] Address: [address] [place] [address] Performed By: #### L [id number], 88166-7 ####[facility] LABCLIA [id number] [place] [address] [place] Chloride [Moles/Vol] 101 mmol/L Normal 98-107 [facility] Comment on above: Order Comment: Speci men Type: BLOOD SPECIMENOrdering Facility: [facility] Address: [address] [place] [address] Performed By: #### L [id number], 66435-1 ####[facility] LABCLIA [id number] [place] [address] [place] CO2 [Moles/Vol] 31 mmol/L High 22-30 [facility] Comment on above: Order Comment: Speci men Type: BLOOD SPECIMENOrdering Facility: [facility] Address: [address] [place] [address] Performed By: #### L [id number], 87983-3 ####[facility] LABIA [id number] [address] STATES OF [facility] Creatinine [Mass/Vol] 1.00 mg/dL High 0.58-0.96 [facility] Comment on above: Order Comment: Speci men Type: BLOOD SPECIMENOrdering Facility: [facility] Address: [address] [place] [address] Performed By: #### L [id number], 69453-8 ####[facility] LABIA [id number] [address] Creatinine and Glomerular filtration rate.predicted panel (S/P/Bld) 74 mL/min/1.73m??? Normal >=60 [facility] Comment on above: Order Comment: Speci men Type: BLOOD SPECIMENOrdering Facility: [facility] Address: [address] [place] [address] Result Comment: Rigo mated Glomerular Filtration Rate (eGFR) is calculated using the 2020 CKD-EPI creatinine equation. This equation utilizes serum creatinine, sex, and age as parameters. The creatinine assay has traceable calibration to isotope dilution-mass spectrometry. Refer to KDIGO guidelines for clinical interpretation. In patients with unstable renal function, e.g. those with acute kidney injury, the eGFR may not accurately reflect actual GFR. Performed By: #### L [id number], 95695-2 ####[facility] LABIA [id number] [place] [address] [place] Glucose [Mass/Vol] 79 mg/dL Normal 74-99 [facility] Comment on above: Order Comment: Speci men Type: BLOOD SPECIMENOrdering Facility: [facility] Address: [address] [place] [address] Result Comment: The [place] Diabetes Association (ADA) provides guidance for cutoff values for fasting glucose and random glucose. The ADA defines fasting as no caloric intake for at least 8 hours. Fasting plasma glucose results between 100 to 125 mg/dL indicate increased risk for diabetes (prediabetes). Fasting plasma glucose results greater than or equal to 126 mg/dL meet the criteria for diagnosis of diabetes. In the absence of unequivocal hyperglycemia, results should be confirmed by repeat testing. In a patient with classic symptoms of hyperglycemia or hyperglycemic crisis, random plasma glucose results greater than or equal to 200 mg/dL meet the criteria for diagnosis of diabetes. Reference: Standards of Medical Care in Diabetes 2016, [place] Diabetes Association. Diabetes Care. 2016.39(Suppl 1). Performed By: #### Adi [id number], 67727-0 ####[facility] LABCLIA [id number] [place] [id number] [place] Potassium [Moles/Vol] 3.2 mmol/L Low 3.7-5.1 [facility] Comment on above: Order Comment: Leoneli men Type: BLOOD SPECIMENOrdering Facility: [facility] Address: [address] [place] [address] Performed By: #### L [id number], 54064-3 ####[facility] LABCLIA [id number] [place] [address] [place] Sodium [Moles/Vol] 140 mmol/L Normal 136-144 [facility] Comment on above: Order Comment: Speci men Type: BLOOD SPECIMENOrdering Facility: [facility] Address: [address] [place] [address] Performed By: #### L [id number], 75688-5 ####[facility] LABCLIA [id number] [place] [address] [place] Urea nitrogen [Mass/Vol] 6 mg/dL Low 7-21 [facility] Comment on above: Order Comment: Speci men Type: BLOOD SPECIMENOrdering Facility: [facility] Address: [address] [place] [address] Performed By: #### L [id number], 70428-4 ####[facility] LABCLIA [id number] [place] [address] [place] CBC W Auto Differential pane l (Bld)on 01-27-2024 Basophils (Bld) [#/Vol] 0.09 10*3/uL Normal <0.11 [facility] Comment on above: Order Comment: Speci men Type: BLOOD SPECIMENOrdering Facility: [facility] Address: [address] [place] [address] Performed By: #### 5 7021-8 ####[facility] LABCLIA [id number] [place] [id number] [place] Basophils/100 WBC (Bld) 0.8 % Normal [facility] Comment on above: Order Comment: Speci men Type: BLOOD SPECIMENOrdering Facility: [facility] Address: [address] [place] [address] Performed By: #### 5 7021-8 ####[facility] LABCLIA [id number] [place] [address] [place] Differential cell count method Nom (Bld) Auto Normal [facility] Comment on above: Order Comment: Speci men Type: BLOOD SPECIMENOrdering Facility: [facility] Address: [address] [place] [address] Performed By: #### 5 7021-8 ####[facility] LABCLIA [id number] [place] [address] [place] Eosinophils (Bld) [#/Vol] 0.18 10*3/uL Normal <0.46 [facility] Comment on above: Order Comment: Speci men Type: BLOOD SPECIMENOrdering Facility: [facility] Address: [address] [place] [address] Performed By: #### 5 7021-8 ####[facility] LABCLIA [id number] [place] [address] [place] Eosinophils/100 WBC (Bld) 1.7 % Normal [facility] Comment on above: Order Comment: Speci men Type: BLOOD SPECIMENOrdering Facility: [facility] Address: [address] [place] [address] Performed By: #### 5 7021-8 ####[facility] LABIA [id number] [place] [id number] [place] Erythrocyte distribution width (RBC) [Ratio] 16.3 % High 11.5-15.0 [facility] Comment on above: Order Comment: Speci men Type: BLOOD SPECIMENOrdering Facility: [facility] Address: [address] [place] [address] Performed By: #### 5 7021-8 ####[facility] [id number] [place] [id number] [place] Hematocrit (Bld) [Volume fraction] 41.3 % Normal 36.0-46.0 [facility] Comment on above: Order Comment: Speci men Type: BLOOD SPECIMENOrdering Facility: [facility] Address: [address] [place] [address] Performed By: #### 5 7021-8 ####[facility] LABIA [id number] [place] [id number] [place] Hemoglobin (Bld) [Mass/Vol] 13.3 g/dL Normal 11.5-15.5 [facility] Comment on above: Order Comment: Speci men Type: BLOOD SPECIMENOrdering Facility: [facility] Address: [address] [place] [address] Performed By: #### 5 7021-8 ####[facility] LABIA [id number] [place] [address] [place] Immature granulocytes (Bld) [#/Vol] 0.04 10*3/uL Normal <0.10 [facility] Comment on above: Order Comment: Speci men Type: BLOOD SPECIMENOrdering Facility: [facility] Address: [address] [place] [address] Performed By: #### 5 7021-8 ####[facility] LABCLIA [id number] [place] [address] [place] [facility] Immature granulocytes/100 WBC (Bld) 0.4 % Normal [facility] Comment on above: Order Comment: Speci men Type: BLOOD SPECIMENOrdering Facility: [facility] Address: [address] [place] [address] Performed By: #### 5 7021-8 ####[facility] LABCLIA [id number] [place] [address] [place] Lymphocytes (Bld) [#/Vol] 3.44 10*3/uL Normal 1.00-4.00 [facility] Comment on above: Order Comment: Speci men Type: BLOOD SPECIMENOrdering Facility: [facility] Address: [address] [place] [address] Performed By: #### 5 7021-8 ####[facility] LABCLIA [id number] [address] STATES [facility] Lymphocytes/100 WBC (Bld) 32.3 % Normal [facility] Comment on above: Order Comment: Speci men Type: BLOOD SPECIMENOrdering Facility: [facility] Address: [address] [place] [address] Performed By: #### 5 7021-8 ####[facility] LABCLIA [id number] [place] [address] [place] MCH (RBC) [Entitic mass] 26.5 pg Normal 26.0-34.0 [facility] Comment on above: Order Comment: Speci men Type: BLOOD SPECIMENOrdering Facility: [facility] Address: [address] [place] [address] Performed By: #### 5 7021-8 ####[facility] LABCLIA [id number] [place] [address] [place] MCHC (RBC) [Mass/Vol] 32.2 g/dL Normal 30.5-36.0 [facility] Comment on above: Order Comment: Speci men Type: BLOOD SPECIMENOrdering Facility: [facility] Address: [address] [place] [address] Performed By: #### 5 7021-8 ####[facility] LABIA [id number] [place] [id number] [place] MCV (RBC) [Entitic vol] 82.4 fL Normal 80.0-100.0 [facility] Comment on above: Order Comment: Speci men Type: BLOOD SPECIMENOrdering Facility: [facility] Address: [address] [place] [address] Performed By: #### 5 7021-8 ####[facility] [id number] [place] [id number] [place] Monocytes (Bld) [#/Vol] 0.67 10*3/uL Normal <0.87 [facility] Comment on above: Order Comment: Speci men Type: BLOOD SPECIMENOrdering Facility: [facility] Address: [address] [place] [address] Performed By: #### 5 7021-8 ####[facility] LABIA [id number] [address] [id number] [place] Monocytes/100 WBC (Bld) 6.3 % Normal [facility] Comment on above: Order Comment: Speci men Type: BLOOD SPECIMENOrdering Facility: [facility] Address: [address] [place] [address] Performed By: #### 5 7021-8 ####[facility] LABIA [id number] [place] [id number] [place] Neutrophils (Bld) [#/Vol] 6.24 10*3/uL Normal 1.45-7.50 [facility] Comment on above: Order Comment: Speci men Type: BLOOD SPECIMENOrdering Facility: [facility] Address: [address] [place] [address] Performed By: #### 5 7021-8 ####[facility] LABCLIA [id number] [place] [address] [place] Neutrophils/100 WBC (Bld) 58.5 % Normal [facility] Comment on above: Order Comment: Speci men Type: BLOOD SPECIMENOrdering Facility: [facility] Address: [address] [place] [address] Performed By: #### 5 7021-8 ####[facility] LABIA [id number] [place] [address] [place] Nucleated RBC (Bld) [#/Vol] 10*3/uL Normal <0.01 [facility] Comment on above: Order Comment: Speci men Type: BLOOD SPECIMENOrdering Facility: [facility] Address: [address] [place] [address] Performed By: #### 5 7021-8 ####[facility] LABIA [id number] [place] [id number] [place] Nucleated RBC/100 WBC (Bld) [Ratio] 0.0 /100 WBC Normal [facility] Comment on above: Order Comment: Speci men Type: BLOOD SPECIMENOrdering Facility: [facility] Address: [address] [place] [address] Performed By: #### 5 7021-8 ####[facility] LABCLIA [id number] [place] [id number] [place] Platelet mean volume (Bld) [Entitic vol] 9.3 fL Normal 9.0-12.7 [facility] Comment on above: Order Comment: Speci men Type: BLOOD SPECIMENOrdering Facility: [facility] Address: [address] [place] [address] Performed By: #### 5 7021-8 ####[facility] LABCLIA [id number] [place] [address] [place] Platelets (Bld) [#/Vol] 356 10*3/uL Normal 150-400 [facility] Comment on above: Order Comment: Speci men Type: BLOOD SPECIMENOrdering Facility: [facility] Address: [address] [place] [address] Performed By: #### 5 7021-8 ####[facility] LABIA [id number] [place] [address] [place] RBC (Bld) [#/Vol] 5.01 10*6/uL Normal 3.90-5.20 [facility] Comment on above: Order Comment: Speci men Type: BLOOD SPECIMENOrdering Facility: [facility] Address: [address] [place] [address] Performed By: #### 5 7021-8 ####[facility] LABIA [id number] [place] [address] [facility] [place] WBC (Bld) [#/Vol] 10.66 10*3/uL Normal 3.70-11.00 [facility] Comment on above: Order Comment: Speci men Type: BLOOD SPECIMENOrdering Facility: [facility] Address: [address] [place] [address] Performed By: #### 5 7021-8 ####[facility] LABIA [id number] [place] [address] [facility] ECG COMPLETEon 01-27-2024 ECG COMPLETE Ventricular Rate : 8 0 BPM Atrial Rate : 80 BPM P-R Interval : 154 ms QRS Duration : 102 ms Q-T Interval : 374 ms QTC Calculation(Bazett) : 431 ms Calculated P Kermit : 55 degrees Calculated R Kermit : 15 degrees Calculated T Kermit : 23 degrees NORMAL SINUS RHYTHM CANNOT EXCLUDE ANTERIOR MYOCARDIAL INFARCTION , AGE UNDETERMINED ABNORMAL ECG no stemi Confirmed by MD GURROLA ALIA ([id number]), editorial project manager SUZIE DHILLON ([id number]) on 02/07/2024 5:44:14 PM NAME : DAMARIS DYKES PID : [id number] : 1985 Gender : Female Race : ORD : [id number] Procedure Date : Jan 27 2024 19:00:11 Edit Date : Feb 07 2024 17:44:17 Diagnosis: NORMAL SINUS RHYTHM CANNOT EXCLUDE ANTERIOR MYOCARDIAL INFARCTION , AGE UNDETERMINED ABNORMAL ECG no stemi Confirmed by MD GURROLA ALIA ([id number]), editorial project manager SUZIE DHILLON ([id number]) on 02/07/2024 5:44:14 PM Test Reason : Chest Pain Location : 174 : TWED 011 Overread By : MD GURROLA ALIA Edited By : SUZIE DHILLON Referred By : , Acquired by : , Normal [facility] ED NOTEon 01-27-2024 ED NOTE HNO ID: [id number] Author: CATHY CASTELLANO RN Service: Nursing Author Type: Registered Nurse Type: ED Notes Filed: 01/27/2024 19:07 Note Text: Pt c/o CP x2 weeks, Pt states labs were drawn on 01/26/24 levels are low Pt c/o N/V, Pt states she has not vomited today Pt takes two forms of contraceptives d/t irregular bleeding Normal [facility] ED PROV NOTEon 01-27-2024 ED PROV NOTE HNO ID: [id number] Author: SHANNAN GURROLA MD Service: ? Author Type: Physician Type: ED Provider Notes Filed: 02/07/2024 23:06 Note Text: ED Provider Note Patient Name: Damaris Dykes : 1985 SERVICE DATE: 01/27/24 History Patient presents with: Chest Pain Patient presents with substernal chest discomfort. She has associated nausea and fatigue. She states she feels this way when her potassium is low. She has no SOB. No leg pain or edema. She has no falls or injury. No fevers or chills. She had labs done yesterday and potassium was low. PAST MEDICAL HISTORY Diagnosis Date Abnormal glandular Papanicolaou smear of cervix Abn. Pap smear (cervix) Arthritis Closed dislocation of knee, unspecified part left Depression MDD, Counseling [facility]uj[facility] CNP DJD (degenerative joint disease), lumbar Essential hypertension 09/20/2020 Heel spur Hypertriglyceridemia 03/2014 Impaired fasting glucose Methamphetamine abuse (HCC) Obesity, unspecified Obstructive sleep apnea no longer using C-pap Other specified disorder of gallbladder Pleurisy without mention of effusion or current tuberculosis Pleurisy Social phobia [facility], Counseling center Julia Mujica [employer] Suicidal ideation 10/2013, 06/2014 Tetrahydrocannabinol (THC) use disorder, mild, abuse Thyroid nodule Vitamin D deficiency 03/2014 PAST SURGICAL HISTORY Procedure Laterality Date ABDOMINAL SURGERY HX COLONOSCOPY 11/10/2021 COLPOSCOPY CERVIX UPPER/ADJACENT VAGINA Colposcopy EGD W/O BRSH SPEC VARICIES INJ 11/10/2021 ESOPHAGOGASTRODUODENOSCOPY TRANSORAL DIAGNOSTIC 02/24/2021 HYSTEROSCOPY 02/18/2017 DANDC, hysteroscopy and IUD removal / reinsertion LAPS SURG CHOLECYSTECTOMY W/CHOLANGIOGRAPHY 08/23/2007 OTHER bilateral plantar fasciectomy PAST SURGICAL HISTORY OF 07/2008 L lung surgery- TEETH COMPLETE 2006 ? peridontal disease THORACENTESIS 03/21/2008 FAMILY HISTORY Problem Relation Age of Onset Asthma Mother with atopy Diabetes Mother edentulous Hypertension Mother Psychiatry Mother Stroke Mother Thyroid Mother other (fibromyalgia) Mother other (sleep apnea) Mother RLS other (peripheral vascular disease) Mother Hypertension Father other (Peripheral vascular Disease) Father Alzheimer's Disease Maternal Grandmother COPD Maternal Grandmother Coronary Artery Disease Maternal Grandmother [place] Diabetes Maternal Grandmother Emphysema Maternal Grandmother Heart Maternal Grandmother other (RA) Maternal Grandmother Breast Cancer Paternal Grandmother Asthma Brother with atopy Social History Tobacco Use Smoking status: Every Day Packs/day: 1.00 Years: 22.00 Additional pack years: 0.00 Total pack years: 22.00 Types: Cigarettes Last attempt to quit: 08/26/2018 Years since quittin.4 Smokeless tobacco: Never Vaping Use Vaping Use: Never used Substance and Sexual Activity Alcohol use: No Drug use: Yes Types: Marijuana Comment: Medical marijuana card, stopped using 01-27-2022, states Sexual activity: Not Currently Partners: Male ALLERGIES Allergen Reactions Adhesive Tape (Karen* blisters Remeron [Mirtazapin* Mental Status Change Review of Systems Constitutional: Positive for fatigue. HENT: Negative. Eyes: Negative. Respiratory: Negative. Cardiovascular: Negative. Gastrointestinal: Negative. Endocrine: Negative. Genitourinary: Negative. Musculoskeletal: Negative. Skin: Negative. Allergic/Immunologic: Negative. Neurological: Positive for dizziness. Hematological: Negative. Psychiatric/Behavioral: Negative. Physical Exam Vitals BP Pulse Temp Temp src Resp SpO2 Weight Height 01/27/24 1859 01/27/24185801/27/24 1901 01/27/24185801/27/24185801/27/24185801/27/241858 -- 163/87 86 36.7 ?C (98 ?F) Temporal 18 100 % 121.6 kg (268 lb) Physical Exam Vitals and nursing note reviewed. Constitutional: General: She is not in acute distress. Appearance: She is well-developed. She is not ill-appearing or toxic-appearing. HENT: Head: Atraumatic. Eyes: Extraocular Movements: Extraocular movements intact. Conjunctiva/sclera: Conjunctivae normal. Cardiovascular: Rate and Rhythm: Regular rhythm. Heart sounds: Normal heart sounds. No murmur heard. Pulmonary: Effort: Pulmonary effort is normal. Breath sounds: Normal breath sounds. Abdominal: General: Bowel sounds are normal. There is no distension. Palpations: Abdomen is soft. Tenderness: There is no abdominal tenderness. There is no guarding or rebound. Musculoskeletal: General: Normal range of motion. Cervical back: Normal range of motion and neck supple. Right lower leg: No tenderness. No edema. Left lower leg: No tenderness. No edema. Skin: General: Skin is warm and dry. Neurological: General: No focal deficit present. Mental Status: She is alert and oriented to person, place, and time. Diagnostic (more content not included)... Normal [facility] HIGH SENSITIVITY TROPONIN T (INITIAL)on 01-27-2024 Troponin T.cardiac High sensitivity method [Mass/Vol] <6 Normal <12 [facility] Comment on above: Order Comment: Speci men Type: BLOOD SPECIMENOrdering Facility: [facility] Address: [address] [place] [address] Performed By: #### L [id number], 63742-1 ####[facility] [id number] [place] [address] [place] HIGH SENSITIVITY TROPONIN T (SECOND)on 01-27-2024 Troponin T.cardiac High sensitivity method [Mass/Vol] <6 Normal <12 [facility] Comment on above: Order Comment: Speci men Type: BLOOD SPECIMENOrdering Facility: [facility] Address: [address] [place] [address] Performed By: #### L [id number] ####[facility] LABCLIA [id number] [place] [address] [place] XR CHEST 2V FRONTAL/LATon XR CHEST 2V FRONTAL/LAT * * *Final Report* * * DATE OF EXAM: Jan 27 2024 7:16PM TWX [id number] - XR CHEST 2V FRONTAL/LAT / PROCEDURE REASON: Chest Pain * * * * Physician Interpretation * * * * EXAMINATION: CHEST RADIOGRAPH (2 VIEW FRONTAL and LATERAL) CLINICAL HISTORY: Chest Pain MQ: [id number] EXAM DATE/TIME: 01/27/2024 7:16 PM COMPARISON: 02/05/2021. RESULT: Lines, tubes, and devices: None. Lungs and pleura: No consolidation. No lung mass. No pleural effusion. No pneumothorax. Cardiomediastinal silhouette: Normal cardiomediastinal silhouette. Bones and soft tissues: Unremarkable. IMPRESSION: Stable exam with no acute radiographic abnormality. Talent Coordinator: PSCB Transcribe Date/Time: Jan 27 2024 7:46P Dictated by : RASHIDA MARIE MD This examination was interpreted and the report reviewed and electronically signed by: RASHIDA MARIE MD on Jan 27 2024 7:47PM EST [id number] Normal [facility] CNOVon 01-11-2024 CNOV Office Visit [facility] DAMARIS DYKES ([id number]) 1985 F Date Time Provider Department 01/11/24 1:00 PM POWER PARKER During your visit today, we recorded the following information about you: Weight Height 113.4 kg 1.778 m Power Parker MD 01/11/2024 4:12 PM Signed CHIEF COMPLAINT: Damaris Dykes is a 38 year old female who presents today for new evaluation of right foot and ankle pain. HISTORY OF PRESENT ILLNESS: She presents with acute right foot and ankle pain for the the past 4 weeks. Patient does not recall any specific injury. Symptoms started insidiously with right calf/lower leg swelling. Then developed pain in the lateral ankle and then to the dorsum of the foot. She was seen for this in the Emergency Department about 2 week ago on 12/26/2023. No imaging, but was put in a post-operative shoe, with minimal improvement. Overall, she has consistent pain in the right foot > ankle > leg. Will having increased swelling in the whole lower leg as the day progresses. Will get intermittent numbness and tingling randomly. No discoloration in her foot. Pain is the worse on the anterior and lateral ankle. Treatments so far have included medication (Ibuprofen) and the assistive use of a post-operative shoe. Did have a recent thyroidectomy in August 2023. Most recent thyroid levels had a normal TSH. 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 PAIN EVALUATION 01/11/2024 1309 Pain Level: 7 increase to a 09/10 by the end of the day Pain Location: Foot-Right Ankle Description: Aching;Sharp;Stabbing;Radia ting;Numbness;Tingling numbness, tingling at the foot and ankle Duration Amount of Time: 1 Duration Units: Months Frequency: Continuous Intervention/Comfort measure: Medication;Relaxation post op shoe, ibuprofen REVIEW OF SYSTEMS: Constitutional: patient denies any recent fever or significant change in weight Cardiovascular: patient denies any chest pain at rest Respiratory: patient denies any shortness of breath or cough Gastrointestinal: patient denies any current abdominal discomfort Integumentary: patient denies any recent skin changes Musculoskeletal: as noted in the HPI Neurologic: as noted in the HPI Endocrine: patient denies a current diagnosis of diabetes Hemoglobin A1C (%) Date Value 01/08/2021 5.9 06/28/2019 5.1 Hematologic/Lymphatic: patient denies any easily bleeding, any recent infection and denies any recent observable lymph node enlargement Psychologic: negative for any recent depression or anxiety issues SOCIAL HISTORY: Tobacco Use: 1 packs/day, for 22 years. Last attempt to quit 08/26/2018. Types: Cigarettes FAMILY HISTORY: FAMILY HISTORY Problem Relation Age of Onset Asthma Mother with atopy Diabetes Mother edentulous Hypertension Mother Psychiatry Mother Stroke Mother Thyroid Mother other (fibromyalgia) Mother other (sleep apnea) Mother RLS other (peripheral vascular disease) Mother Hypertension Father other (Peripheral vascular Disease) Father Alzheimer's Disease Maternal Grandmother COPD Maternal Grandmother Coronary Artery Disease Maternal Grandmother W[place] Diabetes Maternal Grandmother Emphysema Maternal Grandmother Heart Maternal Grandmother other (RA) Maternal Grandmother Breast Cancer Paternal Grandmother Asthma Brother with atopy ALLERGIES: ALLERGIES Allergen Reactions Adhesive Tape (Karen* blisters Remeron [Mirtazapin* Mental Status Change PAST MEDICAL HISTORY: PAST MEDICAL HISTORY Diagnosis Date Abnormal glandular Papanicolaou smear of cervix Abn. Pap smear (cervix) Arthritis Closed dislocation of knee, unspecified part left Depression MDD, Counseling center Julia Mujica CNP DJD (degenerative joint disease), lumbar Essential hypertension 09/20/2020 Heel spur Hypertriglyceridemia 03/2014 Impaired fasting glucose Methamphetamine abuse (HCC) Obesity, unspecified Obstructive sleep apnea no longer using C-pap Other specified disorder of gallbladder Pleurisy without mention of effusion or current tuberculosis Pleurisy Social phobia MDD, Counseling center Julia Mujica CNP Suicidal ideation 10/2013, 06/2014 Tetrahydrocannabinol (THC) use disorder, mild, abuse Thyroid nodule Vitamin D deficiency 03/2014 PHYSICAL EXAMINATION: Patient's vitals and nursing notes were reviewed. Vitals: Height 177.8 cm (5' 10), weight 113.4 kg (250 lb), last menstrual period 07/14/2021. Body mass index is 35.87 kg/m?. General Appearance: Well appearing, alert, in no acute distress, well-hydrated, and well nourished Body Habitus: well nourished and no acute distress Skin: Skin color, texture, turgor normal, no suspicious rashes or lesions noted Psychiatric: Mood and affect are appropriate, patient is oriented to time, place and person Cardiovascular: Pedal pulses and radial (more content not included)... Normal [facility] LEG VEIN DVT UNL VAS LABo n 01-11-2024 LEG VEIN DVT UNL VAS LAB Non-Invasive Vascular Laboratory [facility] Lower Extremity Venous Duplex Unilateral - Right Date of service/time: 01/11/2024 3:08:30 PM Name: MS. DAMARIS DYKES Date of : 1985 Age: 38 years Gender: F Medical History Prior deep vein thrombosis: No Prior superficial thrombophlebitis: No Clinical Indication Lower extremity swelling. TECHNIQUE -------- A venous duplex ultrasound examination was performed, including grayscale imaging with compression maneuvers and color Doppler and spectral Doppler examination with augmentation maneuvers and response to respiration of the below mentioned veins. FINDINGS -------- RIGHT SIDE Distal external iliac vein Doppler: normal flow. Compression: normal. Common femoral vein Doppler: normal flow. Compression: normal. Femoral vein Doppler: normal flow. Compression: normal. Popliteal vein Doppler: normal flow. Compression: normal. Posterior tibial veins Compression: normal. Peroneal veins Compression: normal. Great saphenous vein Compression: normal. Small saphenous vein Compression: normal. LEFT SIDE Common femoral vein Doppler: normal flow. Compression: normal. IMPRESSION RIGHT SIDE - DEEP VEINS Negative for acute deep vein thrombosis. RIGHT SIDE - SUPERFICIAL VEINS Negative for superficial thrombophlebitis in the great saphenous vein and small saphenous vein. LEFT SIDE - DEEP VEINS Spontaneous and respirophasic flow noted in common femoral vein. Technologist: Antonio Moran T, [facility] Ordering physician: ZORA UGALDE Interpreting physician: Vincent Ortiz MD, TEE Final CC [employer] Medical Image : [id number] [employer] See Link below for Image [facility] XR FOOT 3V AP/LAT/OBL RTon 0 01-11-2024 XR FOOT 3V AP/LAT/OBL RT * * *Final Report* * * DATE OF EXAM: Jan 11 2024 12:45PM LUX [id number] - XR FOOT 3V AP/LAT/OBL RT / PROCEDURE REASON: Pain * * * * Physician Interpretation * * * * Right foot HISTORY: 38 years old Clinical information: Pain PT STS RT FOOT GENERALIZED PAIN, NO KNOWN TRAUMA, WEIGHT BEARING TECHNIQUE: Images: XR FOOT 3V AP/LAT/OBL RT Comparison: None. RESULT: Findings: No evidence of fracture or bone destruction. No periostitis. Joint spaces maintained. There is a calcaneal enthesophyte at the origin of the plantar fascia. IMPRESSION: Plantar spur. Radiograph otherwise unremarkable. Talent Coordinator: PSCB Transcribe Date/Time: Jan 17 2024 8:21P Dictated by : NABEEL RIVER MD This examination was interpreted and the report reviewed and electronically signed by: NABEEL RIVER MD on Jan 17 2024 8:22PM EST [id number] [facility] ED NOTEon 12-26-2023 ED NOTE HNO ID: [id number] Author: NAZARIO MONTANEZ RN Service: Nursing Author Type: Registered Nurse Type: ED Notes Filed: 12/28/2023 16:20 Note Text: Emergency Services: ED Call Back Questionnaire SERVICE DATE: 12/26/2023 Are you feeling better? Yes Any questions about discharge instructions and follow-up care? No Were you able to make a follow up appointment? No, referred to appointment hotline Do you have any further questions? No Is there anything that we could have done differently to improve your ED visit? No No there is no one I want to recognize that was involved with my care. SIGNATURE: Nazario Montanez RN PATIENT NAME: Damaris Dykes DATE: December 28, 2023 TIME: 4:20 PM Normal [facility] ED NOTE HNO ID: [id number] Author: CHANCE GONZALEZ RN Service: ? Author Type: Registered Nurse Type: ED Notes Filed: 12/26/2023 06:57 Note Text: Pt arrives from home with complaints of right ankle/leg pain x2 weeks. Normal [facility] ED PROV NOTEon 12-26-2023 ED PROV NOTE HNO ID: [id number] Author: BRAD GARCIA MD Service: Emergency Medicine Author Type: Physician Type: ED Provider Notes Filed: 12/26/2023 07:11 Note Text: ED Provider Note Patient Name: Damaris Dykes : 1985 SERVICE DATE: 12/26/23 History Patient presents with: Leg Pain: Right HPI 38-year-old female who complains that over the last 2 weeks she is having pain in her ankle and lower leg. She has been doing some increased exercising, but no falls or tripping. The pain is specifically from the anterior lateral proximal foot, up the ankle and into her anterolateral lower leg about a third of the way up. It is worse with flexion and extension at her ankle, walking. Sometimes she will get some paresthesias when she is walking in that area. It is better with rest. She is tried Flexeril and Tylenol but does not feel it is helping. No other joint aches or muscle aches nausea vomiting fever chills diaphoresis. No calf pain redness or swelling. No recent prolonged immobilization. PAST MEDICAL HISTORY Diagnosis Date Abnormal glandular Papanicolaou smear of cervix Abn. Pap smear (cervix) Arthritis Closed dislocation of knee, unspecified part left Depression MDD, Counseling center Julia Mujica [employer] DJD (degenerative joint disease), lumbar Essential hypertension 09/20/2020 Heel spur Hypertriglyceridemia 03/2014 Impaired fasting glucose Methamphetamine abuse (HCC) Obesity, unspecified Obstructive sleep apnea no longer using C-pap Other specified disorder of gallbladder Pleurisy without mention of effusion or current tuberculosis Pleurisy Social phobia MDD, Counseling center Julia Mujica CNP Suicidal ideation 10/2013, 06/2014 Tetrahydrocannabinol (THC) use disorder, mild, abuse Thyroid nodule Vitamin D deficiency 03/2014 PAST SURGICAL HISTORY Procedure Laterality Date ABDOMINAL SURGERY HX COLONOSCOPY 11/10/2021 COLPOSCOPY CERVIX UPPER/ADJACENT VAGINA Colposcopy EGD W/O BRSH SPEC VARICIES INJ 11/10/2021 ESOPHAGOGASTRODUODENOSCOPY TRANSORAL DIAGNOSTIC 02/24/2021 HYSTEROSCOPY 02/18/2017 DANDC, hysteroscopy and IUD removal / reinsertion LAPS SURG CHOLECYSTECTOMY W/CHOLANGIOGRAPHY 08/23/2007 OTHER bilateral plantar fasciectomy PAST SURGICAL HISTORY OF 07/2008 L lung surgery- TEETH COMPLETE 2006 ? peridontal disease THORACENTESIS 03/21/2008 FAMILY HISTORY Problem Relation Age of Onset Asthma Mother with atopy Diabetes Mother edentulous Hypertension Mother Psychiatry Mother Stroke Mother Thyroid Mother other (fibromyalgia) Mother other (sleep apnea) Mother RLS other (peripheral vascular disease) Mother Hypertension Father other (Peripheral vascular Disease) Father Alzheimer's Disease Maternal Grandmother COPD Maternal Grandmother Coronary Artery Disease Maternal Grandmother [place] Diabetes Maternal Grandmother Emphysema Maternal Grandmother Heart Maternal Grandmother other (RA) Maternal Grandmother Breast Cancer Paternal Grandmother Asthma Brother with atopy Social History Tobacco Use Smoking status: Every Day Packs/day: 1.00 Years: 22.00 Additional pack years: 0.00 Total pack years: 22.00 Types: Cigarettes Last attempt to quit: 08/26/2018 Years since quittin.3 Smokeless tobacco: Never Vaping Use Vaping Use: Never used Substance and Sexual Activity Alcohol use: No Drug use: Yes Types: Marijuana Comment: Medical marijuana card, stopped using 01-27-2022, states Sexual activity: Not Currently Partners: Male ALLERGIES Allergen Reactions Adhesive Tape (Karen* blisters Remeron [Mirtazapin* Mental Status Change Review of Systems Constitutional: Negative for chills and fever. HENT: Negative for rhinorrhea. Eyes: Negative for pain and visual disturbance. Respiratory: Negative for shortness of breath. Cardiovascular: Negative for chest pain and palpitations. Gastrointestinal: Negative for nausea and vomiting. Genitourinary: Negative for difficulty urinating and flank pain. Musculoskeletal: Positive for gait problem. Negative for arthralgias and back pain. Skin: Negative for rash. Neurological: Negative for syncope, weakness and numbness. Hematological: Does not bruise/bleed easily. Psychiatric/Behavioral: Negative for suicidal ideas. Physical Exam Vitals [12/26/23 0654] BP Pulse Temp Temp src Resp SpO2 Weight Height 136/69 87 36.5 ?C (97.7 ?F) Oral 18 99 % 113.4 kg (250 lb) -- Physical Exam Vitals and nursing note reviewed. Constitutional: General: She is not in acute distress. Appearance: She is well-developed. HENT: Head: Normocephalic and atraumatic. Eyes: Pupils: Pupils are equal, round, and reactive to light. Neck: Thyroid: No thyromegaly. Vascular: No JVD. Trachea: No tracheal deviation. Cardiovascular: Rate and Rhythm: Normal rate and regular rhythm. Pulses: Normal pulses. Pulmonary: Effort: No r (more content not included)... Normal [facility] Thyrotropinon 12-08-2023 TSH Qn 1.17 m[IU]/L Normal 0.44-3.98 [facility] Comment on above: Order Comment: TSH t esting is performed using different testing methodology at [facility] than at other legacy [facility]. Direct result comparisons should only be made within the same method. Performed By: #### 3 016-3 #### SUZIE Joshi ([id number]) [facility] ([facility]) [address] [place] [address] HCG ( test) Ql (U)o n 09-28-2023 Internal Control Pass [facility] Interpretation and review of laboratory results Normal [facility] POC , urineon 09-28 HCG ( test) Ql (U) Negative Negative [facility] ACUTE TOXICOLOGY PANEL, BLOO Don 09-07-2023 Acetaminophen [Mass/Vol] ug/mL Normal 10.0-30.0 [facility] Comment on above: Performed By: #### D RUBL ####PRICILA HERNANDEZ ([id number])[facility] ([facility])[address] [place] [address] 25563 Ethanol [Mass/Vol] mg/dL Normal <=10 [facility] Comment on above: Performed By: #### D RUBL ####PRICILA HERNANDEZ ([id number])[facility] ([facility])[address] [place] [address] 12391 Salicylates [Mass/Vol] mg/dL Normal 4-20 [facility] Comment on above: Performed By: #### D RUBL ####PRICILA HERNANDEZ ([id number])[facility] ([facility])[address] [place] [address] 32890 Acute Toxicology Panel, Bloo don 09-07-2023 Acetaminophen [Mass/Vol] ug/mL 10.0 - 30.0 ug/mL [facility] Ethanol [Mass/Vol] mg/dL NINF - 10 mg/dL [facility] Interpretation and review of laboratory results Normal [facility] Salicylates [Mass/Vol] mg/dL 4 - 20 mg/dL [facility] CBC W Auto Differential pane l (Bld)on 09-07-2023 Basophils (Bld) [#/Vol] 0.06 10*3/uL [facility] Basophils/100 WBC (Bld) 0.7 % 0.0 - 2.0 % [facility] Eosinophils (Bld) [#/Vol] 0.17 10*3/uL [facility] Eosinophils/100 WBC (Bld) 2.1 % 0.0 - 6.0 % [facility] Erythrocyte distribution width (RBC) [Ratio] 13.7 % 11.5 - 14.5 % [facility] Hematocrit (Bld) [Volume fraction] 38.9 % 36.0 - 46.0 % [facility] Hemoglobin (Bld) [Mass/Vol] 12.3 g/dL 12.0 - 16.0 g/dL [facility] Immature granulocytes (Bld) [#/Vol] 0.02 10*3/uL [facility] Immature granulocytes/100 WBC (Bld) 0.2 % 0.0 - 0.9 % [facility] Comment on above: Immature Granulocyte Count (IG) includes promyelocytes, myelocytes and metamyelocytes but does not include bands. Percent differential counts (%) should be interpreted in the context of the absolute cell counts (cells/UL). Interpretation and review of laboratory results Abnormal [facility] Lymphocytes (Bld) [#/Vol] 2.35 10*3/uL [facility] Lymphocytes/100 WBC (Bld) 28.9 % 13.0 - 44.0 % [facility] MCH (RBC) [Entitic mass] 26.9 pg 26.0 - 34.0 pg [facility] MCHC (RBC) [Mass/Vol] 31.6 g/dL Low 32.0 - 36.0 g/dL [facility] MCV (RBC) [Entitic vol] 85 fL 80 - 100 fL [facility] Monocytes (Bld) [#/Vol] 0.73 10*3/uL [facility] Monocytes/100 WBC (Bld) 9.0 % 2.0 - 10.0 % [facility] Neutrophils (Bld) [#/Vol] 4.80 10*3/uL [facility] Comment on above: Percent differential counts (%) should be interpreted in the context of the absolute cell counts (cells/uL). Neutrophils/100 WBC (Bld) 59.1 % 40.0 - 80.0 % [facility] Nucleated RBC/100 WBC (Bld) [Ratio] 0.0 % [facility] Platelets (Bld) [#/Vol] 310 10*3/uL [facility] RBC (Bld) [#/Vol] 4.58 10*6/uL [facility] WBC (Bld) [#/Vol] 8.1 10*3/uL [facility] Basophils (Bld) [#/Vol] 0.06 x10*3/uL Normal 0.00-0.10 [facility] Comment on above: Performed By: #### 5 7021-8 ####PRICILA HERNANDEZ ([id number])[facility] ([facility])[address] [place] [address] 35607 Basophils/100 WBC (Bld) 0.7 % Normal 0.0-2.0 [facility] Comment on above: Performed By: #### 5 7021-8 ####PRICILA HERNANDEZ ([id number])[facility] ([facility])[address] [place] [address] 43591 Eosinophils (Bld) [#/Vol] 0.17 x10*3/uL Normal 0.00-0.70 [facility] Comment on above: Performed By: #### 5 7021-8 ####PRICILA HERNANDEZ ([id number])[facility] ([facility])[address] [place] [address] 84799 Eosinophils/100 WBC (Bld) 2.1 % Normal 0.0-6.0 [facility] Comment on above: Performed By: #### 5 7021-8 ####PRICILA HERNANDEZ ([id number])[facility] ([facility])[address] [place] [address] 11227 Erythrocyte distribution width (RBC) [Ratio] 13.7 % Normal 11.5-14.5 [facility] Comment on above: Performed By: #### 5 7021-8 ####PRICILA HERNANDEZ ([id number])[facility] ([facility])[address] [place] [address] 01647 Hematocrit (Bld) [Volume fraction] 38.9 % Normal 36.0-46.0 [facility] Comment on above: Performed By: #### 5 7021-8 ####PRICILA HERNANDEZ ([id number])[facility] ([facility])[address] [place] [address] 61581 Hemoglobin (Bld) [Mass/Vol] 12.3 g/dL Normal 12.0-16.0 [facility] Comment on above: Performed By: #### 5 7021-8 ####PRICILA HERNANDEZ ([id number])[facility] ([facility])[address] [place] [address] 06766 Immature granulocytes (Bld) [#/Vol] 0.02 x10*3/uL Normal 0.00-0.70 [facility] Comment on above: Performed By: #### 5 7021-8 ####PRICILA HERNANDEZ ([id number])[facility] ([facility])[address] [place] [address] 21509 Immature granulocytes/100 WBC (Bld) 0.2 % Normal 0.0-0.9 [facility] Comment on above: Result Comment: Jennifer ture Granulocyte Count (IG) includes promyelocytes, myelocytes and metamyelocytes but does not include bands. Percent differential counts (%) should be interpreted in the context of the absolute cell counts (cells/UL). Performed By: #### 5 7021-8 ####PRICILA HERNANDEZ ([id number])[facility] ([facility])[address] [place] [address] 73827 Lymphocytes (Bld) [#/Vol] 2.35 x10*3/uL Normal 1.20-4.80 [facility] Comment on above: Performed By: #### 5 7021-8 ####PRICILA HERNANDEZ ([id number])[facility] ([facility])[address] [place] [address] 62209 Lymphocytes/100 WBC (Bld) 28.9 % Normal 13.0-44.0 [facility] Comment on above: Performed By: #### 5 7021-8 ####PRICILA HERNANDEZ ([id number])[facility] ([facility])[address] [place] [address] 39564 MCH (RBC) [Entitic mass] 26.9 pg Normal 26.0-34.0 [facility] Comment on above: Performed By: #### 5 7021-8 ####PRICILA HERNANDEZ ([id number])[facility] ([facility])[address] [place] [address] 49024 MCHC (RBC) [Mass/Vol] 31.6 g/dL Low 32.0-36.0 [facility] Comment on above: Performed By: #### 5 7021-8 ####PRICILA HERNANDEZ ([id number])[facility] ([facility])[address] [place] [address] 42862 MCV (RBC) [Entitic vol] 85 fL Normal 80-100 [facility] Comment on above: Performed By: #### 5 7021-8 ####PRICILA HERNANDEZ ([id number])[facility] ([facility])[address] [place] [address] 17331 Monocytes (Bld) [#/Vol] 0.73 x10*3/uL Normal 0.10-1.00 [facility] Comment on above: Performed By: #### 5 7021-8 ####PRICILA HERANNDEZ ([id number])[facility] ([facility])[address] [place] [address] 67416 Monocytes/100 WBC (Bld) 9.0 % Normal 2.0-10.0 [facility] Comment on above: Performed By: #### 5 7021-8 ####PRICILA HERNANDEZ ([id number])[facility] ([facility])[address] [place] [address] 42728 Neutrophils (Bld) [#/Vol] 4.80 x10*3/uL Normal 1.20-7.70 [facility] Comment on above: Result Comment: Perc ent differential counts (%) should be interpreted in the context of the absolute cell counts (cells/uL). Performed By: #### 5 7021-8 ####PRICILA HERNANDEZ ([id number])[facility] ([facility])[address] [place] [address] 22477 Neutrophils/100 WBC (Bld) 59.1 % Normal 40.0-80.0 [facility] Comment on above: Performed By: #### 5 7021-8 ####PRICILA HERNANDEZ ([id number])[facility] ([facility])[address] [place] [address] 81547 Nucleated RBC/100 WBC (Bld) [Ratio] 0.0 /100 WBCs Normal 0.0-0.0 [facility] Comment on above: Performed By: #### 5 7021-8 ####PRICILA HERNANDEZ ([id number])[facility] ([facility])[address] [place] [address] 43068 Platelets (Bld) [#/Vol] 310 x10*3/uL Normal 150-450 [facility] Comment on above: Performed By: #### 5 7021-8 ####PRICILA HERNANDEZ ([id number])[facility] ([facility])[address] [place] [address] 62166 RBC (Bld) [#/Vol] 4.58 x10*6/uL Normal 4.00-5.20 [facility] Comment on above: Performed By: #### 5 7021-8 ####PRICILA HERNANDEZ ([id number])[facility] ([facility])[address] [place] [address] 47557 WBC (Bld) [#/Vol] 8.1 x10*3/uL Normal 4.4-11.3 [facility] Comment on above: Performed By: #### 5 7021-8 ####PRICILA HERNANDEZ ([id number])[facility] ([facility])[address] [place] [address] 72339 Comprehensive metabolic 2000 panelon 09-07-2023 Albumin BCP dye [Mass/Vol] 4.9 g/dL 3.4 - 5.0 g/dL [facility] ALP [Catalytic activity/Vol] 49 U/L 33 - 110 U/L [facility] ALT With P-5'-P [Catalytic activity/Vol] 10 U/L 7 - 45 U/L [facility] Comment on above: Patients treated wit h Sulfasalazine may generate falsely decreased results for ALT. Anion gap [Moles/Vol] 12 mmol/L 10 - 20 mmol/L [facility] AST With P-5'-P [Catalytic activity/Vol] 31 U/L 9 - 39 U/L [facility] Bilirubin [Mass/Vol] 0.7 mg/dL 0.0 - 1.2 mg/dL [facility] Calcium [Mass/Vol] 9.2 mg/dL 8.6 - 10. 3 mg/dL [facility] Chloride [Moles/Vol] 105 mmol/L 98 - 107 mmol/L [facility] CO2 [Moles/Vol] 25 mmol/L 21 - 32 mmol/L [facility] [facility] Creatinine [Mass/Vol] 0.84 mg/dL 0.50 - 1.05 mg/dL [facility] eGFR - PINF [facility] Comment on above: Calculations of rigo mated GFR are performed using the 2020 CKD-EPI Study Refit equation without the race variable for the IDMS-Traceable creatinine methods. https://jasn.asnjournals.org/content//ASN.32965088 88 Glucose [Mass/Vol] 83 mg/dL 74 - 99 mg/dL [facility] Interpretation and review of laboratory results Abnormal [facility] Potassium [Moles/Vol] 3.4 mmol/L Low 3.5 - 5.3 mmol/L [facility] Protein [Mass/Vol] 7.5 g/dL 6.4 - 8.2 g/dL [facility] Sodium [Moles/Vol] 139 mmol/L 136 - 145 mmol/L [facility] Urea nitrogen [Mass/Vol] 8 mg/dL 6 - 23 mg/dL [facility] Albumin BCP dye [Mass/Vol] 4.9 g/dL Normal 3.4-5.0 [facility] Comment on above: Performed By: #### 2 4323-8 ####PRICILA HERNANDEZ ([id number])[facility] ([facility])[address] [place] [address] 05497 ALP [Catalytic activity/Vol] 49 U/L Normal 33-110 [facility] Comment on above: Performed By: #### 2 4323-8 ####PRICILA HERNANDEZ ([id number])[facility] ([facility])[address] [place] [address] 26479 ALT With P-5'-P [Catalytic activity/Vol] 10 U/L Normal 7-45 [facility] Comment on above: Result Comment: Mey ents treated with Sulfasalazine may generate falsely decreased results for ALT. Performed By: #### 2 4323-8 ####PRICILA HERNANDEZ ([id number])[facility] ([facility])[address] [place] [address] 45372 Anion gap [Moles/Vol] 12 mmol/L Normal 10-20 [facility] Comment on above: Performed By: #### 2 432-8 ####PRICILA HERNANDEZ ([id number])[facility] ([facility])[address] [place] [address] 10444 AST With P-5'-P [Catalytic activity/Vol] 31 U/L Normal 9-39 [facility] Comment on above: Performed By: #### 2 4323-8 ####PRICILA HERNANDEZ ([id number])[facility] ([facility])[address] [place] [address] 99381 Bilirubin [Mass/Vol] 0.7 mg/dL Normal 0.0-1.2 [facility] Comment on above: Performed By: #### 2 4323-8 ####PRICILA HERNANDEZ ([id number])[facility] ([facility])[address] [place] [address] 83633 Calcium [Mass/Vol] 9.2 mg/dL Normal 8.6-10.3 [facility] Comment on above: Performed By: #### 2 4323-8 ####PRICILA HERNANDEZ ([id number])[facility] ([facility])[address] [place] [address] Chloride [Moles/Vol] 105 mmol/L Normal 98-107 [facility] Comment on above: Performed By: #### 2 4323-8 ####PRICILA HERNANDEZ ([id number])[facility] ([facility])[address] [place] [address] CO2 [Moles/Vol] 25 mmol/L Normal 21-32 [facility] Comment on above: Performed By: #### 2 4323-8 ####PRICILA HERNANDEZ ([id number])[facility] ([facility])[address] [place] [address] 23358 Creatinine [Mass/Vol] 0.84 mg/dL Normal 0.50-1.05 [facility] Comment on above: Performed By: #### 2 4323-8 ####PRICILA HERNANDEZ ([id number])[facility] ([facility])[address] [place] [address] 23610 GFR/1.73 sq M.predicted MDRD (S/P/Bld) [Vol rate/Area] mL/min/{1.73_m2} Normal >60 [facility] Comment on above: Result Comment: Calc ulations of estimated GFR are performed using the 2020 CKD-EPI Study Refit equation without the race variable for the IDMS-Traceable creatinine methods. https://jasn.asnjournals.org/content//ASN.52250547 88 Performed By: #### 2 4323-8 ####PRICILA HERNANDEZ ([id number])[facility] ([facility])[address] [place] [address] 11355 Glucose [Mass/Vol] 83 mg/dL Normal 74-99 [facility] Comment on above: Performed By: #### 2 4323-8 ####PRICILA HERNANDEZ ([id number])[facility] ([facility] [place] [address] Potassium [Moles/Vol] 3.4 mmol/L Low 3.5-5.3 [facility] Comment on above: Performed By: #### 2 4323-8 ####PRICILA HERNANDEZ ([id number])[facility] ([facility])[address] [place] [address] 70005 Protein [Mass/Vol] 7.5 g/dL Normal 6.4-8.2 [facility] Comment on above: Performed By: #### 2 4323-8 ####PRICILA HERNANDEZ ([id number])[facility] ([facility])[address] [place] [address] 32599 Sodium [Moles/Vol] 139 mmol/L Normal 136-145 [facility] Comment on above: Performed By: #### 2 4323-8 ####PRICILA HERNANDEZ ([id number])[facility] ([facility])[address] [place] [address] 65261 Urea nitrogen [Mass/Vol] 8 mg/dL Normal 6-23 [facility] Comment on above: Performed By: #### 2 4323-8 ####PRICILA HERNANDEZ ([id number])[facility] ([facility])[address] [place] [address] 38914 DRUG SCREEN,URINEon 09-07-19 24 Amphetamines Screen Ql (U) Negative Normal Presumptive Negative [facility] Comment on above: Order Comment: Drug screen results are presumptive and should not be used to assesscompliance with prescribed medication. Contact the performing [facility] laboratoryto add-on definitive confirmatory testing if clinically indicated.Toxicology screening results are reported qualitatively. The concentration must???be greater than or equal to the cutoff to be reported as positive. The concentrationat which the screening test can detect an individual drug or metabolite varies.The absence of expected drug(s) and/or drug metabolite(s) may indicate non-compliance,inappropriate timing of specimen collection relative to drug administration, poor drugabsorption, diluted/adulterated urine, or limitations of testing. For medical purposesonly; not valid for forensic use.Interpretive questions should be directed to the laboratory medical directors. Result Comment: CUTO FF LEVEL: 500 NG/ML Cross-reactivity has been reported with high concentrations of the following drugs: buproprion, chloroquine, chlorpromazine, ephedrine, mephentermine, fenfluramine, phentermine, phenylpropanolamine, pseudoephedrine, and propranolol. Performed By: #### D RUG3 ####PRICILA HERNANDEZ ([id number])[facility] ([facility])[address] [place] [address] Barbiturates Screen Ql (U) Negative Normal Presumptive Negative [facility] Comment on above: Order Comment: Drug screen results are presumptive and should not be used to assesscompliance with prescribed medication. Contact the performing [facility] laboratoryto add-on definitive confirmatory testing if clinically indicated.Toxicology screening results are reported qualitatively. The concentration must???be greater than or equal to the cutoff to be reported as positive. The concentrationat which the screening test can detect an individual drug or metabolite varies.The absence of expected drug(s) and/or drug metabolite(s) may indicate non-compliance,inappropriate timing of specimen collection relative to drug administration, poor drugabsorption, diluted/adulterated urine, or limitations of testing. For medical purposesonly; not valid for forensic use.Interpretive questions should be directed to the laboratory medical directors. Result Comment: CUTO FF LEVEL: 200 NG/ML Performed By: #### D RUG3 ####PRICILA HERNANDEZ ([id number])[facility] ([facility])[address] [place] [address] Benzodiazepines Ql (U) Negative Normal Presumptive Negative [facility] Comment on above: Order Comment: Drug screen results are presumptive and should not be used to assesscompliance with prescribed medication. Contact the performing [facility] laboratoryto add-on definitive confirmatory testing if clinically indicated.Toxicology screening results are reported qualitatively. The concentration must???be greater than or equal to the cutoff to be reported as positive. The concentrationat which the screening test can detect an individual drug or metabolite varies.The absence of expected drug(s) and/or drug metabolite(s) may indicate non-compliance,inappropriate timing of specimen collection relative to drug administration, poor drugabsorption, diluted/adulterated urine, or limitations of testing. For medical purposesonly; not valid for forensic use.Interpretive questions should be directed to the laboratory medical directors. Result Comment: CUTO FF LEVEL: 200 NG/ML Performed By: #### D RUG3 ####PRICILA HERNANDEZ ([id number])[facility] ([facility])[address] [place] [address] Benzoylecgonine Screen Ql (U) Negative Normal Presumptive Negative [facility] Comment on above: Order Comment: Drug screen results are presumptive and should not be used to assesscompliance with prescribed medication. Contact the performing [facility] laboratoryto add-on definitive confirmatory testing if clinically indicated.Toxicology screening results are reported qualitatively. The concentration must???be greater than or equal to the cutoff to be reported as positive. The concentrationat which the screening test can detect an individual drug or metabolite varies.The absence of expected drug(s) and/or drug metabolite(s) may indicate non-compliance,inappropriate timing of specimen collection relative to drug administration, poor drugabsorption, diluted/adulterated urine, or limitations of testing. For medical purposesonly; not valid for forensic use.Interpretive questions should be directed to the laboratory medical directors. Result Comment: CUTO FF LEVEL: 150 NG/ML Performed By: #### D RUG3 ####PRICILA HERNANDEZ ([id number])[facility] ([facility])[address] [place], [place] [id number] Cannabinoids Screen Ql (U) Negative Normal Presumptive Negative [facility] Comment on above: Order Comment: Drug screen results are presumptive and should not be used to assesscompliance with prescribed medication. Contact the performing [facility] laboratoryto add-on definitive confirmatory testing if clinically indicated.Toxicology screening results are reported qualitatively. The concentration must???be greater than or equal to the cutoff to be reported as positive. The concentrationat which the screening test can detect an individual drug or metabolite varies.The absence of expected drug(s) and/or drug metabolite(s) may indicate non-compliance,inappropriate timing of specimen collection relative to drug administration, poor drugabsorption, diluted/adulterated urine, or limitations of testing. For medical purposesonly; not valid for forensic use.Interpretive questions should be directed to the laboratory medical directors. Result Comment: CUTO FF LEVEL: 50 NG/ML Performed By: #### D RUG3 ####PRICILA HERNANDEZ ([id number])[facility] ([facility])[address] [place] [address] fentaNYL+Norfentany l Screen Ql (U) Negative Normal Presumptive Negative [facility] Comment on above: Order Comment: Drug screen results are presumptive and should not be used to assesscompliance with prescribed medication. Contact the performing [facility] laboratoryto add-on definitive confirmatory testing if clinically indicated.Toxicology screening results are reported qualitatively. The concentration must???be greater than or equal to the cutoff to be reported as positive. The concentrationat which the screening test can detect an individual drug or metabolite varies.The absence of expected drug(s) and/or drug metabolite(s) may indicate non-compliance,inappropriate timing of specimen collection relative to drug administration, poor drugabsorption, diluted/adulterated urine, or limitations of testing. For medical purposesonly; not valid for forensic use.Interpretive questions should be directed to the laboratory medical directors. Result Comment: CUTO FF LEVEL: 5 NG/ML Performed By: #### D RUG3 ####PRICILA HERNANDEZ ([id number])[facility] ([facility])[address] [place] [address] Opiates Screen Ql (U) Negative Normal Presumptive Negative [facility] Comment on above: Order Comment: Drug screen results are presumptive and should not be used to assesscompliance with prescribed medication. Contact the performing [facility] laboratoryto add-on definitive confirmatory testing if clinically indicated.Toxicology screening results are reported qualitatively. The concentration must???be greater than or equal to the cutoff to be reported as positive. The concentrationat which the screening test can detect an individual drug or metabolite varies.The absence of expected drug(s) and/or drug metabolite(s) may indicate non-compliance,inappropriate timing of specimen collection relative to drug administration, poor drugabsorption, diluted/adulterated urine, or limitations of testing. For medical purposesonly; not valid for forensic use.Interpretive questions should be directed to the laboratory medical directors. Result Comment: CUTO FF LEVEL: 300 NG/ML The opiate screen does not detect fentanyl, meperidine, or tramadol. Oxycodone is not consistently detected (refer to Oxycodone Screen, Urine result). Performed By: #### D RUG3 ####MCNULTY MARY ([id number])[facility] ([facility])[address] [place] [address] oxyCODONE+oxyMORpho ne Screen Ql (U) Negative Normal Presumptive Negative [facility] Comment on above: Order Comment: Drug screen results are presumptive and should not be used to assesscompliance with prescribed medication. Contact the performing [facility] laboratoryto add-on definitive confirmatory testing if clinically indicated.Toxicology screening results are reported qualitatively. The concentration must???be greater than or equal to the cutoff to be reported as positive. The concentrationat which the screening test can detect an individual drug or metabolite varies.The absence of expected drug(s) and/or drug metabolite(s) may indicate non-compliance,inappropriate timing of specimen collection relative to drug administration, poor drugabsorption, diluted/adulterated urine, or limitations of testing. For medical purposesonly; not valid for forensic use.Interpretive questions should be directed to the laboratory medical directors. Result Comment: CUTO FF LEVEL: 100 NG/ML This test will accurately detect both oxycodone and oxymorphone. Performed By: #### D RUG3 ####PRICILA HERNANDEZ ([id number])[facility] ([facility])[address] [place] [address] Phencyclidine Ql (U) Negative Normal Presumptive Negative [facility] Comment on above: Order Comment: Drug screen results are presumptive and should not be used to assesscompliance with prescribed medication. Contact the performing [facility] laboratoryto add-on definitive confirmatory testing if clinically indicated.Toxicology screening results are reported qualitatively. The concentration must???be greater than or equal to the cutoff to be reported as positive. The concentrationat which the screening test can detect an individual drug or metabolite varies.The absence of expected drug(s) and/or drug metabolite(s) may indicate non-compliance,inappropriate timing of specimen collection relative to drug administration, poor drugabsorption, diluted/adulterated urine, or limitations of testing. For medical purposesonly; not valid for forensic use.Interpretive questions should be directed to the laboratory medical directors. Result Comment: CUTO FF LEVEL: 25 NG/ML Cross-reactivity has been reported with dextromethorphan. Performed By: #### D RUG3 ####PRICILA HERNANDEZ ([id number])[facility] ([facility])[address] [place] [address] 14888 Drug Screen, Urineon 024 Amphetamines Screen Ql (U) Negative Presumptive Negative [facility] Comment on above: CUTOFF LEVEL: 500 NG /ML Cross-reactivity has been reported with high concentrations of the following drugs: buproprion, chloroquine, chlorpromazine, ephedrine, mephentermine, fenfluramine, phentermine, phenylpropanolamine, pseudoephedrine, and propranolol. Barbiturates Screen Ql (U) Negative Presumptive Negative [facility] Comment on above: CUTOFF LEVEL: 200 NG /ML Benzodiazepines Ql (U) Negative Presumptive Negative [facility] Comment on above: CUTOFF LEVEL: 200 NG /ML Benzoylecgonine Screen Ql (U) Negative Presumptive Negative [facility] Comment on above: CUTOFF LEVEL: 150 NG /ML Cannabinoids Screen Ql (U) Negative Presumptive Negative [facility] Comment on above: CUTOFF LEVEL: 50 NG/ ML fentaNYL+Norfentany l Screen Ql (U) Negative Presumptive Negative [facility] Comment on above: CUTOFF LEVEL: 5 NG/M L Interpretation and review of laboratory results Normal [facility] Opiates Screen Ql (U) Negative Presumptive Negative [facility] Comment on above: CUTOFF LEVEL: 300 NG /ML The opiate screen does not detect fentanyl, meperidine, or tramadol. Oxycodone is not consistently detected (refer to Oxycodone Screen, Urine result). oxyCODONE+oxyMORpho ne Screen Ql (U) Negative Presumptive Negative [facility] Comment on above: CUTOFF LEVEL: 100 NG /ML This test will accurately detect both oxycodone and oxymorphone. Phencyclidine Ql (U) Negative Presumptive Negative [facility] Comment on above: CUTOFF LEVEL: 25 NG/ ML Cross-reactivity has been reported with dextromethorphan. Drug screen results are presumptive and should not be used to assess compliance with prescribed medication. Contact the performing [facility] laboratory to add-on definitive confirmatory testing if clinically indicated. Toxicology screening results are reported qualitatively. The concentration must be greater than or equal to the cutoff to be reported as positive. The concentration at which the screening test can detect an individual drug or metabolite varies. The absence of expected drug(s) and/or drug metabolite(s) may indicate non-compliance, inappropriate timing of specimen collection relative to drug administration, poor drug absorption, diluted/adulterated urine, or limitations of testing. For medical purposes only; not valid for forensic use. Interpretive questions should be directed to the laboratory medical directors. [facility] ECG 12-LEADon 09-07-2023 ECG 12-LEAD Ventricular Rate 90 Atrial Rate 90 P-R Interval 152 QRS Duration 92 Q-T Interval 362 QTC Calculation(Bazett) 442 P Kermit 68 R Kermit 27 T Kermit 70 QRS Count 15 Q Onset 216 P Onset 140 P Offset 199 T Offset 397 QTC Fredericia 414 Diagnosis Normal sinus rhythm Normal ECG When compared with ECG of 27-MAY-2023 04:05, Previous ECG has undetermined rhythm, needs review See ED provider note for full interpretation and clinical correlation Confirmed by Damaris Peterson ([id number]) on 09/11/2023 12:53:25 PM Normal [facility] HCG ( test) IA.rapi d Ql (U)Ordered By: Hasmukh Kiser on 09-07-2023 HCG ( test) Ql (U) Negative NEGATIVE [facility] Interpretation and review of laboratory results Normal [facility] HCG ( test) IA.rapi d Ql (U)on 09-07-2023 HCG ( test) Ql (U) Negative Normal NEGATIVE [facility] Comment on above: Performed By: #### 5 8077-9 #### MCNULTY MARY ([id number]) [facility] ([facility]) [address] [place] [address] Influenza virus A and B and SARS-CoV-2 (COVID-19) identified ALEJANDRA+probe Nom (Resp)on 09-07-2023 FLUAV RNA ALEJANDRA+probe Ql (Resp) Not detected Not Detected [facility] FLUBV RNA ALEJANDRA+probe Ql (Resp) Not detected Not Detected [facility] Interpretation and review of laboratory results Normal [facility] SARS-CoV-2 (COVID-19) RNA ALEJANDRA+probe Ql (Resp) Not detected Not Detected [facility] This assay has recei piotr FDA Emergency Use Authorization (EUA) and is only authorized for the duration of time that circumstances exist to justify the authorization of the emergency use of in vitro diagnostic tests for the detection of SARS-CoV-2 virus and/or diagnosis of COVID-19 infection under section 564(b)(1) of the Act, 21 U.S.C. 360bbb-3(b)(1). Testing for SARS-CoV-2 is only recommended for patients who meet current clinical and/or epidemiological criteria as defined by federal, state, or local public health directives. This assay is an in vitro diagnostic nucleic acid amplification test for the qualitative detection of SARS-CoV-2, Influenza A, and Influenza B from nasopharyngeal specimens and has been validated for use at [facility]. Negative results do not preclude COVID-19 infections or Influenza A/B infections, and should not be used as the sole basis for diagnosis, treatment, or other management decisions. If Influenza A/B and RSV PCR results are negative, testing for Parainfluenza virus, Adenovirus and Metapneumovirus is routinely performed for [facility] pediatric oncology and intensive care inpatients, and is available on other patients by placing an add-on request. [facility] FLUAV RNA ALEJANDRA+probe Ql (Resp) Not detected Normal Not Detected [facility] Comment on above: Order Comment: This assay has received FDA Emergency Use Authorization (EUA) and is only authorized for the duration of time that circumstances exist to justify the authorization of the emergency use of in vitro diagnostic tests for the detection of SARS-CoV-2 virus and/or diagnosis of COVID-19 infection under section 564(b)(1) of the Act, 21 U.S.C. 360bbb-3(b)(1). Testing for SARS-CoV-2 is only recommended for patients who meet current clinical and/or epidemiological criteria as defined by federal, state, or local public health directives. This assay is an in vitro diagnostic nucleic acid amplification test for the qualitative detection of SARS-CoV-2, Influenza A, and Influenza B from nasopharyngeal specimens and has been validated for use at [facility]. Negative results do not preclude COVID-19 infections or Influenza A/B infections, and should not be used as the sole basis for diagnosis, treatment, or other management decisions. If Influenza A/B and RSV PCR results are negative, testing for Parainfluenza virus, Adenovirus and Metapneumovirus is routinely performed for [facility] pediatric oncology and intensive care inpatients, and is available on other patients by placing an add-on request. Performed By: #### 9 5423-0 ####PRICILA HERNANDEZ ([id number])[facility] ([facility])[address] [place] [address] FLUBV RNA ALEJANDRA+probe Ql (Resp) Not detected Normal Not Detected [facility] Comment on above: Order Comment: This assay has received FDA Emergency Use Authorization (EUA) and is only authorized for the duration of time that circumstances exist to justify the authorization of the emergency use of in vitro diagnostic tests for the detection of SARS-CoV-2 virus and/or diagnosis of COVID-19 infection under section 564(b)(1) of the Act, 21 U.S.C. 360bbb-3(b)(1). Testing for SARS-CoV-2 is only recommended for patients who meet current clinical and/or epidemiological criteria as defined by federal, state, or local public health directives. This assay is an in vitro diagnostic nucleic acid amplification test for the qualitative detection of SARS-CoV-2, Influenza A, and Influenza B from nasopharyngeal specimens and has been validated for use at [facility]. Negative results do not preclude COVID-19 infections or Influenza A/B infections, and should not be used as the sole basis for diagnosis, treatment, or other management decisions. If Influenza A/B and RSV PCR results are negative, testing for Parainfluenza virus, Adenovirus and Metapneumovirus is routinely performed for [facility] pediatric oncology and intensive care inpatients, and is available on other patients by placing an add-on request. Performed By: #### 9 5423-0 ####PRICILA HERNANDEZ ([id number])[facility] ([facility])[address] [place], [place] [id number] SARS-CoV-2 (COVID-19) RNA ALEJANDRA+probe Ql (Resp) Not detected Normal Not Detected [facility] Comment on above: Order Comment: This assay has received FDA Emergency Use Authorization (EUA) and is only authorized for the duration of time that circumstances exist to justify the authorization of the emergency use of in vitro diagnostic tests for the detection of SARS-CoV-2 virus and/or diagnosis of COVID-19 infection under section 564(b)(1) of the Act, 21 U.S.C. 360bbb-3(b)(1). Testing for SARS-CoV-2 is only recommended for patients who meet current clinical and/or epidemiological criteria as defined by federal, state, or local public health directives. This assay is an in vitro diagnostic nucleic acid amplification test for the qualitative detection of SARS-CoV-2, Influenza A, and Influenza B from nasopharyngeal specimens and has been validated for use at [facility]. Negative results do not preclude COVID-19 infections or Influenza A/B infections, and should not be used as the sole basis for diagnosis, treatment, or other management decisions. If Influenza A/B and RSV PCR results are negative, testing for Parainfluenza virus, Adenovirus and Metapneumovirus is routinely performed for [facility] pediatric oncology and intensive care inpatients, and is available on other patients by placing an add-on request. Performed By: #### 9 5423-0 ####PRICILA HERNANDEZ ([id number])[facility] ([facility])[address] [place] [address] No Panel Informationon 09-07 [facility] TSH WITH REFLEX TO FREE T4 I F ABNORMALon 09-07-2023 TSH Qn 1.08 m[IU]/L Normal 0.44-3.98 [facility] Comment on above: Order Comment: TSH t esting is performed using different testing methodology at [facility] than at [facility]. Direct result comparisons should only be made within the same method. Performed By: #### T HYDS ####PRICILA HERNANDEZ ([id number])[facility] ([facility])[address] [place] [address] TSH with reflex to Free T4 i f abnormalon 09-07-2023 Interpretation and review of laboratory results Normal [facility] TSH Qn 1.08 m[IU]/L [facility] TSH testing is perfo rmed using different testing methodology at [facility] than at other [facility]. Direct result comparisons should only be made within the same method. [facility] XR CHEST 1 VIEWon 09-07-2023 XR CHEST 1 VIEW Interpreted By: Shola Almazan, STUDY: XR CHEST 1 VIEW; 09/07/2023 4:07 pm INDICATION: Signs/Symptoms:shortness of breath, concern for aspiration COMPARISON: Radiographs 05/27/2023 ACCESSION NUMBER(S): [id number] ORDERING CLINICIAN: YASMIN ARTEAGA TECHNIQUE: Single frontal view of the chest performed. FINDINGS: LINES AND DEVICES: None. LUNGS: No focal consolidation, pulmonary edema, pleural effusion or pneumothorax. CARDIOMEDIASTINAL SILHOUETTE: The cardiomediastinal silhouette is within normal limits. IMPRESSION: No acute cardiopulmonary process. MACRO None Signed by: Shola Almazan 09/07/2023 4:31 PM Dictation workstation: [id number] [facility] XR Chest Single viewon 09-07 No acute cardiopulmo nary process. MACRO None Signed by: Shola Almazan 09/07/2023 4:31 PM Dictation workstation: [id number] MMODAL Interpreted By: Shola Almazan, STUDY: XR CHEST 1 VIEW; 09/07/2023 4:07 pm INDICATION: Signs/Symptoms:shortness of breath, concern for aspiration COMPARISON: Radiographs 05/27/2023 ACCESSION NUMBER(S): [id number] ORDERING CLINICIAN: YASMIN ARTEAGA TECHNIQUE: Single frontal view of the chest performed. FINDINGS: LINES AND DEVICES: None. LUNGS: No focal consolidation, pulmonary edema, pleural effusion or pneumothorax. CARDIOMEDIASTINAL SILHOUETTE: The cardiomediastinal silhouette is within normal limits. [facility] MMODAL Shola Almazan, DO - 09/07/2023 Interpreted By: Shola Almazan, STUDY: XR CHEST 1 VIEW; 09/07/2023 4:07 pm INDICATION: Signs/Symptoms:shortness of breath, concern for aspiration COMPARISON: Radiographs 05/27/2023 ACCESSION NUMBER(S): [id number] ORDERING CLINICIAN: YASMIN ARTEAGA TECHNIQUE: Single frontal view of the chest performed. FINDINGS: LINES AND DEVICES: None. LUNGS: No focal consolidation, pulmonary edema, pleural effusion or pneumothorax. CARDIOMEDIASTINAL SILHOUETTE: The cardiomediastinal silhouette is within normal limits. IMPRESSION: No acute cardiopulmonary process. MACRO None Signed by: Shola Almazan 09/07/2023 4:31 PM Dictation workstation: [id number] [facility] Work Phone: Radiology Study observation (narrative) [facility] Work Phone: XR Chest Single viewOrdered By: Shola Almazan on 09-07-2023 [facility] Work Phone: Basic metabolic 2000 panelon 08-05-2023 Anion gap [Moles/Vol] 10 mmol/L 10 - 20 mmol/L [facility] Calcium [Mass/Vol] 7.9 mg/dL Low 8.4 - 10. 2 mg/dL [facility] Chloride [Moles/Vol] 103 mmol/L 98 - 108 mmol/L [facility] Creatinine [Mass/Vol] 0.78 mg/dL 0.40 - 1.10 mg/dL [facility] GFR/1.73 sq M.predicted CKD-EPI (S/P/Bld) [Vol rate/Area] 99 - PINF [facility] Comment on above: Estimated GFR was ca lculated using the 2020 CKD-EPI creatinine equation. Glucose [Mass/Vol] 98 mg/dL 65 - 99 mg/dL [facility] HCO3 [Moles/Vol] 30 mmol/L 21 - 32 mmol/L [facility] Interpretation and review of laboratory results Abnormal [facility] Potassium [Moles/Vol] 3.4 mmol/L Low 3.5 - 5.1 mmol/L [facility] Sodium [Moles/Vol] 140 mmol/L 135 - 145 mmol/L [facility] Urea nitrogen [Mass/Vol] 7 mg/dL Low 8 - 25 mg/dL [facility] Urea nitrogen/Creatinine [Mass ratio] 9.0 mg/mg Low 10.0 - 20.0 [facility] has implemented the eGFR calculation approach that does not have a coefficient for race that conforms to the NKF-ASN Task Force Recommendations. [facility] CBC panel Auto (Bld)on 08-05 Erythrocyte distribution width (RBC) [Entitic vol] 14.8 % 11.6 - 14.8 % [facility] Hematocrit (Bld) [Volume fraction] 33.8 % Low 36.0 - 46.0 % [facility] Hemoglobin (Bld) [Mass/Vol] 10.9 g/dL Low 12.0 - 16.0 g/dL [facility] Interpretation and review of laboratory results Abnormal [facility] MCH (RBC) [Entitic mass] 27.1 pg 26.0 - 34.0 pg [facility] MCHC (RBC) [Mass/Vol] 32.2 g/dL 31.0 - 37.0 g/dL [facility] MCV (RBC) [Entitic vol] 84.1 fL 80.0 - 100.0 fL [facility] Nucleated RBC (Bld) [#/Vol] 0.00 10*3/uL [facility] Nucleated RBC/100 WBC (Bld) [Ratio] 0.0 % [facility] Platelet mean volume (Bld) [Entitic vol] 8.9 fL Low 9.4 - 12.4 fL [facility] Platelets (Bld) [#/Vol] 316 10*3/uL [facility] RBC (Bld) [#/Vol] 4.02 10*6/uL [facility] WBC (Bld) [#/Vol] 12.92 10*3/uL High [facility] Calcium, IonizedOrdered By: Nancy Leonard on 08-05-2023 Calcium.ionized [Mass/Vol] 4.1 mg/dL Low 4.5 - 5.3 mg/dL [facility] Calcium.ionized [Mass/Vol]Or dered By: Nancy Leonard on 08-05-2023 Interpretation and review of laboratory results Abnormal [facility] HCG ( test) Ql (U)o n 08-04-2023 Beta HCG ( test) Ql (U) Dilute urine specimens, as indicated by a low specific gravity (<1.010) may not contain outbound call center representative levels of hCG. If is still suspected, a serum test or repeat urine test using a first morning urine specimen should be considered. [facility] Interpretation and review of laboratory results Normal [facility] POC , Urineon 08-04 HCG ( test) Ql (U) Negative Negative [facility] Cortisol 1 Hr post dose dominick icotropin [Mass/Vol]on 07-14-2023 Interpretation and review of laboratory results Normal [facility] Interpretation and review of laboratory results Normal [facility] Cortisol pre dose corticotro pin [Mass/Vol]on 07-14-2023 Interpretation and review of laboratory results Normal [facility] Laboratory - Chemistry and C hemistry - challengeon 07-14-2023 Cortisol 1 Hr post dose corticotropin [Mass/Vol] 21.2 [facility] Cortisol 1 Hr post dose corticotropin [Mass/Vol] 17.9 [facility] Cortisol pre dose corticotropin [Mass/Vol] 10.6 [facility] CBC W Auto Differential pane l (Bld)on 05-27-2023 Basophils (Bld) [#/Vol] 0.06 x10*3/uL Normal 0.00-0.10 [facility] Comment on above: Performed By: #### 5 7021-8 #### PRICILA HERNANDEZ ([id number]) [facility] ([facility]) [address] [place] [address] 38155 Basophils/100 WBC (Bld) 0.8 % Normal 0.0-2.0 [facility] Comment on above: Performed By: #### 5 7021-8 #### PRICILA HERNANDEZ ([id number]) [facility] ([facility]) [address] [place] [address] 47641 Eosinophils (Bld) [#/Vol] 0.21 x10*3/uL Normal 0.00-0.70 [facility] Comment on above: Performed By: #### 5 7021-8 #### PRICILA HERNANDEZ ([id number]) [facility] ([facility]) [address] [place] [address] 29923 Eosinophils/100 WBC (Bld) 2.8 % Normal 0.0-6.0 [facility] Comment on above: Performed By: #### 5 7021-8 #### PRICILA HERNANDEZ ([id number]) [facility] ([facility]) [address] [place] [address] 37653 Erythrocyte distribution width (RBC) [Ratio] 14.9 % High 11.5-14.5 [facility] Comment on above: Performed By: #### 5 7021-8 #### PRICILA HERNANDEZ ([id number]) [facility] ([facility]) [address] [place] [address] 07925 Hematocrit (Bld) [Volume fraction] 40.1 % Normal 36.0-46.0 [facility] Comment on above: Performed By: #### 5 7021-8 #### PRICILA HERNANDEZ ([id number]) [facility] ([facility]) [address] [place] [address] 21855 Hemoglobin (Bld) [Mass/Vol] 13.4 g/dL Normal 12.0-16.0 [facility] Comment on above: Performed By: #### 5 7021-8 #### PRICILA HERNANDEZ ([id number]) [facility] ([facility]) [address] [place] [address] 59755 Immature granulocytes (Bld) [#/Vol] 0.01 x10*3/uL Normal 0.00-0.70 [facility] Comment on above: Performed By: #### 5 7021-8 #### PRICILA HERNANDEZ ([id number]) [facility] ([facility]) [address] [place] [address] 45586 Immature granulocytes/100 WBC (Bld) 0.1 % Normal 0.0-0.9 [facility] Comment on above: Result Comment: Jennifer ture Granulocyte Count (IG) includes promyelocytes, myelocytes and metamyelocytes but does not include bands. Percent differential counts (%) should be interpreted in the context of the absolute cell counts (cells/UL). Performed By: #### 5 7021-8 #### PRICILA HERNANDEZ ([id number]) [facility] ([facility]) [address] [place] [address] 79720 Lymphocytes (Bld) [#/Vol] 2.66 x10*3/uL Normal 1.20-4.80 [facility] Comment on above: Performed By: #### 5 7021-8 #### PRICILA HERNANDEZ ([id number]) [facility] ([facility]) [address] [place] [address] 40146 Lymphocytes/100 WBC (Bld) 35.2 % Normal 13.0-44.0 [facility] Comment on above: Performed By: #### 5 7021-8 #### PRICILA HERNANDEZ ([id number]) [facility] ([facility]) [address] [place] [address] 37625 MCH (RBC) [Entitic mass] 27.1 pg Normal 26.0-34.0 [facility] Comment on above: Performed By: #### 5 7021-8 #### PRICILA HERNANDEZ ([id number]) [facility] ([facility]) [address] [place] [address] 50186 MCHC (RBC) [Mass/Vol] 33.4 g/dL Normal 32.0-36.0 [facility] Comment on above: Performed By: #### 5 7021-8 #### PRICILA HERNANDEZ ([id number]) [facility] ([facility]) [address] [place] [address] 52161 MCV (RBC) [Entitic vol] 81 fL Normal 80-100 [facility] Comment on above: Performed By: #### 5 7021-8 #### PRICILA HERNANDEZ ([id number]) [facility] ([facility]) [address] [place] [address] 00292 Monocytes (Bld) [#/Vol] 0.67 x10*3/uL Normal 0.10-1.00 [facility] Comment on above: Performed By: #### 5 7021-8 #### PRICILA HERNANDEZ ([id number]) [facility] ([facility]) [address] [place] [address] 24626 Monocytes/100 WBC (Bld) 8.9 % Normal 2.0-10.0 [facility] Comment on above: Performed By: #### 5 7021-8 #### PRICILA HERNANDEZ ([id number]) [facility] ([facility]) [address] [place] [address] 43446 Neutrophils (Bld) [#/Vol] 3.95 x10*3/uL Normal 1.20-7.70 [facility] Comment on above: Result Comment: Perc ent differential counts (%) should be interpreted in the context of the absolute cell counts (cells/uL). Performed By: #### 5 7021-8 #### PRICILA HERNANDEZ ([id number]) [facility] ([facility]) [address] [place] [address] 21275 Neutrophils/100 WBC (Bld) 52.2 % Normal 40.0-80.0 [facility] Comment on above: Performed By: #### 5 7021-8 #### PRICILA HERNANDEZ ([id number]) [facility] ([facility]) [address] [place] [address] 45217 Nucleated RBC/100 WBC (Bld) [Ratio] 0.0 /100 WBCs Normal 0.0-0.0 [facility] Comment on above: Performed By: #### 5 7021-8 #### PRICILA HERNANDEZ ([id number]) [facility] ([facility]) [address] [place] [address] 46173 Platelet mean volume (Bld) [Entitic vol] 10.4 fL Normal 7.5-11.5 [facility] Comment on above: Performed By: #### 5 7021-8 #### PRICILA HERNANDEZ ([id number]) [facility] ([facility]) [address] [place] [address] 77525 Platelets (Bld) [#/Vol] 391 x10*3/uL Normal 150-450 [facility] Comment on above: Performed By: #### 5 7021-8 #### PRICILA HERNANDEZ ([id number]) [facility] ([facility]) [address] [place] [address] 00678 RBC (Bld) [#/Vol] 4.94 x10*6/uL Normal 4.00-5.20 [facility] Comment on above: Performed By: #### 5 7021-8 #### PRICILA HERNANDEZ ([id number]) [facility] ([facility]) [address] [place] [address] 28693 WBC (Bld) [#/Vol] 7.6 x10*3/uL Normal 4.4-11.3 [facility] Comment on above: Performed By: #### 5 7021-8 #### PRICILA HERNANDEZ ([id number]) [facility] ([facility]) [address] [place] [address] ANGIO CHEST FOR PULMONARY EMBOLISMon 05-27-2023 CT ANGIO CHEST FOR PULMONARY EMBOLISM Interpreted By: Hair Moran, STUDY: CT ANGIO CHEST FOR PULMONARY EMBOLISM; 05/27/2023 5:53 am INDICATION: Signs/Symptoms:PE. COMPARISON: Chest radiograph 05/27/2023 ACCESSION NUMBER(S): [id number] ORDERING CLINICIAN: NABEEL CARABALLO TECHNIQUE: Axial CTA images of the chest after intravenous administration of 90 mL Omnip[address] angiographic technique. Coronal and sagittal images are reconstructed. MIP images were created and reviewed. FINDINGS: CHEST WALL AND LOWER NECK: Asymmetric enlargement of the right thyroid lobe with questionable hypodense nodules, with evaluation limited due to streak artifact from dense contrast in right upper extremity/neck vessels. ABDOMEN: No acute abnormality of the partially visualized abdomen. VASCULAR: AORTA: No aortic aneurysm or dissection. No significant atherosclerotic disease. PULMONARY ARTERY: Normal caliber. No pulmonary embolus to the segmental level. CHEST: HEART: Normal size. No pericardial effusion. MEDIASTINUM AND EILEEN: No pathologically enlarged thoracic lymph nodes. LUNG, PLEURA, LARGE AIRWAYS: Mild dependent atelectasis. BONES: No acute osseous abnormality. IMPRESSION: No acute pulmonary embolus to the segmental level. Mild dependent atelectasis. Asymmetric enlargement of the right thyroid lobe with questionable hypodense nodules, with evaluation limited due to streak artifact from dense contrast in the right upper extremity/neck vessels. Recommend nonemergent targeted ultrasound to further characterize. MACRO: Critical Finding: See findings. Notification was initiated on 05/27/2023 at 6:16 am by Hair Moran. (-YCF-) Instructions: Signed by: Hair Moran 05/27/2023 6:17 AM Dictation workstation: [id number] Normal [facility] Comprehensive metabolic 2000 panelon 05-27-2023 Albumin BCP dye [Mass/Vol] 4.5 g/dL Normal 3.4-5.0 [facility] Comment on above: Performed By: #### 2 4323-8 #### PRICILA HERNANDEZ ([id number]) [facility] ([facility]) [address] [place] [address] 91174 ALP [Catalytic activity/Vol] 45 U/L Normal 33-110 [facility] Comment on above: Performed By: #### 2 4323-8 #### MCNULTY MARY ([id number]) [facility] ([facility]) [address] [place] [address] 24912 ALT With P-5'-P [Catalytic activity/Vol] 7 U/L Normal 7-45 [facility] Comment on above: Result Comment: Mey ents treated with Sulfasalazine may generate falsely decreased results for ALT. Performed By: #### 2 4323-8 #### PRICILA HERNANDEZ ([id number]) [facility] ([facility]) [address] [place] [address] Anion gap [Moles/Vol] 12 mmol/L Normal 10-20 [facility] Comment on above: Performed By: #### 2 4323-8 #### PRICILA HERNANDEZ ([id number]) [facility] ([facility]) [address] [place] [address] AST With P-5'-P [Catalytic activity/Vol] 11 U/L Normal 9-39 [facility] Comment on above: Performed By: #### 2 432-8 #### PRICILA HERNANDEZ ([id number]) [facility] ([facility]) [address] [place] [address] Bilirubin [Mass/Vol] 0.7 mg/dL Normal 0.0-1.2 [facility] Comment on above: Performed By: #### 2 432-8 #### PRICILA HERNANDEZ ([id number]) [facility] ([facility]) [address] [place] [address] Calcium [Mass/Vol] 9.4 mg/dL Normal 8.6-10.3 [facility] Comment on above: Performed By: #### 2 4323-8 #### PRICILA HERNANDEZ ([id number]) [facility] ([facility]) [address] [place] [address] Chloride [Moles/Vol] 100 mmol/L Normal 98-107 [facility] Comment on above: Performed By: #### 2 4323-8 #### PRICILA HERNANDEZ ([id number]) [facility] ([facility]) [address] [place] [address] CO2 [Moles/Vol] 28 mmol/L Normal 21-32 [facility] Comment on above: Performed By: #### 2 4323-8 #### PRICILA HERNANDEZ ([id number]) [facility] ([facility]) [address] [place] [address] 81838 Creatinine [Mass/Vol] 0.72 mg/dL Normal 0.50-1.05 [facility] Comment on above: Performed By: #### 2 432-8 #### PRICILA HERNANDEZ ([id number]) [facility] ([facility]) [address] [place] [address] 40291 GFR/1.73 sq M.predicted MDRD (S/P/Bld) [Vol rate/Area] mL/min/{1.73_m2} Normal >60 [facility] Comment on above: Result Comment: Calc ulations of estimated GFR are performed using the 2020 CKD-EPI Study Refit equation without the race variable for the IDMS-Traceable creatinine methods. https://jasn.asnjournals.org/content//ASN.85910546 88 Performed By: #### 2 432-8 #### PRICILA HERNANDEZ ([id number]) [facility] ([facility]) [address] [place] [address] 78628 Glucose [Mass/Vol] 94 mg/dL Normal 74-99 [facility] Comment on above: Performed By: #### 2 432-8 #### PRICILA HERNANDEZ ([id number]) [facility] ([facility]) [address] [place] [address] 39651 Potassium [Moles/Vol] 2.7 mmol/L Critically low 3.5-5.3 [facility] Comment on above: Performed By: #### 2 4323-8 #### PRICILA HERNANDEZ ([id number]) [facility] ([facility]) [address] [place] [address] 75733 Protein [Mass/Vol] 7.2 g/dL Normal 6.4-8.2 [facility] Comment on above: Performed By: #### 2 4323-8 #### PRICILA HERNANDEZ ([id number]) [facility] ([facility]) [address] [place] [address] 38886 Sodium [Moles/Vol] 137 mmol/L Normal 136-145 [facility] Comment on above: Performed By: #### 2 4323-8 #### PRICILA HERNANDEZ ([id number]) [facility] ([facility]) [address] [place] [address] 94830 Urea nitrogen [Mass/Vol] 4 mg/dL Low 6-23 [facility] Comment on above: Performed By: #### 2 4323-8 #### PRICILA HERNANDEZ ([id number]) [facility] ([facility]) [address] [place] [address] 62059 ESR Westergren method (Bld) [Velocity]on 05-27-2023 ESR (Bld) [Velocity] 13 mm/h Normal 0-20 [facility] Comment on above: Performed By: #### 4 537-7 ####PRICILA HERNANDEZ ([id number])[facility] ([facility])[address] [place] [address] 81236 Fibrin D-dimer FEUon 023 Fibrin D-dimer FEU (PPP) [Mass/Vol] 551 ng/mL FEU High <=500 [facility] Comment on above: Order Comment: The D -Dimer assay is reported in ng/mL Fibrinogen Equivalent Units (FEU). The results of this assay should NOT be used for the exclusion of Deep Vein Thrombosis and/or Pulmonary Embolism. Performed By: #### 4 8065-7 #### PRICILA HERNANDEZ ([id number]) [facility] ([facility]) [address] [place] [address] 00477 Thyrotropinon 05-27-2023 TSH Qn 1.17 m[IU]/L Normal 0.44-3.98 [facility] Comment on above: Order Comment: TSH t esting is performed using different testing methodology at [facility] than at other [facility]. Direct result comparisons should only be made within the same method. Performed By: #### 3 016-3 ####PRICILA HERNANDEZ ([id number])[facility] ([facility])[address] [place] [address] 72253 Triacylglycerol lipaseon Lipase [Catalytic activity/Vol] 9 U/L Normal 9-82 [facility] Comment on above: Order Comment: Venip uncture immediately after or during the administration of Metamizole may lead to falsely low results. Testing should be performed immediately prior to Metamizole dosing. Performed By: #### 3 040-3 #### PRICILA HERNANDEZ ([id number]) [facility] ([facility]) [address] [place] [address] Troponin I.cardiac panelon 1 Tropinin I.cardiac panel High sensitivity method <3 Normal 0-13 [facility] Comment on above: Order Comment: Less than 99th percentile of normal range cutoff- Female and children under 18 years old <14 ng/L; Male <21 ng/L: Negative Repeat testing should be performed if clinically indicated. Female and children under 18 years old 14-50 ng/L; Male 21-50 ng/L: Consistent with possible cardiac damage and possible increased clinical risk. Serial measurements may help to assess extent of myocardial damage. >50 ng/L: Consistent with cardiac damage, increased clinical risk and myocardial infarction. Serial measurements may help assess extent of myocardial damage. NOTE: Children less than 1 year old may have higher baseline troponin levels and results should be interpreted in conjunction with the overall clinical context. NOTE: Troponin I testing is performed using a different testing methodology at [facility] than at other legacy [facility]. Direct result comparisons should only be made within the same method. Performed By: #### 8 9577-1 #### PRICILA HERNANDEZ ([id number]) [facility] ([facility]) [address] [place], [place] [id number] Urinalysis complete W Reflex Culture panel (U)on 05-27-2023 Appearance (U) Clear Normal Clear [facility] Comment on above: Performed By: #### 5 8077-9 #### PRICILA HERNANDEZ ([id number]) [facility] ([facility]) [address] [place] [address] Bacteria Auto (Urine sed) [#/Area] 1+ /HPF Abnormal NONE SEEN [facility] Comment on above: Performed By: #### 5 8077-9 #### PRICILA HERNANDEZ ([id number]) [facility] ([facility]) [address] [place] [address] Bilirubin (U) [Mass/Vol] Negative Normal NEGATIVE [facility] Comment on above: Performed By: #### 5 8077-9 #### PRICILA HERNANDEZ ([id number]) [facility] ([facility]) [address] [place] [address] Color (U) Yellow Normal Straw, Yellow [facility] Comment on above: Performed By: #### 5 8077-9 #### PRICILA HERNANDEZ ([id number]) [facility] ([facility]) [address] [place] [address] Epithelial cells.squamous Auto (Urine sed) [#/Area] 1-9 (SPARSE) Normal Reference range not established. [facility] Comment on above: Performed By: #### 5 8077-9 #### PRICILA HERNANDEZ ([id number]) [facility] ([facility]) [address] [place] [address] Glucose Auto test strip (U) [Mass/Vol] Negative Normal NEGATIVE [facility] Comment on above: Performed By: #### 5 8077-9 #### PRICILA HERNANDEZ ([id number]) [facility] ([facility]) [address] [place] [address] Ketones (U) [Mass/Vol] Negative Normal NEGATIVE [facility] Comment on above: Performed By: #### 5 8077-9 #### PRICILA HERNANDEZ ([id number]) [facility] ([facility]) [address] [place] [address] Leukocyte esterase Auto test strip Ql (U) Negative Normal NEGATIVE [facility] Comment on above: Performed By: #### 5 8077-9 #### PRICILA HERNANDEZ ([id number]) [facility] ([facility]) [address] [place] [address] Mucus Auto (Urine sed) [#/Area] 1+ /LPF Normal Reference range not established. [facility] Comment on above: Performed By: #### 5 8077-9 #### PRICILA HERNANDEZ ([id number]) [facility] ([facility]) [address] [place] [address] Nitrite Auto test strip Ql (U) Negative Normal NEGATIVE [facility] Comment on above: Performed By: #### 5 8077-9 #### PRICILA HERNANDEZ ([id number]) [facility] ([facility]) [address] [place] [address] pH (U) 6.0 [pH] Normal 5.0, 5.5, 6.0, 6.5, 7.0, 7.5, 8.0 [facility] Comment on above: Performed By: #### 5 8077-9 #### PRICILA HERNANDEZ ([id number]) [facility] ([facility]) [address] [place] [address] Protein (U) [Mass/Vol] Negative Normal NEGATIVE [facility] Comment on above: Performed By: #### 5 8077-9 #### PRCIILA HERNANDEZ ([id number]) [facility] ([facility]) [address] [place] [address] RBC (U) [#/Vol] LARGE (3+) Abnormal NEGATIVE [facility] Comment on above: Performed By: #### 5 8077-9 #### PRICILA HERNANDEZ ([id number]) [facility] ([facility]) [address] [place] [address] RBC Auto (Urine sed) [#/Area] 6-10 Abnormal NONE, 1-2, 3-5 [facility] Comment on above: Performed By: #### 5 8077-9 #### PRICILA HERNANDEZ ([id number]) [facility] ([facility]) [address] [place] [address] Specific gravity (U) [Rel density] 1.008 Normal 1.005-1.035 [facility] Comment on above: Performed By: #### 5 8077-9 #### PRICILA HERNANDEZ ([id number]) [facility] ([facility]) [address] [place] [address] Urobilinogen (U) [Mass/Vol] mg/dL Normal <2.0 [facility] Comment on above: Performed By: #### 5 8077-9 #### MCNULTY MARY ([id number]) [facility] ([facility]) [address] [place] [address] WBC Auto (Urine sed) [#/Area] 1-5 Normal 1-5, NONE [facility] Comment on above: Performed By: #### 5 8077-9 #### MNCULTY MARY ([id number]) [facility] ([facility]) [facility] [place] [address] XR CHEST 1 VIEWon 05-27-2023 XR CHEST 1 VIEW Interpreted By: Corby Johnson, STUDY: XR CHEST 1 VIEW; 05/27/2023 4:34 am INDICATION: Signs/Symptoms:pain. COMPARISON: None. ACCESSION NUMBER(S): [id number] ORDERING CLINICIAN: NABEEL CARABALLO FINDINGS: AP radiograph of the chest was provided. CARDIOMEDIASTINAL SILHOUETTE: Cardiomediastinal silhouette is normal in size and configuration. LUNGS: Mild left basilar atelectasis is present without focal consolidation, pleural effusion, or pneumothorax. ABDOMEN: No remarkable upper abdominal findings. BONES: No acute osseous changes. IMPRESSION: 1. Mild left basilar atelectasis without evidence of focal consolidation, pleural effusion, or pneumothorax. MACRO: None Signed by: Corby Johnson 05/27/2023 4:52 AM Dictation workstation: [id number] [facility] XR ELBOW LEFT 1-2 VIEWSon XR ELBOW LEFT 1-2 VIEWS Interpreted By: Corey Hirsch, STUDY: XR ELBOW LEFT 1-2 VIEWS; ; 05/23/2023 2:10 pm INDICATION: Signs/Symptoms:fall/injury. COMPARISON: None. ACCESSION NUMBER(S): [id number] ORDERING CLINICIAN: TOMMY CRUZ FINDINGS: No evidence for acute fracture or dislocation. No bone lesions or cortical erosions. No radiopaque foreign bodies. No joint effusion. IMPRESSION: No evidence for acute fracture, dislocation or joint effusion. MACRO: None Signed by: Corey Hirsch 05/23/2023 2:21 PM Dictation workstation: [id number] [facility] XR HUMERUS LEFTon 05-23-2023 XR HUMERUS LEFT Interpreted By: Corey Leslie, STUDY: XR HUMERUS LEFT; ; 05/23/2023 2:11 pm INDICATION: Signs/Symptoms:fall/injury. COMPARISON: None. ACCESSION NUMBER(S): [id number] ORDERING CLINICIAN: TOMMY CRUZ FINDINGS: There is no evidence for acute fracture or dislocation. No bone lesions or cortical erosions. No radiopaque foreign body. IMPRESSION: No evidence for acute fracture, dislocation or radiopaque foreign body. Signed by: Corey Hirsch 05/23/2023 2:20 PM Dictation workstation: [id number] [facility] BETA HCG, QUAL, BLOODon HCG ( test) Ql Negative NEGATIVE [facility] CBC, EDIF, PLATELETon 2022 ABSOLUTE BASOPHIL COUNT 0.1 10*3/uL 0.0 - 0.2 10*3/uL [facility] Basophils/100 WBC (Bld) 0.8 % 0.0 - 2.0 % [facility] Differential cell count method Nom (Bld) AUTO DIFF % [facility] Eosinophils (Bld) [#/Vol] 0.2 10*3/uL 0.0 - 0.7 10*3/uL [facility] Eosinophils/100 WBC (Bld) 1.5 % 0.0 - 11.0 % [facility] Erythrocyte distribution width (RBC) [Ratio] 15.3 % High 11.5 - 14.5 % [facility] Hematocrit (Bld) [Volume fraction] 40.6 % 36.0 - 48.0 % [facility] Hemoglobin (Bld) [Mass/Vol] 13.4 g/dL [facility] Interpretation and review of laboratory results Abnormal [facility] Lymphocytes (Bld) [#/Vol] 2.8 10*3/uL 1.2 - 3.4 10*3/uL [facility] Lymphocytes/100 WBC (Bld) 25.2 % 20.0 - 55.0 % [facility] MCH (RBC) [Entitic mass] 26.4 pg 26.0 - 35.0 PG [facility] MCHC (RBC) [Mass/Vol] 32.9 g/dL [facility] MCV (RBC) [Entitic vol] 80.2 fL [facility] Monocytes (Bld) [#/Vol] 1.0 10*3/uL High 0.0 - 0.7 10*3/uL [facility] Monocytes/100 WBC (Bld) 9.1 % 0.0 - 10.0 % [facility] Neutrophils (Bld) [#/Vol] 7.1 10*3/uL High 1.4 - 6.5 10*3/uL [facility] Neutrophils/100 WBC (Bld) 63.4 % 37.0 - 75.0 % [facility] Platelet mean volume (Bld) [Entitic vol] 8.2 fL [facility] Platelets (Bld) [#/Vol] 325 10*3/uL 130 - 400 10*3/uL [facility] RBC (Bld) [#/Vol] 5.07 10*6/uL 4.0 - 5.4 10*6/uL [facility] WBC (Bld) [#/Vol] 11.2 10*3/uL High 3.6 - 11.0 10*3/uL [facility] COMPREHENSIVE METABOLIC PANE Erwin 03-07-2023 Albumin [Mass/Vol] 4.6 G/dl 3.5 - 5.0 G/dl [facility] Albumin/Globulin [Mass ratio] 1.6 {ratio} RATIO [facility] ALP [Catalytic activity/Vol] 57 U/L [facility] ALT [Catalytic activity/Vol] 15 U/L [facility] AST [Catalytic activity/Vol] 30 U/L [facility] Bilirubin [Mass/Vol] 0.6 mg/dL [facility] Calcium [Mass/Vol] 9.2 mg/dL [facility] Chloride [Moles/Vol] 96 mmol/L Low [facility] Comment on above: Please note: Triglyc eride levels of 600mg/dL or higher may positively bias chloride results by approximately 2.1 mmol CO2 [Moles/Vol] 33 mmol/L High [facility] Creatinine [Mass/Vol] 0.80 mg/dL [facility] GFR COMMENT Average GFR for 30-3 9 years old = 107. [facility] Comment on above: Chronic Kidney disea se, GFR = <60. Kidney failure, GFR = <15. The GFR estimate is not adjusted for extreme body surface area or acute process, nor has it been validated for women or ethnic groups other than and . GFR/1.73 sq M.predicted among blacks MDRD (S/P/Bld) [Vol rate/Area] 103 mL/min/{1.73_m2} ml/min/1.73s q.m [facility] GFR/1.73 sq M.predicted among non-blacks MDRD (S/P/Bld) [Vol rate/Area] 85 mL/min/{1.73_m2} ml/min/1.73s q.m [facility] Glucose post fast [Mass/Vol] 110 mg/dL High [facility] Comment on above: NORMAL <100 mg/dL PREDIABETES 101-126 mg/dL DIABETES 126 mg/dL or higher Interpretation and review of laboratory results Abnormal [facility] Potassium [Moles/Vol] 2.7 mmol/L Critically low [facility] Comment on above: Result called to laura kimball back by: HALEIGH 03/07/2023 @ 21:00 by HARPER Protein [Mass/Vol] 7.5 g/dL [facility] Sodium [Moles/Vol] 138 mmol/L [facility] Urea nitrogen [Mass/Vol] 3 mg/dL Low [facility] CT Abdomen and Pelvis WO venice ramirezon 03-07-2023 IMPRESSION: Apparent prior cholecystectomy. No acute intra-abdominal or pelvic process is otherwise identified. RADIOLOGY EXAM: CT ABDOMEN/PEL VIS WITHOUT CONTRAST HISTORY: Lower abdominal pain COMPARISON: None. TECHNIQUE: Axial CT imaging was performed through the abdomen and pelvis without intravenous contrast. Multiplanar reformats were performed. Dose reduction techniques were achieved by using automated exposure control and/or adjustment of mA and/or kV according to patient size and/or use of iterative reconstruction technique. FINDINGS: Lung bases: Lung bases are clear. No pleural effusion. GI upper: Unremarkable. Liver: Normal size and contour. Gallbladder: The gallbladder is not visualized, presumably surgically absent. Biliary system: No intra or extrahepatic biliary ductal dilatation. Pancreas: Unremarkable. Spleen: Normal size. Adrenal glands: Normal adrenal glands. Kidneys/ureters: Normal contours. No hydronephrosis or visible mass. No nephrolithiasis. No ureterolithiasis. Vessels: No aneurysm. Retroperitoneum: No lymphadenopathy. Small bowel: No wall thickening or dilatation. Colon: No wall thickening or dilatation. Appendix: Appendix is identified with normal appearance. Peritoneal cavity: No free fluid or pneumoperitoneum. Lower : Unremarkable. Bones: No acute bony abnormality. Soft tissues: No acute finding. Additional findings: None. RADIOLOGY Abran Mcclelland MD - 03/07/2023 EXAM: CT ABDOMEN/PELVIS WITHOUT CONTRAST HISTORY: Lower abdominal pain COMPARISON: None. TECHNIQUE: Axial CT imaging was performed through the abdomen and pelvis without intravenous contrast. Multiplanar reformats were performed. Dose reduction techniques were achieved by using automated exposure control and/or adjustment of mA and/or kV according to patient size and/or use of iterative reconstruction technique. FINDINGS: Lung bases: Lung bases are clear. No pleural effusion. GI upper: Unremarkable. Liver: Normal size and contour. Gallbladder: The gallbladder is not visualized, presumably surgically absent. Biliary system: No intra or extrahepatic biliary ductal dilatation. Pancreas: Unremarkable. Spleen: Normal size. Adrenal glands: Normal adrenal glands. Kidneys/ureters: Normal contours. No hydronephrosis or visible mass. No nephrolithiasis. No ureterolithiasis. Vessels: No aneurysm. Retroperitoneum: No lymphadenopathy. Small bowel: No wall thickening or dilatation. Colon: No wall thickening or dilatation. Appendix: Appendix is identified with normal appearance. Peritoneal cavity: No free fluid or pneumoperitoneum. Lower : Unremarkable. Bones: No acute bony abnormality. Soft tissues: No acute finding. Additional findings: None. IMPRESSION IMPRESSION: Apparent prior cholecystectomy. No acute intra-abdominal or pelvic process is otherwise identified. [facility] Radiology Study observation (narrative) [facility] CT Abdomen and Pelvis WO con trastOrdered By: Abran Mcclelland on 03-07-2023 [employer] Work Phone: HCG ( test) Qlon [facility] LIPASEon 03-07-2023 Lipase [Catalytic activity/Vol] 29 U/L 23 - 300 U/L [facility] MAGNESIUMon 03-07-2023 Magnesium [Mass/Vol] 2.3 mg/dL [facility] No Panel Informationon 03-07 [facility] URINALYSIS, MACROon 03-07-20 23 Bilirubin Ql (U) Negative NEGATIVE [facility] Clarity (U) CLEAR CLEAR [facility] Color (U) YELLOW YELLOW [facility] Glucose Test strip (U) [Mass/Vol] Negative NEGATIVE mg/dl [facility] Hemoglobin Ql (U) Negative NEGATIVE [facility] Ketones (U) [Mass/Vol] Negative NEGATIVE mg/dl [facility] Leukocyte esterase Test strip Ql (U) Negative NEGATIVE [facility] Nitrite Ql (U) Negative NEGATIVE [facility] pH (U) 6.5 [pH] 5.0 - 7.0 [facility] Protein Ql (U) Negative NEGATIVE mg/dl [facility] Specific gravity (U) [Rel density] 1.010 1.010 - 1.025 [facility] Urobilinogen (U) [Mass/Vol] 0.2 mg/dL [facility] Histone Antibody, IgGon Histone Ab, IgG 0.8 Units Normal 0.0-0.9 [facility] Comment on above: Result Comment: INTE RPRETIVE INFORMATION: Histone Ab, IgG 0.9 Units or less ............ Negative 1.0 - 1.5 Units .............. Weak Positive 1.6 - 2.5 Units .............. Moderate Positive 2.6 Units or greater ......... Strong Positive Performed By: [facility] [address] [place] [address] Quality Rep: Lul Colon MD, PhD Performed By: #### 5 [id number] #### [facility] [address] [place] [id number] ANCA Vasculitis Profileon ANCA IFA Pattern Not detected Normal None Detected [facility] Comment on above: Result Comment: INTE RPRETIVE INFORMATION: ANCA IFA Pattern Neutrophil Cytoplasmic Antibodies (C-ANCA = granular cytoplasmic staining, P-ANCA = perinuclear staining) are found in the serum of over 90 percent of patients with certain necrotizing systemic vasculitides, and usually in less than 5 percent of patients with collagen vascular disease or arthritis. Performed By: [place] [address] Quality Rep: Lul Colon MD, PhD Performed By: #### B 3745 ####[facility] [id number] [place] [address] ANCA IFA Titer <1:20 Normal <1:20 [facility] Comment on above: Performed By: #### B 3745 ####[facility] Reference [id number] [place] [address] Myeloperox Abs, IgG 0 AU/mL Normal 0-19 [facility] Comment on above: Result Comment: INTE RPRETIVE INFORMATION: Myeloperoxidase Abs, IgG 19 AU/mL or Less ......... Negative 20-25 AU/mL .............. Equivocal 26 AU/mL or Greater ...... Positive Approximately 90% of patients with a P-ANCA pattern by IFA have antibodies specific for MPO. Performed By: #### B 3745 ####[facility] Reference [address] [address] Serine Protease3, IgG 0 AU/mL Normal 0-19 [facility] Comment on above: Result Comment: INTE RPRETIVE INFORMATION: Serine Proteinase 3, IgG 19 AU/mL or Less ........ Negative 20-25 AU/mL ............. Equivocal 26 AU/mL or Greater ..... Positive Approximately 85% of patients with a C-ANCA pattern by IFA have antibodies specific for PR3. Performed By: #### B 3745 ####[facility] Reference [id number] [place] [address] Cyclic Citrullinated Peptide Ab, IgGon 09-05-2022 Cyclic Citrullinated Peptide Ab, IgG 0.9 U/mL Normal 0.0-7.0 [facility] Comment on above: Result Comment: Reference Range: <7.0 Negative 7.0-10.0 Equivocal >10.0 Positive [facility] [address] [place] [id number] ([phone] ANAon 09-03-2022 MELODY Screen Negative Normal NEGATIVE [facility] Comment on above: Result Comment: NEGA TIVE: <=16 years <1:10 >16 years <1:40 Test done by Indirect fluorescent antibody (HEp-2). Anti DNA Ab (DS)on 3 Anti-DNA (DS) Negative Normal NEGATIVE [facility] C-Reactive Proteinon 023 CRP [Mass/Vol] mg/L Normal 0.0-0.4 [facility] CBC With Platelet and Differ entialon 09-02-2022 Abs Imm Granulocytes 0.03 E9/L Normal [facility] Absolute Basophils 0.08 E9/L Normal 0.00-0.20 [facility] Absolute Eosinophils 0.13 E9/L Normal 0.05-0.50 [facility] Absolute Lymphocytes 1.99 E9/L Normal 1.50-4.00 [facility] Absolute Monocytes 0.54 E9/L Normal 0.10-0.95 [facility] Absolute Neutrophils 7.07 E9/L Normal 1.80-7.30 [facility] Basophils/100 WBC (Bld) 0.8 % Normal 0.0-2.0 [facility] Eosinophils/100 WBC (Bld) 1.3 % Normal 0.0-6.0 [facility] Hematocrit (Bld) [Volume fraction] 40.1 % Normal 34.0-48.0 [facility] Hemoglobin (Bld) [Mass/Vol] 12.6 g/dL Normal 11.5-15.5 [facility] Imm Granulocytes 0.3 % Normal 0.0-5.0 [facility] Lymphocytes/100 WBC (Bld) 20.2 % Normal 20.0-42.0 [facility] MCH (RBC) [Entitic mass] 25.2 pg Low 26.0-35.0 [facility] MCHC 31.4 % Low 32.0-34.5 [facility] MCV (RBC) [Entitic vol] 80.2 fL Normal 80.0-99.9 [facility] Monocytes/100 WBC (Bld) 5.5 % Normal 2.0-12.0 [facility] Neutrophils/100 WBC (Bld) 71.9 % Normal 43.0-80.0 [facility] Platelet Count 446 E9/L Normal 130-450 [facility] Platelet mean volume (Bld) [Entitic vol] 11.1 fL Normal 7.0-12.0 [facility] RBC 5.00 E12/L Normal 3.50-5.50 [facility] RDW 14.3 fL Normal 11.5-15.0 [facility] WBC 9.8 E9/L Normal 4.5-11.5 [facility] Comprehensive Metabolic Pane erwin 09-02-2022 Albumin [Mass/Vol] 4.7 g/dL Normal 3.5-5.2 [facility] ALP [Catalytic activity/Vol] 53 U/L Normal 35-104 [facility] ALT [Catalytic activity/Vol] 6 U/L Normal 0-32 [facility] Anion gap [Moles/Vol] 13 mmol/L Normal 7-16 [facility] AST [Catalytic activity/Vol] 13 U/L Normal 0-31 [facility] Bilirubin [Mass/Vol] 0.6 mg/dL Normal 0.0-1.2 [facility] Calcium [Mass/Vol] 9.3 mg/dL Normal 8.6-10.2 [facility] Chloride [Moles/Vol] 103 mmol/L Normal 98-107 [facility] CO2 [Moles/Vol] 27 mmol/L Normal 22-29 [facility] Creatinine [Mass/Vol] 0.7 mg/dL Normal 0.5-1.0 [facility] GFR Calculated >60 Normal >=60 [facility] Comment on above: Result Comment: Lynnette barrigac calculator link https://www.kidney.org/professionals/kdoqi/gfr_[email or web address] Effective May 04, 2022 These results are not intended for use in patients <18 years of age. eGFR results are calculated without a race factor using the 2020 CKD-EPI equation. Careful clinical correlation is recommended, particularly when comparing to results calculated using previous equations. The CKD-EPI equation is less accurate in patients with extremes of muscle mass, extra-renal metabolism of creatinine, excessive creatinine ingestion, or following therapy that affects renal tubular secretion. Glucose [Mass/Vol] 92 mg/dL Normal 74-99 [facility] Potassium [Moles/Vol] 4.0 mmol/L Normal 3.5-5.0 [facility] Protein [Mass/Vol] 7.5 g/dL Normal 6.4-8.3 [facility] Sodium [Moles/Vol] 143 mmol/L Normal 132-146 [facility] Urea nitrogen [Mass/Vol] 5 mg/dL Low 6-20 [facility] Hgb A1Con 09-02-2022 HbA1c (Bld) [Mass fraction] 4.8 % Normal 4.0-5.6 [facility] Lipid Panelon 09-02-2022 Cholesterol [Mass/Vol] 172 mg/dL Normal 0-199 [facility] Cholesterol in HDL [Mass/Vol] 46 mg/dL Normal >40 [facility] Cholesterol in LDL [Mass/Vol] 105 mg/dL High 0-99 [facility] Triglyceride [Mass/Vol] 107 mg/dL Normal 0-149 [facility] VLDL Cholesterol (Calculated) 21 mg/dL Normal [facility] Rheumatoid Factoron 09-02-19 23 Rheumatoid Factor <10 Normal 0-13 [facility] Sedimentation Rateon 023 Sedimentation Rate 5 mm/Hr Normal 0-20 [facility] TSH w/out Reflexon 3 TSH w/out Reflex 1.130 uIU/mL Normal 0.270-4.200 [facility] CBC With Platelet and Differ entialon 06-24-2022 Abs Imm Granulocytes 0.02 E9/L Normal [facility] Absolute Basophils 0.09 E9/L Normal 0.00-0.20 [facility] Absolute Eosinophils 0.29 E9/L Normal 0.05-0.50 [facility] Absolute Lymphocytes 3.53 E9/L Normal 1.50-4.00 [facility] Absolute Monocytes 0.91 E9/L Normal 0.10-0.95 [facility] Absolute Neutrophils 5.86 E9/L Normal 1.80-7.30 [facility] Basophils/100 WBC (Bld) 0.8 % Normal 0.0-2.0 [facility] Eosinophils/100 WBC (Bld) 2.7 % Normal 0.0-6.0 [facility] Hematocrit (Bld) [Volume fraction] 41.3 % Normal 34.0-48.0 [facility] Hemoglobin (Bld) [Mass/Vol] 13.5 g/dL Normal 11.5-15.5 [facility] Imm Granulocytes 0.2 % Normal 0.0-5.0 [facility] Lymphocytes/100 WBC (Bld) 33.0 % Normal 20.0-42.0 [facility] MCH (RBC) [Entitic mass] 27.4 pg Normal 26.0-35.0 [facility] MCHC 32.7 % Normal 32.0-34.5 [facility] MCV (RBC) [Entitic vol] 83.8 fL Normal 80.0-99.9 [facility] Monocytes/100 WBC (Bld) 8.5 % Normal 2.0-12.0 [facility] Neutrophils/100 WBC (Bld) 54.8 % Normal 43.0-80.0 [facility] Platelet Count 335 E9/L Normal 130-450 [facility] Platelet mean volume (Bld) [Entitic vol] 10.3 fL Normal 7.0-12.0 [facility] RBC 4.93 E12/L Normal 3.50-5.50 [facility] RDW 14.3 fL Normal 11.5-15.0 [facility] WBC 10.7 E9/L Normal 4.5-11.5 [facility] Comprehensive Metabolic Pane erwin 06-24-2022 Albumin [Mass/Vol] 4.3 g/dL Normal 3.5-5.2 [facility] ALP [Catalytic activity/Vol] 59 U/L Normal 35-104 [facility] ALT [Catalytic activity/Vol] 8 U/L Normal 0-32 [facility] Anion gap [Moles/Vol] 13 mmol/L Normal 7-16 [facility] AST [Catalytic activity/Vol] 14 U/L Normal 0-31 [facility] Bilirubin [Mass/Vol] 0.4 mg/dL Normal 0.0-1.2 [facility] Calcium [Mass/Vol] 9.7 mg/dL Normal 8.6-10.2 [facility] Chloride [Moles/Vol] 100 mmol/L Normal 98-107 [facility] CO2 [Moles/Vol] 27 mmol/L Normal 22-29 [facility] Creatinine [Mass/Vol] 0.9 mg/dL Normal 0.5-1.0 [facility] GFR Calculated >60 Normal >=60 [facility] Comment on above: Result Comment: Lynnette atric calculator link https://www.kidney.org/professionals/kdoqi/gfr_calculatorped Effective May 04, 2022 These results are not intended for use in patients <18 years of age. eGFR results are calculated without a race factor using the 2020 CKD-EPI equation. Careful clinical correlation is recommended, particularly when comparing to results calculated using previous equations. The CKD-EPI equation is less accurate in patients with extremes of muscle mass, extra-renal metabolism of creatinine, excessive creatinine ingestion, or following therapy that affects renal tubular secretion. Glucose [Mass/Vol] 75 mg/dL Normal 74-99 [facility] Potassium [Moles/Vol] 3.2 mmol/L Low 3.5-5.0 [facility] Protein [Mass/Vol] 7.0 g/dL Normal 6.4-8.3 [facility] Sodium [Moles/Vol] 140 mmol/L Normal 132-146 [facility] Urea nitrogen [Mass/Vol] 8 mg/dL Normal 6-20 [facility] Prothrombin Timeon 2 INR Coag (PPP) [Relative time] 1.1 {INR} Normal [facility] PT Coag (PPP) [Time] 12.0 s Normal 9.3-12.4 [facility] Urinalysis, reflex to micros copicon 06-24-2022 Bilirubin Ql (U) Negative Normal Negative [facility] Clarity (U) Clear Normal Clear [facility] Color (U) Yellow Normal Straw/Yellow [facility] Glucose Ql (U) Negative Normal Negative [facility] Hemoglobin Ql (U) LARGE Abnormal Negative [facility] Ketones Ql (U) TRACE Abnormal Negative [facility] Leukocyte esterase Test strip Ql (U) SMALL Abnormal Negative [facility] Nitrite Ql (U) Positive Abnormal Negative [facility] pH (U) 6.5 [pH] Normal 5.0-9.0 [facility] Protein Ql (U) 100 mg/dL Abnormal Negative [facility] Specific gravity (U) [Rel density] 1.010 Normal 1.005-1.030 [facility] Urobilinogen Qn (U) 1.0 {Jamie'U}/dL Normal < 2.0 [facility] Urine Microscopicon 06-24-20 22 Epithelial cells LM Ql (Urine sed) RARE Normal [facility] Urine Bacteria RARE Abnormal None Seen [facility] Urine RBC PACKED Normal 0-2 [facility] WBC (U) [#/Vol] 0 /uL Normal 0-5 [facility] HCG QUAL UR B/Oon 05-27-[address] [facility] Quality Check Yes [facility] UA DIP, URINE (POC)on 2021 BILIRUBIN UA (POCT) Negative Negative [facility] CLARITY UA (POCT) Clear [facility] COLOR UA (POCT) Other [facility] GLUCOSE UA (POCT) Negative Negative mg/dL [facility] HEMOGLOBIN/BLOOD UA (POCT) Large Abnormal Negative [facility] KETONE UA (POCT) Negative Negative mg/dL [facility] LEUKOCYTES UA (POCT) Negative Negative [facility] NITRITE UA (POCT) Negative Negative [facility] PH UA (POCT) 6.0 4.5 - 8.[address] [facility] Protein Ql (U) 30 mg/dL Abnormal Negative mg/dL [facility] SPECIFIC GRAVITY UA (POCT) 1.020 1.005 - 1.[address] [facility] UROBILINOGEN UA (POCT) 1.0 E.U./dL Normal E.U./dL [facility] CT BRAIN WO/W IVCONon [address] [facility] No Panel Informationon 12-[address] [facility] COLONOSCOPY DIAGNOSTICon [facility] EGD DIAGNOSTICon 11-10-[address] [facility] XR Chest PA and Lateralon IMPRESSION: No acute radiographic abnormality. Talent Coordinator: PSCB Transcribe Date/Time: Feb 05 2021 12:21P Dictated by : RADHA FORD MD This examination was interpreted and the report reviewed and electronically signed by: RADHA FORD MD on Feb 05 2021 12:26PM [facility] DIVISION OF RADIOLOGY * * *Final Report* * * DATE OF EXAM: Feb 05 2021 12:01PM WOX [id number] - XR CHEST 2V FRONTAL/LAT / PROCEDURE REASON: SOB (shortness of breath) * * * * Physician Interpretation * * * * EXAMINATION: CHEST RADIOGRAPH (2 VIEW FRONTAL & LATERAL) CLINICAL HISTORY: SOB (shortness of breath) MQ: XC2_6 EXAM DATE/TIME: 02/05/2021 12:01 PM COMPARISON: Chest x-ray on 10/11/2017. RESULT: Lines, tubes, and devices: None. Lungs and pleura: Small lung volume due to inadequate inspiration. No consolidation. No lung mass. No pleural effusion. No pneumothorax. Cardiomediastinal silhouette: Normal cardiomediastinal silhouette. Bones and soft tissues: Unremarkable. DIVISION OF RADIOLOGY Provider, [facility] - 02/05/2021 * * *Final Report* * * DATE OF EXAM: Feb 05 2021 12:01PM WOX [id number] - XR CHEST 2V FRONTAL/LAT / PROCEDURE REASON: SOB (shortness of breath) * * * * Physician Interpretation * * * * EXAMINATION: CHEST RADIOGRAPH (2 VIEW FRONTAL & LATERAL) CLINICAL HISTORY: SOB (shortness of breath) MQ: XC2_6 EXAM DATE/TIME: 02/05/2021 12:01 PM COMPARISON: Chest x-ray on 10/11/2017. RESULT: Lines, tubes, and devices: None. Lungs and pleura: Small lung volume due to inadequate inspiration. No consolidation. No lung mass. No pleural effusion. No pneumothorax. Cardiomediastinal silhouette: Normal cardiomediastinal silhouette. Bones and soft tissues: Unremarkable. IMPRESSION IMPRESSION: No acute radiographic abnormality. Talent Coordinator: PSCB Transcribe Date/Time: Feb 05 2021 12:21P Dictated by : RADHA FORD MD This examination was interpreted and the report reviewed and electronically signed by: RADHA FORD MD on Feb 05 2021 12:26PM EST [facility] Radiology Study observation (narrative) [facility] XR Chest PA and LateralOrder ed By: [facility] Provider on 02-05-[address] [facility] FOOT COMPLETE LTon 0 FOOT COMPLETE [address] [address] Patient: DAMARIS DYKES Phone#: : 1985 Age: 34 Gender: F Pt. Type: Out Account: [id number] Location: Ordering: VALERI MCCORD Exam Date: 12/27/2019/16:49 Family Phys: Charge Code: [id number] Physician: [place] Order #: [id number] DLP Dose#: PROCEDURE: X-RAY FOOT LT COMPLETE MIN 3 VIEWS COMPARISON: None. INDICATIONS: Left Heel Pain. FINDINGS: BONES: A 6 millimeter calcaneal spur is present. SOFT TISSUES: Negative. No visible soft tissue swelling. EFFUSION: None visible. OTHER: Negative. CONCLUSION: 1. Calcaneal spur is present. There is no other acute bone abnormality identified. Dictated by: Luna Adrian MD on 12/27/2019 at 17:03 Approved by: Luna Adrian MD on 12/27/2019 at 17:03 [facility] OS CALCIS LTon 12-27-[address] [address] Patient: DAMARIS DYKES Phone#: : 1985 Age: 34 Gender: F Pt. Type: Out Account: [id number] Location: Ordering: VALERI MCCORD Exam Date: 12/27/2019/16:47 Family Phys: Charge Code: [id number] Physician: [place] Order #: [id number] DLP Dose#: PROCEDURE: X-RAY OS CALCIS LT MIN 2 VIEWS COMPARISON: None. INDICATIONS: Left Heel Pain. FINDINGS: BONES: A 6.8 millimeter calcaneal spur is present. No other acute bone abnormality is identified. SOFT TISSUES: Negative. No visible soft tissue swelling. EFFUSION: None visible. OTHER: Negative. CONCLUSION: 1. A calcaneal spur is present. No other acute abnormality is identified. Dictated by: Luna Adrian MD on 12/27/2019 at 17:05 Approved by: Luna Adrian MD on 12/27/2019 at 17:05 Normal [facility] CYTOLOGYon 09-19-2018 CYTOLOGY Specimen originated from [facility] Specimen #: [id number] Submitting Physician: NICHOLAS BRANCH MD SPECIMEN SUBMITTED A: THYROID, RIGHT LOBE, FINE NEEDLE ASPIRATE (THINPREP, SMEARS, AND CELL BLOCK) FINAL DIAGNOSIS A. THYROID, RIGHT LOBE, FINE NEEDLE ASPIRATE (THINPREP, SMEARS, AND CELL BLOCK): Benign. [facility] follicular cells, colloid and cyst contents. Valdez Viera MD (Electronic Signature) CLINICAL DATA Right thyroid lobe nodule GROSS DESCRIPTION 30cc clear, pink-tinged CytoLyt with particles; 6 smears STAINS A: THYROID, RIGHT LOBE, FINE NEEDLE ASPIRATE (THINPREP, SMEARS, AND CELL BLOCK) SMEARS RECEIVED x 6, THIN PREP Non-Academic Affairs Manager, CELL BLOCK, H&E, Initial Date of Report: 09/21/2018 Date of Procedure: 09/19/2018 Date of Receipt: 09/19/2018 Submitted by: NICHOLAS BRANCH MD Additional Physician(s): DO WINSTON PAK Location: [facility] Diagnostic interpretation performed at [facility], [address] [facility] [address] [address]. [facility] Comment on above: Performed By: #### F NTHYR #### [employer] [facility] [address] [place] [address] [phone] US FINE NEEDLE ASPIRATIONon 09-19-2018 US FINE NEEDLE ASPIRATION * * *Final Report* * * DATE OF EXAM: Sep 19 2018 10:27AM U 1249 - US FINE NEEDLE ASPIRATION / PROCEDURE REASON: Thyroid Problem * * * * Physician Interpretation * * * * PROCEDURE PERFORMED: ULTRASOUND GUIDED FINE NEEDLE ASPIRATION BIOPSY OF RIGHT THYROID LOBE NODULE ON 09/19/2018 PRE-PROCEDURE DIAGNOSIS: Right thyroid lobe nodule POST-PROCEDURE DIAGNOSIS: Right thyroid lobe nodule INDICATION FOR PROCEDURE: The patient is a 33 years old Female who presents with solid right thyroid lobe nodule measuring 3.9 cm. STAFF RADIOLOGIST: Dr Branch MANUAL CONTROL AUGER PRESS OPERATOR(S): None CONSENT: The risks, benefits, treatment options, potential complications and personnel involved were discussed with the patient. All questions were answered and consent was obtained. The patient indicated she was willing to proceed. The staff physician personally obtained consent. TIME OUT: A time out was performed immediately prior to procedure start with the interventional team, correctly identifying the patient name, date of , procedure, anatomy (including marking of site and side), patient position, procedure consent form, relevant diagnostic and radiology test results. RESULT: PROCEDURE: After performing the time out, the right thyroid lobe nodule was localized with ultrasound, images were obtained and archived. The skin entry site was marked, and the skin overlying the right neck was prepped and draped in the usual sterile fashion. Under ultrasound guidance, fine needle aspiration biopsy of the right thyroid lobe nodule was performed using 3 25 gauge needles. The patient tolerated the procedure well. The procedure was performed by the: attending radiologist, without an registrar assistant. The attending radiologist performed the following procedural activities: All Local anesthesia was achieved utilizing 4 cc 1 % percent lidocaine. COMPLICATIONS: None SIGN-OUT DISCUSSION: Completed ESTIMATED BLOOD LOSS: Minimal SPECIMENS: 3 FNA specimens were placed on slides and in Cytolyt solution. IMPRESSION: Successful ultrasound-guided fine-needle aspiration biopsy as described. Talent Coordinator: PSCMimi Transcribe Date/Time: Sep 19 2018 11:27A Dictated by : NICHOLAS BRANCH MD This examination was interpreted and the report reviewed and electronically signed by: NICHOLAS BRANCH MD on Sep 19 2018 11:32AM EST [id number] [facility] HOSPon 09-12-2018 HOSP Patient:Adi Dykes MRN: Height:5' 10(1.778 m) Weight:342 lb 6.4 oz (155.312 kg) Outpatient Medications as of 09/19/18: pantoprazole DR (PROTONIX) 40 mg tablet fluticasone (FLONASE) 50 mcg/actuation nasal spray Ranitidine HCl (ZANTAC) 300 mg tablet atorvastatin (LIPITOR) 40 mg tablet busPIRone (BUSPAR) 15 mg tablet prazosin (MINIPRESS) 5 mg cap loratadine (CLARITIN) 10 mg tablet medroxyPROGESTERone (DEPO-PROVERA) 150 mg/mL syrg cholecalciferol, Vitamin D3, (VITAMIN D3) 50,000 unit cap capsule lamoTRIgine (LAMICTAL) 25 mg tablet tiZANidine (ZANAFLEX) 4 mg tablet ibuprofen (MOTRIN) 800 mg tablet paliperidone ER (INVEGA) 6 mg 24 hr tablet Admission/Clinic Administered Medications as of 09/19/18: Patient has no admission medications. Problem List: PAIN JOINT, KNEE [M25.569] Obesity, Class III, BMI 40-49.9 (morbid obesity) (HCC) [E66.01] Unspecified pleural effusion [J90] Depression [F32.9] Plantar fascial fibromatosis [M72.2] Vitamin D deficiency [E55.9] AGUSTO (obstructive sleep apnea) [G47.33] Amenorrhea [N91.2] Impaired fasting blood sugar [R73.01] Hypertriglyceridemia [E78.1] Tetrahydrocannabinol (THC) use disorder, mild, abuse [F12.10] Cervicalgia [M54.2] Chronic low back pain without sciatica [M54.5, G89.29] Diffuse myofascial pain syndrome [M79.18] Myalgia [M79.10] Thyroid nodule [E04.1] Allergies: Adhesive Tape (Rosins) Remeron [Mirtazapine] Date Verified: 09/14/18 Lab Values No results within the last 30 days for the following basenames: K,HCT Progress Notes (SOFT SUGAR OPERATOR [facility]): Eleni Maynard MD 09/14/2018 2:11 PM Signed Mckayla Dykes is a 33 year old who presents for her annual gynecologic exam without complaints. Menses: AUB and menorrhagia prior to depo injection, now currently no bleeding on the depo injection Contraception: Depo Provera Last Pap: 2016 normal HPV: negative History of abnormal pap: Yes - no cervical procedures Last mammogram: never Sexually active: No - states she has not been sexually active over last year Patient concerns for STD exposure: No Obstetric History T2 L2 SAB0 TAB0 Ectopic0 Multiple0 Live Births2 PAST MEDICAL HISTORY Diagnosis Date - Abnormal glandular Papanicolaou smear of cervix Abn. Pap smear (cervix) - Closed dislocation of knee, unspecified part left - Depression MDD, [facility] CNP - DJD (degenerative joint disease), lumbar - Heel spur - Hypertriglyceridemia 03/2014 - Impaired fasting glucose - Methamphetamine abuse (HCC) - Obesity, unspecified - Obstructive sleep apnea on CPAP - Other specified disorder of gallbladder - Pleurisy without mention of effusion or current tuberculosis Pleurisy - Social phobia [facility], [facility] - Suicidal ideation 10/2013, 06/2014 - Tetrahydrocannabinol (THC) use disorder, mild, abuse - Thyroid nodule - Vitamin D deficiency 03/2014 PAST SURGICAL HISTORY Procedure Laterality Date - COLPOSCOPY (VAGINOSCOPY) Colposcopy - HYSTEROSCOPY 02/18/2017 DANDC, hysteroscopy and IUD removal / reinsertion - LAP CHOLECYSTECT/CHOLANGIOGRAPH Y 08/23/07 - OTHER bilateral plantar fasciectomy - PAST SURGICAL HISTORY OF 07/2008 L lung surgery- - TEETH COMPLETE 2006 ? peridontal disease - THORACENTESIS 03/21/08 FAMILY HISTORY Problem Relation Age of Onset - Asthma Mother with atopy - Diabetes Mother edentulous - Hypertension Mother - Psychiatry Mother - Stroke Mother - Thyroid Mother - other (fibromyalgia) Mother - other (sleep apnea) Mother RLS - other (peripheral vascular disease) Mother - Alzheimer's Disease Maternal Grandmother - COPD Maternal Grandmother - Coronary Artery Disease Maternal Grandmother [place] - Diabetes Maternal Grandmother - Emphysema Maternal Grandmother - Heart Maternal Grandmother - other (RA) Maternal Grandmother - Breast Cancer Paternal Grandmother - Asthma Brother with atopy SOCIAL HISTORY Social History Substance Use Topics - Smoking status: Former Smoker Packs/day: 0.50 Years: 22.00 Types: Cigarettes Quit date: 08/26/2018 - Smokeless tobacco: Never Used - Alcohol use No REVIEW OF SYSTEMS Abdomen: No abdominal pain, nausea, vomiting, diarrhea, or constipation. Bladder: No dysuria, gross hematuria, urinary frequency, urinary urgency, or incontinence. Breast: No breast lumps, overlying skin changes, redness or skin retraction. +Has always had an inverted left nipple. +Bilateral white nipple discharge with breast stimulation since starting her psych medication Allergies and current medication updated:Yes EXAM: BP 102/68 Ht 5' 10 (1.78m) Wt 342 lb 6.4 oz (155.3kg) BMI 49.13 kg/(m2). GENERAL: pleasant, female in no apparent distress HEENT: Normocephalic and atraumatic NECK: full range of motion DERMATOLOGY: Normal, without lesions other than scarring BREAST: soft, non-tender, symmetric, no dominant mass, no lymphadenopathy, no nipple discharge and left nipple inverted which patient states her nipple has always been this way CHEST: Normal inspiratory effort ABDOMEN: soft, non-tender and no masses PELVIC: external genitalia normal, normal Bartholin's glands, urethra, Osino's glands, no vulvar lesions, no cervical lesions, good vaginal support, physiologic discharge present, normal appearing perineal body and perianal region BIMANUAL: uterus normal size, shape and consistency, no adnexal masses, non-tender and limited by body habitus NEURO: exam grossly non-focal EXTREMITIES: normal ASSESSMENT/PLAN: 1) Health maintenance: Pap/HPV up to date. Nutrition, exercise and routine health maintenance exams reviewed. Pelvic exam WNL. Discussed self breast exams. 2) Contraception: Depo Provera. Contraceptive options reviewed and information provided. To get depo injection today. 3) STD screening: Declined STD check. 4) Follow up one year or sooner as needed Eleni Maynard, DO Previous Version Eleni Maynard MD 09/14/2018 1:38 PM Signed Adelaide Tolbert LPN 09/14/2018 1:57 PM Signed The patient is here for an injection of Depoprovera. Dose: 150mg/ml Amount wasted: 0. Route: Intramuscular Site: left upper quadrant gluteus Drawbridge Operator: [employer] Lot #: [id number] Expiration Date: 05/01/22 The date due for the next injection is in 12 weeks Adelaide Tolbert LPN Progress Notes ([facility]): Salena Abdul RN, RN 09/12/2018 2:05 PM Signed Spoke with patient to schedule biopsy for 09-19-18 at 0900. Pre procedure instructions given. No further questions at this time. Patient has office number if any issues arise. Normal [facility] Vital Signs Date Time Vital Sign Value Performing Clinician Facility 03-07-2025 13:39-0400 Body height 177.8 cm Lindsay MoyaAdWired Work Phone: [facility] 03-07-2025 13:39-0400 Body mass index (BMI) [Ratio] 37.54 kg/m2 Lindsay Gerald CNP Work Phone: [facility] 03-07-2025 13:39-0400 Body weight 118.66 kg Lindsaytano MoyaAdWired Work Phone: [facility] 03-07-2025 13:39-0400 Diastolic blood pressure 65 mm[Hg] Lindsay Gerald CNP Work Phone: [facility] 03-07-2025 13:39-0400 Heart rate 58 /min Lindsay Gerald CNP Work Phone: [facility] 03-07-2025 13:39-0400 SaO2% (BldA) [Mass fraction] 95 % Lindsay Gerald CENTRAL SUPPLY MANAGER Work Phone: [facility] 03-07-2025 13:39-0400 Systolic blood pressure 103 mm[Hg] Lindsay Sherman CNP Work Phone: [facility] 10-06-2024 13:49-0500 Body mass index (BMI) [Ratio] 43.68 kg/m2 Tory Vela MD Work Phone: [facility] 10-06-2024 13:49-0500 Body weight 138.07 kg Tory Vela MD Work Phone: [facility] 10-06-2024 13:49-0500 Diastolic blood pressure 71 mm[Hg] Tory Vela MD Work Phone: [facility] 10-06-2024 13:49-0500 Heart rate 89 /min Tory Vela MD Work Phone: [facility] 10-06-2024 13:49-0500 Systolic blood pressure 110 mm[Hg] Tory Vela MD Work Phone: [facility] 09-21-2024 13:13-0500 Body mass index (BMI) [Ratio] 43.68 kg/m2 Tory Vela MD Work Phone: [facility] 09-21-2024 13:13-0500 Body weight 138.07 kg Tory Vela MD Work Phone: [facility] 09-21-2024 13:13-0500 Diastolic blood pressure 74 mm[Hg] Tory Vela MD Work Phone: [facility] 09-21-2024 13:13-0500 Heart rate 73 /min Tory Vela MD Work Phone: [facility] 09-21-2024 13:13-0500 Systolic blood pressure 107 mm[Hg] Tory Vela MD Work Phone: [facility] 08-21-2024 15:08-0500 Body mass index (BMI) [Ratio] 42.06 kg/m2 Tory Vela MD Work Phone: [facility] 08-21-2024 15:08-0500 Body weight 132.95 kg Tory Vela MD Work Phone: [facility] 08-21-2024 15:08-0500 Diastolic blood pressure 76 mm[Hg] Tory Vela MD Work Phone: [facility] 08-21-2024 15:08-0500 Heart rate 90 /min Tory Vela MD Work Phone: [facility] 08-21-2024 15:08-0500 Systolic blood pressure 116 mm[Hg] Tory Vela MD Work Phone: [facility] 08-14-2024 09:21-0500 Body height 177.8 cm Gilles Kim MD Work Phone: [facility] 08-14-2024 09:21-0500 Body mass index (BMI) [Ratio] 41.61 kg/m2 Gilles Kim MD Work Phone: [facility] 08-14-2024 09:21-0500 Body weight 131.54 kg Gilles Kim MD Work Phone: [facility] 08-14-2024 09:21-0500 Diastolic blood pressure 65 mm[Hg] Gilles Kim MD Work Phone: [facility] 08-14-2024 09:21-0500 Heart rate 93 /min Gilles Kim MD Work Phone: [facility] 08-14-2024 09:21-0500 Respiratory rate 14 /min Gilles Kim MD Work Phone: [facility] 08-14-2024 09:21-0500 SaO2% (BldA) [Mass fraction] 98 % Gilles Kim MD Work Phone: [facility] 08-14-2024 09:21-0500 Systolic blood pressure 98 mm[Hg] Gilles Kim MD Work Phone: [facility] 08-03-2024 14:28-0500 Body mass index (BMI) [Ratio] 41.32 kg/m2 Tory Vela MD Work Phone: [facility] 08-03-2024 14:28-0500 Body weight 130.64 kg Tory Vela MD Work Phone: [facility] 08-03-2024 14:28-0500 Diastolic blood pressure 80 mm[Hg] Tory Vela MD Work Phone: [facility] 08-03-2024 14:28-0500 Heart rate 76 /min Tory Vela MD Work Phone: [facility] 08-03-2024 14:28-0500 Systolic blood pressure 119 mm[Hg] Tory Vela MD Work Phone: [facility] 06-20-2024 11:13-0500 Body mass index (BMI) [Ratio] 40.79 kg/m2 Evangelista Myles CNM Work Phone: [facility] 06-20-2024 11:13-0500 Body weight 128.96 kg Evangelista Myles CNM Work Phone: [facility] 06-20-2024 11:13-0500 Diastolic blood pressure 76 mm[Hg] Evangelista Myles CNM Work Phone: [facility] 06-20-2024 11:13-0500 Heart rate 80 /min Evangelista Myles CNM Work Phone: [facility] 06-20-2024 11:13-0500 Systolic blood pressure 113 mm[Hg] Evangelista Myles CNM Work Phone: [facility] 03-02-2024 14:38-0400 Body height 177.8 cm Carlos Browne MD Work Phone: [facility] 03-02-2024 14:38-0400 Body mass index (BMI) [Ratio] 39.69 kg/m2 Carlos Browne MD Work Phone: [facility] 03-02-2024 14:38-0400 Body weight 125.47 kg Carlos Browne MD Work Phone: [facility] 03-02-2024 14:38-0400 Diastolic blood pressure 72 mm[Hg] Carlos Browne MD Work Phone: [facility] 03-02-2024 14:38-0400 Heart rate 90 /min Carlos Browne MD Work Phone: [facility] 03-02-2024 14:38-0400 Systolic blood pressure 111 mm[Hg] Carlos Browne MD Work Phone: [facility] 03-02-2024 08:20-0400 Body mass index (BMI) [Ratio] 39.46 kg/m2 Varinder Patel DO Work Phone: [facility] 03-02-2024 08:20-0400 Body weight 124.74 kg Varinder Patel DO Work Phone: [facility] 03-02-2024 08:20-0400 Diastolic blood pressure 76 mm[Hg] Varinder Patel DO Work Phone: [facility] 03-02-2024 08:20-0400 Heart rate 67 /min Varinder Patel DO Work Phone: [facility] 03-02-2024 08:20-0400 SaO2% (BldA) [Mass fraction] 98 % Varinder Patel DO Work Phone: [facility] 03-02-2024 08:20-0400 Systolic blood pressure 114 mm[Hg] Varinder Patel DO Work Phone: [facility] 01-11-2024 13:22-0400 Body height 177.8 cm Power Parker MD Work Phone: [facility] 01-11-2024 13:22-0400 Body mass index (BMI) [Ratio] 35.87 kg/m2 Power Parker MD Work Phone: [facility] 01-11-2024 13:22-0400 Body weight 113.4 kg Power Parker MD Work Phone: [facility] 10-19-2023 10:42-0400 Body mass index (BMI) [Ratio] 38.48 kg/m2 Mo Kaur MD Work Phone: [facility] 10-19-2023 10:42-0400 Body weight 121.66 kg Mo Kaur MD Work Phone: [facility] 10-19-2023 10:42-0400 Diastolic blood pressure 78 mm[Hg] Mo Kaur MD Work Phone: [facility] 10-19-2023 10:42-0400 Heart rate 92 /min Mo Kaur MD Work Phone: [facility] 10-19-2023 10:42-0400 Systolic blood pressure 126 mm[Hg] Mo Kaur MD Work Phone: [facility] 10-05-2023 11:02-0500 Body height 177.8 cm Lindsay Gerald CENTRAL SUPPLY MANAGER Work Phone: [facility] 10-05-2023 11:02-0500 Body mass index (BMI) [Ratio] 37.88 kg/m2 Lindsay Gerald CENTRAL SUPPLY MANAGER Work Phone: [facility] 10-05-2023 11:02-0500 Body weight 119.75 kg Lindsay Gerald CENTRAL SUPPLY MANAGER Work Phone: [facility] 10-05-2023 11:02-0500 Diastolic blood pressure 72 mm[Hg] Lindsay Gerald CENTRAL SUPPLY MANAGER Work Phone: [facility] 10-05-2023 11:02-0500 Heart rate 76 /min Lindsay Gerald CENTRAL SUPPLY MANAGER Work Phone: [facility] 10-05-2023 11:02-0500 SaO2% (BldA) [Mass fraction] 98 % Lindsay Gerald CENTRAL SUPPLY MANAGER Work Phone: [facility] 10-05-2023 11:02-0500 Systolic blood pressure 109 mm[Hg] Lindsay Gerald CENTRAL SUPPLY MANAGER Work Phone: [facility] 09-28-2023 15:16-0500 Body mass index (BMI) [Ratio] 37.95 kg/m2 Jaena Myles CNM Work Phone: [facility] 09-28-2023 15:16-0500 Body weight 119.98 kg Evangelista Myles CNM Work Phone: [facility] 09-28-2023 15:16-0500 Diastolic blood pressure 73 mm[Hg] Evangelista Myles CNM Work Phone: [facility] 09-28-2023 15:16-0500 Heart rate 130 /min Evangelista Myles CNM Work Phone: [facility] 09-28-2023 15:16-0500 Systolic blood pressure 118 mm[Hg] Evangelista Myles CNM Work Phone: [facility] 09-13-2023 13:50-0500 Body height 177.8 cm Parviz Dobbins MD Work Phone: [facility] 09-13-2023 13:50-0500 Body mass index (BMI) [Ratio] 37.48 kg/m2 Parviz Dobbins MD Work Phone: [facility] 09-13-2023 13:50-0500 Body temperature 99.39 [degF] Parviz Dobbins MD Work Phone: [facility] 09-13-2023 13:50-0500 Body weight 118.48 kg Parviz Dobbins MD Work Phone: [facility] 09-07-2023 20:27-0500 Diastolic blood pressure 76 mm[Hg] Jose Whitehead DO Work Phone: [facility] 09-07-2023 20:27-0500 Heart rate 98 /min Jose Whitehead DO Work Phone: [facility] 09-07-2023 20:27-0500 Respiratory rate 18 /min Jose Whitehead DO Work Phone: [facility] 09-07-2023 20:27-0500 SaO2% (BldA) [Mass fraction] 99 % Jose Whitehead DO Work Phone: [facility] 09-07-2023 20:27-0500 Systolic blood pressure 121 mm[Hg] Jose Whitehead DO Work Phone: [facility] 09-07-2023 16:01-0500 Body height 177.8 cm Jose Whitehead DO Work Phone: [facility] 09-07-2023 16:01-0500 Body mass index (BMI) [Ratio] 34.87 kg/m2 Jose Whitehead DO Work Phone: [facility] 09-07-2023 16:01-0500 Body weight 110.22 kg Jose Whitehead DO Work Phone: [facility] 08-30-2023 13:43-0500 Body height 177.8 cm Parviz Dobbins MD Work Phone: [facility] 08-30-2023 13:43-0500 Body mass index (BMI) [Ratio] 36.99 kg/m2 Parviz Dobbins MD Work Phone: [facility] 08-30-2023 13:43-0500 Body temperature 99.1 [degF] Parviz Dobbins MD Work Phone: [facility] 08-30-2023 13:43-0500 Body weight 116.94 kg Parviz Dobbins MD Work Phone: [facility] 08-13-2023 10:34-0500 Body mass index (BMI) [Ratio] 36.3 kg/m2 Gilles Kim MD Work Phone: [facility] 08-13-2023 10:34-0500 Body weight 114.76 kg Gilles Kim MD Work Phone: [facility] 08-13-2023 10:34-0500 Diastolic blood pressure 82 mm[Hg] Gilles Kim MD Work Phone: [facility] 08-13-2023 10:34-0500 Heart rate 96 /min Gilles Kim MD Work Phone: [facility] 08-13-2023 10:34-0500 Systolic blood pressure 123 mm[Hg] Gilles Kim MD Work Phone: [facility] 08-06-2023 08:27-0500 Body temperature 97.3 [degF] Gilles Kim MD Work Phone: [facility] 08-06-2023 08:27-0500 Diastolic blood pressure 85 mm[Hg] Gilles Kim MD Work Phone: [facility] 08-06-2023 08:27-0500 Heart rate 78 /min Gilles Kim MD Work Phone: [facility] 08-06-2023 08:27-0500 SaO2% (BldA) [Mass fraction] 94 % Gilles Kim MD Work Phone: [facility] 08-06-2023 08:27-0500 Systolic blood pressure 127 mm[Hg] Gilles Kim MD Work Phone: [facility] 08-06-2023 08:14-0500 Respiratory rate 17 /min Gilles Kim MD Work Phone: [facility] 08-06-2023 04:11-0500 Body mass index (BMI) [Ratio] 36.3 kg/m2 Gilles Kim MD Work Phone: [facility] 08-06-2023 04:11-0500 Body weight 114.76 kg Gilles Kim MD Work Phone: [facility] 08-04-2023 10:30-0500 Body height 177.8 cm Gilles Kim MD Work Phone: [facility] 08-03-2023 10:30-0500 Body height 177.8 cm Lindsay Sherman CENTRAL SUPPLY MANAGER Work Phone: [facility] 08-03-2023 10:30-0500 Body mass index (BMI) [Ratio] 36.56 kg/m2 Lindsay Sherman CENTRAL SUPPLY MANAGER Work Phone: [facility] 08-03-2023 10:30-0500 Body weight 115.58 kg Lindsay Sherman CENTRAL SUPPLY MANAGER Work Phone: [facility] 08-03-2023 10:30-0500 Diastolic blood pressure 77 mm[Hg] Lindsay Sherman CENTRAL SUPPLY MANAGER Work Phone: [facility] 08-03-2023 10:30-0500 Heart rate 85 /min Lindsay Sherman CENTRAL SUPPLY MANAGER Work Phone: [facility] 08-03-2023 10:30-0500 SaO2% (BldA) [Mass fraction] 98 % Lindsay Sherman CENTRAL SUPPLY MANAGER Work Phone: [facility] 08-03-2023 10:30-0500 Systolic blood pressure 112 mm[Hg] Lindsay Sherman CENTRAL SUPPLY MANAGER Work Phone: [facility] 07-08-2023 15:16-0500 Body height 177.8 cm Mo Kaur MD Work Phone: [facility] 07-08-2023 15:16-0500 Body mass index (BMI) [Ratio] 34.98 kg/m2 Mo Kaur MD Work Phone: [facility] 07-08-2023 15:16-0500 Body weight 110.59 kg Mo Kaur MD Work Phone: [facility] 07-08-2023 15:16-0500 Diastolic blood pressure 77 mm[Hg] Mo Kaur MD Work Phone: [facility] 07-08-2023 15:16-0500 Heart rate 102 /min Mo Kaur MD Work Phone: [facility] 07-08-2023 15:16-0500 Systolic blood pressure 117 mm[Hg] Mo Kaur MD Work Phone: [facility] 06-23-2023 08:31-0500 Body height 177.8 cm Mo Kaur MD Work Phone: [facility] 06-23-2023 08:31-0500 Body mass index (BMI) [Ratio] 34.61 kg/m2 Mo Kaur MD Work Phone: [facility] 06-23-2023 08:31-0500 Body weight 109.41 kg Mo Kaur MD Work Phone: [facility] 06-23-2023 08:31-0500 Diastolic blood pressure 82 mm[Hg] Mo Kaur MD Work Phone: [facility] 06-23-2023 08:31-0500 Heart rate 92 /min Mo Kaur MD Work Phone: [facility] 06-23-2023 08:31-0500 SaO2% (BldA) [Mass fraction] 99 % Mo Kaur MD Work Phone: [facility] 06-23-2023 08:31-0500 Systolic blood pressure 113 mm[Hg] Mo Kaur MD Work Phone: [facility] 04-27-2023 10:30-0400 Body height 170.2 cm Varinder Mohr MD Work Phone: [facility] 04-27-2023 10:30-0400 Body mass index (BMI) [Ratio] 40.25 kg/m2 Varinder Mohr MD Work Phone: [facility] 04-27-2023 10:30-0400 Body weight 116.57 kg Varinder Mohr MD Work Phone: [facility] 04-08-2023 09:35-0400 Body height 170.2 cm Lindsay Gerald CENTRAL SUPPLY MANAGER Work Phone: [facility] 04-08-2023 09:35-0400 Body mass index (BMI) [Ratio] 40.25 kg/m2 Lindsay Gerald CENTRAL SUPPLY MANAGER Work Phone: [facility] 04-08-2023 09:35-0400 Body weight 116.57 kg Lindsay Gerald CENTRAL SUPPLY MANAGER Work Phone: [facility] 04-08-2023 09:35-0400 Diastolic blood pressure 79 mm[Hg] Lindsay Gerald CENTRAL SUPPLY MANAGER Work Phone: [facility] 04-08-2023 09:35-0400 Heart rate 80 /min Lindsay Gerald CENTRAL SUPPLY MANAGER Work Phone: [facility] 04-08-2023 09:35-0400 SaO2% (BldA) [Mass fraction] 98 % Lindsay Sherman CENTRAL SUPPLY MANAGER Work Phone: [facility] 04-08-2023 09:35-0400 Systolic blood pressure 119 mm[Hg] Lindsay Sherman CNP Work Phone: [facility] 03-07-2023 23:21-0400 Diastolic blood pressure 67 mm[Hg] Toi Burt MD Work Phone: [facility] 03-07-2023 23:21-0400 Heart rate 76 /min Toi Burt MD Work Phone: [facility] 03-07-2023 23:21-0400 Respiratory rate 16 /min Toi Burt MD Work Phone: [facility] 03-07-2023 23:21-0400 SaO2% (BldA) [Mass fraction] 97 % Toi Burt MD Work Phone: [facility] 03-07-2023 23:21-0400 Systolic blood pressure 133 mm[Hg] Toi Burt MD Work Phone: [facility] 03-07-2023 20:13-0400 Body height 177.8 cm Toi Burt MD Work Phone: [facility] 03-07-2023 20:13-0400 Body mass index (BMI) [Ratio] 38.02 kg/m2 Toi Burt MD Work Phone: [facility] 03-07-2023 20:13-0400 Body weight 120.2 kg Toi Burt MD Work Phone: [facility] 03-07-2023 20:12-0400 Body temperature 97.11 [degF] Toi Burt MD Work Phone: [facility] 07-30-2022 17:16-0500 Body temperature 97.3 [degF] Winston Ruiz Work Phone: [facility] 07-30-2022 17:16-0500 Respiratory rate 18 /min Winston Ruiz Work Phone: [facility] 07-30-2022 17:16-0500 SaO2% (BldA) [Mass fraction] 99 % Winston Ruiz Work Phone: [facility] 05-27-2022 14:15-0400 Body temperature 97.9 [degF] Brianda Jazlyn TIRE INSTALLER.CENTRAL SUPPLY MANAGER Work Phone: [facility] 05-27-2022 14:15-0400 Body weight 115.21 kg Brianda Jazlyn TIRE INSTALLER.CENTRAL SUPPLY MANAGER Work Phone: [facility] 05-27-2022 14:15-0400 Diastolic blood pressure 80 mm[Hg] Brianda Jazlyn TIRE INSTALLER.CENTRAL SUPPLY MANAGER Work Phone: [facility] 05-27-2022 14:15-0400 Heart rate 90 /min Brianda Jazlyn TIRE INSTALLER.CENTRAL SUPPLY MANAGER Work Phone: [facility] 05-27-2022 14:15-0400 Respiratory rate 16 /min Brianda Jazlyn TIRE INSTALLER.CENTRAL SUPPLY MANAGER Work Phone: [facility] 05-27-2022 14:15-0400 SaO2% (BldA) [Mass fraction] 96 % Brianda Jazlyn TIRE INSTALLER.CENTRAL SUPPLY MANAGER Work Phone: [facility] 05-27-2022 14:15-0400 Systolic blood pressure 124 mm[Hg] Brianda Jazlyn TIRE INSTALLER.CENTRAL SUPPLY MANAGER Work Phone: [facility] 02-23-2022 08:28-0400 Body height 177.8 cm Mauro Spain MD Work Phone: [facility] 02-23-2022 08:28-0400 Body weight 122.02 kg Mauro Spain MD Work Phone: [facility] 02-23-2022 06:54-0400 Body weight 122.02 kg Jennifer Dumascalf TIRE INSTALLER.CENTRAL SUPPLY MANAGER Work Phone: [facility] 02-23-2022 06:54-0400 Diastolic blood pressure 70 mm[Hg] Jennifer Isis TIRE INSTALLER.CENTRAL SUPPLY MANAGER Work Phone: [facility] 02-23-2022 06:54-0400 Systolic blood pressure 108 mm[Hg] Jennifer Santaquin TIRE INSTALLER.CENTRAL SUPPLY MANAGER Work Phone: [facility] 02-17-2022 09:02-0400 Body weight 121.56 kg Jennifer Santaquin TIRE INSTALLER.CENTRAL SUPPLY MANAGER Work Phone: [facility] 02-17-2022 09:02-0400 Diastolic blood pressure 72 mm[Hg] Jennifer Isis TIRE INSTALLER.CENTRAL SUPPLY MANAGER Work Phone: [facility] 02-17-2022 09:02-0400 Systolic blood pressure 114 mm[Hg] Jennifer Santaquin TIRE INSTALLER.CENTRAL SUPPLY MANAGER Work Phone: [facility] 01-02-2022 10:06-0400 Body height 177.8 cm Lizandro Medeiros MD Work Phone: [facility] 01-02-2022 10:06-0400 Body temperature 98.2 [degF] Lizandro Medeiros MD Work Phone: [facility] 01-02-2022 10:06-0400 Body weight 128.37 kg Lizandro Medeiros MD Work Phone: [facility] 01-02-2022 10:06-0400 Diastolic blood pressure 70 mm[Hg] Lizandro Medeiros MD Work Phone: [facility] 01-02-2022 10:06-0400 Heart rate 103 /min Lizandro Medeiros MD Work Phone: [facility] 01-02-2022 10:06-0400 SaO2% (BldA) [Mass fraction] 97 % Lizandro Medeiros MD Work Phone: [facility] 01-02-2022 10:06-0400 Systolic blood pressure 106 mm[Hg] Lizandro Medeiros MD Work Phone: [facility] 12-31-2021 09:49-0400 Body temperature 98.24 [degF] PABLO NAYLOR MD [facility] 12-31-2021 09:49-0400 Body weight 128.6 kg PABLO NAYLOR MD [facility] 12-31-2021 09:49-0400 Diastolic blood pressure 86 mm[Hg] PABLO NAYLOR MD [facility] 12-31-2021 09:49-0400 Heart rate 89 /min PABLO NAYLOR MD [facility] 12-31-2021 09:49-0400 Mean blood pressure 96 mm[Hg] PABLO NAYLOR MD [facility] 12-31-2021 09:49-0400 Respiratory rate 17 /min PABLO NAYLOR MD [facility] 12-31-2021 09:49-0400 Systolic blood pressure 117 mm[Hg] PABLO NAYLOR MD [facility] 12-24-2021 18:29-0400 Body temperature 97 [degF] Winston Ruiz DO Work Phone: [facility] 12-24-2021 18:29-0400 Body weight 131.54 kg Winston Ruiz DO Work Phone: [facility] 12-24-2021 18:29-0400 Diastolic blood pressure 60 mm[Hg] Winston Ruiz DO Work Phone: [facility] 12-24-2021 18:29-0400 Heart rate 88 /min Winston Ruiz DO Work Phone: [facility] 12-24-2021 18:29-0400 Respiratory rate 16 /min Winston Ruiz DO Work Phone: [facility] 12-24-2021 18:29-0400 Systolic blood pressure 120 mm[Hg] Winston Ruiz DO Work Phone: [facility] 11-26-2021 14:14-0400 Body weight 137.44 kg Nurse Wstr Work Phone: [facility] 11-26-2021 14:14-0400 Diastolic blood pressure 72 mm[Hg] Nurse Wstr Work Phone: [facility] 11-26-2021 14:14-0400 Systolic blood pressure 110 mm[Hg] Nurse Wstr Work Phone: [facility] 11-10-2021 12:17-0400 Diastolic blood pressure 63 mm[Hg] Lizandro Medeiros MD Work Phone: [facility] 11-10-2021 12:17-0400 Heart rate 81 /min Lizandro Medeiros MD Work Phone: [facility] 11-10-2021 12:17-0400 Respiratory rate 16 /min Lizandro Medeiros MD Work Phone: [facility] 11-10-2021 12:17-0400 SaO2% (BldA) [Mass fraction] 97 % Lizandro Medeiros MD Work Phone: [facility] 11-10-2021 12:17-0400 Systolic blood pressure 121 mm[Hg] Lizandro Medeiros MD Work Phone: [facility] 11-10-2021 10:15-0400 Body temperature 98.6 [degF] Lizandro Medeiros MD Work Phone: [facility] 11-10-2021 10:15-0400 Body weight 140.6 kg Lizandro Medeiros MD Work Phone: [facility] 10-30-2021 09:52-0400 Body height 177.8 cm Christina Rajguru TIRE INSTALLER.CENTRAL SUPPLY MANAGER Work Phone: [facility] 10-30-2021 09:52-0400 Body weight 140.62 kg Christina Laureanoemelinaru TIRE INSTALLER.CENTRAL SUPPLY MANAGER Work Phone: [facility] 10-30-2021 09:52-0400 Diastolic blood pressure 70 mm[Hg] Christina Laureanoemelinaru TIRE INSTALLER.CENTRAL SUPPLY MANAGER Work Phone: [facility] 10-30-2021 09:52-0400 Systolic blood pressure 124 mm[Hg] Christina Laureanoguru TIRE INSTALLER.CENTRAL SUPPLY MANAGER Work Phone: [facility] Encounters Encounter Date Encounter Type Care Provider Facility Start: 05-15-2025 End: 05-15-2025 ambulatory HARRIET MAST TIRE INSTALLER-CENTRAL SUPPLY MANAGER Facility:[facility] Start: 05-15-2025 End: 05-15-2025 Patient encounter procedure HARRIET MAST TIRE INSTALLER-CENTRAL SUPPLY MANAGER [facility] Start: 04-27-2025 End: 04-27-2025 Emergency department patient visit DR YOHANNES HOGUE DO [facility] Start: 04-18-2025 End: 04-18-2025 Emergency department patient visit Dwain Plasencia Facility:[facility] Start: 04-18-2025 ambulatory Brad Baig ity:[facility] Start: 03-20-2025 End: 03-20-2025 ambulatory BRANDON SULTANA [facility] Start: 03-07-2025 End: 03-07-2025 Office outpatient visit 15 minutes Lindsay Sherman CENTRAL SUPPLY MANAGER Work Phone: [facility] Comment on above: Dysphagia, unspecifi ed type (Primary Dx); Nausea and vomiting, unspecified vomiting type; Diarrhea, unspecified type Start: 03-07-2025 End: 03-07-2025 [facility] Start: 03-02-2025 End: 03-02-2025 Emergency department patient visit NABEEL DOBBINS [facility] Start: 01-14-2025 End: 01-14-2025 Emergency department patient visit LUTHER VIRAMONTES [facility] Start: 01-08-2025 End: 01-08-2025 Emergency department patient visit MICHELLE RAIN [facility] Start: 12-14-2024 End: 12-14-2024 Emergency department patient visit MICHELLE RAIN [facility] Start: 10-30-2024 End: 10-30-2024 Emergency department patient visit MICHELLE RAIN [facility] Start: 10-06-2024 End: 10-06-2024 [facility] Start: 10-06-2024 End: 10-06-2024 Follow-up encounter Tory Vela MD Work Phone: [facility] Comment on above: Postoperative examin ation (Primary Dx); Nexplanon removal Start: 09-27-2024 [facility] Start: 09-24-2024 End: 09-25-2024 Refill Carlos Browne MD Work Phone: [facility] Comment on above: Refill Request (levo thyroxine) Start: 09-21-2024 End: 09-21-2024 Postop follow up visit related to original px Tory Vela MD Work Phone: [facility] Comment on above: Postoperative examin ation (Primary Dx) Start: 09-21-2024 End: 09-21-2024 [facility] Start: 09-12-2024 End: 09-13-2024 ambulatory MICHELLE VAL [facility] Start: 09-04-2024 ambulatory MADHU NYE [facility] Start: 08-31-2024 Preprocedural examin ation done Tory Vela MD Work Phone: [facility] Start: 08-31-2024 End: 09-04-2024 ambulatory MICHELLEJAMES NEAL [facility] Start: 08-31-2024 End: 09-04-2024 Encounter for other preprocedural examination CODY STEVE [facility] Start: 08-21-2024 End: 08-21-2024 Patient encounter procedure Tory Vela MD Work Phone: [facility] Comment on above: Abnormal uterine ble eding (Primary Dx) Start: 08-21-2024 End: 08-21-2024 ambulatory MICHELLE RAIN [facility] Start: 08-14-2024 End: 08-14-2024 Orders Only Tory Vela MD Work Phone: [facility] Comment on above: Abnormal uterine ble eding (Primary Dx) Start: 08-14-2024 End: 08-14-2024 Office outpatient visit 10 minutes Gilles Kim MD Work Phone: [facility] Comment on above: Throat pain (Primary Dx); Voice fatigue Start: 08-04-2024 End: 08-04-2024 Emergency department patient visit CATIECARITO HUNTER [facility] Start: 08-03-2024 End: 08-03-2024 Office outpatient visit 25 minutes Tory Vela MD Work Phone: [facility]etric[facility] Gynecology Comment on above: Abnormal uterine ble eding (Primary Dx); Breakthrough bleeding on Nexplanon Start: 08-03-2024 End: 08-03-2024 ambulatory EVANGELISTA MYLES [facility] Start: 08-02-2024 End: 08-02-2024 Emergency department patient visit MICHELLE RAIN [facility] Start: 06-20-2024 End: 06-20-2024 ambulatory EVANGELISTA MYLES [facility] Start: 06-20-2024 End: 06-20-2024 Office outpatient new 30 minutes Evangelista SPARKS Work Phone: [facility] Ob[facility]etrics [facility] Gynecology Comment on above: Abnormal uterine ble eding (Primary Dx) Start: 05-29-2024 End: 05-29-2024 Emergency department patient visit MICHELLE RANI [facility] Start: 05-17-2024 End: 05-22-2024 ambulatory Varinder Patel DO Work Phone: [facility] Start: 05-17-2024 End: 05-22-2024 Home visit Varinder Santos Jorge DO Work Phone: [facility] Start: 04-17-2024 End: 04-17-2024 Telephone encounter Libertad Conti MD Work Phone: [facility] Comment on above: Appointment (New pat ient ) Start: 03-14-2024 Telephone encounter Varinder Santos Jorge DO Work Phone: [facility] Comment on above: Orders (EMG bilatera l hands) Orders (MRI cervical spine w/o IV contrast) Start: 03-03-2024 Telephone encounter Varinder Akash Jorge DO Work Phone: [facility] Comment on above: Orders (MRI Cervical spine w/ IV contrast) Start: 03-02-2024 End: 03-02-2024 Emergency department patient visit VARINDER Santos PATEL Facility:[facility] Start: 03-02-2024 End: 03-02-2024 ambulatory CARLOS BROWNE Facility:[facility] Start: 03-02-2024 End: 03-02-2024 ambulatory VARINDER PATEL Facility[facility] Start: 03-02-2024 End: 03-02-2024 Patient encounter procedure Varinder Santos Jorge DO Work Phone: [facility] Comment on above: Encounter for medica l examination to establish care (Primary Dx); Essential hypertension; Hypertriglyceridemia; AGUSTO (obstructive sleep apnea); Gastroesophageal reflux disease, unspecified whether esophagitis present; MG (generalized anxiety disorder); Chronic post-traumatic stress disorder (PTSD); Bipolar 2 disorder (HCC); Borderline personality disorder (HCC); Tetrahydrocannabinol (THC) use disorder, mild, abuse; Hypokalemia; Hypothyroidism, acquired; Paresthesia of hand, bilateral; Obesity, Class II, BMI 35-39.9 Postoperative hypoth yroidism (Primary Dx); Papillary microcarcinoma of thyroid (HCC); Hypokalemia Start: 03-02-2024 End: 03-02-2024 Patient encounter status Varinder Patel DO Work Phone: [facility] Work Phone: Start: 03-02-2024 End: 03-02-2024 ambulatory SELF Facility:[facility] Start: 03-02-2024 Encounter for genera l adult medical examination without abnormal findings VARINDER PATEL [facility] Start: 02-22-2024 End: 02-22-2024 ambulatory MICHELLE L ZANAT Facility:[facility] Start: 02-22-2024 End: 02-22-2024 ambulatory MICHELLE L SWIHART Facility:[facility] Start: 02-22-2024 End: 02-22-2024 Patient encounter procedure Power Parker MD Work Phone: [facility] [place] 2] Comment on above: Tenosynovitis of rig ht ankle (Primary Dx); Calf swelling; Paresthesia and pain of both upper extremities; Postoperative hypothyroidism; S/P complete thyroidectomy Start: 02-04-2024 Telephone encounter Power vinson MD Work Phone: Orthopedics Comment on above: Appointment Start: 01-28-2024 End: 01-28-2024 ambulatory POWER PARKER Facility:[facility] Start: 01-28-2024 End: 01-28-2024 Subsequent hospital visit by physician Power Parker MD Work Phone: Radiology Comment on above: Acute right ankle pa in [M25.571] Start: 01-27-2024 End: 01-27-2024 Emergency department patient visit SHANNAN GURROLA Facility:[facility] Start: 01-27-2024 ambulatory Emilee Mccall ats RT(R) Radiology Comment on above: Radio Gen RMP Start: 01-27-2024 Patient encounter procedure Emilee Peguero RT(R) Radiology Start: 01-11-2024 End: 01-11-2024 Orders Only Power Parker MD Work Phone: [facility] Comment on above: Pain (Primary Dx) Acute right ankle pa in (Primary Dx); Pain in right foot; Calf swelling Pain [R52] Start: 12-26-2023 End: 12-26-2023 Emergency department patient visit BRAD Adi GARCIA Facility:[facility] Start: 12-08-2023 End: 12-09-2023 ambulatory [facility] Start: 12-02-2023 Documentation procedure Parviz Dobbins MD Work Phone: [facility] Start: 11-05-2023 Orders Only Jeancarloskelle Diana hall CNM Work Phone: [facility] Ob[facility]ne[facility] Comment on above: Breakthrough bleedin g on Nexplanon (Primary Dx) Start: 10-19-2023 End: 10-19-2023 Office outpatient visit 25 minutes Mo Kaur MD Work Phone: [facility] Comment on above: Thyroid cancer (HCC) (Primary Dx); S/P thyroidectomy; Hypothyroidism, unspecified type Start: 10-05-2023 End: 10-05-2023 Office outpatient visit 15 minutes Lindsay Sherman CNP Work Phone: [facility] Gastroenterology Comment on above: Gastroesophageal ref lux disease, unspecified whether esophagitis present (Primary Dx); Irritable bowel syndrome, unspecified type Start: 09-28-2023 End: 09-28-2023 Patient encounter procedure Evangelista Myles CNM Work Phone: [facility]necology Comment on above: Nexplanon insertion (Primary Dx); Encounter for other general counseling or advice on contraception Start: 09-13-2023 End: 09-13-2023 Office outpatient visit 25 minutes Parviz Dobbins MD Work Phone: [facility] Comment on above: Oropharyngeal dyspha vamshi (Primary Dx); 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 Speech Therapy Comment on above: Oropharyngeal dyspha vamshi Start: 09-07-2023 End: 09-07-2023 Emergency department patient visit Jose Whitehead DO Work Phone: [facility] Comment on above: Depression, unspecif ied depression type (Primary Dx); Depression with suicidal ideation Start: 09-07-2023 End: 09-08-2023 Transcribe Orders Parviz Dobbins MD Work Phone: [facility] Comment on above: Oropharyngeal dyspha vamshi (Primary Dx) Arrived Start: 08-30-2023 End: 08-30-2023 Office outpatient new 30 minutes Parviz Dobbins MD Work Phone: [facility] [place] Comment on above: Unilateral partial p aralysis of vocal cords or larynx (Primary Dx); Oropharyngeal dysphagia; Voice fatigue Start: 08-17-2023 End: 08-21-2023 [facility] Start: 08-13-2023 End: 08-13-2023 Postop follow up visit related to original px Gilles Kim MD Work Phone: [facility] Comment on above: Aftercare following surgery for neoplasm (Primary Dx); Voice fatigue Start: 08-04-2023 End: 08-06-2023 Subsequent hospital visit by physician Gilles Kim MD Work Phone: [facility] Start: 08-03-2023 End: 08-03-2023 Office outpatient visit 15 minutes Lindsay Sherman CNP Work Phone: [facility] Gastroenterology Comment on above: Dysphagia, unspecifi ed type (Primary Dx); Odynophagia; Globus sensation Start: 07-14-2023 End: 07-14-2023 ambulatory Lindsay Sherman CNP Work Phone: [facility] Comment on above: Fatigue, unspecified type (Primary Dx); Thyroid nodule Start: 07-08-2023 End: 07-08-2023 Office outpatient visit 15 minutes Mo Kaur MD Work Phone: [facility] Comment on above: Thyroid nodule (Prim sterling Dx); Fatigue, unspecified type Start: 06-25-2023 End: 06-25-2023 ambulatory Varinder Mohr MD Work Phone: [facility] Comment on above: Sprain of ligament o f lumbosacral joint, initial encounter (Primary Dx) Start: 06-23-2023 End: 06-23-2023 Office outpatient new 45 minutes Olga Burnett Alejo CENTRAL SUPPLY MANAGER Work Phone: [facility] Comment on above: Fatigue, unspecified type (Primary Dx); Abnormal thyroid biopsy Start: 06-14-2023 End: 06-14-2023 ambulatory Varinder Mohr MD Work Phone: [facility] Comment on above: Sprain of ligament o f lumbosacral joint, initial encounter (Primary Dx) Start: 06-10-2023 End: 06-10-2023 ambulatory PROVIDER NOT IN SYSTEM [facility] Start: 06-10-2023 End: 06-10-2023 ambulatory Varinder Mohr MD Work Phone: [facility] Comment on above: Sprain of ligament o f lumbosacral joint, initial encounter (Primary Dx) Start: 06-03-2023 End: 06-03-2023 ambulatory Varinder Mohr MD Work Phone: [facility] Comment on above: Sprain of ligament o f lumbosacral joint, subsequent encounter (Primary Dx) Start: 06-01-2023 End: 06-01-2023 Postop follow up visit related to original px Varinder Mohr MD Work Phone: [facility] Comment on above: Bilateral carpal suly afsaneh syndrome (Primary Dx) Start: 05-27-2023 End: 05-27-2023 Emergency department patient visit [facility] Start: 05-23-2023 End: 05-23-2023 Emergency department patient visit [facility] Start: 05-12-2023 End: 05-12-2023 Postop follow up visit related to original px Varinder Mohr MD Work Phone: [facility] Comment on above: Bilateral carpal suly afsaneh syndrome (Primary Dx) Start: 05-06-2023 Refill Varinder Mohr MD Work Phone: [facility] Comment on above: Bilateral carpal suly afsaneh syndrome (Primary Dx) Start: 04-27-2023 Orders Only Varinder Mohr MD Work Phone: [facility] Comment on above: Radiculopathy, unspe cified spinal region (Primary Dx); Cervicalgia; Sprain of ligament of lumbosacral joint, initial encounter Bilateral carpal suly afsaneh syndrome (Primary Dx) Radiculopathy, unspe cified spinal region (Primary Dx) Start: 04-27-2023 End: 04-27-2023 Office outpatient new 30 minutes Santi Lam CENTRAL SUPPLY MANAGER Work Phone: [facility] Comment on above: Lumbar degenerative disc disease (Primary Dx); Radiculopathy, unspecified spinal region; DDD (degenerative disc disease), cervical; Bilateral carpal tunnel syndrome Start: 04-08-2023 End: 04-08-2023 Office outpatient new 30 minutes Lindsay Sherman CENTRAL SUPPLY MANAGER Work Phone: [facility] G[facility] Comment on above: Diarrhea, unspecifie d type (Primary Dx); Unintentional weight loss; Generalized abdominal pain; Nausea; Early satiety; Gastritis, presence of bleeding unspecified, unspecified chronicity, unspecified gastritis type Start: 03-07-2023 End: 03-07-2023 Emergency department patient visit Toi Burt MD Work Phone: [facility] Emergency Department Start: 08-10-2022 Telephone encounter Winston chawla DO Work Phone: [facility] Comment on above: Patient Update Start: 07-30-2022 End: 07-30-2022 Emergency department patient visit WINSTON RUIZ [facility] Start: 07-30-2022 End: 07-30-2022 Emergency department patient visit Winston Ruiz Work Phone: [facility] Emergency Department Start: 06-24-2022 End: 06-24-2022 Emergency department patient visit WINSTON RUIZ [facility] Start: 05-27-2022 ambulatory Winston Aleman son DO Work Phone: [facility] [place] Comment on above: Nausea Start: 05-27-2022 End: 05-27-2022 Patient encounter procedure Brianda Hobson TIRE INSTALLER.CENTRAL SUPPLY MANAGER Work Phone: [facility] [place] Comment on above: Nausea (Primary Dx); Generalized abdominal pain; Weight loss, unintentional; Medical marijuana use; Fatigue, unspecified type; Early satiety; Bloating; Anxiety with depression Start: 04-13-2022 Refill Sujatha pacheco TIRE INSTALLER.CENTRAL SUPPLY MANAGER Work Phone: [facility] [place] Comment on above: Refill Request Start: 02-23-2022 End: 02-23-2022 Patient encounter procedure Jennifer Marinelli TIRE INSTALLER.CENTRAL SUPPLY MANAGER Work Phone: OB/Gynecology Comment on above: Encounter for gyneco logical examination (general) (routine) without abnormal findings (Primary Dx); Screening for cervical cancer; Encounter for screening for human papillomavirus (HPV) Bilateral carpal suly afsaneh syndrome (Primary Dx) Start: 02-23-2022 End: 02-23-2022 Patient encounter status Jennifer Marinelli APRN.CENTRAL SUPPLY MANAGER Work Phone: OB/Gynecology Start: 02-17-2022 End: 02-17-2022 Patient encounter procedure Jennifer Marinelli TIRE INSTALLER.CENTRAL SUPPLY MANAGER Work Phone: OB/Gynecology Comment on above: Breast pain (Primary Dx); Pelvic pain in female Start: 02-13-2022 Telephone encounter Sujatha rodriguez TIRE INSTALLER.CENTRAL SUPPLY MANAGER Work Phone: [facility] [place] Comment on above: Results Start: 01-02-2022 End: 01-02-2022 Patient encounter procedure Lizandro Medeiros MD Work Phone: General Surgery Comment on above: Diarrhea, unspecifie d type (Primary Dx); Anal prolapse; Abnormal weight loss Start: 01-01-2022 Telephone encounter Winston chawla DO Work Phone: [facility] [place] Comment on above: Patient Update Start: 12-31-2021 Telephone encounter Winston chawla DO Work Phone: [facility] [place] Comment on above: Patient Update Start: 12-31-2021 End: 12-31-2021 Emergency department patient visit PABLO NAYLOR MD [facility] Start: 12-30-2021 Telephone encounter Salena Solis MD Work Phone: OB/Gynecology Comment on above: Patient Question Start: 12-26-2021 Telephone encounter Winston chawla DO Work Phone: [facility] [place] Comment on above: Vomiting Start: 12-24-2021 End: 12-24-2021 Patient encounter procedure Winston Ruiz DO Work Phone: [facility] [place] Comment on above: Diarrhea, unspecifie d type (Primary Dx); Hypokalemia; Vitamin B12 deficiency; Folate deficiency; Fatigue, unspecified type Start: 12-23-2021 Telephone encounter Winston chawla DO Work Phone: [facility] [place] Comment on above: Results Start: 12-19-2021 ambulatory Winston stapleton DO Work Phone: [facility] [place] Comment on above: Vitamin d ? Start: 12-19-2021 Telephone encounter Winston chawla DO Work Phone: [facility] [place] Comment on above: Results Start: 12-10-2021 Telephone encounter Winston chawla DO Work Phone: [facility] [place] Comment on above: Results Start: 12-09-2021 End: 12-09-2021 Subsequent hospital visit by physician Alyssa [facility] [place] Moy Work Phone: Radiology Comment on above: Acute nonintractable headache, unspecified headache type [R51.9] Start: 12-09-2021 ambulatory Winston Aleman son DO Work Phone: [facility] [place] Comment on above: Headache Start: 11-26-2021 End: 11-26-2021 Nursing evaluation of patient and report Nurse Abstract Manager [facility] Work Phone: OB/Gynecology Comment on above: Encounter for manage ment and injection of depo-Provera (Primary Dx) Start: 11-17-2021 End: 11-17-2021 Patient encounter procedure Lizandro Medeiros MD Work Phone: General Surgery Comment on above: Diarrhea, unspecifie d type (Primary Dx); Helicobacter pylori gastritis; Gastroesophageal reflux disease, unspecified whether esophagitis present; Anal prolapse Start: 11-10-2021 End: 11-10-2021 Subsequent hospital visit by physician Lizandro Medeiros MD Work Phone: Ambulatory Surgery Comment on above: Helicobacter pylori gastritis [K29.70, B96.81] Start: 11-03-2021 ambulatory Christina saez TIRE INSTALLER.CENTRAL SUPPLY MANAGER Work Phone: Psychiatry Comment on above: Questions... Start: 10-30-2021 End: 10-30-2021 Patient encounter procedure Christina Manuel TIRE INSTALLER.CENTRAL SUPPLY MANAGER Work Phone: Psychiatry Comment on above: Bipolar 2 disorder ( HCC) (Primary Dx); MG (generalized anxiety disorder); Chronic post-traumatic stress disorder (PTSD); Borderline personality disorder (HCC) Start: 10-27-2021 ambulatory Winston stapleton DO Work Phone: [facility] [place] Comment on above: Chest Pain; Abdomina l Pain Start: 10-10-2021 Telephone encounter Lizandro meredith MD Work Phone: General Surgery Comment on above: 11-10-2021 Colon EGD [facility] Start: 02-05-2021 End: 02-05-2021 Subsequent hospital visit by physician Alyssa [facility] [place] Work Phone: Radiology Comment on above: SOB (shortness of br eath) [R06.02] Start: 03-11-2020 End: 03-11-2020 Subsequent hospital visit by physician Nabeel Zapata Work Phone: [facility] Start: 12-27-2019 End: 12-27-2019 Patient encounter procedure VALERI MELENDEZ [facility] Start: 09-19-2018 End: 09-19-2018 Patient encounter procedure NICHOLAS [facility] Start: 04-30-2018 End: 04-30-2018 [facility] Procedures Date Procedure Procedure Detail Performing Clinician Start: 10-06-2024 Removal of nonbiodegradable drug delivery device Tory Vela MD Work Phone: Start: 08-21-2024 Urine test visual color cmprsn meths Tory Vela MD Work Phone: Start: 08-21-2024 ENDOMETRIAL BIOPSY Tory Vela MD Work Phone: Start: 01-28-2024 Mri any jt lower extrem w/o contrast matrl Power Parker MD Work Phone: Start: 01-11-2024 Dup-scan xtr veins unilateral/limited study Zora Ugalde DO Work Phone: Start: 12-08-2023 Thyrotropin [Units/volume] in Serum or Plasma [facility] Start: 09-28-2023 Urine test visual color cmprsn meths Evangelista SPARKS Work Phone: Start: 09-07-2023 DRUG SCREEN,URINE [facility] Start: 09-07-2023 HCG, URINE, QUALITATIVE [facility] Start: 09-07-2023 CBC W Auto Differential panel - Blood [facility] Start: 09-07-2023 SARS-COV-2 AND INFLUENZA A/B PCR [facility] Start: 09-07-2023 ECG 12-LEAD [facility] Start: 09-07-2023 ACUTE TOXICOLOGY PANEL, BLOOD [facility] Start: 09-07-2023 Comprehensive metabolic 2000 panel - Serum or Plasma [facility] Start: 09-07-2023 TSH WITH REFLEX TO FREE T4 IF ABNORMAL [facility] Start: 09-07-2023 XR CHEST 1 VIEW [facility] Start: 09-07-2023 Drug tst prsmv instrmnt chem analyzers pr date Yasmin AUGUSTECENTRAL SUPPLY MANAGER Work Phone: Start: 09-07-2023 Urine test visual color cmprsn meths [facility]min Arteaga [facility] Work Phone: Start: 09-07-2023 Influenza virus A and B and SARS-CoV-2 (COVID-19) identified in Respiratory specimen by ALEJANDRA with probe detection Yasmin Arteaga [facility] Work Phone: Start: 09-07-2023 Ecg routine ecg w/least 12 lds trcg only w/o i&r Yasmin [facility]teaga [facility] Work Phone: Start: 09-07-2023 ACUTE TOXICOLOGY PANEL, BLOOD Yasmin rodriguez [facility] Work Phone: Start: 09-07-2023 End: 09-07-2023 Comprehensive metabolic panel Yasmin rodriguez [facility] Work Phone: Start: 09-07-2023 Radiologic exam chest single view Felecia Arteaga [facility] Work Phone: Start: 08-05-2023 Basic metabolic panel calcium total Gilles Kim MD Work Phone: Start: 08-04-2023 End: 08-04-2023 THYROIDECTOMY Gilles Kim MD Work Phone: Start: 08-04-2023 detection examination Gilles Kim MD Work Phone: Start: 07-14-2023 End: 07-14-2023 Cortisol total Mo Kaur MD Work Phone: Start: 07-14-2023 Acth stimulation panel adrenal insufficiency Mo Kaur MD Work Phone: Start: 05-27-2023 CT ANGIO CHEST FOR PULMONARY EMBOLISM [facility] Start: 05-27-2023 ECG 12-LEAD [facility] Start: 05-27-2023 XR CHEST 1 VIEW [facility] Start: 05-27-2023 Comprehensive metabolic 2000 panel - Serum or Plasma [facility] Start: 05-27-2023 Lipase [Enzymatic activity/volume] in Serum or Plasma [facility] Start: 05-27-2023 Thyrotropin [Units/volume] in Serum or Plasma [facility] Start: 05-27-2023 URINALYSIS MICROSCOPIC WITH REFLEX CULTURE [facility] Start: 05-27-2023 URINALYSIS WITH REFLEX MICROSCOPIC AND CULTURE [facility] Start: 05-27-2023 CBC W Auto Differential panel - Blood [facility] Start: 05-27-2023 D-DIMER, NON VTE [facility] Start: 05-27-2023 SEDIMENTATION RATE, AUTOMATED [facility] Start: 05-27-2023 TROPONIN I, HIGH SENSITIVITY [facility] PAYTON NAGI Start: 05-23-2023 NURSING COMMUNICATION - DO NOT USE IN ORDER SETS [facility] Start: 05-23-2023 XR HUMERUS LEFT [facility] Start: 05-23-2023 XR ELBOW LEFT 1-2 VIEWS [facility] Start: 03-22-2023 Microscopic observation [Identifier] in Cervix by Cyto stain Lindsay Sherman CNP Work Phone: Start: 03-07-2023 Ct abdomen & pelvis w/o contrast material Toi Burt MD Work Phone: Start: 03-07-2023 Urinalysis, reagent strip without microscopy Toi Burt MD Work Phone: Start: 03-07-2023 Complete blood count with white cell differential, automated Toi Burt MD Work Phone: Start: 03-07-2023 Comprehensive metabolic panel Toi villa MD Work Phone: Start: 06-24-2022 VAGINAL EXAM WINSTON RUIZ Start: 06-24-2022 Blood count complete auto&auto difrntl wbc WINSTON SHERMANRISON Start: 06-24-2022 Urinalysis microscopic only WINSTON ALEMAN SON Start: 06-23-2022 Urine test visual color cmprsn meths WINSTON RUIZ Start: 05-27-2022 End: 05-27-2022 Urnls dip stick/tablet rgnt auto w/o microscopy Brianda Hobson TIRE INSTALLER.CENTRAL SUPPLY MANAGER Work Phone: Start: 02-23-2022 Microscopic observation [Identifier] in Cervix by Cyto stain Winston Ruiz Work Phone: Start: 12-09-2021 Radex spine cervical 4 or 5 views Winston Ruiz DO Work Phone: Start: 12-09-2021 Ct head/brain w/o & w/contrast material Winston Ruiz DO Work Phone: Start: 11-10-2021 Esophagogastroduodenoscopy transoral diagnostic Lizandro Medeiros MD Work Phone: Start: 11-10-2021 Colonoscopy flx dx w/collj spec when pfrmd Lizandro Medeiros MD Work Phone: Start: 02-05-2021 Radiologic exam chest 2 views Hortensia dempsey TIRE INSTALLER.CENTRAL SUPPLY MANAGER Work Phone: Carpal tunnel syndrome (disorder) HARRIET MAST TIRE INSTALLER-CENTRAL SUPPLY MANAGER H/O: hysterectomy History of hysterectomy HARRIET MAST TIRE INSTALLER-CENTRAL SUPPLY MANAGER History of thyroidectomy S/P thyroidectom y Mo Vincent Kaur MD Work Phone: History of thyroidectomy S/P com plete thyroidectomy Power Parekr MD Work Phone: Hysterectomy HARRIET MAST TIRE INSTALLER-CENTRAL SUPPLY MANAGER Comment on above: 09/2024 Thyroidectomy HARRIET MAST TIRE INSTALLER-CENTRAL SUPPLY MANAGER Plan of Treatment Date Care Activity Detail Author Start: 2034 Zoster Vaccines (1 of 2) Zoster Vaccines (1 of 2) [facility] Start: 10-12-2033 Tetanus vaccination Tetanus: Every 10yrs [facility] Start: 10-12-2033 Urine microalbumin profile DTaP,Tdap,Td Vaccine (2 - T d or Tdap) [facility] Start: 03-22-2028 Screening for malignant neoplasm of cervix [facility] Start: 03-21-2027 Screening for malignant neoplasm of cervix Cervical Cancer Screening [facility] Comment on above: Postponed from 03/22/2024 (Postponed - N ot Clinically Indicated) Start: 02-23-2027 HPV TESTING HPV TESTING [facility] Start: 02-23-2027 PAP TESTING PAP TESTING [facility] Start: 03-22-2026 Screening for malignant neoplasm of cervix Pap Smear [facility] Start: 04-03-2025 End: 04-03-2025 Patient encounter procedure 04/03/2025 11:00 AM EDT Office Visit [facility] Gastroenterology [address] [place] [address] Lindsay Sherman, CENTRAL SUPPLY MANAGER [address] [place] [address] [facility] Gastroenterology Start: 03-26-2025 End: 03-26-2025 Patient encounter procedure 03/26/2025 9:00 AM EDT Office Visit [facility] [address] [place] [phone] Adilia Clayton, CENTRAL SUPPLY MANAGER [address] [place] [address] [facility] Start: 03-19-2025 End: 03-19-2025 Patient encounter procedure 03/19/2025 11:00 AM EDT Office Visit [address] [phone] Jose A Dougherty, CENTRAL SUPPLY MANAGER [facility] [place] [address] [facility] Start: 03-12-2025 End: 03-12-2025 Admission to same day surgery center 03/12/2025 9:20 AM EDT - 03/12/2025 9:50 AM EDT Surgery [facility] Periop [address] [place] [address] Brandon Norton MD [address] [place] [address] ESOPHAGOGASTRODUODENOSCOPY [facility] Periop Comment on above: ESOPHAGOGASTRODUODENOSCOPY Start: 03-12-2025 End: 03-12-2025 Egd transoral biopsy single/multiple ESOPHAGOGASTRODUODENOSCOPY Dysphagia, unspecified type Nausea and vomiting, unspecified vomiting type Diarrhea, unspecified type 03/12/2025 9:[address] [facility] Start: 03-12-2025 Subsequent hospital visit by physician 03/12/2025 9:20 AM EDT Hospital Encounter [facility] Periop [address] [place] [address] Brandon Norton MD [address] [place] [address] [facility] Start: 03-02-2025 Annual PCP Team Chronic Disease Visit Annual PCP Team Chronic Disease Visit [facility] Start: 03-02-2025 BP Controlled (<130/80) BP Controlled (<130/80) [facility] Start: 02-23-2025 Screening for malignant neoplasm of cervix [facility] Start: 12-09-2024 Depression Remission Assessment (PHQ9) Depression Remission Assessment (PHQ9) [facility] Start: 10-06-2024 End: 10-06-2024 Follow-up encounter 10/06/2024 1:30 PM EST Follow-Up [facility] Ob[facility]s [facility]necology [address] [place] [phone] Tory Vela MD [address] [place] [phone] [facility] Start: 10-03-2024 End: 10-03-2024 Patient encounter procedure 10/03/2024 2:00 PM EST Office Visit [facility] [address] [place] [address] Parviz Dobbins MD [address] [place] [id number] [facility] Start: 09-29-2024 End: 09-29-2024 Patient encounter procedure 09/29/2024 2:00 PM EST Office Visit [facility] [address] [place] [phone] Adilia Clayton, CENTRAL SUPPLY MANAGER [address] [place] [address] [facility] Start: 09-21-2024 End: 09-21-2024 Follow-up encounter 09/21/2024 1:30 PM EST Follow-Up [facility] Ob[facility]etrics [facility] Gynecology [address] [place] [phone] Tory Vela MD [address] [address] [facility] Obstetrics and Gynecology Start: 09-12-2024 End: 09-12-2024 Patient encounter procedure 09/12/2024 11:40 AM EST [facility] [address] [place] [address] Carlos Browne MD [facility] [place] [address] [facility] Comment on above: thyroid Start: 09-12-2024 End: 09-12-2024 Admission to same day surgery center 09/12/2024 10:27 AM EST - 09/12/2024 12:[address] [facility] [address] [place] [phone] Tory Vela MD [address] [address] HYSTERECTOMY ROBOTIC XI WITH BILATERAL SALPINGECTOMY [facility] Comment on above: HYSTERECTOMY ROBOTIC XI WITH BILATERAL S ALPINGECTOMY Start: 09-12-2024 End: 09-12-2024 Laparoscopy tot hysterectomy >250 g w/tube/ovar HYSTERECTOMY ROBOTIC XI WITH BILATERAL SALPINGECTOMY Abnormal uterine bleeding 09/12/2024 10:[address] [facility] Main OR Start: 09-12-2024 Subsequent hospital visit by physician [facility] Start: 09-02-2024 End: 12-02-2024 Thyroglobulin and Thyrogobulin Ab panel - Serum or Plasma THYROGLOBULIN, SERUM WITH REFLEX TO IA OR LC-MS/MS Lab Routine Papillary microcarcinoma of thyroid (HCC) Expected: 09/02/2024, Expires: 12/02/[address] [facility] Comment on above: Expected: 09/02/2024, Expires: Start: 09-02-2024 End: 12-02-2024 Thyrotropin [Units/volume] in Serum or Plasma THYROID STIMULATING HORMONE Lab Routine Postoperative hypothyroidism Expected: 09/02/2024 (Approximate), Expires: 12/02/2024 [facility] Work Phone: Comment on above: Expected: 09/02/2024 (Approximate), Expi res: 12/02/2024 Start: 09-02-2024 End: 12-02-2024 Thyroxine (T4) free [Mass/volume] in Serum or Plasma T4 FREE/FREE THYROXINE Lab Routine Postoperative hypothyroidism Expected: 09/02/2024 (Approximate), Expires: 12/02/[address] [facility] Comment on above: Expected: 09/02/2024 (Approximate), Expi res: 12/02/2024 Start: 08-31-2024 End: 08-31-2024 Patient encounter procedure 08/31/2024 2:00 PM EST Office Visit [facility] Preadmission Testing [place] [address] Discharge Disposition: Home [facility] Preadmission Testing Start: 08-24-2024 End: 08-24-2024 Patient encounter procedure 08/24/2024 1:40 PM EST Office Visit [facility] [address] [place] [address] Michelle Rain CNP [address] [place] [address] [facility] Start: 08-21-2024 End: 08-21-2024 Patient encounter procedure 08/21/2024 3:15 PM EST Procedure visit [facility] Obstetrics and Gynecology [address] [address] Tory Vela MD [address] [facility] [address] [address] [facility] Obstetrics and Gynecology Start: 08-14-2024 End: 08-14-2024 Patient encounter procedure 08/14/2024 9:15 AM EST Office Visit [facility] [address] [facility], [address] [place] [phone] Gilles Kim MD 335 [facility] [address] [address] [facility] Start: 08-10-2024 End: 08-10-2024 Patient encounter procedure 08/10/2024 2:30 PM EST Procedure visit [facility] Obstetrics and Gynecology [address] [address] Tory Vela MD 335 [facility] [address] [address] [facility] Obstetrics and Gynecology Start: 08-09-2024 End: 08-09-2024 Patient encounter procedure 08/09/2024 10:00 AM EST Office Visit [facility] [address] [place] [address] Michelle Rain CENTRAL SUPPLY MANAGER [address] [place] [address] [facility] Start: 07-06-2024 End: 07-06-2024 Patient encounter procedure 07/06/2024 11:30 AM EST Office Visit [facility] Obstetrics and Gynecology [address] [phone] vEangelista Myles, [facility] [address] [place] [address] Tory Vela MD [address] [address] [facility] Obstetrics and Gynecology Start: 07-06-2024 End: 07-06-2024 Professional / ancillary services management 07/06/2024 11:00 AM EST Ancillary Procedure [facility] Obstetrics and Gynecology [address] [phone] Evangelista Myles, [facility] [address] [place] [address] [facility] Obstetrics and Gynecology Start: 06-27-2024 End: 06-20-2025 US Pelvis transvaginal US Transvaginal Imaging Routine Abnormal uterine bleeding Expected: 06/27/2024, Expires: 06/20/2025 [facility] Work Phone: Comment on above: Expected: 06/27/2024, Expires: Start: 06-26-2024 End: 06-26-2024 Patient encounter procedure [facility] Start: 06-22-2024 End: 06-22-2024 Patient encounter procedure 06/22/2024 11:20 AM EST Office Visit [facility] [address] [place] [address] Michelle Rain, BEATRICE [address] [place] [address] [facility] Start: 06-01-2024 End: 06-01-2024 Patient encounter procedure 06/01/2024 10:00 AM EDT Office Visit [facility] [address] [place] [address] Varinder Patel DO [address] [place] [address] Return in about 3 months (around 06/02/2024), or Please have patient sign records request form.. [facility] Comment on above: Return in about 3 months (around 06/02/20 24), or Please have patient sign records request form.. Start: 05-17-2024 End: 08-16-2024 Hemoglobin A1c in Blood HEMOGLOBIN A1C Lab Routine Impaired fasting blood sugar Expected: 05/17/2024, Expires: 08/16/2024 [facility] Work Phone: Comment on above: Expected: 05/17/2024, Expires: Start: 05-17-2024 End: 08-16-2024 Lipid 1996 panel - Serum or Plasma LIPID PANEL BASIC Lab Routine Hypertriglyceridemia Expected: 05/17/2024, Expires: 08/16/[address] [facility] Comment on above: Expected: 05/17/2024, Expires: Start: 05-03-2024 End: 05-03-2024 Patient encounter procedure Rheumatology Comment on above: joint pain Start: 04-28-2024 End: 04-28-2024 Patient encounter procedure 04/28/2024 10:00 AM EDT Office Visit Endocrinology [address] [place] [address] Robyn Baum MD [address] [place] [address] hypothyroidism Endocrinology Comment on above: hypothyroidism Start: 2024 End: 2024 Patient encounter procedure 2024 3:30 PM EDT Office Visit [facility] [address] [place] [address] [place] [phone] Mo Kaur MD [address] [place] [address] [facility] Start: 2024 Screening for malignant neoplasm of breast [facility] Start: 04-17-2024 End: 04-17-2024 Patient encounter procedure 04/17/2024 11:[address] [facility]ound [address] [place] [phone] Mo Kaur MD [address] [place] [address] [facility] Start: 04-13-2024 End: 04-13-2024 Patient encounter procedure 04/13/2024 1:25 PM EDT Office Visit [facility] [address] [place] [phone] Anjali Hernandez PA-C [address] [place], [place] [phone] Gastroparesis - records sent to scanning [facility] Comment on above: Gastroparesis - records sent to scanning Start: 04-02-2024 Covid-19 Vaccine ( season) Covid-19 Vaccine () [facility] Start: 04-02-2024 Covid-19 Vaccine ( season) Covid-19 Vaccine ( season) [facility] Start: 04-02-2024 Influenza vaccination [facility] Start: 04-02-2024 End: 10-18-2024 Thyroid hormone tests Thyroglobulin Tumor Marker with Thyroglobulin Antibody Lab Routine S/P thyroidectomy Thyroid cancer (HCC) Hypothyroidism, unspecified type Expected: 04/02/2024, Expires: 10/18/2024 [facility] Comment on above: Expected: 04/02/2024, Expires: Start: 04-02-2024 End: 10-18-2024 Thyrotropin [Units/volume] in Serum or Plasma TSH with Reflex Free T4 Lab Routine S/P thyroidectomy Thyroid cancer (HCC) Hypothyroidism, unspecified type Expected: 04/02/2024, Expires: 10/18/2024 [facility] Comment on above: Expected: 04/02/2024, Expires: Start: 04-02-2024 End: 10-18-2024 US Head and neck soft tissue US Soft Tissue Neck and Thyroid Imaging Routine S/P thyroidectomy Thyroid cancer (HCC) Hypothyroidism, unspecified type Expected: 04/02/2024, Expires: 10/18/2024 [facility] Comment on above: Expected: 04/02/2024, Expires: Start: 03-22-2024 History and physical examination, annual for health maintenance Wellness Visit [facility] Start: 03-22-2024 Screening for malignant neoplasm of cervix Cervical Cancer Screening [facility] Start: 03-21-2024 End: 03-21-2024 Patient encounter procedure 03/21/2024 1:20 PM EDT Office Visit [facility] 2] [address] [address] [place] [address] [place] [address] [facility] Comment on above: Right ankle Start: 03-13-2024 End: 03-13-2024 Patient encounter procedure 03/13/2024 1:45 PM EDT Office Visit [facility] [address] [place] [address] Parviz Dobbins MD [address] [address] [facility] [place] Start: 03-09-2024 End: 03-09-2024 Patient encounter procedure 03/09/2024 3:15 PM EDT Office Visit OB/Gynecology [address] [place] [address] Opal Cisneros MD [address] [place] [address] EST Prolonged menstrual (nexplanon) OB/Gynecology Comment on above: EST Prolonged menstrual (nexplanon) Start: 03-03-2024 End: 03-03-2024 ambulatory 03/03/2024 9:30 AM EDT OT/PT/Speech Visit [facility] [address] [place] [address] Lori Jeffers, PT, DPT [address] [place] [address] 30vis max/pnr [facility] Comment on above: 30vis max/pnr Start: 03-02-2024 End: 06-01-2024 Magnesium [Mass/volume] in Serum or Plasma MAGNESIUM Lab Routine Hypokalemia Expected: 03/02/2024, Expires: 06/01/[address] [facility] Comment on above: Expected: 03/02/2024, Expires: Start: 03-02-2024 End: 08-29-2024 Thyroxine (T4) free [Mass/volume] in Serum or Plasma T4 FREE/FREE THYROXINE Lab Routine Postoperative hypothyroidism Expected: 03/02/2024 (Approximate), Expires: 08/29/[address] [facility] Comment on above: Expected: 03/02/2024 (Approximate), Expi res: 08/29/2024 Start: 03-02-2024 End: 08-29-2024 Triiodothyronine (T3) [Mass/volume] in Serum or Plasma T3 Lab Routine Postoperative hypothyroidism Expected: 03/02/2024 (Approximate), Expires: 08/29/[address] [facility] Comment on above: Expected: 03/02/2024 (Approximate), Expi res: 08/29/2024 Start: 03-02-2024 End: 03-02-2024 Patient encounter procedure 03/02/2024 8:20 AM EDT Office Visit [facility] [address] [place] [address] Varinder Patel, [address] [place], [place] [id number] Establish care with cancer thyroid [facility] Comment on above: Establish care with cancer thyroid Start: 02-22-2024 End: 05-23-2024 MELODY BY IFA WITH REFLEX MELODY BY IFA WITH REFLEX Lab Routine Calf swelling Tenosynovitis of right ankle Expected: 02/22/2024, Expires: 05/23/[address] [facility] Comment on above: Expected: 02/22/2024, Expires: Start: 02-22-2024 End: 05-23-2024 C reactive protein [Mass/volume] in Serum or Plasma C-REACTIVE PROTEIN Lab Routine Calf swelling Tenosynovitis of right ankle Expected: 02/22/2024, Expires: 05/23/[address] [facility] Comment on above: Expected: 02/22/2024, Expires: Start: 02-22-2024 End: 05-23-2024 Cyclic citrullinated peptide IgG Ab [Units/volume] in Serum or Plasma CCP ANTIBODY IGG Lab Routine Calf swelling Tenosynovitis of right ankle Expected: 02/22/2024, Expires: 05/23/[address] [facility] Comment on above: Expected: 02/22/2024, Expires: Start: 02-22-2024 End: 05-23-2024 Erythrocyte sedimentation rate SEDIMENTATION RATE, WESTERGREN Lab Routine Calf swelling Tenosynovitis of right ankle Expected: 02/22/2024, Expires: 05/23/2024 [facility] Work Phone: Comment on above: Expected: 02/22/2024, Expires: Start: 02-22-2024 End: 05-23-2024 Rheumatoid factor [Units/volume] in Serum or Plasma RHEUMATOID FACTOR Lab Routine Calf swelling Tenosynovitis of right ankle Expected: 02/22/2024, Expires: 05/23/[address] [facility] Comment on above: Expected: 02/22/2024, Expires: Start: 02-22-2024 End: 02-22-2024 Patient encounter procedure 02/22/2024 9:20 AM EDT Office Visit [facility] 2] [address] [address] [place] [address] [place] [address] review MRI [facility][Note 2] Comment on above: review MRI Start: 02-01-2024 End: 02-01-2024 Patient encounter procedure 02/01/2024 10:20 AM EDT Office Visit [facility] [place] 2] [address] [address] [place] [address] [place] [address] right foot [facility][Note 2] Comment on above: right foot Start: 01-28-2024 End: 01-28-2024 Patient encounter procedure 01/28/2024 7:30 AM EDT Appointment Radiology [address] [place] [address] Acute right ankle pain [M25.571] Radiology Comment on above: Acute right ankle pain [M25.571] Start: 12-24-2023 COVID-19 Vaccine (#1) COVID-19 Vaccine (#1) [facility] Comment on above: Postponed from 1984 (Patient Refus ed) Postponed from 04/24 (Patient Refused) Start: 12-24-2023 Medicare Wellness Visit Medicare Wellness Visit [facility] Start: 12-24-2023 Tetanus vaccination Tetanus: Every 10yrs [facility] Comment on above: Postponed from 1984 (Insurance / F inancial) Start: 12-06-2023 End: 12-06-2023 Patient encounter procedure 12/06/2023 10:00 AM EDT Office Visit [facility] [address] [place] [address] Michelle Rain, BEATRICE [address] [place] [address] [facility] Start: 11-16-2023 End: 11-16-2023 Patient encounter procedure 11/16/2023 10:00 AM EDT Office Visit [facility] [address] [place] [phone] Adilia Clayton, BEATRICE [address] [place] [address] [facility] Start: 10-20-2023 End: 10-20-2023 Patient encounter procedure 10/20/2023 12:40 PM EDT Office Visit [facility] [address] [place] [address] Michelle Rain, CENTRAL SUPPLY MANAGER [address] [place] [address] [facility] Start: 10-19-2023 End: 10-19-2023 Patient encounter procedure [facility] Start: 10-11-2023 End: 10-11-2023 Patient encounter procedure 10/11/2023 10:00 AM EDT Office Visit [facility] [address] [place] [address] Parviz Dobbins MD [address] [place] [address] [facility] Start: 10-06-2023 End: 10-06-2023 Clinical Support 10/06/2023 11:00 AM EST Clinical Support [facility] [address] [place] [address] Tod Lara LSW [facility] Start: 10-04-2023 End: 10-04-2023 Patient encounter procedure 10/04/2023 9:30 AM EST Office Visit [facility] Gastroenterology [address] [place] [phone] Lindsay Sherman, CENTRAL SUPPLY MANAGER [address] [place] [address] [facility] G[facility]enter[facility] Start: 09-21-2023 End: 09-21-2023 Patient encounter procedure [facility] Start: 09-17-2023 End: 09-17-2023 ambulatory 09/17/2023 9:[address] [facility] [address] [place] [address] Parviz Dobbins MD [address] [place] [address] Sammie Livingston, [employer] Discharge Disposition: Home [facility] Start: 09-13-2023 End: 09-13-2023 Patient encounter procedure 09/13/2023 2:00 PM EST Office Visit [facility] [address] [place] [phone] Parviz Dobbins MD [address] [address] [facility] Start: 09-09-2023 End: 09-09-2023 ambulatory 09/09/2023 1:[address] [facility] [address] [place] [address] Parviz Dobbins MD [address] [address] Kelin Corbett, [employer] W[employer] Discharge Disposition: Home [facility] Start: 09-07-2023 End: 09-07-2023 Patient encounter procedure 09/07/2023 11:30 AM EST Office Visit [facility] [address] [place] [phone] Adilia Clayton, CENTRAL SUPPLY MANAGER [address] [place] [address] [facility] Start: 09-02-2023 End: 09-02-2023 Patient encounter procedure 09/02/2023 10:[address] [facility] [address] [place] [address] Lindsay Sherman, CENTRAL SUPPLY MANAGER [address] [place] [address] [facility] Start: 08-30-2023 End: 08-30-2023 Patient encounter procedure 08/30/2023 1:45 PM EST Office Visit [facility] [address] [place] [address] Parviz Dobbins MD [address] [place] [address] [facility] Start: 08-23-2023 End: 08-23-2023 Social Work [facility] Start: 08-17-2023 End: 08-17-2023 Patient encounter procedure 08/17/2023 3:30 PM EST Office Visit [facility] [address] [place] [phone] Adilia Clayton, BEATRICE [address] [place] [address] [facility] Start: 08-13-2023 End: 08-13-2023 Patient encounter procedure 08/13/2023 10:45 AM EST Office Visit [facility] [address] [place] [address] Medical Office Building, 5th [place] [address] Gilles Kim MD 335 Axeljacqueline Carpenter [address] [address] [facility] Start: 08-04-2023 End: 08-04-2023 Admission to same day surgery center 08/04/2023 11:50 AM EST - 08/04/2023 3:[address] [facility] [address] [place] [address] Gilles Kim MD [address] [address] TOTAL THYROIDECTOMY [facility] Comment on above: TOTAL THYROIDECTOMY Start: 08-04-2023 Subsequent hospital visit by physician 08/04/2023 11:50 AM EST Hospital Encounter [facility] [address] [place] [phone] Gilles Kim MD 335 [facility] [address] [place] [address] [facility] Start: 08-04-2023 End: 08-04-2023 THYROIDECTOMY THYROIDECTOMY Thyroid nodule 08/04/2023 11:50 AM EST [facility] Start: 08-03-2023 End: 08-03-2023 Patient encounter procedure 08/03/2023 10:30 AM EST Office Visit [facility] Gastroenterology [address] [place] [address] Lindsay Sherman, CENTRAL SUPPLY MANAGER [address] [place] [address] [facility] Gastroenterology Start: 07-23-2023 End: 07-23-2023 Patient encounter procedure 07/23/2023 1:00 PM EST Office Visit [facility] 335 [facility] Medical Office Building, 5th [place] [phone] Mo Kaur MD [address] [place] [address] Gilles Kim MD 335 [facility] [address] [place] [address] [facility] Start: 07-20-2023 End: 07-20-2023 Patient encounter procedure [facility] Start: 07-14-2023 End: 07-14-2023 Patient encounter procedure 07/14/2023 10:20 AM EST Office Visit [facility] [address] [place] [address] Olga Dhillon, CENTRAL SUPPLY MANAGER [address] [place] [address] [facility] Start: 07-05-2023 End: 07-05-2023 Social Work 07/05/2023 8:00 AM EST Social Work [address] [address] Samir Atwood LISW [facility] Start: 07-01-2023 End: 07-01-2023 Patient encounter procedure 07/01/2023 8:20 AM EST Office Visit [address] [address] Olga Dhillon, CENTRAL SUPPLY MANAGER [address] [place] [address] [facility] Start: 06-28-2023 End: 06-28-2023 ambulatory 06/28/2023 9:15 AM EST [facility] [address] [place] [address] Varinder Mohr MD [address] [place] [address] Marilee Montalvo, PT [facility] Start: 06-25-2023 End: 06-25-2023 ambulatory 06/25/2023 8:30 AM EST Treatment [facility] [address] [place] [address] Varinder Mohr MD [address] [place] [address] Jnenifer Daniels PTA [facility] Start: 06-21-2023 End: 06-21-2023 ambulatory [facility] Start: 06-17-2023 End: 06-17-2023 ambulatory [facility] Start: 06-14-2023 End: 06-14-2023 Patient encounter procedure 06/14/2023 10:00 AM EST Office Visit [facility] [address] [place] [address] Olga Dhillon, CENTRAL SUPPLY MANAGER [address] [place] [address] [facility] Start: 06-14-2023 End: 06-14-2023 ambulatory [facility] Start: 06-10-2023 End: 06-10-2023 ambulatory 06/10/2023 8:30 AM EST Treatment [facility] [address] [place] [address] Varinder Mohr MD [address] [place] [address] Dean Burt PTA [facility] Start: 06-08-2023 End: 06-08-2023 Patient encounter procedure 06/08/2023 9:[address] [facility] Ultrasound [address] [place] [address] Santi Lam, CENTRAL SUPPLY MANAGER [address] [place] [address] [facility] Start: 06-07-2023 End: 06-07-2023 ambulatory [facility] Start: 06-03-2023 End: 06-03-2023 ambulatory 06/03/2023 8:30 AM EDT Treatment [facility] [address] [place] [address] Varinder Mohr MD [address] [place] [address] Dean Burt PTA Discharge Disposition: Home [facility] Start: 05-27-2023 ANNUAL PCP TEAM CHRONIC DISEASE VISIT ANNUAL PCP TEAM CHRONIC DISEASE VISIT [facility] Start: 05-25-2023 End: 05-25-2023 ambulatory 05/25/2023 8:30 AM EDT Evaluation [facility] [address] [place] [phone] Varinder Mohr MD [address] [place] [address] Franko Monroe, LIDIA Discharge Disposition: Home [facility] Start: 05-14-2023 End: 05-14-2023 Admission to same day surgery center 05/14/2023 11:50 AM EDT - 05/14/2023 12:[address] [facility] [address] [place] [phone] Brandon Norton MD [address] [place] [address] [facility] Comment on above: COLONOSCOPY Start: 05-14-2023 End: 05-14-2023 Colonoscopy COLONOSCOPY Diarrhea, unspecified type Unintentional weight loss Generalized abdominal pain 05/14/2023 11:50 AM EDT [facility] Start: 05-14-2023 Subsequent hospital visit by physician 05/14/2023 11:50 AM EDT Hospital Encounter [facility] [address] [place] [phone] Brandon Norton MD [address] [place] [address] [facility] Start: 05-12-2023 End: 05-12-2023 Patient encounter procedure 05/12/2023 10:15 AM EDT Office Visit [facility] [address] [place] [address] [place] [phone] Varinder Mohr MD [address] [place] [address] [facility] Start: 05-04-2023 End: 05-04-2023 Patient encounter procedure [facility] Start: 05-03-2023 End: 05-03-2023 Patient encounter procedure 05/03/2023 10:40 AM EDT Office Visit [facility] [address] [place] [address] Santi Lam, CENTRAL SUPPLY MANAGER [address] [place] [address] [facility] Start: 04-29-2023 End: 04-29-2023 Admission to same day surgery center 04/29/2023 1:50 PM EDT - 04/29/2023 2:[address] [facility] [address] [place] [address] Varinder Mohr MD [address] [place] [address] RIGHT CARPAL TUNNEL RELEASE [facility] Comment on above: RIGHT CARPAL TUNNEL RELEASE Start: 04-29-2023 End: 04-29-2023 RELEASE CARPAL TUNNEL RELEASE CARPAL TUNNEL Bilateral carpal tunnel syndrome 04/29/2023 1:50 PM EDT [facility] Start: 04-29-2023 Subsequent hospital visit by physician [facility] Start: 04-28-2023 End: 04-28-2023 Patient encounter procedure 04/28/2023 4:[address] [facility] [address] [place] [address] [facility] Start: 04-02-2023 COVID-19 Vaccine ( season) COVID-19 Vaccine ( season) [facility] Start: 04-02-2023 Influenza vaccination INFLUENZA VACCINE (#1) [facility] Start: 02-23-2023 BP CONTROLLED (<130/80) BP CONTROLLED (<130/80) [facility] Start: 02-17-2023 BP CONTROLLED (<130/80) BP CONTROLLED (<130/80) [facility] Start: 01-02-2023 BP CONTROLLED (<130/80) BP CONTROLLED (<130/80) [facility] Start: 12-24-2022 ANNUAL PCP TEAM CHRONIC DISEASE VISIT ANNUAL PCP TEAM CHRONIC DISEASE VISIT [facility] Start: 12-24-2022 BP CONTROLLED (<130/80) BP CONTROLLED (<130/80) [facility] Start: 12-09-2022 ANNUAL PCP TEAM CHRONIC DISEASE VISIT ANNUAL PCP TEAM CHRONIC DISEASE VISIT [facility] Start: 12-09-2022 BP CONTROLLED (<130/80) BP CONTROLLED (<130/80) [facility] Start: 12-09-2022 COVID-19 VACCINE (#1) COVID-19 VACCINE (#1) [facility] Comment on above: Postponed from 1989 (Declined at t his time) Postponed from 10/22 (Declined at this time) Start: 11-26-2022 BP CONTROLLED (<130/80) BP CONTROLLED (<130/80) [facility] Start: 10-30-2022 BP CONTROLLED (<130/80) BP CONTROLLED (<130/80) [facility] Start: 09-29-2022 ANNUAL PCP TEAM CHRONIC DISEASE VISIT ANNUAL PCP TEAM CHRONIC DISEASE VISIT [facility] Start: 08-04-2022 BP CONTROLLED (<130/80) BP CONTROLLED (<130/80) [facility] Start: 05-27-2022 End: 07-27-2022 Choriogonadotropin ( test) [Presence] in Urine HCG QUAL UR Lab Routine Nausea Expected: 05/27/2022, Expires: 07/27/2022 [facility] Work Phone: Comment on above: Expected: 05/27/2022, Expires: 2 Start: 05-27-2022 End: 07-27-2022 PAIN PANEL, UR QUANT [facility] Work Phone: Comment on above: Expected: 05/27/2022, Expires: 2 Start: 04-02-2022 Influenza vaccination [facility] Start: 03-02-2022 Influenza vaccination Flu vaccine (#1) [facility] Start: 12-30-2021 End: 03-01-2022 POTASSIUM BLD POTASSIUM BLD Lab Routine Hypokalemia Expected: 12/30/2021, Expires: 03/01/2022 [facility] Work Phone: Comment on above: Expected: 12/30/2021, Expires: 2 Start: 12-24-2021 End: 02-23-2022 CBC panel - Blood by Automated count CBC Lab Routine Fatigue, unspecified type Expected: 12/24/2021, Expires: 02/23/2022 [facility] Work Phone: Comment on above: Expected: 12/24/2021, Expires: 2 Start: 12-24-2021 End: 02-23-2022 Comprehensive metabolic 2000 panel - Serum or Plasma COMP METABOLIC PANEL Lab Routine Hypokalemia Fatigue, unspecified type Expected: 12/24/2021, Expires: 02/23/2022 [facility] Work Phone: Comment on above: Expected: 12/24/2021, Expires: 2 Start: 12-24-2021 End: 02-23-2022 FERRITIN BLD FERRITIN BLD Lab Routine Fatigue, unspecified type Expected: 12/24/2021, Expires: 02/23/2022 [facility] Work Phone: Comment on above: Expected: 12/24/2021, Expires: 2 Start: 12-24-2021 End: 02-23-2022 Folate [Mass/volume] in Serum or Plasma FOLATE SERUM Lab Routine Folate deficiency Fatigue, unspecified type Expected: 12/24/2021, Expires: 02/23/2022 [facility] Work Phone: Comment on above: Expected: 12/24/2021, Expires: 2 Start: 12-24-2021 End: 02-23-2022 IRON + TIBC IRON + TIBC Lab Routine Fatigue, unspecified type Expected: 12/24/2021, Expires: 02/23/2022 [facility] Work Phone: Comment on above: Expected: 12/24/2021, Expires: 2 Start: 12-24-2021 End: 02-23-2022 Magnesium [Mass/volume] in Serum or Plasma MAGNESIUM BLD Lab Routine Fatigue, unspecified type Expected: 12/24/2021, Expires: 02/23/2022 [facility] Work Phone: Comment on above: Expected: 12/24/2021, Expires: 2 Start: 12-24-2021 End: 02-23-2022 VITAMIN B12 BLOOD VITAMIN B12 BLOOD Lab Routine Vitamin B12 deficiency Fatigue, unspecified type Expected: 12/24/2021, Expires: 02/23/2022 [facility] Work Phone: Comment on above: Expected: 12/24/2021, Expires: 2 Start: 12-19-2021 End: 02-18-2022 INTRINSIC FACTOR BLOCKING AB [facility] Work Phone: Comment on above: Expected: 12/19/2021, Expires: 2 Start: 12-19-2021 End: 02-18-2022 Methylmalonate [Moles/volume] in Serum or Plasma [facility] Work Phone: Comment on above: Expected: 12/19/2021, Expires: 2 Start: 11-05-2021 HPV TESTING HPV TESTING [facility] Start: 11-05-2021 PAP TESTING PAP TESTING [facility] Start: 04-02-2021 Influenza vaccination INFLUENZA (#1) [facility] Start: 04-02-2020 Influenza vaccination Flu vaccine (#1) [facility] [place] Start: 03-11-2017 Tetanus vaccination TETANUS [facility] Start: 09-28-2016 Lipid panel [facility] Start: 2014 Screening for malignant neoplasm of cervix HPV (without or with Pap) [facility] Start: 2006 DTaP/Tdap/Td Vaccines (1 - Tdap) DTaP/Tdap/Td Vaccines (1 - Tdap) [facility] Start: 2005 Screening for malignant neoplasm of cervix [facility] Start: 2003 DTaP/Tdap/Td vaccine (1 - Tdap) DTaP/Tdap/Td vaccine (1 - Tdap) [facility] Start: 2003 Urine microalbumin profile DTAP,TDAP,TD (1 - Tdap) [facility] Start: 2002 Hepatitis C screening [facility] Start: 1999 HIV screening [facility] Start: 1996 Depression Screen Depression Screen [facility] Start: 1990 PNEUMOCOCCAL (1 - PCV) PNEUMOCOCCAL (1 - PCV) [facility] Start: 1990 Pneumococcal 0-64 years Vaccine (1 - PCV) Pneumococcal 0-64 years Vaccine (1 - PCV) [facility] Start: 1989 COVID-19 VACCINE (1) COVID-19 VACCINE (1) [facility] Start: 1985 MMR Vaccines (1 of 1 - Standard series) MMR Vaccines (1 of 1 - Standard series) [facility] Start: 1985 Varicella vaccination Varicella Vaccines (1 of 2 - 2-dose childhood series) [facility] Start: 1985 Varicella vaccine (1 of 2 - 2-dose childhood series) Varicella vaccine (1 of 2 - 2-dose childhood series) [facility] Start: 1984 COVID-19 Vaccine (#1) COVID-19 Vaccine (#1) [facility] Start: 1984 Hepatitis C screening HEPATITIS C VIRUS SCREENING [facility] Start: 1984 HIV screening HIV Screening [facility] Start: 1984 Lipid panel Lipid Panel [facility] Start: 1984 Medicare Annual Wellness Visit Medicare Annual Wellness Visit (AWV) [facility] Start: 1984 Physical therapy management PT Plan of Care [facility] End: 07-14-2024 Adrenocorticotropic hormone measurement ACTH Lab Routine Fatigue, unspecified type Thyroid nodule 1 Occurrences starting 07/14/2023 until 07/14/2024 [facility] Work Phone: Comment on above: 1 Occurrences starting 07/14/2023 until 07/14/2024 Adrenocorticotropic hormone measurement ACTH Lab Routine Fatigue, unspecified type Thyroid nodule 07/14/2023 8:13 AM EST [facility] End: 03-07-2026 Celiac disease screen C[facility] [place] Panel Lab Routine Nausea and vomiting, unspecified vomiting type Diarrhea, unspecified type 1 Occurrences starting 03/07/2025 until 03/07/2026 [facility] Work Phone: Comment on above: 1 Occurrences starting 03/07/2025 until 03/07/2026 Cortisol [Mass/volum e] in Serum or Plasma --AM peak specimen Cortisol, AM Lab Routine Abnormal thyroid biopsy Fatigue, unspecified type Ordered: 06/23/2023 [facility] Comment on above: Ordered: 06/23/2023 End: 03-19-2023 Diagnostic mammography computer-aided detcj bi [facility] DIAGNOSTIC BILAT Radiology Routine Breast pain 1 Occurrences starting 02/17/2022 until 03/19/2023 [facility] Work Phone: Comment on above: 1 Occurrences starting 02/17/2022 until 03/19/2023 End: 09-07-2023 Electrocardiogram, 12-lead [facility] Service Area Work Phone: Comment on above: Once for 1 Occurrences starting 09/07/19 24 until 09/07/2023 End: 03-02-2025 EMG (NEURO/NI) FOR [place] EMG (NEURO/NI) FOR [place] EMG Routine Paresthesia of hand, bilateral 1 Occurrences starting 03/02/2024 until 03/02/[address] [facility] Comment on above: 1 Occurrences starting 03/02/2024 until 03/02/2025 End: 04-08-2024 Helicobacter pylori breath test H. pylori Urea Breath Test Lab Routine Diarrhea, unspecified type Unintentional weight loss 1 Occurrences starting 04/08/2023 until 04/08/2024 [facility] Comment on above: 1 Occurrences starting 04/08/2023 until 04/08/2024 Laparoscopy tot hyst erectomy >250 g w/tube/ovar HYSTERECTOMY ROBOTIC XI WITH BILATERAL SALPINGECTOMY Abnormal uterine bleeding [facility] [place] End: 02-09-2025 MR Ankle - right WO contrast MRI ANKLE WO IVCON RIGHT Radiology Routine Acute right ankle pain 1 Occurrences starting 01/11/2024 until 02/09/2025 [facility] Work Phone: Comment on above: 1 Occurrences starting 01/11/2024 until 02/09/2025 End: 04-01-2025 MR Cervical spine WO contrast MRI CERVICAL SPINE WO IV CON Radiology Routine Paresthesia of hand, bilateral 1 Occurrences starting 03/02/2024 until 04/01/2025 [facility] Work Phone: Comment on above: 1 Occurrences starting 03/02/2024 until 04/01/2025 End: 04-08-2024 NM Gastric Emptying NM Gastric Emptying Imaging Routine Diarrhea, unspecified type Generalized abdominal pain Nausea Early satiety 1 Occurrences starting 04/08/2023 until 04/08/2024 [facility] Work Phone: Comment on above: 1 Occurrences starting 04/08/2023 until 04/08/2024 Ova and parasites id entified in Unspecified specimen by Light microscopy OVA + PARA MICROSCOPIC Microbiology Routine Diarrhea, unspecified type Ordered: 12/24/2021 [facility] Work Phone: Comment on above: Ordered: 12/24/2021 PAIN PANEL, UR QUANT PAIN PANEL, UR QUANT Lab Routine Nausea Medical marijuana use 05/27/2022 4:02 PM EDT [facility] Work Phone: PAP FLUID CERVICAL SCREENING PAP FLUID CERVICAL SCREENING Lab Routine Encounter for gynecological examination (general) (routine) without abnormal findings Screening for cervical cancer Ordered: 02/23/2022 [facility] Work Phone: Comment on above: Ordered: 02/23/2022 PELVIC US WHI PELVIC US WHI An c Imaging Routine Pelvic pain in female Ordered: 02/17/2022 [facility] Work Phone: Comment on above: Ordered: 02/17/2022 Procedure on tissue specimen [facility] Work Phone: Comment on above: Release Upon Ordering for 1 Occurrences starting 08/04/2023, 1 completed Procedure on tissue specimen Tis atiya Exam Pathology and Cytology Routine Abnormal uterine bleeding Ordered: 08/21/2024 [facility] Work Phone: Comment on above: Ordered: 08/21/2024 End: 09-07-2023 Pulse oximetry, continuous Pulse oximetry, continuous Respiratory Care STAT Continuous until discontinued starting 09/07/2023 [facility] Work Phone: Comment on above: Continuous until discontinued starting 0 09/07/2023 RELEASE CARPAL TUNNEL RELEASE CA RPAL TUNNEL Bilateral carpal tunnel syndrome [facility] End: 08-30-2024 RF videography Hypopharynx and Esophagus Views W liquid and paste contrast PO during swallowing XR Modifed Barium Swallow Imaging Routine Oropharyngeal dysphagia 1 Occurrences starting 08/30/2023 until 08/30/2024 [facility] Work Phone: Comment on above: 1 Occurrences starting 08/30/2023 until 08/30/2024 SPECIMEN VALIDITY, URINE SPECIME N VALIDITY, URINE Lab Routine Nausea Medical marijuana use Ordered: 05/27/2022 [facility] Work Phone: Comment on above: Ordered: 05/27/2022 SURGICAL PATHOLOGY [facility] Work Phone: Comment on above: Release Upon Ordering for 1 Occurrences starting 11/10/2021, 1 completed Thyrotropin [Units/v olume] in Serum or Plasma TSH Lab Routine Abnormal thyroid biopsy Fatigue, unspecified type Ordered: 06/23/2023 [facility] Work Phone: Comment on above: Ordered: 06/23/2023 End: 10-18-2024 Thyrotropin [Units/volume] in Serum or Plasma TSH with Reflex Free T4 Lab Routine S/P thyroidectomy Thyroid cancer (HCC) Hypothyroidism, unspecified type 1 Occurrences starting 10/19/2023 until 10/18/2024 [facility] Work Phone: Comment on above: 1 Occurrences starting 10/19/2023 until 10/18/2024 Thyroxine (T4) free [Mass/volume] in Serum or Plasma T4, free Lab Routine Abnormal thyroid biopsy Fatigue, unspecified type Ordered: 06/23/2023 [facility] Comment on above: Ordered: 06/23/2023 End: 04-08-2024 Tissue transglutaminase IgA measurement Tissue Transglutaminase, IgA Lab Add-On Diarrhea, unspecified type Nausea Early satiety 1 Occurrences starting 04/08/2023 until 04/08/2024 [facility] Comment on above: 1 Occurrences starting 04/08/2023 until 04/08/2024 Tissue transglutamin ase IgA measurement Tissue Transglutaminase, IgA Lab Add-On Diarrhea, unspecified type Nausea Early satiety 04/02/2023 11:11 AM EDT [facility] TOX SCREEN ROUT UR TOX SCREEN RO UT UR Lab Routine Nausea Medical marijuana use Ordered: 05/27/2022 [facility] Work Phone: Comment on above: Ordered: 05/27/2022 End: 03-19-2023 Us breast uni real time with image limited [facility] Work Phone: Comment on above: 1 Occurrences starting 02/17/2022 until 03/19/2023 End: 07-08-2024 US Head and neck soft tissue US Soft Tissue Neck and Thyroid Imaging Routine Thyroid nodule 1 Occurrences starting 07/08/2023 until 07/08/2024 [facility] Work Phone: Comment on above: 1 Occurrences starting 07/08/2023 until 07/08/2024 US Lower extremity vein US LEG V EIN DVT UNL VAS LAB Vascular Lab Routine 01/11/2024 3:08 PM EDT [facility] Work Phone: End: 08-03-2024 XR Esophagus Views W contrast PO XR Upper GI With Esophagram Imaging Routine Dysphagia, unspecified type 1 Occurrences starting 08/03/2023 until 08/03/2024 [facility] Work Phone: Comment on above: 1 Occurrences starting 08/03/2023 until 08/03/2024 End: 02-09-2025 XR Foot - right AP and Lateral and oblique XR FOOT GENERAL 3V AP/LAT/OBL RIGHT Radiology Routine Pain 1 Occurrences starting 01/11/2024 until 02/09/2025 [facility] Work Phone: Comment on above: 1 Occurrences starting 01/11/2024 until 02/09/2025 XR Foot - right AP a nd Lateral and oblique XR FOOT GENERAL 3V AP/LAT/OBL RIGHT Radiology Routine Pain 01/11/2024 12:45 PM EDT [facility] Immunizations Immunization Date Immunization Notes Care Provider Leandra godwin 10-13-2023 tetanus toxoid, redu juan carlos diphtheria toxoid, and acellular pertussis vaccine, adsorbed Mo Kaur MD Work Phone: [facility] 12-23-2022 Pneumococcal Conjuga te 20-Valent (Prevnar 20) Lindsay Sherman [facility] Work Phone: [facility] 05-25-2018 influenza virus vaccine, unspecified formulation Power Parker MD Work Phone: [facility] 09-11-2016 influenza, injectabl e, quadrivalent, preservative free PABLO NAYLOR MD [facility] 09-11-2016 influenza virus vaccine, unspecified formulation [facility] Work Phone: 06-30-2014 influenza virus vaccine, unspecified formulation Toi Burt MD Work Phone: [facility] 09-28-2011 tuberculin skin test ; purified protein derivative solution, intradermal Libertad Conti MD Work Phone: [facility] 10-13-2010 tuberculin skin test ; purified protein derivative solution, intradermal Libertad Conti MD Work Phone: [facility] 06-02-2010 influenza virus vaccine, unspecified formulation Winston Ruiz DO Work Phone: [facility] Work Phone: 10-09-2009 RHO(D) immune globul in- IV or IM Winston Ruiz DO Work Phone: [facility] Work Phone: 10-31-2007 hepatitis B vaccine, adult dosage Winston Ruiz DO Work Phone: [facility] Work Phone: 04-11-2007 hepatitis B vaccine, adult dosage Winston Ruiz DO Work Phone: [facility] Work Phone: 03-11-2007 hepatitis B vaccine, adult dosage Winston Ruiz DO Work Phone: [facility] Work Phone: Payers Date Payer Category Payer Self-pay 2024 Medicare [id number] 2017 Unknown [id number] 2017 Medicaid [id number] 2017 Medicare [id number] 2017 Medicaid [id number] 2016 Medicare [id number] 2016 Medicare [id number] 2015 Unknown [id number] 1984 Unknown [id number] 2.16.84 0.1.055691.3.579.2.651 1984 Unknown [id number] 2.16. 840.1.518125.3.579.2.204 1984 Unknown [id number] 2.16. 840.1.641987.3.579.2.204 1984 Unknown [id number] 2.16.8 40.1.535349.3.579.2.1245 1984 Unknown [id number] 2.16. 840.1.956223.3.579.2.627 1984 Unknown [id number] 2.16. 840.1.035059.3.579.2.627 1984 Unknown [id number] 2.16.84 0.1.869212.3.579.2.1243 1984 Unknown [id number] 2.16.84 0.1.109812.3.579.2.1243 1984 Unknown [id number] 2.16.8 40.1.988681.3.579.2.1243 1984 Unknown [id number] 2.16.8 40.1.357854.3.579.2.1243 1984 Unknown [id number] 2.16. 840.1.909040.3.579.2.900 1984 Unknown [id number] 2.16. 840.1.220777.3.579.2.900 1984 Unknown [id number] 2.16. 840.1.831178.3.579.2.900 1984 Unknown [id number] 2.16. 840.1.691958.3.579.2.900 1984 Unknown [id number] 2.16. 840.1.017178.3.579.2.900 1984 Unknown [id number] 2.16. 840.1.622086.3.579.2.900 1984 Unknown [id number] 2.16.8 40.1.366912.3.579.2.983 1984 Unknown [id number] 2.16. 840.1.926456.3.579.2.903 1984 Unknown [id number] 2.16. 840.1.571225.3.579.2.903 1984 Unknown [id number] 2.16. 840.1.887087.3.579.2.90 1984 Unknown [id number] 2.16. 840.1.194815.3.579.2.903 1984 Unknown [id number] 2.16. 840.1.353169.3.579.2.903 1984 Unknown [id number] 2.16. 840.1.059934.3.579.2.903 1984 Unknown [id number] 2.16. 840.1.940891.3.579.2.903 1984 Unknown [id number] 2.16. 840.1.495246.3.579.2.903 1984 Unknown [id number] 2.16. 840.1.983687.3.579.2.903 1984 Unknown [id number] 2.16. 840.1.118086.3.579.2.2 1984 Unknown [id number] 2.16. 840.1.164894.3.579.2.902 1984 Unknown [id number] 2.16. 840.1.652217.3.579.2. 1984 Unknown [id number] 2.16. 840.1.126789.3.579.2. 1984 Unknown [id number] 2.16 840.1.015088.3.579.2. 1984 Unknown [id number] 2.16 840.1.393091.3.579.2.2 1984 Unknown [id number] 2.16 840.1.015269.3.579.2. 1984 Unknown [id number] 2.16. 840.1.840790.3.579.2.3 1984 Unknown [id number] 2.16 840.1.211394.3.579.2. 1984 Unknown [id number] 2.16. 840.1.241788.3.579.2.903 1984 Unknown [id number] 2.16 840.1.172154.3.579.2.903 Unknown [id number] 2.16.8 40.1.706902.3.579.2.462 Unknown [id number] 40.1.808777.3.579.2.462 Social History Date Type Detail Facility Start: 08-29-2018 End: 03-11-2020 Tobacco smoking status NHIS Former smoker [facility] Start: 08-26-1996 End: 07-26-2023 History of tobacco use Current smoker [facility] Start: 03-11-2020 End: 01-08-2025 Tobacco use and exposure Never used [facility]NE[facility] Start: 03-11-2020 End: 03-07-2025 Alcohol intake Ex-drinker (finding) [facility] Y Start: 1985 [facility] Start: 10-06-2021 End: 01-08-2025 Tobacco smoking status VTIS Smokes tobacco daily [facility] Work Phone: Start: 08-26-1996 End: 07-26-2023 History of tobacco use Cigarette Smoker [facility] Work Phone: Start: 10-06-2021 End: 08-05-2023 Cigarettes smoked current (pack per day) - Reported 1 [facility] Start: 10-22-2021 End: 03-02-2024 Alcohol intake Current non-drinker of alcohol (finding) [facility] Start: 04-11-2020 History SDOH Alcohol Frequency [address] [facility] Start: 04-11-2020 History SDOH Alcohol Std Drinks [address] [facility] Start: 04-11-2020 History SDOH Social Connections Membership [address] [facility] Start: 04-11-2020 History SDOH Social Connections Living [address] [facility] Start: 04-11-2020 History SDOH Physical Activity DPW [address] [facility] Start: 04-11-2020 History SDOH Stress [address] [facility] Start: 04-11-2020 History SDOH Financial [address] [facility] Start: 04-10-2020 Education [address] [facility] Start: 05-21-2009 Tobacco Comment 3 CIGARETTES A DAY [facility] Start: 1985 Sex Assigned At Female [facility] Start: 01-06-2021 End: 09-07-2023 Exposure to SARS-CoV-2 (event) Not sure [facility] Start: 12-31-2021 End: 05-15-2025 Tobacco smoking status Light tobacco smoker (finding) [facility] Start: 03-07-2023 End: 08-05-2023 Tobacco use panel [facility] Start: 04-08-2023 End: 09-07-2023 Alcohol intake Lifetime non-drinker (finding) [facility] Start: 03-15-2023 Tobacco Comment Patient doesn't want to quit unless boyfriend does to make it easier [facility] Start: 04-10-2020 Gender identity Identifies as female gender (finding) [facility] Start: 10-28-2022 Sexual orientation Heterosexual (finding) [facility] Within the last year , have you been afraid of your partner or ex-partner? No [facility] Are you now , , , , never or living with a partner? Living with partner [facility] How often to you hav e a drink containing alcohol? Never [facility] How many standard drinks containing alcohol do you have on a typical day? Patient does not drink [facility] How hard is it for y ou to pay for the very basics like food, housing, medical care, and heating Very hard [facility] Do you feel stress - tense, restless, nervous, or anxious, or unable to sleep at night because your mind is troubled all the time - these days [OSQ] Very much [facility] (I/We) worried wheth er (my/our) food would run out before (I/we) got money to buy more. Sometimes true [facility] In the past 12 month s, was there a time when you were not able to pay the mortgage or rent on time? Yes [facility] Start: 05-31-2023 Tobacco Comment Patient wants to quit [facility] (I/We) worried wheth er (my/our) food would run out before (I/we) got money to buy more. Often true [facility] Start: 09-07-2023 Tobacco smoking status NHIS Never smoked tobacco [facility] Work Phone: Are you now , , , , never or living with a partner? Never [facility] Do you feel stress - tense, restless, nervous, or anxious, or unable to sleep at night because your mind is troubled all the time - these days [OSQ] Rather much [facility] (I/We) worried wheth er (my/our) food would run out before (I/we) got money to buy more. Never true [facility] Sexual Orientation [place] Valentin herrera [facility] Start: 05-18-2019 Sex Female (finding) [facility] Medical Equipment Procedure Code Equipment Code Equipment Origin al Text Equipment Identifier Dates Hemostat 2 X 4in Surgicel Snow Sterl - [id number] Start: 08-04-2023 Kit 10ml Tisseel Frozen W/ Prima Syringe - [id number] Start: 08-04-2023 Kit 10ml Tisseel Frozen W/ Prima Syringe - [id number] Start: 08-04-2023 Hemostat 4 X 4in Surgicel Snow Sterl - [id number] Start: 08-04-2023 Kit 10ml Tisseel Frozen W/ Prima Syringe - [id number] Start: 08-04-2023 Hemostat 4 X 4in Surgicel Snow Sterl - [id number] Start: 09-12-2024 Goals Date Patient Goal Desired Activity /State Personal health goal Comment on above: Formatting of this n ote might be different from the original. Good Nutrition: Make healthier food choices Reduce portion size Follow meal plan Individualized goal: choose low sat fat foods, increase fresh vegetables and lean protein 12/23/22 - given low FODMAP handout and low carb diet to follow Formatting of this n ote might be different from the original. Using tobacco doubles your risk of heart disease and can damage blood vessels in your legs. Functional Status Date Assessment Result Facility 12-31-2021 Functional Status ID band on, Allergy Band on, Call device within reach, Bed in low position, Wheels locked, Upper/Half-Length side-rails up, Phone within reach, personal items within reach [facility] 09-26-2014 Are you deaf, or do you have serious difficulty hearing No 09/26/2014 5:49 PM Tory Willingham MA No [facility] 09-26-2014 Are you blind, or do you have serious difficulty seeing, even when wearing glasses No 09/26/2014 5:49 PM Tory Willingham MA No [facility] 09-26-2014 Do you have serious difficulty walking or climbing stairs No 09/26/2014 5:49 PM Tory Willingham MA No [facility] 09-26-2014 Do you have difficul ty dressing or bathing No 09/26/2014 5:49 PM Tory Willingham MA No [facility] 09-26-2014 Because of a physica l, mental, or emotional condition, do you have difficulty doing errands alone such as visiting a physician's office or shopping No 09/26/2014 5:49 PM Tory Willingham MA No [facility] Mental Status Date Assessment Result Facility 12-31-2021 Mental Status Oriented x 4 [facility] [place] 09-26-2014 Because of a physica l, mental, or emotional condition, do you have serious difficulty concentrating, remembering, or making decisions Yes 09/26/2014 5:49 PM Tory Willingham MA Yes [facility] Clinical Notes 02-05-2021 to 04-27-2025 Note Date & Type Note Facility 04-27-2025 Hospital Discharge instructions Patient Education 04/27/2025 21:21:26 Back Care Tips Back Care Tips Caring for your back These are things you can do to prevent a recurrence of acute back pain and to reduce symptoms from chronic back pain: Maintain a healthy weight. If you are overweight, losing weight will help most types of back pain. Exercise is an important part of recovery from most types of back pain. The muscles behind and in front of the spine support the back. This means strengthening both the back muscles and the abdominal muscles will provide better support for your spine. Swimming and brisk walking are good overall exercises to improve your fitness level. Practice safe lifting methods (below). Practice good posture when sitting, standing and walking. Avoid prolonged sitting. This puts more stress on the lower back than standing or walking. Wear quality shoes with sufficient arch support. Foot and ankle alignment can affect back symptoms. Women should avoid wearing high heels. Therapeutic massage can help relax the back muscles without stretching them. During the first 24 to 72 hours after an acute injury or flare-up of chronic back pain, apply an ice pack to the painful area for 20 minutes and then remove it for 20 minutes, over a period of 60 to 90 minutes, or several times a day. As a safety precaution, do not use a heating pad at bedtime. Sleeping on a heating pad can lead to skin garcia or tissue damage. You can alternate ice and heat therapies. Medicines Talk to your healthcare provider before using medicines, especially if you have other medical problems or are taking other medicines. You may use acetaminophen or ibuprofen to control pain, unless your healthcare provider prescribed other pain medicine. If you have chronic conditions like diabetes, liver or kidney disease, stomach ulcers, or gastrointestinal bleeding, or are taking blood thinners, talk with your healthcare provider before taking any medicines. Be careful if you are given prescription pain medicines, narcotics, or medicine for muscle spasm. They can cause drowsiness, affect your coordination, reflexes, and judgment. Do not drive or operate heavy machinery while taking these types of medicines. Take prescription pain medicine only as prescribed by your healthcare provider. Lumbar stretch Here is a simple stretching exercise that will help relax muscle spasm and keep your back more limber. If exercise makes your back pain worse, don t do it. Lie on your back with your knees bent and both feet on the ground. Slowly raise your left knee to your chest as you flatten your lower back against the floor. Hold for 5 seconds. Relax and repeat the exercise with your right knee. Do 10 of these exercises for each leg. Safe lifting method Don t bend over at the waist to lift an object off the floor. Instead, bend your knees and hips in a squat. Keep your back and head upright Hold the object close to your body, directly in front of you. Straighten your legs to lift the object. Lower the object to the floor in the reverse fashion. If you must slide something across the floor, push it. Posture tips Sitting Sit in chairs with straight backs or low-back support. Keep your knees lower than your hips, with your feet flat on the floor. When driving, sit up straight. Adjust the seat forward so you are not leaning toward the steering wheel. A small pillow or rolled towel behind your lower back may help if you are driving long distances. Standing When standing for long periods, shift most of your weight to one leg at a time. Alternate legs every few minutes. Sleeping The best way to sleep is on your side with your knees bent. Put a low pillow under your head to support your neck in a neutral spine position. Avoid thick pillows that bend your neck to one side. Put a pillow between your legs to further relax your lower back. If you sleep on your back, put pillows under your knees to support your legs in a slightly flexed position. Use a firm mattress. If your mattress sags, replace it, or use a 1/2-inch plywood board under the mattress to add support. Follow-up care Follow up with your healthcare provider, or as advised. If X-rays, a CT scan or an MRI scan were taken, they will be reviewed by a radiologist. You will be notified of any new findings that may affect your care. Call 911 Call 911 if any of the following occur: Trouble breathing Confusion Very drowsy Fainting or loss of consciousness Rapid or very slow heart rate Loss of bowel or bladder control When to seek medical advice Call your healthcare provider right away if any of the following occur: Pain becomes worse or spreads to your arms or legs Weakness or numbness in one or both arms or legs Numbness in the groin area [id number] [employer] [place] [address]. All rights reserved. This information is not intended as a substitute for professional medical care. Always follow your healthcare professional's instructions. 04/27/2025 21:21:23 Causes of Syncope Causes of Syncope Syncope (fainting) has many causes. Sometimes it's not serious. In other cases, it's a sign of a heart problem. But treatment can help When syncope is not serious Most causes of syncope are not serious and may include: Strong feelings, such as anxiety or fear. A nerve signal may briefly change your heart rate and lower your blood pressure too much. Standing for too long. Standing may cause blood to pool in your legs. When this happens, your brain may not get all the blood it needs. Standing up too fast. Your blood pressure may not adjust fast enough to changes in posture and may drop too low. Certain medicines can also cause this problem. Examples of medicines that can cause a drop in blood pressure include diuretics, blood pressure medicines, and medicines for chest pain. Reaction to normal body functions. When you go to the bathroom, have gastrointestinal discomfort, nausea, or pain, your heart may have a natural reflex to slow down and lower blood pressure. This can result in syncope. This may also follow exercise, eating, laughter, weight lifting, or playing musical instruments like the trumpet or trombone. When heart trouble causes syncope A heart problem can lower the amount of oxygen-rich blood that gets to the brain. Heart trouble can be serious and even life threatening if not treated: A slow heart rate. Electrical signals tell the chambers of the heart when to pump. But the signals may be slowed or blocked (heart block) as they travel on the heart s electrical pathways. This can be caused by aging, scarred heart tissue, or damage from heart disease. When the heart rate slows, not enough blood is pumped. A fast heart rate. Some things can make the heart race. For instance, a heart attack can create abnormal electrical signals. These signals can make the heart suddenly beat very fast. The heart pumps before the chambers can fill with blood. So less blood gets to the brain and other parts of the body. Illegal drugs, certain medicines, heart disease, or an inherited condition can also cause this. A heart valve problem. Blood travels through the chambers of the heart as it pumps. Heart valves open and close to help move blood in the right direction. But a hardened or scarred valve may not open or close fully. As a result, less blood is pumped through the heart to the brain and body. Most often, syncope occurs when a person's aortic valve is narrowed and he or she does strenuous activity. A heart muscle problem. Some people develop a thickened heart muscle that blocks blood flow out of the heart to the body. This is called hypertrophic cardiomyopathy. Being dehydrated and having this condition can raise the risk for syncope. Whatever the cause of syncope, it's important to see your healthcare provider. You may need to be seen by a kiln stacker, neurologist, or an ear, nose, and throat specialist. Don't drive, operate heavy machinery, or do activities in which you could fall and injure yourself if you have syncope and have not been evaluated. [id number] [employer]. [address] [place] [address], [place] [address]. All rights reserved. This information is not intended as a substitute for professional medical care. Always follow your healthcare professional's instructions. Follow Up Care 04/27/2025 19:16:20 With:PHYSICIAN, PATIENT UNSURE Address:Unknown When:2-[address] [facility] [place] 04-27-2025 Emergency department Discharge summary Discharge Instructions Thank you for allowing [facility] to assist you with your healthcare needs. The following is important discharge information regarding your hospital visit. Diagnosis from Today's Visit Syncope What to Do Next Instructions from Your Care Team No qualifying data available. Post Acute Orders No qualifying data available. You Need to Schedule the Following Appointments Follow Up with PHYSICIAN, PATIENT UNSURE When:Within 2-4 days Allergies Adhesive Bandage Remeron Medications Please ask your primary doctor or pharmacist before taking any other medication not listed, including over the counter drugs, herbal medications, vitamins and or supplements as they may interact with your home medications. What How Much When Instructions Last Dose New baclofen (baclofen 20 mg oral tablet) 1 tab(s) by mouth Three (3) times a day Duration: 5 Days Printed Prescription New lidocaine topical (Lidoderm 5% topical patch) 1 patch(es) Topical Every day Duration: 7 Days Printed Prescription Unchanged atorvastatin (atorvastatin 40 mg oral tablet) 1 tab(s) by mouth Daily at bedtime Unchanged busPIRone (BuSpar) 15 Milligram by mouth Three (3) times a day as needed for Anxiety Unchanged citalopram (CeleXA 40 mg oral tablet) 1 tab(s) by mouth Once a day Unchanged gabapentin (Neurontin 300 mg oral capsule) 1 cap by mouth Twice daily with meals Unchanged hydrOXYzine (hydrOXYzine pamoate 50 mg oral capsule) 1 cap by mouth Every 4 hours as needed for Anxiety Unchanged ibuprofen (Motrin) 800 Milligram by mouth Three (3) times a day as needed for as needed for pain Unchanged lamoTRIgine (lamoTRIgine 25 mg oral tablet) 1 tab(s) by mouth Two (2) times a day Unchanged medroxyPROGESTERone (medroxyPROGESTERone 150 mg/ mL intramuscular suspension) 1 Milliliter Intramuscular Every 3 months Unchanged naltrexone (naltrexone 50 mg oral tablet) 1 tab(s) by mouth Once a day Unchanged nicotine (Nicorette 2 mg oral transmucosal gum) 1 Each Chewed Every 2 hours as needed for Nicotine craving Unchanged pantoprazole 40 Milligram by mouth Once a day Unchanged potassium chloride (Potassium Chloride (Uva-Hmrl-Gyo M20) 20 mEq oral tablet, extended release) 1 tab(s) by mouth Once a day Unchanged prazosin (prazosin 5 mg oral capsule) 1 cap by mouth Daily at bedtime Unchanged propranolol (propranolol 20 mg oral tablet) 1 tab(s) by mouth Two (2) times a day Unchanged QUEtiapine (SEROquel 400 mg oral tablet) 1 tab(s) by mouth Daily at bedtime Unchanged traZODone (traZODone 100 mg oral tablet) 1 tab(s) by mouth Daily at bedtime Please take this list to your next doctor s visit. Bring all medications you take, including over the counter medications, herbals and other supplements with you to your doctor s visit. Patients and families are reminded to discard old lists and to update any records with all medication providers or retail pharmacies. Education Materials Back Care Tips Caring for your back These are things you can do to prevent a recurrence of acute back pain and to reduce symptoms from chronic back pain: Maintain a healthy weight. If you are overweight, losing weight will help most types of back pain. Exercise is an important part of recovery from most types of back pain. The muscles behind and in front of the spine support the back. This means strengthening both the back muscles and the abdominal muscles will provide better support for your spine. Swimming and brisk walking are good overall exercises to improve your fitness level. Practice safe lifting methods (below). Practice good posture when sitting, standing and walking. Avoid prolonged sitting. This puts more stress on the lower back than standing or walking. Wear quality shoes with sufficient arch support. Foot and ankle alignment can affect back symptoms. Women should avoid wearing high heels. Therapeutic massage can help relax the back muscles without stretching them. During the first 24 to 72 hours after an acute injury or flare-up of chronic back pain, apply an ice pack to the painful area for 20 minutes and then remove it for 20 minutes, over a period of 60 to 90 minutes, or several times a day. As a safety precaution, do not use a heating pad at bedtime. Sleeping on a heating pad can lead to skin garcia or tissue damage. You can alternate ice and heat therapies. Medicines Talk to your healthcare provider before using medicines, especially if you have other medical problems or are taking other medicines. You may use acetaminophen or ibuprofen to control pain, unless your healthcare provider prescribed other pain medicine. If you have chronic conditions like diabetes, liver or kidney disease, stomach ulcers, or gastrointestinal bleeding, or are taking blood thinners, talk with your healthcare provider before taking any medicines. Be careful if you are given prescription pain medicines, narcotics, or medicine for muscle spasm. They can cause drowsiness, affect your coordination, reflexes, and judgment. Do not drive or operate heavy machinery while taking these types of medicines. Take prescription pain medicine only as prescribed by your healthcare provider. Lumbar stretch Here is a simple stretching exercise that will help relax muscle spasm and keep your back more limber. If exercise makes your back pain worse, don t do it. Lie on your back with your knees bent and both feet on the ground. Slowly raise your left knee to your chest as you flatten your lower back against the floor. Hold for 5 seconds. Relax and repeat the exercise with your right knee. Do 10 of these exercises for each leg. Safe lifting method Don t bend over at the waist to lift an object off the floor. Instead, bend your knees and hips in a squat. Keep your back and head upright Hold the object close to your body, directly in front of you. Straighten your legs to lift the object. Lower the object to the floor in the reverse fashion. If you must slide something across the floor, push it. Posture tips Sitting Sit in chairs with straight backs or low-back support. Keep your knees lower than your hips, with your feet flat on the floor. When driving, sit up straight. Adjust the seat forward so you are not leaning toward the steering wheel. A small pillow or rolled towel behind your lower back may help if you are driving long distances. Standing When standing for long periods, shift most of your weight to one leg at a time. Alternate legs every few minutes. Sleeping The best way to sleep is on your side with your knees bent. Put a low pillow under your head to support your neck in a neutral spine position. Avoid thick pillows that bend your neck to one side. Put a pillow between your legs to further relax your lower back. If you sleep on your back, put pillows under your knees to support your legs in a slightly flexed position. Use a firm mattress. If your mattress sags, replace it, or use a 1/2-inch plywood board under the mattress to add support. Follow-up care Follow up with your healthcare provider, or as advised. If X-rays, a CT scan or an MRI scan were taken, they will be reviewed by a radiologist. You will be notified of any new findings that may affect your care. Call 911 Call 911 if any of the following occur: Trouble breathing Confusion Very drowsy Fainting or loss of consciousness Rapid or very slow heart rate Loss of bowel or bladder control When to seek medical advice Call your healthcare provider right away if any of the following occur: Pain becomes worse or spreads to your arms or legs Weakness or numbness in one or both arms or legs Numbness in the groin area [id number] [employer] [place] [address], [place] [address]. All rights reserved. This information is not intended as a substitute for professional medical care. Always follow your healthcare professional's instructions. Causes of Syncope Syncope (fainting) has many causes. Sometimes it's not serious. In other cases, it's a sign of a heart problem. But treatment can help When syncope is not serious Most causes of syncope are not serious and may include: Strong feelings, such as anxiety or fear. A nerve signal may briefly change your heart rate and lower your blood pressure too much. Standing for too long. Standing may cause blood to pool in your legs. When this happens, your brain may not get all the blood it needs. Standing up too fast. Your blood pressure may not adjust fast enough to changes in posture and may drop too low. Certain medicines can also cause this problem. Examples of medicines that can cause a drop in blood pressure include diuretics, blood pressure medicines, and medicines for chest pain. Reaction to normal body functions. When you go to the bathroom, have gastrointestinal discomfort, nausea, or pain, your heart may have a natural reflex to slow down and lower blood pressure. This can result in syncope. This may also follow exercise, eating, laughter, weight lifting, or playing musical instruments like the trumpet or trombone. When heart trouble causes syncope A heart problem can lower the amount of oxygen-rich blood that gets to the brain. Heart trouble can be serious and even life threatening if not treated: A slow heart rate. Electrical signals tell the chambers of the heart when to pump. But the signals may be slowed or blocked (heart block) as they travel on the heart s electrical pathways. This can be caused by aging, scarred heart tissue, or damage from heart disease. When the heart rate slows, not enough blood is pumped. A fast heart rate. Some things can make the heart race. For instance, a heart attack can create abnormal electrical signals. These signals can make the heart suddenly beat very fast. The heart pumps before the chambers can fill with blood. So less blood gets to the brain and other parts of the body. Illegal drugs, certain medicines, heart disease, or an inherited condition can also cause this. A heart valve problem. Blood travels through the chambers of the heart as it pumps. Heart valves open and close to help move blood in the right direction. But a hardened or scarred valve may not open or close fully. As a result, less blood is pumped through the heart to the brain and body. Most often, syncope occurs when a person's aortic valve is narrowed and he or she does strenuous activity. A heart muscle problem. Some people develop a thickened heart muscle that blocks blood flow out of the heart to the body. This is called hypertrophic cardiomyopathy. Being dehydrated and having this condition can raise the risk for syncope. Whatever the cause of syncope, it's important to see your healthcare provider. You may need to be seen by a kiln stacker, neurologist, or an ear, nose, and throat specialist. Don't drive, operate heavy machinery, or do activities in which you could fall and injure yourself if you have syncope and have not been evaluated. [id number] [employer]. [address] [place] [address]. All rights reserved. This information is not intended as a substitute for professional medical care. Always follow your healthcare professional's instructions. Additional Information VACCINATE! IT SAVES LIVES! Members of the community who have not yet received the COVID-19 vaccine and would like to receive it can visit one of [facility] vaccine clinics. There are many vaccine clinic locations within the [facility]. For locations and available times, please visit [email or web address] It is important to note that some COVID mobile vaccine clinics are held outdoors and may be canceled in rainy or stormy conditions. To learn more about pediatric vaccinations (ages 5-11), we invite you to visit the [facility] webpage. [email or web address]/pag [email or web address]-[email or web address]-[email or web address] [email or web address]-Qjuanlpvu.html To learn more about the COVID-19 vaccine, we invite you to visit the CDC website for a list of frequently asked questions. https://www.cdc.gov/coronavirus/-ncov/vaccines/faq.html [employer] [employer] [facility] Patient Portal Access Instructions: Stay connected with your healthcare team and access your personal medical information anytime with the [employer] Patient Portal. If you would like a full copy of your medical records please contact the [facility] Medical Records Department Wednesday through Wednesday between 8a.m. and 4:30p.m. Please follow the directions below to access the portal: 1.Access the email account you provided upon registration to the hospital.2.Look for an invitation email from [facility].3.Open the email and access the invitation link: Accept Invitation to [employer] [employer]4.Fill in the required santiago to create your account. To access your account, visit [employer] or scan the [employer] code above. Click the blue button labeled Access Patient Portal and then log in with the username and password that you created in the steps above. You can then view a summary of results, a summary of your visits, and the ability to download your summaries to your computer or send the information securely to a physician. Remember that your healthcare information is confidential, so carefully consider who you will allow to register on the [facility] Patient Portal for access to your information. You can also access the [employer] Patient Portal on the [employer]. Simply click on Health Records under Health Data and then click on the [employer] logo. HOW TO SAFELY DISPOSE OF PRESCRIPTION MEDICATIONS Please use one of the following methods to safely dispose of your unused medications. 1.Use a drug disposal kit: the drug disposal pouch allows you to safely discard your old and unused drugs. Ask your nurse to give you one when you are discharged.2.Visit a local take-back location: Many local pharmacies and police departments have programs that collect old and unwanted prescription drugs. Call your local pharmacy or go to http://bit.ly/6N7Fw2l to find one close to you.3.Make use of household items: Use cat litter or old coffee grounds to dispose medications if other options are not available. Mix your drugs with these household products, seal them in an airtight container and throw it into the garbage. Call [facility]: [phone] to be sure your drugs can be disposed of in this way. Some medicines may require a different approach.4.Never flush your medications down the toilet. IF YOU HAVE BEEN PRESCRIBED AN OPIOIDS FOR PAIN If you have been prescribed an opioid (such as hydrocodone, oxycodone or morphine), it is critical to understand the possible side effects and risks of opioid pain medications. Even when taken as directed, opioids can have several side effects including: Tolerance, meaning you might need to take more of a medication for the same pain relief. Nausea, vomiting and/or constipation. Sleepiness, dizziness, dry mouth, confusion, depression or itching. Physical dependence, meaning you have withdrawal symptoms when a medication is stopped ? this can develop within a few days. KNOW YOUR RESPONSIBILITIES It is important to know exactly how much and how often to take the opioid pain medications you are prescribed. Never take opioids in higher amounts or more often than prescribed. Do not combine opioids with alcohol or other drugs that cause drowsiness, such as benzodiazepines, also known as benzos, including diazepam and alprazolam, muscle relaxants or sleep aids. Never sell or share prescription opioids. This is illegal. Store opioids in a secure place and out of reach of others (including children, family, friends and visitors). The last page(s) of this document has been signed and retained as a CHART COPY Signatures Patient Education Materials Back Care Tips Causes of Syncope Medication Leaflets My discharge plan and instructions have been reviewed and explained to me and I,MCKAYLA DYKES understand my current condition and have read and understand these discharge instructions. I have received a written copy of the plan/instructions. If I have questions, I am aware that I should contact my doctor. Patient/Bulb Assembler Signature: Date/Time: Relationship to Patient: ___ Witness Name/Signature: Date/Time: [facility] 04-27-2025 Note Exam Date Time Procedure Performing Provider Status 04/27/25 8:46 PM XR Spine Lumbosacral Minimum 4 Views ROCKY DUENAS MD; Auth (Verified) [id number] ORIGINAL EXAMINATION: 4 XRAY VIEWS OF THE LUMBAR SPINE 04/27/2025 8:47 pm COMPARISON: None. HISTORY: ORDERING SYSTEM PROVIDED HISTORY: Reason for Exam: fall, pain FINDINGS: Vertebral body heights and alignment are preserved. No significant degenerative change by radiograph. IMPRESSION: No acute osseous abnormality. Interpreted by: Rocky Duenas Preliminary Report By: Rocky Duenas Electronically signed By Rocky Duenas Dictated Date: 04/27/2025 9:08:21 PM Prelim Date: 04/27/2025 9:09:08 PM Sign Date: 04/27/2025 9:09:08 PM Ordering Provider: YOHANNES HOGUE [facility]09-26-2025 Note* Exam Date Time Procedure Performing Provider Status 04/27/25 7:46 PM EKG [ED AO] - CV YOHANNES HOGUE DO; Au (Verified) ECG Final Report Sinus rhythm Consider left atrial enlargement Electronic Signature: YOHANNES HOGUE DO 04/27/2025 19:57:35 [facility]08-06-2025 NoteDamaris Dykes 39 y.o. 1985 female Changes since last visit: 39-year-old female with history of anemia, anxiety depression, bipolar 1 disorder, MDD, arthritis, GERD, HLD, HTN, papillary carcinoma of thyroid status post thyroid resection, pleurisy, PTSD, sleep apnea returns to the office for further evaluation of ongoing stomach problems and low potassium. Last seen in the office 10/05/2023. Patient with chronic diarrhea, nausea and vomiting with previous workup with gastric emptying study with rapid gastric emptying and colonoscopy with biopsies was normal. Diarrhea is chronic and persistent and occurs regardless of food intake. Does endorse some dysphagia and globus sensation as well as sensation of food being stuck in the epigastric region occasionally will regurgitate/vomit food back up commonly emesis is just liquid. Diarrhea is mushy to watery and volume varies denies any blood in the stool or unintentional weight loss. Nausea does affect her appetite. She has used Imodium in the past and Metamucil although not taking anything currently. PCP recently prescribed Carafate and Reglan, although she has not started taking these either. She also has FiberCon supplement on med list although denies she is taking. She had an EGD in 2021 at outlying facility endoscopically normal. She takes PPI daily although does reports she is not consistent with her medications. 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, normal COLONOSCOPY N/A 05/14/2023 with biopsy; Surgeon: Brandon Norton MD COLPOSCOPY DILATION AND CURETTAGE OF UTERUS ESOPHAGOGASTRODUODENOSCOPY 02/24/[address] [facility], mild chronic inactive gastritis with rare h-pylori HYSTERECTOMY ROBOTIC XI WITH BILATERAL SALPINGECTOMY N/A 09/12/2024 Procedure: HYSTERECTOMY ROBOTIC XI WITH BILATERAL SALPINGECTOMY; Surgeon: Tory Vela MD; Location: Main OR; Service: [employer]; Laterality: N/A; Dr. Montoya proctoring LUNG SURGERY Left early 20's, filled with fluid MULTIPLE TOOTH EXTRACTIONS wears dentures PIERCINGS AND TATTOOS PLANTAR FASCIA SURGERY Bilateral THORACENTESIS THYROIDECTOMY Bilateral 08/04/2023 TOTAL THYROIDECTOMY-papillary carcinoma classic subtype pT1a pN......Dr. Gilles Kim THYROID BIOPSY WITH FNA 06/08/2023 THYROID BIOPSY WITH FNA 06/08/2023 Danny Arevalo DO ULTRASOUND Social History: Social History[1] Current Medications: Current Medications[2] Review of Systems Constitutional: Negative for fatigue and fever. Respiratory: Negative for choking and shortness of breath. Gastrointestinal: Positive for abdominal pain (Epigastric pain), diarrhea, nausea and vomiting. Negative for abdominal distention, anal bleeding, blood in stool, constipation and rectal pain. Skin: Negative for color change and pallor. Neurological: Negative for dizziness and weakness. Physical Exam Constitutional: General: She is not in acute distress. HENT: Head: Normocephalic and atraumatic. Right Ear: External ear normal. Left Ear: External ear normal. Nose: Nose normal. Mouth/Throat: Mouth: Mucous membranes are moist. Pharynx: No posterior oropharyngeal erythema. Eyes: General: No scleral icterus. Pupils: Pupils are equal, round, and reactive to light. Cardiovascular: Rate and Rhythm: Normal rate and regular rhythm. Heart sounds: No murmur heard. No gallop. Pulmonary: Effort: Pulmonary effort is normal. No respiratory distress. Breath sounds: Normal breath sounds. No wheezing. Abdominal: General: Bowel sounds are normal. There is no distension. Palpations: Abdomen is soft. There is no mass. Tenderness: There is no abdominal tenderness. Musculoskeletal: General: No deformity. Normal range of mahesh (more content not included)...[facility] [id number] History of Present illness Narrative* Lindsay Sherman CNP - 03/07/2025 3:02 PM EDT Damaris Dykes 39 y.o. 1985 female Changes since last visit: 39-year-old female with history of anemia, anxiety depression, bipolar 1 disorder, MDD, arthritis, GERD, HLD, HTN, papillary carcinoma of thyroid status post thyroid resection, pleurisy, PTSD, sleep apnea returns to the office for further evaluation of ongoing stomach problems and low potassium. Last seen in the office 10/05/2023. Patient with chronic diarrhea, nausea and vomiting with previous workup with gastric emptying study with rapid gastric emptying and colonoscopy with biopsies was normal. Diarrhea is chronic and persistent and occurs regardless of food intake. Does endorse some dysphagia and globus sensation as well as sensation of food being stuck in the epigastric region occasionally will regurgitate/vomit food back up commonly emesis is just liquid. Diarrhea is mushy to watery and volume varies denies any blood in the stool or unintentional weight loss. Nausea does affect her appetite. She has used Imodium in the past and Metamucil although not taking anything currently. PCPrecently prescribed Carafate and Reglan, although she has not started taking these either. She alsohas FiberCon supplement on med list although denies she is taking. She had an EGD in 2021 at outlying facility endoscopically normal. She takes PPI daily although does reports she is not consistent with her medications. 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, normal COLONOSCOPY N/A 05/14/2023 with biopsy; Surgeon: Brandon Norton MD COLPOSCOPY DILATION AND CURETTAGE OF UTERUS ESOPHAGOGASTRODUODENOSCOPY 02/24/[address] [facility], mild chronic inactive gastritis with rare h-pylori HYSTERECTOMY ROBOTIC XI WITH BILATERAL SALPINGECTOMY N/A 09/12/2024 Procedure: HYSTERECTOMY ROBOTIC XI WITH BILATERAL SALPINGECTOMY; Surgeon: Tory Vela MD;Location: Main OR; Service: [employer]; Laterality: N/A; Dr. Montoya proctoring LUNG SURGERY Left early 20's, filled with fluid MULTIPLE TOOTH EXTRACTIONS wears dentures PIERCINGS AND TATTOOS PLANTAR FASCIA SURGERY Bilateral THORACENTESIS THYROIDECTOMY Bilateral 08/04/2023 TOTAL THYROIDECTOMY-papillary carcinoma classic subtype pT1a pN......Dr. Gilles Kim THYROID BIOPSY WITH FNA 06/08/2023 THYROID BIOPSY WITH FNA 06/08/2023 Danny Arevalo DO ULTRASOUND Social History: Social History[1] Current Medications: Current Medications[2] Review of Systems Constitutional: Negative for fatigue and fever. Respiratory: Negative for choking and shortness of breath. Gastrointestinal: Positive for abdominal pain (Epigastric pain), diarrhea, nausea and vomiting. Negative for abdominal distention, anal bleeding, blood in stool, constipation and rectal pain. Skin: Negative for color change and pallor. Neurological: Negative for dizziness and weakness. Physical Exam Constitutional: General: She is not in acute distress. HENT: Head: Normocephalic and atraumatic. Right Ear: External ear normal. Left Ear: External ear normal. Nose: Nose normal. Mouth/Throat: Mouth: Mucous membranes are moist. Pharynx: No posterior oropharyngeal erythema. Eyes: General: No scleral icterus. Pupils: Pupils are equal, round, and reactive to light. Cardiovascular: Rate and Rhythm: Normal rate and regular rhythm. Heart sounds: No murmur heard. No gallop. Pulmonary: Effort: Pulmonary effort is normal. No respiratory distress. Breath sounds: Normal breath sounds. No wheezing. Abdominal: General: Bowel sounds are normal. There is no distension. Palpations: Abdomen is soft. There is no mass. Tenderness: There is no abdominal tenderness. Musculoskeletal: General: No deformity. Normal range of motion. Cervical back: Normal range of motion and neck supple. Skin: General: Skin is warm and dry. Coloration: Skin is not jaundiced or pale. Neurological: General: No focal deficit present. Mental Status: She is alert and oriented to person, place, and time. Psychiatric: Mood and Affect: Mood normal. Behavior: Behavior normal. Office Visit on 03/05/2025 Component Date Value Ref Range Status Glucose ([facility]) 03/05/2025 87 65 - 99 mg/dL Final Fasting reference interval BUN ([facility]) 03/05/2025 3 (L) 7 - 25 mg/dL Final Verified by repeat analysis. Creatinine ([facility]) 03/05/2025 0.8 0.50 - 0.99 mg/dL Final Verified by repeat analysis. eGFR ([facility]) 03/05/2025 95 > OR = 60 mL/min/1.73m2 Final Bun/Creatinine Ratio ([facility]) 03/05/2025 4 (L) 6 - 22 (calc) Final Sodium ([facility]) 03/05/2025 141 135 - 146 mmol/L Final Potassium ([facility]) 03/05/2025 3.4 (L) 3.5 - 5.3 mmol/L Final Chloride ([facility]) 03/05/2025 98 98 - 110 mmol/L Final CO2 ([facility]) 03/05/2025 28 20 - 32 mmol/L Final Electrolyte Balance ([facility]) 03/05/2025 15 7 - 17 mmol/L (calc) Final Calcium ([facility]) 03/05/2025 9.3 8.6 - 10.2 mg/dL Final Admission on 03/02/2025, Discharged on 03/02/2025 Component Date Value Ref Range Status WBC 03/02/2025 7.67 4.50 - 11.00 K/mcL Final RBC 03/02/2025 5.47 (H) 4.00 - 5.20 M/mcL Final Hemoglobin 03/02/2025 16.6 (H) 12.0 - 16.0 g/dL Final Hemoglobin result outside normal range for a female patient, consider a mixing issue. Hematocrit 03/02/2025 48.5 (H) 36.0 - 46.0 % Final MCV 03/02/2025 88.7 80.0 - 100.0 fL Final MCH 03/02/2025 30.3 26.0 - 34.0 pg Final MCHC 03/02/2025 34.2 31.0 - 37.0 g/dL Final RDW - CV 03/02/2025 12.8 11.6 - 14.8 % Final Platelets 03/02/2025 348 150 - 400 K/mcL Final MPV 03/02/2025 9.9 9.4 - 12.4 fL Final Neutrophils 03/02/2025 55.7 % Final Lymphocytes 03/02/2025 34.4 % Final Monocytes 03/02/2025 7.4 % Final Eosinophils 03/02/2025 2.0 % Final Basophils 03/02/2025 0.4 % Final IG Percent 03/02/2025 0.10 % Final The IG parameter is the percentage of metamyelocytes, myelocytes and promyelocytes. An immature granulocyte count (IG) of 1% or more suggests the possibility of infection, an IG count of 3% is very likely related to an infection. Neutrophils Abs 03/02/2025 4.27 1.70 - 7.00 K/mcL Final Lymphocytes Abs 03/02/2025 2.64 0.90 - 4.00 K/mcL Final Monocytes Abs 03/02/2025 0.57 0.30 - 0.90 K/mcL Final Eosinophils Abs 03/02/2025 0.15 0.00 - 0.50 K/mcL Final Basophils Abs 03/02/2025 0.03 0.00 - 0.30 K/mcL Final IG Absolute 03/02/2025 0.01 0.00 - 0.30 K/mcL Final Ventricular Rate 03/02/2025 61 BPM Final Atrial Rate 03/02/2025 61 BPM Final P-R Interval 03/02/2025 144 ms Final QRS Duration 03/02/2025 106 ms Final Q-T Interval 03/02/2025 462 ms Final QTC Calculation (Bezet) 03/02/2025 465 ms Final P Kermit 03/02/2025 19 degrees Final R Kermit 03/02/2025 18 degrees Final T Kermit 03/02/2025 9 degrees Final Glucose 03/02/2025 95 65 - 99 mg/dL Final BUN 03/02/2025 5 (L) 8 - 25 mg/dL Final Creatinine 03/02/2025 0.78 0.40 - 1.10 mg/dL Final GFR 03/02/2025 99 >=60 mL/min/1.73 m2 Final Estimated GFR was calculated using the 2020 CKD-EPI creatinine equation. Sodium 03/02/2025 139 135 - 145 mmol/L Final Potassium 03/02/2025 2.7 (CL) 3.5 - 5.1 mmol/L Final Chloride 03/02/2025 92 (L) 98 - 108 mmol/L Final TCO2 03/02/2025 31 21 - 32 mmol/L Final Ionized Calcium 03/02/2025 4.2 (L) 4.5 - 5.3 mg/dL Final Troponin I 03/02/2025 <0.05 <0.05 ng/mL Final Glucose 03/02/2025 91 65 - 99 mg/dL Final BUN 03/02/2025 4 (L) 8 - 25 mg/dL Final Creatinine 03/02/2025 0.73 0.40 - 1.10 mg/dL Final GFR 03/02/2025 107 >=60 mL/min/1.73 m2 Final Estimated GFR was calculated using the 2020 CKD-EPI creatinine equation. Sodium 03/02/2025 141 135 - 145 mmol/L Final Potassium 03/02/2025 2.6 (CL) 3.5 - 5.1 mmol/L Final Chloride 03/02/2025 96 (L) 98 - 108 mmol/L Final TCO2 03/02/2025 33 (H) 21 - 32 mmol/L Final Ionized Calcium 03/02/2025 4.3 (L) 4.5 - 5.3 mg/dL Final Glucose 03/02/2025 102 (H) 65 - 99 mg/dL Final BUN 03/02/2025 4 (L) 8 - 25 mg/dL Final Creatinine 03/02/2025 0.75 0.40 - 1.10 mg/dL Final GFR 03/02/2025 103 >=60 mL/min/1.73 m2 Final Estimated GFR was calculated using the 2020 CKD-EPI creatinine equation. Sodium 03/02/2025 142 135 - 145 mmol/L Final Potassium 03/02/2025 2.9 (L) 3.5 - 5.1 mmol/L Final Chloride 03/02/2025 97 (L) 98 - 108 mmol/L Final TCO2 03/02/2025 34 (H) 21 - 32 mmol/L Final Ionized Calcium 03/02/2025 4.5 4.5 - 5.3 mg/dL Final Office Visit on 02/27/2025 Component Date Value Ref Range Status Vitamin D, 25-Hydroxy, Total (Ques* 02/27/2025 39 30 - 100 ng/mL Final Vitamin D Status 25-OH Vitamin D: Deficiency: <20 ng/mL Insufficiency: 20 - 29 ng/mL Optimal: > or = 30 ng/mL For 25-OH Vitamin D testing on patients on D2-supplementation and patients for whom quantitation of D2 and D3 fractions is required, the QuestAssureD(TM) 25-OH VIT D, (D2,D3), LC/MS/MS is recommended: order code 95721 (patients >2yrs). See Note 1 Note 1 For additional information, please refer to http://education.Entitle/faq/SUT057 (This link is being provided for informational/ educational purposes only.) TSH ([facility]) 02/27/2025 1.68 mIU/L Final Reference Range > or = 20 Years 0.40-4.50 Ranges First trimester 0.26-2.66 Second trimester 0.55-2.73 Third trimester 0.43-2.91 Glucose ([facility]) 02/27/2025 87 65 - 99 mg/dL Final Fasting reference interval BUN ([facility]) 02/27/2025 5 (L) 7 - 25 mg/dL Final Creatinine ([facility]) 02/27/2025 0.88 0.50 - 0.99 mg/dL Final eGFR ([facility]) 02/27/2025 85 > OR = 60 mL/min/1.73m2 Final Sodium ([facility]) 02/27/2025 140 135 - 146 mmol/L Final Potassium ([facility]) 02/27/2025 2.8 (L) 3.5 - 5.3 mmol/L Final Chloride ([facility]) 02/27/2025 93 (L) 98 - 110 mmol/L Final CO2 ([facility]) 02/27/2025 28 20 - 32 mmol/L Final Electrolyte Balance ([facility]) 02/27/2025 19 (H) 7 - 17 mmol/L (calc) Final Calcium ([facility]) 02/27/2025 9.6 8.6 - 10.2 mg/dL Final Total Protein ([facility]) 02/27/2025 7.3 6.1 - 8.1 g/dL Final Albumin, Serum ([facility]) 02/27/2025 5.1 3.6 - 5.1 g/dL Final Bilirubin, Total ([facility]) 02/27/2025 0.5 0.2 - 1.2 mg/dL Final Alkaline Phosphatase ([facility]) 02/27/2025 43 31 - 125 U/L Final AST ([facility]) 02/27/2025 13 10 - 30 U/L Final ALT ([facility]) 02/27/2025 6 6 - 29 U/L Final B12 ([facility]) 02/27/2025 254 200 - 1100 pg/mL Final Please Note: Although the reference range for vitamin B12 is 200-1100 pg/mL, it has been reported that between 5 and 10% of patients with values between 200 and 400 pg/mL may experience neuropsychiatric and hematologic abnormalities due to occult B12 deficiency; less than 1% of patients with values above 400 pg/mL will have symptoms. Folate ([facility]) 02/27/2025 14.5 ng/mL Final Reference Range Low: <3.4 Borderline: 3.4-5.4 Normal: >5.4 Iron ([facility]) 02/27/2025 47 40 - 190 mcg/dL Final Tibc ([facility]) 02/27/2025 333 250 - 450 mcg/dL (calc) Final Iron Saturation ([facility]) 02/27/2025 14 (L) 16 - 45 % (calc) Final WBC ([facility]) 02/27/2025 8.9 3.8 - 10.8 Thousand/uL Final RBC ([facility]) 02/27/2025 5.27 (H) 3.80 - 5.10 Million/uL Final Hemoglobin ([facility]) 02/27/2025 16.1 (H) 11.7 - 15.5 g/dL Final Hematocrit ([facility]) 02/27/2025 49.5 (H) 35.0 - 45.0 % Final MCV ([facility]) 02/27/2025 93.9 80.0 - 100.0 fL Final MCH ([facility]) 02/27/2025 30.6 27.0 - 33.0 pg Final MCHC ([facility]) 02/27/2025 32.5 32.0 - 36.0 g/dL Final For adults, a slight decrease in the calculated MCHC value (in the range of 30 to 32 g/dL) is most likely not clinically significant; however, it should be interpreted with caution in correlation with other red cell parameters and the patient's clinical condition. RDW ([facility]) 02/27/2025 13.2 11.0 - 15.0 % Final Platelets ([facility]) 02/27/2025 325 140 - 400 Thousand/uL Final MPV ([facility]) 02/27/2025 10.4 7.5 - 12.5 fL Final Absolute Neutrophils ([facility]) 02/27/2025 5669 1500 - 7800 cells/uL Final Absolute Lymphocytes ([facility]) 02/27/2025 2394 850 - 3900 cells/uL Final Absolute Monocytes ([facility]) 02/27/2025 668 200 - 950 cells/uL Final Absolute Eosinophils ([facility]) 02/27/2025 116 15 - 500 cells/uL Final Absolute Basophils ([facility]) 02/27/2025 53 0 - 200 cells/uL Final Neutrophils ([facility]) 02/27/2025 63.7 % Final Lymphocytes ([facility]) 02/27/2025 26.9 % Final Monocytes ([facility]) 02/27/2025 7.5 % Final Eosinophils ([facility]) 02/27/2025 1.3 % Final Basophils ([facility]) 02/27/2025 0.6 % Final Assessment & Plan: Nausea and vomiting- Chronic diarrhea- Epigastric pain- Dysphagia- EGD in 2021 was normal, takes PPI inconsistently recently prescribed Carafate, has not started taking Discussed compliance with medications Metamucil or psyllium fiber supplement May use Imodium cautiously as needed Celiac serology panel Patient had her gallbladder out many years ago will trial colestipol 1 g p.o. twice daily Scheduled for EGD with duodenal biopsies by Dr. Norton at [facility] on 03/12/2025 at 9:30 AM Will follow-up after procedure Lindsay Sherman CNP Please note: Portions of this chart may have been created with [email or web address] voice recognition software. Occasional wrong-word or sound-like substitutions may have occurred due to inherent limitations of the voice recognition software. Please read the chart carefully and recognize, using context, where the substitutions have occurred. [1] Social History Socioeconomic History Marital status: Single Tobacco Use Smoking status: Every Day Current packs/day: 1.00 Average packs/day: 1 pack/day for 20.0 years (20.0 ttl pk-yrs) Types: Cigarettes Smokeless tobacco: Never Vaping Use Vaping status: Never Used Substance and Sexual Activity Alcohol use: Not Currently Drug use: Yes Frequency: 7.0 times per week Types: Marijuana Comment: daily use Sexual activity: Yes Partners: Male control/protection: None Social Drivers of Health Financial Resource Strain: High Risk (05/03/2023) Overall Financial Resource Strain (CARDIA) Difficulty of Paying Living Expenses: Very hard Food Insecurity: Food Insecurity Present (08/05/2023) Hunger Vital Sign Worried About Running Out of Food in the Last Year: Often true Ran Out of Food in the Last Year: Sometimes true Transportation Needs: No Transportation Needs (08/05/2023) PRAPARE - Transportation Lack of Transportation (Medical): No Lack of Transportation (Non-Medical): No Physical Activity: Inactive (05/03/2023) Exercise Vital Sign Days of Exercise per Week: 0 days Minutes of Exercise per Session: 0 min Stress: Stress Concern Present (05/03/2023) [employer] - Occupational Stress Questionnaire Feeling of Stress : Very much Social Connections: Socially Isolated (05/03/2023) Social Connection and Isolation Panel [NHANES] Frequency of Communication with Friends and Family: Never Frequency of Social Gatherings with Friends and Family: Never Attends Cheondoism Services: Never Active Member of Clubs or Organizations: No Attends Club or Organization Meetings: Never Marital Status: Living with partner Housing Stability: High Risk (08/05/2023) Housing Stability Vital Sign Unable to Pay for Housing in the Last Year: Yes Number of Places Lived in the Last Year: 5 Unstable Housing in the Last Year: No [2] Current Outpatient Medications Medication Sig Dispense Refill acetaminophen (TYLENOL ER) 650 MG CR tablet Take 1 (one) tablet (650 mg total) by mouth every 8 (eight) hours as needed for pain . 30 tablet 1 albuterol 90 mcg/actuation inhaler Inhale 2 (two) puffs every 6 (six) hours as needed . 6.7 g 0 ascorbic acid, vitamin C, (vitamin C) 1000 MG tablet Take 1 (one) tablet (1,000 mg total) by mouth daily . 90 tablet 0 cyanocobalamin (B-12) 1,000 mcg/mL injection Inject 1 mL (1,000 mcg total) under the skin every 30 (thirty) days . 1 mL 2 cyclobenzaprine (FLEXERIL) 10 MG tablet Take 1 (one) tablet (10 mg total) by mouth 3 (three) times a day as needed for muscle spasms . 30 tablet 0 ferrous sulfate 325 (65 FE) MG tablet Take 1 (one) tablet (325 mg total) by mouth 2 (two) times a day . 180 tablet 0 folic acid (FOLVITE) 1 MG tablet Take 1 (one) tablet (1 mg total) by mouth daily . 90 tablet 0 hydrocortisone (Proctosol HC) 2.5 % rectal cream Insert into the rectum 2 (two) times a day Apply to rectum twice daily for irritation . 30 g 0 hydrOXYzine (ATARAX) 50 MG tablet Take 1 (one) tablet (50 mg total) by mouth every 6 (six) hours . 90 tablet 3 ibuprofen (ADVIL,MOTRIN) 600 MG tablet Take 1 (one) tablet (600 mg total) by mouth every 6 (six) hours as needed for pain . 90 tablet 0 lamoTRIgine (LAMICTAL) 200 MG tablet Take 1 (one) tablet (200 mg total) by mouth daily . Start thisdose after taking 150 mg daily for one week. . 30 tablet 1 levothyroxine (SYNTHROID, LEVOTHROID) 200 MCG tablet Take 1 (one) tablet (200 mcg total) by mouth daily on an empty stomach, with water, 1 hr before food / drinks / meds, and 4 hrs apart from calcium, magnesium, iron, multivitamin supplements. Take double dose next day if miss one day . 90 tablet 0 magnesium oxide (MAG-OX) 400 mg (241.3 mg magnesium) tablet Take 1 (one) tablet (400 mg total) by mouth daily . 90 tablet 0 ondansetron (ZOFRAN-ODT) 4 MG disintegrating tablet Dissolve 1 (one) tablet (4 mg total) on top of tongue every 8 (eight) hours as needed for nausea . 20 tablet 0 pantoprazole (PROTONIX) 40 MG tablet Take 1 (one) tablet (40 mg total) by mouth 2 (two) times a day. 180 tablet 0 potassium chloride (KLOR-CON) 20 mEq packet Take 40 (forty) mEq by mouth 2 (two) times a day for 15days . 60 packet 0 prazosin (MINIPRESS) 1 MG capsule Take 1 (one) capsule (1 mg total) by mouth nightly . 90 capsule 0 sucralfate (CARAFATE) 1 gram tablet Take 1 (one) tablet (1 g total) by mouth 4 (four) times a day before meals . 120 tablet 2 colestipoL (Colestid) 1 gram tablet Take 1 (one) tablet (1 g total) by mouth 2 (two) times a day . 60 tablet 2 potassium chloride (KLOR-CON) 20 mEq packet Take 20 (twenty) mEq by mouth 2 (two) times a day . (Patient not taking: Reported on 03/07/2025 .) 90 packet 0 No current facility-administered medications for this visit. documented in this [id number] Instructions* Patient Instructions* Lindsay Sherman CNP - 03/07/2025 2:17 PM EDT Metamucil daily * Attachments The following attachments cannot be sent through Care Everywhere. * EGD (Upper Endoscopy): Pre-op (French) documented in this [id number] NotePatient Outreach ([facility]) DAMARIS DYKES ([id number]) 1985 F Date Time Provider Department 10/24/24 VARINDER PATEL [facility] During your visit today, we recorded the following information about you: Allergies As of Date: 10/24/2024 Noted Allergy Reaction ADHESIVE TAPE (ROSINS) 10/17/2008 Comments: blisters REMERON (MIRTAZAPINE) 01/12/2011 1 - Mental Status Change Date Reviewed: 03/02/2024 Reviewed by: Carlos Browne MD - Fully Assessed Visit Diagnosis:Encounter for screening mammogram for breast cancer [Z12.31] Order(s):[facility] SCREENING [facility]ACQUI [[id number]] Order #: [id number] FUTURE Prescriptions as of 11/24/2024 - levothyroxine (SYNTHROID) 200 mcg tablet TAKE 1 TABLET BY MOUTH ONCE DAILY BEFORE BREAKFAST - FIBER, CALCIUM POLYCARBOPHIL, ORAL Take by mouth. - etonogestrel (NEXPLANON) 68 mg impl subdermal implant 68 mg by SUBDERMAL route. - lamotrigine (LAMICTAL ORAL) Take 50 mg by mouth once daily. - hydroxyzine HCl (ATARAX ORAL) Take 50 mg by mouth every 6 hours. - trazodone HCl (TRAZODONE ORAL) Take 50 mg by mouth daily at bedtime. - ibuprofen (MOTRIN) 800 mg tablet Take 1 tablet by mouth every 8 hours as needed for pain. - cyanocobalamin (VITAMIN B-12) 1,000 mcg tab Take 1,000 mcg by mouth once daily. - cholecalciferol, vitamin D3, 10 mcg (400 unit) cap Take 400 Units by mouth once daily. - pantoprazole DR (PROTONIX) 40 mg tablet In the morning, TAKE 1 TABLET DAILY ON EMPTY STOMACH Problem List As Of Date 10/24/2024 Noted Resolved PAIN JOINT, KNEE [M25.569] 12/09/2006 Obesity, Class III, BMI 40-49.9 (morbid obesity*12/09/2006 02/23/2022 PLEURAL EFFUSION NOS [J90] 06/27/2008 Supervision of Other High-Risk [O09.8*07/02/2009 03/18/2010 Decreased Movements, Affecting Management*09/05/2009 03/18/2010 Depression [F32.A] 12/17/2010 Plantar fascial fibromatosis [M72.2] 04/05/2012 Vitamin d deficiency [E55.9] 11/07/2012 AGUSTO (obstructive sleep apnea) [G47.33] 07/05/2013 Amenorrhea [N91.2] 10/30/2013 Impaired fasting blood sugar [R73.01] 03/03/2016 Hypertriglyceridemia [E78.1] 03/03/2016 Tetrahydrocannabinol (THC) use disorder, mild, *06/03/2016 Cervicalgia [M54.2] 08/12/2016 Chronic low back pain without sciatica [M54.50,*08/12/2016 Diffuse myofascial pain syndrome [M79.18] 08/12/2016 Myalgia [M79.10] 07/13/2017 Thyroid nodule [E04.1] 06/09/2018 Essential hypertension [I10] 09/20/2020 Gastroesophageal reflux disease [K21.9] 02/17/2021 Gastroesophageal reflux disease with esophagiti*02/24/2021 02/24/2021 Borderline personality disorder (HCC) [F60.3] 10/31/2021 Chronic post-traumatic stress disorder (PTSD) [*10/31/2021 MG (generalized anxiety disorder) [F41.1] 10/31/2021 Bipolar 2 disorder (HCC) [F31.81] 10/31/2021 Acute nonintractable headache [R51.9] 12/09/2021 Word finding difficulty [R47.89] 12/09/2021 Memory deficit [R41.3] 12/09/2021 Bilateral leg paresthesia [R20.2] 12/09/2021 Chronic bilateral thoracic back pain [M54.6, G8*12/09/2021 Thunderclap headache [G44.53] 12/09/2021 Obesity, Class II, BMI 35-39.9 [E66.812] 03/02/2024 Encounter Status:Closed by EPIC, PRODUSER on 11/24/24[facility] 10-07-2024 NoteSubjective Damaris Dykes is a 39 y.o. female who presents to the clinic 3 weeks status post robotic TLH, BS for abnormal uterine bleeding. Eating a regular diet without difficulty. Bowel movements are normal. The patient is not having any pain.. Desires return to work The following portions of the patient's history were reviewed and updated as appropriate: allergies, current medications, past family history, past medical history, past social history, past surgical history, and problem list. Review of Systems Pertinent items are noted in HPI. Objective BP 110/71 Pulse 89 Wt (!) 138.1 kg (304 lb 6.4 oz) LMP 09/02/2024 (Approximate) BMI 43.68 kg/m General: alert, appears stated age, and cooperative Abdomen: soft, bowel sounds active, non-tender Incision: healing well, no drainage, no erythema, no hernia, no seroma, no swelling, no dehiscence, incision well approximated Vaginal cuff intact Remove drug implant device Date/Time: 10/06/2024 2:52 PM Performed by: Tory Vela MD Authorized by: Tory Vela MD Consent: Consent obtained: Verbal and written Consent given by: Patient Procedural risks discussed: Bleeding, possible continued pain, possible conversion to open surgery, damage to other organs, , possible loss of function, repeat procedure, failure rate and infection Patient questions answered: yes Patient agrees, verbalizes understanding, and wants to proceed: yes Educational handouts given: yes Instructions and paperwork completed: yes Indication: Indication: Presence of non-biodegradable drug delivery implant Pre-procedure: Pre-procedure timeout performed: yes Prepped with: alcohol 70% and povidone-iodine Local anesthetic: Lidocaine with epinephrine The site was cleaned and prepped in a sterile fashion: yes Procedure: Procedure: Removal Small stab incision was made in arm: yes Left/right: Left Comments: Stab incision made, nexplanon grasped with hemostat and removed intact. Steri-strip placed and hemostatic. Pt tolerated procedure well Assessment: Doing well postoperatively. Nexplanon removed Plan: 1. Continue any current medications. - Wound care with neplanon removal discussed - Activity restrictions: reviewed - Anticipated return to work: now with light duty, letter provided . Nothing inside vagina 4 more weeks - Follow up: annually/PRN Tory Vela MD AUTHENTICATED BY TORY VELA, ON 10/07/2024 17:55:31[facility]03-08-2025 History of Present illness Narrative* Tory Vela MD - 10/07/2024 5:41 PM ESTAssociated Order(s): Remove drug implant device Post-Procedure Diagnose(s): Nexplanon removal Subjective Damaris Dykes is a 39 y.o. female who presents to the clinic 3 weeks status post robotic TLH, BS for abnormal uterine bleeding. Eating a regular diet without difficulty. Bowel movements are normal. The patient is not having any pain.. Desires return to work The following portions of the patient's history were reviewed and updated as appropriate: allergies, current medications, past family history, past medical history, past social history, past surgicalhistory, and problem list. Review of Systems Pertinent items are noted in HPI. Objective BP 110/71 Pulse 89 Wt (!) 138.1 kg (304 lb 6.4 oz) LMP 09/02/2024 (Approximate) BMI 43.68 kg/m General: alert, appears stated age, and cooperative Abdomen: soft, bowel sounds active, non-tender Incision: healing well, no drainage, no erythema, no hernia, no seroma, no swelling, no dehiscence,incision well approximated Vaginal cuff intact Remove drug implant device Date/Time: 10/06/2024 2:52 PM Performed by: Tory Vela MD Authorized by: oTry Vela MD Consent: Consent obtained: Verbal and written Consent given by: Patient Procedural risks discussed: Bleeding, possible continued pain, possible conversion to open surgery,damage to other organs, , possible loss of function, repeat procedure, failure rate and infection Patient questions answered: yes Patient agrees, verbalizes understanding, and wants to proceed: yes Educational handouts given: yes Instructions and paperwork completed: yes Indication: Indication: Presence of non-biodegradable drug delivery implant Pre-procedure: Pre-procedure timeout performed: yes Prepped with: alcohol 70% and povidone-iodine Local anesthetic: Lidocaine with epinephrine The site was cleaned and prepped in a sterile fashion: yes Procedure: Procedure: Removal Small stab incision was made in arm: yes Left/right: Left Comments: Stab incision made, nexplanon grasped with hemostat and removed intact. Steri- strip placed and hemostatic. Pt tolerated procedure well Assessment: Doing well postoperatively. Nexplanon removed Plan: 1. Continue any current medications. - Wound care with neplanon removal discussed - Activity restrictions: reviewed - Anticipated return to work: now with light duty, letter provided . Nothing inside vagina 4 more weeks - Follow up: annually/PRN Tory Vela MD documented in this [id number] Telephone encounter Note* Telephone Encounter - Carlos Browne MD - 09/25/2024 2:38 PM EST Please schedule f/u appointment [facility]02-24-2025 Miscellaneous Notes* Telephone Encounter - Carlos Browne MD - 09/25/2024 2:38 PM EST Please schedule f/u appointment * Telephone Encounter - Isidro Chaudhary LPN - 09/25/2024 7:04 AM EST Pharmacy interfaced requesting the following refill. Requested Prescriptions Pending Prescriptions Disp Refills levothyroxine (SYNTHROID) 200 mcg tablet [Pharmacy Med Name: Levothyroxine Sodium 200 MCG Oral Tablet] 30 tablet 0 Sig: TAKE 1 TABLET BY MOUTH ONCE DAILY BEFORE BREAKFAST Patient last appointment: 03/02/2024 Next Appointment: Visit date not found Patient Phone numbers: [phone] (home) Request is for script(s) to be escript to pharmacy. Isidro Chaudhary LPN [facility] Telephone encounter Note * Telephone Encounter - Isidro Chaudhary LPN - 09/25/2024 7:04 AM EST Pharmacy interfaced requesting the following refill. Requested Prescriptions Pending Prescriptions Disp Refills levothyroxine (SYNTHROID) 200 mcg tablet [Pharmacy Med Name: Levothyroxine Sodium 200 MCG Oral Tablet] 30 tablet 0 Sig: TAKE 1 TABLET BY MOUTH ONCE DAILY BEFORE BREAKFAST Patient last appointment: 03/02/2024 Next Appointment: Visit date not found Patient Phone numbers: [phone] (home) Request is for script(s) to be escript to pharmacy. Isidro Chaudhary LPN [facility]02-20-2025 NoteSubjective Damaris Dykes is a 39 y.o. female who presents to the clinic 1 weeks status post robotic TLH-BS for abnormal uterine bleeding. Eating a regular diet without difficulty. Bowel movements are normal. Pain is mild and controlled. 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 Pathology: uterus with weakly proliferative endometrium, normal cervix The following portions of the patient's history were reviewed and updated as appropriate: allergies, current medications, past family history, past medical history, past social history, past surgical history, and problem list. Review of Systems Pertinent items are noted in HPI. Objective BP 107/74 Pulse 73 Wt (!) 138.1 kg (304 lb 6.4 oz) LMP 09/02/2024 (Approximate) BMI 43.68 kg/m General: alert, appears stated age, and cooperative Abdomen: soft, bowel sounds active, non-tender Incision: healing well, no drainage, no erythema, no hernia, no seroma, no swelling, no dehiscence, incision well approximated Pelvic: running cuff stitch in place, vaginal cuff intact Assessment: Doing well postoperatively. Operative findings again reviewed. Pathology report discussed. Plan: 1. Continue any current medications. - Wound care discussed. - Activity restrictions: no lifting more than 15 pounds - Anticipated return to work: 2-3 weeks. - Follow up: 2 weeks. Tory Vela MD AUTHENTICATED BY TORY VELA, ON 09/21/2024 16:48:17[facility]02-20-2025 History of Present illness Narrative* Tory Vela MD - 09/21/2024 1:58 PM EST Subjective Damaris Dykes is a 39 y.o. female who presents to the clinic 1 weeks status post robotic TLH-BS for abnormal uterine bleeding. Eating a regular diet without difficulty. Bowel movements are normal. Pain is mild and controlled. 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 Pathology: uterus with weakly proliferative endometrium, normal cervix The following portions of the patient's history were reviewed and updated as appropriate: allergies, current medications, past family history, past medical history, past social history, past surgicalhistory, and problem list. Review of Systems Pertinent items are noted in HPI. Objective BP 107/74 Pulse 73 Wt (!) 138.1 kg (304 lb 6.4 oz) LMP 09/02/2024 (Approximate) BMI 43.68 kg/m General: alert, appears stated age, and cooperative Abdomen: soft, bowel sounds active, non-tender Incision: healing well, no drainage, no erythema, no hernia, no seroma, no swelling, no dehiscence,incision well approximated Pelvic: running cuff stitch in place, vaginal cuff intact Assessment: Doing well postoperatively. Operative findings again reviewed. Pathology report discussed. Plan: 1. Continue any current medications. - Wound care discussed. - Activity restrictions: no lifting more than 15 pounds - Anticipated return to work: 2-3 weeks. - Follow up: 2 weeks. Tory Vela MD documented in this [id number] NotePre-Operative H&P Assessment and Plan Abnormal uterine bleeding Pt scheduled to undergo a HYSTERECTOMY ROBOTIC XI WITH BILATERAL SALPINGECTOMY with Dr. Vela on 09/12/2024. Thyroid nodule S/P thyroidectomy Last TSH was 8.30 on 08/25/2024. PCP aware and patient states her levothyroxine dosage will be increased. Continue levothyroxine perioperatively. Bipolar 1 disorder (HCC) Stable with medical therapy- continue perioperatively. Anemia Stable per recent CBC. Continue ferrous sulfate as prescribed. GERD (gastroesophageal reflux disease) Stable with pantoprazole- continue perioperatively. Pre-op examination MARIE score indicates a less than 1% risk of [place] or cardiac arrest, intraoperatively or up to 30 days post-op. Pt denies chest pain, abnormal SOB with exertion, syncope or near syncopal episodes, PND, orthopnea, or pedal edema. Intermittent palpitations- currently wearing Holter monitor. Not during exertion or stress. METS greater than 4. Apfel score of 2; 39% 24-hour risk of PONV. She does report a history of vocal cord paralysis after thyroidectomy. Please see AGUSTO risk assessment. Recommend hospital AGUSTO protocol with utilization of ETCO2 monitoring for patients with or at risk for AGUSTO while on IV opiates. Vital signs are within acceptable limits for surgery. Recent labs reviewed. 30 Holter results will most likely not be in before surgery- will discuss with anesthesia. Nicotine dependence 3/4 pack of cigarettes per day. Chief Complaint Patient presents with Pre-operative Medical Risk Stratification History of Present Illness Damaris Dykes is a 39 y.o. female who presents at the request of Dr. Rebolledo prior to HYSTERECTOMY ROBOTIC XI WITH BILATERAL SALPINGECTOMY. Damaris has a past medical history that consists of anemia, hypothyroidism, GERD, nicotine dependence, hypertension, hyperlipidemia, abnormal uterine bleeding, and bipolar disorder. She denies previous complications with anesthesia. She denies cardiopulmonary complaints. Preoperative medication instructions have been provided. Please see below regarding status of active medical conditions and assessment and plan regarding details of preoperative medical risk stratification. 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 Past Surgical History: Procedure Laterality Date CARPAL TUNNEL RELEASE OPEN Right 04/29/2023 Surgeon: Varinder Mohr MD CHOLECYSTECTOMY COLONOSCOPY 11/10/[address] [facility], normal COLONOSCOPY N/A 05/14/2023 with biopsy; Surgeon: Brandon Norton MD COLPOSCOPY DILATION AND CURETTAGE OF UTERUS ESOPHAGOGASTRODUODENOSCOPY 02/24/[address] [facility], mild chronic inactive gastritis with rare h-pylori LUNG SURGERY Left early s, filled with fluid MULTIPLE TOOTH EXTRACTIONS wears dentures PIERCINGS AND TATTOOS PLANTAR FASCIA SURGERY Bilateral THORACENTESIS THYROIDECTOMY Bilateral 08/04/2023 TOTAL THYROIDECTOMY-papillary carcinoma classic subtype pT1a pN......Dr. Gilles Kim US THYROID BIOPSY WITH FNA 06/08/2023 US THYROID BIOPSY WITH FNA 06/08/2023 Danny Arevalo DO ULTRASOUND Social History Tobacco Use Smoking status: Every Day Current packs/day: 1.00 Average packs/day: 1 pack/day for 20.0 years (20.0 ttl pk-yrs) Types: Cigarettes Smokeless tobacco: Never Substance Use Topics Alcohol use: Not Currently Family History Problem Relation Age of Onset Arthritis Mother Diabetes Mother edentulous Achalasia Mother Asthma Mother with atopy Hypertension Mother Other (psychiatric disorder) Mother Stroke Mother Thyroid disease Mother Fibromyalgia Mother Sleep apnea Mother Restless legs syndrome Mother Peripheral vascular disease Mother Hypertension Father Peripheral vascular disease Father Achalasia Maternal Grandmother Alzheimer's disease Maternal Grandmother COPD Maternal Grandmother Coronary artery disease Maternal Grandmother Heart attack Maternal Grandmother Diabetes Maternal Grandmother Rheum arthritis Maternal Grandmother Breast cancer Paternal Grandmother Asthma Brother atopy Colon (more content not included)...[facility]01-20-2025 NoteEndometrial biopsy Date/Time: 08/21/2024 3:34 PM Performed by: Tory Vela MD Authorized by: Tory Vela MD Consent: Consent obtained: verbal and written Consent given by: patient Risks discussed: bleeding, conversion to surgery, , damage to other organs, loss of function, infection, need for repeat procedure and pain Patient agrees, verbalizes understanding, and wants to proceed: yes Indications: Indications: abnormal uterine bleeding Pre-procedure: Urine test: negative Premeds: acetaminophen Procedure: A bimanual exam was performed: no Prepped with: Betadine Tenaculum used: yes A local block was performed: no Cervix dilated: no Number of passes: 1 Findings: Cervix: normal Specimen collected: specimen collected and sent to pathology Patient tolerance: tolerated well, no immediate complications AUTHENTICATED BY TORY VELA, ON 08/21/2024 15:50:29[facility]01-20-2025 History of Present illness Narrative* Tory Vela MD - 08/21/2024 3:26 PM ESTAssociated Order(s): Endometrial biopsy Endometrial biopsy Date/Time: 08/21/2024 3:34 PM Performed by: Tory Vela MD Authorized by: Tory Vela MD Consent: Consent obtained: verbal and written Consent given by: patient Risks discussed: bleeding, conversion to surgery, , damage to other organs, loss of function, infection, need for repeat procedure and pain Patient agrees, verbalizes understanding, and wants to proceed: yes Indications: Indications: abnormal uterine bleeding Pre-procedure: Urine test: negative Premeds: acetaminophen Procedure: A bimanual exam was performed: no Prepped with: Betadine Tenaculum used: yes A local block was performed: no Cervix dilated: no Number of passes: 1 Findings: Cervix: normal Specimen collected: specimen collected and sent to pathology Patient tolerance: tolerated well, no immediate complications documented in this [id number] NoteOFFICE VISIT REASON FOR VISIT Surveillance for thyroid cancer s/p total thyroidectomy. Subjective States gets intermittent throat pain. Her coughing with swallowing and saliva is improved so she elected not to get further treatment with Dr. Dobbins 1 year ago. Vitals BP 98/65 Pulse 93 Resp 14 Ht 5' 10 Wt 131.5 kg (290 lb) SpO2 98% BMI 41.61 kg/m Exam Alert, NAD, cooperative, gait normal Neck: no LA, no masses Labs, Imaging, Pathology Assessment / Plan / Follow-up Thyroid CA. JOSUE. F/u in 1 year. Vocal cord paralysis and throat pain - not sure if these are related. Re-referred to Dr. Dobbins. AUTHENTICATED BY GILLES KIM, ON 08/14/2024 09:51:23[facility] 08-14-2024 History of Present illness Narrative* Gilles Kim MD - 08/14/2024 9:49 AM EST OFFICE VISIT REASON FOR VISIT Surveillance for thyroid cancer s/p total thyroidectomy. Subjective States gets intermittent throat pain. Her coughing with swallowing and saliva is improved so she elected not to get further treatment with Dr. Dobbins 1 year ago. Vitals BP 98/65 Pulse 93 Resp 14 Ht 5' 10 Wt 131.5 kg (290 lb) SpO2 98% BMI 41.61 kg/m Exam Alert, NAD, cooperative, gait normal Neck: no LA, no masses Labs, Imaging, Pathology Assessment / Plan / Follow-up Thyroid CA. JOSUE. F/u in 1 year. Vocal cord paralysis and throat pain - not sure if these are related. Re- referred to Dr. Dobbins. documented in this [id number] NoteSubjective Patient ID: Damaris Dykes is a 39 y.o. . HPI 39 y.o. presents for consult for heavy AUB, worsening over past 2-3 yrs. Previous medications have including progestin IUD, depo-provera, and most recently nexplanon. Has bled almost daily since May. Bleeding ranges from spotting to heavy bleeding with changing protection within 2 hours. At times she passes small clots. Has mild dysmenorrhea. Recent hx of thyroid cancer, treated. Pelvic US today: uterus 8.3 x 5.6cm, thin endo stripe, R simple cyst 2.8 x 1.6cm, normal L ovary Last TSH 1.06 in April Hgb 13.3 yesterday The following portions of the patient's history were reviewed and updated as appropriate: allergies, current medications, past family history, past medical history, past social history, past surgical history, and problem list. Review of Systems Constitutional: Negative for fatigue and fever. Gastrointestinal: Negative for constipation and diarrhea. Genitourinary: Positive for pelvic pain and vaginal bleeding. Negative for dysuria, frequency and vaginal discharge. Objective Physical Exam Constitutional: General: She is not in acute distress. Appearance: Normal appearance. She is obese. Neurological: Mental Status: She is alert. Assessment/Plan: Diagnoses and all orders for this visit: Abnormal uterine bleeding - US and labs reviewed. Med mgmt not helping despite multiple attempts. Will check EMB at this point to exclude hyperplasia. Discussed progestin meds, Mirena IUD, endometrial ablation, and hysterectomy. With this being ongoing and multiple medications failed, she desires to proceed with definitive mgmt with hysterectomy at this point. Discussed TVH vs robotic TLH, plus salpingectomy. Would keep ovaries in place. Risks, benefits, and alternatives to procedure discussed in detail, including but not limited to risk of infection, bleeding requiring transfusion of blood products, damage to surrounding organs, risk of anesthesia, and possible . Pt expresses understanding and wishes to proceed. Will schedule once EMB returns. Breakthrough bleeding on Nexplanon Tory Vela MD AUTHENTICATED BY TORY VELA, ON 08/07/2024 08:17:16[facility]01-02-2025 History of Present illness Narrative* Tory Vela MD - 08/03/2024 2:29 PM EST Subjective Patient ID: Damaris Dykes is a 39 y.o. . HPI 39 y.o. presents for consult for heavy AUB, worsening over past 2-3 yrs. Previous medications have including progestin IUD, depo-provera, and most recently nexplanon. Has bled almost daily since May. Bleeding ranges from spotting to heavy bleeding with changing protection within 2 hours. At times she passes small clots. Has mild dysmenorrhea. Recent hx of thyroid cancer, treated. Pelvic US today: uterus 8.3 x 5.6cm, thin endo stripe, R simple cyst 2.8 x 1.6cm, normal L ovary Last TSH 1.06 in April Hgb 13.3 yesterday The following portions of the patient's history were reviewed and updated as appropriate: allergies, current medications, past family history, past medical history, past social history, past surgicalhistory, and problem list. Review of Systems Constitutional: Negative for fatigue and fever. Gastrointestinal: Negative for constipation and diarrhea. Genitourinary: Positive for pelvic pain and vaginal bleeding. Negative for dysuria, frequency and vaginal discharge. Objective Physical Exam Constitutional: General: She is not in acute distress. Appearance: Normal appearance. She is obese. Neurological: Mental Status: She is alert. Assessment/Plan: Diagnoses and all orders for this visit: Abnormal uterine bleeding - US and labs reviewed. Med mgmt not helping despite multiple attempts. Will check EMB at this point to exclude hyperplasia. Discussed progestin meds, Mirena IUD, endometrial ablation, and hysterectomy. With this being ongoing and multiple medications failed, she desires to proceed with definitive mgmt with hysterectomy at this point. Discussed TVH vs robotic TLH, plus salpingectomy. Would keep ovaries in place. Risks, benefits, and alternatives to procedure discussed in detail, including but not limited to risk of infection, bleeding requiring transfusion of blood products, damage to surrounding organs, risk of anesthesia, and possible . Pt expresses understanding and wishes to proceed. Will schedule once EMB returns. Breakthrough bleeding on Nexplanon Tory Vela MD documented in this [id number] NoteSubjective Patient ID: Damaris Dykes is a 39 y.o. female. Damaris is here today for batchmaker problem visit due to heavy bleeding. This has been an intermittent concern over the last several years. During the last several years, she has tried several hormonal options to try to help with the bleeding and none of those have provided consistent help. She has had an IUD that she states did not control her bleeding at all. She states that Dep[employer] worked for about 1 year of the several years that she utilized that. She did have a Nexplanon placed earlier this year on 09/28/2023. She states that it has not helped to slow her bleeding. Soon after placement she had constant spotting. She reports one 7 day period followed by a 7 day break and then spotting started again. She states that she goes between constant spotting to heavy bleeding. Since May, she states that she started having heavy bleeding every day. She states that the bleeding stopped for about 4 days and then restarted heavy again. She is using pads for her bleeding and she is filling a pad about every 2 hours. She is having discomfort from constant pad usage. She also has a history of anemia. She has had discussions with previous batchmaker providers about having hysterectomy, but at that time was over 400 pounds and was told she would not be a good candidate. She has lost over 100 pounds since that original discussion about hysterectomy. She really is desiring to have a hysterectomy as her bleeding has been an ongoing issue over several years. Today we also discussed other options including uterine ablation or UAE. Today we discussed having TVUS and scheduling with physician to discuss surgical options for her AUB. We also discussed TXA today as short term option to try to stop her current bleeding. The following portions of the patient's history were reviewed and updated as appropriate: allergies, current medications, past family history, past medical history, past social history, past surgical history, and problem list. Review of Systems Constitutional: Positive for fatigue. Objective Physical Exam Vitals and nursing note reviewed. Constitutional: Appearance: She is obese. She is not ill-appearing. HENT: Head: Normocephalic. Pulmonary: Effort: Pulmonary effort is normal. Genitourinary: General: Normal vulva. Vagina: Bleeding (large amount of blood present in vault and also noted to be on patient's thighs) present. Cervix: Normal. Uterus: Normal. Adnexa: Right adnexa normal and left adnexa normal. Skin: General: Skin is warm and dry. Neurological: Mental Status: She is alert. Psychiatric: Attention and Perception: Attention normal. Mood and Affect: Mood normal. Speech: Speech normal. Thought Content: Thought content normal. Judgment: Judgment normal. Assessment/Plan: Diagnoses and all orders for this visit: Abnormal uterine bleeding - US Transvaginal; Future - tranexamic acid (LYSTEDA) 650 mg tablet; Take 2 (two) tablets (1,300 mg total) by mouth 3 (three) times a day for 5 days . -Discussed other hormonal options today including RAFFI to help with bleeding, declines at this time -will try TXA for current bleeding; R/B/I reviewed - Desiring surgical option for several years of heavy bleeding -Schedule with physician for follow up and to discuss surgical options for AUB -TVUS scheduled Evangelista Myles APRN, CNM AUTHENTICATED BY EVANGELISTA MYLES, ON 06/20/2024 12:36:14[facility] 06-20-2024 History of Present illness Narrative* Evangelista Myles CNM - 06/20/2024 12:20 PM EST Subjective Patient ID: Damaris Dykes is a 39 y.o. female. Damaris is here today for batchmaker problem visit due to heavy bleeding. This has been an intermittent concern over the last several years. During the last several years, she has tried several hormonal options to try to help with the bleeding and none of those have provided consistent help. She has had an IUD that she states did not control her bleeding at all. She states that DepoProvera worked for about 1 year of the several years that she utilized that. She did have a Nexplanon placed earlier this year on 09/28/2023. She states that it has not helped to slow her bleeding. Soon after placement she had constant spotting. She reports one 7 day period followed by a 7 day break and then spotting started again. She states that she goes between constant spotting to heavy bleeding. Since May, she states that she started having heavy bleeding every day. She states that the bleeding stopped for about 4 days and then restarted heavy again. She is using pads for her bleeding and she is filling a pad about every 2 hours. She is having discomfort from constant pad usage. She also has a history of anemia. She has had discussions with previous batchmaker providers about having hysterectomy, but at that time wasover 400 pounds and was told she would not be a good candidate. She has lost over 100 pounds since that original discussion about hysterectomy. She really is desiring to have a hysterectomy as her bleeding has been an ongoing issue over several years. Today we also discussed other options including uterine ablation or UAE. Today we discussed having TVUS and scheduling with physician to discuss surgical options for her AUB. We also discussed TXA today as short term option to try to stop her current bleeding. The following portions of the patient's history were reviewed and updated as appropriate: allergies, current medications, past family history, past medical history, past social history, past surgicalhistory, and problem list. Review of Systems Constitutional: Positive for fatigue. Objective Physical Exam Vitals and nursing note reviewed. Constitutional: Appearance: She is obese. She is not ill-appearing. HENT: Head: Normocephalic. Pulmonary: Effort: Pulmonary effort is normal. Genitourinary: General: Normal vulva. Vagina: Bleeding (large amount of blood present in vault and also noted to be on patient's thighs) present. Cervix: Normal. Uterus: Normal. Adnexa: Right adnexa normal and left adnexa normal. Skin: General: Skin is warm and dry. Neurological: Mental Status: She is alert. Psychiatric: Attention and Perception: Attention normal. Mood and Affect: Mood normal. Speech: Speech normal. Thought Content: Thought content normal. Judgment: Judgment normal. Assessment/Plan: Diagnoses and all orders for this visit: Abnormal uterine bleeding - US Transvaginal; Future - tranexamic acid (LYSTEDA) 650 mg tablet; Take 2 (two) tablets (1,300 mg total) by mouth 3 (three)times a day for 5 days . -Discussed other hormonal options today including RAFFI to help with bleeding, declines at this time -will try TXA for current bleeding; R/B/I reviewed - Desiring surgical option for several years of heavy bleeding -Schedule with physician for follow up and to discuss surgical options for AUB -TVUS scheduled Evangelista Myles APRN, CNM documented in this [id number] NotePatient Outreach (AGA) DAMARIS DYKES ([id number]) 1985 F Date Time Provider Department 05/17/24 [facility] During your visit today, we recorded the following information about you: Allergies As of Date: 05/17/2024 Noted Allergy Reaction ADHESIVE TAPE (ROSINS) 10/17/2008 Comments: blisters REMERON (MIRTAZAPINE) 01/12/2011 1 - Mental Status Change Date Reviewed: 03/02/2024 Reviewed by: Carlos Browne MD - Fully Assessed Visit Diagnoses:Impaired fasting blood sugar [R73.01] Hypertriglyceridemia [E78.1] Order(s):HEMOGLOBIN A1C [YUENL6M] Order #: [id number] FUTURE LIPID PANEL BASIC [SQLIPB] Order #: [id number] FUTURE Prescriptions as of 05/22/2024 - FIBER, CALCIUM POLYCARBOPHIL, ORAL Take by mouth. - levothyroxine (SYNTHROID) 200 mcg tablet Take 1 tablet by mouth daily before breakfast. - etonogestrel (NEXPLANON) 68 mg impl subdermal implant 68 mg by SUBDERMAL route. - lamotrigine (LAMICTAL ORAL) Take 50 mg by mouth once daily. - hydroxyzine HCl (ATARAX ORAL) Take 50 mg by mouth every 6 hours. - trazodone HCl (TRAZODONE ORAL) Take 50 mg by mouth daily at bedtime. - ibuprofen (MOTRIN) 800 mg tablet Take 1 tablet by mouth every 8 hours as needed for pain. - cyanocobalamin (VITAMIN B-12) 1,000 mcg tab Take 1,000 mcg by mouth once daily. - cholecalciferol, vitamin D3, 10 mcg (400 unit) cap Take 400 Units by mouth once daily. - pantoprazole DR (PROTONIX) 40 mg tablet In the morning, TAKE 1 TABLET DAILY ON EMPTY STOMACH Problem List As Of Date 05/17/2024 Noted Resolved PAIN JOINT, KNEE [M25.569] 12/09/2006 Obesity, Class III, BMI 40-49.9 (morbid obesity*12/09/2006 02/23/2022 PLEURAL EFFUSION NOS [J90] 06/27/2008 Supervision of Other High-Risk [O09.8*07/02/2009 03/18/2010 Decreased Movements, Affecting Management*09/05/2009 03/18/2010 Depression [F32.A] 12/17/2010 Plantar fascial fibromatosis [M72.2] 04/05/2012 Vitamin d deficiency [E55.9] 11/07/2012 AGUSTO (obstructive sleep apnea) [G47.33] 07/05/2013 Amenorrhea [N91.2] 10/30/2013 Impaired fasting blood sugar [R73.01] 03/03/2016 Hypertriglyceridemia [E78.1] 03/03/2016 Tetrahydrocannabinol (THC) use disorder, mild, *06/03/2016 Cervicalgia [M54.2] 08/12/2016 Chronic low back pain without sciatica [M54.50,*08/12/2016 Diffuse myofascial pain syndrome [M79.18] 08/12/2016 Myalgia [M79.10] 07/13/2017 Thyroid nodule [E04.1] 06/09/2018 Essential hypertension [I10] 09/20/2020 Gastroesophageal reflux disease [K21.9] 02/17/2021 Gastroesophageal reflux disease with esophagiti*02/24/2021 02/24/2021 Borderline personality disorder (HCC) [F60.3] 10/31/2021 Chronic post-traumatic stress disorder (PTSD) [*10/31/2021 GM (generalized anxiety disorder) [F41.1] 10/31/2021 Bipolar 2 disorder (HCC) [F31.81] 10/31/2021 Acute nonintractable headache [R51.9] 12/09/2021 Word finding difficulty [R47.89] 12/09/2021 Memory deficit [R41.3] 12/09/2021 Bilateral leg paresthesia [R20.2] 12/09/2021 Chronic bilateral thoracic back pain [M54.6, G8*12/09/2021 Thunderclap headache [G44.53] 12/09/2021 Obesity, Class II, BMI 35-39.9 [E66.812] 03/02/2024 Encounter Status:Closed by EPIC, PRODUSER on 05/22/24[facility]09-16-2024 Telephone encounter Note* Telephone Encounter - Leonela Hamilton - 04/17/2024 4:11 PM EDT Received an appointment confirmation sheet from [facility] to fill out once patient is scheduled. Scanned blank copy into patient's chart. Please print once patient is scheduled and fax back. Leonela Hamilton [facility]09-16-2024 Miscellaneous Notes* Telephone Encounter - Leonela Hamilton - 04/17/2024 4:11 PM EDT Received an appointment confirmation sheet from [facility] to fill out once patient is scheduled. Scanned blank copy into patient's chart. Please print once patient is scheduled and fax back. Leonela Hamilton documented [facility] Telephone encounter Note * Telephone Encounter - Josee Boyd MA - 03/14/2024 4:18 PM EDT Authorization #: Approved Lab Results: not required Test date and time: 03/29/24 1:30 pm Facility for test: [facility] Name of test: MRI cervical spine w/o IV contrast Patient cancelled test as she is moving out of the area Josee Boyd MA March 14, 2024 4:[address] [facility]08-13-2024 Miscellaneous Notes* Telephone Encounter - Josee Boyd MA - 03/14/2024 4:18 PM EDT Authorization #: Approved Lab Results: not required Test date and time: 03/29/24 1:30 pm Facility for test: [facility] Name of test: MRI cervical spine w/o IV contrast Patient cancelled test as she is moving out of the area Josee Boyd MA March 14, 2024 4:19 PM documented in this [facility]24 Telephone encounter Note * Telephone Encounter - Josee Boyd MA - 03/14/2024 4:16 PM EDT Authorization #: not required Lab Results: not required Test date and time: 04/26/24 8:50 am Facility for test: [facility] Name of test: EMG bilateral hands Patient cancelled test as she is moving out of the area Josee Boyd MA March 14, 2024 4:[address] [facility]08-13-2024 Miscellaneous Notes* Telephone Encounter - Josee Boyd MA - 03/14/2024 4:16 PM EDT Authorization #: not required Lab Results: not required Test date and time: 04/26/24 8:50 am Facility for test: [facility] Name of test: EMG bilateral hands Patient cancelled test as she is moving out of the area Josee Boyd MA March 14, 2024 4:17 PM documented in this encounterMer[facility]-2024 NoteHNO ID: [id number] Author: CARLOS BROWNE MD Service: ? Author Type: Physician Type: Progress Notes Filed: 03/02/2024 18:27 Note Text: PCP: Michelle Rain CNP. Referring Provider: Power Parker MD Subjective The history is provided by the patient. Damaris Dykes is a 38 year old White female with PMHx of DDD, bipolar disorder, schizoaffective disorder who presented to the endocrine clinic for postoperative hypothyroidism s/p total thyroidectomy evaluation and management History of present illness Initial History: (03/02/24) The patient was previously followed by endocrinology before she recently moved. She was previously followed by Mo Kaur MD at [facility] Endocrine note on 10/19/2023 was reviewed and history was confirmed by the patient. She initially presented with right thyroid nodule which has been stable for many years, however recent FNA showed AUS with suspicious Afirma. Subsequently the patient underwent total thyroidectomy on 08/04/2023 and was found to have incidental papillary microcarcinoma. Postoperative course was complicated by transient hypocalcemia and unilateral vocal cord paralysis. She was initially started on levothyroxine 175 mcg daily which was recently increased to 200 mcg daily based on TSH level of 8.17. Her levothyroxine was adjusted multiple times by her primary care physician. She confirms adherence to levothyroxine which she takes in the morning around 5 AM and goes back to sleep. She complains of temperature dysregulation mostly heat intolerance. Thepatient reports chronic GI symptoms including diarrhea and constipation, loss of appetite which has resulted in unintentional 150 pounds weight loss. She gets some relief of her GI symptoms by smoking marijuana. She also has history of chronic hypokalemia requiring IV treatment. Review of Systems Constitutional: Positive for malaise/fatigue. Gastrointestinal: Positive for diarrhea, nausea and vomiting. Musculoskeletal: Positive for back pain, joint pain and myalgias. Neurological: Positive for dizziness. HISTORY REVIEWED (electronic chart updated): PAST MEDICAL HISTORY No date: Abnormal glandular Papanicolaou smear of cervix Comment: Abn. Pap smear (cervix) No date: Arthritis No date: Closed dislocation of knee, unspecified part Comment: left No date: Depression Comment: MDD, [facility] No date: DJD (degenerative joint disease), lumbar 09/20/2020: Essential hypertension No date: Heel spur 03/2014: Hypertriglyceridemia No date: Impaired fasting glucose No date: Methamphetamine abuse (HCC) No date: Obesity, unspecified No date: Obstructive sleep apnea Comment: no longer using C-pap No date: Other specified disorder of gallbladder No date: Pleurisy without mention of effusion or current tuberculosis Comment: Pleurisy No date: Social phobia Comment: MDD, [facility] [employer] 10/2013, 06/2014: Suicidal ideation No date: Tetrahydrocannabinol (THC) use disorder, mild, abuse No date: Thyroid cancer (HCC) No date: Thyroid nodule 03/2014: Vitamin D deficiency PAST SURGICAL HISTORY No date: ABDOMINAL SURGERY HX 11/10/2021: COLONOSCOPY No date: COLPOSCOPY CERVIX UPPER/ADJACENT VAGINA Comment: Colposcopy 11/10/2021: EGD W/O BRSH SPEC VARICIES INJ 02/24/2021: ESOPHAGOGASTRODUODENOSCOPY TRANSORAL DIAGNOSTIC 02/18/2017: HYSTEROSCOPY Comment: NESTOR, hysteroscopy and IUD removal / reinsertion 08/23/2007: LAPS SURG CHOLECYSTECTOMY W/CHOLANGIOGRAPHY No date: OTHER Comment: bilateral plantar fasciectomy 07/2008: PAST SURGICAL HISTORY OF Comment: L lung surgery- 2006: TEETH COMPLETE Comment: ? peridontal disease 03/21/2008: THORACENTESIS 08/2023: THYROIDECTOMY FAMILY HISTORY Problem Relation Age of Onset Asthma Mother with atopy Diabetes Mother edentulous Hypertension Mother Psychiatry Mother Stroke Mother Thyroid Mother other (fibromyalgia) Mother other (sleep apnea) Mother RLS other (peripheral vascular disease) Mother Hypertension Father other (Peripheral vascular Disease) Father Alzheimer's Disease Maternal Grandmother COPD Maternal Grandmother Coronary Artery Disease Maternal Grandmother [place] Diabetes Maternal Grandmother Emphysema Maternal Grandmother Heart Maternal Grandmother other (RA) Maternal Grandmother Breast Cancer Paternal Grandmother Asthma Brother with atopy Social History Tobacco Use Smoking status: Every Day Packs/day: 1.00 Years: 22.00 Additional pack years: 0.00 Total pack years: 22.00 Types: Cigarettes Last attempt to quit: 08/26/2018 Years since quittin.5 Smokeless tobacco: Never Vaping Use Vaping Use: Never used Substance Use Topics Alcohol use: No Drug use: Yes Types: Marijuana Comment: Medical marijuana card, stopped using 01-27-2022, states Current Outpatient Medications Medication Sig Dispense Refill (more content not included)...[facility]08-01-2024 History of Present illness Narrative* Carlos Browne MD - 03/02/2024 2:41 PM EDT PCP: Michelle Rain CNP. Referring Provider: Power Parker MD Subjective The history is provided by the patient. Damaris Dykes is a 38 year old White female with PMHx of DDD, bipolar disorder, schizoaffective disorder who presented to the endocrine clinic for postoperative hypothyroidism s/p total thyroidectomy evaluation and management History of present illness Initial History: (03/02/24) The patient was previously followed by endocrinology before she recently moved. She was previously followed by Mo Kaur MD at [facility] Endocrine note on 10/19/2023 was reviewed and history was confirmed by the patient. She initially presented with right thyroid nodule which has been stable for many years, however recent FNA showed AUS with suspicious Afirma. Subsequently the patient underwent total thyroidectomy on 08/04/2023 and wasfound to have incidental papillary microcarcinoma. Postoperative course was complicated by transient hypocalcemia and unilateral vocal cord paralysis. She was initially started on levothyroxine 175 mcg daily which was recently increased to 200 mcg daily based on TSH level of 8.17. Her levothyroxinewas adjusted multiple times by her primary care physician. She confirms adherence to levothyroxine which she takes in the morning around 5 AM and goes back to sleep. She complains of temperature dysregulation mostly heat intolerance. The patient reports chronic GI symptoms including diarrhea and constipation, loss of appetite which has resulted in unintentional 150 pounds weight loss. She gets some relief of her GI symptoms by smoking marijuana. She also has history of chronic hypokalemia requiring IV treatment. Review of Systems Constitutional: Positive for malaise/fatigue. Gastrointestinal: Positive for diarrhea, nausea and vomiting. Musculoskeletal: Positive for back pain, joint pain and myalgias. Neurological: Positive for dizziness. HISTORY REVIEWED (electronic chart updated): PAST MEDICAL HISTORY No date: Abnormal glandular Papanicolaou smear of cervix Comment: Abn. Pap smear (cervix) No date: Arthritis No date: Closed dislocation of knee, unspecified part Comment: left No date: Depression Comment: MDD, [facility] No date: DJD (degenerative joint disease), lumbar 09/20/2020: Essential hypertension No date: Heel spur 03/2014: Hypertriglyceridemia No date: Impaired fasting glucose No date: Methamphetamine abuse (HCC) No date: Obesity, unspecified No date: Obstructive sleep apnea Comment: no longer using C-pap No date: Other specified disorder of gallbladder No date: Pleurisy without mention of effusion or current tuberculosis Comment: Pleurisy No date: Social phobia Comment: MDD, [facility] Mujica [facility] 10/2013, 06/2014: Suicidal ideation No date: Tetrahydrocannabinol (THC) use disorder, mild, abuse No date: Thyroid cancer (HCC) No date: Thyroid nodule 03/2014: Vitamin D deficiency PAST SURGICAL HISTORY No date: ABDOMINAL SURGERY HX 11/10/2021: COLONOSCOPY No date: COLPOSCOPY CERVIX UPPER/ADJACENT VAGINA Comment: Colposcopy 11/10/2021: EGD W/O BRSH SPEC VARICIES INJ 02/24/2021: ESOPHAGOGASTRODUODENOSCOPY TRANSORAL DIAGNOSTIC 02/18/2017: HYSTEROSCOPY Comment: D&C, hysteroscopy and IUD removal / reinsertion 08/23/2007: LAPS SURG CHOLECYSTECTOMY W/CHOLANGIOGRAPHY No date: OTHER Comment: bilateral plantar fasciectomy 07/2008: PAST SURGICAL HISTORY OF Comment: L lung surgery- 2006: TEETH COMPLETE Comment: ? peridontal disease 03/21/2008: THORACENTESIS 08/2023: THYROIDECTOMY FAMILY HISTORY Problem Relation Age of Onset Asthma Mother with atopy Diabetes Mother edentulous Hypertension Mother Psychiatry Mother Stroke Mother Thyroid Mother other (fibromyalgia) Mother other (sleep apnea) Mother RLS other (peripheral vascular disease) Mother Hypertension Father other (Peripheral vascular Disease) Father Alzheimer's Disease Maternal Grandmother COPD Maternal Grandmother Coronary Artery Disease Maternal Grandmother [place] Diabetes Maternal Grandmother Emphysema Maternal Grandmother Heart Maternal Grandmother other (RA) Maternal Grandmother Breast Cancer Paternal Grandmother Asthma Brother with atopy Social History Tobacco Use Smoking status: Every Day Packs/day: 1.00 Years: 22.00 Additional pack years: 0.00 Total pack years: 22.00 Types: Cigarettes Last attempt to quit: 08/26/2018 Years since quittin.5 Smokeless tobacco: Never Vaping Use Vaping Use: Never used Substance Use Topics Alcohol use: No Drug use: Yes Types: Marijuana Comment: Medical marijuana card, stopped using 01-27-2022, states Current Outpatient Medications Medication Sig Dispense Refill FIBER, CALCIUM POLYCARBOPHIL, ORAL Take by mouth. predniSONE (DELTASONE) 10 mg tablet Take 2 tablets by mouth once daily for 4 days, THEN 1 tablet once daily for 4 days, THEN 0.5 tablets once daily for 8 days. 16 tablet 0 etonogestrel (NEXPLANON) 68 mg impl subdermal implant 68 mg by SUBDERMAL route. lamotrigine (LAMICTAL ORAL) Take 50 mg by mouth once daily. hydroxyzine HCl (ATARAX ORAL) Take 50 mg by mouth every 6 hours. trazodone HCl (TRAZODONE ORAL) Take 50 mg by mouth daily at bedtime. ibuprofen (MOTRIN) 800 mg tablet Take 1 tablet by mouth every 8 hours as needed for pain. 21 tablet0 cyanocobalamin (VITAMIN B-12) 1,000 mcg tab Take 1,000 mcg by mouth once daily. cholecalciferol, vitamin D3, 10 mcg (400 unit) cap Take 400 Units by mouth once daily. pantoprazole DR (PROTONIX) 40 mg tablet In the morning, TAKE 1 TABLET DAILY ON EMPTY STOMACH 30 tablet 5 levothyroxine (SYNTHROID) 200 mcg tablet Take 1 tablet by mouth daily before breakfast. 30 tablet 5 potassium chloride (KLOR-CON) 20 mEq packet Take 20 mEq by mouth two times a day. 60 Packet 0 No current facility-administered medications for this visit. Objective BP 111/72 Pulse 90 Ht 5' 10 (1.78m) Wt 276 lb 9.6 oz (125.5kg) LMP 07/14/2021 BMI 39.69 kg/(m^2). Physical examination Physical Exam Vitals and nursing note reviewed. Constitutional: General: She is not in acute distress. Appearance: cachectic Neck: Comments: Well-healed surgical scar Cardiovascular: Rate and Rhythm: Normal rate and regular rhythm. Heart sounds: Normal heart sounds. Pulmonary: Effort: No respiratory distress. Breath sounds: Normal breath sounds. Musculoskeletal: Right lower leg: No edema. Left lower leg: No edema. Neurological: General: No focal deficit present. Mental Status: She is not lethargic. Gait: Gait is intact. Psychiatric: Mood and Affect: Affect normal. Labs and imaging data: Reviewed Latest Ref Rng 03/02/2024 Protein, Total 6.3 - 8.0 g/dL 7.3 Albumin 3.9 - 4.9 g/dL 4.5 Calcium 8.5 - 10.2 mg/dL 8.8 Bilirubin, Total 0.2 - 1.3 mg/dL 0.4 Alkaline Phosphatase 34 - 123 U/L 50 AST 13 - 35 U/L 14 ALT 7 - 38 U/L 6 (L) Glucose 74 - 99 mg/dL 89 BUN 7 - 21 mg/dL 8 Creatinine 0.58 - 0.96 mg/dL 0.91 Sodium 136 - 144 mmol/L 141 Potassium 3.7 - 5.1 mmol/L 3.6 (L) Chloride 98 - 107 mmol/L 99 CO2 22 - 30 mmol/L 28 Anion Gap 8 - 15 mmol/L 14 eGFR >=60 mL/min/1.73m 82 Legend: (L) Low Thyroid function test TSH 0.7 on 11/17/2023 TSH 1.17 on 12/08/2023 TSH 5.6 on 01/26/2024 TSH 9 on 03/02/2024 Surgical pathology on 08/04/2023 Procedure: Total thyroidectomy Tumor focality: Unifocal Tumor site: Left lobe Tumor size (greatest dimension): 0.2 cm Histologic type: Papillary carcinoma, classic subtype Mitotic Rate Less than 3 mitoses per 2 mm2 Ki-67 Labeling Index (only for medullary or mixed medullary and follicular carcinomas) Not applicable Tumor Necrosis Not identified Angioinvasion: Not identified Lymphatic invasion: Not identified Extrathyroidal extension: Not identified Margin status: All margins negative for carcinoma Regional lymph node status: Not applicable (no regional lymph nodes submitted or found) Number of lymph nodes with tumor: Not applicable Eliz levels involved: Not applicable Size of largest metastatic deposit: Not applicable Extranodal extension: Not applicable Number of lymph nodes examined: 0 Eliz levels examined: Not applicable Distant site(s) involved: Cannot be determined AJCC 8th edition pathologic stage: Modified Classification: Not applicable pT1a, pN not assigned (no nodes submitted or found), pM cannot be determined from the submitted specimen(s) (stage I) A summary of this patient s tumor is provided above (see more details below). A. 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 Parathyroid tissue. B. Thyroid, Left, hemithyroidectomy: Papillary thyroid carcinoma, see synoptic report. C. Exophytic Thyroid Nodule, excision: Thyroid and parathyroid tissue. Previous medical records: Reviewed Assessment & Plan Assessment: Encounter Diagnosis ICD-10-CM 1. Postoperative hypothyroidism E89.0 levothyroxine (SYNTHROID) 200 mcg tablet THYROID STIMULATING HORMONE T4 FREE/FREE THYROXINE T4 FREE/FREE THYROXINE T3 2. Papillary microcarcinoma of thyroid (HCC) C73 THYROGLOBULIN, SERUM WITH REFLEX TO IA OR LC-MS/MS 3. Hypokalemia E87.6 MAGNESIUM potassium chloride (KLOR-CON) 20 mEq packet Plan: Papillary thyroid microcarcinoma s/p total thyroidectomy on 08/04/2023. Initial SAM risk is low, therefore radioactive iodine treatment was not recommended. Obtain thyroglobulin and cervical lymph node mapping ultrasound next visit Hypothyroidism uncontrolled with fluctuating TSH on levothyroxine alternating dose between 200/175.Increase levothyroxine to 200 mcg every day. Monitor thyroid function test to keep the TSH in the low normal range 0.1-0.5 Hypokalemia is likely due to GI loss, advised to go to the ER for IV replacement if symptoms are worsening. Prescribed potassium replacement. Will also check magnesium. Patient was advised to follow-up with gastroenterology and possible nephrology. Counseled about the risk of hypokalemia including arrhythmias I spent a total of 60 minutes on the date of the service which included preparing to see the patient, [id number] patient care, completing clinical documentation, obtaining and/or reviewing separately obtained history, performing a medically appropriate examination, counseling and educating the pat ient/family/caregiver, and ordering medications, tests, or procedures. I discussed the plan of care with the patient in details including different treatment options and side effects of medications prescribed in this visit. Complications of untreated or uncontrolled disease were also discussed. Patient expressed understanding and agreement. Return in about 6 months (around 09/02/2024). Carlos Browne MD [facility] - [address], [address] [place] [address] This note was partially generated using [email or web address] voice recognition system, and there may be some incorrect words, spellings, and punctuation that were not intended as it appear in the note. documented in this encounterMer[facility]24 Instructions* Patient Instructions* Varinder Patel DO - 03/02/2024 9:13 AM EDT Thank you for arriving to your appointment today! Below is a brief summary of our appointment. You were seen for: Establish care Medication changes: No changes today What you can do at home: Go to the lab Next appointment: 3 mo or sooner documented in this encounterMer[facility]08-01-2024 Nurse Note* Mimi Torres LPN - 03/02/2024 8:25 AM EDT Pt in today to establish as an new pt and discuss health plan after dx of Thyroid cancer and surgery in Aug [address] [address]08-01-[facility] Nurse Note* Mimi Torres LPN - 03/02/2024 8:25 AM EDT Pt in today to establish as an new pt and discuss health plan after dx of Thyroid cancer and surgery in Aug 2023 documented in [address] [facility]Mer[facility]08-01-2024 History of Present illness Narrative* Varinder Patel DO - 03/02/2024 8:20 AM EDT Images from the original note were not included. [facility] - [place] [address] [facility] [address] Dept: [phone] Dept Visit Date: March 01, 2024 Name: Damaris Dykes Date of : 1985 MRN/E #: [id number] Chief Complaint: Damaris Dykes is a 38 year old female here for Patient presents with: New Patient Evaluation Cough: X 2 days Subjective Aug - s/p thryoidectomy for papillary thryoid ca. Thyroid medication: 200mcg 3x/wk then 175mcg every other day. Last TSH: 5.67, and this regimen was in response to that. States 6 pills left. Found nodule 4 yrs ago, then developed globus sensation and dysphagia. 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 Lately she is noticing feeling of globus sensation and coughing up phlegm. Hypokalemia: s/p hospitalization for the same issue. Tried to put on replacement since Aug 2023. Prefers powder packets. Following Gastroenterology at [facility]. Trouble eating and swallowing, anorexia. Found that she has bad GERD and rapid gastric dumping syndrome. She has been struggling with solid answers to her situation. She smokes marijuana to maintain a stable weight and appetite. If she stops smoking she will lose weight, appetite, and feel worse with pain. TOWER HAND appointment next week. Has a constant menstrual bleeding. S/p Nexplanon. Has light bleeding x 1-2 weeks and then heavy bleeding around menses. Associated pain. 2yrs ago ended up hospitalized for AUB. Taking Fe supplements daily. Last H/H: 13.3/41.3. 1 mo ago with ankle pain and swelling up to the knee. Saw ortho provider in [facility] and booted with x-ray/MRI and searching for DVT. Has tendosynovitis of right leg. Concern for autoimmune process. AGUSTO: can't sleep with CPAP. Stopped wearing it. Doesn't have machine anymore. Mental Health: Last mo ran out of medication. Seeing provider in [place]. animal care service worker couldn't get her an appointment until May-Jun. Given another Rx but had to restart. Mood: was great on all medications, she is struggling ramping back up. Mind is in overdrive and having a hard time keeping withher own thoughts. Denies thoughts of SI/HI/AVH. She is struggling with dark thoughts, not of self harm but lack of energy and initiative. Next appointment on 03/07/2024 with in [place]. Bilateral hand numbness, intermittent throughout the day. Endorses hx of DJD of c-spine. Review of Systems Constitutional: Negative for activity change, chills and fatigue. HENT: Positive for trouble swallowing and voice change. Respiratory: Positive for cough, choking and shortness of breath. Cardiovascular: Positive for leg swelling. Negative for chest pain and palpitations. Gastrointestinal: Negative for abdominal pain and vomiting. Genitourinary: Negative for difficulty urinating. Musculoskeletal: Negative for arthralgias. Skin: Negative for rash. Social History Tobacco Use Smoking status: Every Day Packs/day: 1.00 Years: 22.00 Additional pack years: 0.00 Total pack years: 22.00 Types: Cigarettes Last attempt to quit: 08/26/2018 Years since quittin.5 Smokeless tobacco: Never Vaping Use Vaping Use: Never used Substance Use Topics Alcohol use: No Drug use: Yes Types: Marijuana Comment: Medical marijuana card, stopped using 01-27-2022, states ALLERGIES Allergen Reactions Adhesive Tape (Karen* blisters Remeron [Mirtazapin* Mental Status Change Current Outpatient Medications Medication Sig predniSONE (DELTASONE) 10 mg tablet Take 2 tablets by mouth once daily for 4 days, THEN 1 tablet once daily for 4 days, THEN 0.5 tablets once daily for 8 days. etonogestrel (NEXPLANON) 68 mg impl subdermal implant 68 mg by SUBDERMAL route. lamotrigine (LAMICTAL ORAL) Take 50 mg by mouth once daily. hydroxyzine HCl (ATARAX ORAL) Take 50 mg by mouth every 6 hours. trazodone HCl (TRAZODONE ORAL) Take 50 mg by mouth daily at bedtime. levothyroxine sodium (SYNTHROID ORAL) Take 175 mcg by mouth every other day in the morning. 200 mcg3x/wk and 175mcg every other day. ibuprofen (MOTRIN) 800 mg tablet Take 1 tablet by mouth every 8 hours as needed for pain. cyanocobalamin (VITAMIN B-12) 1,000 mcg tab Take 1,000 mcg by mouth once daily. cholecalciferol, vitamin D3, 10 mcg (400 unit) cap Take 400 Units by mouth once daily. pantoprazole DR (PROTONIX) 40 mg tablet In the morning, TAKE 1 TABLET DAILY ON EMPTY STOMACH FIBER, CALCIUM POLYCARBOPHIL, ORAL Take by mouth. promethazine (PHENERGAN) 12.5 mg tablet Take 1-2 tablets by mouth every 8 hours as needed for nausea, vomiting (Patient not taking: Reported on 03/02/2024) [id number] 18 mg iron-800 mcg-290 mg cppt Take by mouth. (Patient not taking: Reported on 05/27/2022) POTASSIUM-99 ORAL Take by mouth. (Patient not taking: Reported on 02/23/2022) No current facility-administered medications for this visit. In terms of Health Maintenance, we discussed: BP Controlled (<130/80) due on 08/04/2022 Covid-19 Vaccine() Never done Annual PCP Team Chronic Disease Visit due on 05/27/2023 Cervical Cancer Screening due on 03/22/2024 Please see social determinants section of patients chart for updated social history. Previous office notes, Lab,imaging, and microbiology results reviewed. I have confirmed and edited as necessary the chief complaint, medications, past medical, family andsocial histories. Objective BP 114/76 Pulse 67 Wt 124.7 kg (275 lb) LMP 07/14/2021 SpO2 98% BMI 39.46 kg/m Last 3 Encounter BP Readings: Date: BP: 01/27/2024 114/68 12/26/2023 136/69 05/27/2022 124/80 Body mass index is 39.46 kg/m . Physical Exam Vitals reviewed. Constitutional: General: She is not in acute distress. Appearance: Normal appearance. HENT: Head: Normocephalic. Right Ear: External ear normal. Left Ear: External ear normal. Nose: Nose normal. Mouth/Throat: Mouth: Mucous membranes are moist. Pharynx: Oropharynx is clear. Eyes: Conjunctiva/sclera: Conjunctivae normal. Neck: Comments: Linear, health surgical scar over surprasternal notch. Cardiovascular: Rate and Rhythm: Normal rate and regular rhythm. Pulses: Normal pulses. Heart sounds: No murmur heard. No friction rub. No gallop. Pulmonary: Effort: Pulmonary effort is normal. Breath sounds: No wheezing, rhonchi or rales. Abdominal: Palpations: Abdomen is soft. Tenderness: There is no abdominal tenderness. Musculoskeletal: General: Normal range of motion. Cervical back: Normal range of motion. No rigidity or tenderness. Right lower leg: No edema. Left lower leg: No edema. Skin: General: Skin is warm. Capillary Refill: Capillary refill takes less than 2 seconds. Findings: No bruising or lesion. Comments: Bilat UE and LE healed linear abrasions from prior self-injurious behavior. Neurological: Mental Status: She is alert and oriented to person, place, and time. Motor: No weakness. Coordination: Coordination normal. Gait: Gait normal. Psychiatric: Mood and Affect: Mood normal. Behavior: Behavior normal. Thought Content: Thought content normal. Judgment: Judgment normal. Plan and Recommendations: ASSESSMENT/PLAN: 1. Encounter for medical examination to establish care - ICD9: V70.9, ICD10: Z00.00 (primary diagnosis) - Follow up for annual exam in one year 2. Essential hypertension - ICD9: 401.9, ICD10: I10 - Controlled, not on medication - Recommend regular aerobic exercise 3. Hypertriglyceridemia - ICD9: 272.1, ICD10: E78.1 - Control undetermined, due for labs - Counseled on healthy diet and regular exercise 4. AGUSTO (obstructive sleep apnea) - ICD9: 327.23, ICD10: G47.33 Chronic problem - uncontrolled - pt states she was not able to comply with therapy. 5. Gastroesophageal reflux disease, unspecified whether esophagitis present - ICD9: 530.81, ICD10: K21.9 - Discussed lifestyle modifications including no meals three hours before sleep and head of bed elevation - Continue treatment with pantoprazole QD 6. MG (generalized anxiety disorder) - ICD9: 300.02, ICD10: F41.1 Chronic problem - uncontrolled - following with provider and up-titrating current therapy. 7. Chronic post-traumatic stress disorder (PTSD) - ICD9: 309.81, ICD10: F43.12 As above 8. Bipolar 2 disorder (HCC) - ICD9: 296.89, ICD10: F31.81 As above 9. Borderline personality disorder (HCC) - ICD9: 301.83, ICD10: F60.3 Historical diagnosis 10. Tetrahydrocannabinol (THC) use disorder, mild- ICD9: 305.20, ICD10: F12.10 Current use of THC is helping control pain and stomach symptoms. No cessation planned at this time.Will continue to monitor. 11. Hypokalemia - ICD9: 276.8, ICD10: E87.6 Prior ED evaluation with hypokalemia and long history of the same. Due for repeat assessment and management. - COMPREHENSIVE METABOLIC PANEL 12. Hypothyroidism, acquired - ICD9: 244.9, ICD10: E03.9 - Instructed patient on importance of taking on an empty stomach either first thing in the morning or at bedtime. - check TSH in 3 weeks - continue current dose of Synthroid 200mcg 3x/wk and 175mcg AOD. - THYROID STIMULATING HORMONE 14. Paresthesia of hand, bilateral - ICD9: 782.0, ICD10: R20.2 Acute complaint - chronic bilat hand paresthesia intermittently. No structural lesions found. C-spine x-ray reviewed with minimal dz. Will evaluate with MRI + EMG. - MRI CERVICAL SPINE WO IVCON - EMG (NEURO/NI) FOR [place] 15. Obesity, Class II, BMI 35-39.9 - ICD9: 278.00, ICD10: E66.9 Chronic problem - will continue to optimize with other conditions. Varinder Patel DO Discussed the above with the patient using shared decision-making. The patient is in agreement with the diagnostic and treatment plans. Return in about 3 months (around 06/02/2024), or Please have patient sign records request form.. I spent a total of 45 minutes on the date of the service which included preparing to see the patient, [id number] patient care, completing clinical documentation, obtaining and/or reviewing separately obtained history, performing a medically appropriate examination, counseling and educating the pat ient/family/caregiver, ordering medications, tests, or procedures, communicating with other HCPs (not separately reported), independently interpreting results (not separately reported), communicatingresults to the patient/family/caregiver, and care coordination (not separately reported). Provider: Varinder Patel DO documented in this encounterMercy [facility]08-01-2024 NoteHNO ID: [id number] Author: VARINDER PATEL, DO Service: ? Author Type: Physician Type: Progress Notes Filed: 03/02/2024 12:51 Note Text: [facility] - [place] [address] [place] [address] Dept: [phone] Dept Visit Date: March 01, 2024 Name: Damaris Dykes Date of : 1985 MRN/E #: [id number] Chief Complaint: Damaris Dykes is a 38 year old female here for Patient presents with: New Patient Evaluation Cough: X 2 days Subjective Aug - s/p thryoidectomy for papillary thryoid ca. Thyroid medication: 200mcg 3x/wk then 175mcg every other day. Last TSH: 5.67, and this regimen was in response to that. States 6 pills left. Found nodule 4 yrs ago, then developed globus sensation and dysphagia. 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 Lately she is noticing feeling of globus sensation and coughing up phlegm. Hypokalemia: s/p hospitalization for the same issue. Tried to put on replacement since Aug 2023. Prefers powder packets. Following Gastroenterology at [facility]. Trouble eating and swallowing, anorexia. Found that she has bad GERD and rapid gastric dumping syndrome. She has been struggling with solid answers to her situation. She smokes marijuana to maintain a stable weight and appetite. If she stops smoking she will lose weight, appetite, and feel worse with pain. TOWER HAND appointment next week. Has a constant menstrual bleeding. S/p Nexplanon. Has light bleeding x 1-2 weeks and then heavy bleeding around menses. Associated pain. 2yrs ago ended up hospitalized for AUB. Taking Fe supplements daily. Last H/H: 13.3/41.3. 1 mo ago with ankle pain and swelling up to the knee. Saw ortho provider in [facility] and booted with x-ray/MRI and searching for DVT. Has tendosynovitis of right leg. Concern for autoimmune process. AGUSTO: can't sleep with CPAP. Stopped wearing it. Doesn't have machine anymore. Mental Health: Last mo ran out of medication. Seeing provider in [place]. animal care service worker couldn't get her an appointment until . Given another Rx but had to restart. Mood: was great on all medications, she is struggling ramping back up. Mind is in overdrive and having a hard time keeping with her own thoughts. Denies thoughts of SI/HI/AVH. She is struggling with dark thoughts, not of self harm but lack of energy and initiative. Next appointment on 03/07/2024 with in [place]. Bilateral hand numbness, intermittent throughout the day. Endorses hx of DJD of c-spine. Review of Systems Constitutional: Negative for activity change, chills and fatigue. HENT: Positive for trouble swallowing and voice change. Respiratory: Positive for cough, choking and shortness of breath. Cardiovascular: Positive for leg swelling. Negative for chest pain and palpitations. Gastrointestinal: Negative for abdominal pain and vomiting. Genitourinary: Negative for difficulty urinating. Musculoskeletal: Negative for arthralgias. Skin: Negative for rash. Social History Tobacco Use Smoking status: Every Day Packs/day: 1.00 Years: 22.00 Additional pack years: 0.00 Total pack years: 22.00 Types: Cigarettes Last attempt to quit: 08/26/2018 Years since quittin.5 Smokeless tobacco: Never Vaping Use Vaping Use: Never used Substance Use Topics Alcohol use: No Drug use: Yes Types: Marijuana Comment: Medical marijuana card, stopped using 01-27-2022, states ALLERGIES Allergen Reactions Adhesive Tape (Karen* blisters Remeron [Mirtazapin* Mental Status Change Current Outpatient Medications Medication Sig predniSONE (DELTASONE) 10 mg tablet Take 2 tablets by mouth once daily for 4 days, THEN 1 tablet once daily for 4 days, THEN 0.5 tablets once daily for 8 days. etonogestrel (NEXPLANON) 68 mg impl subdermal implant 68 mg by SUBDERMAL route. lamotrigine (LAMICTAL ORAL) Take 50 mg by mouth once daily. hydroxyzine HCl (ATARAX ORAL) Take 50 mg by mouth every 6 hours. trazodone HCl (TRAZODONE ORAL) Take 50 mg by mouth daily at bedtime. levothyroxine sodium (SYNTHROID ORAL) Take 175 mcg by mouth every other day in the morning. 200 mcg 3x/wk and 175mcg every other day. ibuprofen (MOTRIN) 800 mg tablet Take 1 tablet by mouth every 8 hours as needed for pain. cyanocobalamin (VITAMIN B-12) 1,000 mcg tab Take 1,000 mcg by mouth once daily. cholecalciferol, vitamin D3, 10 mcg (400 unit) cap Take 400 Units by mouth once daily. pantoprazole DR (PROTONIX) 40 mg tablet In the morning, TAKE 1 TABLET DAILY ON EMPTY STOMACH FIBER, CALCIUM POLYCARBOPHIL, ORAL Take by mouth. promethazine (PHENERGAN) 12.5 mg tablet Take 1-2 tablets by mouth every 8 hours as needed for nausea, vomiting (Patient not taking: Reported on 03/02/2024) [id number]--dsl 18 mg iron-800 mcg-290 mg cppt Take by mouth. (Patient not taking: Reported on 05/27/2022) POTASSIUM-99 ORAL Take by mouth. (Patient not taking (more content not included)...[facility]07-23-2024 Instructions* Patient Instructions* Power Parker MD - 02/22/2024 10:05 AM EDT Make an appointment to see me back in 4 weeks. Get blood work done today prior to starting the prednisone. The prednisone taper has been sent to your pharmacy. Please read the instructions as there are different doses to take on different days. Call to schedule physical therapy at [phone]. Please get that started as soon as possible. Transition to wearing just the ankle brace and only use the boot if absolutely necessary. You will need to call and schedule with rheumatology and endocrinology. If you call the [facility] general scheduling number, they will be able to help do this for you. Dr. Sinclair's nurse willgive you a call in a few days in order to ensure that these have been scheduled. documented in this encounter[facility]24 NoteHNO ID: [id number] Author: POWER PARKER MD Service: ? Author Type: Physician Type: Progress Notes Filed: 02/22/2024 10:33 Note Text: CHIEF COMPLAINT: Damaris Dykes is a 38 year old female who presents today for follow up of right ankle pain. HISTORY OF PRESENT ILLNESS: Damaris Dykes is a 38 year old female with the presenting complaint of Follow Up of the Right Ankle (MRI review). She was initially evaluated for her right ankle pain and swelling that now occurred insidiously about 3 months ago about 2 months ago on 01/11/2024. At the last visit, a DVT ultrasound study was obtained and was normal. She was started on a Medrol Dosepak as well as obtaining an MRI of her right ankle. She is also placed in a tall walking boot and advised to transition out of that after 2 weeks. The the Medrol Dosepak improved both the swelling and pain, but returned when she came off of the medication. She is still wearing the boot, which will improve the pain, but still has pain when she is in the boot. Still getting intermittent swelling. Pain on the lateral lower leg and into the dorsum of the foot. No known family history of rheumatologic problems. Also with degenerative disc disease and noting that her arms are getting numb at night and so painful that it wakes her up. Does not happen to both arms at the same time. Has had right carpal tunnel syndrome surgery, which did not improve the numbness. Has also had right plantar fasciitis surgery in her right foot. Does note that she lost about 150 pounds over the last few years because she could not eat. Will have pain with eating (diagnosed with rapid gastric dumping). Following with GI. She has had somewhat fragmented care over the last few years as she was previously living in [place], [place]. She then saw endocrinology in [place], [place]. She now has all of her care managed by her previous primary care provider, but is establishing with a new [facility] primary care provider in about 2 weeks. Damaris reports a current pain level of 3 (Ankle-Right). She describes the pain as Aching, Sore. The pain is Continuous (worse at times), and has lasted for 5 Weeks. Interventions tried include Relaxation (walking boot, Ibuprofen, tylenol). She is currently taking ibuprofen, prednisone. Most recent ankle imaging was completed on 01/28/2024 (MRI ANKLE WO IVCON RIGHT) . Patient Health Questionnaire (PHQ-9) 03/12/2017 11/10/2017 10/30/2021 PHQ-9 PHQ-2 Score 6 6 5 PHQ-9 Score 25 24 21 (0-4) minimal depression, (5-9) mild depression, (10-14) moderate depression, (15-19) moderately severe depression, (20-27) severe depression PROMIS Physical Function Score No data to display Last MRI Ankle - Impression Only MRI ANKLE WO IVCON RIGHT Collected: 01/28/2024 7:40 AM (Final result) Impression: IMPRESSION: 1. NO ACUTE OSSEOUS OR SOFT TISSUE ABNORMALITY. 2. DEGENERATIVE CHANGES IN THE LATERAL MIDFOOT AT THE LATERAL CUNEIFORM CUBOID ARTICULATION. 3. MILD PERONEAL TENDINOSIS AND TENOSYNOVITIS. 4. MILD POSTERIOR TIBIALIS TENOSYNOVITIS. 5. CHRONIC PLANTAR FASCIAL THICKENING. ... PAIN EVALUATION 02/22/2024 0905 Pain Level: 3 Pain Location: Ankle-Right Description: Aching;Sore Duration Amount of Time: 5 Duration Units: Weeks Frequency: Continuous worse at times Intervention/Comfort measure: Relaxation walking boot, Ibuprofen, tylenol REVIEW OF SYSTEMS: Constitutional: patient denies any recent fever or significant change in weight Cardiovascular: patient denies any chest pain at rest Respiratory: patient denies any shortness of breath or cough Gastrointestinal: patient denies any current abdominal discomfort Integumentary: patient denies any recent skin changes Musculoskeletal: as noted in the HPI Neurologic: as noted in the HPI Endocrine: patient denies a current diagnosis of diabetes Hemoglobin A1C (%) Date Value 01/08/2021 5.9 06/28/2019 5.1 Hematologic/Lymphatic: patient denies any easily bleeding, any recent infection and denies any recent observable lymph node enlargement Psychologic: negative for any recent depression or anxiety issues SOCIAL HISTORY: Tobacco Use: 1 packs/day, for 22 years. Last attempt to quit 08/26/2018. Types: Cigarettes FAMILY HISTORY: FAMILY HISTORY Problem Relation Age of Onset Asthma Mother with atopy Diabetes Mother edentulous Hypertension Mother Psychiatry Mother Stroke Mother Thyroid Mother other (fibromyalgia) Mother other (sleep apnea) Mother RLS other (peripheral vascular disease) Mother Hypertension Father other (Peripheral vascular Disease) Father Alzheimer's Disease Maternal Grandmother COPD Maternal Grandmother Coronary Artery Disease Maternal Grandmother [place] Diabetes Maternal Grandmother Emphysema Maternal Grandmother Heart Maternal Grandmother other (RA) Maternal Grandmother Breast Cancer Paternal Grandmother Asthma Brother with atopy (more content not included)...[facility]07-23-2024 History of Present illness Narrative* Power Parker MD - 02/22/2024 9:34 AM EDT Images from the original note were not included. CHIEF COMPLAINT: Damaris Dykes is a 38 year old female who presents today for follow up of rightankle pain. HISTORY OF PRESENT ILLNESS: Damaris Dykes is a 38 year old female with the presenting complaint of Follow Up of the Right Ankle (MRI review). She was initially evaluated for her right ankle pain and swelling that now occurred insidiously about 3 months ago about 2 months ago on 01/11/2024. At thelast visit, a DVT ultrasound study was obtained and was normal. She was started on a Medrol Dosepakas well as obtaining an MRI of her right ankle. She is also placed in a tall walking boot and advised to transition out of that after 2 weeks. The the Medrol Dosepak improved both the swelling and pain, but returned when she came off of the medication. She is still wearing the boot, which will improve the pain, but still has pain when she is in the boot. Still getting intermittent swelling. Pain on the lateral lower leg and into the dorsum of the foot. No known family history of rheumatologic problems. Also with degenerative disc disease and noting that her arms are getting numb at night and so painful that it wakes her up. Does not happen to both arms at the same time. Has had right carpal tunnel syndrome surgery, which did not improve the numbness. Has also had right plantar fasciitis surgery in her right foot. Does note that she lost about 150 pounds over the last few years because she could not eat. Will have pain with eating (diagnosed with rapid gastric dumping). Following with GI. She has had somewhat fragmented care over the last few years as she was previously living in [place], [place]. She then saw endocrinology in [place], [place]. She now has all of her care managed by her previous primary care provider, but is establishing with a new [facility] primary care provider in about 2 weeks. Damaris reports a current pain level of 3 (Ankle-Right). She describes the pain as Aching, Sore. The pain is Continuous (worse at times), and has lasted for 5 Weeks. Interventions tried include Relaxation (walking boot, Ibuprofen, tylenol). She is currently taking ibuprofen, prednisone. Most recent ankle imaging was completed on 01/28/2024 (MRI ANKLE WO IVCON RIGHT) . Patient Health Questionnaire (PHQ-9) 03/12/2017 11/10/2017 10/30/2021 PHQ-9 PHQ-2 Score 6 6 5 PHQ-9 Score 25 24 21 (0-4) minimal depression, (5-9) mild depression, (10-14) moderate depression, (15-19) moderately severe depression, (20-27) severe depression PROMIS Physical Function Score No data to display Last MRI Ankle - Impression Only MRI ANKLE WO IVCON RIGHT Collected: 01/28/2024 7:40 AM (Final result) Impression: IMPRESSION: 1. NO ACUTE OSSEOUS OR SOFT TISSUE ABNORMALITY. 2. DEGENERATIVE CHANGES IN THE LATERAL MIDFOOT AT THE LATERAL CUNEIFORM CUBOID ARTICULATION. 3. MILD PERONEAL TENDINOSIS AND TENOSYNOVITIS. 4. MILD POSTERIOR TIBIALIS TENOSYNOVITIS. 5. CHRONIC PLANTAR FASCIAL THICKENING. ... PAIN EVALUATION 02/22/2024 0905 Pain Level: 3 Pain Location: Ankle-Right Description: Aching;Sore Duration Amount of Time: 5 Duration Units: Weeks Frequency: Continuous worse at times Intervention/Comfort measure: Relaxation walking boot, Ibuprofen, tylenol REVIEW OF SYSTEMS: Constitutional: patient denies any recent fever or significant change in weight Cardiovascular: patient denies any chest pain at rest Respiratory: patient denies any shortness of breath or cough Gastrointestinal: patient denies any current abdominal discomfort Integumentary: patient denies any recent skin changes Musculoskeletal: as noted in the HPI Neurologic: as noted in the HPI Endocrine: patient denies a current diagnosis of diabetes Hemoglobin A1C (%) Date Value 01/08/2021 5.9 06/28/2019 5.1 Hematologic/Lymphatic: patient denies any easily bleeding, any recent infection and denies any recent observable lymph node enlargement Psychologic: negative for any recent depression or anxiety issues SOCIAL HISTORY: Tobacco Use: 1 packs/day, for 22 years. Last attempt to quit 08/26/2018. Types: Cigarettes FAMILY HISTORY: FAMILY HISTORY Problem Relation Age of Onset Asthma Mother with atopy Diabetes Mother edentulous Hypertension Mother Psychiatry Mother Stroke Mother Thyroid Mother other (fibromyalgia) Mother other (sleep apnea) Mother RLS other (peripheral vascular disease) Mother Hypertension Father other (Peripheral vascular Disease) Father Alzheimer's Disease Maternal Grandmother COPD Maternal Grandmother Coronary Artery Disease Maternal Grandmother [place] Diabetes Maternal Grandmother Emphysema Maternal Grandmother Heart Maternal Grandmother other (RA) Maternal Grandmother Breast Cancer Paternal Grandmother Asthma Brother with atopy ALLERGIES: ALLERGIES Allergen Reactions Adhesive Tape (Karen* blisters Remeron [Mirtazapin* Mental Status Change PAST MEDICAL HISTORY: PAST MEDICAL HISTORY Diagnosis Date Abnormal glandular Papanicolaou smear of cervix Abn. Pap smear (cervix) Arthritis Closed dislocation of knee, unspecified part left Depression MDD, [facility] C[facility] DJD (degenerative joint disease), lumbar Essential hypertension 09/20/2020 Heel spur Hypertriglyceridemia 03/2014 Impaired fasting glucose Methamphetamine abuse (HCC) Obesity, unspecified Obstructive sleep apnea no longer using C-pap Other specified disorder of gallbladder Pleurisy without mention of effusion or current tuberculosis Pleurisy Social phobia MDD, [facility] CNP Suicidal ideation 10/2013, 06/2014 Tetrahydrocannabinol (THC) use disorder, mild, abuse Thyroid nodule Vitamin D deficiency 03/2014 PHYSICAL EXAMINATION: Patient's vitals and nursing notes were reviewed. Vitals: Last menstrual period 07/14/2021. There is no height or weight on file to calculate BMI. General Appearance: Well appearing, alert, in no acute distress, well-hydrated, and well nourished Body Habitus: well nourished and no acute distress Skin: Skin color, texture, turgor normal, no suspicious rashes or lesions noted Psychiatric: Mood and affect are appropriate, patient is oriented to time, place and person Cardiovascular: Pedal pulses and radial pulses normal, no signs of upper or lower extremity edema Respiratory: No respiratory distress, no audible wheezing, no labored breathing, symmetric thoracicexcursion Neurologic: Sensation is grossly intact Lymphatic: No lymph node enlargement noted in the examined area Gait: Antalgic gait to the right Right Foot and Ankle Observation: Normal alignment, multiple well-healed scars from cutting noted on her lower legs Inspection: swelling greatly improved and nearly resolved from previous exam. No calf swelling today., ecchymosis not present Palpation: tenderness to palpation over peroneal tendon and mid body of the peroneal muscle, as well as the posterior tibialis tendon just posterior to the medial malleolus Dorsiflexion: Full A/PROM noted with full muscle strength bilaterally, tenderness with resisted dorsiflexion not present Plantar flexion: Full A/PROM noted with full muscle strength bilaterally, tenderness with resisted plantarflexion not present Inversion: Full A/PROM noted with full muscle strength bilaterally, tenderness with resisted inversion mild Eversion: Full A/PROM noted with full muscle strength bilaterally, tenderness with resisted eversion mild Talar Tilt Test: no ligamentous laxity noted bilaterally Anterior Drawer Test: no ligamentous laxity noted bilaterally Calcaneal squeeze:no tenderness Achilles gutter: no swelling noted Achilles tendon: no pain elicited on examination today and negative Reyes Heel cord tightness: negative bilaterally IMAGING: Previous imaging performed on 01/28/2024, and available in the [facility] health record, showed no acute osseous abnormality but did notably have mild peroneal tendinosis and tenosynovitis as well as mild posterior tibialis tenosynovitis as well as chronic plantar fascial thickening. Additionallywith degenerative changes in the lateral midfoot and the lateral cuneiform cuboid articulation. CLINICAL IMPRESSION / ASSESSMENT: (M65.9) Tenosynovitis of right ankle (primary encounter diagnosis) (M79.89) Calf swelling (R20.2, M79.601, M79.602) Paresthesia and pain of both upper extremities (E89.0) Postoperative hypothyroidism (E89.0) S/P complete thyroidectomy Right ankle pain with swelling that started insidiously. MRI was reviewed with the patient in the office today and noted that she has tenosynovitis of both the peroneal tendon as well as the posterior tibialis tendon. This does correspond to her area of pain. No injury or trauma and all started insidiously. She also has an additional history of bilateral upper extremity paresthesias which were not improved by carpal tunnel surgery release on her right. Also has a recent post surgical thyroid resection, which still has not had normalized thyroid levels. No formal history of rheumatologic conditions but has significant GI issues including rapid gastric emptying. Because of the insidious tenosynovitis with obvious swelling, would like to get inflammatory labs today and refer for evaluation by rheumatology. Additionally, she needs to be established in endocrinology in order to help stabilize her blood work. RECOMMENDATION / PLAN: -Transition out of the tall walking boot as soon as possible into the lace up ankle brace that was provided in the office today. -Referral to formal physical therapy to start a soon as possible. -After blood work has been obtained, should start a longer course of prednisone which was prescribed in the orders today. -Referral to both rheumatology as well as endocrinology. -Blood work including WSR, CRP, MELODY with reflex, rheumatoid factor, CCP Follow up: one month Films prior to visit: No additional imaging warranted. Patient verbalizes understanding of the topics we discussed today and agrees with the treatment plan as detailed above. I spent a total of 45 minutes on the date of the service which included preparing to see the patient, [id number] patient care, completing clinical documentation, obtaining and/or reviewing separately obtained history, performing a medically appropriate examination, counseling and educating the pat ient/family/caregiver, ordering medications, tests, or procedures, communicating with other HCPs (not separately reported), independently interpreting results (not separately reported), communicatingresults to the patient/family/caregiver, and care coordination (not separately reported). Power Parker MD [facility] Sports Medicine documented in this [facility]24 Telephone encounter Note * Telephone Encounter - Keisha Chavez RN - 02/04/2024 1:52 PM EDT LVM. Follow up visit scheduled for February 22, 2024 at [facility], for follow up MRI [facility]07-05-2024 Miscellaneous Notes* Telephone Encounter - Keisha Chavez RN - 02/04/2024 1:52 PM EDT LVM. Follow up visit scheduled for February 22, 2024 at [facility], for follow up MRI documented in this encounterMer[facility]06-27-2024 NoteHNO ID: [id number] Author: EMILEE PEGUERO RT(R) Service: ? Author Type: Technologist Type: Progress Notes Filed: 01/27/2024 19:26 Note Text: Radiology Service Progress Note PATIENT NAME: Damaris Dykes DATE OF SERVICE: January 27, 2024 TIME: 7:25 PM PATIENT IDENTITY VERIFICATION COMPLETED USING TWO (2) IDENTIFIERS: Name and Date of confirmed by patient verbally. FALL SCREENING: Has the patient had 2 falls in the last year or 1 fall with injury or currently using an Ambulatory Assistive Device (Walker, Cane, Wheelchair, Crutches, etc.)? No PATIENT GENDER DATA: Female. status: : No status: NO. PATIENT RELEVANT IMPLANT DATA REVIEWED: Not Applicable PATIENT PRESENTS WITH AN IMPLANTABLE OR ATTACHED HONEY PROCESSOR: No RADIOLOGY DEPARTMENT: General X-ray: Exam(s) Completed: Chest X-Ray PERIPHERAL IV DATA: Not applicable SIGNED BY: RT Maurilio(Bk) January 27, 2024 7:25 [facility]06-27-2024 History of Present illness Narrative* Emilee Peguero RT(R) - 01/27/2024 7:25 PM EDT Radiology Service Progress Note PATIENT NAME: Damaris Dykes DATE OF SERVICE: January 27, 2024 TIME: 7:25 PM PATIENT IDENTITY VERIFICATION COMPLETED USING TWO (2) IDENTIFIERS: Name and Date of confirmedby patient verbally. FALL SCREENING: Has the patient had 2 falls in the last year or 1 fall with injury or currently using an Ambulatory Assistive Device (Walker, Cane, Wheelchair, Crutches, etc.)? No PATIENT GENDER DATA: Female. status: : No status: NO. PATIENT RELEVANT IMPLANT DATA REVIEWED: Not Applicable PATIENT PRESENTS WITH AN IMPLANTABLE OR ATTACHED HONEY PROCESSOR: No RADIOLOGY DEPARTMENT: General X-ray: Exam(s) Completed: Chest X-Ray PERIPHERAL IV DATA: Not applicable SIGNED BY: RT Maurilio(Bk) January 27, 2024 7:25 PM documented in this encounterMer[facility] St. [facility]06-11-2024 Instructions* Patient Instructions* Power Parker MD - 01/11/2024 3:57 PM EDT Try an Even-Up for the left foot. TAKE the Medrol Dosepak (steroid medication) as prescribed. Do not take any additional NSAID medication (meloxicam/Mobic, ibuprofen/Advil/Motrin, naproxen/Aleve, diclofenac/Voltaren, etc.) with the Medrol Dosepak. You may take acetaminophen/Tylenol. Please call [phone] to schedule your MRI. Once the MRI is scheduled, please call Dr. Parker's office at [phone] to schedule a follow-up appointment to review the results of the MRI. documented in this encounterMercy [facility]. [facility]06-11-2024 NoteHNO ID: [id number] Author: POWER PARKER MD Service: ? Author Type: Physician Type: Progress Notes Filed: 01/11/2024 16:12 Note Text: CHIEF COMPLAINT: Damaris Dykes is a 38 year old female who presents today for new evaluation of right foot and ankle pain. HISTORY OF PRESENT ILLNESS: She presents with acute right foot and ankle pain for the the past 4 weeks. Patient does not recall any specific injury. Symptoms started insidiously with right calf/lower leg swelling. Then developed pain in the lateral ankle and then to the dorsum of the foot. She was seen for this in the Emergency Department about 2 week ago on 12/26/2023. No imaging, but was put in a post-operative shoe, with minimal improvement. Overall, she has consistent pain in the right foot > ankle > leg. Will having increased swelling in the whole lower leg as the day progresses. Will get intermittent numbness and tingling randomly. No discoloration in her foot. Pain is the worse on the anterior and lateral ankle. Treatments so far have included medication (Ibuprofen) and the assistive use of a post-operative shoe. Did have a recent thyroidectomy in August 2023. Most recent thyroid levels had a normal TSH. 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 PAIN EVALUATION 01/11/2024 1309 Pain Level: 7 increase to a 09/10 by the end of the day Pain Location: Foot-Right Ankle Description: Aching;Sharp;Stabbing;Radiating;Numbness;Tingling numbness, tingling at the foot and ankle Duration Amount of Time: 1 Duration Units: Months Frequency: Continuous Intervention/Comfort measure: Medication;Relaxation post op shoe, ibuprofen REVIEW OF SYSTEMS: Constitutional: patient denies any recent fever or significant change in weight Cardiovascular: patient denies any chest pain at rest Respiratory: patient denies any shortness of breath or cough Gastrointestinal: patient denies any current abdominal discomfort Integumentary: patient denies any recent skin changes Musculoskeletal: as noted in the HPI Neurologic: as noted in the HPI Endocrine: patient denies a current diagnosis of diabetes Hemoglobin A1C (%) Date Value 01/08/2021 5.9 06/28/2019 5.1 Hematologic/Lymphatic: patient denies any easily bleeding, any recent infection and denies any recent observable lymph node enlargement Psychologic: negative for any recent depression or anxiety issues SOCIAL HISTORY: Tobacco Use: 1 packs/day, for 22 years. Last attempt to quit 08/26/2018. Types: Cigarettes FAMILY HISTORY: FAMILY HISTORY Problem Relation Age of Onset Asthma Mother with atopy Diabetes Mother edentulous Hypertension Mother Psychiatry Mother Stroke Mother Thyroid Mother other (fibromyalgia) Mother other (sleep apnea) Mother RLS other (peripheral vascular disease) Mother Hypertension Father other (Peripheral vascular Disease) Father Alzheimer's Disease Maternal Grandmother COPD Maternal Grandmother Coronary Artery Disease Maternal Grandmother [place] Diabetes Maternal Grandmother Emphysema Maternal Grandmother Heart Maternal Grandmother other (RA) Maternal Grandmother Breast Cancer Paternal Grandmother Asthma Brother with atopy ALLERGIES: ALLERGIES Allergen Reactions Adhesive Tape (Karen* blisters Remeron [Mirtazapin* Mental Status Change PAST MEDICAL HISTORY: PAST MEDICAL HISTORY Diagnosis Date Abnormal glandular Papanicolaou smear of cervix Abn. Pap smear (cervix) Arthritis Closed dislocation of knee, unspecified part left Depression MDD, [facility] [employer] DJD (degenerative joint disease), lumbar Essential hypertension 09/20/2020 Heel spur Hypertriglyceridemia 03/2014 Impaired fasting glucose Methamphetamine abuse (HCC) Obesity, unspecified Obstructive sleep apnea no longer using C-pap Other specified disorder of gallbladder Pleurisy without mention of effusion or current tuberculosis Pleurisy Social phobia [facility], [facility] Suicidal ideation 10/2013, 06/2014 Tetrahydrocannabinol (THC) use disorder, mild, abuse Thyroid nodule Vitamin D deficiency 03/2014 PHYSICAL EXAMINATION: Patient's vitals and nursing notes were reviewed. Vitals: Height 177.8 cm (5' 10), weight 113.4 kg (250 lb), last menstrual period 07/14/2021. Body mass index is 35.87 kg/m?. General Appearance: Well appearing, alert, in no acute distress, well-hydrated, and well nourished Body Habitus: well nourished and no acute distress Skin: Skin color, texture, turgor normal, no suspicious rashes or lesions noted Psychiatric: Mood and affect are appropriate, patient is oriented to time, place and person Cardiovascular: Pedal pulses and radial pulses normal, no signs of upper or lower extremity edema Respiratory: No respiratory distress, no audible wheezing, no labored breathing, symmetric thoracic excursion Neurologic: Sensation is grossly intact Lymphatic: (more content not included)...[facility]06-11-2024 History of Present illness Narrative* Power Parker MD - 01/11/2024 1:22 PM EDT Images from the original note were not included. CHIEF COMPLAINT: Damaris Dykes is a 38 year old female who presents today for new evaluation of right foot and ankle pain. HISTORY OF PRESENT ILLNESS: She presents with acute right foot and ankle pain for the the past 4 weeks. Patient does not recall any specific injury. Symptoms started insidiously with right calf/lowerleg swelling. Then developed pain in the lateral ankle and then to the dorsum of the foot. She was seen for this in the Emergency Department about 2 week ago on 12/26/2023. No imaging, but was put in a post-operative shoe, with minimal improvement. Overall, she has consistent pain in the right foot > ankle > leg. Will having increased swelling in the whole lower leg as the day progresses. Will get intermittent numbness and tingling randomly. No discoloration in her foot. Pain is the worse on the anterior and lateral ankle. Treatments sofar have included medication (Ibuprofen) and the assistive use of a post-operative shoe. Did have a recent thyroidectomy in August 2023. Most recent thyroid levels had a normal TSH. 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 PAIN EVALUATION 01/11/2024 1309 Pain Level: 7 increase to a 09/10 by the end of the day Pain Location: Foot-Right Ankle Description: Aching;Sharp;Stabbing;Radiating;Numbness;Tingling numbness, tingling at the foot and ankle Duration Amount of Time: 1 Duration Units: Months Frequency: Continuous Intervention/Comfort measure: Medication;Relaxation post op shoe, ibuprofen REVIEW OF SYSTEMS: Constitutional: patient denies any recent fever or significant change in weight Cardiovascular: patient denies any chest pain at rest Respiratory: patient denies any shortness of breath or cough Gastrointestinal: patient denies any current abdominal discomfort Integumentary: patient denies any recent skin changes Musculoskeletal: as noted in the HPI Neurologic: as noted in the HPI Endocrine: patient denies a current diagnosis of diabetes Hemoglobin A1C (%) Date Value 01/08/2021 5.9 06/28/2019 5.1 Hematologic/Lymphatic: patient denies any easily bleeding, any recent infection and denies any recent observable lymph node enlargement Psychologic: negative for any recent depression or anxiety issues SOCIAL HISTORY: Tobacco Use: 1 packs/day, for 22 years. Last attempt to quit 08/26/2018. Types: Cigarettes FAMILY HISTORY: FAMILY HISTORY Problem Relation Age of Onset Asthma Mother with atopy Diabetes Mother edentulous Hypertension Mother Psychiatry Mother Stroke Mother Thyroid Mother other (fibromyalgia) Mother other (sleep apnea) Mother RLS other (peripheral vascular disease) Mother Hypertension Father other (Peripheral vascular Disease) Father Alzheimer's Disease Maternal Grandmother COPD Maternal Grandmother Coronary Artery Disease Maternal Grandmother [place] Diabetes Maternal Grandmother Emphysema Maternal Grandmother Heart Maternal Grandmother other (RA) Maternal Grandmother Breast Cancer Paternal Grandmother Asthma Brother with atopy ALLERGIES: ALLERGIES Allergen Reactions Adhesive Tape (Karen* blisters Remeron [Mirtazapin* Mental Status Change PAST MEDICAL HISTORY: PAST MEDICAL HISTORY Diagnosis Date Abnormal glandular Papanicolaou smear of cervix Abn. Pap smear (cervix) Arthritis Closed dislocation of knee, unspecified part left Depression MDD, Counseling center Juliam[facility] Mujica CNP DJD (degenerative joint disease), lumbar Essential hypertension 09/20/2020 Heel spur Hypertriglyceridemia 03/2014 Impaired fasting glucose Methamphetamine abuse (HCC) Obesity, unspecified Obstructive sleep apnea no longer using C-pap Other specified disorder of gallbladder Pleurisy without mention of effusion or current tuberculosis Pleurisy Social phobia MDD, Counseling center Julia Sil BEATRICE Suicidal ideation 10/2013, 06/2014 Tetrahydrocannabinol (THC) use disorder, mild, abuse Thyroid nodule Vitamin D deficiency 03/2014 PHYSICAL EXAMINATION: Patient's vitals and nursing notes were reviewed. Vitals: Height 177.8 cm (5' 10), weight 113.4 kg (250 lb), last menstrual period 07/14/2021. Body mass index is 35.87 kg/m . General Appearance: Well appearing, alert, in no acute distress, well-hydrated, and well nourished Body Habitus: well nourished and no acute distress Skin: Skin color, texture, turgor normal, no suspicious rashes or lesions noted Psychiatric: Mood and affect are appropriate, patient is oriented to time, place and person Cardiovascular: Pedal pulses and radial pulses normal, no signs of upper or lower extremity edema Respiratory: No respiratory distress, no audible wheezing, no labored breathing, symmetric thoracicexcursion Neurologic: Sensation is grossly intact Lymphatic: No lymph node enlargement noted in the examined area Gait: antalgic gait, using a wheelchair Right Foot and Ankle Observation: Normal alignment Inspection: Swelling noted on her posterior calf and her right calf is 3 cm larger than the left. No significant swelling at the ankle or foot. No ecchymosis. Palpation: tenderness to palpation over anterior lateral ankle into the dorsum of the foot. Tenderness with minimal palpation, but no hyperalgesia. Dorsiflexion: Limited ROM secondary to pain, tenderness with resisted dorsiflexion moderate Plantar flexion: Limited ROM secondary to pain, tenderness with resisted plantarflexion moderate Inversion: Limited ROM secondary to pain, tenderness with resisted inversion moderate Eversion: Limited ROM secondary to pain, tenderness with resisted eversion moderate Talar Tilt Test: no ligamentous laxity noted bilaterally Anterior Drawer Test: no ligamentous laxity noted bilaterally Calcaneal squeeze:no tenderness Achilles gutter: no swelling noted Achilles tendon: no pain elicited on examination today and negative Reyes Metatarsal palpation: Moderate pain when examined at the third and fourth metatarsals IMAGING: Final results and radiologist's interpretation, available in the [facility] health record. Images were reviewed with the patient/family members in the office today. My personal interpretation of the performed imaging is no acute abnormality of the right foot, but does notably have significant enthesophytes at the calcaneus at the insertion of the medial plantar fascia. DVT ultrasound study done in the office today was negative. CLINICAL IMPRESSION / ASSESSMENT: (M25.571) Acute right ankle pain (primary encounter diagnosis) (M79.671) Pain in right foot (M79.89) Calf swelling Significant right foot and ankle pain as well as calf swelling with no significant injury or trauma. She is very debilitated by this and has difficulty with ambulation. DVT ultrasound study done in the office today was grossly negative for acute clot. Differential includes acute tendinitis versus ne uropathic pain versus occult fracture. Regardless, we will treat conservatively as noted below. RECOMMENDATION / PLAN: -DVT ultrasound study done stat today in the office -Recommend a MRI of her right ankle to further delineate pathology and to dictate our treatment plan of care. Patient has been instructed to schedule an office appointment after the advanced imaging is completed. At that visit, results of the advanced imaging will then be discussed with full explanation and treatment options. Advanced imaging ordered to rule-out occult fracture versus tendinopathy. -Transition from walking 2 to tall walking boot to help with ambulation -Ibuprofen was minimally helpful and will escalate to a Medrol Dosepak. -Will likely need physical therapy, but would like to hold off prior to the MRI. Follow up: three weeks Films prior to visit: MRI Patient verbalizes understanding of the topics we discussed today and agrees with the treatment plan as detailed above. Orthopaedic Medical Decision Making (MDM) Complexity of problems: Undiagnosed joint, tendon, ligament or muscle condition, Complexity of data: Independent interpretation of imaging, 1 unique sources reviewed for external notes, 1 unique test results reviewed, 2 unique tests ordered, Risk: Prescription drug management, Level of MDM: Moderate (4) Power Parker MD [facility] Medicine documented [facility] History of Present illness Narrative* Michael Estrada RT(R) - 01/11/2024 12:15 PM EDT Radiology Service Progress Note PATIENT NAME: Damaris Dykes DATE OF SERVICE: January 11, 2024 TIME: 12:43 PM PATIENT IDENTITY VERIFICATION COMPLETED USING TWO (2) IDENTIFIERS: Name and Date of confirmedby patient verbally and Name and Date of confirmed by identification band. FALL SCREENING: Has the patient had 2 falls in the last year or 1 fall with injury or currently using an Ambulatory Assistive Device (Walker, Cane, Wheelchair, Crutches, etc.)? Yes, Patient High Riskfor Falls What interventions were put in place to prevent falls during this visit? Increased Observations by Caregivers PATIENT GENDER DATA: Female. status: : No status: N/A PATIENT RELEVANT IMPLANT DATA REVIEWED: Not Applicable PATIENT PRESENTS WITH AN IMPLANTABLE OR ATTACHED HONEY PROCESSOR: No RADIOLOGY DEPARTMENT: General X-ray: Exam(s) Completed: Lower Extremity X- Ray(s): Foot, Right and Wt. Bearing PERIPHERAL IV DATA: Not applicable SIGNED BY: RT Zenobia(Bk) January 11, 2024 12:43 PM documented in this [facility]24 NoteHNO ID: [id number] Author: MICHAEL ESTRADA RT (R) Service: ? Author Type: Technologist Type: Progress Notes Filed: 01/11/2024 12:44 Note Text: Radiology Service Progress Note PATIENT NAME: Damaris Dykes DATE OF SERVICE: January 11, 2024 TIME: 12:43 PM PATIENT IDENTITY VERIFICATION COMPLETED USING TWO (2) IDENTIFIERS: Name and Date of confirmed by patient verbally and Name and Date of confirmed by identification band. FALL SCREENING: Has the patient had 2 falls in the last year or 1 fall with injury or currently using an Ambulatory Assistive Device (Walker, Cane, Wheelchair, Crutches, etc.)? Yes, Patient High Risk for Falls What interventions were put in place to prevent falls during this visit? Increased Observations by Caregivers PATIENT GENDER DATA: Female. status: : No status: N/A PATIENT RELEVANT IMPLANT DATA REVIEWED: Not Applicable PATIENT PRESENTS WITH AN IMPLANTABLE OR ATTACHED HONEY PROCESSOR: No RADIOLOGY DEPARTMENT: General X-ray: Exam(s) Completed: Lower Extremity X-Ray(s): Foot, Right and Wt. Bearing PERIPHERAL IV DATA: Not applicable SIGNED BY: RT Zenobia(R) January 11, 2024 12:43 [facility]05-02-2024 History of Present illness Narrative* She Vizcarra MA - 12/02/2023 1:59 PM EDT .ERRMSG documented in this [id number] History of Present illness Narrative* Trini Toussaint MA - 12/02/2023 1:54 PM EDT .ERRMSG documented in this [id number] Instructions* Patient Instructions* Mo Kaur MD - 10/19/2023 11:29 AM EDT Please increase levothyroxine from 175 to 200 mcg daily. Take levothyroxine (the thyroid replacement medicine) on an empty stomach (only with water) at least 1 hr before other medications/food/drinks, and 4 hours apart from any calcium, magnesium, iron or multivitamin supplements. If you miss a dose one day, take double the dose next day instead of skipping the dose or taking it in the middle of the day with food. Please have labs repeated ~6-8 weeks after increasing the dose. Labs and ultrasound in 04/2024 before next visit; try to do those at least ~1 week before next visit. documented in this [id number] History of Present illness Narrative* Mo Kaur MD - 10/19/2023 10:45 AM EDT Reason for visit/chief complaint: pt has hx thyroid nodules and had FNA last week that came back abnormal with atypia, molecular testing is pending Date: 10/19/2023 Referring Provider: No ref. provider found Primary Care Provider: Eri Mckeon, BEATRICE HPI: Subjective/interval hx: 10/19/2023: She had total thyroidectomy on 08/04/2023. She has bee taking LT4 175 mcg daily; taking appropriately. She may have missed 2 pills in the last 4 weeks. Has fatigue, cold intolerance, constipation No issues with tingling/numbness/muscle cramps/twitches. She has been gaining weight. Sometimes haspalpitations (not as much as before surgery, attribute that to stress). No tremors. Has hair loss (even before surgery, worsened after surgery). No dry skin. No neck lumps, dysphagia/choking. Had voice changes after surgery; improving. No biotin/MVI. 07/08/2023: no change in symptoms compared to last visit. No recent steroids/biotin/E containing meds. Background from the initial consult note from 06/23/2023: Ms. Dykes is a 38 y.o. female with hx of bipolar disorder, PTSD, personality disorder, schizoaffective schizophrenia, sleep apnea, cholecystectomy. She has been having issues with difficulty swallowing solids/liquids since 2018 (present all the time, stable, mainly ?gets stuck in chest then builds up, ?sometimes gets stuck at neck level; patientis not very clear on that). At that time, she had thyroid US showing a big 3.9 cm nodule on R side (reported as heterogenous) and small 4 mm nodule on L side. FNA of the R nodule was done in 09/2018 which came back benign. Repeat US since that time have shown a stable nodule. She recalls that she saw a surgeon for ?possible thyroidectomy, but that didn't happen and she doesn't remember the details. Thyroid US in 04/2023 reported R 3.7 cm TR3 nodule (as below). TSH has been normal. FNA was done on 06/08/2023; results showed AUS, and seems that it was sent for molecular testing per notes but results are not back yet. No choking on food or voice changes, but has been having pain on R side since she had the most recent FNA on 06/08/2023. She feels like choking when she lies on her back. Has nausea/vomiting/diarrhea. Appetite is good but she can't eat well because of dysphagia and she feels full soon. Gets abdominal pain on eating. Has dizziness. Has extreme fatigue, and weakness. She lost ~175 lb since 2019, but weight has been stable since then. Risk factors: -Hx of autoimmune diseases: no -Family hx of thyroid disease/cancer: no -Hx of high risk/interfering medications: no biotin/steroids/ control -Hx of head/neck irradiation: no -Smoking: yes Review of Systems: as per HPI Medical History: 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, normal COLONOSCOPY N/A 05/14/2023 with biopsy; Surgeon: Brandon Norton MD COLPOSCOPY DILATION AND CURETTAGE OF UTERUS ESOPHAGOGASTRODUODENOSCOPY 02/24/[address] [facility], mild chronic inactive gastritis with rare h-pylori LUNG SURGERY Left early s, filled with fluid MULTIPLE TOOTH EXTRACTIONS wears dentures PIERCINGS AND TATTOOS PLANTAR FASCIA SURGERY Bilateral THORACENTESIS THYROIDECTOMY Bilateral 08/04/2023 TOTAL THYROIDECTOMY-papillary carcinoma classic subtype pT1a pN......Dr. Gilles Kim THYROID BIOPSY WITH FNA 06/08/2023 THYROID BIOPSY WITH FNA 06/08/2023 Danny Arevalo DO ULTRASOUND Family History: Family History Problem Relation Age of Onset Arthritis Mother Diabetes Mother edentulous Achalasia Mother Asthma Mother with atopy Hypertension Mother Other (psychiatric disorder) Mother Stroke Mother Thyroid disease Mother Fibromyalgia Mother Sleep apnea Mother Restless legs syndrome Mother Peripheral vascular disease Mother Hypertension Father Peripheral vascular disease Father Achalasia Maternal Grandmother Alzheimer's disease Maternal Grandmother COPD Maternal Grandmother Coronary artery disease Maternal Grandmother Heart attack Maternal Grandmother Diabetes Maternal Grandmother Rheum arthritis Maternal Grandmother Breast cancer Paternal Grandmother Asthma Brother atopy Colon cancer Maternal Great-Grandfather unknown age of onset Rectal cancer Neg Hx Social History: Social History Socioeconomic History Marital status: Single Tobacco Use Smoking status: Every Day Packs/day: 1.00 Years: 20.00 Additional pack years: 0.00 Total pack years: 20.00 Types: Cigarettes Last attempt to quit: 07/26/2023 Years since quittin.2 Smokeless tobacco: Never Vaping Use Vaping Use: Never used Substance and Sexual Activity Alcohol use: Not Currently Drug use: Not Currently Frequency: 1.0 times per week Types: Marijuana Comment: medical Sexual activity: Yes Partners: Male control/protection: None Social Determinants of Health Financial Resource Strain: High Risk (05/03/2023) Overall Financial Resource Strain (CARDIA) Difficulty of Paying Living Expenses: Very hard Food Insecurity: Food Insecurity Present (08/05/2023) Hunger Vital Sign Worried About Running Out of Food in the Last Year: Often true Ran Out of Food in the Last Year: Sometimes true Transportation Needs: No Transportation Needs (08/05/2023) PRAPARE - Transportation Lack of Transportation (Medical): No Lack of Transportation (Non-Medical): No Physical Activity: Inactive (05/03/2023) Exercise Vital Sign Days of Exercise per Week: 0 days Minutes of Exercise per Session: 0 min Stress: Stress Concern Present (05/03/2023) [employer] - Occupational Stress Questionnaire Feeling of Stress : Very much Social Connections: Socially Isolated (05/03/2023) Social Connection and Isolation Panel [NHANES] Frequency of Communication with Friends and Family: Never Frequency of Social Gatherings with Friends and Family: Never Attends Cheondoism Services: Never Active Member of Clubs or Organizations: No Attends Club or Organization Meetings: Never Marital Status: Living with partner Housing Stability: High Risk (08/05/2023) Housing Stability Vital Sign Unable to Pay for Housing in the Last Year: Yes Number of Places Lived in the Last Year: 5 Unstable Housing in the Last Year: No Allergies: Allergies Allergen Reactions Mirtazapine Other (See Comments) Mental status changes Adhesive Tape-Silicones Hives blisters Current Medications: Current Outpatient Medications Medication Sig Dispense Refill acetaminophen (TYLENOL ER) 650 MG CR tablet Take 1 (one) tablet (650 mg total) by mouth every 8 (eight) hours as needed for pain . 30 tablet 1 hydrOXYzine (VISTARIL) 50 MG capsule Take 1 (one) capsule (50 mg total) by mouth 3 (three) times a day as needed for anxiety . 90 capsule 1 ketorolac (TORADOL) 10 mg tablet Take 1 (one) tablet (10 mg total) by mouth 3 (three) times a day as needed for pain . 15 tablet 0 lamoTRIgine (LAMICTAL) 100 MG tablet Take 1 (one) tablet (100 mg total) by mouth daily Start Start:09/14/23. 30 tablet 1 pantoprazole (PROTONIX) 40 MG tablet Take 1 (one) tablet (40 mg total) by mouth 2 (two) times a day. 60 tablet 2 ascorbic acid, vitamin C, (vitamin C) 1000 MG tablet Take 1 (one) tablet (1,000 mg total) by mouth daily . calcium-vitamin D (OS-TONEY +D) 500 mg-5 mcg (200 unit) per tablet Take 1 (one) tablet by mouth 2 (two) times a day with meals . (Patient not taking: Reported on 10/19/2023 .) 60 tablet 11 cyclobenzaprine (FLEXERIL) 10 MG tablet Take 1 (one) tablet (10 mg total) by mouth 3 (three) times a day as needed for muscle spasms . (Patient not taking: Reported on 10/19/2023 .) 90 tablet 0 levothyroxine (SYNTHROID, LEVOTHROID) 200 MCG tablet Take 1 (one) tablet (200 mcg total) by mouth daily on an empty stomach, with water, 1 hr before food / drinks / meds, and 4 hrs apart from calcium, magnesium, iron, multivitamin supplements. Take double dose next day if miss one day . 30 tablet 11 potassium chloride (KLOR-CON) 20 mEq packet Take 20 (twenty) mEq by mouth daily . (Patient not taking: Reported on 09/21/2023 .) 30 packet 0 traZODone (DESYREL) 50 MG tablet Take 0.5 (one-half) tablet (25 mg total) by mouth nightly AND 1 (one) tablet (50 mg total) nightly. 45 tablet 0 No current facility-administered medications for this visit. Physical Exam: Vitals: BP 126/78 Pulse 92 Wt 121.7 kg (268 lb 3.2 oz) LMP 09/18/2023 (Exact Date) BMI 38.48 kg/m , Body mass index is 38.48 kg/m ., Wt Readings from Last 5 Encounters: 10/19/23 121.7 kg (268 lb 3.2 oz) 10/19/23 119.9 kg (264 lb 6.4 oz) 10/13/23 117.9 kg (260 lb) 10/05/23 119.7 kg (264 lb) 09/28/23 120 kg (264 lb 8 oz) General/Constitutional: , well-developed and in no distress. Neck: transverse scar, no thyroid nodules/LNs felt, tenderness Neuro: no tremors, DTR normal, Chvostek's sign -ve Heart: regular rhythm Pulmonary/Chest: effort normal Musculoskeletal: nomal range of motion, normal muscle mass Lab/Imaging Data: Lab Results Component Value Date WBC 8.94 08/17/2023 HGB 12.8 08/17/2023 HCT 39.2 08/17/2023 MCV 83.6 08/17/2023 PLT 415 (H) 08/17/2023 Lab Results Component Value Date GLUCOSE 86 08/17/2023 NA 143 08/17/2023 K 4.4 08/17/2023 CL 103 08/17/2023 BUN 7 (L) 08/17/2023 CREATININE 0.67 08/17/2023 Lab Results Component Value Date ALT 10 08/17/2023 AST 13 08/17/2023 ALKPHOS 59 08/17/2023 BILITOT 0.3 08/17/2023 Lab Results Component Value Date TSH 8.17 (H) 10/18/2023 Lab Results Component Value Date CALCIUM 9.1 08/17/2023 DIANA 4.1 (L) 08/05/2023 Lab Results Component Value Date LDLCALC 159 (H) 10/28/2022 CHOL 233 (H) 10/28/2022 HDL 48 10/28/2022 TRIG 129 10/28/2022 CHOLHDL 4.9 10/28/2022 Latest Reference Range & Units 10/28/22 12:09 03/31/23 12:34 04/02/23 11:11 TSH 0.27 - 4.20 mcIU/mL 1.63 1.46 0.70 Thyroid/parathyroid US 06/09/2018: RESULT: Thyroid gland is somewhat heterogeneous in echotexture. The right lobe measures approximately 6.5 x 2.1 x 2.7 cm. The left lobe measures approximately 4.2 x 1.5 x 1.3 cm. The isthmus measures approximately 2 mm. Within the right lobe is a heterogeneous large solid nodule, measuring approximately 3.9 x 3.2 x 3.1 cm. Within the left lobe is a heterogeneous hypoechoic nodule, measuring approximately 4 x 4 x 2 mm. IMPRESSION: Somewhat heterogeneous thyroid echotexture. Approximately 3.9 cm dominant heterogeneous nodule within the right lobe. Subcentimeter hypoechoic nodule within the left lobe. Continued interval surveillance is recommended. Thyroid/parathyroid US 09/12/2020: COMPARISON: Ultrasound dated June 09, 2018 RESULT: Right Lobe: 2.0 x 2.3 x 6.7 cm; homogeneous echogenicity, expected vascular flow. Left Lobe: 1.5 x 1.6 x 5.4 cm; homogeneous echogenicity, expected vascular flow. Isthmus: 0.4 cm The most suspicious thyroid nodule(s) (up to four) as below: NODULE 1: Location: Right lower pole Size: 3.0 x 2.9 x 3.9 cm, previously 3.2 x 3.1 x 3.9 cm Characteristics: Composition: Spongiform, 0 points Echogenicity: Hypoechoic, 2 points Shape: [id number], 3 points Margin: Extra-thyroidal extension, 3 points Echogenic foci (add points for all that apply): None, 0 points Internal vascularity: absent Interval growth: Stable TI-RADS Category: TR5 ACR Recommendation: TI-RADS 5 nodule. FNA is advised. NODULE 2: Location: Left mid pole Size: 0.2 x 0.2 x 0.4 cm, previously 0.2 x 0.4 x 0.4 Characteristics: Composition: Solid or almost completely solid, 2 points Echogenicity: Hypoechoic, 2 points Shape: Uqcvg-[id number]-[id number], 0 points Margin: Smooth, 0 points Echogenic foci (add points for all that apply): None, 0 points Internal vascularity: absent Interval growth: Stable TI-RADS Category: TR4 ACR Recommendation: TI-RADS 4 nodule. No FNA or follow-up imaging is advised. IMPRESSION: Stable in size 3.9 cm nodule in the right lower pole as detailed in the synoptic report. This is a TR5 nodule and fine needle aspiration is advised if not already performed. Thyroid/parathyroid US 10/07/2021: COMPARISON: Ultrasound thyroid on 09/12/2020. RESULT: Right Lobe: 7.8 x 2.7 x 2.2 cm; homogeneous echogenicity, expected vascular flow. Left Lobe: 4.6 x 1.4 x 1.5 cm; homogeneous echogenicity, expected vascular flow. Isthmus: 0.3 cm The most suspicious thyroid nodule(s) (up to four) as below: NODULE 1: Location: Right inferior Size: 3.7 x 3.0 x 2.6 cm, previously 3.9 x 3.1 x 2.9 cm. Characteristics: Composition: Solid or almost completely solid, 2 points Echogenicity: Isoechoic, 1 point Shape: Ibhia-[id number]-[id number], 0 points Margin: Smooth, 0 points Echogenic foci (add points for all that apply): None, 0 points Internal vascularity: present Interval growth: No significant growth given differences in technique TI-RADS Category: TR3 ACR Recommendation: TI-RADS 3 nodule. FNA is recommended for nodules measuring greater than 2.5cm. IMPRESSION: Thyroid nodule(s) is/are present. Fine needle aspiration is recommended for one or more nodules as detailed in the synoptic report. Thyroid US 04/28/2023: COMPARISON: None TECHNIQUE: Ultrasound examination was performed in transverse and sagittal planes through the thyroid gland. FINDINGS: The right lobe of the thyroid measures 5.8 x 2.5 x 2.7 cm. The left lobe of the thyroid measures 5.2 x 1.4 x 1.3 cm. The isthmus measures 0.3 cm. The thyroid appears homogeneous with normal vascularity. The following lesions are identified and scored: Lesion 1: Right lower pole, measuring 3.7 x 2.6 x 2.5 cm TIRADS 3 Composition: Predominately solid Echogenicity: Mild isoechoic Shape: Wider than tall Margin: Smooth Echogenic foci: None IMPRESSION: Right TI-RADS 3 nodule, 3.7 cm. No prior comparison to assess for stability. Per TI-RADS, FNA is recommended if not already obtained. Pathology 06/08/2023: A. Thyroid, Right, fine needle aspiration (FNA) biopsy: ATYPIA OF UNDETERMINED SIGNIFICANCE ([place] Category III) Note: There is focal cytologic atypia. ThyGeNEXT and ThyraMIR Result Summary: Right Thyroid ThyGeNEXT: [id number] ThyraMIR: Positive Risk of malignancy: 95% 06/25/2023: cortisol 10.1, TSH 0.91, FT4 1 07/14/2023: ACTH stim test; cortisol 10.6 --> 21.2, ACTH 36 Thyroid/neck US 07/20/2023: Thyromegaly with predominantly homogeneous echotexture. Right inferior thyroid lobe nodule measuring up to 3.5 cm with TR3 classification. Previously biopsied on 06/08/2023. Overall stable compared to 04/28/2023. No suspicious cervical lymph nodes. Pathology 08/04/2023: Procedure: Total thyroidectomy Tumor focality: Unifocal Tumor site: Left lobe Tumor size (greatest dimension): 0.2 cm Histologic type: Papillary carcinoma, classic subtype Mitotic Rate Less than 3 mitoses per 2 mm2 Ki-67 Labeling Index (only for medullary or mixed medullary and follicular carcinomas) Not applicable Tumor Necrosis Not identified Angioinvasion: Not identified Lymphatic invasion: Not identified Extrathyroidal extension: Not identified Margin status: All margins negative for carcinoma Regional lymph node status: Not applicable (no regional lymph nodes submitted or found) Number of lymph nodes with tumor: Not applicable Eliz levels involved: Not applicable Size of largest metastatic deposit: Not applicable Extranodal extension: Not applicable Number of lymph nodes examined: 0 Eliz levels examined: Not applicable Distant site(s) involved: Cannot be determined AJCC 8th edition pathologic stage: Modified Classification: Not applicable pT1a, pN not assigned (no nodes submitted or found), pM cannot be determined from the submitted specimen(s) (stage I) A summary of this patient s tumor is provided above (see more details below). A. 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 Parathyroid tissue. B. Thyroid, Left, hemithyroidectomy: Papillary thyroid carcinoma, see synoptic report. C. Exophytic Thyroid Nodule, excision: Thyroid and parathyroid tissue. 10/18/2023: TSH 8.17, FT4 1.4, Tg 0.1, Tg-Ab <0.9 Assessment and plan: Ms. Dykes is a 38 y.o. female with hx of bipolar disorder, PTSD, personality disorder, schizoaffective schizophrenia, sleep apnea, cholecystectomy. MicroPTC: -Patient had 3.7 cm R thyroid nodule which seemed to be stable over years, and FNA was benign in 2019, but most recent FNA showed AUS and molecular testing was positive with 95% risk of malignancy. US in 07/2023 reported no suspicious lymph nodes. She had total thyroidectomy on 08/04/2023; pathology showed 0.2 cm classic PTC on L side with no invasion, and 3.8 cm NIFTP on the R side; T1a, SAM low risk cancer. Pathology also showed parathyroid tissue on both sides; Ca was low at 7.9 (no alb, but iCa was low at 4.1) on 08/05/2023, but normalized when re-checked on 08/17/2023 with Ca 9.1, alb 4.7 andalb corrected Ca of 8.5 mg/dl. She was started on LT4 175 mcg daily after surgery. 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 -Labs on 10/18/2023 showed TSH 8.17, FT4 1.4, Tg good at 0.1 with -ve Abs. Will keep TSH at goal LLN-2, so increased LT4 dose to 200 mcg daily and will repeat TSH in 6-8 weeks. Ordered repeat TSH/Tg/Ab and US in 6 months before next visit. ACTH stim test was normal in 07/2023. Return in about 6 months (around 04/20/2024) for thyroid cancer f/u. Time spent reviewing chart, during the encounter, putting orders and coordinating care on the encounter day is 38 minutes. Mo Karu MD Endocrinology documented in this [id number] History of Present illness Narrative* Evangelista Myles, CNM - 10/12/2023 5:10 PM EDT Subjective Patient ID: Damaris Dkyes is a 38 y.o. female. Damaris is here today for new patient visit. She has been having bleeding after intercourse. She would also like to talk today about control options. She has had an annual TOWER HAND exam recently on 03/22/2023. Her last menstrual period she states is 09/18/2023. She states that for the last 2 years herperiods have been every 28 to 30 days. She states the last 3 days. She states that she has intermittently used IUD and Depo-Provera to control bleeding. She states that she did have an ER visit that she had so much bleeding that she could have blood to . She received Depo-Provera to help control that bleeding. After discussion today she is interested in having a Nexplanon placed and that was completed today. Subdermal Contraceptive Implant Insertion Note Damaris Dykes desires a subdermal etonogestrel contraceptive implant insertion. She has been counseled regarding the risks, benefits and alternatives to the implant. She especially understands that her menstrual periods are expected to become irregular and unpredictable throughout the time sheis using the implant. She has no contraindications to the insertion. Her questions have been answered. She has fully reviewed the FDA-approved consent brochure, has signed the consent form, and wishes to proceed with the insertion today. Current method of contraception: no method Patient's last menstrual period was 09/18/2023 (exact date). Urine test: negative Procedure Time Out Documentation Procedure Details The inner side of the left arm was cleaned with Betadinex3 and infiltrated with 1% lidocaine with epinephrine. The contraceptive sharon was inserted according to the band saw operator cake cutting's instructions without complications. The sharon was palpable under the skin after the insertion. The insertion site was closed with Steri- strip and a pressure dressing was applied. Lot: see MAR Exp: see HERNANDEZ Damaris was given post-insertion instructions. She understands that the implant must be removed at the end of three years and may be removed sooner if she wishes. Successful insertion of nexplanon device. The following portions of the patient's history were reviewed and updated as appropriate: allergies, current medications, past family history, past medical history, past social history, past surgicalhistory, and problem list. Review of Systems All other systems reviewed and are negative. Objective Physical Exam Vitals and nursing note reviewed. Constitutional: Appearance: She is obese. HENT: Head: Normocephalic. Neurological: General: No focal deficit present. Mental Status: She is alert. Psychiatric: Attention and Perception: Attention normal. Mood and Affect: Mood normal. Speech: Speech normal. Behavior: Behavior normal. Thought Content: Thought content normal. Cognition and Memory: Cognition normal. Assessment/Plan: Diagnoses and all orders for this visit: Nexplanon insertion - etonogestreL (NEXPLANON) 68 mg subdermal implant 68 mg - POC , urine Encounter for other general counseling or advice on contraception RTO as needed for annual exam/pap Evangelista Myles APRN, CNM documented in this [id number] History of Present illness Narrative* Lindsay Sherman CNP - 10/05/2023 11:38 AM EST Damaris Le Donis 38 y.o. 1985 female Changes since last visit: 2-month follow-up, esophagram showed adequate esophageal motility, spontaneous esophageal reflux which extends the cervical esophagus. Continues to take pantoprazole 40 mg p.o. twice a day, denies any breakthrough heartburn or acid reflux symptoms. S/p total thyroidectomy by Dr. Kim on 08/04, positive papillary carcinoma of thyroid, did not need any chemo or radiation, on levothyroxine. Is havingsome aspiration with thin liquids after procedure, since resolved. Today endorses generalized abdominal pain, exacerbated with the eating, occasional nausea denies any vomiting. Denies diarrhea or constipation, stools are soft, pasty consistency and malodorous gas. No longer taking Bentyl due to causing constipation. Occasionally takes stool softeners if has not moved her bowels, denies any laxative use. 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, normal COLONOSCOPY N/A 05/14/2023 with biopsy; Surgeon: Brandon Norton MD COLPOSCOPY DILATION AND CURETTAGE OF UTERUS ESOPHAGOGASTRODUODENOSCOPY 02/24/[address] [facility], mild chronic inactive gastritis with rare h-pylori LUNG SURGERY Left early s, filled with fluid MULTIPLE TOOTH EXTRACTIONS wears dentures PIERCINGS AND TATTOOS PLANTAR FASCIA SURGERY Bilateral THORACENTESIS THYROIDECTOMY Bilateral 08/04/2023 TOTAL THYROIDECTOMY-papillary carcinoma classic subtype pT1a pN......Dr. Gilles Kim THYROID BIOPSY WITH FNA 06/08/2023 THYROID BIOPSY WITH FNA 06/08/2023 Danny Arevalo DO ULTRASOUND Social History: Social History Socioeconomic History Marital status: Single Tobacco Use Smoking status: Every Day Packs/day: 1.00 Years: 20.00 Additional pack years: 0.00 Total pack years: 20.00 Types: Cigarettes Last attempt to quit: 07/26/2023 Years since quittin.1 Smokeless tobacco: Never Vaping Use Vaping Use: Never used Substance and Sexual Activity Alcohol use: Not Currently Drug use: Not Currently Frequency: 1.0 times per week Types: Marijuana Comment: medical Sexual activity: Yes Partners: Male control/protection: None Social Determinants of Health Financial Resource Strain: High Risk (05/03/2023) Overall Financial Resource Strain (CARDIA) Difficulty of Paying Living Expenses: Very hard Food Insecurity: Food Insecurity Present (08/05/2023) Hunger Vital Sign Worried About Running Out of Food in the Last Year: Often true Ran Out of Food in the Last Year: Sometimes true Transportation Needs: No Transportation Needs (08/05/2023) PRAPARE - Transportation Lack of Transportation (Medical): No Lack of Transportation (Non-Medical): No Physical Activity: Inactive (05/03/2023) Exercise Vital Sign Days of Exercise per Week: 0 days Minutes of Exercise per Session: 0 min Stress: Stress Concern Present (05/03/2023) [employer] - Occupational Stress Questionnaire Feeling of Stress : Very much Social Connections: Socially Isolated (05/03/2023) Social Connection and Isolation Panel [NHANES] Frequency of Communication with Friends and Family: Never Frequency of Social Gatherings with Friends and Family: Never Attends Cheondoism Services: Never Active Member of Clubs or Organizations: No Attends Club or Organization Meetings: Never Marital Status: Living with partner Housing Stability: High Risk (08/05/2023) Housing Stability Vital Sign Unable to Pay for Housing in the Last Year: Yes Number of Places Lived in the Last Year: 5 Unstable Housing in the Last Year: No Current Medications: Current Outpatient Medications Medication Sig Dispense Refill acetaminophen (TYLENOL ER) 650 MG CR tablet Take 1 (one) tablet (650 mg total) by mouth every 8 (eight) hours as needed for pain . 30 tablet 1 hydrOXYzine (VISTARIL) 50 MG capsule Take 1 (one) capsule (50 mg total) by mouth 3 (three) times a day as needed for anxiety . 90 capsule 1 lamoTRIgine (LAMICTAL) 100 MG tablet Take 1 (one) tablet (100 mg total) by mouth daily Start Start:09/14/23. 30 tablet 1 levothyroxine (SYNTHROID, LEVOTHROID) 175 MCG tablet Take 1 (one) tablet (175 mcg total) by mouth every morning on an empty stomach, with water, 1 hr before food / drinks / meds, and 4 hrs apart fromcalcium, magnesium, iron, multivitamin supplements. Take double dose next day if miss one day. . 60tablet 0 pantoprazole (PROTONIX) 40 MG tablet Take 1 (one) tablet (40 mg total) by mouth 2 (two) times a day. 60 tablet 2 traZODone (DESYREL) 50 MG tablet Take 0.5 (one-half) tablet (25 mg total) by mouth nightly AND 1 (one) tablet (50 mg total) nightly. 45 tablet 0 ascorbic acid, vitamin C, (vitamin C) 1000 MG tablet Take 1 (one) tablet (1,000 mg total) by mouth daily . calcium-vitamin D (OS-TONEY +D) 500 mg-5 mcg (200 unit) per tablet Take 1 (one) tablet by mouth 2 (two) times a day with meals . (Patient not taking: Reported on 09/07/2023 .) 60 tablet 11 cyclobenzaprine (FLEXERIL) 10 MG tablet Take 1 (one) tablet (10 mg total) by mouth 3 (three) times a day as needed for muscle spasms . (Patient not taking: Reported on 09/28/2023 .) 90 tablet 0 potassium chloride (KLOR-CON) 20 mEq packet Take 20 (twenty) mEq by mouth daily . (Patient not taking: Reported on 09/21/2023 .) 30 packet 0 No current facility-administered medications for this visit. Review of Systems Constitutional: Negative for fatigue and fever. Respiratory: Negative for choking and shortness of breath. Gastrointestinal: Positive for abdominal distention, abdominal pain (Generalized) and nausea. Negative for blood in stool, constipation and diarrhea. Skin: Negative for color change and pallor. Neurological: Negative for dizziness and weakness. Physical Exam Constitutional: General: She is not in acute distress. HENT: Head: Normocephalic and atraumatic. Right Ear: External ear normal. Left Ear: External ear normal. Nose: Nose normal. Mouth/Throat: Mouth: Mucous membranes are moist. Pharynx: No posterior oropharyngeal erythema. Eyes: General: No scleral icterus. Pupils: Pupils are equal, round, and reactive to light. Cardiovascular: Rate and Rhythm: Normal rate and regular rhythm. Heart sounds: No murmur heard. No gallop. Pulmonary: Effort: Pulmonary effort is normal. No respiratory distress. Breath sounds: Normal breath sounds. No wheezing. Abdominal: General: Bowel sounds are normal. There is no distension. Palpations: Abdomen is soft. There is no mass. Tenderness: There is no abdominal tenderness. Musculoskeletal: General: No deformity. Normal range of motion. Cervical back: Normal range of motion and neck supple. Skin: General: Skin is warm and dry. Coloration: Skin is not jaundiced or pale. Neurological: General: No focal deficit present. Mental Status: She is alert and oriented to person, place, and time. Psychiatric: Mood and Affect: Mood normal. Behavior: Behavior normal. Office Visit on 09/28/2023 Component Date Value Ref Range Status POC Preg Test, Ur 09/28/2023 Negative Negative Final Internal Control 09/28/2023 Pass Final Admission on 09/09/2023, Discharged on 09/09/2023 Component Date Value Ref Range Status Strep A Screen 09/09/2023 Negative Negative Final Radiology: EXAMINATION: XR UPPER GI WITH ESOPHAGRAM HISTORY: ORDERING SYSTEM PROVIDED HISTORY: dysphagia, TECHNOLOGIST PROVIDED HISTORY: Illness/Other Reason for exam: dysphagia Encounter Type: Ongoing Additional signs and symptoms: heartburn takes meds for it Fluoro dose in mGy: 144 ORDERING SYSTEM PROVIDED DIAGNOSIS CODES: R13.10 Dysphagia, unspecified type COMPARISON: None. TECHNIQUE: Fluoro Dose Ka,r mGy: Fluoro dose in Ka,r mGy: 144. Double-contrast barium esophagram and upper GI examination. The patient was administered barium contrast, effervescent crystals and a barium tablet. FINDINGS: Initial double-contrast views of the esophagus showed adequate motility with normal contour and caliber. Mucosal pattern appeared to be grossly normal. The barium tablet passed promptly through the esophagus. Swallowing views of the pharynx and cervical esophagus showed no esophageal webs, diverticula. The stomach was normal in size, shape and position. Mucosal pattern of the stomach appeared grosslynormal. There was free flow of barium through the pylorus into a normal-appearing duodenal bulb andloop. With rolling maneuvers on the table, there was spontaneous gastroesophageal reflux which extended to the cervical esophagus. Single swallow view of barium in the recumbent position showed adequate motility. No discrete hiatal hernia. IMPRESSION: 1. Spontaneous esophageal reflux which extended to the cervical esophagus. 2. Adequate esophageal motility. JAR/trw Assessment & Plan: Upper GI with esophagram with adequate esophageal motility and spontaneous esophageal reflux, taking pantoprazole 40 mg twice daily. Generalized abdominal pain worsened with p.o. intake. + bloating and occasional nausea. Denies dysphagia, odynophagia, vomiting, unintentional weight loss, bloody or black stools. GERD- Continue pantoprazole, can trial taking once a day if evening or nighttime symptoms return resume taking twice a day Continue with previous GERD regimen recommendations Abdominal pain- Likely IBS, cannot tolerate Bentyl caused constipation -Trial low FODMAP diet -Keep food diary to identify possible food triggers or sensitivities -IBgard peppermint oil samples provided -Can trial MiraLAX as needed no bowel movement, smooth move senna tea samples provided Can follow-up as needed Lindsay Sherman CNP Please note: Portions of this chart may have been created with [email or web address] voice recognition software. Occasional wrong-word or sound-like substitutions may have occurred due to inherent limitations of the voice recognition software. Please read the chart carefully and recognize, using context, where the substitutions have occurred. documented in this [id number] Instructions* Patient Instructions* Lindsay Sherman CNP - 10/05/2023 11:35 AM EST Keep food diary to identify possible food triggers and sensitivity * Attachments The following attachments cannot be sent through Care Everywhere. * Diet: Low-FODMAP: General Info (French) documented in this [id number] History of Present illness Narrative* Parviz Dobbins MD - 09/13/2023 2:16 PM EST [facility] [address] [facility] [place] [address] [facility] [id number] Dept: [phone] MD Damaris Jacinto 38 y.o. female Patient presents with a chief complaint of Follow-up (6 week follow up swallow test, throat pain, dry throat) Temp 99.4 F (37.4 C) (Temporal) Ht 5' 10 Wt 118.5 kg (261 lb 3.2 oz) BMI 37.48 kg/m History of Presenting Illness: The patient/caregiver reports a history of complaint with the following features: She reports that she continued with difficulty swallowing. She also has radiating pains along both sides of the neck, but worse on the right. This is worse with swallowing. She has completed her swallows testing and speech therapy gave some instruction on strategies, but did not feel that three wasanything more to be done per her report. She states that this has caused a great deal of anxiety. She reports that she had dysphagia and weight loss prior to her thyroid biopsy, after which these symptoms improved. Review of systems covering 10 systems is reviewed and pertinent positives and negatives are noted as above. 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 Personality disorder in adult (HCC) Pleurisy PTSD (post-traumatic stress disorder) Schizo affective schizophrenia (HCC) Sleep apnea no CPAP Social phobia Suicidal ideation Thyroid cancer (HCC) 06/2023 Rightsided nodule 3.7 cm diameter with a 2 mm papillary CA...PATH: pT1a...HAIRSPRING ASSEMBLER: Mo Quiroz Vitamin D deficiency Current Outpatient Medications: acetaminophen (TYLENOL ER) 650 MG CR tablet, Take 1 (one) tablet (650 mg total) by mouth every 8 (eight) hours as needed for pain ., Disp: 30 tablet, Rfl: 1 ascorbic acid, vitamin C, (vitamin C) 1000 MG tablet, Take 1 (one) tablet (1,000 mg total) by mouthdaily ., Disp: , Rfl: cyclobenzaprine (FLEXERIL) 10 MG tablet, Take 1 (one) tablet (10 mg total) by mouth 3 (three) timesa day as needed for muscle spasms ., Disp: 90 tablet, Rfl: 0 [START ON 09/14/2023] lamoTRIgine (LAMICTAL) 100 MG tablet, Take 1 (one) tablet (100 mg total) by mouth daily Start Start: 09/14/23., Disp: 30 tablet, Rfl: 1 lamoTRIgine (LAMICTAL) 25 MG tablet, Take 1 (one) tablet (25 mg total) by mouth daily for 14 days, THEN 2 (two) tablets (50 mg total) daily for 16 days., Disp: 46 tablet, Rfl: 0 levothyroxine (SYNTHROID, LEVOTHROID) 175 MCG tablet, Take 1 (one) tablet (175 mcg total) by mouth every morning on an empty stomach, with water, 1 hr before food / drinks / meds, and 4 hrs apart from calcium, magnesium, iron, multivitamin supplements. Take double dose next day if miss one day. ., Disp: 60 tablet, Rfl: 0 pantoprazole (PROTONIX) 40 MG tablet, Take 1 (one) tablet (40 mg total) by mouth 2 (two) times a day ., Disp: 60 tablet, Rfl: 2 traZODone (DESYREL) 50 MG tablet, Take 1 (one) tablet (50 mg total) by mouth nightly as needed for sleep ., Disp: 30 tablet, Rfl: 1 traZODone (DESYREL) 50 MG tablet, Take 0.5 (one-half) tablet (25 mg total) by mouth nightly as needed for sleep . May take with one of the 50-mg trazodone tablets nightly for sleep ., Disp: 30 tablet, Rfl: 1 calcium-vitamin D (OS-TONEY +D) 500 mg-5 mcg (200 unit) per tablet, Take 1 (one) tablet by mouth 2 (two) times a day with meals . (Patient not taking: Reported on 09/07/2023 .), Disp: 60 tablet, Rfl: 11 dicyclomine (BENTYL) 20 mg tablet, Take 1 (one) tablet (20 mg total) by mouth 4 (four) times a day as needed . (Patient not taking: Reported on 09/07/2023 .), Disp: 120 tablet, Rfl: 5 ondansetron (ZOFRAN) 8 MG tablet, Take 1 (one) tablet (8 mg total) by mouth every 8 (eight) hours as needed for nausea (nausea or vomiting) . (Patient not taking: Reported on 09/07/2023 .), Disp: 20 tablet, Rfl: 2 potassium chloride (KLOR-CON) 20 mEq packet, Take 20 (twenty) mEq by mouth daily ., Disp: 30 packet, Rfl: 0 Allergies Allergen Reactions Mirtazapine Other (See Comments) Mental status changes Adhesive Tape-Silicones Hives blisters Past Surgical History: Procedure Laterality Date CARPAL TUNNEL RELEASE OPEN Right 04/29/2023 Surgeon: Varinder Mohr MD CHOLECYSTECTOMY COLONOSCOPY 11/10/[address] [facility], normal COLONOSCOPY N/A 05/14/2023 with biopsy; Surgeon: Brandon Norton MD COLPOSCOPY DILATION AND CURETTAGE OF UTERUS ESOPHAGOGASTRODUODENOSCOPY 02/24/[address] [facility], mild chronic inactive gastritis with rare h-pylori LUNG SURGERY Left early , filled with fluid MULTIPLE TOOTH EXTRACTIONS wears dentures PIERCINGS AND TATTOOS PLANTAR FASCIA SURGERY Bilateral THORACENTESIS THYROIDECTOMY Bilateral 08/04/2023 TOTAL THYROIDECTOMY-papillary carcinoma classic subtype pT1a pN......Dr. iGlles Kim US THYROID BIOPSY WITH FNA 06/08/2023 US THYROID BIOPSY WITH FNA 06/08/2023 Danny Arevalo DO ULTRASOUND Social History Socioeconomic History Marital status: Single Tobacco Use Smoking status: Former Packs/day: 1.50 Years: 20.00 Additional pack years: 0.00 Total pack years: 30.00 Types: Cigarettes Quit date: 07/26/2023 Years since quittin.1 Smokeless tobacco: Never Vaping Use Vaping Use: Former Substance and Sexual Activity Alcohol use: Not Currently Drug use: Not Currently Types: Marijuana Comment: medical Sexual activity: Yes Partners: Male control/protection: None Social Determinants of Health Financial Resource Strain: High Risk (05/03/2023) Overall Financial Resource Strain (CARDIA) Difficulty of Paying Living Expenses: Very hard Food Insecurity: Food Insecurity Present (08/05/2023) Hunger Vital Sign Worried About Running Out of Food in the Last Year: Often true Ran Out of Food in the Last Year: Sometimes true Transportation Needs: No Transportation Needs (08/05/2023) PRAPARE - Transportation Lack of Transportation (Medical): No Lack of Transportation (Non-Medical): No Physical Activity: Inactive (05/03/2023) Exercise Vital Sign Days of Exercise per Week: 0 days Minutes of Exercise per Session: 0 min Stress: Stress Concern Present (05/03/2023) [employer] - Occupational Stress Questionnaire Feeling of Stress : Very much Social Connections: Socially Isolated (05/03/2023) Social Connection and Isolation Panel [NHANES] Frequency of Communication with Friends and Family: Never Frequency of Social Gatherings with Friends and Family: Never Attends Cheondoism Services: Never Active Member of Clubs or Organizations: No Attends Club or Organization Meetings: Never Marital Status: Living with partner Housing Stability: High Risk (08/05/2023) Housing Stability Vital Sign Unable to Pay for Housing in the Last Year: Yes Number of Places Lived in the Last Year: 5 Unstable Housing in the Last Year: No Family History Problem Relation Age of Onset Arthritis Mother Diabetes Mother edentulous Achalasia Mother Asthma Mother with atopy Hypertension Mother Other (psychiatric disorder) Mother Stroke Mother Thyroid disease Mother Fibromyalgia Mother Sleep apnea Mother Restless legs syndrome Mother Peripheral vascular disease Mother Hypertension Father Peripheral vascular disease Father Achalasia Maternal Grandmother Alzheimer's disease Maternal Grandmother COPD Maternal Grandmother Coronary artery disease Maternal Grandmother Heart attack Maternal Grandmother Diabetes Maternal Grandmother Rheum arthritis Maternal Grandmother Breast cancer Paternal Grandmother Asthma Brother atopy Colon cancer Maternal Great-Grandfather unknown age of onset Rectal cancer Neg Hx PHYSICAL EXAM: The patient was examined today 09/13/2023 with findings as follows: CONSTITUTIONAL: General Appearance: well-appearing, nontoxic, alert, no acute distress Communication: understanding at normal conversational tones, hoarse breathy voicing, speech intelligible HEAD/FACE: Head: atraumatic, normocephalic, no lesions Facial Inspection: no lesions, healthy skin Facial Strength: motor strength normal, symmetric strength, symmetric movement Sinuses: no sinus tenderness Salivary Glands: no enlargements of parotid glands, no tenderness of parotid glands, no masses of parotid glands, clear salivary flow on palpation from Stensen's ducts, no duct stones of Stensen's duct, no enlargement of submandibular glands, no tenderness of submandibular glands, no masses of subma ndibular glands, clear salivary flow from Angela's ducts, no stones of Rosenhayn's ducts Temporomandibular Joint: no crepitus with motion, no tenderness on palpation, no trismus, motion symmetric EYES: Pupils: PERRLA, extra-ocular movements intact, no nystagmus, sclera white, no redness of eyes, no watering of eyes EARS: Bilateral External Ears: no pits, no tags Right External Ear: normally formed, no lesions, no mastoid tenderness Left External Ear: normally formed, no lesions, no mastoid tenderness Right External Auditory Canal: normal, healthy skin, no obstructing cerumen, no discharge Left External Auditory Canal: normal, healthy skin, no obstructing cerumen, no discharge Right Tympanic Membrane: normal landmarks, translucent, mobile to pneumatic otoscopy, no perforation Left Tympanic Membrane: normal landmarks, translucent, mobile to pneumatic otoscopy, no perforation Hearing: intact to spoken voice NOSE: Nasal Skin: no lesions, no lacerations, no scars Nasal Dorsum: symmetric with no visible or palpable deformities Nasal Tip: normal symmetric nasal tip, normal nasal valves Nasal Mucosa: normal, pink and moist Septum: not markedly deformed, midline, no exposed vessels, no bleeding, no septal granuloma Turbinates: normal size and conformation Nasopharynx: normal ORAL CAVITY/MOUTH: Lips, teeth, gums: normal lips, normal gums, dentition intact, no dental pain on palpation Oral Mucosa: normal, moist, no lesions Palate: normal hard palate, normal soft palate, symmetric palatal elevation Floor of Mouth: normal floor of mouth Tongue: normal tongue, no lesions, no edema, no masses, normal mucosa, mobile Tonsils: normal tonsils, symmetric, no lesions Posterior pharynx: normal NECK: Neck: no masses, trachea midline, normal range of motion, no cysts or pits, no tenderness to palpation Thyroid: normal thyroid, no enlargement, no tenderness, no nodules LYMPH NODES: Cervical: no palpable lymph node enlargement RESPIRATORY: Inspection/Auscultation: good air movement, chest expands symmetrically, course inhalatory breath sounds with vigorous breathing, no wheezing, no stridor SKIN: General Appearance: healed self harm scars on forearms, no lesions, warm and dry, normal turgor, nobruising NEUROLOGICAL SYSTEM: Orientation: oriented to time, oriented to place, oriented to person Cranial Nerves: Cranial Nerves II-XII intact, normal facial movement PSYCHIATRIC: Mood and affect: abnormal mood, tearful, anxious Assessment and Plan: She presents with ongoing dysphagia complaints. Speech evaluation with modified barium swallow and FEES. These showed some aspiration of thin liquids, but no dietary restriction or thickening if thinliquids. Strategies for positioning to reduce aspiration were reviewed. Observation for any recovery of her vocal fold function is advised. She is to undergo further evaluation with endocrinology for her papillary thyroid cancer. Pathology showed a 0.2 cm low risk nodule. She is upset an tearful today as she felt this would be the cause of her health complaints. After review of her initial ultrasound with a 3.7 cm nodule, FNA with undetermined significance, and genetic testing with a 95% risk of malignancy suggested, I have reassured her that surgical treatment was appropriate and that I would have made the same recommendation. I have encouraged her to continue with her PCP for any other health concerns that she has ongoing. She clearly suffers a great deal of anxiety and would likely benefit from treatment of this condition. She is following with psychiatry and I have encourage her to continue. She reports homelessness, loss of job, and family issues are significantly contributing to her anxiety. I have reassured her in regards to her swallowing that the findings are generally good and tired toencourage her to see the bright side of these findings. 1. Oropharyngeal dysphagia 2. 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 Voice fatigue 4. Anxiety and depression Return in about 6 months (around 03/13/2024). The patient and/or caregiver is to notify the office if no improvement or worsening of symptoms is noted prior to the scheduled follow-up for sooner evaluation. The patient and/or caregiver is able to state an understanding of these recommendations and is agreeable to the treatment plan. --Parviz Dobbins MD on 09/13/2023 at 2:58 PM An electronic signature was used to authenticate this note. * She Vizcarra MA - 09/13/2023 1:53 PM EST Review of Systems Constitutional: Positive for fatigue. Fatigue since surgery around same time daily HENT: Positive for sore throat and trouble swallowing. Eyes: Negative. Respiratory: Negative. Cardiovascular: Negative. Gastrointestinal: Positive for constipation. Endocrine: Negative. Genitourinary: Negative. Musculoskeletal: Negative. Skin: Negative. Allergic/Immunologic: Negative. Neurological: Positive for headaches. Hematological: Bruises/bleeds easily. Psychiatric/Behavioral: The patient is nervous/anxious. documented in this [id number] History of Present illness Narrative* Kelin Corbett, AIR AND WATER TESTER - 09/09/2023 1:15 PM EST [facility] Speech Language Pathology Fibroscopic Endoscopic Evaluation of Swallow (FEES) Procedure Note - Final Patient: Damaris Dykes Date of : 1985 [facility] Speech Language Pathology Fibroscopic Endoscopic Evaluation of Swallow (FEES) Procedure Note - Final Patient: Damaris Dykes Date of : 1985 General Information: General Information Ordering Physician: Dr. Dobbins Date of Onset: 08/04/23 (s/p thyroidectomy) Type of Study: Initial FEES (MBS 09/06/2023 revealing mild oral and moderate pharyngeal swallow impairment with penetration and aspiration of thin liquids) Mental Status: Alert, Cooperative, Oriented Oral Status: Permanent teeth Respiratory Status: Room air Feeding: Self Diet Prior to this Study: Regular, Thin liquid (using chin tuck intermittently) Patient Position: Upright in chair Endoscope: Passed transnasally left nare Patient Tolerance: Fair Cough: Strong Vocal Quality: Dysphonic, Reduced Intensity (raspy, breathy) History completed, risks / benefits explained, questions answered, patient identification verified,oral exam performed Girma Storz slimline scope Anatomic and Physiologic Assessment: Anatomic and Physiologic Assessment Secretion Consistency / Amount: Foamy (nasopharyngeal space) Secretion Location / Response: No excess secretions Velar Closure: Complete Base of Tongue Retraction: Present Vocal Fold/Arytenoid Mobility and General Observation: Reduced left (arytenoid hooding and mild general edema, minimal to no left arytenoid movment, left fold appears fixed in paramedian position) Laryngeal Closure: Incomplete Laryngeal Elevation: Could not assess (moderately impaired per MBS report) Pharyngeal Wall Medialization: Present (significant posterior pharyngeal wall cobblestoning) Epiglottic Retroflexion: Inconsistent Textures Used: Textures Textures used: Thin cup, Thin straw, Pureed spoon, Solids Oral Phase: Oral Preparation/Oral Phase Oral Phase: Mild Lingual Control: Spillover to pharynx (vallecular, posterior aspect of epiglottis and lateral channel) Lingual Coordination: Piecemeal degultution Pharyngeal Phase: Pharyngeal Phase Pharyngeal Phase: (mild-moderate) Reduced Tongue Base Retraction: Bilateral, Vallecular Residue (delay in retraction timing inconsistent (appearing dependent on bolus density), noted thickness to tongue base question edema) Reduced Supraglottic Closure: Penetration during Swallow Reduced Pharyngeal Sensation: Delayed pharyngeal swallow, Cued to clear residue Backflow to: Pyriforms (noted with applesauce bolus to right pyriform region) Penetration: Penetration Present Penetration: Yes Penetration Characteristics: Suspected during swallow Consistencies Penetrated: Thin cup, Thin straw Caused by: Impaired lingual control, Pharyngeal swallow delay, Reduced supraglottic closure Response: Spontaneous cough Effective Strategies Used: Limit bolus size, Chin tuck, Cough / clear throat, Repeat swallows, Change bolus administration mode Aspiration: Aspiration Present Aspiration Present?: Yes (suspect, no blue noted in subglottic space/tracheal space post swallow (question ejection or deeper aspirate that was unobservable due to white out during swallow)) First Aspiration Occurence Characteristics: High aspiration risk, Suspected during swallow Consistencies Aspirated: Thin cup, Thin straw Caused By: Impaired lingual control, Pharyngeal swallow delay, Reduced vocal chord closure Response: Spontaneous cough, Immediate cough, Able to clear Effective Strategies Used: limit bolus size, Cough / clear throat, Repeat swallows Ineffective Strategies Used: Bolus hold (was unable to hold bolus on command) Recommendations: Recommendations PO Recommendations: Regular solids, Thin liquid Strategies: Bolus hold, Double swallow liquids, Double swallow food, Vocal quality check, Cough / clear throat, Effortful swallow (trial supraglottic swallow, avoid piecemeal deglutition) Posture: Sit 90 degrees, Up 30 minutes after meal, Chin tuck with liquid Food Presentation: Small bites Liquid Presentation: Small sips Medication Presentation: Crushed in puree Treatment Techniques: Train feeding / swallowing strategies, Bolus manipulation exercises, Tongue base exercises, Vocal fold adduction exercises (vocal fold exercises for airway protection) Further Recommendations: Assess for diet tolerance, Oral care TID Suggested Consults: GI: Evaluate esophageal function, ENT: Evaluate laryngeal function (follow up ENT/GI as indicated) Factors for Returning to Prior Level of Function Body Structure and Function: Other (comment) Explain Impairments: S/p total thyroidectomy 08/04/23 (examination of tissue indicated papillary carcinoma), dysphagia, left vocal fold paralysis (suspicious for ? laryngeal nerve issue upon follow up with Dr. Kim); past hx significant for behavioral health issues, GERD Activities and Participation: Swallowing limitation Explain Limitations: ongoing sensation of globus, intermittent nasal regurgitation, choking primarily with liquids (of varying degree), does endorse that use of chin tuck which was prescribed post MBS study, is helpful to redue sensation Environmental Factors: Home situation, Family/caregiver support Explain Environmental Factors: lives with family Personal Factors: Awareness of own capacity and performance Explain Personal Factors: good awareness of recent medical status and follow up recommendations Skilled Therapy Needs: Are Skilled Therapy Services Needed After Discharge: Yes Functional Limitations: dysphagia Intensity of Skilled Therapy: 2-3 days per week Anticipated Duration of Skilled Therapy: Duration 10 - 30 days Penetration/Aspiration: 8 Point Penetration-Aspiration Scale Honey: Not Tested [place]: Not Tested Thin: 6 - Material enters the airway, passes below the vocal folds, and is ejected into larynx or out of the airway. Puree: 1 - Material does not enter airway. Mech. Soft: Not Tested Regular: 1 - Material does not enter airway. Impression: mild oral dysphagia, mild-moderate pharyngeal deficit, questionable esophageal component (suspect ongoing reflux risk). Difficulty visualizing bolus location during swallow due to white out and limitation from scope fogginess during thin liquid trials. Pt with immediate cough response post swallow with suspected penetration and aspiration events. Premature entry is noted with thin liquids, optimal control with puree and solid food boluses. Pt status is further impacted by incompleteairway clearance given paramedian fixed positioning of true left vocal fold. Use of chin tuck appeared to subjectively improve bolus control and reduced sensation of choking response per pt presentation and report. Pt will benefit from ongoing dysphagia therapy to address strategy training to maximize bolus control and airway clearance. Continued follow up with ENT for vocal fold diagnoses, adduction exercises as appropriate to ENT approval and safety to maximize protection. Diet recommendations- Liquids: thin and meds crushed in puree; solids: regular solids For complete objective data, detailed plan of care, and education refer to: Speech MBS/FEES Navigator, as well as patient Plan of Care and Education documentation. This note stands as the current Discharge Summary upon patient discharge from the hospital or completion of Speech Pathology Plan of Care. documented in this [id number] Hospital Discharge instructions * Discharge Instructions* Yasmin Arteaga APRN-CENTRAL SUPPLY MANAGER - 09/07/2023 7:59 PM EST Please follow up tomorrow with Jennifer as directed and scheduled * Attachments The following attachments cannot be sent through Care Everywhere. * _Depression, Child, [facility] (French) documented in this [facility] Work Phone: [phone] 330-582001-29-2024 History of Present illness Narrative* Parviz Dobbins MD - 08/30/2023 1:52 PM EST [facility] [address] [facility] [address] [facility] [id number] Dept: [phone] MD Damaris Jacintoghlin 38 y.o. female Patient presents with a chief complaint of Dysphagia (Dysphagia, voice fatigue/New Pt) Temp 99.1 F (37.3 C) (Temporal) Ht 5' 10 Wt 116.9 kg (257 lb 12.8 oz) BMI 36.99 kg/m History of Presenting Illness: The patient/caregiver reports a history of complaint with the following features: Onset: started after total thyroidectomy Timing: constant hoarseness, intermittent choking with nasal regurgitation Duration: month Quality: hoarse voice quality Location: throat Severity: pain none Risk factors: previously under suspicion for achalasia, history of GERD Alleviating factors: noting makes it better Aggravating factors: eating and drinking Associated factors: shortness of breath Review of systems covering 10 systems is reviewed and pertinent positives and negatives are noted as above. 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 Personality disorder in adult (HCC) Pleurisy PTSD (post-traumatic stress disorder) Schizo affective schizophrenia (HCC) Sleep apnea no CPAP Social phobia Suicidal ideation Thyroid cancer (HCC) 06/2023 Rightsided nodule 3.7 cm diameter with a 2 mm papillary CA...PATH: pT1a...HAIRSPRING ASSEMBLER: Mo Quiroz Vitamin D deficiency Current Outpatient Medications: acetaminophen (TYLENOL ER) 650 MG CR tablet, Take 1 (one) tablet (650 mg total) by mouth every 8 (eight) hours as needed for pain ., Disp: 30 tablet, Rfl: 1 ascorbic acid, vitamin C, (vitamin C) 1000 MG tablet, Take 1 (one) tablet (1,000 mg total) by mouthdaily ., Disp: , Rfl: cyclobenzaprine (FLEXERIL) 10 MG tablet, Take 1 (one) tablet (10 mg total) by mouth 3 (three) timesa day as needed for muscle spasms ., Disp: 90 tablet, Rfl: 0 lamoTRIgine (LAMICTAL) 25 MG tablet, Take 1 (one) tablet (25 mg total) by mouth daily for 14 days, THEN 2 (two) tablets (50 mg total) daily for 16 days., Disp: 46 tablet, Rfl: 0 levothyroxine (SYNTHROID, LEVOTHROID) 175 MCG tablet, Take 1 (one) tablet (175 mcg total) by mouth every morning on an empty stomach, with water, 1 hr before food / drinks / meds, and 4 hrs apart from calcium, magnesium, iron, multivitamin supplements. Take double dose next day if miss one day. ., Disp: 60 tablet, Rfl: 0 pantoprazole (PROTONIX) 40 MG tablet, Take 1 (one) tablet (40 mg total) by mouth 2 (two) times a day ., Disp: 60 tablet, Rfl: 2 traZODone (DESYREL) 50 MG tablet, Take 1 (one) tablet (50 mg total) by mouth nightly as needed for sleep ., Disp: 30 tablet, Rfl: 1 calcium-vitamin D (OS-TONEY +D) 500 mg-5 mcg (200 unit) per tablet, Take 1 (one) tablet by mouth 2 (two) times a day with meals . (Patient not taking: Reported on 05/31/2023 .), Disp: 60 tablet, Rfl: 11 dicyclomine (BENTYL) 20 mg tablet, Take 1 (one) tablet (20 mg total) by mouth 4 (four) times a day as needed . (Patient not taking: Reported on 06/14/2023 .), Disp: 120 tablet, Rfl: 5 ondansetron (ZOFRAN) 8 MG tablet, Take 1 (one) tablet (8 mg total) by mouth every 8 (eight) hours as needed for nausea (nausea or vomiting) . (Patient not taking: Reported on 06/14/2023 .), Disp: 20 tablet, Rfl: 2 potassium chloride (KLOR-CON) 20 mEq packet, Take 20 (twenty) mEq by mouth daily ., Disp: 30 packet, Rfl: 0 Allergies Allergen Reactions Mirtazapine Other (See Comments) Mental status changes Adhesive Tape-Silicones Hives blisters Past Surgical History: Procedure Laterality Date CARPAL TUNNEL RELEASE OPEN Right 04/29/2023 Surgeon: Varinder Mohr MD CHOLECYSTECTOMY COLONOSCOPY 11/10/[address] [facility], normal COLONOSCOPY N/A 05/14/2023 with biopsy; Surgeon: Brandon Norton MD COLPOSCOPY DILATION AND CURETTAGE OF UTERUS ESOPHAGOGASTRODUODENOSCOPY 02/24/[address] [facility], mild chronic inactive gastritis with rare h-pylori LUNG SURGERY Left early s, filled with fluid MULTIPLE TOOTH EXTRACTIONS wears dentures PIERCINGS AND TATTOOS PLANTAR FASCIA SURGERY Bilateral THORACENTESIS THYROIDECTOMY Bilateral 08/04/2023 TOTAL THYROIDECTOMY-papillary carcinoma classic subtype pT1a pN......Dr. Gilles Kim THYROID BIOPSY WITH FNA 06/08/2023 THYROID BIOPSY WITH FNA 06/08/2023 Danny Arevalo DO ULTRASOUND Social History Socioeconomic History Marital status: Single Tobacco Use Smoking status: Former Packs/day: 1.50 Years: 20.00 Additional pack years: 0.00 Total pack years: 30.00 Types: Cigarettes Quit date: 07/26/2023 Years since quittin.0 Smokeless tobacco: Never Vaping Use Vaping Use: Former Substance and Sexual Activity Alcohol use: Not Currently Drug use: Not Currently Types: Marijuana Comment: medical Sexual activity: Yes Partners: Male control/protection: None Social Determinants of Health Financial Resource Strain: High Risk (05/03/2023) Overall Financial Resource Strain (CARDIA) Difficulty of Paying Living Expenses: Very hard Food Insecurity: Food Insecurity Present (08/05/2023) Hunger Vital Sign Worried About Running Out of Food in the Last Year: Often true Ran Out of Food in the Last Year: Sometimes true Transportation Needs: No Transportation Needs (08/05/2023) PRAPARE - Transportation Lack of Transportation (Medical): No Lack of Transportation (Non-Medical): No Physical Activity: Inactive (05/03/2023) Exercise Vital Sign Days of Exercise per Week: 0 days Minutes of Exercise per Session: 0 min Stress: Stress Concern Present (05/03/2023) [employer]ational Health - Occupational Stress Questionnaire Feeling of Stress : Very much Social Connections: Socially Isolated (05/03/2023) Social Connection and Isolation Panel [NHANES] Frequency of Communication with Friends and Family: Never Frequency of Social Gatherings with Friends and Family: Never Attends Cheondoism Services: Never Active Member of Clubs or Organizations: No Attends Club or Organization Meetings: Never Marital Status: Living with partner Housing Stability: High Risk (08/05/2023) Housing Stability Vital Sign Unable to Pay for Housing in the Last Year: Yes Number of Places Lived in the Last Year: 5 Unstable Housing in the Last Year: No Family History Problem Relation Age of Onset Arthritis Mother Diabetes Mother edentulous Achalasia Mother Asthma Mother with atopy Hypertension Mother Other (psychiatric disorder) Mother Stroke Mother Thyroid disease Mother Fibromyalgia Mother Sleep apnea Mother Restless legs syndrome Mother Peripheral vascular disease Mother Hypertension Father Peripheral vascular disease Father Achalasia Maternal Grandmother Alzheimer's disease Maternal Grandmother COPD Maternal Grandmother Coronary artery disease Maternal Grandmother Heart attack Maternal Grandmother Diabetes Maternal Grandmother Rheum arthritis Maternal Grandmother Breast cancer Paternal Grandmother Asthma Brother atopy Colon cancer Maternal Great-Grandfather unknown age of onset Rectal cancer Neg Hx PHYSICAL EXAM: The patient was examined today 08/30/2023 with findings as follows: CONSTITUTIONAL: General Appearance: well-appearing, nontoxic, alert, no acute distress Communication: understanding at normal conversational tones, hoarse voicing, speech intelligible HEAD/FACE: Head: atraumatic, normocephalic, no lesions Facial Inspection: no lesions, healthy skin Facial Strength: motor strength normal, symmetric strength, symmetric movement Sinuses: no sinus tenderness Salivary Glands: no enlargements of parotid glands, no tenderness of parotid glands, no masses of parotid glands, clear salivary flow on palpation from Stensen's ducts, no duct stones of Stensen's duct, no enlargement of submandibular glands, no tenderness of submandibular glands, no masses of subma ndibular glands, clear salivary flow from Angela's ducts, no stones of Rosenhayn's ducts Temporomandibular Joint: no crepitus with motion, no tenderness on palpation, no trismus, motion symmetric EYES: Pupils: PERRLA, extra-ocular movements intact, no nystagmus, sclera white, no redness of eyes, no watering of eyes EARS: Bilateral External Ears: no pits, no tags Right External Ear: normally formed, no lesions, no mastoid tenderness Left External Ear: normally formed, no lesions, no mastoid tenderness Right External Auditory Canal: normal, healthy skin, no obstructing cerumen, no discharge Left External Auditory Canal: normal, healthy skin, no obstructing cerumen, no discharge Right Tympanic Membrane: normal landmarks, translucent, mobile to pneumatic otoscopy, no perforation Left Tympanic Membrane: normal landmarks, translucent, mobile to pneumatic otoscopy, no perforation Hearing: intact to spoken voice NOSE: Nasal Skin: no lesions, no lacerations, no scars Nasal Dorsum: symmetric with no visible or palpable deformities Nasal Tip: normal symmetric nasal tip, normal nasal valves Nasal Mucosa: normal, pink and moist Septum: not markedly deformed, midline, no exposed vessels, no bleeding, no septal granuloma Turbinates: normal size and conformation Nasopharynx: normal ORAL CAVITY/MOUTH: Lips, teeth, gums: normal lips, normal gums, dentition intact, no dental pain on palpation Oral Mucosa: normal, moist, no lesions Palate: normal hard palate, normal soft palate, symmetric palatal elevation Floor of Mouth: normal floor of mouth Tongue: normal tongue, no lesions, no edema, no masses, normal mucosa, mobile Tonsils: normal tonsils, symmetric, no lesions Posterior pharynx: normal HYPOPHARYNX/LARYNX: Hypopharynx: normal hypopharynx, normal tongue base, normal pyriform sinus, normal vallecula Larynx: unable to visualize due to gag, see endoscopy note, normal epiglottis, normal false vocal cords, normal true vocal cords, impaired left glottic mobility, no arytenoid edema, no post-cricoid edema, no subglottic stenosis NECK: Neck: no masses, trachea midline, normal range of motion, no cysts or pits, no tenderness to palpation Thyroid: absent LYMPH NODES: Cervical: no palpable lymph node enlargement RESPIRATORY: Inspection/Auscultation: good air movement, chest expands symmetrically, normal breath sounds, no wheezing, no stridor CARDIOVASCULAR SYSTEM: Auscultation: regular rate and rhythm, carotid pulse normal, no carotid thrills, no carotid bruits Observation/Palpation of Peripheral Vascular System: no varicosities, no cyanosis, no edema SKIN: General Appearance: no lesions, warm and dry, normal turgor, no bruising NEUROLOGICAL SYSTEM: Orientation: oriented to time, oriented to place, oriented to person Cranial Nerves: Cranial Nerves II-XII intact, normal facial movement PSYCHIATRIC: Mood and affect: normal mood, normal affect FIBEROPTIC NASOPHARYNOGLARYNGOSCOPY NOTE ([id number]) PROCEDURE PERFORMED BY: Parviz Dobbins MD PROCEDURE DATE: 08/30/2023 With the patient and/or caregiver's consent, the patient is positioned in the exam chair. The nasalcavity is then prepared with local anesthetic/decongestant of 4% Lidocaine and 0.05% oxymetazoline. Using a flexible endoscope the nasal cavity beginning on the left side is entered. There is normal moist nasal septal mucosa. The nasal septum is midline. The inferior turbinate is normal. The middleturbinate is normal. The ethmoid and frontal nasal recesses are intact and patent. The sphenoid sinus ostea is intact and patent. The maxillary sinus ostia is intact and patent The endoscope is then withdrawn and the right side is entered. The inferior turbinate is normal. The middle turbinate is normal. The ethmoid and frontal nasal recesses are intact and patent. The sphenoid sinus ostea is intact and patent. The maxillary sinus ostia is intact and patent Examination of nasopharynx shows normal adenoid and intact and patent eustachian tube orifices. Velopharyngeal closure is intact. Examination of the pharynx reveals the lateral and posterior pharyngeal wall mucosa is normal moist. Tonsils are normal. The tongue base is normal. Examination of the hypopharynx, vallecula, and pyriform sinus reveals normal. The epiglottis is normal. Examination of the vocal folds reveals motion im pairment on the left. The arytenoid and post-cricoid mucosa is normal. The visualized portions of the subglottis is normal. This completed the procedure with the patient having tolerated the procedure well. Assessment and Plan: She presents with new hoarseness complaints, with longstanding swallowing issues in the setting of GERD. On endoscopy, she has a medially placed paralyzed left vocal fold. I do no see pooling of secretions or adela aspiration of own secretions. The vocal paralysis is likely secondary to her recent thyroid surgery. Observation for any improvement over time is advised. As this lateralizes, if there is no recovery, medializing procedures may be considered. She has prior dysphagia of uncertain cause, with underlying GERD. Barium esophagram to evaluation her nasal regurgitation and aspiration complaints is advised. She denies any history of underlying neurologic disease, but has been diagnosed with dumping syndrome. The rationale for any prescribed radiographic or endoscopic evaluation, speech therapy evaluation, or other intervention is discussed. The patient and/or caregiver is advised on the risks of dysphagia to include but not limited to potential entry of food into the lungs with impairment of breathing and increased risk of pneumonia, nutritional deficit from inadequate caloric intake, weight loss, fatigue, poor wound healing, and exacerbation of other chronic disease processes. The symptom management of dysphagia specific to the patient's exam findings and complaints such as the avoidance of problem foods, modification of diet, and the practice of taking in small quantities of foods or thickening of liquids, alternating solids and liquids, the use of carbonation and temperature for improved sensory input to reduce aspiration risk is discussed. The patient and/or caregiver is able to state an understanding of these recommendations and is agreeable to the treatment plan. 1. 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 Oropharyngeal dysphagia XR Modifed Barium Swallow Ambulatory Ref to [facility] (PT/OT/ST) 3. Voice fatigue Ambulatory referral to ENT Return in about 6 weeks (around 10/11/2023). The patient and/or caregiver is to notify the office if no improvement or worsening of symptoms is noted prior to the scheduled follow-up for sooner evaluation. The patient and/or caregiver is able to state an understanding of these recommendations and is agreeable to the treatment plan. --Parviz Dobbins MD on 08/30/2023 at 2:25 PM An electronic signature was used to authenticate this note. * She Vizcarra MA - 08/30/2023 1:48 PM EST Review of Systems Constitutional: Negative. HENT: Positive for sore throat, trouble swallowing and voice change. Eyes: Negative. Respiratory: Negative. Cardiovascular: Negative. Negative for chest pain. Gastrointestinal: Negative. Endocrine: Positive for cold intolerance. Genitourinary: Negative. Musculoskeletal: Positive for back pain. Skin: Negative. Allergic/Immunologic: Negative. Neurological: Positive for light-headedness. Negative for dizziness. Hematological: Bruises/bleeds easily. Psychiatric/Behavioral: Positive for sleep disturbance. The patient is nervous/anxious. documented in this [id number] History of Present illness Narrative* She Vizcarra MA - 08/16/2023 9:55 AM EST Pt is scheduled 08/30/23 * Gilles Kim MD - 08/13/2023 10:52 AM EST OFFICE VISIT REASON FOR VISIT F/u after total thyroidectomy for papillary thyroid cancer. Subjective States her voice gets fatigued as the day goes on and that food sometimes does not go down right. Vitals BP 123/82 Pulse 96 Wt 114.8 kg (253 lb) BMI 36.30 kg/m Exam Alert, NAD, cooperative, gait normal Neck: Incision CDI Labs, Imaging, Pathology Path: 2 mm papillary CA Assessment / Plan / Follow-up Doing well. ? Laryngeal nerve issue. Will refer to ENT (Dr. Parviz Dobbins) for vocalcord evaluation. F/u with me in 1 year. She will f/u with Dr. Kaur for management of thyroid hormone. 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, normal COLONOSCOPY N/A 05/14/2023 with biopsy; Surgeon: Brandon Norton MD COLPOSCOPY DILATION AND CURETTAGE OF UTERUS ESOPHAGOGASTRODUODENOSCOPY 02/24/[address] [facility], mild chronic inactive gastritis with rare h-pylori LUNG SURGERY Left early 20's, filled with fluid MULTIPLE TOOTH EXTRACTIONS wears dentures PIERCINGS AND TATTOOS PLANTAR FASCIA SURGERY Bilateral THORACENTESIS THYROIDECTOMY Bilateral 08/04/2023 TOTAL THYROIDECTOMY-papillary carcinoma classic subtype pT1a pN......Dr. Gilles Kim US THYROID BIOPSY WITH FNA 06/08/2023 US THYROID BIOPSY WITH FNA 06/08/2023 Danny Arevalo DO ULTRASOUND documented in this [id number] History of Present illness Narrative* Gilles Kim MD - 08/13/2023 10:52 AM EST OFFICE VISIT REASON FOR VISIT F/u after total thyroidectomy for papillary thyroid cancer. Subjective States her voice gets fatigued as the day goes on and that food sometimes does not go down right. Vitals BP 123/82 Pulse 96 Wt 114.8 kg (253 lb) BMI 36.30 kg/m Exam Alert, NAD, cooperative, gait normal Neck: Incision CDI Labs, Imaging, Pathology Path: 2 mm papillary CA Assessment / Plan / Follow-up Doing well. ? Laryngeal nerve issue. Will refer to ENT (Dr. Parviz Dobbins) for vocalcord evaluation. F/u with me in 1 year. She will f/u with Dr. Kaur for management of thyroid hormone. 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, normal COLONOSCOPY N/A 05/14/2023 with biopsy; Surgeon: Brandon Norton MD COLPOSCOPY DILATION AND CURETTAGE OF UTERUS ESOPHAGOGASTRODUODENOSCOPY 02/24/[address] [facility], mild chronic inactive gastritis with rare h-pylori LUNG SURGERY Left early 20's, filled with fluid MULTIPLE TOOTH EXTRACTIONS wears dentures PIERCINGS AND TATTOOS PLANTAR FASCIA SURGERY Bilateral THORACENTESIS THYROIDECTOMY Bilateral 08/04/2023 TOTAL THYROIDECTOMY-papillary carcinoma classic subtype pT1a pN......Dr. Gilles Kim THYROID BIOPSY WITH FNA 06/08/2023 THYROID BIOPSY WITH FNA 06/08/2023 Danny Arevalo DO ULTRASOUND documented in this [id number] Note* Quick Note - Clara Bloom RN - 08/06/2023 12:44 PM EST Pt seen by [facility].Reviewed AVS with pt including new medications, when to take them and follow up appts. Educated pt on monitoring fors/s of infection at incision site. Pt verbalized understanding. Ivx 2 removed with canulas intact. Guaze and tegaderm applied to sites. Pt tolerated well. Community resources given to pt. Pt has medications from meds to bed. Assisted pt into vehicle via WC for DC. [id number] Miscellaneous Notes* Quick Note - Clara Bloom RN - 08/06/2023 12:44 PM EST Pt seen by [facility].Reviewed AVS with pt including new medications, when to take them and follow up appts. Educated pt on monitoring fors/s of infection at incision site. Pt verbalized understanding. Ivx 2 removed with canulas intact. Guaze and tegaderm applied to sites. Pt tolerated well. Community resources given to pt. Pt has medications from meds to bed. Assisted pt into vehicle via WC for DC. * Plan of Care - Leeanne Sexton RN - 08/06/2023 10:49 AM EST Problem: Actual or potential alteration in health Goal: Absence of healthcare acquired conditions Outcome: Partially Met Goal: Knowledge of Interdisciplinary Plan of Care Outcome: Partially Met Goal: Knowledge of Enviroment Outcome: Partially Met Problem: Pain Goal: Manage acute pain Outcome: Partially Met Goal: Manage chronic pain Outcome: Partially Met Goal: Reduced pain sensation Outcome: Partially Met Goal: Achievement of comfort function goal Outcome: Partially Met Problem: Falls, Risk of Goal: Absence of falls Outcome: Partially Met Problem: Pressure Ulcer - Risk of Goal: Absence of pressure ulcer Outcome: Partially Met * Plan of Care - Bre Figueredo RN - 08/05/2023 6:46 PM EST Problem: Actual or potential alteration in health Goal: Absence of healthcare acquired conditions Outcome: Partially Met Goal: Knowledge of Interdisciplinary Plan of Care Outcome: Partially Met Goal: Knowledge of Enviroment Outcome: Partially Met Problem: Pain Goal: Manage acute pain Outcome: Partially Met Goal: Manage chronic pain Outcome: Partially Met Goal: Reduced pain sensation Outcome: Partially Met Goal: Achievement of comfort function goal Outcome: Partially Met Problem: Falls, Risk of Goal: Absence of falls Outcome: Partially Met * Assessment & Plan Note - Kyra Isabel CNP - 08/05/2023 6:45 AM EST Associated Problem(s): Thyroid nodule S/p thyroidectomy 08/[address] Kim * Plan of Care - Lindsay Lucero RN - 08/04/2023 10:52 PM EST POC initiated Problem: Actual or potential alteration in health Goal: Absence of healthcare acquired conditions Outcome: Not Met Goal: Knowledge of Interdisciplinary Plan of Care Outcome: Not Met Goal: Knowledge of Enviroment Outcome: Not Met Problem: Pain Goal: Manage acute pain Outcome: Not Met Goal: Manage chronic pain Outcome: Not Met Goal: Reduced pain sensation Outcome: Not Met Goal: Achievement of comfort function goal Outcome: Not Met * Plan of Care - Leeanne Tadeo RN - 08/04/2023 8:50 PM EST Problem: Actual or potential alteration in health Goal: Absence of healthcare acquired conditions Outcome: Partially Met Goal: Knowledge of Interdisciplinary Plan of Care Outcome: Partially Met Goal: Knowledge of Enviroment Outcome: Partially Met Problem: Pain Goal: Manage acute pain Outcome: Partially Met Goal: Manage chronic pain Outcome: Partially Met Goal: Reduced pain sensation Outcome: Partially Met Goal: Achievement of comfort function goal Outcome: Partially Met * Op Note - Gilles Kim MD - 08/04/2023 12:50 PM EST OPERATIVE NOTE - 08/04/23 PATIENT: Damaris Dykes : 1985 AGE: 38 y.o. SEX: female RACE: [1] PCP: Olga Dhillon CNP REFERRAL: Gilles Kim MD Time Out Performed Yes Site Marking N/A Informed Consent Yes Referring Surgeon Gilles Kim MD Pre-op Dx Thyroid nodule high suspicion for malignancy. Procedure Total thyroidectomy Laterality N/A Post-op Dx Same Anesthesia Operations Support Specialist Loli ANGULO Positioning Supine sniffing Area prepped and draped Neck and chest Details of Procedure An 8 cm transverse incision was made 2 finger breadths above the sternal notchin a Mary's crease line and extended through the subcutaneous tissues and platysma muscle. Superior and inferior subplatysmal flaps were raised and a Mahorner retractor placed. The strap muscles were divided in the midline and retracted laterally. The tissue planes were sticky and the dissection was tedious suspicious for thyroiditis. We beganthe dissection initially on the right side. The strap muscles were mobilized off the thyroid gland.The thyroid gland was rotated medially and anteriorly. The inferior thyroid pole vessels were divided between clamps and tied with #2-0 Silk. Tiny blood vessels were ligated with clips. The superior pole vessels were divided between clamps and tied with #2-0 Silk with care to avoid injury to the superior laryngeal nerve. The inferior thyroid artery and middle thyroid vein branches immediately adjacent to the thyroid were taken down between clips and where necessary tied with #3-0 Silk. Parathyroid glands were identified and preserved. The recurrent laryngeal nerve was identified and preserved. The Ligament of Carroll was taken down carefully between clamps and tied with #3-0 Silk ties. The thyroid was mobilized off the trachea. Next, we proceeded to perform the dissection on the left side. This was performed in exactly the same manner as the right side. Close to the left inferior lobe was a lesion that possibly was a exophytic thyroid nodule vs a lymph node and this was excised and sent to pathology separately. The thyroid gland was marked for orientation and sent to pathology. Surgicel and Tisseal were used.A TLS drain was inserted. The strap muscles were reapproximated in the midline with #3-0 Vicryl. The Platysma was reapproximated with #3-0 Vicryl. The skin was closed with #4-0 Prolene simple interrupted sutures. Bacitracin, gauze, and Medipore tape were applied. Hemostasis Good EBL 20 ml. Complications None Specimens Right and left thyroid. Left inferior thyroid vs. Lymph node lesion. Wound Class 1 Sponge / Instrument / Needle Counts Correct Disposition Tolerated well. Layout PNSHETH documented in this [id number] Hospital course Narrative* Kyra Isabel CNP - 08/06/2023 12:30 PM EST DISCHARGE SUMMARY Patient: Damaris Dykes Date of : 1985 Site: [facility] Family Provider: Olga Dhillon CNP Admit Date: 08/04/2023 Discharge Date/Time: 08/06/23 12:30 PM Disposition: Home Clinical Summary Hospital Course: Damaris Dykes is a 38 y.o. female patient of Olga Dhillon CNP with a history of anxiety, depression, GERD, DDD, HLD, HTN, PTSD, vitamin D deficiency, and thyroid nodule who presented to [facility] on 08/04 for a scheduled thyroidectomy with Dr. Kim. Her perioperative course was uncomplicated and she is stable for discharge. Discharge Diagnoses: * Thyroid nodule Assessment & Plan S/p thyroidectomy 08/[address] Kim Drain removed without incident Surgical incision CDI Tolerating Regular diet , Pain controlled Pathology pending Continue Synthroid- will discharge with 175 mcg daily Follow up with Dr. Kim in 1 week Surgeries: 08/04/23 TOTAL THYROIDECTOMY Consults: No orders of the defined types were placed in this encounter. Allergies: Mirtazapine and Adhesive tape-silicones Discharge Diet: Resume home diet Condition: Good Discharge Medications: Discharge Medications New Medications Details HYDROcodone-acetaminophen 5-325 mg per tablet Commonly known as: NORCO Take 1 (one) tablet by mouth every 6 (six) hours as needed (Days supply per fill: 3) . Quantity: 12 tablet levothyroxine 175 MCG tablet Commonly known as: SYNTHROID, LEVOTHROID Take 1 (one) tablet (175 mcg total) by mouth every morning on an empty stomach, with water, 1 hr before food / drinks / meds, and 4 hrs apart from calcium, magnesium, iron, multivitamin supplements. Take double dose next day if miss one day. . Quantity: 60 tablet Medications To Continue Details acetaminophen 650 MG CR tablet Commonly known as: TYLENOL ER Take 1 (one) tablet (650 mg total) by mouth every 8 (eight) hours as needed for pain . Quantity: 30 tablet cyclobenzaprine 10 MG tablet Commonly known as: FLEXERIL Take 1 (one) tablet (10 mg total) by mouth 3 (three) times a day as needed for muscle spasms . Quantity: 90 tablet hydrOXYzine 50 MG capsule Commonly known as: VISTARIL Take 1 (one) capsule (50 mg total) by mouth 2 (two) times a day as needed for anxiety . Quantity: 60 capsule pantoprazole 40 MG tablet Commonly known as: PROTONIX Take 1 (one) tablet (40 mg total) by mouth 2 (two) times a day . Quantity: 60 tablet potassium chloride 20 mEq packet Commonly known as: KLOR-CON Take 20 (twenty) mEq by mouth daily . Quantity: 30 packet QUEtiapine 150 mg 24 hr tablet Commonly known as: SEROQUEL XR Take 1 (one) tablet (150 mg total) by mouth nightly . Quantity: 30 tablet vitamin C 1000 MG tablet Generic drug: ascorbic acid (vitamin C) Take 1 (one) tablet (1,000 mg total) by mouth daily . Unreviewed Medications Details calcium-vitamin D 500 mg-5 mcg (200 unit) per tablet Commonly known as: OS-TONEY +D Take 1 (one) tablet by mouth 2 (two) times a day with meals . Quantity: 60 tablet dicyclomine 20 mg tablet Commonly known as: BENTYL Take 1 (one) tablet (20 mg total) by mouth 4 (four) times a day as needed . Quantity: 120 tablet ondansetron 8 MG tablet Commonly known as: ZOFRAN Take 1 (one) tablet (8 mg total) by mouth every 8 (eight) hours as needed for nausea (nausea or vomiting) . Quantity: 20 tablet Physician(s) Family Provider: Olga Dhillon CNP, Address: [address] [place] [address] / [place] [phone] Follow Up: Mo Kaur MD [address] [id number] Schedule an appointment as soon as possible for a visit in 2 week(s) Gilles Kim MD [address] [place] [id number] Schedule an appointment as soon as possible for a visit in 1 week(s) Patient instructions, including activity, were given to the patient/family at discharge. Please seethe After Visit Summary in the electronic medical record for details. Time spent on discharge: < 30 minutes Completed by: Kyra Isabel CNP on 08/06/23, 2:33 PM documented in this [id number] Note* Plan of Care - Leeanne Sexton RN - 08/06/2023 10:49 AM EST Problem: Actual or potential alteration in health Goal: Absence of healthcare acquired conditions Outcome: Partially Met Goal: Knowledge of Interdisciplinary Plan of Care Outcome: Partially Met Goal: Knowledge of Enviroment Outcome: Partially Met Problem: Pain Goal: Manage acute pain Outcome: Partially Met Goal: Manage chronic pain Outcome: Partially Met Goal: Reduced pain sensation Outcome: Partially Met Goal: Achievement of comfort function goal Outcome: Partially Met Problem: Falls, Risk of Goal: Absence of falls Outcome: Partially Met Problem: Pressure Ulcer - Risk of Goal: Absence of pressure ulcer Outcome: Partially Met [id number] History of Present illness Narrative* Kyra IsabelMichael, CENTRAL SUPPLY MANAGER - 08/06/2023 10:33 AM EST [place] [facility] DAILY PROGRESS NOTE DIAGNOSIS / REASON FOR CONSULT: * Thyroid nodule Assessment & Plan S/p thyroidectomy 08/[address] Kim Drain with 30 ml serosanguinous output / 24 hours Surgical incision CDI Tolerating Regular diet Pain control, ambulate Pathology pending Will pull drain, continue Synthroid- will discharge with 175 mcg daily Follow up with Dr. Kim in 1 week Admitted with these risk variables:None. Please see assessment and plan for further details. INCIDENTAL FINDINGS: RESOLVED PROBLEMS: SURGERIES/PROCEDURES: Date Operation/Procedure Provider Name 08/04/22 TODAY' S ASSESSMENT AND PLAN OF CARE: As above DISPOSITION - TBD CHIEF COMPLAINT/ HPI / PFSHx / EVENTS OVER LAST 24HRS: Resting in bed, no acute overnight events. REVIEW OF SYSTEMS: Other than the above items the remainder of the complete ROS is otherwise unchanged from admission. PHYSICAL EXAM: Temp: [97.3 F (36.3 C)-99 F (37.2 C)] 97.3 F (36.3 C) Heart Rate: [78-91] 78 Resp: [16-18] 17 BP: (103-127)/(68-87) 127/85 GENERAL: Appears age appropriate. No acute distress. NEUROLOGICAL: Alert and oriented X 3. Follows commands with extremities x4, equal strength. No focal neurologic deficits noted. Head: Atraumatic, normocephalic. Neck: Supple, trachea midline. Surgical dressing CDI. Drain intact with serosanguinous drainage. CARDIOVASCULAR: Regular rate and rhythm. No peripheral edema noted. RESPIRATORY: Respiratory effort unlabored without use of accessory muscles. ABDOMINAL: Rounded, soft, nontender, non distended. No guarding or peritoneal signs. GENITOURINARY: Normal genitalia for age without lesion or trauma. MUSCULOSKELETAL: Extremities atraumatic without gross deformity x4. SKIN: Skin warm and dry Intake/Output Summary (Last 24 hours) at 08/06/2023 1033 Last data filed at 08/06/2023 0819 Gross per 24 hour Intake 901.23 ml Output 2278 ml Net -1376.77 ml IMAGING [briefly note any results pertinent to today's evaluation]: No new imaging LABS Lab Results Component Value Date WBC 12.92 (H) 08/05/2023 HGB 10.9 (L) 08/05/2023 HCT 33.8 (L) 08/05/2023 MCV 84.1 08/05/2023 PLT 316 08/05/2023 RBC 4.02 08/05/2023 Lab Results Component Value Date GLUCOSE 98 08/05/2023 CALCIUM 7.9 (L) 08/05/2023 NA 140 08/05/2023 K 3.4 (L) 08/05/2023 CL 103 08/05/2023 BUN 7 (L) 08/05/2023 CREATININE 0.78 08/05/2023 Lab Results Component Value Date ALT 6 04/02/2023 AST 15 04/02/2023 ALKPHOS 55 04/02/2023 BILITOT 0.4 04/02/2023 DAILY CHECKLIST: *Need for Restraints: n/a *Need for Urinary Catheter: n/a *Need for Central Access Devices: n/a *Stress Ulcer Prophylaxis: protonix- home med *VTE Prophylaxis (Body mass index is 36.3 kg/m ., Estimated Creatinine Clearance: 104.7 mL/min (by C-G formula based on SCr of 0.78 mg/dL).): marlonnox *Home Medications Reconciled: yes *Code Status: full * Kyra Isabel CNP - 08/05/2023 6:45 AM EST [place] [facility] DAILY PROGRESS NOTE DIAGNOSIS / REASON FOR CONSULT: * Thyroid nodule Assessment & Plan S/p thyroidectomy 08/[address] Kim Drain with 30 ml serosanguinous output / 24 hours Surgical incision CDI Tolerating CLD Pain control, ambulate Pathology pending Continue Synthroid Admitted with these risk variables:None. Please see assessment and plan for further details. INCIDENTAL FINDINGS: RESOLVED PROBLEMS: SURGERIES/PROCEDURES: Date Operation/Procedure Provider Name 08/04/22 TODAY' S ASSESSMENT AND PLAN OF CARE: As above DISPOSITION - TBD CHIEF COMPLAINT/ HPI / PFSHx / EVENTS OVER LAST 24HRS: Resting in bed, no acute overnight events. REVIEW OF SYSTEMS: Other than the above items the remainder of the complete ROS is otherwise unchanged from admission. PHYSICAL EXAM: Temp: [97.3 F (36.3 C)-98 F (36.7 C)] 98 F (36.7 C) Heart Rate: [67-94] 73 Resp: [16-21] 16 BP: (110-128)/(69-118) 125/79 GENERAL: Appears age appropriate. No acute distress. NEUROLOGICAL: Alert and oriented X 3. Follows commands with extremities x4, equal strength. No focal neurologic deficits noted. Head: Atraumatic, normocephalic. Neck: Supple, trachea midline. Surgical dressing CDI. Drain intact with serosanguinous drainage. CARDIOVASCULAR: Regular rate and rhythm. No peripheral edema noted. RESPIRATORY: Respiratory effort unlabored without use of accessory muscles. ABDOMINAL: Rounded, soft, nontender, non distended. No guarding or peritoneal signs. GENITOURINARY: Normal genitalia for age without lesion or trauma. MUSCULOSKELETAL: Extremities atraumatic without gross deformity x4. SKIN: Skin warm and dry Intake/Output Summary (Last 24 hours) at 08/05/2023 0645 Last data filed at 08/05/2023 0603 Gross per 24 hour Intake 1800 ml Output 1003.5 ml Net 796.5 ml IMAGING [briefly note any results pertinent to today's evaluation]: No new imaging LABS Lab Results Component Value Date WBC 6.71 07/23/2023 HGB 12.9 07/23/2023 HCT 40.4 07/23/2023 MCV 84.9 07/23/2023 PLT 406 (H) 07/23/2023 RBC 4.76 07/23/2023 Lab Results Component Value Date GLUCOSE 92 07/23/2023 CALCIUM 8.8 07/23/2023 NA 140 07/23/2023 K 3.6 07/23/2023 CL 104 07/23/2023 BUN 6 (L) 07/23/2023 CREATININE 0.74 07/23/2023 Lab Results Component Value Date ALT 6 04/02/2023 AST 15 04/02/2023 ALKPHOS 55 04/02/2023 BILITOT 0.4 04/02/2023 DAILY CHECKLIST: *Need for Restraints: n/a *Need for Urinary Catheter: n/a *Need for Central Access Devices: n/a *Stress Ulcer Prophylaxis: protonix- home med *VTE Prophylaxis (Body mass index is 36.69 kg/m ., Estimated Creatinine Clearance: 110.4 mL/min (byC-G formula based on SCr of 0.74 mg/dL).): lovenox *Home Medications Reconciled: yes *Code Status: full Associated attestation - Gilles Kim MD - 08/05/2023 4:17 PM EST Patient c/o throat discomfort. NADYA serous drainage Mild swelling subcutaneous. I stripped the drain. A/P: Regular diet. Probable home tomorrow - NADYA to be removed if < 30 ml / 24 hours by tomorrow am. Per Dr. Kaur: Discharge on Levothyroxine 175 mcg daily, take on an empty stomach, only with water, 1 hour before food / drinks / other meds, and 4 hours apart from calcium, magnesium, iron, multivitamin supplements. If misses a dose one day, take double the dose next day. documented in this [id number] Note* Plan of Care - Bre Figueredo RN - 08/05/2023 6:46 PM EST Problem: Actual or potential alteration in health Goal: Absence of healthcare acquired conditions Outcome: Partially Met Goal: Knowledge of Interdisciplinary Plan of Care Outcome: Partially Met Goal: Knowledge of Enviroment Outcome: Partially Met Problem: Pain Goal: Manage acute pain Outcome: Partially Met Goal: Manage chronic pain Outcome: Partially Met Goal: Reduced pain sensation Outcome: Partially Met Goal: Achievement of comfort function goal Outcome: Partially Met Problem: Falls, Risk of Goal: Absence of falls Outcome: Partially Met [id number] Evaluation + Plan note* Assessment & Plan Note - Kyra Isabel CNP - 08/05/2023 6:45 AM ESTAssociated Problem(s): Thyroid nodule S/p thyroidectomy 08/[address] Kim [id number] Note* Plan of Care - Lindsay Lucero RN - 08/04/2023 10:52 PM EST POC initiated Problem: Actual or potential alteration in health Goal: Absence of healthcare acquired conditions Outcome: Not Met Goal: Knowledge of Interdisciplinary Plan of Care Outcome: Not Met Goal: Knowledge of Enviroment Outcome: Not Met Problem: Pain Goal: Manage acute pain Outcome: Not Met Goal: Manage chronic pain Outcome: Not Met Goal: Reduced pain sensation Outcome: Not Met Goal: Achievement of comfort function goal Outcome: Not Met [id number] Note* Plan of Care - Leeanne Tadeo RN - 08/04/2023 8:50 PM EST Problem: Actual or potential alteration in health Goal: Absence of healthcare acquired conditions Outcome: Partially Met Goal: Knowledge of Interdisciplinary Plan of Care Outcome: Partially Met Goal: Knowledge of Enviroment Outcome: Partially Met Problem: Pain Goal: Manage acute pain Outcome: Partially Met Goal: Manage chronic pain Outcome: Partially Met Goal: Reduced pain sensation Outcome: Partially Met Goal: Achievement of comfort function goal Outcome: Partially Met [id number] Note* Op Note - Gilles Kim MD - 08/04/2023 12:50 PM EST OPERATIVE NOTE - 08/04/23 PATIENT: Damaris Dykes : 1985 AGE: 38 y.o. SEX: female RACE: [1] PCP: Olga Dhillon CNP REFERRAL: Gilles Kim MD Time Out Performed Yes Site Marking N/A Informed Consent Yes Referring Surgeon Gilles Kim MD Pre-op Dx Thyroid nodule high suspicion for malignancy. Procedure Total thyroidectomy Laterality N/A Post-op Dx Same Anesthesia Operations Support Specialist Loli ANGULO Positioning Supine sniffing Area prepped and draped Neck and chest Details of Procedure An 8 cm transverse incision was made 2 finger breadths above the sternal notchin a Mary's crease line and extended through the subcutaneous tissues and platysma muscle. Superior and inferior subplatysmal flaps were raised and a Mahorner retractor placed. The strap muscles were divided in the midline and retracted laterally. The tissue planes were sticky and the dissection was tedious suspicious for thyroiditis. We beganthe dissection initially on the right side. The strap muscles were mobilized off the thyroid gland.The thyroid gland was rotated medially and anteriorly. The inferior thyroid pole vessels were divided between clamps and tied with #2-0 Silk. Tiny blood vessels were ligated with clips. The superior pole vessels were divided between clamps and tied with #2-0 Silk with care to avoid injury to the superior laryngeal nerve. The inferior thyroid artery and middle thyroid vein branches immediately adjacent to the thyroid were taken down between clips and where necessary tied with #3-0 Silk. Parathyroid glands were identified and preserved. The recurrent laryngeal nerve was identified and preserved. The Ligament of Carroll was taken down carefully between clamps and tied with #3-0 Silk ties. The thyroid was mobilized off the trachea. Next, we proceeded to perform the dissection on the left side. This was performed in exactly the same manner as the right side. Close to the left inferior lobe was a lesion that possibly was a exophytic thyroid nodule vs a lymph node and this was excised and sent to pathology separately. The thyroid gland was marked for orientation and sent to pathology. Surgicel and Tisseal were used.A TLS drain was inserted. The strap muscles were reapproximated in the midline with #3-0 Vicryl. The Platysma was reapproximated with #3-0 Vicryl. The skin was closed with #4-0 Prolene simple interrupted sutures. Bacitracin, gauze, and Medipore tape were applied. Hemostasis Good EBL 20 ml. Complications None Specimens Right and left thyroid. Left inferior thyroid vs. Lymph node lesion. Wound Class 1 Sponge / Instrument / Needle Counts Correct Disposition Tolerated well. Layout PNSHETH [id number] Attending History and physical note* Gilles Kim MD - 08/04/2023 12:02 PM EST [x] The H&P has been reviewed and the patient has been examined. [x] It is appropriate to proceed with the planned procedure. [] Site marking was performed. Source Note - Gilles Kim MD - 07/23/2023 1:15 PM EST PATIENT: Damaris Dykes : 1985 AGE: 38 y.o. SEX: female RACE: [1] PCP: Olga Dhillon, BEATRICE REFERRAL: Mo Kaur* PLACE OF SERVICE [x] OFFICE REVIEWED Chart Reviewed HISTORIAN Source Patient Quality Good Accompanied by Her mother, Damaris MATOS I have a nodule that is probably cancer HPI 2018 had dysphagia and they found the nodule. This was biopsied and was benign. For the last 2 years has lost 170 lbs and has a variety of symptoms of inability to eat. Recently after a thyroid biopsy she has been able to eat and has gained 8 pounds. A geothermal hvac technician has told her she has rapid gastric emptying. Since the biopsy also she has right neck and shoulder pain. She has lots of diarrhea. FNA of her right sided nodule was highly suspicious for malignancy on genetic testing at 95%. Neck pain / mass Yes Dysphagia Yes Hoarseness No Weight gain / loss Yes Hot / cold intolerance No Constipation / diarrhea Yes Depression / anxiety Yes Skin / hair / nail problems No Arrythmia No FH Thyroid dz No Diagnostic w/u so far (U/S, CT, FNA, Nuc Med ) U/S and FNA ROS Questionnaire Reviewed: Today Pertinent positives checked below: Const []Fevers, [x]chills, [x]fatigue, []recent weight loss Eyes []double vision, []cataracts ENT/Mouth [x]difficulty swallowing, []bloody noses CV []high blood pressure, [x]chest pain or angina, []heart rhythm problem, [x]difficulty breathing with exertion, []blood clots, []leg swelling Resp []shortness of breath, []asthma, [x]cough, [x]sleep apnea GI [x]nausea, []vomiting, [x]constipation, [x]diarrhea, []blood in stools, [x]abdominal pain, [x]appetite changes []blood in urine, []painful urination, [x]frequent urination, []urine infections, []urinary incontinence MS [x]arthritis, []gout Skin []rashes, []skin cancer Neuro []seizures, []syncope, []stroke, [x]weakness Psych [x]depression, [x]anxiety Endo []high or low blood sugar, []thyroid problems Heme/Lymph []anemia, []lymph node enlargement, []bleeding problems Breast [x]breast pain, []nipple discharge, []breast mass Other Comments: vision changes PMH / PSH I reconciled this with [facility] information Past Medical History: Diagnosis Date Abnormal cervical Papanicolaou smear Anxiety and depression Arthritis Bipolar 1 disorder (HCC) DDD (degenerative disc disease), thoracic lumbar and cervical Dumping syndrome Gastric Gallstones GERD (gastroesophageal reflux disease) Heel spur Hyperlipidemia Hypertension Knee dislocation left MDD (major depressive disorder) Obesity Personality disorder in adult ([facility]) Pleurisy PTSD (post-traumatic stress disorder) Schizo affective schizophrenia ([facility]) Sleep apnea no CPAP Social phobia Suicidal ideation Thyroid nodule 06/2023 Right, 3.7 cm diameter; FNA: atypia, Genetic testing 95% risk of malignancy...HAIRSPRING ASSEMBLER: Mo Quiroz Vitamin D deficiency Past Surgical History: Procedure Laterality Date CARPAL TUNNEL RELEASE OPEN Right 04/29/2023 Surgeon: Varinder Mohr MD CHOLECYSTECTOMY COLONOSCOPY 11/10/[address] [facility], normal COLONOSCOPY N/A 05/14/2023 with biopsy; Surgeon: Brandon Norton MD COLPOSCOPY DILATION AND CURETTAGE OF UTERUS ESOPHAGOGASTRODUODENOSCOPY 02/24/[address] [facility], mild chronic inactive gastritis with rare h-pylori LUNG SURGERY Left early 20's, filled with fluid MULTIPLE TOOTH EXTRACTIONS wears dentures PIERCINGS AND TATTOOS PLANTAR FASCIA SURGERY Bilateral THORACENTESIS US THYROID BIOPSY WITH FNA 06/08/2023 US THYROID BIOPSY WITH FNA 06/08/2023 Danny Arevalo DO ULTRASOUND OB History 2 Para 2 Term 2 AB 0 Living 2 SAB 0 IAB Ectopic Multiple Live Births 2 FAM HX Family History Problem Relation Age of Onset Arthritis Mother Diabetes Mother edentulous Achalasia Mother Asthma Mother with atopy Hypertension Mother Other (psychiatric disorder) Mother Stroke Mother Thyroid disease Mother Fibromyalgia Mother Sleep apnea Mother Restless legs syndrome Mother Peripheral vascular disease Mother Hypertension Father Peripheral vascular disease Father Achalasia Maternal Grandmother Alzheimer's disease Maternal Grandmother COPD Maternal Grandmother Coronary artery disease Maternal Grandmother Heart attack Maternal Grandmother Diabetes Maternal Grandmother Rheum arthritis Maternal Grandmother Breast cancer Paternal Grandmother Asthma Brother atopy Colon cancer Maternal Great-Grandfather unknown age of onset Rectal cancer Neg Hx SOC HX Social History Occupational History Not on file Tobacco Use Smoking status: Every Day Packs/day: 1.50 Years: 20.00 Additional pack years: 0.00 Total pack years: 30.00 Types: Cigarettes Smokeless tobacco: Never Tobacco comments: Patient wants to quit Vaping Use Vaping Use: Former Substance and Sexual Activity Alcohol use: Not Currently Drug use: Yes Types: Marijuana Comment: medical Sexual activity: Yes Partners: Male control/protection: None MEDICATIONS Current Outpatient Medications Medication Instructions acetaminophen (TYLENOL ER) 650 mg, Oral, Every 8 hours PRN ascorbic acid (vitamin C) (VITAMIN C) 1,000 mg, Oral, Daily calcium-vitamin D (OS-TONEY +D) 500 mg-5 mcg (200 unit) per tablet 1 tablet, Oral, 2 times daily withmeals cyclobenzaprine (FLEXERIL) 10 mg, Oral, 3 times daily PRN dicyclomine (BENTYL) 20 mg, Oral, 4 times daily PRN hydrOXYzine (VISTARIL) 100 mg, Oral, 2 times daily ondansetron (ZOFRAN) 8 mg, Oral, Every 8 hours PRN pantoprazole (PROTONIX) 40 mg, Oral, 2 times daily potassium chloride (KLOR-CON) 20 mEq packet 20 mEq, Oral, Daily ALLERGIES Allergies Allergen Reactions Mirtazapine Other (See Comments) Mental status changes Adhesive Tape-Silicones Hives blisters EXAM Vitals BP 112/77 Pulse 83 Resp 14 Ht 5' 10 Wt 114.3 kg (252 lb) SpO2 98% BMI 36.16 kg/m Obesity Yes Const Alert, oriented, cooperative, pleasant, NAD HEENT AT/NC, Perr Neck no thyromegaly, right thyroid nodule about 2.5 cm diameter, no bruits Cor RRR, no murmurs Lungs clear to auscultation, no wheezes or rales Abd soft, NT, ND, no masses, no HSM, no peritoneal signs Hernia no abdominal wall hernias Musc / Back no CVA tenderness Ext no LE edema, no UE or LE deformities, normal pulses B LE's Neuro no gross deficits Psych normal affect Lymph no neck LA Skin / Other No obvious rashes LABS / RADIOLOGY Date: 06/25/2023 Wbc Hgb Hematocrit Plt Na K BUN Cr Glu AST ALT Alk Phos T. Bili Lipase Lactate free T4 1 TSH 0.91 Images reviewed personally and my interpretation is included below PATH: R thyroid nodule: atypia of undetermined significance, Genetic testing shows 95% risk of malignancy Other: ASSESSMENT / PLAN Right thyroid nodule highly suspicious for malignancy. Discussed right thyroidectomy vs. Total thyroidectomy. She feels her thyroid nodule may be responsible for her dysphagia and psychiatric issues such as depression, anxiety, etc. Only way to see is if her symptoms improve after surgery. She wishes to proceed with total thyroidectomy. Diff Dx As above. Co-morbidities PMH/PSH Yes SH Yes Age No Anticoagulation No Other Patient Morbidity risk (see co-morbidities above) Obesity, GERD, sleep apnea, psychiatric issues Procedural Risks Discussed Bleeding, Infection, Risks of anesthesia, injury to the laryngeal nerves, injury to parathyroid glands. Anticipated Anesthesia General Consent Risks / Rationale / Benefits / Alternatives discussed Yes Informed consent obtained Yes Questions Answered Yes Location [x][facility] OR ORDERS / F/U PAT: cbc, BMP, ancef liaison inspection laboratory assistant to OR; schedule OR CODING SOLUTIONS, [employer] PROBLEMS ADDRESSED & THEIR COMPLEXITY New undiagnosed w/ uncertain prognosis (OP 4_IP 2_ER 4). *For select categories, select higher level if ?2 problems addressed Documentation: Thyroid nodule DATA REVIEWED & ANALYZED *3 Points from Notes reviewed from each unique source, Each unique test ordered, Each unique test reviewed, Assessment req an independent historian (OP 4,5_IP 2,3_ER 4,5). *For select categories, select higher level if 2 of 3 categories satisfied Documentation: Review path, thyroid function tests RISK OF MANAGEMENT / TREATMENT HIGH (e.g. Rx Drug re intensive monitoring for toxicity; Extensive discussion re Dx of CA and multiple Rx options (surgery, chemo, XRT incl risks and benefits); Shared decision making re a) elective major Sx w/ identified pt / proc risk factors, b) emergency major Sx, c) hospitalization; Decision for DNR / de- escalate care due to poor prognosis) (OP 5_IP 3_ER 5). Documentation: Total thyroidectomy [employer] [id number] History and physical note* Gilles iKm MD - 08/04/2023 12:02 PM EST [x] The H&P has been reviewed and the patient has been examined. [x] It is appropriate to proceed with the planned procedure. [] Site marking was performed. Source Note - Gilles iKm MD - 07/23/2023 1:15 PM EST PATIENT: Damaris Dykes : 1985 AGE: 38 y.o. SEX: female RACE: [1] PCP: Olga Dhillon, BEATRICE REFERRAL: Mo Kaur* PLACE OF SERVICE [x] OFFICE REVIEWED Chart Reviewed HISTORIAN Source Patient Quality Good Accompanied by Her mother, Damaris MATOS I have a nodule that is probably cancer HPI 2018 had dysphagia and they found the nodule. This was biopsied and was benign. For the last 2 years has lost 170 lbs and has a variety of symptoms of inability to eat. Recently after a thyroid biopsy she has been able to eat and has gained 8 pounds. A geothermal hvac technician has told her she has rapid gastric emptying. Since the biopsy also she has right neck and shoulder pain. She has lots of diarrhea. FNA of her right sided nodule was highly suspicious for malignancy on genetic testing at 95%. Neck pain / mass Yes Dysphagia Yes Hoarseness No Weight gain / loss Yes Hot / cold intolerance No Constipation / diarrhea Yes Depression / anxiety Yes Skin / hair / nail problems No Arrythmia No FH Thyroid dz No Diagnostic w/u so far (U/S, CT, FNA, Nuc Med ) U/S and FNA ROS Questionnaire Reviewed: Today Pertinent positives checked below: Const []Fevers, [x]chills, [x]fatigue, []recent weight loss Eyes []double vision, []cataracts ENT/Mouth [x]difficulty swallowing, []bloody noses CV []high blood pressure, [x]chest pain or angina, []heart rhythm problem, [x]difficulty breathing with exertion, []blood clots, []leg swelling Resp []shortness of breath, []asthma, [x]cough, [x]sleep apnea GI [x]nausea, []vomiting, [x]constipation, [x]diarrhea, []blood in stools, [x]abdominal pain, [x]appetite changes []blood in urine, []painful urination, [x]frequent urination, []urine infections, []urinary incontinence MS [x]arthritis, []gout Skin []rashes, []skin cancer Neuro []seizures, []syncope, []stroke, [x]weakness Psych [x]depression, [x]anxiety Endo []high or low blood sugar, []thyroid problems Heme/Lymph []anemia, []lymph node enlargement, []bleeding problems Breast [x]breast pain, []nipple discharge, []breast mass Other Comments: vision changes PMH / PSH I reconciled this with [facility] information Past Medical History: Diagnosis Date Abnormal cervical Papanicolaou smear Anxiety and depression Arthritis Bipolar 1 disorder (HCC) DDD (degenerative disc disease), thoracic lumbar and cervical Dumping syndrome Gastric Gallstones GERD (gastroesophageal reflux disease) Heel spur Hyperlipidemia Hypertension Knee dislocation left MDD (major depressive disorder) Obesity Personality disorder in adult (HCC) Pleurisy PTSD (post-traumatic stress disorder) Schizo affective schizophrenia (HCC) Sleep apnea no CPAP Social phobia Suicidal ideation Thyroid nodule 06/2023 Right, 3.7 cm diameter; FNA: atypia, Genetic testing 95% risk of malignancy...HAIRSPRING ASSEMBLER: Mo Quiroz Vitamin D deficiency Past Surgical History: Procedure Laterality Date CARPAL TUNNEL RELEASE OPEN Right 04/29/2023 Surgeon: Varinder Mohr MD CHOLECYSTECTOMY COLONOSCOPY 11/10/[address] [facility], normal COLONOSCOPY N/A 05/14/2023 with biopsy; Surgeon: Brandon Norton MD COLPOSCOPY DILATION AND CURETTAGE OF UTERUS ESOPHAGOGASTRODUODENOSCOPY 02/24/[address] [facility], mild chronic inactive gastritis with rare h-pylori LUNG SURGERY Left early 20's, filled with fluid MULTIPLE TOOTH EXTRACTIONS wears dentures PIERCINGS AND TATTOOS PLANTAR FASCIA SURGERY Bilateral THORACENTESIS US THYROID BIOPSY WITH FNA 06/08/2023 US THYROID BIOPSY WITH FNA 06/08/2023 Danny Arevalo DO ULTRASOUND OB History 2 Para 2 Term 2 AB 0 Living 2 SAB 0 IAB Ectopic Multiple Live Births 2 FAM HX Family History Problem Relation Age of Onset Arthritis Mother Diabetes Mother edentulous Achalasia Mother Asthma Mother with atopy Hypertension Mother Other (psychiatric disorder) Mother Stroke Mother Thyroid disease Mother Fibromyalgia Mother Sleep apnea Mother Restless legs syndrome Mother Peripheral vascular disease Mother Hypertension Father Peripheral vascular disease Father Achalasia Maternal Grandmother Alzheimer's disease Maternal Grandmother COPD Maternal Grandmother Coronary artery disease Maternal Grandmother Heart attack Maternal Grandmother Diabetes Maternal Grandmother Rheum arthritis Maternal Grandmother Breast cancer Paternal Grandmother Asthma Brother atopy Colon cancer Maternal Great-Grandfather unknown age of onset Rectal cancer Neg Hx SOC HX Social History Occupational History Not on file Tobacco Use Smoking status: Every Day Packs/day: 1.50 Years: 20.00 Additional pack years: 0.00 Total pack years: 30.00 Types: Cigarettes Smokeless tobacco: Never Tobacco comments: Patient wants to quit Vaping Use Vaping Use: Former Substance and Sexual Activity Alcohol use: Not Currently Drug use: Yes Types: Marijuana Comment: medical Sexual activity: Yes Partners: Male control/protection: None MEDICATIONS Current Outpatient Medications Medication Instructions acetaminophen (TYLENOL ER) 650 mg, Oral, Every 8 hours PRN ascorbic acid (vitamin C) (VITAMIN C) 1,000 mg, Oral, Daily calcium-vitamin D (OS-TONEY +D) 500 mg-5 mcg (200 unit) per tablet 1 tablet, Oral, 2 times daily withmeals cyclobenzaprine (FLEXERIL) 10 mg, Oral, 3 times daily PRN dicyclomine (BENTYL) 20 mg, Oral, 4 times daily PRN hydrOXYzine (VISTARIL) 100 mg, Oral, 2 times daily ondansetron (ZOFRAN) 8 mg, Oral, Every 8 hours PRN pantoprazole (PROTONIX) 40 mg, Oral, 2 times daily potassium chloride (KLOR-CON) 20 mEq packet 20 mEq, Oral, Daily ALLERGIES Allergies Allergen Reactions Mirtazapine Other (See Comments) Mental status changes Adhesive Tape-Silicones Hives blisters EXAM Vitals BP 112/77 Pulse 83 Resp 14 Ht 5' 10 Wt 114.3 kg (252 lb) SpO2 98% BMI 36.16 kg/m Obesity Yes Const Alert, oriented, cooperative, pleasant, NAD HEENT AT/NC, Perr Neck no thyromegaly, right thyroid nodule about 2.5 cm diameter, no bruits Cor RRR, no murmurs Lungs clear to auscultation, no wheezes or rales Abd soft, NT, ND, no masses, no HSM, no peritoneal signs Hernia no abdominal wall hernias Musc / Back no CVA tenderness Ext no LE edema, no UE or LE deformities, normal pulses B LE's Neuro no gross deficits Psych normal affect Lymph no neck LA Skin / Other No obvious rashes LABS / RADIOLOGY Date: 06/25/2023 Wbc Hgb Hematocrit Plt Na K BUN Cr Glu AST ALT Alk Phos T. Bili Lipase Lactate free T4 1 TSH 0.91 Images reviewed personally and my interpretation is included below PATH: R thyroid nodule: atypia of undetermined significance, Genetic testing shows 95% risk of malignancy Other: ASSESSMENT / PLAN Right thyroid nodule highly suspicious for malignancy. Discussed right thyroidectomy vs. Total thyroidectomy. She feels her thyroid nodule may be responsible for her dysphagia and psychiatric issues such as depression, anxiety, etc. Only way to see is if her symptoms improve after surgery. She wishes to proceed with total thyroidectomy. Diff Dx As above. Co-morbidities PMH/PSH Yes SH Yes Age No Anticoagulation No Other Patient Morbidity risk (see co-morbidities above) Obesity, GERD, sleep apnea, psychiatric issues Procedural Risks Discussed Bleeding, Infection, Risks of anesthesia, injury to the laryngeal nerves, injury to parathyroid glands. Anticipated Anesthesia General Consent Risks / Rationale / Benefits / Alternatives discussed Yes Informed consent obtained Yes Questions Answered Yes Location [x][facility] OR ORDERS / F/U PAT: cbc, BMP, ancef liaison inspection laboratory assistant to OR; schedule OR CODING SOLUTIONS, [employer] PROBLEMS ADDRESSED & THEIR COMPLEXITY New undiagnosed w/ uncertain prognosis (OP 4_IP 2_ER 4). *For select categories, select higher level if ?2 problems addressed Documentation: Thyroid nodule DATA REVIEWED & ANALYZED *3 Points from Notes reviewed from each unique source, Each unique test ordered, Each unique test reviewed, Assessment req an independent historian (OP 4,5_IP 2,3_ER 4,5). *For select categories, select higher level if 2 of 3 categories satisfied Documentation: Review path, thyroid function tests RISK OF MANAGEMENT / TREATMENT HIGH (e.g. Rx Drug re intensive monitoring for toxicity; Extensive discussion re Dx of CA and multiple Rx options (surgery, chemo, XRT incl risks and benefits); Shared decision making re a) elective major Sx w/ identified pt / proc risk factors, b) emergency major Sx, c) hospitalization; Decision for DNR / de- escalate care due to poor prognosis) (OP 5_IP 3_ER 5). Documentation: Total thyroidectomy Hiphunters documented in this [id number] Nurse Note* Yesica Sosa RN - 08/04/2023 10:53 AM EST Anesthesia at bedside for consent. Pt anxious at this time and requesting medication for her anxiety. Dr. Soliman verbalizes order for Versed 2mg IV. [id number] Nurse Note* Yesica Sosa RN - 08/04/2023 10:53 AM EST Anesthesia at bedside for consent. Pt anxious at this time and requesting medication for her anxiety. Dr. Soliman verbalizes order for Versed 2mg IV. documented in this [id number] History of Present illness Narrative* Lindsay Sherman CNP - 08/03/2023 11:17 AM EST Damaris Dykes 38 y.o. 1985 female Changes since last visit: 38-year-old female returns to the office for 2-month follow-up regarding 2-year history of ongoing chronic diarrhea with urgency and incontinence, abdominal pain, nausea, early satiety, odynophagia, globus sensation, and weight loss. Since last visit she reports she had thyroid biopsy and is havingtotal thyroidectomy tomorrow with Dr. Kim. She is establishing with [facility] and has office visit next. She continues to follow with patient registration clerk Dr. Kaur. She says since having the thyroid biopsy she has been eating better, abdominal pain is resolved and no diarrhea, still with some constipationand has gained some weight, although now she says she is having more tongue, throat, neck and should er pain and also has metallic taste in her mouth most of the time. She has had recent COVID and flutesting which was negative. She quit smoking cigarettes and also quit marijuana use. She has been snacking on popcorn and pretzels, cut down on Mountain Dew consumption, and continues to eat 2 regular meals a day. Continues to endorse difficulty swallowing, says painful at times and feeling as if food is sticking in her esophagus. Notices she is recently reconnected with her mother after 20 yearsand her mother has history of achalasia and she is questioning if this is possibly what is going onwith her as well. Past Medical History: Past Medical History: Diagnosis Date Abnormal cervical Papanicolaou smear Anxiety and depression Arthritis Bipolar 1 disorder (HCC) DDD (degenerative disc disease), thoracic lumbar and cervical Dumping syndrome Gastric Gallstones GERD (gastroesophageal reflux disease) Heel spur Hyperlipidemia Hypertension Knee dislocation left MDD (major depressive disorder) Obesity Personality disorder in adult (HCC) Pleurisy PTSD (post-traumatic stress disorder) Schizo affective schizophrenia (HCC) Sleep apnea no CPAP Social phobia Suicidal ideation Thyroid nodule 06/2023 Right, 3.7 cm diameter; FNA: atypia, Genetic testing 95% risk of malignancy...HAIRSPRING ASSEMBLER: Mo Quiroz Vitamin D deficiency Surgical History & Procedures: Past Surgical History: Procedure Laterality Date CARPAL TUNNEL RELEASE OPEN Right 04/29/2023 Surgeon: Varinder Mohr MD CHOLECYSTECTOMY COLONOSCOPY 11/10/[address] [facility], normal COLONOSCOPY N/A 05/14/2023 with biopsy; Surgeon: Brandon Norton MD COLPOSCOPY DILATION AND CURETTAGE OF UTERUS ESOPHAGOGASTRODUODENOSCOPY 02/24/[address] [facility], mild chronic inactive gastritis with rare h-pylori LUNG SURGERY Left early 20's, filled with fluid MULTIPLE TOOTH EXTRACTIONS wears dentures PIERCINGS AND TATTOOS PLANTAR FASCIA SURGERY Bilateral THORACENTESIS US THYROID BIOPSY WITH FNA 06/08/2023 US THYROID BIOPSY WITH FNA 06/08/2023 Danny Arevalo DO ULTRASOUND Social History: Social History Socioeconomic History Marital status: Single Tobacco Use Smoking status: Former Packs/day: 1.50 Years: 20.00 Additional pack years: 0.00 Total pack years: 30.00 Types: Cigarettes Quit date: 07/26/2023 Years since quittin.0 Smokeless tobacco: Never Vaping Use Vaping Use: Former Substance and Sexual Activity Alcohol use: Not Currently Drug use: Not Currently Types: Marijuana Comment: medical Sexual activity: Yes Partners: Male control/protection: None Social Determinants of Health Financial Resource Strain: High Risk (05/03/2023) Overall Financial Resource Strain (CARDIA) Difficulty of Paying Living Expenses: Very hard Food Insecurity: Food Insecurity Present (05/03/2023) Hunger Vital Sign Worried About Running Out of Food in the Last Year: Sometimes true Ran Out of Food in the Last Year: Sometimes true Transportation Needs: No Transportation Needs (05/03/2023) PRAPARE - Transportation Lack of Transportation (Medical): No Lack of Transportation (Non-Medical): No Physical Activity: Inactive (05/03/2023) Exercise Vital Sign Days of Exercise per Week: 0 days Minutes of Exercise per Session: 0 min Stress: Stress Concern Present (05/03/2023) [employer] - Occupational Stress Questionnaire Feeling of Stress : Very much Social Connections: Socially Isolated (05/03/2023) Social Connection and Isolation Panel [NHANES] Frequency of Communication with Friends and Family: Never Frequency of Social Gatherings with Friends and Family: Never Attends Cheondoism Services: Never Active Member of Clubs or Organizations: No Attends Club or Organization Meetings: Never Marital Status: Living with partner Housing Stability: High Risk (05/03/2023) Housing Stability Vital Sign Unable to Pay for Housing in the Last Year: Yes Number of Places Lived in the Last Year: 4 Unstable Housing in the Last Year: Yes Current Medications: Current Outpatient Medications Medication Sig Dispense Refill acetaminophen (TYLENOL ER) 650 MG CR tablet Take 1 (one) tablet (650 mg total) by mouth every 8 (eight) hours as needed for pain . 30 tablet 1 ascorbic acid, vitamin C, (vitamin C) 1000 MG tablet Take 1 (one) tablet (1,000 mg total) by mouth daily . cyclobenzaprine (FLEXERIL) 10 MG tablet Take 1 (one) tablet (10 mg total) by mouth 3 (three) times a day as needed for muscle spasms . 90 tablet 0 hydrOXYzine (VISTARIL) 100 MG capsule Take 1 (one) capsule (100 mg total) by mouth 2 (two) times a day . 60 capsule 1 pantoprazole (PROTONIX) 40 MG tablet Take 1 (one) tablet (40 mg total) by mouth 2 (two) times a day. 60 tablet 2 calcium-vitamin D (OS-TONEY +D) 500 mg-5 mcg (200 unit) per tablet Take 1 (one) tablet by mouth 2 (two) times a day with meals . (Patient not taking: Reported on 05/31/2023 .) 60 tablet 11 dicyclomine (BENTYL) 20 mg tablet Take 1 (one) tablet (20 mg total) by mouth 4 (four) times a day as needed . (Patient not taking: Reported on 06/14/2023 .) 120 tablet 5 ondansetron (ZOFRAN) 8 MG tablet Take 1 (one) tablet (8 mg total) by mouth every 8 (eight) hours asneeded for nausea (nausea or vomiting) . (Patient not taking: Reported on 06/14/2023 .) 20 tablet 2 potassium chloride (KLOR-CON) 20 mEq packet Take 20 (twenty) mEq by mouth daily . 30 packet 0 No current facility-administered medications for this visit. Review of Systems Constitutional: Negative for fatigue and fever. HENT: Positive for sore throat and trouble swallowing. Respiratory: Negative for choking and shortness of breath. Gastrointestinal: Negative for abdominal pain, blood in stool, constipation and diarrhea. Skin: Negative for color change and pallor. Neurological: Negative for dizziness and weakness. Physical Exam Constitutional: General: She is not in acute distress. Cardiovascular: Rate and Rhythm: Normal rate and regular rhythm. Heart sounds: No murmur heard. Pulmonary: Effort: Pulmonary effort is normal. No respiratory distress. Breath sounds: Normal breath sounds. No wheezing. Abdominal: General: Bowel sounds are normal. There is no distension. Palpations: Abdomen is soft. Tenderness: There is no abdominal tenderness. Neurological: Mental Status: She is alert. Lab Draw on 07/23/2023 Component Date Value Ref Range Status Sodium 07/23/2023 140 135 - 145 mmol/L Final Potassium 07/23/2023 3.6 3.5 - 5.1 mmol/L Final Chloride 07/23/2023 104 98 - 108 mmol/L Final Bicarbonate 07/23/2023 31 21 - 32 mmol/L Final Anion Gap 07/23/2023 9 (L) 10 - 20 mmol/L Final Glucose 07/23/2023 92 65 - 99 mg/dL Final BUN 07/23/2023 6 (L) 8 - 25 mg/dL Final Creatinine 07/23/2023 0.74 0.40 - 1.10 mg/dL Final eGFR 07/23/2023 106 >=60 mL/min/1.73 m2 Final Estimated GFR was calculated using the 2020 CKD-EPI creatinine equation. BUN/Creatinine Ratio 07/23/2023 8.1 (L) 10.0 - 20.0 Final Calcium 07/23/2023 8.8 8.4 - 10.2 mg/dL Final WBC 07/23/2023 6.71 4.50 - 11.00 K/mcL Final RBC 07/23/2023 4.76 4.00 - 5.20 M/mcL Final Hemoglobin 07/23/2023 12.9 12.0 - 16.0 g/dL Final Hematocrit 07/23/2023 40.4 36.0 - 46.0 % Final MCV 07/23/2023 84.9 80.0 - 100.0 fL Final MCH 07/23/2023 27.1 26.0 - 34.0 pg Final MCHC 07/23/2023 31.9 31.0 - 37.0 g/dL Final Platelets 07/23/2023 406 (H) 150 - 400 K/mcL Final RDW - CV 07/23/2023 14.5 11.6 - 14.8 % Final MPV 07/23/2023 9.5 9.4 - 12.4 fL Final Nucleated RBC 07/23/2023 0.0 % Final Nucleated RBC Abs 07/23/2023 0.00 0.00 - 0.00 K/mcL Final Lab Draw on 07/20/2023 Component Date Value Ref Range Status Potassium 07/20/2023 3.5 3.5 - 5.1 mmol/L Final Lab Requisition on 07/14/2023 Component Date Value Ref Range Status Test Name: 07/14/2023 Adrenocorticotropic Hormone Final Result: 07/14/2023 See Scanned Result Final Office Visit on 07/14/2023 Component Date Value Ref Range Status Strep A Screen 07/14/2023 Negative Negative Final SARS-CoV-2 07/14/2023 Not Detected Not Detected Final Influenza A 07/14/2023 Not Detected Not Detected Final Influenza B 07/14/2023 Not Detected Not Detected Final Infusion/Injection on 07/14/2023 Component Date Value Ref Range Status Cortisol Post Cortrosyn 07/14/2023 17.9 1.0 - 25.0 mcg/dL Final Cortisol, Baseline Pre-Cortrosyn 07/14/2023 10.6 5.0 - 25.0 mcg/dL Final ACTH 07/20/2023 19.3 7.2 - 63.3 pg/mL Final Cortisol Post Cortrosyn 07/14/2023 21.2 1.0 - 25.0 mcg/dL Final Assessment & Plan: Dysphagia- Odynophagia- Globus sensation- Scheduled for total thyroidectomy with Dr. Kim tomorrow. -Encouraged continued abstaining from tobacco and marijuana use -Continue previously discussed dietary changes -upper GI with esophagram Complete testing in 1 month to 6 weeks from now Follow-up in 2 months Lindsay Sherman CNP Please note: Portions of this chart may have been created with [email or web address] voice recognition software. Occasional wrong-word or sound-like substitutions may have occurred due to inherent limitations of the voice recognition software. Please read the chart carefully and recognize, using context, where the substitutions have occurred. documented in this [id number] History of Present illness Narrative* Judith Stuart RN - 07/14/2023 10:08 AM EST Labs drawn as ordered, discharged patient off floor ambulatory * Judith Stuart RN - 07/14/2023 8:50 AM EST Medicated with 0.25mg Cosyntropin IVP as ordered, flushed with NS, tolerated well, discontinued IV per [facility] P&P documented in this [id number] History of Present illness Narrative* Mo Kaur MD - 07/08/2023 3:00 PM EST Reason for visit/chief complaint: pt has hx thyroid nodules and had FNA last week that came back abnormal with atypia, molecular testing is pending Date: 07/08/2023 Referring Provider: No ref. provider found Primary Care Provider: Olga Dhillon CNP HPI: Subjective/interval hx: 07/08/2023: no change in symptoms compared to last visit. No recent steroids/biotin/E containing meds. Background from the initial consult note from 06/23/2023: Ms. Dykes is a 38 y.o. female with hx of bipolar disorder, PTSD, personality disorder, schizoaffective schizophrenia, sleep apnea, cholecystectomy. She has been having issues with difficulty swallowing solids/liquids since 2018 (present all the time, stable, mainly ?gets stuck in chest then builds up, ?sometimes gets stuck at neck level; patientis not very clear on that). At that time, she had thyroid US showing a big 3.9 cm nodule on R side (reported as heterogenous) and small 4 mm nodule on L side. FNA of the R nodule was done in 09/2018 which came back benign. Repeat US since that time have shown a stable nodule. She recalls that she saw a surgeon for ?possible thyroidectomy, but that didn't happen and she doesn't remember the details. Thyroid US in 04/2023 reported R 3.7 cm TR3 nodule (as below). TSH has been normal. FNA was done on 06/08/2023; results showed AUS, and seems that it was sent for molecular testing per notes but results are not back yet. No choking on food or voice changes, but has been having pain on R side since she had the most recent FNA on 06/08/2023. She feels like choking when she lies on her back. Has nausea/vomiting/diarrhea. Appetite is good but she can't eat well because of dysphagia and she feels full soon. Gets abdominal pain on eating. Has dizziness. Has extreme fatigue, and weakness. She lost ~175 lb since 2019, but weight has been stable since then. Risk factors: -Hx of autoimmune diseases: no -Family hx of thyroid disease/cancer: no -Hx of high risk/interfering medications: no biotin/steroids/ control -Hx of head/neck irradiation: no -Smoking: yes Review of Systems: as per HPI Medical History: Past Medical History: Diagnosis Date Abdominal pain Anxiety and depression Bipolar 1 disorder (HCC) Personality disorder in adult (HCC) PTSD (post-traumatic stress disorder) Schizo affective schizophrenia (HCC) Sleep apnea Surgical History: Past Surgical History: Procedure Laterality Date CARPAL TUNNEL RELEASE OPEN Right 04/29/2023 Procedure: RIGHT CARPAL TUNNEL RELEASE; Surgeon: Varinder Mohr MD; Location: Main OR; Service: Orthopedic CHOLECYSTECTOMY COLONOSCOPY 11/10/[address] [facility], normal COLONOSCOPY N/A 05/14/2023 Procedure: COLONOSCOPY with biopsy; Surgeon: Brandon Norton MD; Location: Endo; Service: Gastroenterology ESOPHAGOGASTRODUODENOSCOPY 02/24/[address] [facility], mild chronic inactive gastritis with rare h-pylori LUNG SURGERY Left early 20's PLANTAR FASCIA SURGERY US THYROID BIOPSY WITH FNA 06/08/2023 US THYROID BIOPSY WITH FNA 06/08/2023 Danny Arevalo DO ULTRASOUND Family History: Family History Problem Relation Age of Onset Arthritis Mother Diabetes Mother Heart disease Mother Heart disease Father Colon cancer Neg Hx Rectal cancer Neg Hx Social History: Social History Socioeconomic History Marital status: Single Tobacco Use Smoking status: Every Day Packs/day: 1.5 Types: Cigarettes Smokeless tobacco: Never Tobacco comments: Patient wants to quit Vaping Use Vaping Use: Former Substance and Sexual Activity Alcohol use: Never Drug use: Not Currently Types: Marijuana Comment: medical Sexual activity: Yes Partners: Male control/protection: None Social Determinants of Health Financial Resource Strain: High Risk (05/03/2023) Overall Financial Resource Strain (CARDIA) Difficulty of Paying Living Expenses: Very hard Food Insecurity: Food Insecurity Present (05/03/2023) Hunger Vital Sign Worried About Running Out of Food in the Last Year: Sometimes true Ran Out of Food in the Last Year: Sometimes true Transportation Needs: No Transportation Needs (05/03/2023) PRAPARE - Transportation Lack of Transportation (Medical): No Lack of Transportation (Non-Medical): No Physical Activity: Inactive (05/03/2023) Exercise Vital Sign Days of Exercise per Week: 0 days Minutes of Exercise per Session: 0 min Stress: Stress Concern Present (05/03/2023) [employer] - Occupational Stress Questionnaire Feeling of Stress : Very much Social Connections: Socially Isolated (05/03/2023) Social Connection and Isolation Panel [NHANES] Frequency of Communication with Friends and Family: Never Frequency of Social Gatherings with Friends and Family: Never Attends Cheondoism Services: Never Active Member of Clubs or Organizations: No Attends Club or Organization Meetings: Never Marital Status: Living with partner Housing Stability: High Risk (05/03/2023) Housing Stability Vital Sign Unable to Pay for Housing in the Last Year: Yes Number of Places Lived in the Last Year: 4 Unstable Housing in the Last Year: Yes Allergies: Allergies Allergen Reactions Adhesive Rash Mirtazapine Other (See Comments) Adhesive Tape-Silicones Hives blisters Current Medications: Current Outpatient Medications Medication Sig Dispense Refill acetaminophen (TYLENOL ER) 650 MG CR tablet Take 1 (one) tablet (650 mg total) by mouth every 8 (eight) hours as needed for pain . 30 tablet 1 cyclobenzaprine (FLEXERIL) 10 MG tablet Take 1 (one) tablet (10 mg total) by mouth 3 (three) times a day as needed for muscle spasms . 90 tablet 0 hydrOXYzine (VISTARIL) 100 MG capsule Take 1 (one) capsule (100 mg total) by mouth 2 (two) times a day . 60 capsule 1 pantoprazole (PROTONIX) 40 MG tablet Take 1 (one) tablet (40 mg total) by mouth 2 (two) times a day. 60 tablet 2 calcium-vitamin D (OS-TONEY +D) 500 mg-5 mcg (200 unit) per tablet Take 1 (one) tablet by mouth 2 (two) times a day with meals . (Patient not taking: Reported on 05/31/2023 .) 60 tablet 11 dicyclomine (BENTYL) 20 mg tablet Take 1 (one) tablet (20 mg total) by mouth 4 (four) times a day as needed . (Patient not taking: Reported on 06/14/2023 .) 120 tablet 5 meloxicam (MOBIC) 15 MG tablet Take 1 (one) tablet (15 mg total) by mouth daily . (Patient not taking: Reported on 06/14/2023 .) 30 tablet 11 ondansetron (ZOFRAN) 8 MG tablet Take 1 (one) tablet (8 mg total) by mouth every 8 (eight) hours asneeded for nausea (nausea or vomiting) . (Patient not taking: Reported on 06/14/2023 .) 20 tablet 2 potassium chloride (KLOR-CON) 20 mEq packet Take 20 (twenty) mEq by mouth daily . (Patient not taking: Reported on 07/01/2023 .) 30 packet 0 No current facility-administered medications for this visit. Physical Exam: Vitals: BP 117/77 (BP Location: Right arm, Patient Position: Sitting, BP Cuff Size: X-large Adult) Pulse (!) 102 Ht 5' 10 Wt 110.6 kg (243 lb 12.8 oz) BMI 34.98 kg/m , Body mass index is 34.98 kg/m ., Wt Readings from Last 3 Encounters: 07/08/23 110.6 kg (243 lb 12.8 oz) 07/05/23 109.7 kg (241 lb 12.8 oz) 07/01/23 110.7 kg (244 lb) General/Constitutional: , well-developed and in no distress. Pulmonary/Chest: effort normal Musculoskeletal: nomal range of motion, normal muscle mass Lab/Imaging Data: Lab Results Component Value Date WBC 6.47 04/02/2023 HGB 13.8 04/02/2023 HCT 43.6 04/02/2023 MCV 82.7 04/02/2023 PLT 369 04/02/2023 Lab Results Component Value Date GLUCOSE 97 04/02/2023 NA 139 04/02/2023 K 3.8 06/14/2023 CL 98 04/02/2023 BUN 5 (L) 04/02/2023 CREATININE 0.64 04/02/2023 Lab Results Component Value Date ALT 6 04/02/2023 AST 15 04/02/2023 ALKPHOS 55 04/02/2023 BILITOT 0.4 04/02/2023 Lab Results Component Value Date TSH 0.91 06/25/2023 Lab Results Component Value Date CALCIUM 9.7 04/02/2023 Lab Results Component Value Date LDLCALC 159 (H) 10/28/2022 CHOL 233 (H) 10/28/2022 HDL 48 10/28/2022 TRIG 129 10/28/2022 CHOLHDL 4.9 10/28/2022 Latest Reference Range & Units 10/28/22 12:09 03/31/23 12:34 04/02/23 11:11 TSH 0.27 - 4.20 mcIU/mL 1.63 1.46 0.70 Thyroid/parathyroid US 06/09/2018: RESULT: Thyroid gland is somewhat heterogeneous in echotexture. The right lobe measures approximately 6.5 x 2.1 x 2.7 cm. The left lobe measures approximately 4.2 x 1.5 x 1.3 cm. The isthmus measures approximately 2 mm. Within the right lobe is a heterogeneous large solid nodule, measuring approximately 3.9 x 3.2 x 3.1 cm. Within the left lobe is a heterogeneous hypoechoic nodule, measuring approximately 4 x 4 x 2 mm. IMPRESSION: Somewhat heterogeneous thyroid echotexture. Approximately 3.9 cm dominant heterogeneous nodule within the right lobe. Subcentimeter hypoechoic nodule within the left lobe. Continued interval surveillance is recommended. Thyroid/parathyroid US 09/12/2020: COMPARISON: Ultrasound dated June 09, 2018 RESULT: Right Lobe: 2.0 x 2.3 x 6.7 cm; homogeneous echogenicity, expected vascular flow. Left Lobe: 1.5 x 1.6 x 5.4 cm; homogeneous echogenicity, expected vascular flow. Isthmus: 0.4 cm The most suspicious thyroid nodule(s) (up to four) as below: NODULE 1: Location: Right lower pole Size: 3.0 x 2.9 x 3.9 cm, previously 3.2 x 3.1 x 3.9 cm Characteristics: Composition: Spongiform, 0 points Echogenicity: Hypoechoic, 2 points Shape: [id number]-gbft-[id number], 3 points Margin: Extra-thyroidal extension, 3 points Echogenic foci (add points for all that apply): None, 0 points Internal vascularity: absent Interval growth: Stable TI-RADS Category: TR5 ACR Recommendation: TI-RADS 5 nodule. FNA is advised. NODULE 2: Location: Left mid pole Size: 0.2 x 0.2 x 0.4 cm, previously 0.2 x 0.4 x 0.4 Characteristics: Composition: Solid or almost completely solid, 2 points Echogenicity: Hypoechoic, 2 points Shape: [id number]-bzvy, 0 points Margin: Smooth, 0 points Echogenic foci (add points for all that apply): None, 0 points Internal vascularity: absent Interval growth: Stable TI-RADS Category: TR4 ACR Recommendation: TI-RADS 4 nodule. No FNA or follow-up imaging is advised. IMPRESSION: Stable in size 3.9 cm nodule in the right lower pole as detailed in the synoptic report. This is a TR5 nodule and fine needle aspiration is advised if not already performed. Thyroid/parathyroid US 10/07/2021: COMPARISON: Ultrasound thyroid on 09/12/2020. RESULT: Right Lobe: 7.8 x 2.7 x 2.2 cm; homogeneous echogenicity, expected vascular flow. Left Lobe: 4.6 x 1.4 x 1.5 cm; homogeneous echogenicity, expected vascular flow. Isthmus: 0.3 cm The most suspicious thyroid nodule(s) (up to four) as below: NODULE 1: Location: Right inferior Size: 3.7 x 3.0 x 2.6 cm, previously 3.9 x 3.1 x 2.9 cm. Characteristics: Composition: Solid or almost completely solid, 2 points Echogenicity: Isoechoic, 1 point Shape: [id number]-znvt-[id number], 0 points Margin: Smooth, 0 points Echogenic foci (add points for all that apply): None, 0 points Internal vascularity: present Interval growth: No significant growth given differences in technique TI-RADS Category: TR3 ACR Recommendation: TI-RADS 3 nodule. FNA is recommended for nodules measuring greater than 2.5cm. IMPRESSION: Thyroid nodule(s) is/are present. Fine needle aspiration is recommended for one or more nodules as detailed in the synoptic report. Thyroid US 04/28/2023: COMPARISON: None TECHNIQUE: Ultrasound examination was performed in transverse and sagittal planes through the thyroid gland. FINDINGS: The right lobe of the thyroid measures 5.8 x 2.5 x 2.7 cm. The left lobe of the thyroid measures 5.2 x 1.4 x 1.3 cm. The isthmus measures 0.3 cm. The thyroid appears homogeneous with normal vascularity. The following lesions are identified and scored: Lesion 1: Right lower pole, measuring 3.7 x 2.6 x 2.5 cm TIRADS 3 Composition: Predominately solid Echogenicity: Mild isoechoic Shape: Wider than tall Margin: Smooth Echogenic foci: None IMPRESSION: Right TI-RADS 3 nodule, 3.7 cm. No prior comparison to assess for stability. Per TI-RADS, FNA is recommended if not already obtained. Pathology 06/08/2023: A. Thyroid, Right, fine needle aspiration (FNA) biopsy: ATYPIA OF UNDETERMINED SIGNIFICANCE ([place] Category III) Note: There is focal cytologic atypia. ThyGeNEXT and ThyraMIR Result Summary: Right Thyroid ThyGeNEXT: [id number] ThyraMIR: Positive Risk of malignancy: 95% 06/25/2023: cortisol 10.1, TSH 0.91, FT4 1 Assessment and plan: Ms. Dykes is a 38 y.o. female with hx of bipolar disorder, PTSD, personality disorder, schizoaffective schizophrenia, sleep apnea, cholecystectomy. Thyroid nodule: -The 3.7 cm R thyroid nodule seemed to be stable over years, and FNA was benign in 2019, but most recent FNA showed AUS and molecular testing was positive with 95% risk of malignancy. -Will get US neck to assess for suspicious lymph nodes, and placed referral to surgery. If this is a 3.7 cm cancer, then I would be more inclined towards total thyroidectomy followed by BUTTS since it will be close to the 4 cm threshold (either lobectomy followed by completion on confirming the diagnosis, vs total thyroidectomy from the beginning). Thyroidectomy ?may help with her dysphagia. TFTs were normal in 06/2023. Cortisol was borderline at 10. Will get ACTH stim test to rule AI out. Return in about 3 months (around 10/01/2023) for thyroid nodule f/u. Time spent reviewing chart, during the encounter, putting orders and coordinating care on the encounter day is 25 minutes. Mo Kaur MD Endocrinology documented in this [id number] History of Present illness Narrative* Jennifer Daniels PTA - 06/25/2023 8:30 AM EST [facility] OUTPATIENT REHABILITATION DAILY TREATMENT NOTE Today's Date 06/25/2023 Patient Name: Damaris Dykes Date of : 1985 Current Visit #: [id number] Authorized Visits: [id number] Case Name: Cervicalgia; Sprain of ligament of lumbosacral joint History: Pre-Treatment Pain Scale: 7 Symptoms: stabilized Functional Diagnosis: 1. Sprain of ligament of lumbosacral joint, initial encounter Clinical Information: Subjective: She hasn't seen any progress with the stretches Objective good understanding of proper positions Treatments: Physical Therapy Exercise Log - 06/25/23 0854 OTHER Precautions/Contraindications chronic pain: mobility exercises progress to strengthening if tolerated, no forceful gripping due to carpal tunnel surgery Notes visit 4: 8:15-8:55 Therapeutic Exercise (90300) Intervention Seated Cervical Rotation AROM - 1 x daily - 1-3 sets - 10 reps - 3sec hol Parameters Seated Scapular Retraction - 1-2 x daily - 10 reps - 3-5 hold Intervention Seated Cervical Retraction - 1-2 x daily - 1 sets - 10 reps - 5 hold - Parameters Seated Shoulder Rolls - 1 x daily - 7 x weekly - 3 sets - 10 reps - Intervention Seated Trunk Rotation Stretch - 1-3 x daily - 10 reps - 3-5 sec hold Parameters Seated Flexion Stretch - 1-3 x daily - 10 reps - 3-5sec hold Intervention Seated Thoracic Lumbar Extension - 1-3 x daily - 1 sets - 10 reps - 3-5 sec hold Parameters Seated B ER yellow miniband 5''x10 Intervention Sidelying open book 10''x3 Hooklying LTR 15''x3 each Parameters Prone prop on elbows - 1 min Intervention Supine Add, Abd isometric 5''x10 Intervention PNE and graded exposure Parameters Access Code: [email or web address] URL: [email or web address] Date: 05/31/2023 Prepared by: Marilee Montalvo Exercises - Seated Cervical Rotation AROM - 1 x daily - 1-3 sets - 10 reps - 3sec hold -Seated Scapular Retraction - 1-2 x daily - 10 reps - 3-5 hold - Seated Cervical Retraction - 1-2 x daily - 1 sets - 10 reps - 5 hold - Seated Shoulder Rolls - 1 x daily - 7 x weekly - 3 sets - 10 reps - Seated Trunk Rotation Stretch - 1-3 x daily - 10 reps - 3-5 sec hold - Seated Flexion Stretch - 1-3 x daily - 10 reps - 3-5sec hold - Seated Thoracic Lumbar Extension - 1-3 x daily - 1 sets - 10 reps - 3-5 sec hold PT Treatment Times Therex Total Time 40 Direct Treatment Time 40 Total Treatment Time 40 Goals: Physical Therapy Ortho Goals: Patient will safely, correctly and independently demonstrate the ability to perform a progressive HEP to achieve maximal rehabilitation potential and prevent this condition from recurring. 2 weeks Patient will improve pain level 2 points from 5-9/10. 4 weeks Patient will demonstrate increased back muscle control and endurance to sit / stand / drive 30 mins. 4 weeks Patient will demonstrate increased endurance of cervical muscles to maintain neck posture for long time such as sitting. 4 weeks Patient will improve FOTO score to at least Lumbar 53/35 and 62/52 to show MDC/MCII and expected functional outcome. 4 weeks Patient Education: Quality of movement with patient demonstrated understanding. Post-Treatment Pain Scale: 7 Assessment: Patient had an expected response to treatment. Skilled Intervention demonstrated by modifications of treatment per exercise log including increased load and safety interventions per exercise log. Progress towards goals as expected. Plan for Next Visit: Treatment Visit with focus on pain control Jennifer Daniels PTA STATE LICENSE, [id number] documented in this [id number] Instructions* Patient Instructions* Mo Kaur MD - 06/23/2023 10:25 AM EST Please have labs at 8 am. documented in this [id number] History of Present illness Narrative* Mo Kaur MD - 06/23/2023 9:00 AM EST Reason for visit/chief complaint: pt has hx thyroid nodules and had FNA last week that came back abnormal with atypia, molecular testing is pending Date: 06/23/2023 Referring Provider: Olga Dhillon CNP Primary Care Provider: Olga Dhillon CNP HPI: Ms. Dykes is a 38 y.o. female with hx of bipolar disorder, PTSD, personality disorder, schizoaffective schizophrenia, sleep apnea, cholecystectomy. She has been having issues with difficulty swallowing solids/liquids since 2018 (present all the time, stable, mainly ?gets stuck in chest then builds up, ?sometimes gets stuck at neck level; patientis not very clear on that). At that time, she had thyroid US showing a big 3.9 cm nodule on R side (reported as heterogenous) and small 4 mm nodule on L side. FNA of the R nodule was done in 09/2018 which came back benign. Repeat US since that time have shown a stable nodule. She recalls that she saw a surgeon for ?possible thyroidectomy, but that didn't happen and she doesn't remember the details. Thyroid US in 04/2023 reported R 3.7 cm TR3 nodule (as below). TSH has been normal. FNA was done on 06/08/2023; results showed AUS, and seems that it was sent for molecular testing per notes but results are not back yet. No choking on food or voice changes, but has been having pain on R side since she had the most recent FNA on 06/08/2023. She feels like choking when she lies on her back. Has nausea/vomiting/diarrhea. Appetite is good but she can't eat well because of dysphagia and she feels full soon. Gets abdominal pain on eating. Has dizziness. Has extreme fatigue, and weakness. She lost ~175 lb since 2019, but weight has been stable since then. Risk factors: -Hx of autoimmune diseases: no -Family hx of thyroid disease/cancer: no -Hx of high risk/interfering medications: no biotin/steroids/ control -Hx of head/neck irradiation: no -Smoking: yes Review of Systems: as per HPI Medical History: Past Medical History: Diagnosis Date Abdominal pain Anxiety and depression Bipolar 1 disorder (HCC) Personality disorder in adult (HCC) PTSD (post-traumatic stress disorder) Schizo affective schizophrenia (HCC) Sleep apnea Surgical History: Past Surgical History: Procedure Laterality Date CARPAL TUNNEL RELEASE OPEN Right 04/29/2023 Procedure: RIGHT CARPAL TUNNEL RELEASE; Surgeon: Varinder Mohr MD; Location: Main OR; Service: Orthopedic CHOLECYSTECTOMY COLONOSCOPY 11/10/[address] [facility], normal COLONOSCOPY N/A 05/14/2023 Procedure: COLONOSCOPY with biopsy; Surgeon: Brandon Norton MD; Location: Endo; Service: Gastroenterology ESOPHAGOGASTRODUODENOSCOPY 02/24/[address] [facility], mild chronic inactive gastritis with rare h-pylori LUNG SURGERY Left early PLANTAR FASCIA SURGERY US THYROID BIOPSY WITH FNA 06/08/2023 US THYROID BIOPSY WITH FNA 06/08/2023 Danny Arevalo DO ULTRASOUND Family History: Family History Problem Relation Age of Onset Arthritis Mother Diabetes Mother Heart disease Mother Heart disease Father Colon cancer Neg Hx Rectal cancer Neg Hx Social History: Social History Socioeconomic History Marital status: Single Tobacco Use Smoking status: Every Day Packs/day: 1.5 Types: Cigarettes Smokeless tobacco: Never Tobacco comments: Patient wants to quit Vaping Use Vaping Use: Former Substance and Sexual Activity Alcohol use: Never Drug use: Yes Types: Marijuana Comment: medical Sexual activity: Yes Partners: Male control/protection: None Social Determinants of Health Financial Resource Strain: High Risk (05/03/2023) Overall Financial Resource Strain (CARDIA) Difficulty of Paying Living Expenses: Very hard Food Insecurity: Food Insecurity Present (05/03/2023) Hunger Vital Sign Worried About Running Out of Food in the Last Year: Sometimes true Ran Out of Food in the Last Year: Sometimes true Transportation Needs: No Transportation Needs (05/03/2023) PRAPARE - Transportation Lack of Transportation (Medical): No Lack of Transportation (Non-Medical): No Physical Activity: Inactive (05/03/2023) Exercise Vital Sign Days of Exercise per Week: 0 days Minutes of Exercise per Session: 0 min Stress: Stress Concern Present (05/03/2023) [employer] - Occupational Stress Questionnaire Feeling of Stress : Very much Social Connections: Socially Isolated (05/03/2023) Social Connection and Isolation Panel [NHANES] Frequency of Communication with Friends and Family: Never Frequency of Social Gatherings with Friends and Family: Never Attends Cheondoism Services: Never Active Member of Clubs or Organizations: No Attends Club or Organization Meetings: Never Marital Status: Living with partner Housing Stability: High Risk (05/03/2023) Housing Stability Vital Sign Unable to Pay for Housing in the Last Year: Yes Number of Places Lived in the Last Year: 4 Unstable Housing in the Last Year: Yes Allergies: Allergies Allergen Reactions Adhesive Rash Mirtazapine Other (See Comments) Adhesive Tape-Silicones Hives blisters Current Medications: Current Outpatient Medications Medication Sig Dispense Refill acetaminophen (TYLENOL ER) 650 MG CR tablet Take 1 (one) tablet (650 mg total) by mouth every 8 (eight) hours as needed for pain . 30 tablet 1 cyclobenzaprine (FLEXERIL) 5 MG tablet Take 1 (one) tablet (5 mg total) by mouth 3 (three) times a day as needed for muscle spasms . 30 tablet 1 hydrOXYzine (VISTARIL) 50 MG capsule Take 1 (one) capsule (50 mg total) by mouth 2 (two) times a day . 60 capsule 0 calcium-vitamin D (OS-TONEY +D) 500 mg-5 mcg (200 unit) per tablet Take 1 (one) tablet by mouth 2 (two) times a day with meals . (Patient not taking: Reported on 05/31/2023 .) 60 tablet 11 dicyclomine (BENTYL) 20 mg tablet Take 1 (one) tablet (20 mg total) by mouth 4 (four) times a day as needed . (Patient not taking: Reported on 06/14/2023 .) 120 tablet 5 meloxicam (MOBIC) 15 MG tablet Take 1 (one) tablet (15 mg total) by mouth daily . (Patient not taking: Reported on 06/14/2023 .) 30 tablet 11 ondansetron (ZOFRAN) 8 MG tablet Take 1 (one) tablet (8 mg total) by mouth every 8 (eight) hours asneeded for nausea (nausea or vomiting) . (Patient not taking: Reported on 06/14/2023 .) 20 tablet 2 pantoprazole (PROTONIX) 40 MG tablet Take 1 (one) tablet (40 mg total) by mouth 2 (two) times a day. (Patient not taking: Reported on 06/14/2023 .) 60 tablet 2 potassium chloride (KLOR-CON) 20 mEq packet Take 20 (twenty) mEq by mouth daily . (Patient taking differently: Take 20 (twenty) mEq by mouth 2 (two) times a day as needed .) 30 packet 0 No current facility-administered medications for this visit. Physical Exam: Vitals: BP 113/82 (BP Location: Right arm, Patient Position: Sitting, BP Cuff Size: X-large Adult) Pulse 92 Ht 5' 10 Wt 109.4 kg (241 lb 3.2 oz) SpO2 99% BMI 34.61 kg/m , Body mass index is 34.61 kg/m ., Wt Readings from Last 3 Encounters: 06/23/23 109.4 kg (241 lb 3.2 oz) 06/14/23 110.5 kg (243 lb 9.6 oz) 06/01/23 112.7 kg (248 lb 8 oz) General/Constitutional: , well-developed and in no distress. Head: atrautmatic, no facial leasions observed Eyes: no lid retraction (stare), no proptosis Neck: possible R thyroid nodule Cardiovascular: regular rhythm Pulmonary/Chest: effort normal Abdominal: soft, no tenderness Musculoskeletal: nomal range of motion, normal muscle mass Neurological: alert and oriented, no focal deficits, no tremors, DTRs normal Skin: warm and moist, no rash noted Psychiatric: emotional Lab/Imaging Data: Lab Results Component Value Date WBC 6.47 04/02/2023 HGB 13.8 04/02/2023 HCT 43.6 04/02/2023 MCV 82.7 04/02/2023 PLT 369 04/02/2023 Lab Results Component Value Date GLUCOSE 97 04/02/2023 NA 139 04/02/2023 K 3.8 06/14/2023 CL 98 04/02/2023 BUN 5 (L) 04/02/2023 CREATININE 0.64 04/02/2023 Lab Results Component Value Date ALT 6 04/02/2023 AST 15 04/02/2023 ALKPHOS 55 04/02/2023 BILITOT 0.4 04/02/2023 Lab Results Component Value Date TSH 0.70 04/02/2023 Lab Results Component Value Date CALCIUM 9.7 04/02/2023 Lab Results Component Value Date LDLCALC 159 (H) 10/28/2022 CHOL 233 (H) 10/28/2022 HDL 48 10/28/2022 TRIG 129 10/28/2022 CHOLHDL 4.9 10/28/2022 Latest Reference Range & Units 10/28/22 12:09 03/31/23 12:34 04/02/23 11:11 TSH 0.27 - 4.20 mcIU/mL 1.63 1.46 0.70 Thyroid/parathyroid US 06/09/2018: RESULT: Thyroid gland is somewhat heterogeneous in echotexture. The right lobe measures approximately 6.5 x 2.1 x 2.7 cm. The left lobe measures approximately 4.2 x 1.5 x 1.3 cm. The isthmus measures approximately 2 mm. Within the right lobe is a heterogeneous large solid nodule, measuring approximately 3.9 x 3.2 x 3.1 cm. Within the left lobe is a heterogeneous hypoechoic nodule, measuring approximately 4 x 4 x 2 mm. IMPRESSION: Somewhat heterogeneous thyroid echotexture. Approximately 3.9 cm dominant heterogeneous nodule within the right lobe. Subcentimeter hypoechoic nodule within the left lobe. Continued interval surveillance is recommended. Thyroid/parathyroid US 09/12/2020: COMPARISON: Ultrasound dated June 09, 2018 RESULT: Right Lobe: 2.0 x 2.3 x 6.7 cm; homogeneous echogenicity, expected vascular flow. Left Lobe: 1.5 x 1.6 x 5.4 cm; homogeneous echogenicity, expected vascular flow. Isthmus: 0.4 cm The most suspicious thyroid nodule(s) (up to four) as below: NODULE 1: Location: Right lower pole Size: 3.0 x 2.9 x 3.9 cm, previously 3.2 x 3.1 x 3.9 cm Characteristics: Composition: Spongiform, 0 points Echogenicity: Hypoechoic, 2 points Shape: [id number]-[id number], 3 points Margin: Extra-thyroidal extension, 3 points Echogenic foci (add points for all that apply): None, 0 points Internal vascularity: absent Interval growth: Stable TI-RADS Category: TR5 ACR Recommendation: TI-RADS 5 nodule. FNA is advised. NODULE 2: Location: Left mid pole Size: 0.2 x 0.2 x 0.4 cm, previously 0.2 x 0.4 x 0.4 Characteristics: Composition: Solid or almost completely solid, 2 points Echogenicity: Hypoechoic, 2 points Shape: Syyzn-evye-lkvn, 0 points Margin: Smooth, 0 points Echogenic foci (add points for all that apply): None, 0 points Internal vascularity: absent Interval growth: Stable TI-RADS Category: TR4 ACR Recommendation: TI-RADS 4 nodule. No FNA or follow-up imaging is advised. IMPRESSION: Stable in size 3.9 cm nodule in the right lower pole as detailed in the synoptic report. This is a TR5 nodule and fine needle aspiration is advised if not already performed. Thyroid/parathyroid US 10/07/2021: COMPARISON: Ultrasound thyroid on 09/12/2020. RESULT: Right Lobe: 7.8 x 2.7 x 2.2 cm; homogeneous echogenicity, expected vascular flow. Left Lobe: 4.6 x 1.4 x 1.5 cm; homogeneous echogenicity, expected vascular flow. Isthmus: 0.3 cm The most suspicious thyroid nodule(s) (up to four) as below: NODULE 1: Location: Right inferior Size: 3.7 x 3.0 x 2.6 cm, previously 3.9 x 3.1 x 2.9 cm. Characteristics: Composition: Solid or almost completely solid, 2 points Echogenicity: Isoechoic, 1 point Shape: Gxlcs-xyew-ywvk, 0 points Margin: Smooth, 0 points Echogenic foci (add points for all that apply): None, 0 points Internal vascularity: present Interval growth: No significant growth given differences in technique TI-RADS Category: TR3 ACR Recommendation: TI-RADS 3 nodule. FNA is recommended for nodules measuring greater than 2.5cm. IMPRESSION: Thyroid nodule(s) is/are present. Fine needle aspiration is recommended for one or more nodules as detailed in the synoptic report. Thyroid US 04/28/2023: COMPARISON: None TECHNIQUE: Ultrasound examination was performed in transverse and sagittal planes through the thyroid gland. FINDINGS: The right lobe of the thyroid measures 5.8 x 2.5 x 2.7 cm. The left lobe of the thyroid measures 5.2 x 1.4 x 1.3 cm. The isthmus measures 0.3 cm. The thyroid appears homogeneous with normal vascularity. The following lesions are identified and scored: Lesion 1: Right lower pole, measuring 3.7 x 2.6 x 2.5 cm TIRADS 3 Composition: Predominately solid Echogenicity: Mild isoechoic Shape: Wider than tall Margin: Smooth Echogenic foci: None IMPRESSION: Right TI-RADS 3 nodule, 3.7 cm. No prior comparison to assess for stability. Per TI-RADS, FNA is recommended if not already obtained. Pathology 06/08/2023: A. Thyroid, Right, fine needle aspiration (FNA) biopsy: ATYPIA OF UNDETERMINED SIGNIFICANCE ([place] Category III) Note: There is focal cytologic atypia. Assessment and plan: Ms. Dykes is a 38 y.o. female with hx of bipolar disorder, PTSD, personality disorder, schizoaffective schizophrenia, sleep apnea, cholecystectomy. Thyroid nodule: -The R thyroid nodule seems to be stable over years, and FNA was benign in 2019; these are reassuring features, but most recent FNA showed AUS and molecular testing was not resulted yet; will f/u on that. -Not sure if nodule is contributing to her ?dysphagia (I have low suspicion), but swallowing study can be considered for further evaluation. She had normal spirometry/flow volume loop in 2020 in [facility]. Further evaluation by ENT can be considered. Given her other symptoms, will get am cortisol, and repeat TSH along with FT4. Return in about 1 year (around 06/23/2024) for Thyroid nodule f/u. Time spent reviewing chart, during the encounter, putting orders and coordinating care on the encounter day is 50 minutes. Mo Kaur MD Endocrinology documented in this [id number] History of Present illness Narrative* Dean Burt PTA - 06/14/2023 8:30 AM EST [facility] OUTPATIENT REHABILITATION DAILY TREATMENT NOTE Today's Date 06/14/2023 Patient Name: Damaris Dykes Date of : 1985 Current Visit #: 4 Authorized Visits: 199 Case Name: Cervicalgia; Sprain of ligament of lumbosacral joint History: Pre-Treatment Pain Scale: 3 Symptoms: stabilized Functional Diagnosis: 1. Sprain of ligament of lumbosacral joint, initial encounter Clinical Information: Subjective: Pt reports increased pain over entire body today, states increased pain with getting dressed and just rolling over Pt repeated feeling unheard and like she wasn't worth treatment Objective Reviewed seeking counseling and benefits of movement and ex as tolerated Treatments: Physical Therapy Exercise Log - 06/14/23 0834 OTHER Precautions/Contraindications chronic pain: mobility exercises progress to strengthening if tolerated, no forceful gripping due to carpal tunnel surgery Notes Visit 3 [phone] Therapeutic Exercise (32146) Intervention Seated Cervical Rotation AROM - 1 x daily - 1-3 sets - 10 reps - 3sec hol Parameters Seated Scapular Retraction - 1-2 x daily - 10 reps - 3-5 hold Intervention Seated Cervical Retraction - 1-2 x daily - 1 sets - 10 reps - 5 hold - Parameters Seated Shoulder Rolls - 1 x daily - 7 x weekly - 3 sets - 10 reps - Intervention Seated Trunk Rotation Stretch - 1-3 x daily - 10 reps - 3-5 sec hold Parameters Seated Flexion Stretch - 1-3 x daily - 10 reps - 3-5sec hold Intervention Seated Thoracic Lumbar Extension - 1-3 x daily - 1 sets - 10 reps - 3-5 sec hold Parameters Seated B ER yellow miniband 5''x10 Intervention Sidelying open book 10''x3 Hooklying LTR 15''x3 each Parameters Prone prop on elbows - 1 min Intervention Supine Add, Abd isometric 5''x10 Intervention PNE and graded exposure Parameters Access Code: [email or web address] URL: [email or web address] Date: 05/31/2023 Prepared by: Marilee Montalvo Exercises - Seated Cervical Rotation AROM - 1 x daily - 1-3 sets - 10 reps - 3sec hold -Seated Scapular Retraction - 1-2 x daily - 10 reps - 3-5 hold - Seated Cervical Retraction - 1-2 x daily - 1 sets - 10 reps - 5 hold - Seated Shoulder Rolls - 1 x daily - 7 x weekly - 3 sets - 10 reps - Seated Trunk Rotation Stretch - 1-3 x daily - 10 reps - 3-5 sec hold - Seated Flexion Stretch - 1-3 x daily - 10 reps - 3-5sec hold - Seated Thoracic Lumbar Extension - 1-3 x daily - 1 sets - 10 reps - 3-5 sec hold PT Treatment Times Therex Total Time 36 Direct Treatment Time 36 Total Treatment Time 36 Goals: Physical Therapy Ortho Goals: Patient will safely, correctly and independently demonstrate the ability to perform a progressive HEP to achieve maximal rehabilitation potential and prevent this condition from recurring. 2 weeks Patient will improve pain level 2 points from 5-9/10. 4 weeks Patient will demonstrate increased back muscle control and endurance to sit / stand / drive 30 mins. 4 weeks Patient will demonstrate increased endurance of cervical muscles to maintain neck posture for long time such as sitting. 4 weeks Patient will improve FOTO score to at least Lumbar 53/35 and 62/52 to show MDC/MCII and expected functional outcome. 4 weeks Patient Education: Verbal HEP with patient verbalized understanding. Post-Treatment Pain Scale: 3 Assessment: Patient had an expected response to treatment. Skilled Intervention demonstrated by modifications of treatment per exercise log including assessment of patient's response and safety interventions per exercise log. Progress towards goals as expected. Plan for Next Visit: Treatment Visit with focus on progressing Dean Burt PTA STATE LICENSE, [id number] documented in this [id number] History of Present illness Narrative* William Monroe PTA - 06/10/2023 8:30 AM EST [facility] OUTPATIENT REHABILITATION DAILY TREATMENT NOTE Today's Date 06/10/2023 Patient Name: Damaris Dykes Date of : 1985 Current Visit #: 3 Authorized Visits: 199 Case Name: Cervicalgia; Sprain of ligament of lumbosacral joint History: Pre-Treatment Pain Scale: 6 Symptoms: stabilized Functional Diagnosis: 1. Sprain of ligament of lumbosacral joint, initial encounter Clinical Information: Subjective: Pt reports having a lot of pain throughout whole body today with neck hurting more thanlower back. Pt reports pain in neck and shoulders from biopsy, wrist pain and knee pain today. Objective Treatments: Physical Therapy Exercise Log - 06/10/23 0831 OTHER Precautions/Contraindications chronic pain: mobility exercises progress to strengthening if tolerated, no forceful gripping due to carpal tunnel surgery Notes Visit 2: 8:30 - 9:10 Therapeutic Exercise (25032) Intervention Seated Cervical Rotation AROM - 1 x daily - 1-3 sets - 10 reps - 3sec hol Parameters Seated Scapular Retraction - 1-2 x daily - 10 reps - 3-5 hold Intervention Seated Cervical Retraction - 1-2 x daily - 1 sets - 10 reps - 5 hold - Parameters Seated Shoulder Rolls - 1 x daily - 7 x weekly - 3 sets - 10 reps - Intervention Seated Trunk Rotation Stretch - 1-3 x daily - 10 reps - 3-5 sec hold Parameters Seated Flexion Stretch - 1-3 x daily - 10 reps - 3-5sec hold Intervention Seated Thoracic Lumbar Extension - 1-3 x daily - 1 sets - 10 reps - 3-5 sec hold Parameters Seated B ER yellow miniband 5''x10 Intervention Sidelying open book 10''x3 Hooklying LTR 15''x3 each Parameters Prone prop on elbows - 1 min Intervention PNE and graded exposure Parameters Access Code: [email or web address] URL: [email or web address] Date: 05/31/2023 Prepared by: Marilee Montalvo Exercises - Seated Cervical Rotation AROM - 1 x daily - 1-3 sets - 10 reps - 3sec hold -Seated Scapular Retraction - 1-2 x daily - 10 reps - 3-5 hold - Seated Cervical Retraction - 1-2 x daily - 1 sets - 10 reps - 5 hold - Seated Shoulder Rolls - 1 x daily - 7 x weekly - 3 sets - 10 reps - Seated Trunk Rotation Stretch - 1-3 x daily - 10 reps - 3-5 sec hold - Seated Flexion Stretch - 1-3 x daily - 10 reps - 3-5sec hold - Seated Thoracic Lumbar Extension - 1-3 x daily - 1 sets - 10 reps - 3-5 sec hold PT Treatment Times Therex Total Time 40 Direct Treatment Time 40 Total Treatment Time 40 Goals: Physical Therapy Ortho Goals: Patient will safely, correctly and independently demonstrate the ability to perform a progressive HEP to achieve maximal rehabilitation potential and prevent this condition from recurring. 2 weeks Patient will improve pain level 2 points from 5-9/10. 4 weeks Patient will demonstrate increased back muscle control and endurance to sit / stand / drive 30 mins. 4 weeks Patient will demonstrate increased endurance of cervical muscles to maintain neck posture for long time such as sitting. 4 weeks Patient will improve FOTO score to at least Lumbar 53/35 and 62/52 to show MDC/MCII and expected functional outcome. 4 weeks Patient Education: Quality of movement with patient demonstrated understanding. Post-Treatment Pain Scale: 6 Assessment: Patient had an expected response to treatment. Skilled Intervention demonstrated by modifications of treatment per exercise log including increased load and safety interventions per exercise log. Progress towards goals as expected. Plan for Next Visit: Treatment Visit with focus on pain relief and stretching William Monroe PTA STATE LICENSE, [id number] documented in this [id number] History of Present illness Narrative* Dean Burt PTA - 06/03/2023 8:30 AM EDT [facility] OUTPATIENT REHABILITATION DAILY TREATMENT NOTE Today's Date 06/03/2023 Patient Name: Damaris Dykes Date of : 1985 Current Visit #: 2 Authorized Visits: Case Name: Cervicalgia; Sprain of ligament of lumbosacral joint History: Pre-Treatment Pain Scale: 4 Symptoms: stabilized Functional Diagnosis: 1. Sprain of ligament of lumbosacral joint, subsequent encounter Clinical Information: Subjective: Pt reports lower pain than avg, states she got a new bed and slept better than she has in weeks. Some increased soreness after IE Objective Treatments: Physical Therapy Exercise Log - 06/03/23 0839 OTHER Precautions/Contraindications chronic pain: mobility exercises progress to strengthening if tolerated, no forceful gripping due to carpal tunnel surgery Notes [phone] Therapeutic Exercise (39214) Intervention Seated Cervical Rotation AROM - 1 x daily - 1-3 sets - 10 reps - 3sec hol Parameters Seated Scapular Retraction - 1-2 x daily - 10 reps - 3-5 hold Intervention Seated Cervical Retraction - 1-2 x daily - 1 sets - 10 reps - 5 hold - Parameters Seated Shoulder Rolls - 1 x daily - 7 x weekly - 3 sets - 10 reps - Intervention Seated Trunk Rotation Stretch - 1-3 x daily - 10 reps - 3-5 sec hold Parameters Seated Flexion Stretch - 1-3 x daily - 10 reps - 3-5sec hold Intervention Seated Thoracic Lumbar Extension - 1-3 x daily - 1 sets - 10 reps - 3-5 sec hold Parameters Seated B ER yellow miniband 5''x10 Intervention Sidelying open book 10''x3 Hooklying LTR 15''x3 each Intervention PNE and graded exposure Parameters Access Code: [email or web address] URL: [email or web address] Date: 05/31/2023 Prepared by: Marilee Montalvo Exercises - Seated Cervical Rotation AROM - 1 x daily - 1-3 sets - 10 reps - 3sec hold -Seated Scapular Retraction - 1-2 x daily - 10 reps - 3-5 hold - Seated Cervical Retraction - 1-2 x daily - 1 sets - 10 reps - 5 hold - Seated Shoulder Rolls - 1 x daily - 7 x weekly - 3 sets - 10 reps - Seated Trunk Rotation Stretch - 1-3 x daily - 10 reps - 3-5 sec hold - Seated Flexion Stretch - 1-3 x daily - 10 reps - 3-5sec hold - Seated Thoracic Lumbar Extension - 1-3 x daily - 1 sets - 10 reps - 3-5 sec hold PT Treatment Times Therex Total Time 27 Direct Treatment Time 27 Total Treatment Time 27 Goals: Physical Therapy Ortho Goals: Patient will safely, correctly and independently demonstrate the ability to perform a progressive HEP to achieve maximal rehabilitation potential and prevent this condition from recurring. 2 weeks Patient will improve pain level 2 points from 5-9/10. 4 weeks Patient will demonstrate increased back muscle control and endurance to sit / stand / drive 30 mins. 4 weeks Patient will demonstrate increased endurance of cervical muscles to maintain neck posture for long time such as sitting. 4 weeks Patient will improve FOTO score to at least Lumbar 53/35 and 62/52 to show MDC/MCII and expected functional outcome. 4 weeks Patient Education: Verbal HEP with patient verbalized understanding. Post-Treatment Pain Scale: 4 Assessment: Patient had an expected response to treatment. Skilled Intervention demonstrated by modifications of treatment per exercise log including assessment of patient's response and safety interventions per exercise log. Progress towards goals as expected. Plan for Next Visit: Treatment Visit with focus on progressing as tolerated Dean Burt PTA STATE LICENSE, [id number] documented in this [id number] History of Present illness Narrative* Varinder Mohr MD - 06/01/2023 10:21 AM EDT [facility] [address] ([address]) [facility] [address] [facility] [id number] Damaris Dykes is a 38 y.o. female being seen today, 06/01/23, No chief complaint on file. [chief complaint] status post carpal tunnel release HPI Dictation: Patient seen routine follow-up she had 2 retained sutures which were removed otherwise doing well [hpi] Physical Exam Dictation: [PE] wound healed nicely Assessment and Plan Dictation: [AP] is her hand as pain allows return. I have reviewed all relevant histories, medications, allergies, and problem list items with Damaris Dykes during this visit. Review of Systems Constitutional: Negative for chills and fever. HENT: Negative for congestion. Respiratory: Negative for shortness of breath. Cardiovascular: Negative for chest pain. Gastrointestinal: Negative for diarrhea, nausea and vomiting. Neurological: Negative for headaches. Psychiatric/Behavioral: Negative for behavioral problems. There were no vitals taken for this visit. Imaging: No results found. 1. Bilateral carpal tunnel syndrome Return if symptoms worsen or fail to improve. Varinder Mohr MD documented in this [id number] History of Present illness Narrative* Varinder Mohr MD - 05/12/2023 10:36 AM EDT [facility] [address]) [facility] [address] [facility] [phone] Damaris Dykes is a 38 y.o. female being seen today, 05/12/23, No chief complaint on file. [chief complaint] status post carpal tunnel release HPI Dictation: Patient seen first postop visit she complains of some numbness around the surgical scar and some tenderness as expected [hpi] Physical Exam Dictation: [PE] is healing nicely sutures removed Assessment and Plan Dictation: [AP] return in 2 weeks for reevaluation advise active range of motion of the fingers I have reviewed all relevant histories, medications, allergies, and problem list items with Damaris Dykes during this visit. Review of Systems Constitutional: Negative for chills and fever. HENT: Negative for congestion. Respiratory: Negative for shortness of breath. Cardiovascular: Negative for chest pain. Gastrointestinal: Negative for diarrhea, nausea and vomiting. Neurological: Negative for headaches. Psychiatric/Behavioral: Negative for behavioral problems. LMP 04/21/2023 (Approximate) Imaging: No results found. 1. Bilateral carpal tunnel syndrome Return in about 2 weeks (around 05/26/2023). Varinder Mohr MD documented in this [id number] History of Present illness Narrative* Varinder Mohr MD - 04/27/2023 10:54 AM EDT [facility] [address] ([address]) [facility] [address] [facility] [id number] Damaris Dykes is a 38 y.o. female being seen today, 04/27/23, Chief Complaint Patient presents with Lower Back - Pain [chief complaint] neck pain interscapular plain lower back pain pain numbness tingling both hands HPI Dictation: Rob had chronic lower back pain for several years over the last year she developed increased interscapular posterior cervical pain with x- rays showing cervical disc degeneration with loss of normal cervical lordotic curvature and degenerative disease of the lumbar spine particularL5-S1 with mild degeneration throughout the thoracic areas as well in addition she has had chronic pain numbness tingling of her hands with previous EMG done at the [facility] report was reviewed showing bilateral carpal tunnel syndrome she is right-hand dominant both equally affected should be noted she had been on Voltaren with limited response [hpi] Physical Exam Dictation: [PE] positive Phalen's Tinel's of both hands increased pain with cervical extension negative Spurling's increased pain with all lumbar range of motion paraspinal spasm no radicular symptoms lower extremities Assessment and Plan Dictation: [AP] plan I did recommend change her from Voltaren to meloxicam physical therapy in both her neck and lower back and carpal tunnel surgery starting with her right hand which will be arranged I will see her back once PT is completed as well 1 if her back continues to be symptomatic we will obtain MRIs of both cervical and lumbar spines I have reviewed all relevant histories, medications, allergies, and problem list items with Damaris Dykes during this visit. Review of Systems Constitutional: Negative for chills and fever. HENT: Negative for congestion. Respiratory: Negative for shortness of breath. Cardiovascular: Negative for chest pain. Gastrointestinal: Negative for diarrhea, nausea and vomiting. Neurological: Negative for headaches. Psychiatric/Behavioral: Negative for behavioral problems. Ht 5' 7 Wt 116.6 kg (257 lb) BMI 40.25 kg/m Imaging: No results found. 1. Lumbar degenerative disc disease 2. Radiculopathy, unspecified spinal region Ambulatory referral to Orthopedics 3. DDD (degenerative disc disease), cervical 4. Bilateral carpal tunnel syndrome Return for postop evaluation after scheduled surgery. Varinder Mohr MD documented in this [id number] History of Present illness Narrative* Lindsay Sherman, [facility] - 04/08/2023 11:21 AM EDT Damaris Dykes 37 y.o. 1985 female Reason for Consult: Chronic diarrhea, abdominal pain, nausea and weight loss HPI: 37-year-old female with history of abdominal pain, anxiety, depression, bipolar, schizoaffective schizophrenia, PTSD referred for chronic diarrhea, abdominal pain, nausea and weight loss. 2 years with ongoing symptoms has had 2 EGDs, in 2020 EGD normal with path revealing mild chronic inactive gastritis, H. pylori positive. Last EGD 10/2021 was endoscopically normal, gastric biopsy mild inactive gastritis, negative for H. pylori. Colonoscopy with attempted at the same time, unable to complete due to poor tolerance of sedation, rectum and rectosigmoid appeared normal, no biopsies. Symptoms include nausea, increased gas and bloating, belching, early satiety, reflux, globus sensation, generalized abdominal pain, explosive diarrhea, and unintentional weight loss. States one day 2 years ago shewas unable to eat, symptom onset was sudden. Starting weight was around 400 pounds, today she is 257 pounds. She tries to eat small meals several times a day, all oral intake exacerbates symptoms. Nausea is constant but rarely has emesis, explains its more reflux of stomach acid or yellow bile, denies any bloody or coffee ground appearance. Has taken pantoprazole 40 mg as needed for the last couple years. Denies dysphagia or odynophagia, but with intermittent sensation of something stuck in herthroat. Diarrhea occurs 4-5 times a day, may be small amounts, typically occurs with urgency and is explosive, has had fecal incontinence at times. Denies blood or mucus in the stool. Since onset of symptoms she started using medical marijuana daily which moderately improves her symptoms, but within 24 hours of not using marijuana her symptoms will return. Denies any restrictive dieting, dietary or medication changes. Recently established with new PCP, history of thyroid nodules and is scheduled for thyroid ultrasound. Current everyday smoker, denies alcohol use or drug use other than marijuana. Denies NSAIDs use, recently started on Voltaren for neck and back pain after spine x-rays revealed mild to severe degeneration. She denies family history of colon cancer. She expresses frustrationwith past work-up and is tearful at times when discussing ongoing symptoms and previous healthcare encounters. Past Medical History: Past Medical History: Diagnosis Date Abdominal pain Anxiety and depression Bipolar 1 disorder (HCC) Personality disorder in adult (HCC) PTSD (post-traumatic stress disorder) Schizo affective schizophrenia (HCC) Surgical History & Procedures: Past Surgical History: Procedure Laterality Date CHOLECYSTECTOMY COLONOSCOPY 11/10/[address] [facility], normal ESOPHAGOGASTRODUODENOSCOPY 02/24/[address] [facility], mild chronic inactive gastritis with rare h-pylori LUNG SURGERY Left early PLANTAR FASCIA SURGERY Social History: Social History Socioeconomic History Marital status: Single Tobacco Use Smoking status: Every Day Packs/day: 2 Types: Cigarettes Smokeless tobacco: Never Tobacco comments: Patient doesn't want to quit unless boyfriend does to make it easier Vaping Use Vaping Use: Former Substance and Sexual Activity Alcohol use: Never Drug use: Yes Types: Marijuana Comment: medical Sexual activity: Yes Partners: Male control/protection: None Family History Problem Relation Age of Onset Arthritis Mother Diabetes Mother Heart disease Mother Heart disease Father Current Medications: Current Outpatient Medications Medication Sig Dispense Refill calcium-vitamin D (OS-TONEY +D) 500 mg-5 mcg (200 unit) per tablet Take 1 (one) tablet by mouth 2 (two) times a day with meals . 60 tablet 11 diclofenac sodium (VOLTAREN) 75 MG EC tablet Take 1 (one) tablet (75 mg total) by mouth 2 (two) times a day with meals . 60 tablet 0 potassium chloride (KLOR-CON) 20 mEq packet Take 20 (twenty) mEq by mouth daily . 30 packet 0 bisacodyL (DULCOLAX) 5 mg EC tablet Take 4 tablets 8PM the evening before your colonoscopy . 4 tablet 0 omeprazole (PRILOSEC) 40 MG capsule Take 1 (one) capsule (40 mg total) by mouth daily . 30 capsule 11 polyethylene glycol (GoLYTELY) 236-22.74-6.74 -5.86 gram solution Take 4,000 mL by mouth once for 1dose . 4000 mL 0 sucralfate (CARAFATE) 1 gram tablet Take 1 (one) tablet (1 g total) by mouth 4 (four) times a day before meals . 30 tablet 0 No current facility-administered medications for this visit. Review of Systems Constitutional: Positive for appetite change and unexpected weight change. Negative for fatigue andfever. HENT: Negative for mouth sores, trouble swallowing and voice change. Eyes: Negative for redness. Respiratory: Negative for cough, choking and shortness of breath. Cardiovascular: Negative for chest pain and palpitations. Gastrointestinal: Positive for abdominal pain, diarrhea, nausea, rectal pain and vomiting. Negativefor blood in stool and constipation. Endocrine: Negative. Genitourinary: Negative for difficulty urinating. Musculoskeletal: Negative for arthralgias and joint swelling. Skin: Negative for color change and pallor. Allergic/Immunologic: Negative. Neurological: Negative for dizziness, syncope and light-headedness. Hematological: Negative. Psychiatric/Behavioral: Negative. Physical Exam Constitutional: General: She is not in acute distress. Appearance: She is obese. HENT: Head: Normocephalic and atraumatic. Right Ear: External ear normal. Left Ear: External ear normal. Nose: Nose normal. Mouth/Throat: Mouth: Mucous membranes are moist. Pharynx: No posterior oropharyngeal erythema. Eyes: General: No scleral icterus. Pupils: Pupils are equal, round, and reactive to light. Cardiovascular: Rate and Rhythm: Normal rate and regular rhythm. Heart sounds: No murmur heard. No gallop. Pulmonary: Effort: Pulmonary effort is normal. No respiratory distress. Breath sounds: Normal breath sounds. No wheezing. Abdominal: General: Bowel sounds are normal. There is no distension. Palpations: Abdomen is soft. There is no mass. Tenderness: There is no abdominal tenderness. Musculoskeletal: General: No deformity. Normal range of motion. Cervical back: Normal range of motion and neck supple. Skin: General: Skin is warm and dry. Coloration: Skin is not jaundiced or pale. Neurological: General: No focal deficit present. Mental Status: She is alert and oriented to person, place, and time. Psychiatric: Mood and Affect: Mood normal. Behavior: Behavior normal. Lab Draw on 04/02/2023 Component Date Value Ref Range Status TSH 04/02/2023 0.70 0.27 - 4.20 mcIU/mL Final Sodium 04/02/2023 139 135 - 145 mmol/L Final Potassium 04/02/2023 3.9 3.5 - 5.1 mmol/L Final Chloride 04/02/2023 98 98 - 108 mmol/L Final Bicarbonate 04/02/2023 28 21 - 32 mmol/L Final Anion Gap 04/02/2023 17 10 - 20 mmol/L Final Glucose 04/02/2023 97 65 - 99 mg/dL Final BUN 04/02/2023 5 (L) 8 - 25 mg/dL Final Creatinine 04/02/2023 0.64 0.40 - 1.10 mg/dL Final eGFR 04/02/2023 116 >=60 mL/min/1.73 m2 Final Estimated GFR was calculated using the 2020 CKD-EPI creatinine equation. BUN/Creatinine Ratio 04/02/2023 7.8 (L) 10.0 - 20.0 Final Total Protein 04/02/2023 7.6 6.0 - 8.0 g/dL Final Albumin 04/02/2023 4.8 3.2 - 5.2 g/dL Final Calcium 04/02/2023 9.7 8.4 - 10.2 mg/dL Final Alkaline Phosphatase 04/02/2023 55 40 - 140 U/L Final AST 04/02/2023 15 0-35 U/L U/L Final ALT 04/02/2023 6 0-35 U/L U/L Final Total Bilirubin 04/02/2023 0.4 0.0 - 1.3 mg/dL Final Hemoglobin A1C 04/02/2023 4.9 4.2 - 5.6 % Final Estimated Average Glucose 04/02/2023 94 74 - 114 mg/dL Final Vit D, 25-Hydroxy 04/02/2023 30 30 - 100 ng/mL Final Vitamin D status: Deficiency: <10 ng/mL Insufficiency: 10-30 ng/mL Sufficiency: 30-100 ng/mL Toxicity: >100 ng/mL Magnesium 04/02/2023 2.1 1.6 - 2.4 mg/dL Final WBC 04/02/2023 6.47 4.50 - 11.00 K/mcL Final RBC 04/02/2023 5.27 (H) 4.00 - 5.20 M/mcL Final Hemoglobin 04/02/2023 13.8 12.0 - 16.0 g/dL Final Hematocrit 04/02/2023 43.6 36.0 - 46.0 % Final MCV 04/02/2023 82.7 80.0 - 100.0 fL Final MCH 04/02/2023 26.2 26.0 - 34.0 pg Final MCHC 04/02/2023 31.7 31.0 - 37.0 g/dL Final Platelets 04/02/2023 369 150 - 400 K/mcL Final RDW - CV 04/02/2023 14.5 11.6 - 14.8 % Final MPV 04/02/2023 11.0 9.4 - 12.4 fL Final Neutrophils 04/02/2023 56.2 % Final Lymphocytes 04/02/2023 32.5 % Final Monocytes 04/02/2023 8.0 % Final Eosinophils 04/02/2023 1.9 % Final Basophils 04/02/2023 1.1 % Final IG Percent 04/02/2023 0.30 % Final The IG parameter is the percentage of metamyelocytes, myelocytes and promyelocytes. An immature granulocyte count (IG) of 1% or more suggests the possibility of infection, an IG count of 3% is very likely related to an infection. Neutrophils Abs 04/02/2023 3.64 1.70 - 7.00 K/mcL Final Lymphocytes Abs 04/02/2023 2.10 0.90 - 4.00 K/mcL Final Monocytes Abs 04/02/2023 0.52 0.30 - 0.90 K/mcL Final Eosinophils Abs 04/02/2023 0.12 0.00 - 0.50 K/mcL Final Basophils Abs 04/02/2023 0.07 0.00 - 0.30 K/mcL Final IG Absolute 04/02/2023 0.02 0.00 - 0.30 K/mcL Final Nucleated RBC 04/02/2023 0.0 % Final Nucleated RBC Abs 04/02/2023 0.00 0.00 - 0.00 K/mcL Final Admission on 03/31/2023, Discharged on 03/31/2023 Component Date Value Ref Range Status Extra Tube 03/31/2023 Hold for add-ons. Final Auto resulted. Extra Tube 03/31/2023 Hold for add-ons. Final Auto resulted. Extra Tube 03/31/2023 Hold for add-ons. Final Auto resulted. Ventricular Rate 03/31/2023 79 BPM Final Atrial Rate 03/31/2023 79 BPM Final P-R Interval 03/31/2023 150 ms Final QRS Duration 03/31/2023 98 ms Final Q-T Interval 03/31/2023 428 ms Final QTC Calculation (Bezet) 03/31/2023 490 ms Final P Kermit 03/31/2023 71 degrees Final R Kermit 03/31/2023 37 degrees Final T Kermit 03/31/2023 40 degrees Final SARS-CoV-2 03/31/2023 Not Detected Not Detected Final Influenza A 03/31/2023 Not Detected Not Detected Final Influenza B 03/31/2023 Not Detected Not Detected Final Sodium 03/31/2023 137 135 - 145 mmol/L Final Potassium 03/31/2023 2.7 (CL) 3.5 - 5.1 mmol/L Final Chloride 03/31/2023 102 98 - 108 mmol/L Final Bicarbonate 03/31/2023 30 21 - 32 mmol/L Final Anion Gap 03/31/2023 8 (L) 10 - 20 mmol/L Final Glucose 03/31/2023 106 (H) 65 - 99 mg/dL Final BUN 03/31/2023 5 (L) 8 - 25 mg/dL Final Creatinine 03/31/2023 0.94 0.40 - 1.10 mg/dL Final eGFR 03/31/2023 80 >=60 mL/min/1.73 m2 Final Estimated GFR was calculated using the 2020 CKD-EPI creatinine equation. BUN/Creatinine Ratio 03/31/2023 5.3 (L) 10.0 - 20.0 Final Calcium 03/31/2023 9.7 8.4 - 10.2 mg/dL Final Troponin I 03/31/2023 <3 <=59 ng/L Final Troponin I Interpretation 03/31/2023 Normal Final D-Dimer 03/31/2023 <0.27 0.27 - 0.49 mcg/mL FEU Final Beta-hCG Qual 03/31/2023 Negative Negative Final WBC 03/31/2023 6.86 4.50 - 11.00 K/mcL Final RBC 03/31/2023 5.21 (H) 4.00 - 5.20 M/mcL Final Hemoglobin 03/31/2023 13.8 12.0 - 16.0 g/dL Final Hematocrit 03/31/2023 41.7 36.0 - 46.0 % Final MCV 03/31/2023 80.0 80.0 - 100.0 fL Final MCH 03/31/2023 26.5 26.0 - 34.0 pg Final MCHC 03/31/2023 33.1 31.0 - 37.0 g/dL Final Platelets 03/31/2023 384 150 - 400 K/mcL Final RDW - CV 03/31/2023 14.4 11.6 - 14.8 % Final MPV 03/31/2023 10.2 9.4 - 12.4 fL Final Neutrophils 03/31/2023 52.5 % Final Lymphocytes 03/31/2023 36.0 % Final Monocytes 03/31/2023 8.6 % Final Eosinophils 03/31/2023 1.3 % Final Basophils 03/31/2023 1.3 % Final IG Percent 03/31/2023 0.30 % Final The IG parameter is the percentage of metamyelocytes, myelocytes and promyelocytes. An immature granulocyte count (IG) of 1% or more suggests the possibility of infection, an IG count of 3% is very likely related to an infection. Neutrophils Abs 03/31/2023 3.60 1.70 - 7.00 K/mcL Final Lymphocytes Abs 03/31/2023 2.47 0.90 - 4.00 K/mcL Final Monocytes Abs 03/31/2023 0.59 0.30 - 0.90 K/mcL Final Eosinophils Abs 03/31/2023 0.09 0.00 - 0.50 K/mcL Final Basophils Abs 03/31/2023 0.09 0.00 - 0.30 K/mcL Final IG Absolute 03/31/2023 0.02 0.00 - 0.30 K/mcL Final Nucleated RBC 03/31/2023 0.0 % Final Nucleated RBC Abs 03/31/2023 0.00 0.00 - 0.00 K/mcL Final TSH 03/31/2023 1.46 0.27 - 4.20 mcIU/mL Final Magnesium 03/31/2023 2.5 (H) 1.6 - 2.4 mg/dL Final Office Visit on 03/22/2023 Component Date Value Ref Range Status Case Report 03/22/2023 Final Value:Gynecologic Cytology Report Case: [id number] Authorizing Provider: Tory Mandel CNP Collected: 03/22/2023 05:01 PM Ordering Location: [facility] IMPLEMENTATION MANAGER - Received: 03/23/2023 04:41 PM [facility] First Screen: Yuki CARR(ASCP), Cheyanne Cordoba Specimen: THINPREP PAP SMEAR, Cervix / Endocervix Specimen Adequacy 03/22/2023 Satisfactory for evaluation; endocervical/transformation zone component present Final Interpretation 03/22/2023 Negative for intraepithelial lesion or malignancy Final Comment 03/22/2023 Final Value:The specimen was reprocessed in an attempt to improve cellularity/quality. Two slides were available for cytologic evaluation. Educational Note 03/22/2023 Final Value:The Pap smear is a screening test for the detection of cervical cancer and its precursor lesions. False positive and false negative results can occur. The test should be performed at regular intervals, and positive results should be confirmed before definitive therapy. Additional testing methods may be helpful in detecting abnormalities or in clinical management. The specimen has been analyzed by the [employer] imaging system, an automated imaging and review system which assists the laboratory in evaluating cells on ThinPrep tests. Following automated imaging selected santiago from every slide are reviewed by a hris specialist. Specimen processing and Primary Screening performed at: [facility] - [address] [place] [id number] HPV Results 03/22/2023 Final Value:This result contains rich text formatting which cannot be displayed here. LMP 03/22/2023 03/19/2023 Final HPV 16 03/22/2023 Negative Negative Final HPV 18 03/22/2023 Negative Negative Final HPV, Other HR Types 03/22/2023 Negative Negative Final Office Visit on 03/15/2023 Component Date Value Ref Range Status POC Preg Test, Ur 03/15/2023 Negative Negative Final Internal Control 03/15/2023 Pass Final Color, Urine 03/15/2023 Yellow Colorless, Yellow Final Clarity, Urine 03/15/2023 Clear Clear Final Specific Marana 03/15/2023 1.012 1.005 - 1.025 Final pH, Urine 03/15/2023 7.5 (H) 5.0 - 7.0 Final Protein, Urine 03/15/2023 Negative Negative mg/dL Final Glucose, Urine 03/15/2023 Negative Negative mg/dL Final Ketones, Urine 03/15/2023 Negative Negative mg/dL Final Bilirubin, Urine 03/15/2023 Negative Negative Final Urobilinogen, Urine 03/15/2023 <2.0 <2.0 mg/dL Final Blood, Urine 03/15/2023 Negative Negative Final Nitrite, Urine 03/15/2023 Negative Negative Final Leukocyte Esterase, Urine 03/15/2023 Negative Negative Final WBCs, Urine 03/15/2023 1 0 - 5 /hpf Final RBCs, Urine 03/15/2023 1 0 - 3 /hpf Final Bacteria, Urine 03/15/2023 Rare (A) None Seen /hpf Final Squamous Epithelial 03/15/2023 2 0 - 4 /hpf Final Transitional Epithelial 03/15/2023 <1 0 - 1 /hpf Final Mucus, Urine 03/15/2023 Rare None Seen, Rare /lpf Final Trichomonas vaginalis 03/15/2023 Negative Negative Final Gardnerella vaginalis 03/15/2023 Positive (A) Negative Final The presence of Gardnerella vaginalis, although suggestive, is not diagnostic for bacterial vaginosis. Results should be interpreted in conjunction with other clinical and laboratory data. Cordelia Species 03/15/2023 Negative Negative Final Chlamydia trachomatis Amplified RNA 03/15/2023 NEGATIVE Negative Final Neisseria gonorrhoeae Amplfied RNA 03/15/2023 NEGATIVE Negative Final Assessment & Plan: 37-year-old female with 2-year history of ongoing chronic diarrhea with urgency and incontinence, abdominal pain, nausea, early satiety, and weight loss. Has had 2 EGDs since that timeframe, last EGDwas normal with pathology revealing mild inactive gastritis, negative for H. pylori. 2020 EGD positive for H. pylori. Colonoscopy was unable to be completed due to poor sedation, rectum and rectosigmoid colon appeared normal, no biopsies. Complete gastric emptying study Check TTG IgA to evaluate for celiac Stop taking pantoprazole for 2 weeks, complete H. pylori breath test We will switch to omeprazole 40 mg p.o. daily, add sucralfate 1 g p.o. 4 times daily Discussed other dietary and lifestyle adjustment/recommendations--education provided to AVS Consider imodium as needed for diarrhea Discussed colonoscopy, questions addressed, informed consent obtained Nulytely prep sent to pharmacy of choice, medications reviewed, written instructions provided Patient scheduled for colonoscopy with Dr. Norton at [facility] endoscopy suite on 05/14/2023 at noon. We will follow-up after testing and procedure completed, may consider dicyclomine or hyoscyamine after gastric emptying study completed Lindsay Sherman CNP Please note: Portions of this chart may have been created with [email or web address] voice recognition software. Occasional wrong-word or sound-like substitutions may have occurred due to inherent limitations of the voice recognition software. Please read the chart carefully and recognize, using context, where the substitutions have occurred. documented in this [id number] Instructions* Patient Instructions* Lindsay Sherman CNP - 04/08/2023 10:25 AM EDT Stop pantoprazole, then in 2 weeks (around 04/23/2023) complete H.pylori breath test Call central scheduling to arrange gastric emptying study After H.pylori test, start taking sucralfate and omeprazole Take omeprazole (proton pump inhibitor) daily, 30-60 minutes prior to breakfast It is recommended to decrease/stop consumption of any of the following aggravating factors: alcohol, caffeine, and acidic/citric foods that aggravate symptoms, such as onions, tomatoes, citrus fruits, etc. Further recommendations include: weight loss or maintaining a healthy weight, smoking cessation, avoidance of meals within 3 hours of bedtime, and elevation of the head end of the bed while laying down. Avoid NSAIDs, such as: Ibuprofen, Motrin, Aleve, Advil, etc. May take acetaminophen (Tylenol) as needed for aches and pains * Attachments The following attachments cannot be sent through [facility] Everywhere. * Potassium-Rich Diet (French) * Colonoscopy: Pre-op (French) documented in this [id number] Emergency department Note* Luiza Teague RN - 03/07/2023 11:21 PM EDT Pt resting comfortably upon entering room, no distress noted, with easy respirations. Pt is alert and oriented x4. Pt given and educated on discharge instructions, medications reviewed and educated on those prescribed, s/s to return to ED and to follow up with PCP as needed. Pt states understandingand has no further questions at this time. [facility]08-06-2023 Emergency department Note* Luiza Teague RN - 03/07/2023 11:21 PM EDT Pt resting comfortably upon entering room, no distress noted, with easy respirations. Pt is alert and oriented x4. Pt given and educated on discharge instructions, medications reviewed and educated on those prescribed, s/s to return to ED and to follow up with PCP as needed. Pt states understandingand has no further questions at this time. * Toi Burt MD - 03/07/2023 8:21 PM EDT Emergency Department Report [facility] Service Date:.03/07/23 PCP: [facility] Chief Complaint: Chief Complaint Patient presents with Abdominal Pain Pt reports lower periumbilicus abdominal pain that began 4-5 days. Pt reports cramping. Pt +N/V/D. Pt denies urinary symptoms or back pain. Pt rates pain 7/10 in abdomen HPI Damaris Dykes is a 37 y.o. female presents to the ED today due to abdominal pain, nausea, vomiting and diarrhea. Patient states the symptoms started the last 3-4 days. The pain started becoming more severe tonight. States the pain is 7/10 diffuse across the abdomen. Nothing seems to make her symptoms better or worse. Review of Systems: Review of Systems Constitutional: Negative for fever. Genitourinary: Negative for dysuria. Past Medical History: No past medical history on file. Past Surgical History: Past Surgical History: Procedure Laterality Date LOBECTOMY pt had lobectomy of lung.,unsure which lung or how much.. REMOVAL BILIARY DUCT/GALLBLADDER CALCULI/DEBRIS PERCUTANEOUS W/ IMAGE Allergies: Allergies Allergen Reactions Remeron [Mirtazapine] Medications: Patient's Medications New Prescriptions POTASSIUM CHLORIDE 20 MEQ TAB CR TABLET Take 1 tablet by mouth 2 times daily with meals for 5 days. Previous Medications No medications on file Modified Medications No medications on file Discontinued Medications No medications on file Family History: No family history on file. Social History: Social History Socioeconomic History Marital status: Single Spouse name: Not on file Number of children: Not on file Years of education: Not on file Highest education level: Not on file Occupational History Not on file Tobacco Use Smoking status: Every Day Packs/day: 2.00 Types: Cigarettes Smokeless tobacco: Never Substance and Sexual Activity Alcohol use: Not Currently Drug use: Yes Types: Marijuana Sexual activity: Not on file Other Topics Concern Not on file Social History Narrative Not on file Social Determinants of Health Financial Resource Strain: Not on file Food Insecurity: Not on file Transportation Needs: Not on file Physical Activity: Not on file Stress: Not on file Social Connections: Not on file Intimate Partner Violence: Not on file Housing Stability: Not on file Physical Exam: Physical Exam Vitals and nursing note reviewed. Constitutional: Appearance: She is well-developed. HENT: Head: Normocephalic and atraumatic. Mouth/Throat: Mouth: Mucous membranes are moist. Pharynx: Oropharynx is clear. Cardiovascular: Rate and Rhythm: Normal rate and regular rhythm. Pulmonary: Effort: Pulmonary effort is normal. Breath sounds: Normal breath sounds. Abdominal: General: Bowel sounds are normal. Palpations: Abdomen is soft. Tenderness: There is generalized abdominal tenderness. There is no guarding or rebound. Skin: General: Skin is warm. Capillary Refill: Capillary refill takes less than 2 seconds. Neurological: General: No focal deficit present. Mental Status: She is alert and oriented to person, place, and time. Psychiatric: Mood and Affect: Mood normal. Behavior: Behavior normal. Vital Signs During ED Visit Patient Vitals for the past 24 hrs: BP Temp Temp src Pulse Resp SpO2 Height Weight 03/07/239 137/77 -- -- 91 16 98 % -- -- 03/07/232012 -- -- -- -- -- -- 1.778 m (5' 10) 120.2 kg (265 lb) 03/07/232011 140/82 97.1 F (36.2 C) Oral 93 18 99 % -- -- Orders/Results: Orders Placed This Encounter CT ABDOMEN/PELVIS WITHOUT CONTRAST LIPASE CBC, EDIF, PLATELET COMPREHENSIVE METABOLIC PANEL BETA HCG, QUAL, BLOOD MAGNESIUM hydroCODone-acetaminophen (NORCO) 5-325 MG per tablet 1 tablet ondansetron (ZOFRAN-ODT) disintegrating tablet 4 mg potassium bicarbonate (EFFER-K) effervescent tablet 50 mEq ondansetron (ZOFRAN-ODT) disintegrating tablet 1 Each Potassium chloride 20 MEQ Tab CR tablet Promethazine (PHENERGAN) tablet 25 mg Dicyclomine (BENTYL) capsule 10 mg URINALYSIS, MACRO Results for orders placed or performed during the hospital encounter of 03/07/23 LIPASE Result Value Ref Range LIPASE 29 23 - 300 U/L CBC, EDIF, PLATELET Result Value Ref Range WBC (WHITE BLOOD COUNT) 11.2 (H) 3.6 - 11.0 10*3/uL RBC 5.07 4.0 - 5.4 10*6/uL HEMOGLOBIN (HGB) 13.4 12.0 - 16.0 G/DL HEMATOCRIT (HCT) 40.6 36.0 - 48.0 % MEAN CELL VOLUME 80.2 80.0 - 100.0 FL Mean Cell HGB 26.4 26.0 - 35.0 PG MEAN CELL HGB CONCENTRATION 32.9 27.0 - 37.0 G/DL RBC DISTRIBUTION 15.3 (H) 11.5 - 14.5 % PLATELET COUNT 325 130 - 400 10*3/uL MEAN PLATELET VOLUME 8.2 7.4 - 11.0 FL DIFFERENTIAL TYPE AUTO DIFF % NEUTROPHILS 63.4 37.0 - 75.0 % LYMPHOCYTE 25.2 20.0 - 55.0 % MONOCYTE % 9.1 0.0 - 10.0 % EOSINOPHIL % 1.5 0.0 - 11.0 % BASOPHIL % 0.8 0.0 - 2.0 % Absolute Neutrophil Count 7.1 (H) 1.4 - 6.5 10*3/uL LYMPHOCYTES, ABSOLUTE 2.8 1.2 - 3.4 10*3/uL MONOCYTES, ABSOLUTE 1.0 (H) 0.0 - 0.7 10*3/uL ABSOLUTE EOSINOPHIL COUNT 0.2 0.0 - 0.7 10*3/uL ABSOLUTE BASOPHIL COUNT 0.1 0.0 - 0.2 10*3/uL COMPREHENSIVE METABOLIC PANEL Result Value Ref Range Glucose 110 (H) 70 - 100 MG/DL BUN 3 (L) 7 - 20 MG/DL CREATININE SERUM 0.80 0.70 - 1.20 MG/DL SODIUM 138 137 - 145 MMOL/L POTASSIUM 2.7 (LL) 3.5 - 5.1 MMOL/L CHLORIDE 96 (L) 98 - 107 MMOL/L CALCIUM 9.2 8.4 - 10.2 MG/DL PROTEIN, TOTAL 7.5 6.3 - 8.2 GM/DL Albumin 4.6 3.5 - 5.0 G/dl BILIRUBIN, TOTAL 0.6 0.2 - 1.3 MG/DL AST 30 14 - 36 IU/L ALKALINE PHOSPHATASE 57 38 - 126 IU/L CARBON DIOXIDE (CO2) 33 (H) 22 - 30 MMOL/L A/G Ratio 1.6 RATIO ALT 15 <35 IU/L ESTIMATED GFR, NON AMER 85 ml/min/1.73sq.m ESTIMATED GFR, 103 ml/min/1.73sq.m GFR COMMENT Average GFR for 30-39 years old = 107. BETA HCG, QUAL, BLOOD Result Value Ref Range BETA HCG (QUAL), SERUM NEGATIVE NEGATIVE MAGNESIUM Result Value Ref Range MAGNESIUM 2.3 1.6 - 2.3 MG/DL URINALYSIS, MACRO Result Value Ref Range COLOR, URINE YELLOW YELLOW APPEARANCE, URINE CLEAR CLEAR Specific Marana, Urine 1.010 1.010 - 1.025 PH URINE 6.5 5.0 - 7.0 Urine Protein NEGATIVE NEGATIVE mg/dl GLUCOSE, URINE NEGATIVE NEGATIVE mg/dl KETONES, URINE NEGATIVE NEGATIVE mg/dl BILIRUBIN, URINE NEGATIVE NEGATIVE BLOOD, URINE DIPSTICK NEGATIVE NEGATIVE NITRITES, URINE NEGATIVE NEGATIVE UROBILINOGEN, URINE 0.2 0.2 - 1.0 E.U./dL LEUKOCYTE ESTERASE, URINE NEGATIVE NEGATIVE Radiographic Imaging CT ABDOMEN/PELVIS WITHOUT CONTRAST Final Result IMPRESSION: Apparent prior cholecystectomy. No acute intra-abdominal or pelvic process is otherwise identified. Procedures: Procedures Moderate Sedation Procedure: No ED Summary/MDM Medical Decision Making Amount and/or Complexity of Data Reviewed Labs: ordered. Radiology: ordered. Discussion of management or test interpretation with external provider(s): Patient had no further vomiting or diarrhea during her ER course. We started replacing her potassium with K-Lyte after fast since 50 mg of lungs. She will continue 20 mEq twice a day for the next 5 days. She will be given a p rescription for Phenergan for home and potassium supplements. Risk Prescription drug management. Clinical Impression: 1. Generalized abdominal pain 2. Nausea and vomiting, unspecified vomiting type 3. Diarrhea, unspecified type 4. Hypokalemia No follow-ups on file. New Prescriptions POTASSIUM CHLORIDE 20 MEQ TAB CR TABLET Take 1 tablet by mouth 2 times daily with meals for 5 days. Discontinued Medications No medications on file An After Visit Summary was printed and given to the patient with above information. . . Toi Burt MD 03/07/23 2307 [facility] [place] Emergency department Note* Toi Burt MD - 03/07/2023 8:21 PM EDT Emergency Department Report [facility] Service Date:.03/07/23 PCP: [facility] Chief Complaint: Chief Complaint Patient presents with Abdominal Pain Pt reports lower periumbilicus abdominal pain that began 4-5 days. Pt reports cramping. Pt +N/V/D. Pt denies urinary symptoms or back pain. Pt rates pain 7/10 in abdomen HPI Damaris Dykes is a 37 y.o. female presents to the ED today due to abdominal pain, nausea, vomiting and diarrhea. Patient states the symptoms started the last 3-4 days. The pain started becoming more severe tonight. States the pain is 7/10 diffuse across the abdomen. Nothing seems to make her symptoms better or worse. Review of Systems: Review of Systems Constitutional: Negative for fever. Genitourinary: Negative for dysuria. Past Medical History: No past medical history on file. Past Surgical History: Past Surgical History: Procedure Laterality Date LOBECTOMY pt had lobectomy of lung.,unsure which lung or how much.. REMOVAL BILIARY DUCT/GALLBLADDER CALCULI/DEBRIS PERCUTANEOUS W/ IMAGE Allergies: Allergies Allergen Reactions Remeron [Mirtazapine] Medications: Patient's Medications New Prescriptions POTASSIUM CHLORIDE 20 MEQ TAB CR TABLET Take 1 tablet by mouth 2 times daily with meals for 5 days. Previous Medications No medications on file Modified Medications No medications on file Discontinued Medications No medications on file Family History: No family history on file. Social History: Social History Socioeconomic History Marital status: Single Spouse name: Not on file Number of children: Not on file Years of education: Not on file Highest education level: Not on file Occupational History Not on file Tobacco Use Smoking status: Every Day Packs/day: 2.00 Types: Cigarettes Smokeless tobacco: Never Substance and Sexual Activity Alcohol use: Not Currently Drug use: Yes Types: Marijuana Sexual activity: Not on file Other Topics Concern Not on file Social History Narrative Not on file Social Determinants of Health Financial Resource Strain: Not on file Food Insecurity: Not on file Transportation Needs: Not on file Physical Activity: Not on file Stress: Not on file Social Connections: Not on file Intimate Partner Violence: Not on file Housing Stability: Not on file Physical Exam: Physical Exam Vitals and nursing note reviewed. Constitutional: Appearance: She is well-developed. HENT: Head: Normocephalic and atraumatic. Mouth/Throat: Mouth: Mucous membranes are moist. Pharynx: Oropharynx is clear. Cardiovascular: Rate and Rhythm: Normal rate and regular rhythm. Pulmonary: Effort: Pulmonary effort is normal. Breath sounds: Normal breath sounds. Abdominal: General: Bowel sounds are normal. Palpations: Abdomen is soft. Tenderness: There is generalized abdominal tenderness. There is no guarding or rebound. Skin: General: Skin is warm. Capillary Refill: Capillary refill takes less than 2 seconds. Neurological: General: No focal deficit present. Mental Status: She is alert and oriented to person, place, and time. Psychiatric: Mood and Affect: Mood normal. Behavior: Behavior normal. Vital Signs During ED Visit Patient Vitals for the past 24 hrs: BP Temp Temp src Pulse Resp SpO2 Height Weight 03/07/232128 137/77 -- -- 91 16 98 % -- -- 03/07/232012 -- -- -- -- -- -- 1.778 m (5' 10) 120.2 kg (265 lb) 03/07/232011 140/82 97.1 F (36.2 C) Oral 93 18 99 % -- -- Orders/Results: Orders Placed This Encounter CT ABDOMEN/PELVIS WITHOUT CONTRAST LIPASE CBC, EDIF, PLATELET COMPREHENSIVE METABOLIC PANEL BETA HCG, QUAL, BLOOD MAGNESIUM hydroCODone-acetaminophen (NORCO) 5-325 MG per tablet 1 tablet ondansetron (ZOFRAN-ODT) disintegrating tablet 4 mg potassium bicarbonate (EFFER-K) effervescent tablet 50 mEq ondansetron (ZOFRAN-ODT) disintegrating tablet 1 Each Potassium chloride 20 MEQ Tab CR tablet Promethazine (PHENERGAN) tablet 25 mg Dicyclomine (BENTYL) capsule 10 mg URINALYSIS, MACRO Results for orders placed or performed during the hospital encounter of 03/07/23 LIPASE Result Value Ref Range LIPASE 29 23 - 300 U/L CBC, EDIF, PLATELET Result Value Ref Range WBC (WHITE BLOOD COUNT) 11.2 (H) 3.6 - 11.0 10*3/uL RBC 5.07 4.0 - 5.4 10*6/uL HEMOGLOBIN (HGB) 13.4 12.0 - 16.0 G/DL HEMATOCRIT (HCT) 40.6 36.0 - 48.0 % MEAN CELL VOLUME 80.2 80.0 - 100.0 FL Mean Cell HGB 26.4 26.0 - 35.0 PG MEAN CELL HGB CONCENTRATION 32.9 27.0 - 37.0 G/DL RBC DISTRIBUTION 15.3 (H) 11.5 - 14.5 % PLATELET COUNT 325 130 - 400 10*3/uL MEAN PLATELET VOLUME 8.2 7.4 - 11.0 FL DIFFERENTIAL TYPE AUTO DIFF % NEUTROPHILS 63.4 37.0 - 75.0 % LYMPHOCYTE 25.2 20.0 - 55.0 % MONOCYTE % 9.1 0.0 - 10.0 % EOSINOPHIL % 1.5 0.0 - 11.0 % BASOPHIL % 0.8 0.0 - 2.0 % Absolute Neutrophil Count 7.1 (H) 1.4 - 6.5 10*3/uL LYMPHOCYTES, ABSOLUTE 2.8 1.2 - 3.4 10*3/uL MONOCYTES, ABSOLUTE 1.0 (H) 0.0 - 0.7 10*3/uL ABSOLUTE EOSINOPHIL COUNT 0.2 0.0 - 0.7 10*3/uL ABSOLUTE BASOPHIL COUNT 0.1 0.0 - 0.2 10*3/uL COMPREHENSIVE METABOLIC PANEL Result Value Ref Range Glucose 110 (H) 70 - 100 MG/DL BUN 3 (L) 7 - 20 MG/DL CREATININE SERUM 0.80 0.70 - 1.20 MG/DL SODIUM 138 137 - 145 MMOL/L POTASSIUM 2.7 (LL) 3.5 - 5.1 MMOL/L CHLORIDE 96 (L) 98 - 107 MMOL/L CALCIUM 9.2 8.4 - 10.2 MG/DL PROTEIN, TOTAL 7.5 6.3 - 8.2 GM/DL Albumin 4.6 3.5 - 5.0 G/dl BILIRUBIN, TOTAL 0.6 0.2 - 1.3 MG/DL AST 30 14 - 36 IU/L ALKALINE PHOSPHATASE 57 38 - 126 IU/L CARBON DIOXIDE (CO2) 33 (H) 22 - 30 MMOL/L A/G Ratio 1.6 RATIO ALT 15 <35 IU/L ESTIMATED GFR, NON AMER 85 ml/min/1.73sq.m ESTIMATED GFR, 103 ml/min/1.73sq.m GFR COMMENT Average GFR for 30-39 years old = 107. BETA HCG, QUAL, BLOOD Result Value Ref Range BETA HCG (QUAL), SERUM NEGATIVE NEGATIVE MAGNESIUM Result Value Ref Range MAGNESIUM 2.3 1.6 - 2.3 MG/DL URINALYSIS, MACRO Result Value Ref Range COLOR, URINE YELLOW YELLOW APPEARANCE, URINE CLEAR CLEAR Specific Marana, Urine 1.010 1.010 - 1.025 PH URINE 6.5 5.0 - 7.0 Urine Protein NEGATIVE NEGATIVE mg/dl GLUCOSE, URINE NEGATIVE NEGATIVE mg/dl KETONES, URINE NEGATIVE NEGATIVE mg/dl BILIRUBIN, URINE NEGATIVE NEGATIVE BLOOD, URINE DIPSTICK NEGATIVE NEGATIVE NITRITES, URINE NEGATIVE NEGATIVE UROBILINOGEN, URINE 0.2 0.2 - 1.0 E.U./dL LEUKOCYTE ESTERASE, URINE NEGATIVE NEGATIVE Radiographic Imaging CT ABDOMEN/PELVIS WITHOUT CONTRAST Final Result IMPRESSION: Apparent prior cholecystectomy. No acute intra-abdominal or pelvic process is otherwise identified. Procedures: Procedures Moderate Sedation Procedure: No ED Summary/MDM Medical Decision Making Amount and/or Complexity of Data Reviewed Labs: ordered. Radiology: ordered. Discussion of management or test interpretation with external provider(s): Patient had no further vomiting or diarrhea during her ER course. We started replacing her potassium with K-Lyte after fast since 50 mg of lungs. She will continue 20 mEq twice a day for the next 5 days. She will be given a p rescription for Phenergan for home and potassium supplements. Risk Prescription drug management. Clinical Impression: 1. Generalized abdominal pain 2. Nausea and vomiting, unspecified vomiting type 3. Diarrhea, unspecified type 4. Hypokalemia No follow-ups on file. New Prescriptions POTASSIUM CHLORIDE 20 MEQ TAB CR TABLET Take 1 tablet by mouth 2 times daily with meals for 5 days. Discontinued Medications No medications on file An After Visit Summary was printed and given to the patient with above information. . . Toi Burt MD 03/07/23 1282 [facility]01-20-2023 Miscellaneous Notes* Telephone Encounter - Marianna Montalvo LPN - 08/21/2022 11:18 AM EST Pt called back and states she will not be coming here any longer. Pt has moved and her phone and address has been updated. Pt is working on getting a doctor closer to where she lives. Declined to schedule a follow up here. Marianna Montalvo LPN * Telephone Encounter - Thuan Cody Ma - 08/21/2022 10:30 AM EST TC to patient - Line rings busy. [employer] message sent to patient asking to reach out to the office. Thuan Cody Ma * Telephone Encounter - Lilo Taylor LPN - 08/14/2022 11:24 AM EST 2 nd attempt. Called [facility] supervisor case loading again today. Vice mail full unable to leave message. Called pts phone busy. Will need to try again. * Telephone Encounter - Lilo Taylor LPN - 08/12/2022 10:28 AM EST Attempted to call Lo zhu in regards to below. Mailbox is full. Pts home number busy . We will need to try back. * Telephone Encounter - Brianda Hobson APRN.CNP - 08/12/2022 8:04 AM EST Where is this hospital located? The last time I saw Damaris, she told me she was moving to [place]. Can we confirm this? And if she was having vaginal bleeding and dysuria, I would recommend she see [facility]. Brianda Hobson APRN.BEATRICE * Telephone Encounter - Winston Ruiz DO - 08/12/2022 7:21 AM EST Noted., please make sure she has a follow up with our team Winston Ruiz DO * Telephone Encounter - Nicol Cage RN - 08/10/2022 10:54 AM EST Lo a supervisor case loading with [facility] calling to update PCP that pt was seen at [facility] ER on 07/30/22 for vaginal bleeding and dysuria. Lo states she has been unable to reach patient and wanted to update PCP of this. Nicol Cage RN documented in this encounterMercy [facility]10-26-2022 Instructions* Patient Instructions* Brianda Hobson APRN.CNP - 05/27/2022 3:47 PM EDT Schedule with functional medicine. documented in this encounterMercy Health St. [facility]10-26-2022 History of Present illness Narrative* Brianda Hobson APRN.CNP - 05/27/2022 2:37 PM EDT Chief Complaint Patient presents with: Nausea: X 4 days Pain, Back: Lower right side HPI Damaris Dykes is a 37 year old female who presents here today for Above Complaints. Today: Right mid to lower back pain. Is not reproducible. Chronic nausea. Has been losing weight for a year and a half. Is hungry, but cannot eat because of the nausea. Feels that no one cares about her and the medical community is letting her down because there is something wrong with her and no one wants to try to figure it out. Has seen [facility], GI, had a colonoscopy, lab work, imaging, all of which were essentially normal. Past medical history, appointments, medications, allergies reviewed. Previous Medical History PAST MEDICAL HISTORY Diagnosis Date Abnormal glandular Papanicolaou smear of cervix Abn. 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 Suicidal ideation 10/2013, 06/2014 Tetrahydrocannabinol (THC) use disorder, mild, abuse Thyroid nodule Vitamin D deficiency 03/2014 Previous Surgical History PAST SURGICAL HISTORY Procedure Laterality Date ABDOMINAL SURGERY HX COLONOSCOPY 11/10/2021 COLPOSCOPY CERVIX UPPER/ADJACENT VAGINA Colposcopy EGD W/O BRSH SPEC VARICIES INJ 11/10/2021 ESOPHAGOGASTRODUODENOSCOPY TRANSORAL DIAGNOSTIC 02/24/2021 HYSTEROSCOPY 02/18/2017 D&C, hysteroscopy and IUD removal / reinsertion LAPS SURG CHOLECYSTECTOMY W/CHOLANGIOGRAPHY 08/23/2007 OTHER bilateral plantar fasciectomy PAST SURGICAL HISTORY OF 07/2008 L lung surgery- TEETH COMPLETE 2006 ? peridontal disease THORACENTESIS 03/21/2008 Family History FAMILY HISTORY Problem Relation Age of Onset Asthma Mother with atopy Diabetes Mother edentulous Hypertension Mother Psychiatry Mother Stroke Mother Thyroid Mother other (fibromyalgia) Mother other (sleep apnea) Mother RLS other (peripheral vascular disease) Mother Hypertension Father other (Peripheral vascular Disease) Father Alzheimer's Disease Maternal Grandmother COPD Maternal Grandmother Coronary Artery Disease Maternal Grandmother [place] Diabetes Maternal Grandmother Emphysema Maternal Grandmother Heart Maternal Grandmother other (RA) Maternal Grandmother Breast Cancer Paternal Grandmother Asthma Brother with atopy Patient Allergies ALLERGIES Allergen Reactions Adhesive Tape (Karen* blisters Remeron [Mirtazapin* Mental Status Change Current Medications Current Outpatient Medications on File Prior to Visit Medication Sig pantoprazole DR (PROTONIX) 40 mg tablet In the morning, TAKE 1 TABLET DAILY ON EMPTY STOMACH potassium chloride 20 mEq/15 mL solution TAKE 15ML BY MOUTH DAILY (Patient not taking: Reported on 05/27/2022) cyanocobalamin (VITAMIN B-12) 1,000 mcg tab Take 1,000 mcg by mouth once daily. (Patient not taking: Reported on 05/27/2022) cholecalciferol, vitamin D3, 10 mcg (400 unit) cap Take 400 Units by mouth once daily. (Patient nottaking: Reported on 05/27/2022) [id number] 18 mg iron-800 mcg-290 mg cppt Take by mouth. (Patient not taking: Reported on 05/27/2022) POTASSIUM-99 ORAL Take by mouth. (Patient not taking: No sig reported) medroxyPROGESTERone (DEPO-PROVERA) 150 mg/mL injection Inject 1 mL intramuscularly every 12 weeks. (Patient not taking: Reported on 05/27/2022) Current Facility-Administered Medications on File Prior to Visit Medication medroxyPROGESTERone 150 mg injection (DEPO-PROVERA) Social History Social History Tobacco Use Smoking status: Every Day Packs/day: 1.00 Years: 22.00 Pack years: 22.00 Types: Cigarettes Last attempt to quit: 08/26/2018 Years since quittin.7 Smokeless tobacco: Never Vaping Use Vaping Use: Never used Substance Use Topics Alcohol use: No Drug use: Yes Types: Marijuana Comment: Medical marijuana card, stopped using 01-27-2022, states Review of Symptoms REVIEW OF SYSTEMS See HPI, otherwise negative EXAM: BP 124/80 (BP Site: Left Arm, BP Position: Sitting, BP Cuff Size: Regular Adult) Pulse 90 Temp 36.6 C (97.9 F) (Temporal) Resp 16 Wt 115.2 kg (254 lb) LMP 07/14/2021 SpO2 96% BMI 36.45 kg/m General Appearance: Well appearing, alert, in no acute distress, well-hydrated, well nourished. andObese. Psychiatric: tearful, angry, abrasive. Health Maintenance List PNEUMOCOCCAL(1 - PCV) Never done DTAP,TDAP,TD(1 - Tdap) Never done INFLUENZA(1) due on 04/02/2022 COVID-19 VACCINE(1) due on 12/09/2022 ANNUAL PCP TEAM CHRONIC DISEASE VISIT due on 12/24/2022 BP CONTROLLED (<130/80) due on 02/23/2023 PAP TESTING due on 02/23/2027 HPV TESTING due on 02/23/2027 HEPATITIS B Completed HEPATITIS C SCREENING Completed HIV SCREENING Completed Data reviewed Previous records, office notes ASSESSMENT/PLAN: 1. Nausea - ICD9: 787.02, ICD10: R11.0 (primary diagnosis) - UA DIP, URINE (POC) - HCG QUAL UR - TOX SCREEN ROUT UR - PAIN PANEL, UR QUANT - CONSULT TO FUNCTIONAL MEDICINE - PROMETHAZINE 12.5 MG TABLET - PAIN PANEL, UR QUANT - SPECIMEN VALIDITY, URINE - LORAZEPAM 0.5 MG TABLET 2. Generalized abdominal pain - ICD9: 789.07, ICD10: R10.84 - CONSULT TO FUNCTIONAL MEDICINE - PROMETHAZINE 12.5 MG TABLET 3. Weight loss, unintentional - ICD9: 783.21, ICD10: R63.4 - CONSULT TO FUNCTIONAL MEDICINE 4. Medical marijuana use - ICD9: V58.69, ICD10: Z79.899 - TOX SCREEN ROUT UR - PAIN PANEL, UR QUANT - CONSULT TO FUNCTIONAL MEDICINE - PAIN PANEL, UR QUANT - SPECIMEN VALIDITY, URINE 5. Fatigue, unspecified type - ICD9: 780.79, ICD10: R53.83 - CONSULT TO FUNCTIONAL MEDICINE 6. Early satiety - ICD9: 780.94, ICD10: R68.81 - CONSULT TO FUNCTIONAL MEDICINE - PROMETHAZINE 12.5 MG TABLET 7. Bloating - ICD9: 787.3, ICD10: R14.0 - CONSULT TO FUNCTIONAL MEDICINE - PROMETHAZINE 12.5 MG TABLET 8. Anxiety with depression - ICD9: 300.4, ICD10: F41.8 - LORAZEPAM 0.5 MG TABLET Brianda Hobson APRN.BEATRICE Limited assessment today. Greater than 50% of 60-minute visit spent face to face with patient in counseling and education. documented in this encounterMercy Health [facility]. [facility]10-26-2022 Miscellaneous Notes* Telephone Encounter - Katerina Holley RN - 05/27/2022 9:06 AM EDT Patient calls to report increased nausea over past 4 days. Nurse triage completed. Protocol recommends see provider within 3 days. Patient requesting to be sen today and requesting appointment with Brianda. Appointment scheduled per request. Care advice reviewed. Patient verbalizes understanding. Reason for Disposition Nausea lasts > 1 week Answer Assessment - Initial Assessment Questions 1. NAUSEA SEVERITY: - MODERATE: decreased oral intake without significant weight loss, dehydration,or malnutrition 2. ONSET: 4 days of increased nausea. Patient reports it has been on-going for a year now. 3. VOMITING: Feels like could vomit but hasn't 4. RECURRENT SYMPTOM: A year ago mainly in the mornings but past 4 days occurring throughout the day. Patient has tried Zofran with no relief. 5. CAUSE: Not certain but has history of weight loss with no known cause over the past year. Patient reports some vitamin deficiency in the past as well. 6. : Patient doesn't think so she is currently on menses. Protocols used: [id number] documented in this encounterMercy Health St. [facility]09-12-2022 Miscellaneous Notes* Telephone Encounter - Eri Ley LPN - 04/13/2022 3:01 PM EDT Patient phones requesting refills as follows: Requested Prescriptions Pending Prescriptions Disp Refills potassium chloride 20 mEq/15 mL solution [Pharmacy Med Name: Potassium Chloride 20 MEQ/15ML(10%) SOLN] 473 mL 2 Sig: TAKE 15ML BY MOUTH DAILY ZHANE 12/24/21 NOV no upcoming appt noted Please review and advise. Eri Ley LPN documented in this encounterMercy Health St. [facility]07-25-2022 History of Present illness Narrative* Mauro Spain MD - 02/23/2022 8:20 AM EDT Mauro Spain MD Department of Orthopaedics Orthopaedics [address] [place] [id number] Dept: [phone] Dept February 23, 2022 CHIEF COMPLAINT: New of the Right Hand, New of the Left Hand, and bilateral CTS (EMG/NCV 02-18-2021) HPI Pt. states she has had CTS symptoms for over a year, that went away and returned about a month ago.In fact, she states she hurts all over and all the joints and muscles in her body ache. She is on SSI for mental issues. She is right hand dominant. She denies repetitive motion with hands and states she has been sick for over a year and has lost 140 lbs.because she cannot eat and has potassium d eficiency. She was told by Dr. ruiz that she is out of her scope. She has not seen contract design agent. AMB ROOMING INTAKE FLOWSHEET DATA Pain Pain Level: (4-8) Pain Location: (bilateral hands) Description: Numbness, Aching, Burning, Sharp Duration Amount of Time: 1 Duration Units: Years Frequency: Continuous Intervention/Comfort measure: Medication, Splinting Comments: ibuprofen, Aleve, srist splints no longer help ASSESSMENT: G56.03 Bilateral carpal tunnel syndrome (primary encounter diagnosis) PLAN: Patient, from the moment I sat down and said luly was combative. I just simply asked about her carpal tunnel symptoms and she said she cannot believe all of these medical doctors not taking care of her. She stated that her whole entire body hurts and what am I going to do about it. I replied by telling her that her appointment today was for her carpal tunnel symptoms and her positive nerve test from last year which she stated she has had this for over a year and nobody has done anything about it even though this is the first time I have been seeing her for this problem. She then got up and left. FOLLOW UP INSTRUCTIONS: Follow-up as needed Ms. Damaris Dykes was advised as to contrast therapies and/or to take analgesics/anti-inflammatories as needed and all contraindications were reviewed. OBJECTIVE: Ms. Damaris Dykes is a pleasant 36 year old in mental distress. Gen:LMP 07/14/2021 No exam was done today as she left. IMAGING: This is an abnormal electrodiagnostic evaluation of the right upper extremity with additional studyof the left upper extremity which reveals: 1. Evidence of a median mononeuropathy at or distal to wrist present in the bilateral upper extremities which is moderate in degree electrically on the right and mild in degree on the left. The findings are compatible with a clinical diagnosis of bilateral carpal tunnel syndrome. 2. No electrodiagnostic evidence of a right cervical (C5-C8) radiculopathy. 3. Normal ulnar and radial nerve conduction studies performed above. Supporting Subjective Information Below: Past Medical History: PAST MEDICAL HISTORY Diagnosis Date Abnormal glandular Papanicolaou smear of cervix Abn. 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 Suicidal ideation 10/2013, 06/2014 Tetrahydrocannabinol (THC) use disorder, mild, abuse Thyroid nodule Vitamin D deficiency 03/2014 Past Surgical History: PAST SURGICAL HISTORY Procedure Laterality Date ABDOMINAL SURGERY HX COLONOSCOPY 11/10/2021 COLPOSCOPY CERVIX UPPER/ADJACENT VAGINA Colposcopy EGD W/O BRSH SPEC VARICIES INJ 11/10/2021 ESOPHAGOGASTRODUODENOSCOPY TRANSORAL DIAGNOSTIC 02/24/2021 HYSTEROSCOPY 02/18/2017 D&C, hysteroscopy and IUD removal / reinsertion LAPS SURG CHOLECYSTECTOMY W/CHOLANGIOGRAPHY 08/23/2007 OTHER bilateral plantar fasciectomy PAST SURGICAL HISTORY OF 07/2008 L lung surgery- TEETH COMPLETE 2006 ? peridontal disease THORACENTESIS 03/21/2008 Family History: FAMILY HISTORY Problem Relation Age of Onset Asthma Mother with atopy Diabetes Mother edentulous Hypertension Mother Psychiatry Mother Stroke Mother Thyroid Mother other (fibromyalgia) Mother other (sleep apnea) Mother RLS other (peripheral vascular disease) Mother Hypertension Father other (Peripheral vascular Disease) Father Alzheimer's Disease Maternal Grandmother COPD Maternal Grandmother Coronary Artery Disease Maternal Grandmother [place] Diabetes Maternal Grandmother Emphysema Maternal Grandmother Heart Maternal Grandmother other (RA) Maternal Grandmother Breast Cancer Paternal Grandmother Asthma Brother with atopy Social History: Social History Tobacco Use Smoking status: Current Every Day Smoker Packs/day: 1.00 Years: 22.00 Pack years: 22.00 Types: Cigarettes Last attempt to quit: 08/26/2018 Years since quittin.4 Smokeless tobacco: Never Used Vaping Use Vaping Use: Never used Substance Use Topics Alcohol use: No Drug use: Yes Types: Marijuana Comment: Medical marijuana card Medications: Current Outpatient Medications Medication Sig potassium chloride 20 mEq/15 mL solution Take 15 mL by mouth once daily. cyanocobalamin (VITAMIN B-12) 1,000 mcg tab Take 1,000 mcg by mouth once daily. cholecalciferol, vitamin D3, (VITAMIN D-3) 10 mcg (400 unit) cap Take 400 Units by mouth once daily. [id number] 18 mg iron-800 mcg-290 mg cppt Take by mouth. POTASSIUM-99 ORAL Take by mouth. medroxyPROGESTERone (DEPO-PROVERA) 150 mg/mL injection Inject 1 mL intramuscularly every [address] (PROTONIX) 40 mg tablet In the morning, TAKE 1 TABLET DAILY ON EMPTY STOMACH Current Facility-Administered Medications Medication Dose Route Frequency medroxyPROGESTERone 150 mg injection (DEPO-PROVERA) 150 mg INTRAMUSCULAR every 12 weeks Allergies: Adhesive Tape (Rosins) and Remeron [Mirtazapine] ROS: General (negative for fatigue, malaise, weight loss/gain) HEENT (negative for headache, earache, recent vision changes, sinus pain, sore throat) Respiratory (no recent shortness of breath, hemoptysis) CV (negative for chest tightness, palpitations) Musculoskeletal (see HPI) Psych (no depression, anxiety) REFERRING PHYSICIAN: Ms. Damaris Dykes was referred to [place] for consultation by the following physician. This consultation note will be sent to the following physician by either mail or electronic medical record. Mauro Spain [address] [facility] [address] Winston Ruiz DO [address] [facility] [id number] Mauro Spain MD documented in this encounterMercy Health St. [facility]07-25-2022 History of Present illness Narrative* Jennifer Marinelli APRN.CENTRAL SUPPLY MANAGER - 02/23/2022 6:52 AM EDT Website Admin offered: Patient declines. Cedeño is a 36 year old who presents for an annual gynecologic exam without complaints. Menses: On Depo, so she does not get a period, when she does she bleeds for a long period of time. Contraception: Depo Provera HPV vaccine: No Last Pap: 11/11/2016 normal HPV: 11/11/2016 negative History of abnormal pap: No Last mammogram: scheduled in March Sexually active: Yes History of STDS: HPV when younger Patient concerns for STD exposure: No. 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 Pap smear (cervix) Arthritis Closed dislocation of knee, unspecified part left Depression [facility], Counseling center Julia Mujica CNP DJD (degenerative joint disease), lumbar Essential hypertension 09/20/2020 Heel spur Hypertriglyceridemia 03/2014 Impaired fasting glucose Methamphetamine abuse (HCC) Obesity, unspecified Obstructive sleep apnea on CPAP Other specified disorder of gallbladder Pleurisy without mention of effusion or current tuberculosis Pleurisy Social phobia [facility], Counseling center Julia Mujica CNP Suicidal ideation 10/2013, 06/2014 Tetrahydrocannabinol (THC) use disorder, mild, abuse Thyroid nodule Vitamin D deficiency 03/2014 PAST SURGICAL HISTORY Procedure Laterality Date ABDOMINAL SURGERY HX COLONOSCOPY 11/10/2021 COLPOSCOPY CERVIX UPPER/ADJACENT VAGINA Colposcopy EGD W/O BRSH SPEC VARICIES INJ 11/10/2021 ESOPHAGOGASTRODUODENOSCOPY TRANSORAL DIAGNOSTIC 02/24/2021 HYSTEROSCOPY 02/18/2017 D&C, hysteroscopy and IUD removal / reinsertion LAPS SURG CHOLECYSTECTOMY W/CHOLANGIOGRAPHY 08/23/2007 OTHER bilateral plantar fasciectomy PAST SURGICAL HISTORY OF 07/2008 L lung surgery- TEETH COMPLETE 2006 ? peridontal disease THORACENTESIS 03/21/2008 FAMILY HISTORY Problem Relation Age of Onset Asthma Mother with atopy Diabetes Mother edentulous Hypertension Mother Psychiatry Mother Stroke Mother Thyroid Mother other (fibromyalgia) Mother other (sleep apnea) Mother RLS other (peripheral vascular disease) Mother Hypertension Father other (Peripheral vascular Disease) Father Alzheimer's Disease Maternal Grandmother COPD Maternal Grandmother Coronary Artery Disease Maternal Grandmother [place] Diabetes Maternal Grandmother Emphysema Maternal Grandmother Heart Maternal Grandmother other (RA) Maternal Grandmother Breast Cancer Paternal Grandmother Asthma Brother with atopy SOCIAL HISTORY Social History Tobacco Use Smoking status: Current Every Day Smoker Packs/day: 1.00 Years: 22.00 Pack years: 22.00 Types: Cigarettes Last attempt to quit: 08/26/2018 Years since quittin.4 Smokeless tobacco: Never Used Vaping Use Vaping Use: Never used Substance Use Topics Alcohol use: No Drug use: Yes Types: Marijuana Comment: Medical marijuana card REVIEW OF SYSTEMS Abdomen: No abdominal pain, nausea, vomiting, diarrhea, or constipation. No bloating, early satiety, indigestion, or increased flatulence. Bladder: No dysuria, gross hematuria, urinary frequency, urinary urgency, or incontinence. Breast: No breast lumps, nipple d/c, overlying skin changes, redness or skin retraction. Allergies and current medication updated:Yes EXAM: BP 108/70 Wt 269 lb (122.0kg) LMP 07/14/2021 GENERAL: pleasant, female in no apparent distress HEENT: Normocephalic, atraumatic, mucus membranes moist and no lesions NECK: full range of motion DERMATOLOGY: Normal, without lesions, non-icteric and non-hirsute BREAST: soft, non-tender, symmetric, no dominant mass, normal nipple-areolar complex, no lymphadenopathy and no nipple discharge CHEST: Normal inspiratory effort ABDOMEN: soft and no masses PELVIC: external genitalia normal, normal Bartholin's glands, urethra, Osino's glands, no vulvar lesions, no cervical lesions, good vaginal support, physiologic discharge present, normal appearing perineal body and perianal region BIMANUAL: uterus normal size, shape and consistency, no adnexal masses NEURO: alert and oriented x3,exam grossly non-focal EXTREMITIES: normal ASSESSMENT/PLAN: 1) Health maintenance: Pap done with HPV. 2) Contraception: Depo Provera. Contraceptive options reviewed and information provided. 3) STD screening: Declined STD check. 4) Follow up one year or sooner as needed Daya Hameed. ANSELMO student TEACHING PROVIDER (Physician/PA/TIRE INSTALLER) NOTE OF PERSONAL INVOLVEMENT IN CARE: I have personally seen and examined the patient and performed the medical decision-making components. I have reviewed the Advanced Practice Registered Nurse (TIRE INSTALLER) Student's documentation and verified the findings in the note as written. Any additions or changes are noted in bold/italics. Signature: Jennifer Marinelli Date: 02/23/2022 Time: 7:29 AM documented in this encounterMercy Health St. [facility]07-19-2022 Instructions* Patient Instructions* Jennifer Marinelli APRN.CNP - 02/17/2022 9:44 AM EDT Management of Benign Breast Pain / Fibrocystic Changes Decrease or avoid intake of caffeine, including coffee, teas, sodas, and chocolate. Decrease or avoid nicotine. Wear a support or sports (not underwire) bra. Take [id number]-icjtgqw ibuprofen (Advil/Motrin) or other NSAIDs, such as naproxen (Aleve). Take 3 grams (3000 mg.) of evening primrose oil (available [id number]) in divided doses for 2months. Take warm showers. Use warm compresses. documented in this encounterMercy Health St. [facility]07-19-2022 History of Present illness Narrative* Jennifer Marinelli APRN.CNP - 02/17/2022 8:56 AM EDT BREAST LUMP HISTORY: This is a 36 year old female Presents with mastalgia bilaterally Tenderness Yes, bilaterally Change in sizeNo Any history breast mass No Caffeine use Yes, 3/4 of [address] Harman daily Last mammogramnever Bilateral pain and tenderness started 1 week ago. She reports that she feels large amount of pressure and tightness in bilateral breasts. She reports history of irregular bleeding and menstrual cycles. Any previous breast surgery No Any family history breast disease/ breast cancer No OB History T2 L2 SAB0 IAB0 Ectopic0 Multiple0 Live Births2 PAST MEDICAL HISTORY Diagnosis Date Abnormal glandular Papanicolaou smear of cervix Abn. Pap smear (cervix) Arthritis Closed dislocation of knee, unspecified part left Depression MDD, Counseling center Julia Mujica CNP DJD (degenerative joint disease), lumbar Essential hypertension 09/20/2020 Heel spur Hypertriglyceridemia 03/2014 Impaired fasting glucose Methamphetamine abuse (HCC) Obesity, unspecified Obstructive sleep apnea on CPAP Other specified disorder of gallbladder Pleurisy without mention of effusion or current tuberculosis Pleurisy Social phobia MDD, Counseling center Julia Mujica CNP Suicidal ideation 10/2013, 06/2014 Tetrahydrocannabinol (THC) use disorder, mild, abuse Thyroid nodule Vitamin D deficiency 03/2014 PAST SURGICAL HISTORY Procedure Laterality Date ABDOMINAL SURGERY HX COLONOSCOPY 11/10/2021 COLPOSCOPY CERVIX UPPER/ADJACENT VAGINA Colposcopy EGD W/O BRSH SPEC VARICIES INJ 11/10/2021 ESOPHAGOGASTRODUODENOSCOPY TRANSORAL DIAGNOSTIC 02/24/2021 HYSTEROSCOPY 02/18/2017 D&C, hysteroscopy and IUD removal / reinsertion LAPS SURG CHOLECYSTECTOMY W/CHOLANGIOGRAPHY 08/23/2007 OTHER bilateral plantar fasciectomy PAST SURGICAL HISTORY OF 07/2008 L lung surgery- TEETH COMPLETE 2006 ? peridontal disease THORACENTESIS 03/21/2008 FAMILY HISTORY Problem Relation Age of Onset Asthma Mother with atopy Diabetes Mother edentulous Hypertension Mother Psychiatry Mother Stroke Mother Thyroid Mother other (fibromyalgia) Mother other (sleep apnea) Mother RLS other (peripheral vascular disease) Mother Hypertension Father other (Peripheral vascular Disease) Father Alzheimer's Disease Maternal Grandmother COPD Maternal Grandmother Coronary Artery Disease Maternal Grandmother [place] Diabetes Maternal Grandmother Emphysema Maternal Grandmother Heart Maternal Grandmother other (RA) Maternal Grandmother Breast Cancer Paternal Grandmother Asthma Brother with atopy SOCIAL HISTORY Social History Tobacco Use Smoking status: Current Every Day Smoker Packs/day: 1.00 Years: 22.00 Pack years: 22.00 Types: Cigarettes Last attempt to quit: 08/26/2018 Years since quittin.4 Smokeless tobacco: Never Used Vaping Use Vaping Use: Never used Substance Use Topics Alcohol use: No Drug use: Yes Types: Marijuana Comment: Medical marijuana card PAST SURGICAL HISTORY Procedure Laterality Date ABDOMINAL SURGERY HX COLONOSCOPY 11/10/2021 COLPOSCOPY CERVIX UPPER/ADJACENT VAGINA Colposcopy EGD W/O [facility] SPEC VARICIES INJ 11/10/2021 ESOPHAGOGASTRODUODENOSCOPY TRANSORAL DIAGNOSTIC 02/24/2021 HYSTEROSCOPY 02/18/2017 D&C, hysteroscopy and IUD removal / reinsertion LAPS SURG CHOLECYSTECTOMY W/CHOLANGIOGRAPHY 08/23/2007 OTHER bilateral plantar fasciectomy PAST SURGICAL HISTORY OF 07/2008 L lung surgery- TEETH COMPLETE 2006 ? peridontal disease THORACENTESIS 03/21/2008 Current Outpatient Medications Medication Sig cyanocobalamin (VITAMIN B-12) 1,000 mcg tab Take 1,000 mcg by mouth once daily. cholecalciferol, vitamin D3, (VITAMIN D-3) 10 mcg (400 unit) cap Take 400 Units by mouth once daily. [id number] 18 mg iron-800 mcg-290 mg cppt Take by mouth. POTASSIUM-99 ORAL Take by mouth. medroxyPROGESTERone (DEPO-PROVERA) 150 mg/mL injection Inject 1 mL intramuscularly every [address] (PROTONIX) 40 mg tablet In the morning, TAKE 1 TABLET DAILY ON EMPTY STOMACH potassium chloride 20 mEq/15 mL solution Take 15 mL by mouth once daily. Current Facility-Administered Medications Medication Dose Route Frequency medroxyPROGESTERone 150 mg injection (DEPO-PROVERA) 150 mg INTRAMUSCULAR every 12 weeks Allergies As of Date: 02/17/2022 Allergen Noted Reaction ADHESIVE TAPE (ROSINS) 10/17/2008 REMERON [MIRTAZAPINE] 01/12/2011 Mental Status Change Fully Assessed 02/17/2022 EXAMINATION: There is no concerning cervical, supraclavicular, or axillary lymphadenopathy. She has bilateral fibrocystic changes. On the left are no dominant masses, skin changes or nipple discharge. On the right there is fibrocysytic changes but no skin changes or nipple discharge. IMPRESSION: bilateral fibrocystic breast changes PLAN: Office Visit on 02/17/22 [facility] BILAT US BREAST LTD LT US BREAST LTD RT PELVIC US WHI A discussion was held with the patient who agrees with Imaging -Pelvic ultrasound ordered today with instruction how to schedule. -Mammogram with ultrasound ordered today with instruction how to schedule. -Discussed high caffeine consumption and breast pain. -Discussed scheduling annual appointment and bringing in Depo shot for injection. Daya Hameed APRN student TEACHING PROVIDER (Physician/PA/TIRE INSTALLER) NOTE OF PERSONAL INVOLVEMENT IN CARE: I have personally seen and examined the patient and performed the medical decision-making components. I have reviewed the Advanced Practice Registered Nurse (TIRE INSTALLER) Student's documentation and verified the findings in the note as written. Any additions or changes are noted in bold/italics. Signature: Jennifer Marinelli Date: 02/17/2022 Time: 10:16 AM Medical Decision Making: Problems: Low: Acute, uncomplicated illness or injury Data: Unique test(s) ordered: 3+ Risk: Low: Low risk from testing/treatment Medical Decision Making Level: 3 - Low documented in this encounterMer[facility]07-18-2022 Miscellaneous Notes* Telephone Encounter - Sujatha Horta APRN.BEATRICE - 02/16/2022 7:22 AM EDT Noted. Thank you. Sujatha Horta APRN.CNP * Telephone Encounter - Silvana Lewis Ma - 02/13/2022 1:13 PM EDT Pt informed, verbalized understanding. Pt reports she hasn't gotten testing completed because she doesn't feel like it's necessary. She will call office if interested. Silvana Lewis Ma * Telephone Encounter - Sujatha Horta APRN.CNP - 02/13/2022 10:32 AM EDT The following approved medication requests have been transmitted electronically. Signed Prescriptions Disp Refills potassium chloride 20 mEq/15 mL solution 473 mL 2 Sig: Take 15 mL by mouth once daily. Authorizing Provider: SUJATHA HORTA APRN.CNP * Telephone Encounter - Sujatha Horta APRN.CNP - 02/13/2022 10:25 AM EDT I can send over potassium in liquid form versus the large tablets. I have this [facility] to [facility]. Take 15mL daily. Then recheck potassium levels in 3 weeks. These symptoms are ongoing and chronic. I see from recent office visit on 01/02/[address] Medeiros that the plan was to discuss pelvic floor dysfunction and to see colorectal surgery due to need for colonoscopy. I don't see that this was completed so I recommend starting there. I can put in order for pelvic floor therapy if that is something she is interested in. Sujatha Horta APRN.CNP * Telephone Encounter - Riya García LPN - 02/13/2022 9:51 AM EDT Patient called in, states that she was not able to take the potasium due to the size. She has been taking Natures made potassium 99mg 2 daily. States that she is still not feeling well. She is nauseous, vomiting, diarrhea, muscle spasms, and pain every where. States that she has lost 130 lbs and does not feel well. Asking if any of the other lab work could indicate why she is feeling this way. States that she saw other things flagged but does not know what it could mean. Please advise. * Telephone Encounter - Sujatha Horta APRN.CNP - 02/13/2022 7:35 AM EDT Please call patient and let her know that blood work results look good! Potassium level is very low. I see from her medication list she is not taking her potassium chloride 20 mEq daily anymore. Please have her routinely take this and we can recheck potassium level in 2-3 weeks. Her lipid panel remains stable. Triglycerides were elevated.. was patient fasting for this blood work? If so, I recommend adjusting diet to incorporate more lean protein and green leafy vegetables. Otherwise, everything else is normal. Thank you, Sujatha Horta APRN.CENTRAL SUPPLY MANAGER documented in this encounterMercy Health St. [facility]06-04-2022 History of Present illness Narrative* Lizandro Medeiros MD - 01/03/2022 7:57 AM EDT Subjective: Patient is scheduled to see colorectal surgery in [place] next week. Had a significant amount of discomfort this past weekend to go to 2 different emergency rooms she was complaining of some burning irritation in the anal area she had a CAT scan done at [facility] which did not show any signs of constipation or obstipation no masses. I was unable to complete her colonoscopy when I did her at [facility] secondary to not being able to keep her sedated enough. Patient has been having a significant amount of anal leakage difficulty controlling her bowels and has also noticed that she has been having some anal prolapse at times. Objective:Blood pressure 106/70, pulse 103, temperature 36.8 C (98.2 F), height 177.8 cm (5' 10), weight 128.4 kg (283 lb), last menstrual period 07/14/2021, SpO2 97 %. Anal exam shows no signs of irritation there is no fissures there is no masses there is no signs ofcellulitis or abscess formation. Assessment:Diarrhea, unspecified type (primary encounter diagnosis) Anal prolapse Abnormal weight loss Plan: She will be seeing colorectal surgery. She probably has some form of pelvic floor dysfunctionand will need to have this worked up in addition to having her colorectal surgeon performed a colonoscopy which I was unable to complete. documented in this encounterMercy [facility] St. [facility]06-02-2022 Miscellaneous Notes* Telephone Encounter - Lilo Taylor LPN - 01/01/2022 10:50 AM EDT T/C left detailed message with all information below on Lo's confidential voice mail. * Telephone Encounter - Brianda Hobson APRN.CNP - 01/01/2022 10:24 AM EDT She is following up with general surgery, as she is known to them, and the reason for her ED visitsare r/t concerns they are addressing. Brianda Hobson APRN.CNP * Telephone Encounter - Lo Tafoya LPN - 01/01/2022 9:32 AM EDT Lo from [facility] calling to update PCP that patient was in [facility] ER on 12/31 and [facility] ER on 01/01. She was checking to see if patient had ER follow up appt. Computer shows appt with GeneralSurgery follow up. documented in this encounterMer[facility]06-01-2022 Miscellaneous Notes* Telephone Encounter - Lilo Taylor LPN - 12/31/2021 4:03 PM EDT Spoke with pt gave information provided. She voices understanding. * Telephone Encounter - Winston Ruiz DO - 12/31/2021 3:55 PM EDT Yes, she can take the magnesium citrate medication to see if this helps her constipation symptoms. Also needs to follow up with [facility] physician SALONI for evaluation further since her symptoms are beyond my ability to determine cause with the work up that she has had. Winston Ruiz DO * Telephone Encounter - Nicol Cage RN - 12/31/2021 10:26 AM EDT Patient calling with an update since last message this morning. She states she went to [facility] ER this morning and states she was there for about 5 minutes, the doctor was rude to her and not very helpful. She reports they gave her a script for magnesium citrate and was sent home and she is unsure if she should take this. She reports the ER stated could do blood work but patient told them this has been ordered for her already-but has not been completed yet. Please advise. Thank you. * Telephone Encounter - Iliana Gonzalez RN - 12/31/2021 8:49 AM EDT Patient calls and states that she has been constipated since her appointment on 12/24/2021. Patientreports that she can't eat anything more than 1/2 cup of food per day due to swallow issues. Patient reports that she drinks little. Patient states that she does continue to vomit. Patient had taken 2 Dulcolax tablets on the evening of 12/29/2021. On 12/30/2021, Patient took 2 Dulcolax tablets in am, 2 Dulcolax tablets in the afternoon, and 2 Dulcolax tablets in evening. Patient is supposed to get a stool sample for labs, but only was able to obtain a small blood stool. Patient reports that she noticed a small blue spot on one of her finger knuckles, which was swollenat the knuckle palm side. Patient did have pain in this knuckle but pain isn't as bad now. Patient was advised by provider on 12/26/2021 that it was reccommended that patient go to ER to be evaluated due to vomiting. Patient advised of this again, but currently declines. Please review and advise, Iliana Gonzalez RN documented in this encounterMercy [facility]. [facility]06-01-2022 Hospital Discharge instructions Patient Education 12/31/2021 10:03:09 Abdominal Pain Abdominal Pain Abdominal pain is pain in the stomach or belly area. Everyone has this pain from time to time. In many cases it goes away on its own. But abdominal pain can sometimes be due to a serious problem, such as appendicitis. So it s important to know when to get help. Causes of abdominal pain There are many possible causes of abdominal pain. Common causes in adults include: Constipation, diarrhea, or gas Stomach acid flowing back up into the esophagus (acid reflux or heartburn) Severe acid reflux, called GERD (gastroesophageal reflux disease) A sore in the lining of the stomach or small intestine (peptic ulcer) Inflammation of the gallbladder, liver, or pancreas Gallstones or kidney stones Appendicitis Intestinal blockage An internal organ pushing through a muscle or other tissue (hernia) Urinary tract infections In women, menstrual cramps, fibroids, ovarian cysts, pelvic inflammatory disease, or endometriosis Inflammation or infection of the intestines, including Crohn's disease and ulcerative colitis Irritable bowel syndrome Diagnosing the cause of abdominal pain Your healthcare provider will give you a physical exam help find the cause of your pain. If needed,you will have tests. Belly pain has many possible causes. So it can be hard to find the reason for your pain. Giving details about your pain can help. Tell your provider where and when you feel the pain, and what makes it better or worse. Also let your provider know if you have other symptoms such as: Fever Tiredness Upset stomach (nausea) Vomiting Changes in bathroom habits Blood in the stool or black, tarry stool Weight loss that you can't explain (involuntary weight loss?) Also report any family history of stomach or intestinal problems, or cancers. Tell your provider about all your alcohol use and drug use. Tell your provider about all medicines you use, including herbs, vitamins, and supplements. Treating abdominal pain Some causes of pain need emergency medical treatment right away. These include appendicitis or a bowel blockage. Other problems can be treated with rest, fluids, or medicines. Your healthcare provider can give you specific instructions for treatment or self-care based on what is causing your pain. If you have vomiting or diarrhea, sip water or other clear fluids. When you are ready to eat solid foods again, start with small amounts of zrzf-kb-buctow, low- fat foods. These include apple sauce, toast, or crackers. When to get medical care Call 911 or go to the hospital right away if you: Can t pass stool and are vomiting Are vomiting blood or have bloody diarrhea or black, tarry diarrhea Have chest, neck, or shoulder pain Feel like you might pass out Have pain in your shoulder blades with nausea Have sudden, severe belly pain Have new, severe pain unlike any you have felt before Have a belly that is rigid, hard, and hurts to touch Call your healthcare provider if you have: Pain for more than 5 days Bloating for more than 2 days Diarrhea for more than 5 days A fever of 100.4 F (38 C) or higher, or as directed by your healthcare provider Pain that gets worse Weight loss for no reason Continued lack of appetite Blood in your stool How to prevent abdominal pain Here are some tips to help prevent abdominal pain: Eat smaller amounts of food at each meal. Don't eat greasy, fried, or other high-fat foods. Don't eat foods that give you gas. Exercise regularly. Drink plenty of fluids. To help prevent GERD symptoms: Quit smoking. Reduce alcohol and foods that increase stomach acid. Don't use aspirin or qnya-hzj-jboqeeq pain and fever medicines, if possible. This includes nonsteroidal anti-inflammatory drugs (NSAIDs). Lose excess weight. Finish eating at least 2 hours before you go to bed or lie down. Raise the head of your bed. 8570-6838 [employer]. [address] [place] [address], [place] [address]. All rights reserved. This information is not intended as a substitute for professional medical care. Always follow yourhealthcare professional's instructions. 12/31/2021 10:02:57 Constipation (Adult) Constipation (Adult) Constipation means that you have bowel movements that are less frequent than usual. Stools often become very hard and difficult to pass. Constipation is very common. At some point in life, it affects almost everyone. Since everyone's bowel habits are different, what is constipation to one person may not be to another. Your healthcare provider may do tests to diagnose constipation. It depends on what he or she finds when evaluating you. Symptoms of constipation include: Abdominal pain Bloating Vomiting Painful bowel movements Itching, swelling, bleeding, or pain around the anus Causes Constipation can have many causes. These include: Diet low in fiber Too much dairy Not drinking enough liquids Lack of exercise or physical activity (especially true for older adults) Changes in lifestyle or daily routine, including , aging, work, and travel Frequent use or misuse of laxatives Ignoring the urge to have a bowel movement or delaying it until later Medicines, such as certain prescription pain medicines, iron supplements, antacids, certain antidepressants, and calcium supplements Diseases like irritable bowel syndrome, bowel obstructions, stroke, diabetes, thyroid disease, Parkinson disease, hemorrhoids, and colon cancer Complications Potential complications of constipation can include: Hemorrhoids Rectal bleeding from hemorrhoids or anal fissures (skin tears) Hernias Dependency on laxatives Chronic constipation Fecal impaction, a severe form of constipation in which a large amount of hard stool is in your rectum that you can't pass Bowel obstruction or perforation Home care All treatment should be done after talking with your healthcare provider. This is especially true if you have another medical problems, are taking prescription medicines, or are an older adult. Treatment most often involves lifestyle changes. You may also need medicines. Your healthcare provider will tell you which will work best for you. Follow the advice below to help avoid this problem in the future. Lifestyle changes These lifestyle changes can help prevent constipation: Diet. Eat a high-fiber diet, with fresh fruit and vegetables, and reduce dairy intake, meats, and processed foods Fluids. It's important to get enough fluids each day. Drink plenty of water when you eat more fiber. If you are on diet that limits the amount of fluid you can have, talk about this with your healthcare provider. Regular exercise. Check with your healthcare provider first. Medicines Take any medicines as directed. Some laxatives are safe to use only every now and then. Others can be taken on a regular basis. While laxatives don't cause bowel dependence, they are treating the symptoms. So your constipation may return if you don't make other changes. Talk with your healthcare provider or pharmacist if you have questions. Prescription pain medicines can cause constipation. If you are taking this kind of medicine, ask your healthcare provider if you should also take a stool softener. Medicines you may take to treat constipation include: Fiber supplements Stool softeners Laxatives Enemas Rectal suppositories Follow-up care Follow up with your healthcare provider if symptoms don't get better in the next few days. You may need to have more tests or see a specialist. Call 911 Call 911 if any of these occur: Trouble breathing Stiff, rigid abdomen that is severely painful to touch Confusion Fainting or loss of consciousness Rapid heart rate Chest pain When to seek medical advice Call your healthcare provider right away if any of these occur: Fever of 100.4 F (38 C) or higher, or as directed by your healthcare provider Failure to resume normal bowel movements Pain in your abdomen or back gets worse Nausea or vomiting Swelling in your abdomen Blood in the stool Black, tarry stool Involuntary weight loss Weakness [id number] [employer]. [address] [place] [address]. All rights reserved. This information is not intended as a substitute for professional medical care. Always follow yourhealthcare professional's instructions. Follow Up Care 12/31/2021 09:36:05 With:Follow up with primary care provider Address:Unknown When:2-4 days With:Go to emergency room if symptoms worsen Address:Unknown When:2-4 days [facility] 05-31-2022 Miscellaneous Notes* Telephone Encounter - Vianca Diego RN - 12/30/2021 11:18 AM EDT Patient notified. Transferred to speak with scheduling. Vianca Highman RN * Telephone Encounter - Salena Solis MD - 12/30/2021 9:13 AM EDT Consult ordered. Please give her info for scheduling> Thanks. Salena Solis MD * Telephone Encounter - Nazario Mclain LPN - 12/30/2021 8:53 AM EDT Pt calling and stated that she is ready to have the consult to Pelvic pain, MIGS. Pt is continuing to have spotting even with her 2nd depo. Please advise. Nazario Mclain LPN documented in this encounterMercy Health St. [facility]05-27-2022 Miscellaneous Notes* Telephone Encounter - Lilo Taylor LPN - 12/26/2021 3:26 PM EDT Spoke with pt gave information provided. Pt voices understanding. * Telephone Encounter - Winston Ruiz DO - 12/26/2021 2:59 PM EDT Would recommend she goes to the hospital to be assessed in the EMERGENCY DEPARTMENT if still vomiting and not able to tolerate oral intake Winston Ruiz DO * Telephone Encounter - Marianna Montalvo LPN - 12/26/2021 12:17 PM EDT Pt called and states she was seen in the office on Wednesday the following has happened since apt. 1. This am 12-26-21 at 9 am she vomited one time a solid large white chunk the size of her whole thumb. Not certain what this could be. She did take a picture, not certain how to get it to you. 2. Pt states her spit is clear bubbles. She is still having the symptoms of nausea and that there may still be something in her that needs to come up. Pt states she tried to take the potassium pills this am and could not get it to go down and all the medications she took came back up. Please advise. Marianna Montalvo LPN documented in this encounterMercy [facility]. [facility]05-27-2022 Miscellaneous Notes* Telephone Encounter - Marianna Montalvo LPN - 12/26/2021 12:12 PM EDT Pt seen 12-25-21. Marianna Montalvo LPN * Telephone Encounter - Deirdre Owen LPN - 12/23/2021 4:11 PM EDT Message left to return call. Deirdre Owen LPN * Telephone Encounter - Winston Ruiz DO - 12/23/2021 3:17 PM EDT Please inform patient that her labs show her Methylmalonic acid and intrinsic factor antibody levels are normal, likely her vitamin B12 deficiency is a nutrient related reason and should be replaced orally, not by injection. Her potassium levels remain slightly low, would recommend starting potassium chloride 20 meq daily and recheck labs in 1 week Winston Ruiz DO The following approved medication requests have been transmitted electronically. Signed Prescriptions Disp Refills potassium chloride 20 mEq TbER 90 tablet 1 Sig: Take 1 tablet by mouth daily with breakfast. Authorizing Provider: WINSTON RUIZ DO documented in this encounterMercy Health St. [facility]05-26-2022 Miscellaneous Notes* Telephone Encounter - Brianda Hobson APRN.BEATRICE - 12/25/2021 11:40 AM EDT Patient saw Dr. Ruiz in the office yesterday 12/24/2021. Brianda Hobson APRN.CNP documented in this encounterMercy Health St. [facility]05-25-2022 History of Present illness Narrative* Winston Ruiz, DO - 12/24/2021 9:26 PM EDT CC: Damaris Dykes is a 36 year old female who presents to the office for follow up HPI: Patient was seen in office on 12/09/21, at that time Patient has had multiple symptoms as below. Headache, started about 5 days ago, Starts at the back of the neck, radiating to the front of the head, throbbing/pressure like, even to the touch, Also radiating down the neck and upper back. Has taken excedrin. Also over the last 1 year is having word finding difficulty, forgetfulness with short term memory concerns such as getting lost when trying to go places. Worsening over the last few Months- she states that her boyfriend has noticed worsening of these symptoms as well. No head injuries.No new medications. Stopped taking all her psychiatric medications for the last 1 year. Visual blurring, difficulty with visual focusing, not double vision, my eyes feel tired all the time. Is now on the depo provera injection, due to heavy prolonged menstrual cycle changes prior (bleeding for 6 months etc). Getting numbness in b/l lower legs, tingling into hands. Has been told has carpal tunnel but hasn't ever had this treated No known fevers or chills. Currently Has had prolonged diarrhea, H pylori gastritis and weight loss, decreased appetite which she statesis unintentional. Has had EGD and partial completed colonoscopy but had difficulty with the anesthesia due to pain control difficulty. Still getting nausea and having vomiting episodes. [place] stro[place] in >1 month for next steps. Has been found to have hypokalemia, low folate, vitamin D deficiency, vitamin B12 deficiency. 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 She states her fatigue and her lack of energy with the diarrhea symptoms is what is causing her to have difficulty with getting things accomplished daily at home. PAST MEDICAL HISTORY Diagnosis Date Abnormal glandular Papanicolaou smear of cervix Abn. Pap smear (cervix) Arthritis Closed dislocation of knee, unspecified part left Depression MDD, [facility]ing [facility]uj[facility] CNP DJD (degenerative joint disease), lumbar Essential hypertension 09/20/2020 Heel spur Hypertriglyceridemia 03/2014 Impaired fasting glucose Methamphetamine abuse (HCC) Obesity, unspecified Obstructive sleep apnea on CPAP Other specified disorder of gallbladder Pleurisy without mention of effusion or current tuberculosis Pleurisy Social phobia MDD, Counseling center [facility]uj[facility] CNP Suicidal ideation 10/2013, 06/2014 Tetrahydrocannabinol (THC) use disorder, mild, abuse Thyroid nodule Vitamin D deficiency 03/2014 PAST SURGICAL HISTORY Procedure Laterality Date ABDOMINAL SURGERY HX COLONOSCOPY 11/10/2021 COLPOSCOPY CERVIX UPPER/ADJACENT VAGINA Colposcopy EGD W/O BRSH SPEC VARICIES INJ 11/10/2021 ESOPHAGOGASTRODUODENOSCOPY TRANSORAL DIAGNOSTIC 02/24/2021 HYSTEROSCOPY 02/18/2017 D&C, hysteroscopy and IUD removal / reinsertion LAPS SURG CHOLECYSTECTOMY W/CHOLANGIOGRAPHY 08/23/2007 OTHER bilateral plantar fasciectomy PAST SURGICAL HISTORY OF 07/2008 L lung surgery- TEETH COMPLETE 2006 ? peridontal disease THORACENTESIS 03/21/2008 Current Outpatient Medications Medication Sig cyanocobalamin (VITAMIN B-12) 1,000 mcg tab Take 1,000 mcg by mouth once daily. cholecalciferol, vitamin D3, (VITAMIN D-3) 10 mcg (400 unit) cap Take 400 Units by mouth once daily. [id number] 18 mg iron-800 mcg-290 mg cppt Take by mouth. POTASSIUM-99 ORAL Take by mouth. pantoprazole DR (PROTONIX) 40 mg tablet In the morning, TAKE 1 TABLET DAILY ON EMPTY STOMACH ondansetron orally disintegrating (ZOFRAN ODT) 4 mg disintegrating tablet Take 1 tablet by mouth every 6 hours as needed for nausea/vomiting. potassium chloride 20 mEq TbER Take 1 tablet by mouth daily with breakfast. medroxyPROGESTERone (DEPO-PROVERA) 150 mg/mL injection Inject 1 mL intramuscularly every 12 weeks. Current Facility-Administered Medications Medication Dose Route Frequency medroxyPROGESTERone 150 mg injection (DEPO-PROVERA) 150 mg INTRAMUSCULAR every 12 weeks perflutren lipid microspheres 1.3 mL in NaCl (PF) 0.9% 10 mL injection (DEFINITY) INTRAVENOUS DIRECTED PRN sodium chloride 0.9 % (flush) 10 mL (BD POSIFLUSH) 10 mL INTRAVENOUS DIRECTED PRN ALLERGIES Allergen Reactions Adhesive Tape (Karen* blisters Remeron [Mirtazapin* Mental Status Change Social History Tobacco Use Smoking status: Current Every Day Smoker Packs/day: 1.00 Years: 22.00 Pack years: 22.00 Types: Cigarettes Last attempt to quit: 08/26/2018 Years since quittin.3 Smokeless tobacco: Never Used Vaping Use Vaping Use: Never used Substance Use Topics Alcohol use: No Drug use: Yes Types: Marijuana Comment: Medical marijuana card ROS: See HPI PE: BP 120/60 Pulse 88 Temp (Src) 97 (Right Tympanic) Resp 16 Wt 290 lb (131.5kg) LMP 07/14/2021 Gen: A&OX3, NAD, non-toxic appearing HEENT: PERRLA, EOMs intact b/l, nares without drainage, pharynx without erythema, exudate, lesions,or drainage. Uvula midline. Neck: No LAD, no thyromegaly, no meningismus. CV: RRR, no murmur Lungs: CTA b/l, no wheezing Skin: No rashes, lesions, or wounds on exposed skin. Fatigued appearing, pale No edema peripheral Abd: obese, bloated appearing, normal Bowel sounds, difficulty to assess for hepatosplenomegaly dueto obesity abdomen ASSESSMENT/PLAN: 1. Diarrhea, unspecified type - ICD9: 787.91, ICD10: R19.7 (primary diagnosis) Needs to follow up with the geothermal hvac technician/general surgeon for consideration of repeat of colonoscopy under sedation as well as consideration of capsule endoscopy and further testing with specialist. I am not sure what is causing her symptoms of multiple vitamin Deficiencies and hypokalemia other than the poor nutrition, diarrhea, weight loss. - OVA + PARA MICROSCOPIC 2. Hypokalemia - ICD9: 276.8, ICD10: E87.6 Needs to follow up with the geothermal hvac technician/general surgeon for consideration of repeat of colonoscopy under sedation as well as consideration of capsule endoscopy and further testing with specialist. I am not sure what is causing her symptoms of multiple vitamin Deficiencies and hypokalemia other than the poor nutrition, diarrhea, weight loss. - COMP METABOLIC PANEL 3. Vitamin B12 deficiency - ICD9: 266.2, ICD10: E53.8 Needs to follow up with the geothermal hvac technician/general surgeon for consideration of repeat of colonoscopy under sedation as well as consideration of capsule endoscopy and further testing with specialist. I am not sure what is causing her symptoms of multiple vitamin Deficiencies and hypokalemia other than the poor nutrition, diarrhea, weight loss. - VITAMIN B12 BLOOD 4. Folate deficiency - ICD9: 266.2, ICD10: E53.8 Needs to follow up with the geothermal hvac technician/general surgeon for consideration of repeat of colonoscopy under sedation as well as consideration of capsule endoscopy and further testing with specialist. I am not sure what is causing her symptoms of multiple vitamin Deficiencies and hypokalemia other than the poor nutrition, diarrhea, weight loss. - FOLATE SERUM 5. Fatigue, unspecified type - ICD9: 780.79, ICD10: R53.83 Needs to follow up with the geothermal hvac technician/general surgeon for consideration of repeat of colonoscopy under sedation as well as consideration of capsule endoscopy and further testing with specialist. I am not sure what is causing her symptoms of multiple vitamin Deficiencies and hypokalemia other than the poor nutrition, diarrhea, weight loss. - she needs to be taking vitamin B12, vitamin B2, Vitamin D and potassium supplements. - IRON + TIBC - FERRITIN BLD - MAGNESIUM BLD - COMP METABOLIC PANEL - CBC - VITAMIN B12 BLOOD - FOLATE SERUM Winston Ruiz DO Return if no improvement. Follow up with Winston Ruiz DO. To ER if develops chest pain, shortness of breath. Discussed risks, benefits, alternatives, and potential side effects of medications. Patient/Guardian expressed understanding and agreed with the plan. See patient instructions. Winston Ruiz DO [address] [place] [address] documented in this encounterMer[facility]-20-2022 Miscellaneous Notes* Telephone Encounter - Silvana Lewis Ma - 12/19/2021 3:28 PM EDT Pt notified, verbalized understanding. Silvana Lewis Ma * Telephone Encounter - Winston Ruiz DO - 12/19/2021 11:33 AM EDT Agree with below Winston Ruiz DO * Telephone Encounter - Cody Burrell RN - 12/19/2021 9:45 AM EDT Pt called and is notified of providers results and instructions. Pt voices understanding. Pt reports she has the deficiencies because of the nausea, vomiting, and diarrhea. States, I've lost 100 pounds in over a year because I can't eat. I force myself to eat a cupful of food a day because I know I have to.. Pt is asking what step you are going to take now. I told her that she needs to go get the labs drawn that the provider ordered first. Please call and advise. Cody Burrell RN * Telephone Encounter - Silvana Lewis Ma - 12/19/2021 9:31 AM EDT vm left with patient to contact office for results Silvana Lewis Ma * Telephone Encounter - Winston Ruiz DO - 12/19/2021 8:57 AM EDT Please inform patient that her labs show that her vitamin D level is still too low- needs to increase this supplement by an extra 1000 international unit(s) Once a day with a meal. Also her folate levels are low. Would recommend starting to take folate supplement of at least 1 mga day. Her vitamin B12 levels are too low. I would like her to have her MMA level and her intrinsic factorantibody levels checked. These are ordered. Needs to start on vitamin B12 of 5000 mcg a day by mouth Winston Ruiz DO documented in this encounterMercy [facility]. [facility]05-11-2022 Miscellaneous Notes* Telephone Encounter - Silvana Lewis Ma - 12/10/2021 6:12 PM EDT Please assist with scheduling PT Silvana Lewis Ma * Telephone Encounter - Brianda Hobson APRN.CNP - 12/10/2021 6:04 PM EDT PT consult placed. Please assist her to schedule appointment. Brianda Hobson APRN.BEATRICE * Telephone Encounter - Marianna Montalvo LPN - 12/10/2021 1:50 PM EDT Spoke with pt and information listed below given. Pt verbalizes understanding. - Pt would like to try PT. Once orders are in please advise her and help get apt made. - headache persisting - Excedrin does not work. Please advise. Marianna Montalvo LPN * Telephone Encounter - Winston Ruiz DO - 12/10/2021 12:46 PM EDT Please inform patient that overall CT of her brain is normal. Awaiting some of Her lab results still. Her thoracic spine xray shows mild arthritis/degenerative disc changes as well as mild scoliosis. Can consider PHYSICAL THERAPY for her neck/spine to see if this helps her symptoms. Winston Ruiz DO documented in this encounterMercy Health St. [facility]05-10-2022 History of Present illness Narrative* Marycruz Gann RT(R) - 12/09/2021 3:40 PM EDT Radiology Service Progress Note PATIENT NAME: Damaris Dykes DATE OF SERVICE: December 09, 2021 TIME: 3:36 PM PATIENT IDENTITY VERIFICATION COMPLETED USING TWO (2) IDENTIFIERS: Name and Date of confirmedby patient verbally. FALL SCREENING: Has the patient had 2 falls in the last year or 1 fall with injury or currently using an Ambulatory Assistive Device (Walker, Cane, Wheelchair, Crutches, etc.)? No PATIENT GENDER DATA: Female. status: : No status: NO. PATIENT RELEVANT IMPLANT DATA REVIEWED: Not Applicable RADIOLOGY DEPARTMENT: General X-ray: Exam(s) Completed: Spine X-Ray(s): Cervical AP / LAT / OBL andThoracic PERIPHERAL IV DATA: Not applicable SIGNED BY: RT Fabio(R) December 09, 2021 3:36 PM documented in this encounterMercy Health St. [facility]05-10-2022 History of Present illness Narrative* RT Darren(R) - 12/09/2021 3:00 PM EDT Radiology Service Progress Note DATE OF SERVICE: December 09, 2021 TIME: 3:22 PM PATIENT IDENTITY VERIFICATION COMPLETED USING TWO (2) STANDARD IDENTIFIERS: Name and Date of confirmed by patient verbally. FALL SCREENING: Has the patient had 2 falls in the last year or 1 fall with injury or currently using an Ambulatory Assistive Device (Walker, Cane, Wheelchair, Crutches, etc.)? No PATIENT GENDER DATA: Female. status: : No status: NO. PATIENT RELEVANT IMPLANT DATA REVIEWED: Yes ALLERGIES: Reviewed and unchanged CONTRAST ALLERGY: NO. EXAM: CT -CONTRAST INDUCED NEPHROPATHY RISK FACTORS: Not applicable CREATININE: Creatinine Date Value Ref Range Status 10/22/2021 0.96 0.58 - 0.96 mg/dL Final 08/14/2021 0.86 0.58 - 0.96 mg/dL Final 02/20/2021 0.74 0.58 - 0.96 mg/dL Final Estimated Glomerular Filtration Rate Date Value Ref Range Status 10/22/2021 78 >=60 mL/min/1.73m Final Comment: Estimated Glomerular Filtration Rate (eGFR) is calculated using the 2020 CKD-EPI creatinine equation. This equation utilizes serum creatinine, sex, and age as parameters. The creatinine assay has traceable calibration to isotope dilution- mass spectrometry. Refer to KDIGO guidelines for clinical interpretation. In patients with unstable renal function, e.g. those with acute kidney injury, the eGFRmay not accurately reflect actual GFR. eGFR- Date Value Ref Range Status 08/14/2021 >60 Final P.O.C.T. RESULTS: POC done: Yes, See Lab Tab December 09, 2021 TREATMENT: N/A PERIPHERAL IV DATA: Ambulatory: A peripheral IV was started in the Left antecubital site with a Angio cath: 22 gauge. RADIOLOGY DEPARTMENT: CT; Exam(s) Completed: Brain SIGNATURE: RT Lelo(R) PATIENT NAME: Damaris Dykes DATE: December 09, 2021 TIME: 3:22 PM documented in this encounterMercy Health St. [facility]05-10-2022 Miscellaneous Notes* Telephone Encounter - Iliana Gonzalez RN - 12/09/2021 8:23 AM EDT Patient call in for headache since last Wednesday. Nurse Triage assessment completed with protocol recommending for disposition of See PCP in 24 hours. Care advice reviewed with patient, patient stated understanding. Patient advised to contact office or seek evaluation in urgent care or ER if symptomspersist or gets worse. Reason for Disposition [1] MODERATE headache (e.g., interferes with normal activities) AND [2] present > 24 hours AND [3] unexplained (Exceptions: analgesics not tried, typical migraine, or headache part of viral illness) Answer Assessment - Initial Assessment Questions 1. LOCATION: Back of head by neck, sometimes it travels up and right behind eyes 2. ONSET: Wednesday 3. PATTERN: Comes and goes 4. SEVERITY: When it is bad rates pain 7 or 8; Right now she rates it a 2 out of 10. 5. RECURRENT SYMPTOM: Denies states that she really never has had headaches before 6. CAUSE: Denies 7. MIGRAINE: Denies 8. HEAD INJURY: Denies 9. OTHER SYMPTOMS: Stiff neck, eye pain, nausea 10. : Denies Protocols used: [id number] documented in this encounterMercy Health St. [facility]04-27-2022 History of Present illness Narrative* Elsie Estrada RN - 11/26/2021 2:14 PM EDT Patient identified by name and date of . Damaris Dykes is here for a Depo Provera injection. Patient brought medication. Date last injected: 09/03/21 Depo-Provera, 150 mg, administered IM right upper quadrant gluteus, Lot # [id number], expiration date 07/01/2023. Depo-Provera was given without incident. Date of last menses: Patient's last menstrual period was 07/14/2021. Irregular bleeding - No Menses ceased - Yes STD prevention discussed: Yes Patient instructed to return to clinic on 12 weeks. [email or web address] Provider Dr. Solis was present in office at time of injection. Elsie Estrada RN documented in this encounterMercy Health St. [facility]04-21-2022 History of Present illness Narrative* Lizandro Medeiros MD - 11/20/2021 11:17 AM EDT Subjective: Patient is status post an upper and attempted lower colonoscopy this was completed at [facility] on 11/10/2021. Upper scope biopsies for H. pylori were negative. I was unable to complete the colonoscopy secondary to patient's discomfort and I aborted the procedure. Patient states that she has been having significant amount of anal leakage and difficulty controlling her bowels. In addition she states that she is noticing that she has prolapse at times. Objective:Last menstrual period 07/14/2021. Abdomen is soft obese nontender Assessment:Diarrhea, unspecified type (primary encounter diagnosis) Helicobacter pylori gastritis Gastroesophageal reflux disease, unspecified whether esophagitis present Plan: I am going to refer her for to colorectal surgery at [facility] to be evaluated for her anal leakage and probable pelvic floor dysfunction. I think is best that the colorectal surgeon perform colonoscopy if he is going to do any procedure on her. documented in this encounterMercy Health St. [facility]04-11-2022 Nurse Note* Jigna Savage RN - 11/10/2021 12:20 PM EDT Pt extremely upset, angry, crying and cursing. Wants to leave as soon as possible. Denies pain or nausea. Upset because procedure could not be completed. Reassurance given and instructed patient thatDr. Mala would discuss with her a follow up colonoscopy and where it will be done with propofol. Jigna Savage RN * Jigna Savage RN - 11/10/2021 11:57 AM EDT Pt received in PACU. Pt completely awake. Pt very upset and tearful. Cursing and wondering why procedure could not be completed. Angry. Denies pain or nausea. Abd soft and non distended. Jigna Savage RN * Pearl Parsons RN - 11/10/2021 11:27 AM EDT [facility]OP NURSING HAND OFF NOTE SBAR Hand off given to Yaniv Gonzalez RN. Hand off was communicated verbally and at the patient's bedside and all questions were answered. Pearl Parsons RN documented in this encounterMercy Health St. [facility]04-04-2022 Miscellaneous Notes* Telephone Encounter - Christina Manuel APRN.BEATRICE - 11/03/2021 4:36 PM EDT Addressed in a separate telephone encounter. documented in this encounterMercy Health St. [facility]03-31-2022 Instructions* Patient Instructions* Christina Manuel APRN.CNP - 10/30/2021 11:16 AM EDT Luly Cedeño, It was good to meet and talk with you today. Below is a summary of the plan that we discussed during your appointment for reference. Of course, if you have any questions or concerns do not hesitate to reach out to me via a message or call. Best, Christina Manuel APRN.CNP PLAN AND FOLLOW UP: YOU SHOULD SEEK IMMEDIATE MEDICAL ATTENTION AT THE NEAREST EMERGENCY DEPARTMENT OR BY CALLING 911, IF ANY OF THE FOLLOWING OCCURS: - New or worsening thoughts of harming yourself (suicidal thoughts) or others (homicidal thoughts) - Not feeling safe at home or worrying about your ability to remain safe at home If you are having thoughts of harming yourself or others, then you can: - Call the National Suicide Hotline at 0-292-TTHWPPI ( ) or 3-642-739-TALK (5528) - Text 4HCAP to 535390 Medications: - Buspar 15 mg - take 1/2 tablet three times daily for 1 week, then take 1 tablet three times dailyafter that. - Lamictal 25 mg - take 1 tablet once daily for 14 days, then take 2 tablets once daily after that. - Propranolol 20 mg - take 1 tablet up to two times daily as needed for physical symptoms of anxiety. - Utilize Ativan as a rescue medication for overwhelming anxiety when nothing else has helped. Next appointment: November 26 at 4:30 pm. -- You may call the department appointment line at [phone] to schedule your appointment. -- Please call my nurse Dalila at [phone] or send me a message in RedT with any questions or concerns between appointments. documented in this encounterMercy Health St. [facility]03-31-2022 History of Present illness Narrative* Christina Manuel APRN.CNP - 10/30/2021 9:47 AM EDT Images from the original note were not included. PSYC NEW - PSYCHIATRIC ASSESSMENT Patient was seen for an initial evaluation. All information is from Patient report except when noted. This evaluation is NOT intended for forensic, disability or child custody purposes. AGE: [age] year old RACE: White MARITAL STATUS: In a relationship since June. Has 2 boys, 11 and 15 years old. OCCUPATION: Disabled due to Bipolar uzffikde15 years ago. REFERRAL SOURCE: PCP - Brianda Hobson APRN CHIEF COMPLAINT: Right now my anxiety is the problem. HPI: Today Damaris shares that she has seen Julia Mujica at the [facility] for [facility] . She has been diagnosed with bipolar disorder, borderline personality disorder, anxiety, and PTSD. The lastcouple times, she saw her provider she did not feel supported regarding her anxiety and no medication adjustments were made. Patient, father, and her 2 children used to live without Internet prior to the pandemic but then they got internet and her father was concerned that she had severe side effects from her medications. She did not receive support from her past provider in reducing medications. Patient took herself offthe medications as father kept telling her that she was taking harmful medications. After 2 months,she needed an inpatient hospitalization at [facility] due to worsening of her depression and anxiety symptoms. She felt that the inpatient hospitalization in [facility] was a traumatic experience. She felt mistreated there. She was put on an SONI but she felt that she did not receive adequate information. Shares that her father is anti-doctor. She cares about her fathers opinion a lot. I would jump if he told me to even if it would hurt me. Father does not believe that patient has mental health concerns. Patient shares that after the hospitalization, she realized that one of the [place]wick problems was living with her father. She has moved out and lives with her boyfriend and her children. Patient has had a total of 16 hospitalizations so far in her life. She has been struggling with feelings of anxiety. She struggles with racing, obsessive thoughts. Iworry about everything even when things are out of my control. She does struggle with focus and concentration. She also struggles with panic symptoms. She has a hard time shopping and being in a grocery store. She has insecure thoughts about people looking and judging her. She tends to forget whatshe has to get from the store. She used to love shopping and used to shop a lot even when she did not have enough money. Has somatic symptoms of anxiety such as a nausea, vomiting, increased shaking,sweating, and increased heat rate. Denies any shortness of breath and history of asthma. Her PCP Brianda gave her a short supply of Ativan. Only takes the Ativan when needed and has noted it to help her in severe anxiety states. She was taking Buspar 15 mg TID and felt that it was helping with her anxiety before. She is open to retrying her Buspar. Has taken Abilify in the past. She has struggled with mood swings. She does not remember taking her meds consistently. Does not think that Trazodone was helpful for her sleep. Patient appears to struggle in remembering indications of medications. Has taken Cymbalta (unsure of efficacy), Seroquel (it helped the first time she took it for sleep but then it stopped working), Invega (was on this longest, it helped), Celexa (helped but unsure, felt that it helped her mood), Pierson (took it for a short time), Zyprexa (unsure), luxov (unsure), remeron (serious mood swings, irritable), prozac (unsure), Venlafaxine (unsure), depakote (unsure), lamictal (good benefit, remembers taking it with [employer]), Gabapentin (for nerve pain), Topamax (unsure), Minipress (nightmares). Sleep: difficulty staying asleep, difficulty falling asleep, sleeping too much, some days she has trouble getting adequate sleep. Does use medical marijuana for pain and sleep. Interest: Diminished significantly. Lack of motivation. Guilt: extreme amount. Does not put herself first. Energy: low, fluctuates with mood or stress Concentration: poor Appetite: decreased significantly. She is only able to eat a couple bites. Has nausea and vomiting.She is following up with GI. Getting an endoscopy and colonoscopy next week. Psychomotor Activity: psychomotor activity was WNL. Suicide: Thoughts-No plan, No means, No intent and Passive wish to be . Feels that kids would be much better without her. Denies specific plan or intention. Phobias: no irrational fears Memory: Poor, Not as good as it used to be Anxiety: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 pylori) Gastroesophageal reflux disease, unspecified whether esophagitis present Nausea and vomiting, unspecified vomiting type Diarrhea, unspecified type Abnormal weight loss Loss of weight documented in this encounter [facility] note* Diagnosis Diarrhea, unspecified type- Primary Helicobacter pylori gastritis Helicobacter pylori (H. pylori) Gastroesophageal reflux disease, unspecified whether esophagitis present Anal prolapse Rectal prolapse documented in this encounter [facility] note* Diagnosis Encounter for management and injection of depo-Provera- Primary Surveillance of other previously prescribed contraceptive method documented in this encounter [facility] note* Diagnosis Acute nonintractable headache, unspecified headache type Chronic bilateral thoracic back pain documented in this encounter [facility] note* Diagnosis Acute nonintractable headache, unspecified headache type Word finding difficulty Problems with communication (including speech) Memory deficit Memory loss Bilateral leg paresthesia Disturbance of skin sensation [place] headache Headache documented in this encounter [facility] note* Diagnosis Chronic bilateral thoracic back pain- Primary documented in this encounter [facility] note* Diagnosis Vitamin B12 deficiency- Primary Other B-complex deficiencies Folate deficiency Other B-complex deficiencies documented in this encounter [facility] note* Diagnosis Diarrhea, unspecified type- Primary Hypokalemia Hypopotassemia Vitamin B12 deficiency Other B-complex deficiencies Folate deficiency Other B-complex deficiencies Fatigue, unspecified type documented in this encounter [facility] note* Diagnosis Hypokalemia- Primary Hypopotassemia documented in this encounter [facility] note* Diagnosis Chronic pelvic pain in female- Primary Unspecified symptom associated with female genital organs Deep dyspareunia Abnormal uterine bleeding (AUB) documented in this encounter [facility] note* Diagnosis Diarrhea, unspecified type- Primary Anal prolapse Rectal prolapse Abnormal weight loss Loss of weight documented in this encounter [facility] note* Diagnosis Breast pain- Primary Mastodynia Pelvic pain in female Unspecified symptom associated with female genital organs documented in this encounter [facility] note* Diagnosis Encounter for gynecological examination (general) (routine) without abnormal findings- Primary Screening for cervical cancer Screening for malignant neoplasm of the cervix Encounter for screening for human papillomavirus (HPV) Special screening examination for human papillomavirus (HPV) documented in this encounter [facility] note* Diagnosis Bilateral carpal tunnel syndrome- Primary Carpal tunnel syndrome documented in this encounter [facility] note* Diagnosis Nausea- Primary Nausea alone Generalized abdominal pain Abdominal pain, generalized Weight loss, unintentional Loss of weight Medical marijuana use Encounter for long-term (current) use of other medications Fatigue, unspecified type Early satiety Bloating Flatulence, eructation, and gas pain Anxiety with depression documented in this encounter [facility] note* Diagnosis Generalized abdominal pain- Primary Abdominal pain, generalized Nausea and vomiting, unspecified vomiting type Diarrhea, unspecified type Hypokalemia Hypopotassemia documented [facility]* Diagnosis Diarrhea, unspecified type- Primary Unintentional weight loss Loss of weight Generalized abdominal pain Abdominal pain, generalized Nausea Nausea alone Early satiety Gastritis, presence of bleeding unspecified, unspecified chronicity, unspecified gastritis type Diarrhea Unintentional weight loss Loss of weight Generalized abdominal pain Abdominal pain, generalized Diarrhea, unspecified type Unintentional weight loss Loss of weight Generalized abdominal pain Abdominal pain, generalized documented in this encounter [facility] note* Diagnosis Diarrhea Unintentional weight loss Loss of weight Generalized abdominal pain Abdominal pain, generalized Radiculopathy, unspecified spinal region- Primary Cervicalgia Sprain of ligament of lumbosacral joint, initial encounter Diarrhea, unspecified type Unintentional weight loss Loss of weight Generalized abdominal pain Abdominal pain, generalized [facility] Diagnosis Diarrhea Unintentional weight loss Loss of weight Generalized abdominal pain Abdominal pain, generalized Lumbar degenerative disc disease- Primary Radiculopathy, unspecified spinal region DDD (degenerative disc disease), cervical Degeneration of cervical intervertebral disc Bilateral carpal tunnel syndrome Carpal tunnel syndrome Bilateral carpal tunnel syndrome Carpal tunnel syndrome Diarrhea, unspecified type Unintentional weight loss Loss of weight Generalized abdominal pain Abdominal pain, generalized [facility] Diagnosis Diarrhea Unintentional weight loss Loss of weight Generalized abdominal pain Abdominal pain, generalized Bilateral carpal tunnel syndrome- Primary Carpal tunnel syndrome Bilateral carpal tunnel syndrome Carpal tunnel syndrome Diarrhea, unspecified type Unintentional weight loss Loss of weight Generalized abdominal pain Abdominal pain, generalized [facility] Diagnosis Diarrhea Unintentional weight loss Loss of weight Generalized abdominal pain Abdominal pain, generalized Radiculopathy, unspecified spinal region- Primary Bilateral carpal tunnel syndrome- Primary Carpal tunnel syndrome Bilateral carpal tunnel syndrome Carpal tunnel syndrome Diarrhea, unspecified type Unintentional weight loss Loss of weight Generalized abdominal pain Abdominal pain, generalized [facility] Diagnosis Diarrhea Unintentional weight loss Loss of weight Generalized abdominal pain Abdominal pain, generalized Bilateral carpal tunnel syndrome- Primary Carpal tunnel syndrome Diarrhea, unspecified type Unintentional weight loss Loss of weight Generalized abdominal pain Abdominal pain, generalized [facility]* Diagnosis Bilateral carpal tunnel syndrome- Primary Carpal tunnel syndrome [facility]* Diagnosis Bilateral carpal tunnel syndrome- Primary Carpal tunnel syndrome [facility]* Diagnosis Sprain of ligament of lumbosacral joint, subsequent encounter- Primary [facility]* Diagnosis Sprain of ligament of lumbosacral joint, initial encounter- Primary [facility]* Diagnosis Fatigue, unspecified type- Primary Abnormal thyroid biopsy [facility]* Diagnosis Sprain of ligament of lumbosacral joint, initial encounter- Primary [facility] Diagnosis Thyroid nodule- Primary Nontoxic uninodular goiter Fatigue, unspecified type [facility]* Diagnosis Fatigue, unspecified type- Primary Thyroid nodule Nontoxic uninodular goiter [facility] Diagnosis Thyroid nodule- Primary Nontoxic uninodular goiter Dysphagia, unspecified type- Primary Odynophagia Dysphagia, unspecified Globus sensation Gastrointestinal malfunction arising from mental factors Thyroid nodule Nontoxic uninodular goiter [facility] Diagnosis Thyroid nodule- Primary Nontoxic uninodular goiter Thyroid nodule Nontoxic uninodular goiter [facility] Diagnosis Aftercare following surgery for neoplasm- Primary Voice fatigue Other voice and resonance disorders [facility] Aftercare following surgery for neoplasm- Primary Voice fatigue Other voice and resonance disorders [facility]* Diagnosis 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 Oropharyngeal dysphagia Dysphagia, oropharyngeal phase Voice fatigue Other voice and resonance disorders [facility] Diagnosis Oropharyngeal dysphagia- Primary Dysphagia, oropharyngeal phase [facility] Diagnosis Depression, unspecified depression type- Primary documented in this encounter [facility] Work Phone: Evaluation note* Diagnosis Oropharyngeal dysphagia Dysphagia, oropharyngeal phase [facility]* Diagnosis Oropharyngeal dysphagia- Primary Dysphagia, oropharyngeal phase 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 Voice fatigue Other voice and resonance disorders Anxiety and depression [facility] Diagnosis Gastroesophageal reflux disease, unspecified whether esophagitis present- Primary Irritable bowel syndrome, unspecified type [facility] Diagnosis Encounter for other general counseling or advice on contraception [facility] Diagnosis Thyroid cancer (HCC)- Primary Malignant neoplasm of thyroid gland S/P thyroidectomy Other postprocedural status Hypothyroidism, unspecified type [facility] Diagnosis Breakthrough bleeding on Nexplanon- Primary [facility] Diagnosis Pain- Primary Generalized pain [facility]* Diagnosis Acute right ankle pain- Primary Pain in right foot Pain in limb Calf swelling Swelling of limb [facility] Diagnosis Calf swelling Swelling of limb [facility]* Diagnosis Pain Generalized pain [facility]* Diagnosis Acute right ankle pain [facility]* Diagnosis Tenosynovitis of right ankle- Primary Calf swelling Swelling of limb Paresthesia and pain of both upper extremities Disturbance of skin sensation Postoperative hypothyroidism Postsurgical hypothyroidism S/P complete thyroidectomy Other postprocedural status [facility]* Diagnosis Encounter for medical examination to establish care- Primary Essential hypertension Unspecified essential hypertension Hypertriglyceridemia Pure hyperglyceridemia AGUSTO (obstructive sleep apnea) Obstructive sleep apnea (adult) (pediatric) Gastroesophageal reflux disease, unspecified whether esophagitis present MG (generalized anxiety disorder) Generalized anxiety disorder Chronic post-traumatic stress disorder (PTSD) Bipolar 2 disorder (HCC) Other bipolar disorders Borderline personality disorder (HCC) Borderline personality disorder Tetrahydrocannabinol (THC) use disorder, mild, abuse Hypokalemia Hypopotassemia Hypothyroidism, acquired Unspecified hypothyroidism Paresthesia of hand, bilateral Obesity, Class II, BMI 35-39.9 Obesity, unspecified [facility]* Diagnosis Postoperative hypothyroidism- Primary Postsurgical hypothyroidism Papillary microcarcinoma of thyroid (HCC) Hypokalemia Hypopotassemia documented in this encounter [facility] note* Diagnosis SOB (shortness of breath) Shortness of breath [facility]* Diagnosis Impaired fasting blood sugar Impaired fasting glucose Hypertriglyceridemia Pure hyperglyceridemia documented in this encounter [facility] note* Diagnosis Thyroid nodule- Primary Nontoxic uninodular goiter Thyroid nodule Nontoxic uninodular goiter Abnormal uterine bleeding- Primary Unspecified disorder of menstruation and other abnormal bleeding from female genital tract [facility] Diagnosis Thyroid nodule- Primary Nontoxic uninodular goiter Thyroid nodule Nontoxic uninodular goiter Abnormal uterine bleeding- Primary Unspecified disorder of menstruation and other abnormal bleeding from female genital tract Breakthrough bleeding on Nexplanon [facility] Diagnosis Thyroid nodule- Primary Nontoxic uninodular goiter Thyroid nodule Nontoxic uninodular goiter Throat pain- Primary Voice fatigue Other voice and resonance disorders documented in this encounter [facility] note* Diagnosis Thyroid nodule- Primary Nontoxic uninodular goiter Thyroid nodule Nontoxic uninodular goiter Abnormal uterine bleeding- Primary Unspecified disorder of menstruation and other abnormal bleeding from female genital tract documented in this encounter [facility] note* Diagnosis Thyroid nodule- Primary Nontoxic uninodular goiter Thyroid nodule Nontoxic uninodular goiter Abnormal uterine bleeding- Primary Unspecified disorder of menstruation and other abnormal bleeding from female genital tract Abnormal uterine bleeding- Primary Unspecified disorder of menstruation and other abnormal bleeding from female genital tract Abnormal uterine bleeding Unspecified disorder of menstruation and other abnormal bleeding from female genital tract documented in this encounter [facility] note* Diagnosis Thyroid nodule- Primary Nontoxic uninodular goiter Thyroid nodule Nontoxic uninodular goiter Pre-op examination- Primary Abnormal uterine bleeding Unspecified disorder of menstruation and other abnormal bleeding from female genital tract Thyroid nodule Nontoxic uninodular goiter Bipolar 1 disorder (HCC) Anemia, unspecified type Gastroesophageal reflux disease, unspecified whether esophagitis present Cigarette nicotine dependence without complication Postoperative examination- Primary Follow-up examination, following unspecified surgery documented in this encounter [facility] note* Diagnosis Postoperative hypothyroidism Postsurgical hypothyroidism [facility]* Diagnosis Thyroid nodule- Primary Nontoxic uninodular goiter Thyroid nodule Nontoxic uninodular goiter Pre-op examination- Primary Abnormal uterine bleeding Unspecified disorder of menstruation and other abnormal bleeding from female genital tract Thyroid nodule Nontoxic uninodular goiter Bipolar 1 disorder (HCC) Anemia, unspecified type Gastroesophageal reflux disease, unspecified whether esophagitis present Cigarette nicotine dependence without complication Postoperative examination- Primary Follow-up examination, following unspecified surgery Nexplanon removal [facility] Diagnosis Thyroid nodule- Primary Nontoxic uninodular goiter Thyroid nodule Nontoxic uninodular goiter Pre-op examination- Primary Abnormal uterine bleeding Unspecified disorder of menstruation and other abnormal bleeding from female genital tract Thyroid nodule Nontoxic uninodular goiter Bipolar 1 disorder (HCC) Anemia, unspecified type Gastroesophageal reflux disease, unspecified whether esophagitis present Cigarette nicotine dependence without complication Dysphagia, unspecified type- Primary Nausea and vomiting, unspecified vomiting type Diarrhea, unspecified type Dysphagia Nausea and vomiting Nausea with vomiting Diarrhea Dysphagia, unspecified type Nausea and vomiting, unspecified vomiting type Diarrhea, unspecified type documented in this encounter [facility] Discharge instructions* Attachments The following attachments cannot be sent through Care Everywhere. * Abdominal Pain (French) * Nausea and Vomiting (French) * Hypokalemia (French) [facility] Attachments The following attachments cannot be sent through Care Everywhere. * Thyroid Surgery: [facility]op (French[facility] No data available for this section [facility] Instructions* Attachments The following attachments cannot be sent through Care Everywhere. * Hysterectomy: Vaginal Laparoscopic-Assisted: Post-op (French) * Endometrial Ablation: Video (French) [facility] No data available for this section [facility] Reason for referral (narrative)* Outpatient Procedure (Routine) - Closed Specialty Diagnoses / Procedures Referred By Soheila santos Referred To Contact [facility] Diagnoses Helicobacter pylori gastritis Nausea and vomiting, unspecified vomiting type Diarrhea, unspecified type Abnormal weight loss Procedures EGD DIAGNOSTIC ESOPHAGOGASTRODUODENOSC OPY TRANSORAL DIAGNOSTIC Lizandro Medeiros MD [address] [place] [address] [place] [id number] [address] Referral ID Status Reason Start Date Expiration Date V isits Requested Visits Authorized [id number] Closed Auto-Generate d Referral 10/15/2021 10/10/2022 1 1 * Outpatient Procedure (Routine) - Closed Specialty Diagnoses / Procedures Referred By Soheila santos Referred To Contact [facility] Diagnoses Helicobacter pylori gastritis Gastroesophageal reflux disease, unspecified whether esophagitis present Nausea and vomiting, unspecified vomiting type Diarrhea, unspecified type Abnormal weight loss Procedures COLONOSCOPY DIAGNOSTIC COLONOSCOPY FLX DX W/COLLJ SPEC WHEN PFRMD Lizandro Medeiros MD [address] [place] [address] [place] [id number] Referral ID Status Reason Start Date Expiration Date V isits Requested Visits Authorized [id number] Closed Auto-Generate d Referral 10/15/2021 10/10/2022 1 1 [facility] for referral (narrative)* Diagnostic Procedure Only (Routine) - Closed Specialty Diagnoses / Procedures Referred By Contac t Referred To Contact [facility] Diagnoses Chronic bilateral thoracic back pain Procedures XR THORACIC GENERAL 3V AP/LAT/SWIMMERS RADEX SPINE THORACIC 3 VIEWS Winston Ruiz, DO [address] [place] [address] [facility] Referral ID Status Reason Start Date Expiration Date V isits Requested Visits Authorized [id number] Closed Auto-Generate d Referral 12/09/2021 01/08/2023 1 1 * Diagnostic Procedure Only (Routine) - Closed Specialty Diagnoses / Procedures Referred By Contac t Referred To Contact [facility] Diagnoses Acute nonintractable headache, unspecified headache type Procedures XR CERV OTHER 4V AP/LAT/OBL RADEX SPINE CERVICAL 4 OR 5 VIEWS Winston Ruiz, DO [address] [place] [address] [facility] Referral ID Status Reason Start Date Expiration Date V isits Requested Visits Authorized [id number] Closed Auto-Generate d Referral 12/09/2021 01/08/2023 1 1 [facility] for referral (narrative)* Diagnostic Procedure Only (Routine) - Authorized Specialty Diagnoses / Procedures Referred By Contac t Referred To Contact [facility] Diagnoses Pelvic pain in female Procedures PELVIC US WHI US PELVIC NONOBSTETRIC REAL-TIME IMAGE COMPLETE Jennifer Marinelli APRN.[employer] [address] [place] [address] [facility] [address] [place] [address] Referral ID Status Reason Start Date Expiration Date Visits Requested Visits Authorized [id number] Authorized Auto-Generat ed Referral 02/17/2022 02/17/2023 1 1 * Diagnostic Procedure Only (Routine) - Pending Review Specialty Diagnoses / Procedures Referred By Contac t Referred To Contact [facility] Diagnoses Breast pain Procedures US BREAST LTD RT US BREAST UNI REAL TIME WITH IMAGE LIMITED Jennifer Marinelli APRN.[employer]TR[employer]PPLY MANAGER [address] [place] [address] [facility] [address] [place] [address] Referral ID Status Reason Start Date Expiration Date Visits Requested Visits Authorized [id number] Pending Review Auto-Generat ed Referral 02/17/2022 03/19/2023 1 1 * Diagnostic Procedure Only (Routine) - Pending Review Specialty Diagnoses / Procedures Referred By Contac t Referred To Contact [facility] Diagnoses Breast pain Procedures US BREAST LTD LT US BREAST UNI REAL TIME WITH IMAGE LIMITED Jennifer Marinelli APRN.C[employer]TR[employer]PPLY MANAGER [address] [place] [address] [facility] [address] [place] [address] Referral ID Status Reason Start Date Expiration Date Visits Requested Visits Authorized [id number] Pending Review Auto-Generat ed Referral 02/17/2022 03/19/2023 1 1 * Diagnostic Procedure Only (Routine) - Authorized Specialty Diagnoses / Procedures Referred By Contac t Referred To Contact [facility] Diagnoses Breast pain Procedures CANDELARIA DIAGNOSTIC BILAT DIAGNOSTIC MAMMOGRAPHY COMPUTER-AIDED DETCJ BI Jennifer Marinelli APRN.[employer]TR[employer]PPLY MANAGER [address] [place] [address] [facility] [address] [place] [address] Referral ID Status Reason Start Date Expiration Date Visits Requested Visits Authorized [id number] Authorized Auto-Generat ed Referral 02/17/2022 03/19/2023 1 1 [facility] for referral (narrative)* Diagnostic Procedure Only (Routine) - Closed Specialty Diagnoses / Procedures Referred By Contac t Referred To Contact [facility] Diagnoses Pain Procedures XR FOOT GENERAL 3V AP/LAT/OBL RIGHT RADEX FOOT COMPLETE MINIMUM [address] [place] [address] [place] [address] [place] [address] Referral ID Status Reason Start Date Expiration Date V isits Requested Visits Authorized [id number] Closed Auto-Generate d Referral 01/11/2024 02/09/2025 1 1 [facility] for visit Narrative* Outpatient Procedure (Routine) - Closed Specialty Diagnoses / Procedures Referred By Contac t Referred To Contact [facility] Diagnoses Helicobacter pylori gastritis Nausea and vomiting, unspecified vomiting type Diarrhea, unspecified type Abnormal weight loss Procedures EGD DIAGNOSTIC ESOPHAGOGASTRODUODENOSC OPY TRANSORAL DIAGNOSTIC Lizandro Medeiros MD [address] [facility] [place] [place] [address] [facility] [address] [place] [address] Referral ID Status Reason Start Date Expiration Date V isits Requested Visits Authorized [id number] Closed Auto-Generate d Referral 10/15/2021 10/10/2022 1 1 [facility] for visit Narrative* Diagnostic Procedure Only (Routine) - Closed Specialty Diagnoses / Procedures Referred By Contac t Referred To Contact XR IMAGING Diagnoses Chronic bilateral thoracic back pain Procedures XR THORACIC GENERAL 3V AP/LAT/SWIMMERS RADEX SPINE THORACIC 3 VIEWS Winston Ruiz DO [address] [place] [address] Xr Imaging Referral ID Status Reason Start Date Expiration Date V isits Requested Visits Authorized [id number] Closed Auto-Generate d Referral 12/09/2021 01/08/2023 1 1 [facility] for visit Narrative* Diagnostic Procedure Only (Urgent) - Closed Specialty Diagnoses / Procedures Referred By Contac t Referred To Contact US IMAGING Diagnoses Calf swelling Procedures US DVT LOWER RIGHT US DVT LOWER RIGHT DUP-SCAN XTR VEINS UNILATERAL/[place] [address] [place] [address] [place] [address] Referral ID Status Reason Start Date Expiration Date V isits Requested Visits Authorized [id number] Closed Auto-Generate d Referral 01/11/2024 02/09/2025 1 1 [facility] for visit Narrative* Diagnostic Procedure Only (Routine) - Closed Specialty Diagnoses / Procedures Referred By Contac t Referred To Contact XR IMAGING Diagnoses Pain Procedures XR FOOT GENERAL 3V AP/LAT/OBL RIGHT RADEX FOOT COMPLETE MINIMUM [address] [place] [address] [place] [id number] [place] [address] Referral ID Status Reason Start Date Expiration Date V isits Requested Visits Authorized [id number] Closed Auto-Generate d Referral 01/11/2024 02/09/2025 [address] [facility] Summary Purpose Family History No Family History Records FoundNo Family History Records FoundNo Family History Records FoundNo Family History Records FoundNo Family History Records FoundNo Family History Records FoundNo Family History Records FoundNo Family History Records FoundNo Family History Records FoundNo Family History Records FoundNo Family History Records FoundNo Family History Records FoundNo Family History Records FoundNo Family History Records FoundNo Family History Records FoundNo Family History Records FoundNo Family History Records FoundNo Family History Records FoundNo Family History Records Found No data available for this section No data available for this section No Family History Records Found Advance Directives No Advanced Directives Records FoundDocuments on File Type Date Recorded Patient Bulb Assembler Expl anation Advance Directives and Living Will Power of Circular Sawyer Helper Documents on File Type Date Recorded Patient Bulb Assembler Expl anation Advance Directive(s) 02/24/2021 8:47 AM Advance Directive(s) 02/24/2021 8:49 AM Advance Directive(s) 09/12/2018 5:38 PM Documents on File Type Date Recorded Patient Bulb Assembler Expl anation Advance Directive(s) 11/10/2021 9:33 AM Advance Directive(s) 02/24/2021 8:47 AM Advance Directive(s) 02/24/2021 8:49 AM Advance Directive(s) 09/12/2018 5:38 PM Documents on File Type Date Recorded Patient Bulb Assembler Expl anation Advance Directive(s) 11/10/2021 9:33 AM Advance Directive(s) 02/24/2021 8:47 AM Advance Directive(s) 02/24/2021 8:49 AM Advance Directive(s) 09/12/2018 5:38 PM Latest Code Status on File Code Status Date Activated Date Inactivated Comments Full Code 08/04/2023 4:37 PM 08/06/2023 4:17 PM Latest Code Status on File Code Status Date Activated Date Inactivated Comments Full Code 08/04/2023 4:37 PM 08/06/2023 4:17 PM Date Activated Date Inactivated Comments 08/04/2023 4:37 PM 08/06/2023 4:17 PM Date Activated Date Inactivated Comments 08/04/2023 4:37 PM 08/06/2023 4:17 PM Date Activated Date Inactivated Comments 09/12/2024 7:45 AM 09/12/2024 2:08 PM Date Activated Date Inactivated Comments 08/04/2023 4:37 PM 08/06/2023 4:17 PM Procedure Findings Note HNO ID: [id number] Author: Adis Branch Service: Radiology Author Type: Physician Type: Brief Op Note Filed: 09/19/2018 10:17 AM Note Text: BRIEF OPERATIVE / PROCEDURE NOTE LOG ID: [id number] SURGERY/PROCEDURE DATE: 09/19/2018 SURGEON(S)/PROCEDURALIST(S) AND MANUAL CONTROL AUGER PRESS OPERATOR(S): Surgeon(s) and Role: * Nicholas Branch - Primary No Additional Staff SURGERY/PROCEDURE(S): ultrasound guided right thyroid lobe nodule ANESTHESIA: Local FINDINGS: right thyroid lobe nodule ESTIMATED BLOOD LOSS: minimal SPECIMENS: three FNA biopsies of right thyroid lobe nodule COMPLICATIONS: None PRE-OP/PRE-PROCEDURE DIAGNOSIS: right thyroid lobe nodule POST-OP/POST-PROCEDURE DIAGNOSIS: right thyroid lobe nodule s/p ultrasound guided right thyroid lobe nodule SIGNATURE: Nicholas Branch MD PATIENT NAME: Mckayla Dykes DATE: September 19, 2018 TIME: 10:14 AM PAGER/CONTACT #: Medications Administered Section Inactive Administered Medications - up to 3 most recent administrations Medication Order MAR Action Action Date Dose Rate Site benzocaine 20% 1 [place] (TOPEX) 1 [place], TOPICAL, DIRECTED, Starting on Wed11/10/21 at 1200, Until Wed11/10/21 at 1559, DOSING DIRECTED BY PHYSICIAN FOR PROCEDURAL SEDATION ONLY - Pharmaceutical Waste: Aerosol -, Intraprocedure Given 11/10/2021 11:31 AM EDT 2 Sprays diphenhydrAMINE 12.5-50 mg injection (BENADRYL) 12.5-50 mg, INTRAVENOUS, DIRECTED, Starting on Wed11/10/21 at 1200, Until Wed11/10/21 at 1559, DOSING DIRECTED BY PHYSICIAN FOR PROCEDURAL SEDATION ONLY, Intraprocedure Given 11/10/2021 11:37 AM EDT 50 mg fentaNYL 50 mcg/mL 25-100 mcg injection (SUBLIMAZE) 25-100 mcg, INTRAVENOUS, DIRECTED, Starting on Wed11/10/21 at 1200, Until Wed11/10/21 at 1559, DOSING DIRECTED BY PHYSICIAN FOR PROCEDURAL SEDATION ONLY, Intraprocedure Given 11/10/2021 11:36 AM EDT 50 mcg Given 11/10/2021 11:33 AM EDT 50 mcg lactated ringers iv infusion 30 mL/hr, INTRAVENOUS, CONTINUOUS, Starting on Wed11/10/21 at 1000, Until Wed11/10/21 at 1200, Preprocedure New Bag/Syringe/Bottle 11/10/2021 10:20 AM EDT 30 mL/hr 30 mL/hr Hand, Right midazolam (PF) 1-5 mg injection (VERSED) 1-5 mg, INTRAVENOUS, DIRECTED, Starting on Wed11/10/21 at 1200, Until Wed11/10/21 at 1559, DOSING DIRECTED BY PHYSICIAN FOR PROCEDURAL SEDATION ONLY, Intraprocedure Given 11/10/2021 11:42 AM EDT 2 mg Given 11/10/2021 11:36 AM EDT 2 mg Given 11/10/2021 11:33 AM EDT 3 mg ondansetron (PF) 4 mg injection (ZOFRAN) 4 mg, INTRAVENOUS, DIRECTED, Starting on Wed11/10/21 at 1200, Until Wed11/10/21 at 1559, DOSING DIRECTED BY PHYSICIAN FOR PROCEDURAL SEDATION ONLY, Intraprocedure Given 11/10/2021 11:51 AM EDT 4 mg Active Administered Medications - up to 3 most recent administrations Medication Order MAR Action Action Date Dose Rate Site medroxyPROGESTERone 150 mg injection (DEPO-PROVERA) 150 mg, INTRAMUSCULAR, EVERY 12 WEEKS, 4 doses, First dose on Wed09/03/21 at 1430, Last dose on Wed05/13/22 at 1430, Hazardous Potential Reproductive Risk Drug: Use appropriate PPE. Given 11/26/2021 2:18 PM EDT 150 mg Buttocks, Right Given 09/03/2021 3:11 PM EST 150 mg Ar m, Right Reason for Referral Specialty Diagnoses / Procedures Referred By Soheila santos Referred To Contact Colon and Rectal Surgery Diagnoses Diarrhea, unspecified type Anal prolapse Procedures CONSULT TO COLO-RECTAL SURGERY OFFICE/OUTPATIENT [facility] MDM 60-74 MINUTES Lizandro Medeiros MD [address] [facility] [place] [place] [address] Referral ID Status Reason Start Date Expiration Date Visits Requested Visits Authorized [id number] Authorized PCP Requested Referral 11/20/2021 11/20/2022 1 1 Specialty Diagnoses / Procedures Referred By Soheila santos Referred To Contact CT IMAGING Diagnoses Acute nonintractable headache, unspecified headache type Word finding difficulty Memory deficit Bilateral leg paresthesia Thunderclap headache Procedures CT BRAIN WO/W IVCON CT HEAD/BRAIN W/O & W/CONTRAST MATERIAL Winston Ruiz, DO [address] [place] [address] Ct Imaging Referral ID Status Reason Start Date Expiration Date V isits Requested Visits Authorized [id number] Closed Auto-Generat ed Referral Patient Cleared - Admin/Chairm an/Director advise to proceed 12/09/2021 02/07/2022 1 1 Specialty Diagnoses / Procedures Referred By Soheila santos Referred To Contact [facility] Diagnoses Chronic bilateral thoracic back pain Procedures CONSULT TO PHYSICAL THERAPY PHYSICAL THERAPY EVALUATION HIGH COMPLEX 45 MINS Winston Ruiz, DO [address] [place] [address] [facility] [address] [place] [address] Referral ID Status Reason Start Date Expiration Date Visits Requested Visits Authorized [id number] Pending Review Auto-Generat ed Referral 12/10/2021 12/10/2022 1 1 Specialty Diagnoses / Procedures Referred By Contac t Referred To Contact Diagnoses Chronic pelvic pain in female Deep dyspareunia Abnormal uterine bleeding (AUB) Procedures CONSULT TO MINIMALLY INVASIVE GYNECOLOGIC SURGERY OFFICE/OUTPATIENT [facility] 60-74 MINUTES Salena Solis MD [address] [place] [phone] Referral ID Status Reason Start Date Expiration Date Visits Requested Visits Authorized [id number] Authorized PCP Requested Referral Auto-Generate d Referral 12/30/2021 12/30/2022 1 1 Specialty Diagnoses / Procedures Referred By Contac t Referred To Contact Diagnoses Nausea Generalized abdominal pain Early satiety Bloating Brianda Hobson APRN.CENTRAL SUPPLY MANAGER [address] [place] [address] Referral ID Status Reason Start Date Expiration Date Visits Re quested Visits Authorized [id number] Closed 1 1 Specialty Diagnoses / Procedures Referred By Contac t Referred To Contact Diagnoses Nausea Generalized abdominal pain Weight loss, unintentional Medical marijuana use Fatigue, unspecified type Early satiety Bloating Procedures CONSULT TO FUNCTIONAL MEDICINE OFFICE/OUTPATIENT [facility] 60-74 MINUTES Brianda Hobson APRN.CENTRAL SUPPLY MANAGER [address] [place] [address] Referral ID Status Reason Start Date Expiration Date Visits Requested Visits Authorized [id number] Authorized PCP Requested Referral 05/27/2023 1 1 Specialty Diagnoses / Procedures Referred By Contac t Referred To Contact Radiology Diagnoses Diarrhea, unspecified type Generalized abdominal pain Nausea Early satiety Procedures NM Gastric Emptying Lindsay Sherman, CENTRAL SUPPLY MANAGER [address] [place] [address] Referral ID Status Reason Start Date Expiration Date V isits Requested Visits Authorized [id number] New Request 04/08/2023 04/07/2024 4 4 Specialty Diagnoses / Procedures Referred By Contac t Referred To Contact Rehabilitation Diagnoses Radiculopathy, unspecified spinal region Cervicalgia Sprain of ligament of lumbosacral joint, initial encounter Varinder Mohr MD [address] [place] [address] Referral ID Status Reason Start Date Expiration Date Visits Requested Visits Authorized [id number] Authorized Specialty Services Required/Pat ient's Best Interest 04/27/2023 04/26/2024 1 1 Specialty Diagnoses / Procedures Referred By Contac t Referred To Contact Radiology Diagnoses Thyroid nodule Procedures US Soft Tissue Neck and Thyroid Mo Kaur MD [address] [place] [phone] Referral ID Status Reason Start Date Expiration Date V isits Requested Visits Authorized [id number] Authorized 07/08/2023 07/07/2024 1 1 Specialty Diagnoses / Procedures [facility] To Contact General Surgery Diagnoses Thyroid nodule Mo Kaur MD [address] [place] [address] Gilles Kim MD [address] [address] Referral ID Status Reason Start Date Expiration Date V isits Requested Visits Authorized [id number] Authorized 07/08/2023 07/07/2024 1 1 Specialty Diagnoses / Procedures Referred By Contac t Referred To Contact Radiology Diagnoses Dysphagia, unspecified type Procedures XR Upper GI With Esophagram Lindsay Sherman, CENTRAL SUPPLY MANAGER [address] [place] [address] Referral ID Status Reason Start Date Expiration Date V isits Requested Visits Authorized [id number] Pending Review 08/03/2023 08/02/2024 1 1 Specialty Diagnoses / Procedures Referred By Contact Referred To Contact Otolaryngology (ENT) / Otolaryngology Diagnoses Voice fatigue Gilles Kim MD [address] [place] [id number] Parviz Dobbins MD [address] [place], [place] [phone] Referral ID Status Reason Start Date Expiration Date Visits Requested Visits Authorized [id number] Authorized Specialty Services Required/Pat ient's Best Interest 08/13/2023 08/12/2024 1 1 Specialty Diagnoses / Procedures Referred By Contac t Referred To Contact Rehabilitation Diagnoses Oropharyngeal dysphagia Parviz Dobbins MD [address] [place] [address] [facility] Therapy [address] [place] [phone] Referral ID Status Reason Start Date Expiration Date V isits Requested Visits Authorized [id number] Authorized 08/30/2023 08/29/2024 1 1 Specialty Diagnoses / Procedures Referred By Contac t Referred To Contact Radiology Diagnoses Oropharyngeal dysphagia Procedures XR Modifed Barium Swallow Parviz Dobbins MD [address] [place] [address] Referral ID Status Reason Start Date Expiration Date V isits Requested Visits Authorized [id number] Pending Review 08/30/2023 08/29/2024 1 1 Referral ID Status Reason Start Date Expiration Date V isits Requested Visits Authorized [id number] Authorized 09/07/2023 09/06/2024 1 199 Specialty Diagnoses / Procedures Referred By Contac t Referred To Contact Radiology Diagnoses S/P thyroidectomy Thyroid cancer (HCC) Hypothyroidism, unspecified type Procedures US Soft Tissue Neck and Thyroid Mo Kaur MD [address] [place], [place] [phone] Referral ID Status Reason Start Date Expiration Date V isits Requested Visits Authorized [id number] Authorized 04/02/2024 04/02/2025 1 1 Specialty Diagnoses / Procedures Referred By Contac t Referred To Contact MR IMAGING Diagnoses Acute right ankle pain Procedures MRI ANKLE WO IVCON RIGHT MRI ANY JT LOWER EXTREM W/O CONTRAST MATRL Power Parker MD [address] [place] [address] Mr Imaging [facility] Referral ID Status Reason Start Date Expiration Date Visits Requested Visits Authorized [id number] Pending Review Auto-Generat ed Referral 01/11/2024 02/09/2025 1 1 Referral ID Status Reason Start Date Expiration Date V isits Requested Visits Authorized [id number] Closed Auto-Generate d Referral 01/11/2024 02/09/2025 1 1 Specialty Diagnoses / Procedures Referred By Soheila t Referred To Contact [facility] Diagnoses Tenosynovitis of right ankle Calf swelling Procedures CONSULT TO PHYSICAL THERAPY PHYSICAL THERAPY EVALUATION HIGH COMPLEX 45 MINS Power Parker MD [address] [place] [address] [facility] [address] [place] [address] Referral ID Status Reason Start Date Expiration Date Visits Requested Visits Authorized [id number] Authorized PCP Requested Referral Auto-Generate d Referral 02/22/2024 02/21/2025 99 99 Specialty Diagnoses / Procedures Referred By Soheila santos Referred To Contact Rheumatology Diagnoses Calf swelling Tenosynovitis of right ankle Procedures CONSULT TO RHEUM/IMMUN DISEASE OFFICE/OUTPATIENT [facility] 60 MINUTES Power Parker MD [address] [place] [address] Referral ID Status Reason Start Date Expiration Date Visits Requested Visits Authorized [id number] Authorized PCP Requested Referral 02/22/2024 02/21/2025 1 1 Specialty Diagnoses / Procedures Referred By Soheila t Referred To Contact Endocrinology Diagnoses S/P complete thyroidectomy Postoperative hypothyroidism Procedures CONSULT TO ENDOCRINOLOGY OFFICE/OUTPATIENT [facility] 60 MINUTES Power Parker MD [address] [place] [address] Referral ID Status Reason Start Date Expiration Date Visits Requested Visits Authorized [id number] Authorized PCP Requested Referral 02/22/2024 02/21/2025 1 1 Specialty Diagnoses / Procedures Referred By Soheila santos Referred To Contact MR IMAGING Diagnoses Paresthesia of hand, bilateral Procedures MRI CERVICAL SPINE WO IVCON MRI SPINAL CANAL CERVICAL W/O CONTRAST Varinder Brown DO [address] [place] [address] [place] [address] Referral ID Status Reason Start Date Expiration Date Visits Requested Visits Authorized [id number] New Request Auto-Generat ed Referral 03/02/2024 04/01/2025 1 1 Additional Source Comments INFORMATION SOURCE (unrecogn ized section and content) DATE CREATED AUTHOR 06/01/2018 [facility] DATE CREATED AUTHOR AUTHOR'S ORGANIZ ATION 09/22/2018 [facility] DATE CREATED AUTHOR AUTHOR'S ORGANIZ ATION 12/28/2019 [facility] DATE CREATED AUTHOR AUTHOR'S ORGANIZ ATION 06/24/2022 [facility] DATE CREATED AUTHOR AUTHOR'S ORGANIZ ATION 07/31/2022 [facility] DATE CREATED AUTHOR AUTHOR'S ORGANIZ ATION 09/11/2022 [facility] DATE CREATED AUTHOR AUTHOR'S ORGANIZ ATION 09/13/2023 [facility] DATE CREATED AUTHOR AUTHOR'S ORGANIZ ATION 12/13/2023 [facility] DATE CREATED AUTHOR AUTHOR'S ORGANIZ ATION 01/19/2024 [facility] DATE CREATED AUTHOR AUTHOR'S ORGANIZ ATION 03/05/2024 [facility] DATE CREATED AUTHOR AUTHOR'S ORGANIZ ATION 04/10/2024 [facility] DATE CREATED AUTHOR AUTHOR'S ORGANIZ ATION 05/15/2024 [facility] DATE CREATED AUTHOR AUTHOR'S ORGANIZ ATION 06/08/2024 [facility] DATE CREATED AUTHOR AUTHOR'S ORGANIZ ATION 11/25/2024 [facility] DATE CREATED AUTHOR AUTHOR'S ORGANIZ ATION 03/10/2025 [facility] DATE CREATED AUTHOR AUTHOR'S ORGANIZ ATION 03/26/2025 [facility] DATE CREATED AUTHOR AUTHOR'S ORGANIZ ATION 03/28/2025 [facility] DATE CREATED AUTHOR AUTHOR'S ORGANIZ ATION 04/18/2025 [facility] DATE CREATED AUTHOR AUTHOR'S ORGANIZ ATION 2025 [facility] DATE CREATED AUTHOR AUTHOR'S ORGANIZ ATION 05/17/2025 [facility] Source Comments (unrecognize d section and content) In the event this informatio n is protected by the Federal Confidentiality of Alcohol and Drug Abuse Patient Records regulations: The Federal rules restrict any use of the information to criminally investigate or prosecute any alcohol or drug abuse patient.[facility] the event this information is protected by the Federal Confidentiality of Alcohol and Drug Abuse Patient Records regulations: The Federal rules restrict any use of the information to criminally investigate or prosecute any alcohol or drug abuse patient.[facility] Hospital[facility] the event this information is protected by the Federal Confidentiality of Alcohol and Drug Abuse Patient Records regulations: The Federal rules restrict any use of the information to criminally investigate or prosecute any alcohol or drug abuse patient.[facility] Hospital[facility] the event this information is protected by the Federal Confidentiality of Alcohol and Drug Abuse Patient Records regulations: The Federal rules restrict any use of the information to criminally investigate or prosecute any alcohol or drug abuse patient.[facility] the event this information is protected by the Federal Confidentiality of Alcohol and Drug Abuse Patient Records regulations: The Federal rules restrict any use of the information to criminally investigate or prosecute any alcohol or drug abuse patient.[facility] Hospital[facility] the event this information is protected by the Federal Confidentiality of Alcohol and Drug Abuse Patient Records regulations: The Federal rules restrict any use of the information to criminally investigate or prosecute any alcohol or drug abuse patient.[facility] Hospital[facility] the event this information is protected by the Federal Confidentiality of Alcohol and Drug Abuse Patient Records regulations: The Federal rules restrict any use of the information to criminally investigate or prosecute any alcohol or drug abuse patient.[facility] the event this information is protected by the Federal Confidentiality of Alcohol and Drug Abuse Patient Records regulations: The Federal rules restrict any use of the information to criminally investigate or prosecute any alcohol or drug abuse patient.[facility] the event this information is protected by the Federal Confidentiality of Alcohol and Drug Abuse Patient Records regulations: The Federal rules restrict any use of the information to criminally investigate or prosecute any alcohol or drug abuse patient.[facility] Hospital[facility] the event this information is protected by the Federal Confidentiality of Alcohol and Drug Abuse Patient Records regulations: The Federal rules restrict any use of the information to criminally investigate or prosecute any alcohol or drug abuse patient.[facility] the event this information is protected by the Federal Confidentiality of Alcohol and Drug Abuse Patient Records regulations: The Federal rules restrict any use of the information to criminally investigate or prosecute any alcohol or drug abuse patient.[facility] Hospital[facility] the event this information is protected by the Federal Confidentiality of Alcohol and Drug Abuse Patient Records regulations: The Federal rules restrict any use of the information to criminally investigate or prosecute any alcohol or drug abuse patient.[facility] HospitalIn the event this information is protected by the Federal Confidentiality of Alcohol and Drug Abuse Patient Records regulations: The Federal rules restrict any use of the information to criminally investigate or prosecute any alcohol or drug abuse patient.[facility] HospitalIn the event this information is protected by the Federal Confidentiality of Alcohol and Drug Abuse Patient Records regulations: The Federal rules restrict any use of the information to criminally investigate or prosecute any alcohol or drug abuse patient.[facility] HospitalIn the event this information is protected by the Federal Confidentiality of Alcohol and Drug Abuse Patient Records regulations: The Federal rules restrict any use of the information to criminally investigate or prosecute any alcohol or drug abuse patient.[facility] HospitalIn the event this information is protected by the Federal Confidentiality of Alcohol and Drug Abuse Patient Records regulations: The Federal rules restrict any use of the information to criminally investigate or prosecute any alcohol or drug abuse patient.[facility] HospitalIn the event this information is protected by the Federal Confidentiality of Alcohol and Drug Abuse Patient Records regulations: The Federal rules restrict any use of the information to criminally investigate or prosecute any alcohol or drug abuse patient.[facility] HospitalIn the event this information is protected by the Federal Confidentiality of Alcohol and Drug Abuse Patient Records regulations: The Federal rules restrict any use of the information to criminally investigate or prosecute any alcohol or drug abuse patient.[facility] HospitalIn the event this information is protected by the Federal Confidentiality of Alcohol and Drug Abuse Patient Records regulations: The Federal rules restrict any use of the information to criminally investigate or prosecute any alcohol or drug abuse patient.[facility] HospitalIn the event this information is protected by the Federal Confidentiality of Alcohol and Drug Abuse Patient Records regulations: The Federal rules restrict any use of the information to criminally investigate or prosecute any alcohol or drug abuse patient.[facility] HospitalIn the event this information is protected by the Federal Confidentiality of Alcohol and Drug Abuse Patient Records regulations: The Federal rules restrict any use of the information to criminally investigate or prosecute any alcohol or drug abuse patient.[facility] HospitalIn the event this information is protected by the Federal Confidentiality of Alcohol and Drug Abuse Patient Records regulations: The Federal rules restrict any use of the information to criminally investigate or prosecute any alcohol or drug abuse patient.[facility] HospitalIn the event this information is protected by the Federal Confidentiality of Alcohol and Drug Abuse Patient Records regulations: The Federal rules restrict any use of the information to criminally investigate or prosecute any alcohol or drug abuse patient.[facility] HospitalIn the event this information is protected by the Federal Confidentiality of Alcohol and Drug Abuse Patient Records regulations: The Federal rules restrict any use of the information to criminally investigate or prosecute any alcohol or drug abuse patient.[facility] HospitalIn the event this information is protected by the Federal Confidentiality of Alcohol and Drug Abuse Patient Records regulations: The Federal rules restrict any use of the information to criminally investigate or prosecute any alcohol or drug abuse patient.[facility] HospitalIn the event this information is protected by the Federal Confidentiality of Alcohol and Drug Abuse Patient Records regulations: The Federal rules restrict any use of the information to criminally investigate or prosecute any alcohol or drug abuse patient.[facility] HospitalIn the event this information is protected by the Federal Confidentiality of Alcohol and Drug Abuse Patient Records regulations: The Federal rules restrict any use of the information to criminally investigate or prosecute any alcohol or drug abuse patient.[facility] HospitalIn the event this information is protected by the Federal Confidentiality of Alcohol and Drug Abuse Patient Records regulations: The Federal rules restrict any use of the information to criminally investigate or prosecute any alcohol or drug abuse patient.[facility] HospitalIn the event this information is protected by the Federal Confidentiality of Alcohol and Drug Abuse Patient Records regulations: The Federal rules restrict any use of the information to criminally investigate or prosecute any alcohol or drug abuse patient.[facility] HospitalIn the event this information is protected by the Federal Confidentiality of Alcohol and Drug Abuse Patient Records regulations: The Federal rules restrict any use of the information to criminally investigate or prosecute any alcohol or drug abuse patient.[facility] HospitalIn the event this information is protected by the Federal Confidentiality of Alcohol and Drug Abuse Patient Records regulations: The Federal rules restrict any use of the information to criminally investigate or prosecute any alcohol or drug abuse patient.[facility] HospitalIn the event this information is protected by the Federal Confidentiality of Alcohol and Drug Abuse Patient Records regulations: The Federal rules restrict any use of the information to criminally investigate or prosecute any alcohol or drug abuse patient.[facility] HospitalIn the event this information is protected by the Federal Confidentiality of Alcohol and Drug Abuse Patient Records regulations: The Federal rules restrict any use of the information to criminally investigate or prosecute any alcohol or drug abuse patient.[facility] HospitalIn the event this information is protected by the Federal Confidentiality of Alcohol and Drug Abuse Patient Records regulations: The Federal rules restrict any use of the information to criminally investigate or prosecute any alcohol or drug abuse patient.[facility] HospitalIn the event this information is protected by the Federal Confidentiality of Alcohol and Drug Abuse Patient Records regulations: The Federal rules restrict any use of the information to criminally investigate or prosecute any alcohol or drug abuse patient.[facility] HospitalIn the event this information is protected by the Federal Confidentiality of Alcohol and Drug Abuse Patient Records regulations: The Federal rules restrict any use of the information to criminally investigate or prosecute any alcohol or drug abuse patient.[facility] HospitalIn the event this information is protected by the Federal Confidentiality of Alcohol and Drug Abuse Patient Records regulations: The Federal rules restrict any use of the information to criminally investigate or prosecute any alcohol or drug abuse patient.[facility] HospitalIn the event this information is protected by the Federal Confidentiality of Alcohol and Drug Abuse Patient Records regulations: The Federal rules restrict any use of the information to criminally investigate or prosecute any alcohol or drug abuse patient.[facility] HospitalIn the event this information is protected by the Federal Confidentiality of Alcohol and Drug Abuse Patient Records regulations: The Federal rules restrict any use of the information to criminally investigate or prosecute any alcohol or drug abuse patient.[facility] HospitalIn the event this information is protected by the Federal Confidentiality of Alcohol and Drug Abuse Patient Records regulations: The Federal rules restrict any use of the information to criminally investigate or prosecute any alcohol or drug abuse patient.[facility] HospitalIn the event this information is protected by the Federal Confidentiality of Alcohol and Drug Abuse Patient Records regulations: The Federal rules restrict any use of the information to criminally investigate or prosecute any alcohol or drug abuse patient.[facility] HospitalIn the event this information is protected by the Federal Confidentiality of Alcohol and Drug Abuse Patient Records regulations: The Federal rules restrict any use of the information to criminally investigate or prosecute any alcohol or drug abuse patient.[facility] HospitalIn the event this information is protected by the Federal Confidentiality of Alcohol and Drug Abuse Patient Records regulations: The Federal rules restrict any use of the information to criminally investigate or prosecute any alcohol or drug abuse patient.[facility] HospitalIn the event this information is protected by the Federal Confidentiality of Alcohol and Drug Abuse Patient Records regulations: The Federal rules restrict any use of the information to criminally investigate or prosecute any alcohol or drug abuse patient.[facility] HospitalIn the event this information is protected by the Federal Confidentiality of Alcohol and Drug Abuse Patient Records regulations: The Federal rules restrict any use of the information to criminally investigate or prosecute any alcohol or drug abuse patient.[facility] Reason for Visit (unrecogniz ed section and content) Reason Comments Chest Pain Abdominal Pain Reason Comments New Patient Evaluation Specialty Diagnoses / Procedures Referred By Contac t Referred To Contact Diagnoses Anxiety with depression Procedures CONSULT TO PSYCHIATRY OFFICE/OUTPATIENT NEW HIGH MDM 60-74 MINUTES Brianda Hobson APRN.CENTRAL SUPPLY MANAGER [address] [place] [address] Referral ID Status Reason Start Date Expiration Date Visits Requested Visits Authorized [id number] Pending Review PCP Requested Referral 09/29/2021 09/29/2022 1 1 Reason Comments 11-10-2021 Colon EGD [facility] Reason Comments Follow Up review EGD and colon oscopy Reason Onset Date Comments Depo Provera Injection 11/26/2021 Reason Comments Headache Reason Comments Radiology CT Specialty Diagnoses / Procedures Referred By Contac t Referred To Contact CT IMAGING Diagnoses Acute nonintractable headache, unspecified headache type Word finding difficulty Memory deficit Bilateral leg paresthesia Thunderclap headache Procedures CT BRAIN WO/W IVCON CT HEAD/BRAIN W/O & W/CONTRAST MATERIAL Winston Ruiz, DO [address] [place] [address] Ct Imaging Referral ID Status Reason Start Date Expiration Date V isits Requested Visits Authorized [id number] Closed Auto-Generat ed Referral Patient Cleared - Admin/Chairm an/Director advise to proceed 12/09/2021 02/07/2022 1 1 Reason Comments Results Reason Comments Results Reason Comments Follow Up Reason Comments Vomiting Reason Comments Patient Question Reason Comments Patient Update Reason Comments Follow Up [facility], 01/01/22 recta l pain, spasms Reason Comments Yearly Exam Reason Comments bilateral CTS EMG/NCV 02-18-2021 New Reason Comments Refill Request Reason Comments Nausea Reason Comments Nausea X 4 days Pain, Back Lower right side Reason Comments Abdominal Pain Pt reports lower per iumbilicus abdominal pain that began 4-5 days. Pt reports cramping. Pt +N/V/D. Pt denies urinary symptoms or back pain. Pt rates pain 02/08 in abdomen Specialty Diagnoses / Procedures Referred By Contac t Referred To Contact Gastroenterology Diagnoses Diarrhea, unspecified type Tory Mandel, CENTRAL SUPPLY MANAGER [address] [place] [address] Brandon Norton MD [address] [place] [address] Referral ID Status Reason Start Date Expiration Date Visits Re quested Visits Authorized [id number] Closed 03/22/2023 03/21/2024 1 1 Reason Comments Pain Specialty Diagnoses / Procedures Referred By Contac t Referred To Contact Orthopedic Surgery Diagnoses Radiculopathy, unspecified spinal region Carole Sanit Patti, CENTRAL SUPPLY MANAGER [address] [place] [address] Varinder Mohr MD [address] [place] [address] Referral ID Status Reason Start Date Expiration Date Visits Re quested Visits Authorized [id number] Closed 04/06/2023 04/05/2024 1 1 Reason Onset Date Comments Medication Refill 04/27/2023 Reason Onset Date Comments Medication Refill 05/06/2023 Reason Comments Physical Therapy Specialty Diagnoses / Procedures Referred By Contac t Referred To Contact Rehabilitation Diagnoses Radiculopathy, unspecified spinal region Cervicalgia Sprain of ligament of lumbosacral joint, initial encounter Varinder Mohr MD [address] [place] [address] [phone] Referral ID Status Reason Start Date Expiration Date V isits Requested Visits Authorized [id number] Authorized 04/27/2023 04/26/2024 9 199 Specialty Diagnoses / Procedures Referred By Contac t Referred To Contact Endocrinology/Metabolism / Endocrinology Diagnoses Abnormal thyroid biopsy Olga Dhillon, CENTRAL SUPPLY MANAGER [address] [place] [address] Patricia Childs MD [address] [place] [address] Referral ID Status Reason Start Date Expiration Date Visits Re quested Visits Authorized [id number] Closed 06/14/2023 06/13/2024 1 1 Reason Comments Thyroid Problem Reason Comments IV Medication Specialty Diagnoses / Procedures Referred By Contac t Referred To Contact Infusion Therapy Diagnoses Fatigue, unspecified type Thyroid nodule Procedures [place] INJECTION, COSYNTROPIN, 0.25 MG Mo Kaur MD [address] [place] [address] [facility] [address] [place] [phone] Referral ID Status Reason Start Date Expiration Date V isits Requested Visits Authorized [id number] Authorized 07/08/2023 10/08/2023 1 1 Specialty Diagnoses / Procedures Referred By Soheila t Referred To Contact Diagnoses Thyroid nodule Thyroid nodule [E04.1] Procedures TOTAL THYROIDECTOMY Referral ID Status Reason Start Date Expiration Date Visits Re quested Visits Authorized [id number] 1 1 Reason Comments Follow-up thyroidectomy Reason Comments Dysphagia Dysphagia, voice fat igueNew Pt Specialty Diagnoses / Procedures Referred By Contact Referred To Contact Otolaryngology (ENT) / Otolaryngology Diagnoses Voice fatigue Gilles Kim MD [address] [place], [place] [id number] Parviz Dobbins MD [address] [place], [place] [phone] Referral ID Status Reason Start Date Expiration Date V isits Requested Visits Authorized [id number] Closed Specialty Services Required/Mey ent's Best Interest 08/13/2023 08/12/2024 1 1 Reason Comments Psychiatric Evaluation Pt was seen at [facility] today and told therapist that she wouldn't make it until September. Pt states she's having a rough time lately. She reports thinking about killing herself but has no plan. Specialty Diagnoses / Procedures Referred By Soheila t Referred To Contact Rehabilitation Diagnoses Oropharyngeal dysphagia Parviz Dobbins MD [address] [place] [address] Op Speech Therapy [address] [place] [phone] Referral ID Status Reason Start Date Expiration Date V isits Requested Visits Authorized [id number] Authorized 09/07/2023 09/06/2024 1 199 Reason Comments Follow-up 6 week follow up swa llow test, throat pain, dry throat Reason Comments Establish Care New patient - c/o bl eeding after intercourse, started 2 weeks ago, stopped after a few days, then bled for a week. Assume that's a period, but normally periods are only 3 days. Would like to talk about control options - used depo before, struggled with keeping appointments, had Mirena before - did not like that one, thinking Nexplanon. Prev TOWER HAND with [facility]. Last annual done 03/22/23. Reason Comments Thyroid nodule Reason Comments New Pain Reason Comments Radio Gen RMP Specialty Diagnoses / Procedures Referred By Contac t Referred To Contact MR IMAGING Diagnoses Acute right ankle pain Procedures MRI ANKLE WO IVCON RIGHT MRI ANY JT LOWER EXTREM W/[place] [address] [place] [address] Mr Imaging [facility] Referral ID Status Reason Start Date Expiration Date V isits Requested Visits Authorized [id number] Closed Auto-Generate d Referral 01/11/2024 02/09/2025 1 1 Reason Comments Appointment Reason Comments Follow Up MRI review Reason Comments New Patient Evaluation Cough X 2 days Reason Comments Thyroid Problem Specialty Diagnoses / Procedures Referred By Contac t Referred To Contact Endocrinology Diagnoses S/P complete thyroidectomy Postoperative hypothyroidism Procedures CONSULT TO ENDOCRINOLOGY OFFICE/OUTPATIENT NEW HIGH MDM [address] [place] [address] [place] [address] Referral ID Status Reason Start Date Expiration Date V isits Requested Visits Authorized [id number] Closed PCP Requested Referral 02/22/2024 02/21/2025 1 1 Reason Comments Orders MRI Cervical spine w / IV contrast Reason Comments Orders EMG bilateral hands Reason Comments Orders MRI cervical spine w /o IV contrast Reason Comments Appointment New patient Reason Comments AUB AUB - period full mo nth, stopped for a few days, then started again. Breast pain in between periods. Has Nexplanon. Reason Comments Consult patient desires hyst erectomy - Jaena patient Reason Comments Follow-up One year thyroidecto my check Reason Comments Procedure EMB Reason Comments Refill Request levothyroxine Reason Comments Post-op post op hyster b; pt needing to return to work Care Teams (unrecognized sec tion and content) Cnc Service Technician Relationship Specialty Start Date End Date Winston Ruiz, DO [address] [place] [address] PCP - General Family Practice 03/06/14 Cnc Service Technician Relationship Specialty Start Date End Date Winston Ruiz, DO [address] [place] [address] PCP - General Family Practice 03/06/14 Cnc Service Technician Relationship Specialty Start Date End Date Winston Ruiz, DO [address] [place] [address] PCP - General Family Practice 03/06/14 Cnc Service Technician Relationship Specialty Start Date End Date Winston Ruiz, DO [address] [place] [address] PCP - General Family Practice 03/06/14 Cnc Service Technician Relationship Specialty Start Date End Date Winston Ruiz, DO [address] [place] [address] PCP - General Family Practice 03/06/14 Cnc Service Technician Relationship Specialty Start Date End Date Winston Ruiz, DO [address] [place] [address] PCP - General Family Practice 03/06/14 Cnc Service Technician Relationship Specialty Start Date End Date Winston Ruiz, DO [address] [place] [address] PCP - General Family Practice 03/06/14 Cnc Service Technician Relationship Specialty Start Date End Date Winston Ruiz, DO [address] [place] [address] PCP - General Family Practice 03/06/14 Cnc Service Technician Relationship Specialty Start Date End Date Winston Ruiz, DO [address] [place] [address] PCP - General Family Practice 03/06/14 Cnc Service Technician Relationship Specialty Start Date End Date Winston Ruiz, DO [address] [place] [address] PCP - General Family Practice 03/06/14 Cnc Service Technician Relationship Specialty Start Date End Date iWnston Ruiz, DO [address] [place] [address] PCP - General Family Practice 03/06/14 Cnc Service Technician Relationship Specialty Start Date End Date Winston Ruiz, DO [address] [place] [address] PCP - General Family Practice 03/06/14 Cnc Service Technician Relationship Specialty Start Date End Date Winston Ruiz, DO [address] [place] [address] PCP - General Family Practice 03/06/14 Cnc Service Technician Relationship Specialty Start Date End Date Winston Ruiz, DO [address] [place] [address] PCP - General Family Practice 03/06/14 Cnc Service Technician Relationship Specialty Start Date End Date Winston Ruiz, DO [address] [place] [address] PCP - General Family Practice 03/06/14 Cnc Service Technician Relationship Specialty Start Date End Date Winston Ruiz, DO [address] [place] [address] PCP - General Family Practice 03/06/14 Cnc Service Technician Relationship Specialty Start Date End Date Winston Ruiz, DO [address] [place] [address] PCP - General Family Practice 03/06/14 Cnc Service Technician Relationship Specialty Start Date End Date Winston Ruiz, DO [address] [facility] [place] [address] PCP - General Family Practice 03/06/14 Cnc Service Technician Relationship Specialty Start Date End Date iWnston Ruiz, DO [address] [place] [address] PCP - General Family Practice 03/06/14 Cnc Service Technician Relationship Specialty Start Date End Date Winston Ruiz, DO [address] [place] [address] PCP - General Family Medicine 03/06/14 Cnc Service Technician Relationship Specialty Start Date End Date Winston Ruiz, DO [address] [facility] [place] [address] PCP - General Family Medicine 03/06/14 Cnc Service Technician Relationship Specialty Start Date End Date Winston Ruiz PCP - General 09/26/15 Cnc Service Technician Relationship Specialty Start Date End Date Winston Ruiz, DO [address] [facility] [place] [address] PCP - General Family Medicine 03/06/14 Cnc Service Technician Relationship Specialty Start Date End Date [facility], Other [address] [place] [address] PCP - General Family Medicine 03/07/23 Cnc Service Technician Relationship Specialty Start Date End Date Olga Dhillon CNP [address] [place] [address] PCP - General Nurse Practitioner 10/22/22 Power Delaney Community Health Worker Manager Of Quality 10/30/22 Cnc Service Technician Relationship Specialty Start Date End Date Alejo Olga Radha CENTRAL SUPPLY MANAGER [address] [place] [address] PCP - General Nurse Practitioner 10/22/22 Power Delaney Community Health Worker Manager Of Quality 10/30/22 Cnc Service Technician Relationship Specialty Start Date End Date Olga Dhillon CNP [address] [place] [address] PCP - General Nurse Practitioner 10/22/22 Power Delaney Community Health Worker Manager Of Quality 10/30/22 Cnc Service Technician Relationship Specialty Start Date End Date Olga Dhillon CENTRAL SUPPLY MANAGER [address] [place] [address] PCP - General Nurse Practitioner 10/22/22 Power Delaney Community Health Worker Manager Of Quality 10/30/22 Cnc Service Technician Relationship Specialty Start Date End Date Olga Dhillon CENTRAL SUPPLY MANAGER [address] [place] [address] PCP - General Nurse Practitioner 10/22/22 Power Delaney Community Health Worker Manager Of Quality 10/30/22 Cnc Service Technician Relationship Specialty Start Date End Date Alejo Olga Burnett CNP [address] [place] [address] PCP - General Nurse Practitioner 10/22/22 Power Delaney Community Health Worker Manager Of Quality 10/30/22 Cnc Service Technician Relationship Specialty Start Date End Date Olga Dhillonce CENTRAL SUPPLY MANAGER [address] [place] [address] PCP - General Nurse Practitioner 10/22/22 Power Delaney Community Health Worker Manager Of Quality 10/30/22 Cnc Service Technician Relationship Specialty Start Date End Date Alejo Olga Burnett CNP [address] [place] [facility] [address] PCP - General Nurse Practitioner 10/22/22 Power Delaney Community Health Worker Manager Of Quality 10/30/22 Cnc Service Technician Relationship Specialty Start Date End Date Olga Dhillon CNP [address] [place] [address] PCP - General Nurse Practitioner 10/22/22 Power Delaney Community Health Worker Manager Of Quality 10/30/22 Cnc Service Technician Relationship Specialty Start Date End Date Olga Dhillon CNP [address] [place] [address] PCP - General Nurse Practitioner 10/22/22 Power Delaney [facility] Worker Manager Of Quality 10/30/22 Cnc Service Technician Relationship Specialty Start Date End Date Olga Dhillon CENTRAL SUPPLY MANAGER [address] [place] [address] PCP - General Nurse Practitioner 10/22/22 Power Delaney [facility] Worker Manager Of Quality 10/30/22 Cnc Service Technician Relationship Specialty Start Date End Date Alejo Olga Radha CENTRAL SUPPLY MANAGER [address] [place] [address] PCP - General Nurse Practitioner 10/22/22 Power Delaney Community Health Worker Manager Of Quality 10/30/22 Cnc Service Technician Relationship Specialty Start Date End Date Olga Dhillon CENTRAL SUPPLY MANAGER [address] [place] [address] PCP - General Nurse Practitioner 10/22/22 Power Delaney Community Health Worker Manager Of Quality 10/30/22 Cnc Service Technician Relationship Specialty Start Date End Date Alejo Olgaabel Burnett CENTRAL SUPPLY MANAGER [address] [place] [address] PCP - General Nurse Practitioner 10/22/22 Power Delaney [facility] Worker Manager Of Quality 10/30/22 Cnc Service Technician Relationship Specialty Start Date End Date Edilberto Dhillonabel Burnett BEATRICE [address] [place] [address] PCP - General Nurse Practitioner 10/22/22 Power Delaney [facility] Worker Manager Of Quality 10/30/22 Cnc Service Technician Relationship Specialty Start Date End Date Olga DhillonBEATRICE zabala [address] [place] [address] PCP - General Nurse Practitioner 10/22/22 Power Delaney [facility] 10/30/22 Cnc Service Technician Relationship Specialty Start Date End Date Alejo Olga Burnett CNP [address] [place] [address] PCP - General Nurse Practitioner 10/22/22 Power Delaney [facility] Manager Of Quality 10/30/22 Cnc Service Technician Relationship Specialty Start Date End Date Santi Lam [address] [place] [address] PCP - General 05/23/23 Cnc Service Technician Relationship Specialty Start Date End Date Santi Lam [address] [place] [address] PCP - General 05/23/23 Cnc Service Technician Relationship Specialty Start Date End Date Alejo Olga Burnett CNP [address] [place] [address] PCP - General Nurse Practitioner 10/22/22 Power Delaney [facility] Worker Manager Of Quality 10/30/22 Cnc Service Technician Relationship Specialty Start Date End Date Eri Mckeon CNP [address] [place] [id number] PCP - General Family Medicine 09/15/23 Rhett, Power D Community Health Worker Manager Of Quality 10/30/22 Cnc Service Technician Relationship Specialty Start Date End Date Eri Mckeon CNP [address] [place] [id number] PCP - General Family Medicine 09/15/23 Rhett, Power D Community Health Worker Manager Of Quality 10/30/22 Cnc Service Technician Relationship Specialty Start Date End Date Eri Mckeon CNP [address] [place] [address] PCP - General Family Medicine 09/15/23 Rhett, Power D Community Health Worker Manager Of Quality 10/30/22 Cnc Service Technician Relationship Specialty Start Date End Date Eri Mckeon TanishaBEATRICE cazares [address] [place] [id number] PCP - General Family Medicine 09/15/23 Rhett, Power D Community Health Worker Manager Of Quality 10/30/22 Cnc Service Technician Relationship Specialty Start Date End Date Michelle Rain CNP [address] [place] [address] PCP - General Nurse Practitioner 11/16/23 Rhett, Power D Community Health Worker Manager Of Quality 10/30/22 Cnc Service Technician Relationship Specialty Start Date End Date Michelle Rain [address] [place] [address] PCP - General Family Medicine 12/26/23 Cnc Service Technician Relationship Specialty Start Date End Date Michelle Rain [address] [place] [address] PCP - General Family Medicine 12/26/23 Cnc Service Technician Relationship Specialty Start Date End Date Michelle Rain [address] [place] [address] PCP - General Family Medicine 12/26/23 Cnc Service Technician Relationship Specialty Start Date End Date Michelle Rain [address] [place] [address] PCP - General Family Medicine 12/26/23 Cnc Service Technician Relationship Specialty Start Date End Date Michelle Rain [facility] [place] [address] PCP - General Family Medicine 12/26/23 Cnc Service Technician Relationship Specialty Start Date End Date Michelle Rain [facility] [place] [address] PCP - General Family Medicine 12/26/23 Cnc Service Technician Relationship Specialty Start Date End Date Michelle Rain [facility] [place] [address] PCP - General Family Medicine 12/26/23 Cnc Service Technician Relationship Specialty Start Date End Date Varinder Patel DO [address] [place] [id number] PCP - General Family Medicine 03/02/24 Cnc Service Technician Relationship Specialty Start Date End Date Varinder Patel DO [address] [place] [id number] PCP - General Family Medicine 03/02/24 Cnc Service Technician Relationship Specialty Start Date End Date Varinder Patel DO [address] [place] [address] [place] [address] PCP - General Family Medicine 03/02/24 Cnc Service Technician Relationship Specialty Start Date End Date Varinder Patel DO [address] [place] [address] PCP - General Family Medicine 03/02/24 Cnc Service Technician Relationship Specialty Start Date End Date Varinder Patel DO [address] [place] [address] PCP - General Family Medicine 03/02/24 Cnc Service Technician Relationship Specialty Start Date End Date Winston Ruiz DO [address] [place] [address] PCP - General Family Medicine 03/06/14 12/25/23 Cnc Service Technician Relationship Specialty Start Date End Date Michelle Rain CNP [address] [place] [address] PCP - General Nurse Practitioner 11/16/23 Power Delaney Community Health Worker Manager Of Quality 10/30/22 Cnc Service Technician Relationship Specialty Start Date End Date Michelle Rain CNP [address] [place] [phone] PCP - General Nurse Practitioner 11/16/23 Power Delaney Community Health Worker Manager Of Quality 10/30/22 Cnc Service Technician Relationship Specialty Start Date End Date Michelle Rain CNP [address] [phone] PCP - General Nurse Practitioner 11/16/23 Power Delaney Community Health Worker Manager Of Quality 10/30/22 Cnc Service Technician Relationship Specialty Start Date End Date Michelle Rain CNP [address] [phone] PCP - General Nurse Practitioner 11/16/23 Power Delaney [facility] 10/30/22 Cnc Service Technician Relationship Specialty Start Date End Date Michelle Rain CNP [address] [phone] PCP - General Nurse Practitioner 11/16/23 Power Delaney [facility] 10/30/22 Cnc Service Technician Relationship Specialty Start Date End Date Michelle Rain CNP [address] [place] [address] PCP - General Nurse Practitioner 11/16/23 Power Delaney [facility] 10/30/22 Cnc Service Technician Relationship Specialty Start Date End Date Varinder Patel DO [address] [place] [address] PCP - General Family Medicine 03/02/24 Michelle Rain CNP [address] [place] [address] Referring Family Medicine 05/23/24 Cnc Service Technician Relationship Specialty Start Date End Date Jose A Dougherty CNP [address] [place], [place] [id number] PCP - General Nurse Practitioner 03/05/25 Power Delaney [facility] 10/30/22 Scheduled Active and Recently Administ ered Medications (unrecognized section and content) Medication Order 03/05/2023 03/06/2023 03/07/2023 Dicyclomine (BENTYL) capsule 10 mg (COMPLETED) 10 mg, Oral, ONCE, 1 dose, On 03/07/23 at 3129 2217 (Given - Provid er: Luiza Teague RN) hydroCODone-acetaminophen (NORCO) 5-325 MG per tablet 1 tablet (COMPLETED) 1 tablet, Oral, ONCE, 1 dose, On 03/07/23 at 2130, 2053 (Given - Provid er: Luiza Teague RN) ondansetron (ZOFRAN-ODT) disintegrating tablet 1 Each Oral, SEE ADMIN INSTRUCTIONS, Starting on 03/07/23 at 2256, Until Wed03/08/23 at 0124, Provide patient with 2 pack of Ondansetron 4mg ODT tablets, dissolve 1 tablet on tongue every 4 to 6 hours as needed for nausea or vomiting. Nursing to document as GIVEN on the SEP and include comment of patient receipt of the 2 pack. 2318 (Given - Provid er: Luiza Teague RN) ondansetron (ZOFRAN-ODT) disintegrating tablet 4 mg (COMPLETED) 4 mg, Oral, ONCE, 1 dose, On 03/07/23 at 2130 2053 (Given - Provid er: Luiza Teague RN) potassium bicarbonate (EFFER-K) effervescent tablet 50 mEq (COMPLETED) 50 mEq, Oral, ONCE, 1 dose, On 03/07/23 at 2215, Effervescent tablet; Must be dissolved in the amount of diluent recommended by the band saw operator cake cutting. Solution should be sipped slowly, over 5-10 minutes. 2203 (Given - Provid er: Luiza Teague RN) Promethazine (PHENERGAN) tablet 25 mg (COMPLETED) 25 mg, Oral, ONCE, 1 dose, On 03/07/23 at 2345 231 (Given - Provid er: Luiza Teague RN) Scheduled Medication Order 08/04/2023 08/05/2023 08/06/2023 ascorbic acid (vitamin C) (VITAMIN C) tablet 1,000 mg 1,000 mg, Oral, Daily, First dose on Wed08/05/23 at 0900 0902 (Given - Provider: Bre Figueredo RN) 0815 (Given - Provider: Thania Sykes RN) ceFAZolin (ANCEF) IVPB 2 g (premix) (COMPLETED) 2,000 mg, Intravenous, at 100 mL/hr, Once, On Wed08/04/23 at 1100, For 1 dose, Pre-Procedure, Administer prior to incision., Indication (PRE PROCEDURE): OTHER, Indication (PRE PROCEDURE): General surgery procedure 1227 (Given - Provider: Lyndsay Lugo CRNA)1617 (Given - Provider: Lyndsay Lugo CRNA) enoxaparin (LOVENOX) syringe 30 mg 30 mg, Subcutaneous, Daily, First dose on Jenny 08/05/23 at 0900, Administer in abdomen unless otherwise directed by prescriber. Notify physician if patient refuses., Indication: VTE Prophylaxis 0903 (Given - Provider: Bre Figueredo RN) 0816 (Given - Provider: Thania Sykes RN) enoxaparin (LOVENOX) syringe 40 mg (COMPLETED) 40 mg, Subcutaneous, Once, On Wed08/04/23 at 1100, For 1 dose, Pre-Procedure, Administer in abdomen unless otherwise directed by prescriber. Notify physician if patient refuses., Indication: VTE Prophylaxis 1043 (Given - Provider: Yesica Sosa RN - Comment: RLQ) levothyroxine (SYNTHROID, LEVOTHROID) tablet 175 mcg 175 mcg, Oral, Daily, First dose (after last modification) on Wed08/06/23 at 0600, take on an empty stomach, only with water, 1 hour before food / drinks / other meds, and 4 hours apart from calcium, magnesium, iron, multivitamin supplements. If misses a dose one day, take double the dose next day For patients on continuous tube feed: Hold TF from 1 hr before until 1 hr after each dose. TF rate may need adjustment to meet caloric needs. 0516 (Given - Provider: Thania Sykes RN) levothyroxine (SYNTHROID, LEVOTHROID) tablet 88 mcg (CANCELED) 88 mcg, Oral, Daily, First dose on Jenny 08/05/23 at 0600, Take 1.5 hours prior to meal on an empty stomach. Do not eat for 1.5 hours. For patients on continuous tube feed: Hold TF from 1 hr before until 1 hr after each dose. TF rate may need adjustment to meet caloric needs. 0554 (Given - Provider: Emeka Nicholas RN) midazolam (VERSED) injection 2 mg (COMPLETED) 2 mg, Intravenous, Once, On Wed08/04/23 at 1145, For 1 dose, Pre-Procedure 1101 (Given - Provider: Yesica Sosa RN) pantoprazole (PROTONIX) EC tablet 40 mg 40 mg, Oral, 2 times daily, First dose on Jenny 08/05/23 at 0900, DO NOT CRUSH OR CHEW. 09 (Given - Provider: Bre Figueredo RN)2008 (Given - Provider: Thania Sykes RN) 0815 (Given - Provider: Thania Sykes RN) QUEtiapine (SEROQUEL XR) 24 hr tablet 150 mg 150 mg, Oral, Nightly, First dose on Jenny 08/05/23 at 2100, DO NOT CRUSH OR CHEW. May cause QT interval prolongation. 2007 (Given - Provider: Thania Sykes RN) senna-docusate (SENNA-S) 8.6-50 mg per tablet 1 tablet 1 tablet, Oral, 2 times daily, First dose on Wed08/04/23 at 2200, NOT for abdominal surgery patients. Hold for loose stools. Do Not Crush or Chew if administering orally due to bitter taste. May be crushed if given via tube. 2200 (Not Given - Provider: Lindsay Lucero RN - Reason: Other - Comment: not given due to procedure; not able to swallow) 901 (Given - Provider: Bre Figueredo RN)2007 (Given - Provider: Thania Sykes RN) 0816 (Given - Provider: Thania Sykes RN) Continuous Medication Order 08/04/2023 08/05/2023 08/06/2023 lactated Ringers infusion (CANCELED) 75 mL/hr, Intravenous, Continuous, Starting on Wed08/04/23 at 1100 1042 (New Bag - Provider: Yesica Sosa RN)1210 (Continued by Anesthesia - Provider: Lyndsay Lugo CRNA)1210 (Paused - Provider: Lyndsay Lugo CRNA - Comment: Switch to gravity)1211 (Restarted - Provider: Lyndsay Lugo CRNA)1346 (New Bag - Provider: Lyndsay Lugo CRNA)1636 (Anesthesia Volume Adjustment - Provider: Lyndsay Lugo CRNA)1730 (Stopped - Provider: Krysta Cochran RN) lactated Ringers infusion (CANCELED) 50 mL/hr, Intravenous, Continuous, Starting on Wed08/04/23 at 1730, PACU (only) 1730 (New Bag - Provider: Krysta Cochran RN) 1535 (Stopped - Provider: Cody Fitzpatrick, TANIA) sodium chloride 0.9% (NS) (CANCELED) 30 mL/hr, Intravenous, Continuous, Starting on Wed08/04/23 at 2115 2232 (New Bag - Provider: Lindsay Lucero RN) 0018 (Paused - Provider: Bre Figueredo RN)0022 (Restarted - Provider: Bre Figueredo RN)0045 (Paused - Provider: Bre Figueredo RN)0048 (Restarted - Provider: Bre Figueredo RN)0903 (Paused - Provider: Bre Figueredo, RN)0904 (Restarted - Provider: Bre Figueredo RN)0936 (Paused - Provider: Bre Figueredo RN)1006 (Restarted - Provider: Bre Figueredo RN)1250 (Paused - Provider: Bre Figueredo RN)1251 (Restarted - Provider: Bre Figueredo RN)1513 (Stopped - Provider: Bre Figueredo RN) PRN Medication Order 08/04/2023 08/05/2023 08/06/2023 fentaNYL (SUBLIMAZE) inj syringe 25 mcg (CANCELED) 25 mcg, Intravenous, Every 5 min PRN, Pain, Starting on Wed08/04/23 at 1632, For 12 doses, PACU (only), [] Do not give more than 300 mcg while in PACU. 1728 (Given - Provider: Krysta Cochran RN)1844 (Given - Provider: Krysta Cochran RN) HYDROcodone-acetaminophen (NORCO) 5-325 mg per tablet 1-2 tablet 1-2 tablet, Oral, Every 4 hours PRN (may repeat), moderate to severe pain, Starting on Wed08/04/23 at 2015, Initiate with 1 tablet oral every 4 hours prn moderate to severe pain. For unrelieved pain, may repeat 1 tablet within 60 minutes of initial dose. If pain is RELIEVED after repeat dose, change to two tablets of 5/325 mg every 4 hours prn moderate to severe pain. If pain is UNrelieved after repeat dose, or patient requires dose reduction, call physician. 1404 (Given - Provider: Bre Figueredo, TANIA)1504 (Given - Provider: Bre Figueredo, RN)1848 (Given - Provider: Bre Figueredo RN) 0358 (Given - Provider: Thania Sykes RN)0814 (Given - Provider: Thania Sykes RN) HYDROmorphone (DILAUDID) injection 0.25 mg (CANCELED) 0.25 mg, Intravenous, Every 5 min PRN, Pain, Starting on Wed08/04/23 at 1632, For 8 doses, PACU (only), Give if fentanyl not effective or not ordered. Do not give more than 2 mg total. 1858 (Given - Provider: Krysta Cochran RN) HYDROmorphone (DILAUDID) injection 0.25 mg (CANCELED) 0.25 mg, Intravenous, Every 3 hours PRN (may repeat), moderate to severe pain, Starting on Wed08/04/23 at 2014, Initiate with 0.25 mg IV every 3 hours prn moderate to severe pain. For unrelieved pain, may repeat 0.25 mg within 30 minutes of initial dose. 2147 (Given - Provider: Leeanne Tadeo RN) 0145 (Given - Provider: Emeka Nicholas, TANIA)0600 (Given - Provider: Emeka Nicholas, TANIA)0902 (Given - Provider: Bre Figueredo RN)1251 (Given - Provider: Bre Figueredo RN)1933 (Given - Provider: Thania Sykes, TANIA) 0128 (Given - Provider: Thania Sykes RN)0520 (Given - Provider: Thania Sykes RN) hydrOXYzine (ATARAX) tablet 50 mg 50 mg, Oral, Every 12 hours PRN, anxiety, Starting on Jenny 08/05/23 at 1109 1405 (Given - Provider: Bre Figueredo, TANIA)2004 (Not Given - Provider: Thania Sykes RN - Reason: Patient/family refused) naloxone (NARCAN) injection 0.1 mg(Linked Group 1) 0.1 mg, Intravenous, As needed, opioid reversal, For respiratory rate less than or equal to 8 per minute., Starting on Wed08/04/23 at 2014, Mix nalOXone (NARCAN) 0.4 mg (1mL) with 9 mL of Normal Saline to total 10 mL. Administer 0.1 mg (2.5mL) IV Push every 2 minutes until respiratory rate is 10 or greater. naloxone (NARCAN) injection 0.4 mg(Linked Group 1) 0.4 mg, Intravenous, As needed, opioid reversal, patient is pulseless, breathless, and unresponsive, Starting on Wed08/04/23 at 2014, Call a code first, then administer naloxone dose undiluted IV Push over 30 seconds. ondansetron (ZOFRAN) injection 4 mg (COMPLETED) 4 mg, Intravenous, Once as needed, nausea, vomiting, Starting on Wed08/04/23 at 1632, For 1 dose, PACU (only), Administer first as needed for nausea/vomiting, or as directed by anesthesia 1905 (Given - Provider: Krysta Cochran RN) ondansetron (ZOFRAN) injection 4 mg(Linked Group 2) 4 mg, Intravenous, Every 6 hours PRN, nausea, vomiting, Starting on Wed08/04/23 at 2014, [] Oral or IV - use oral route if tolerated. ondansetron (ZOFRAN-ODT) disintegrating tablet 4 mg(Linked Group 2) 4 mg, Oral, Every 6 hours PRN, nausea, vomiting, Starting on Wed08/04/23 at 2014, [] Oral or IV - use oral route if tolerated. Formulation requires tablet remain in sealed package until immediately prior to dose being administered. sterile water irrigation solution (CANCELED) As needed, Starting on Wed08/04/23 at 1555, Intra-Procedure 1555 (Given - Provider: Gilles Kim MD - Comment: Neck) Linked Groups Order Group 1: naloxone (NARCAN) injection 0.1 mgJump to med 0.1 mg, Intravenous, As needed, opioid reversal, For respiratory rate less than or equal to 8 per minute., Starting on Wed08/04/23 at 2014
Mix nalOXone (NARCAN) 0.4 mg (1mL) with 9 mL of Normal Saline to total 10 mL. Administer 0.1 mg (2.5mL) IV Push every 2 minutes until respiratory rate is 10 or greater.
And Notify physician (CANCELED) STAT, Until discontinued, Starting on Wed08/04/23 at 2015, Until Specified
Respiratory rate less than: 8
For respiratory rate less than or equal to 8, notify physician and/or appropriate staff for additional orders. And naloxone (NARCAN) injection 0.4 mgJump to med 0.4 mg, Intravenous, As needed, opioid reversal, patient is pulseless, breathless, and unresponsive, Starting on Wed08/04/23 at 2014
Call a code first, then administer naloxone dose undiluted IV Push over 30 seconds.
Group 2: ondansetron (ZOFRAN-ODT) disintegrating tablet 4 mgJump to med 4 mg, Oral, Every 6 hours PRN, nausea, vomiting, Starting on Wed08/04/23 at 2014
[] Oral or IV - use oral route if tolerated. Formulation requires tablet remain in sealed package until immediately prior to dose being administered.
Or ondansetron (ZOFRAN) injection 4 mgJump to med 4 mg, Intravenous, Every 6 hours PRN, nausea, vomiting, Starting on Wed08/04/23 at 2014
[] Oral or IV - use oral route if tolerated.
FOR RECORDS PERTAINING TO PATIENTS WHO ARE OR HAVE BEEN ENROLLED IN A CHEMICAL DEPENDENCY/SUBSTANCEABUSE PROGRAM, SOME INFORMATION MAY BE OMITTED. This clinical summary was aggregated from multiple sources. Caution should be exercised in using it in the provision of clinical care. This summary normalizes information from multiple sources, and as a consequence, information in this document may materially change the coding, format and clinical context of patient data. In addition, data may be omitted in some cases. CLINICAL DECISIONS SHOULD BE BASED ON THE PRIMARY CLINICAL RECORDS. [employer] provides no warranty or guarantee of the accuracy or completeness of information in this document.
--- NOTE | 2025-05-19 19:15 | EX.ED.DYSGE1 ---
HPI History of Present Illness Chief Complaint: General Illness Narrative Narrative: 40-year-old female presents with her partner because of generalized weakness, lightheadedness, with nausea and vomiting that began earlier today. She does have a history of carcinoma in the state that she has history of dumping syndrome as well. All last week she had loose stool multiple times every day. She states it is usually worse in the morning, then tapers off during the day. She was out driving around and did not feel well. She felt lightheaded in her car. She thinks her potassium might be low because it has been in the past although she states she had blood work last week and it was normal. She endorses malaise and fatigue. Denies any fevers or chills. No cough. No problems with urination. [facility] Medical History Anemia Dumping syndrome Thyroid cancer HTN (hypertension) Bipolar disorder Home Medications ?Medication ?Instructions ?Recorded ?Last Taken ?Type sulfamethoxazole 800 1 tab PO BID #6 TABLETS 02/18/22 Unknown Rx mg-trimethoprim 160 mg tablet ascorbic acid (vitamin C) 1,000 mg 1,000 mg PO DAILY 04/18/25 Unknown History tablet ferrous sulfate 325 mg (65 mg 325 mg PO BID 04/18/25 Unknown History iron) tablet (FeroSul) folic acid 1 mg tablet 1 mg PO DAILY 04/18/25 Unknown History lamotrigine 200 mg tablet 200 mg PO DAILY 04/18/25 Unknown History levothyroxine 200 mcg tablet 200 mcg PO DAILY 04/18/25 Unknown History magnesium oxide 400 mg (241.3 mg 400 mg PO DAILY 04/18/25 Unknown History magnesium) tablet potassium chloride 20 mEq oral 20 meq PO Q6H 04/18/25 Unknown History packet prazosin 1 mg capsule 1 mg PO QHS 04/18/25 Unknown History Allergy/AdvReac Type Severity Reaction Status Date / Time adhesive tape Allergy Rash Verified 05/19/25 18:16 mirtazapine (From Remeron) AdvReac Intermediate EXTREME Verified 05/19/25 18:16 MOOD SWINGS Surgical History H/O thyroidectomy History of lung surgery Hx of cholecystectomy Social History Smoking Status: Current every day smoker tobacco type: cigarettes substance use type: marijuana ROS ROS ED ROS Narrative Review of systems positive for 2 episodes of nausea and vomiting earlier today, no hematemesis. Positive loose stool multiple times this morning. Generalized weakness. No fevers or chills. No cough. No problems with urination. EXAM Physical Exam Narrative Exam Narrative: Afebrile. Vital signs noted. Nontoxic-appearing. Cardiovascular examination reveals a regular rate and rhythm. Lungs are clear to auscultation bilaterally. Abdomen is soft and nontender with positive bowel sounds. No guarding or rebound. Neurological examination nonfocal, nonlateralizing. Moist mucous membranes. Const Vital Signs: 05/19/25 18:14 05/19/25 18:23 05/19/25 19:51 Temperature 98.2 F Temperature Source Oral Pulse Rate 90 Pulse Rate [Lying] 52 L Pulse Rate [Sitting (for 1 minute prior to obtaining)] 57 L Pulse Rate [Standing (for 1 minute prior to obtaining)] 48 L Respiratory Rate 18 Respiratory Effort Normal Non-Labored Blood Pressure 131/76 H Blood Pressure [Lying] 105/56 L Blood Pressure [Sitting (for 1 minute prior to obtaining)] 127/83 H Blood Pressure [Standing (for 1 minute prior to obtaining)] 132/78 H Blood Pressure Mean 94 Blood Pressure Mean [Lying] 72 Blood Pressure Mean [Sitting (for 1 minute prior to obtaining)] 97 Blood Pressure Mean [Standing (for 1 minute prior to obtaining)] 96 Pulse Ox 99 Oxygen Delivery Method Room Air MDM MDM MDM Narrative Medical decision making narrative: I reviewed her prior records. She does have history of thyroid carcinoma, and dumping syndrome. Concern is for dehydration versus intravascular volume depletion versus other electrolyte abnormality. She is not tachycardic, however orthostatics will be obtained and she will be bolused normal saline 1 L intravenously. I do not feel that a test is indicated as she is involved in a same-sex relationship. Additionally she is not having any pelvic or lower abdominal pain. I reviewed her laboratory work. She has normal white count at 10.0 with hemoglobin slightly hemoconcentrated at 15.1 with hematocrit 43.9, platelet count normal at 401. Magnesium normal at 2.1. Lipase is also normal at 14 so I doubt pancreatitis for her nausea and vomiting. Orthostatics did not show a significant increase in her heart rate. I reviewed her urinalysis and it is negative for ketones, negative for infection. I do not feel antibiotics are indicated. Patient was able to ambulate for her urine sample. Upon repeat examination, she is lying in bed. She states she has a headache now. Her partner states that this is part of her syndrome and thinks that it may be related to anxiety. However, patient is already on hydroxyzine and takes 50 mg up to 3 times a day. She states the symptoms are giving her anxiety but does not think that this is an anxiety attack. Her partner was told that benzodiazepines need to come from her primary care provider or her psychiatrist as they are not written from the emergency department because they need titration. At this point in time, patient states that she would like to be discharged to go home. I feel that she does not require observation or admission and that she can be discharged to follow-up. Return instructions reviewed. Disposition is discharged home in stable condition. History & Record Review Discussion w/independent historian: Patient and Significant other Additional record(s) reviewed:: Prior ED visit Lab Data Attestation: I reviewed the patient's lab results. Labs: Laboratory Results - last 24 hr 05/19/25 05/19/25 18:30 19:45 WBC 10.0 RBC 4.81 Hgb 15.1 H Hct 43.9 MCV 91.3 MCH 31.4 MCHC 34.4 RDW Std Deviation 42.5 RDW Coeff of Jeri 12.6 Plt Count 401 MPV 10.4 Immature Gran % (Auto) 0.100 Neut % (Auto) 58.1 Lymph % (Auto) 30.1 [place] % (Auto) 9.2 Eos % (Auto) 1.7 Baso % (Auto) 0.8 Absolute Neuts (auto) 5.8 Absolute Lymphs (auto) 3.02 Nucleated RBC % 0 Sodium 140 Potassium 3.3 Chloride 99 Carbon Dioxide 25.7 Anion Gap 15 BUN 5 Creatinine 0.77 Estim Creat Clear Calc 130.25 Est GFR (MDRD) Non-Af 99 BUN/Creatinine Ratio 5.9 L Glucose 85 Calcium 9.3 Magnesium 2.1 Total Bilirubin 0.51 AST 12 ALT < 5 Alkaline Phosphatase 47 Total Protein 7.1 Albumin 4.6 Globulin 2.5 Albumin/Globulin Ratio 1.9 Lipase 14 Urine Color Straw Urine Clarity Clear Urine pH 7.0 Ur Specific [place] 1.020 Urine Protein Negative Urine Glucose (UA) Normal Urine Ketones Negative Urine Occult Blood Negative Urine Nitrite Negative Urine Bilirubin Negative Urine Urobilinogen Normal Ur Leukocyte Esterase Negative Urine RBC 0 SEEN Urine WBC 0 SEEN Ur Squamous Epith Cells 5-10 SEEN Urine Bacteria 1+ Urine Mucus 0 SEEN Discharge Plan Triage Chief Complaint: General Illness ED Provider: Phong Nettles Dx/Rx/DC Orders Clinical Impression: Generalized weakness, Dumping syndrome, Malaise Instructions: ED Weakness Uncertain Cause Prescriptions: No Action sulfamethoxazole-trimethoprim [sulfamethoxazole-trimethoprim] 1 TABLET tablet 1 tab PO BID Qty: 6 0RF ascorbic acid (vitamin C) 1,000 mg tablet 1,000 mg PO DAILY ferrous sulfate [FeroSul] 325 mg (65 mg iron) tablet 325 mg PO BID folic acid 1 mg tablet 1 mg PO DAILY lamotrigine 200 mg tablet 200 mg PO DAILY levothyroxine 200 mcg tablet 200 mcg PO DAILY magnesium oxide 400 mg (241.3 mg magnesium) tablet 400 mg PO DAILY potassium chloride 20 mEq packet 20 meq PO Q6H prazosin 1 mg capsule 1 mg PO QHS Primary Care Provider: HARRIET BARNES Referrals: HARRIET BARNES CRNP [Primary Care Provider, Family Practice] - 2 Days Activity Restrictions/Additional Instructions: Continue your previous medications and routines. Return with new or worsening symptoms. Print Language: Israeli Disposition Disposition: Home, Self Care
[2025-05-19 19:38] LABS: Hematocrit 43.9 % (37-47); Hemoglobin 15.1 g/dL (12.0-15.0); Immature Granulocytes Count 0.010 X10^3/uL (0.0-0.0); Mean Corp Hgb Conc 34.4 g/dL (32-36); Mean Corpuscular Volume 91.3 fL (81-99); Mean Platelet Vol. 10.4 fl (6.2-12.0); NRBC Flagged by Analyzer 0 % (0-5); Platelet Count 401 K/mm3 (150-450); RBC Distribution Width CV 12.6 % (11.6-14.6); RBC Distribution Width SD 42.5 fl (35.1-43.9); Red Blood Count 4.81 M/mm3 (4.2-5.4); White Blood Count 10.0 K/mm3 (4.4-11.0)
[2025-05-19] MEDS: 0.9% Normal Saline (1000mL) 1,000 ML 1000 ML IV (19:44)
[2025-05-19 19:51] VITALS: BP 105/56; BP 127/83; BP 132/78; PULSE 48; PULSE 52; PULSE 57
[2025-05-19 19:57] LABS: Mucous, Urine 0 SEEN /hpf (<or=2+); Red Blood Cells-Urine 0 SEEN /hpf (0-5)
[2025-05-19 19:57] LABS: Lipase 14 U/L (13-75); Magnesium 2.1 mg/dL (1.5-2.2)
[2025-05-19 20:05] LABS: Color, Urine Straw (Yellow); Glucose, Dipstick Normal (Normal); Ketone-Dipstick Negative (Negative); Leukocyte Esterase-Dipstick Negative /ul (Negative); Nitrite-Dipstick Negative (Negative); Occult Blood-Urine Negative /ul (Negative); Protein-Dipstick Negative (Negative); Specific Gravity, Urine 1.020 (1.002-1.030); Urine Bilirubin Dipstick Negative (Negative)
[2025-05-19 20:11] LABS: AST(SGOT) 12 U/L (<=31); Alanine Aminotransfer ALT/SGPT < 5 U/L (<=34); Albumin, Serum 4.6 g/dL (3.5-5.0); Alkaline Phosphatase 47 U/L (35-104); Anion Gap 15 (5-15); BUN 5 mg/dL (4-19); BUN/Creat Ratio 5.9 RATIO (10-20); Calcium,Total 9.3 mg/dL (7.6-11.0); Carbon Dioxide 25.7 mmol/L (21.0-32.0); Chloride 99 mmol/L (98-108); Estimated Creatinine Clearance 130.25 ml/min (50-250); Globulin 2.5 g/dL (2.2-4.2); Glucose 85 mg/dL (70-99); Potassium 3.3 mmol/L (3.3-5.1)
[2025-05-19 20:12] LABS: Squamous Epithelial Cells - UA 5-10 SEEN /hpf (5-10)
[2025-05-19 20:54] VITALS: BP 120/74; PULSE 67; RESP 16; TEMP 36.8; O2SAT 97
== END 2025-05-19 20:54 | disposition home or self-care (01) ==
PROVIDERS: Emergency Provider Emergency Medicine; PCP Nurse Practitioner Adult Health; Visit Provider Emergency Medicine
DX: R53.1 Weakness (principal); F31.9 Bipolar disorder, unspecified; R53.81 Other malaise; K91.1 Postgastric surgery syndromes; F17.210 Nicotine dependence, cigarettes, uncomplicated
CPT/HCPCS: 80053; 81001; 83690; 83735; 85025; 93005; 96360; 99284; A4216